=== PATIENT | female | born 1950 | race Caucasian/White ===

== ENCOUNTER 2019-04-02 09:34 | Outpatient (RCR) | payer MEDICARE, SELFPAY ==
[2019-04-02 10:09] LABS: Hemoglobin 11.7 g/dL (12.0-15.0); Mean Corpuscular Hemoglobin 25.4 pg (26-34); Mean Corpuscular Volume 84.6 fl (80-100); Mean Platelet Volume 9.2 fl (7.4-10.4); Platelet Count Result 183 k/mm3 (150-375); Red Blood Count 4.61 M/mm3 (4.2-5.4); Red Cell Distribution Width 16.7 % (11.5-14.5); White Blood Count 7.8 K/mm3 (4.5-10.0)
[2019-04-02 10:23] LABS: Alanine Aminotransferase 11 U/L (4-35); Alkaline Phosphatase 105 U/L (38-126); Aspartate Amino Transferase 20 U/L (14-36); Bilirubin,Total 0.3 mg/dL (0.2-1.3); Blood Urea Nitrogen 24 mg/dL (7-17); Calcium 9.4 mg/dL (8.4-10.2); Carbon Dioxide 35 mmol/L (22-30); Chloride 98 mmol/L (98-107); Estimated Glomerular Filt Rate > 60; Glucose 108 mg/dL (65-105); Potassium 4.7 mmol/L (3.4-5.0); Sodium 139 mmol/L (137-145)
== END 2019-07-01 23:59 | disposition home or self-care (01) ==
LOC: ANHLAB 09:34
PROVIDERS: Visit Provider Internal Medicine Rheumatology
DX: Z51.81 Encounter for therapeutic drug level monitoring (principal); Z79.899 Other long term (current) drug therapy
CPT/HCPCS: 36415; 80048; 80076; 85027

== ENCOUNTER 2019-04-05 08:03 | Outpatient (CLI) | payer MEDICARE, SELFPAY ==
--- NOTE | 2019-04-10 00:52 | SLEEP_ITS ---
BiPAP Titration DATE OF STUDY: 04/05/2019 ORDERING PHYSICIAN: Unruly Kirk, Nurse practitioner. REASON FOR THIS STUDY: History of obstructive sleep apnea syndrome on CPAP with oxygen, currently on CPAP with 4 L of oxygen, currently with hypercapnia, would benefit by a BiPAP titration. HISTORY: This patient is a 68-year-old female, 63 inches tall, weighing 120 pounds with a body mass index of 21.3. She has hypercapnic hypoxemic respiratory failure and is on oxygen chronically. She had a prior sleep study on 10/19/2010 that showed JOAQUIN with a RDI of 13.5 and desaturation. She had an abnormal resting room air saturation in the 80% range. A CPAP titration at [facility] on 12/30/2010 showed JOAQUIN, controlled on 9 cm of CPAP with supplemental oxygen at 4 L. She denies snoring. She does not awaken at night with heartburn, belching, or coughing. She denies awaking from sleep short of breath. She constantly has trouble sleeping with a cold and constantly gasps for breath at night. She denies that other people have observed her having breathing problems at night. She denies sweating excessively at night or noticing her heart pounding irregularly at night. She occasionally falls asleep during the day, occasionally involuntarily, never while driving, does not have loss of muscle tone with strong emotion, does not have daytime difficulties due to excessive sleepiness, occasionally does feel paralyzed on waking or falling asleep. She does not have vivid dreamlike scenes upon awakening or falling asleep. Denies feeling afraid to go to sleep, does not have nightmares, does not recall dreams, does not have racing thoughts, feelings of sadness, depression, anxiety, muscular tension. Denies kicking at night or having parts of her body jerk. She denies crawly achy feelings in her legs. She occasionally has leg pain at night. She does not have morning jaw pain and does not grind her teeth. She constantly is bothered by pain during the day as well as at night, constantly wakes up feeling stiff in the morning with sore achy muscles and spine pain. She has dizziness, palpitations, memory problems, and insomnia. Her sleep schedule shows that she goes to bed at about 9 p.m., taking 30 minutes to fall asleep, waking twice at night to go to the bathroom and staying awake on average for 1 hour. She awakens in the morning at 9 a.m. Weekend schedule is the same. She does take naps. A short nap might be refreshing. She is tired all the time even after taking a nap. She feels tired throughout the day. MEDICAL COMORBIDITIES: Include: 1. Hypertension. 2. Depression. 3. Atrial fibrillation. 4. COPD. 5. Chronic respiratory failure. MEDICATIONS: Include: 1. Oxygen at 5 L/minute, which was weaned at the last visit. 2. Losartan 25 mg a day. 3. Metformin 500 mg b.i.d. 4. Metoprolol succinate 100 mg a day. 5. Nortriptyline 25 mg at bedtime. 6. Ventolin 1 puff b.i.d. p.r.n. shortness of breath. 7. Diltiazem 60 mg q.8 hours. 8. Sertraline 50 mg a day. 9. Magnesium oxide 400 mg a day. 10. Potassium chloride 10 mEq daily. 11. Fluticasone furoate with umeclidinium and vilanterol, which is Trelegy 1 puff a day. 12. Furosemide 20 mg a day. 13. Roflumilast 500 mcg daily. HABITS: Previous tobacco. Two cups of coffee a day. No mention of alcohol. DESCRIPTION OF THE STUDY: On the [place] Sleepiness Scale, the score is 7. This was conducted as a full night BiPAP titration using the [employer] multiple channel system including EOG, EEG, submental EMG, EKG, nasal and oral airflow using thermistors and nasal pressure sensors, chest and abdominal belts, body position data and pulse oximetry. The study was scored using [facility] guidelines. Duration of the study, 508.6 son
== END 2019-04-05 08:04 | disposition home or self-care (01) ==
LOC: ANHCSM 08:04
PROVIDERS: Visit Provider Nurse Practitioner Family
DX: G47.33 Obstructive sleep apnea (adult) (pediatric) (principal)
CPT/HCPCS: 95811

== ENCOUNTER 2019-04-18 11:41 | Outpatient (CLI) | payer MEDICARE, SELFPAY ==
[2019-04-18 13:21] LABS: Hepatitis B Surface Antigen Negative (Negative)
[2019-04-18 13:38] LABS: Hepatitis B Surface Anti Res Negative; Hepatitis C Virus Antibody Negative (Negative)
[2019-04-20 18:04] LABS: Hepatitis C RNA, Quant PCR <15 IU/mL
[2019-04-20 18:22] LABS: Hepatitis B DNA PCR <1.00 Log IU/mL; Hepatitis B DNA PCR <10 IU/mL
[2019-04-20 23:23] LABS: NIL 0.01 IU/mL; Quantiferon TB Plus, 1T NEGATIVE (NEGATIVE); TB1-NIL 0.01 IU/mL
[2019-04-21 01:44] LABS: Hepatitis B Core Ab Total Nonreactive (Nonreactive)
== END 2019-04-18 11:42 | disposition home or self-care (01) ==
PROVIDERS: Visit Provider Internal Medicine Rheumatology
DX: Z11.59 Encounter for screening for other viral diseases (principal)
CPT/HCPCS: 36415; 86480; 86704; 86706; 86803; 87340; 87517; 87522

== ENCOUNTER 2019-05-26 22:11 | Emergency (ER) | payer MEDICARE, SELFPAY ==
[2019-05-26 22:13] VITALS: BP 158/72; PULSE 76; RESP 20; TEMP 36.4; O2SAT 92
--- NOTE | 2019-05-26 23:09 | ED.GENADULT ---
HPI - General Adult General Chief complaint: Ear Stated complaint: ear pain, ST Time Seen by Provider: 05/26/19 22:16 History of Present Illness HPI narrative: Patient is a 69-year-old female who presents the ER with several issues. Her main issue is right-sided jaw pain. She open her mouth earlier in evening and felt a pop at the mandibular condyle on the right side. Since then she has had pain with opening her mouth. Her teeth align normally she has no difficulty breathing or swallowing. Patient also reports over the last week she has had 2 episodes of having a sore throat as well as right ear pain. Denies any tinnitus or decreased hearing. Denies fever/chills/sweats/nausea/vomiting. Patient has chronic cough from her COPD as well as chronic dyspnea. She wears 4 L O2 at baseline. Related Data Home Medications Medication Instructions Recorded Confirmed Trelegy Ellipta 1 inh INHALATION DAILY 03/21/19 03/21/19 atorvastatin 10 mg PO DAILY 03/21/19 03/21/19 diltiazem HCl See Rx Instructions .ROUTE .COMPLEX 03/21/19 03/21/19 furosemide 40 mg PO DAILY 03/21/19 03/21/19 leflunomide 20 mg PO DAILY 03/21/19 03/21/19 losartan 25 mg PO DAILY 03/21/19 03/21/19 magnesium oxide 400 mg PO DAILY 03/21/19 03/21/19 metformin 500 mg PO BID 03/21/19 03/21/19 metoprolol succinate 100 mg PO DAILY 03/21/19 03/21/19 nortriptyline 25 mg PO DAILY 03/21/19 03/21/19 potassium chloride 20 meq PO DAILY 03/21/19 03/21/19 sertraline 50 mg PO HS 03/21/19 03/21/19 Allergies Allergy/AdvReac Type Severity Reaction Status Date / Time morphine Allergy Mild Itching Verified 05/26/19 22:16 pregabalin Allergy Unknown Itching Verified 05/26/19 22:16 Review of Systems Review of Systems: All systems reviewed & are unremarkable except as noted in HPI and below Constitutional: Constitutional: Denies fever(s) and Denies weakness ENT: Reports sore throat Comments: Rhinorrhea, right ear and jaw pain Respiratory: Respiratory: Denies chest congestion, Reports cough and Denies dyspnea PMFSH Past Medical History Medical History A-fib With an ablation and paroxysmal Afib Anxiety CAD (coronary artery disease) CAD (coronary artery disease) s/p 3stents CHF (congestive heart failure) Chronic anemia Chronic respiratory failure with hypoxia Chronically on oxygen at 5 L per nasal cannula. Congestive heart failure Diastolic COPD (chronic obstructive pulmonary disease) COPD (chronic obstructive pulmonary disease) 3L oxygen use during day and night Depression Diabetes DM2 (diabetes mellitus, type 2) GERD (gastroesophageal reflux disease) Heart attack May History of kidney stones History of subarachnoid hemorrhage January 17, 2018. This occurred after a fall and resolved with conservative approach HLD (hyperlipidemia) HTN (hypertension) HTN (hypertension) with goal to be determined Hyperlipidemia Irritable bowel Irritable bowel Kidney stone 2003 with surgery Myocardial infarction On home O2 JOAQUIN on CPAP Peripheral neuropathy Pulmonary nodules Rheumatoid arthritis Rheumatoid arthritis Subarachnoid hemorrhage from fall in 12/2017 Surgical History Surgical History H/O heart artery stent 3 stents [address] [facility]. hummel February 2018 H/O lithotripsy H/O: hysterectomy History of cholecystectomy Hx of cholecystectomy Hx of hysterectomy S/P ablation of atrial fibrillation Status post bilateral foot surgery Social History Social History Social History: The patient desires to be a full code. Her is the durable power workers compensation attorney for healthcare. She has 3 sons. Patient quit smoking in 2011. No alcohol or drug use. 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 They live in [facility]. When talking about being a full code the patient stated that she only wants 1 attempt to resuscit
[2019-05-26 23:59] VITALS: BP 128/77; PULSE 88; RESP 18; O2SAT 95
== END 2019-05-27 | disposition home or self-care (01) ==
PROVIDERS: Emergency Provider Emergency Medicine
DX: R68.84 Jaw pain (principal); H61.23 Impacted cerumen, bilateral; I48.0 Paroxysmal atrial fibrillation; I25.10 Atherosclerotic heart disease of native coronary artery without angina pectoris; I50.30 Unspecified diastolic (congestive) heart failure; J96.11 Chronic respiratory failure with hypoxia; Z99.81 Dependence on supplemental oxygen; J44.9 Chronic obstructive pulmonary disease, unspecified; I25.2 Old myocardial infarction; Z87.442 Personal history of urinary calculi; E78.5 Hyperlipidemia, unspecified; I11.0 Hypertensive heart disease with heart failure; K58.9 Irritable bowel syndrome, unspecified; G47.33 Obstructive sleep apnea (adult) (pediatric); E11.42 Type 2 diabetes mellitus with diabetic polyneuropathy; M06.9 Rheumatoid arthritis, unspecified; Z95.5 Presence of coronary angioplasty implant and graft; Z87.891 Personal history of nicotine dependence; Z79.84 Long term (current) use of oral hypoglycemic drugs
CPT/HCPCS: 69210; 99283; A9270

== ENCOUNTER 2019-05-27 18:17 | Emergency (ER) | payer MEDICARE, SELFPAY ==
[2019-05-27 18:20] VITALS: BP 196/101; PULSE 65; RESP 18; TEMP 36.4; O2SAT 100
--- NOTE | 2019-05-27 18:27 | ECG_ITS ---
Measurements Intervals [place] Rate: 61 P: 74 NV: 144 QRS: -25 QRSD: 89 T: 48 QT: 409 QTc: 413 Interpretive Statements SINUS RHYTHM LEFT ATRIAL ENLARGEMENT CANNOT RULE OUT SEPTAL INFARCT, AGE INDETERMINATE BASELINE WANDER- I, II, V6 ABNORMAL ECG Electronically Signed On 05-28-2019 7:17:45 CDT by Joshua Bennett D.O.
--- NOTE | 2019-05-27 18:29 | ED.NEUROSD ---
HPI - Neuro Symptoms/Deficit General Chief Complaint: Neuro Symptoms/Deficit Stated Complaint: CONFUSION Time Seen by Provider: 05/27/19 18:27 Source: patient and RN notes reviewed Mode of arrival: EMS Limitations: no limitations History of Present Illness HPI Narrative: Pt is a 69 y/o female who presents to the ED, via EMS, with c/o confusion that began earlier today. Pt's spouse states the pt was confused for about 45 minutes. Pt's spouse states the pt was talking goofy and was shaking. 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 Pt's spouse states the pt will shake when 'one of her numbers are off, but her numbers have been right.' Pt was here at [place] yesterday for jaw pain and had irrigation of both ears, but the pt states that her pain never went away. Pt has a hx of COPD and wears 6L of O2 at baseline. Pt also reports otalgia, sore throat, and resolved dizziness, but denies worsening dyspnea and chest pain. Onset (ago): hour(s) Severity: mild On Anticoagulants: No Associated symptoms: confusion and other (otalgia, resolved dizziness, sore throat, shakiness) Treatments Prior to Arrival: none Related Data Home Medications Medication Instructions Recorded Confirmed Trelegy Ellipta 1 inh INHALATION DAILY 03/21/19 03/21/19 atorvastatin 10 mg PO DAILY 03/21/19 03/21/19 diltiazem HCl See Rx Instructions .ROUTE .COMPLEX 03/21/19 03/21/19 furosemide 40 mg PO DAILY 03/21/19 03/21/19 leflunomide 20 mg PO DAILY 03/21/19 03/21/19 losartan 25 mg PO DAILY 03/21/19 03/21/19 magnesium oxide 400 mg PO DAILY 03/21/19 03/21/19 metformin 500 mg PO BID 03/21/19 03/21/19 metoprolol succinate 100 mg PO DAILY 03/21/19 03/21/19 nortriptyline 25 mg PO DAILY 03/21/19 03/21/19 potassium chloride 20 meq PO DAILY 03/21/19 03/21/19 sertraline 50 mg PO HS 03/21/19 03/21/19 Allergies Allergy/AdvReac Type Severity Reaction Status Date / Time morphine Allergy Mild Itching Verified 05/27/19 18:32 pregabalin Allergy Unknown Itching Verified 05/27/19 18:32 Review of Systems Review of Systems: All systems reviewed & are unremarkable except as noted in HPI and below ENT: Reports otalgia and Reports sore throat Cardiovascular: Cardiovascular: Denies chest pain Respiratory: Respiratory: Denies dyspnea (worsening) Neurologic: Reports confusion, Reports dizziness (resolved) and Reports other (shakiness) PMFSH Family History Family History Sibling Diabetes mellitus Father Diabetes mellitus Asthma Pulmonary embolism Mother Family history of malignant neoplasm of breast in first degree relative Murder Mother Breast cancer Father Diabetes mellitus Asthma Blood clot in vein Social History Social History Social History: The patient desires to be a full code. Her is the durable power securities attorney for healthcare. She has 3 sons. Patient quit smoking in 2011. No alcohol or drug use. 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 When talking about being a full code the patient stated that she only wants 1 attempt to resuscitate her and if it does not work then she wants to be left alone. Smoking packs per day: 1.5 Smoking cigarettes per day: 30.0 Years smoked: 46 Smoking pack-years: 69.00 Smoking status: Former smoker Tobacco type: cigarettes Second hand tobacco smoke exposure: No Smoking end date: 02/28/13 Alcohol intake: former Drinks per week: 1 Substance use: never Substance use type: marijuana Other substance usage details: medical marijuana last week Gender identity (if verbalized by the patient): Female Spiritual care concerns: No Agree to blood products: No Exam Const: General: no acute distress and ill appearing chronically Nutritional Appearance: well nourished HENMT: Mouth: Yes lip normal and Yes moist
[2019-05-27 18:54] LABS: Basophils Absolute Auto 0.1 K/mm3 (0.0-0.1); Basophils Percent Auto 0.8 % (0.2-1.2); Eosinophils Absolute Auto 1.6 K/mm3 (0-0.3); Eosinophils Percent Auto 16.8 % (0-4.4); Hematocrit 38.5 % (37.0-47.0); Hemoglobin 11.7 g/dL (12.0-15.0); Immature Granulocyte Absolute 0.04 K/mm3 (0.00-0.031); Immature Granulocyte Percent A 0.4 % (0-0.5); Lymphocytes Absolute Auto 2.01 K/mm3 (0.9-3.2); Lymphocytes Percent Auto 21.7 % (18.3-44.2); Mean Corpuscular HGB Conc 30.4 g/dl (32-36); Mean Corpuscular Hemoglobin 26.8 pg (26-34); Mean Corpuscular Volume 88.3 fl (80-100); Mean Platelet Volume 10.3 fl (7.4-10.4); Monocytes Absolute Auto 0.6 K/mm3 (0.1-0.6); Monocytes Percent Auto 6.9 % (2.6-8.5); Neutrophils Absolute Auto 4.9 K/mm3 (1.3-6.7); Neutrophils Percent Auto 53.4 % (45.5-73.1); Platelet Count Result 205 k/mm3 (150-375); Red Blood Count 4.36 M/mm3 (4.2-5.4); Red Cell Distribution Width 15.6 % (11.5-14.5); White Blood Count 9.3 K/mm3 (4.5-10.0)
[2019-05-27 19:05] LABS: Alanine Aminotransferase 11 U/L (4-35); Albumin Level 4.2 g/dL (3.5-5.1); Alkaline Phosphatase 97 U/L (38-126); Aspartate Amino Transferase 23 U/L (14-36); Bilirubin,Total 0.4 mg/dL (0.2-1.3); Blood Urea Nitrogen 27 mg/dL (7-17); Calcium 9.5 mg/dL (8.4-10.2); Carbon Dioxide 37 mmol/L (22-30); Chloride 98 mmol/L (98-107); Estimated CRCL calculation 48 ml/min; Estimated Glomerular Filt Rate > 60; Glucose 134 mg/dL (65-105); Potassium 4.5 mmol/L (3.4-5.0); Sodium 140 mmol/L (137-145)
[2019-05-27 19:10] LABS: Add Urine Microscopic? YES; Appearance Urine Clear (Clear); Bacteria Urine 2+ /hpf; Bilirubin Urine Negative (Negative); Blood Urine 1+ (Negative); Color Urine Yellow (Yellow); Glucose Urine UA Negative (Negative); Ketones Urine Negative (Negative); Leukocyte Esterase Ur 1+ LEU/UL (Negative); Mucus Urine Rare /lpf; Nitrate Urine Positive (Negative); Protein Urine 1+ mg/dL (Negative); RBC Urine 21-50 /hpf (0-2); Specific Grav Ur 1.026 (1.001-1.035); Squamous Epithelial Cell Urine Moderate /hpf (Few); Urobilinogen Urine Negative mg/dL (<2.0); WBC Urine 51-75 /hpf
[2019-05-27 19:11] LABS: Alveolar/Arterial O2 Gradient 85.8 mmHg; Base Excess ABG 7.7 mEq/l (+/-2.0); Fractional Inspired Oxygen 40 %; HCO3 ABG 34.8 mEq/l (22.0-26.0); Oxygen Content ABG 16.9 %vol (16.0-22.0); Oxygen Saturation ABG 98.4 % (95.0-100.0); Oxyhemoglobin 97.1 % THb (90.0-100.0); PO2 ABG 128.9 mmHg (80.0-100.0); PO2 FiO2 Ratio Arterial Blood 3.22 %; Total Hemoglobin 12.2 g/dL (12.0-18.0); pH ABG 7.372 (7.350-7.450)
[2019-05-27 19:13] LABS: Device NASAL CANNULA; PCO2 ABG 61.3 mmHg (35.0-45.0); Site Drawn RIGHT BRACHIAL
[2019-05-27 19:17] LABS: Troponin I < 0.012 ng/mL (0.000-0.034)
[2019-05-27] MEDS: CEFDINIR 300 MG CAPSULE PO (19:46)
[2019-05-27 19:56] VITALS: BP 188/82; PULSE 72; RESP 16; O2SAT 100
== END 2019-05-27 19:58 | disposition home or self-care (01) ==
PROVIDERS: Emergency Medicine; Emergency Provider Emergency Medicine
DX: N30.01 Acute cystitis with hematuria (principal); Z87.891 Personal history of nicotine dependence; J44.9 Chronic obstructive pulmonary disease, unspecified; Z99.81 Dependence on supplemental oxygen; R94.31 Abnormal electrocardiogram [ECG] [EKG]
CPT/HCPCS: 36415; 36600; 80053; 81001; 82805; 84484; 85025; 87077; 87086; 87088; 87186; 93005; 99284; A9270

== ENCOUNTER 2019-07-16 18:37 | Inpatient (IN) | payer MEDICARE, SELFPAY ==
[2019-07-16] VITALS (9 sets, daily range): BP systolic 144–152; BP diastolic 71–115; PULSE 81–188; RESP 16–22; TEMP 36.2–36.8; O2SAT 97–100; BMI 24.0
--- NOTE | ~2019-07-16 | XR_ITS ---
EXAMINATION: XR chest 2V DATE: 07/16/2019 19:54 INDICATION: Chest pain TECHNIQUE: AP and lateral views of the chest are obtained. COMPARISON: 03/21/2019 FINDINGS: The lungs are hyperinflated with chronic lucencies in the upper lung zones, consistent with emphysema. The lungs are free of acute opacities. There is no pleural effusion or pneumothorax. The cardiomediastinal silhouette is normal. There is mild thoracic spondylosis. Healing right-sided rib f ractures are noted. IMPRESSION: 1. Emphysema. Reviewed, dictated and finalized at location A. IMPRESSION: 1. Emphysema.
--- NOTE | 2019-07-16 18:39 | ECG_ITS ---
Measurements Intervals [place] Rate: 185 P: [place]: 0 QRS: -30 QRSD: 95 T: 78 QT: 254 QTc: 446 Interpretive Statements SUPRAVENTRICULAR TACHYCARDIA BORDERLINE R WAVE PROGRESSION, ANTERIOR LEADS ST-T WAVE ABNORMALITY IN LATERAL LEADS- CONSIDER ISCHEMIA OR RATE RELATED ABNORMAL ECG Electronically Signed On 07-17-2019 7:02:19 CDT by Joshua Bennett D.O.
[2019-07-16] MEDS: SODIUM CHLORIDE 0.9% IV 1,000 ML 999 ML IV CONT (18:52)
[2019-07-16] MEDS: ADENOSINE IV SOLN 6 MG/2 ML VIAL IV PUSH (18:53)
[2019-07-16] MEDS: ADENOSINE IV SOLN 6 MG/2 ML VIAL 18 MG (18:57)
--- NOTE | 2019-07-16 19:03 | ED.SOB ---
HPI - SOB/Dyspnea General Chief Complaint: Shortness of Breath/Dyspnea Stated Complaint: SOB, CP Time Seen by Provider: 07/16/19 18:44 Source: patient Mode of arrival: ambulatory Limitations: no limitations History of Present Illness HPI Narrative: Patient is a 69-year-old female who presents to the emergency department with acute onset of chest pain and shortness of breath approximately an hour prior to arrival. Patient has history of coronary artery disease, COPD, and A. fib. She is on home O2. Patient rates her chest pain 10 out of 10 and describes it as crushing and constant. Patient has had prior history of ablation for her atrial fibrillation. MD elicited complaint: shortness of breath and chest pain Onset (ago): hour(s) Related Data Home oxygen amount: 4 liters Home Medications Medication Instructions Recorded Confirmed atorvastatin 10 mg PO DAILY 03/21/19 07/16/19 diltiazem HCl 60 mg PO TID 03/21/19 07/16/19 furosemide 40 mg PO DAILY 03/21/19 07/16/19 leflunomide 20 mg PO DAILY 03/21/19 07/16/19 losartan 25 mg PO DAILY 03/21/19 07/16/19 magnesium oxide 400 mg PO DAILY 03/21/19 07/16/19 metformin 500 mg PO BID 03/21/19 07/16/19 metoprolol succinate 100 mg PO DAILY 03/21/19 07/16/19 nortriptyline 25 mg PO DAILY 03/21/19 07/16/19 potassium chloride 20 meq PO DAILY 03/21/19 07/16/19 sertraline 50 mg PO HS 03/21/19 07/16/19 roflumilast 500 mcg tablet 500 mcg PO DAILY 06/20/19 07/16/19 umeclidinium 62.5 mcg-vilanterol 1 inhalation INHALATION DAILY 06/20/19 07/16/19 25 mcg/actuation powdr for inhalation levalbuterol HCl 1.25 mg INHALATION Q4H PRN 07/16/19 07/16/19 Allergies Allergy/AdvReac Type Severity Reaction Status Date / Time morphine Allergy Mild Itching Verified 05/27/19 18:32 pregabalin Allergy Unknown Itching Verified 05/27/19 18:32 Review of Systems Review of Systems: All systems reviewed & are unremarkable except as noted in HPI and below Constitutional: Constitutional: Denies fever(s) Cardiovascular: Cardiovascular: Reports chest pain Respiratory: Respiratory: Denies cough and Reports dyspnea Gastrointestinal: Gastrointestinal: Reports nausea and Reports vomiting (Dry heaves) [facility] Past Medical History Medical History (Updated 07/17/19 @ 12:35 by Marianna Martinez MD) A-fib With an ablation and paroxysmal Anxiety CAD (coronary artery disease) s/p 3stents Non STEMI May 2017 Chronic anemia Chronic respiratory failure with hypoxia Chronically on oxygen at 5 L per nasal cannula. Congestive heart failure Diastolic with most recent echocardiogram January 2019 demonstrating paradoxical septal motion consistent with right ventricular volume overload or elevated right ventricular end-diastolic pressure, EF 60-65%, mildly increased left ventricular wall thickness, grade 1 diastolic dysfunction, severely reduced right ventricular systolic function, severely enlarged right ventricular chamber, severely enlarged right atrial chamber, [id number] mitral valve regurgitation, trace tricuspid regurgitation, mild pulmonary hypertension with RVSP of 46 COPD (chronic obstructive pulmonary disease) 3L oxygen use during day and night Depression DM2 (diabetes mellitus, type 2) GERD (gastroesophageal reflux disease) History of kidney stones HTN (hypertension) Hyperlipidemia Irritable bowel Kidney stone 2004 with surgery Obstructive sleep apnea With last sleep study March 2019 recommending auto bilevel with 5 L of oxygen Peripheral neuropathy Pulmonary nodules Rheumatoid arthritis Subarachnoid hemorrhage from fall in 12/2017 Surgical History Surgical History (Updated 07/17/19 @ 03:09 by Beatriz De Paz DO) H/O heart artery stent 3 stents at [facility]. Dr. hummel February 2018 H/O lithotripsy H/O: hysterectomy History of cholecystectomy History of hysterectomy S/P ablation of atrial fibrillation Status post bilateral foot surgery Family History Family History (U
[2019-07-16 19:09] LABS: Basophils Absolute Auto 0.1 K/mm3 (0.0-0.1); Basophils Percent Auto 0.5 % (0.2-1.2); Eosinophils Absolute Auto 0.5 K/mm3 (0-0.3); Eosinophils Percent Auto 3.9 % (0-4.4); Hematocrit 45.4 % (37.0-47.0); Hemoglobin 14.1 g/dL (12.0-15.0); Immature Granulocyte Absolute 0.13 K/mm3 (0.00-0.031); Immature Granulocyte Percent A 1.1 % (0-0.5); Lymphocytes Percent Auto 25.1 % (18.3-44.2); Mean Corpuscular HGB Conc 31.1 g/dl (32-36); Mean Corpuscular Hemoglobin 27.7 pg (26-34); Mean Corpuscular Volume 89.2 fl (80-100); Mean Platelet Volume 9.7 fl (7.4-10.4); Monocytes Absolute Auto 0.7 K/mm3 (0.1-0.6); Monocytes Percent Auto 5.7 % (2.6-8.5); Neutrophils Absolute Auto 7.4 K/mm3 (1.3-6.7); Neutrophils Percent Auto 63.7 % (45.5-73.1); Platelet Count Result 244 k/mm3 (150-375); Red Blood Count 5.09 M/mm3 (4.2-5.4); Red Cell Distribution Width 14.2 % (11.5-14.5); White Blood Count 11.6 K/mm3 (4.5-10.0)
[2019-07-16 19:18] LABS: INR 0.9; Prothrombin Time 11.9 Seconds (11.1-14.7)
[2019-07-16 19:19] LABS: Partial Thromboplastin Time 25.5 SECONDS (22.3-36.8)
--- NOTE | 2019-07-16 19:20 | ECG_ITS ---
Measurements Intervals [place] Rate: 81 P: 72 WI: 152 QRS: -26 QRSD: 94 T: 62 QT: 373 QTc: 434 Interpretive Statements SINUS RHYTHM POSSIBLE LEFT ATRIAL ENLARGEMENT BORDERLINE R WAVE PROGRESSION, ANTERIOR LEADS BORDERLINE ST ABNORMALITY- INF/LAT LEADS BASELINE WANDER- AVR, AVL, AVF BORDERLINE ECG Electronically Signed On 07-18-2019 12:30:56 CDT by Joshua Bennett D.O.
[2019-07-16 19:42] LABS: Troponin I 0.035 ng/mL (0.000-0.034)
[2019-07-16] MEDS: ASPIRIN 81 MG CHEWABLE TABLET 324 MG PO (20:10)
--- NOTE | 2019-07-16 20:40 | ADMGEN ---
This patient, Piedad Andrade, was admitted to IMU Room 214-01. Patient/family oriented to hospital policies and general routines including ID bracelet, bed and alarms, visiting hours, pain management, procedures, bathroom and other care routines, personal items, smoking policy, room service/diet, and visiting hours. Valuables list has been completed. Information on how to activate the Rapid Response Team has been discussed. Patient/Family are encouraged to report perceived risks to care and to ask questions if they do not understand what they are told or what they should do.
[2019-07-16 20:45] LABS: Magnesium 1.5 mg/dL (1.6-2.3)
[2019-07-16 20:46] LABS: Alanine Aminotransferase 33 U/L (4-35); Albumin Level 3.4 g/dL (3.5-5.1); Alkaline Phosphatase 135 U/L (38-126); Aspartate Amino Transferase 58 U/L (14-36); Bilirubin,Total 0.2 mg/dL (0.2-1.3); Blood Urea Nitrogen 18 mg/dL (7-17); Calcium 8.8 mg/dL (8.4-10.2); Carbon Dioxide 35 mmol/L (22-30); Chloride 102 mmol/L (98-107); Estimated CRCL calculation 56 ml/min; Estimated Glomerular Filt Rate > 60; Glucose 166 mg/dL (65-105); Potassium 4.2 mmol/L (3.4-5.0); Sodium 138 mmol/L (137-145)
[2019-07-16 20:55] LABS: NT Pro B Type Natriuretic Pept 1290 PG/ML (5-100)
[2019-07-16 21:01] LABS: Glucose Point of Care 145 (65-105)
[2019-07-16 22:36] LABS: Troponin I 0.121 ng/mL (0.000-0.034)
[2019-07-17] VITALS (18 sets, daily range): BP systolic 150–195; BP diastolic 77–95; PULSE 64–95; RESP 20–22; TEMP 36–37; O2SAT 95–100
[2019-07-17 01:45] LABS: Troponin I 0.252 ng/mL (0.000-0.034)
--- NOTE | 2019-07-17 02:50 | PM.IMHP ---
H&P: HPI History of Present Illness Chief complaint: Chest pain similar to when she had prior SVT Narrative: Date and time of patient contact: 07/17/2019 at 4:40 a.m. Piedad Adnrade is a 69 year old female with a past medical history of paroxysmal SVT, COPD, coronary artery disease, and chronic hypoxic respiratory failure who presented to the ER from home via private vehicle approximately 45 minutes after onset of shortness of breath, racing heart and chest pain similar to when she had her prior episodes of SVT. She was sitting down watching TV when her symptoms started. The patient reports that her pain was 10/10 in intensity and crushing in intensity. It was constant until her SVT resolved. When she arrived to the ER heart rate was 188. Her EKG confirmed SVT. With 1 dose of adenosine 6 mg. The patient reports that she feels like she is back to her baseline. Patient denies any other complaints. She does have a history of low magnesium levels and reports that she has been compliant with her magnesium therapy. However her magnesium level was slightly low 1.5. She denies any changes in her cardiac medications. The patient seems slow to answer some questions. She could not tell me what year it was or how old she is. She does admit that her memory has been slipping gradually over the course of time. She denies any difficulty speaking or thinking of words. She has not been having any difficulty with ambulation. She has not had any recent cough or congestion. Otherwise her health is at baseline. She denies any recent diarrhea or constipation. She has not been having any urinary symptoms. She reports that her appetite has been fair. Review of Systems Review of Systems: Narrative: 12 systems were reviewed with pertinent positives and negatives per HPI. Except as documented in the HPI, all other systems were reviewed and are negative. [facility] Past Medical History Medical History (Updated 07/17/19 @ 07:17 by Beatriz De Paz DO) A-fib With an ablation and paroxysmal Anxiety CAD (coronary artery disease) s/p 3stents Non STEMI May 2017 Chronic anemia Chronic respiratory failure with hypoxia Chronically on oxygen at 5 L per nasal cannula. Congestive heart failure Diastolic with most recent echocardiogram January 2019 demonstrating paradoxical septal motion consistent with right ventricular volume overload or elevated right ventricular end-diastolic pressure, EF 60-65%, mildly increased left ventricular wall thickness, grade 1 diastolic dysfunction, severely reduced right ventricular systolic function, severely enlarged right ventricular chamber, severely enlarged right atrial chamber, [id number] mitral valve regurgitation, trace tricuspid regurgitation, mild pulmonary hypertension with RVSP of 46 COPD (chronic obstructive pulmonary disease) 3L oxygen use during day and night Depression DM2 (diabetes mellitus, type 2) GERD (gastroesophageal reflux disease) History of kidney stones HTN (hypertension) Hyperlipidemia Irritable bowel Kidney stone 2003 with surgery Obstructive sleep apnea With last sleep study March 2019 recommending auto bilevel with 5 L of oxygen Peripheral neuropathy Pulmonary nodules Rheumatoid arthritis Subarachnoid hemorrhage from fall in 12/2017 Surgical History Surgical History (Updated 07/17/19 @ 03:09 by Beatriz De Paz DO) H/O heart artery stent 3 stents at [facility]. Dr. hummel February 2018 H/O lithotripsy H/O: hysterectomy History of cholecystectomy History of hysterectomy S/P ablation of atrial fibrillation Status post bilateral foot surgery Family History Family History (Updated 07/17/19 @ 02:53 by Beatriz De Paz DO) Sibling Diabetes mellitus Father Diabetes mellitus Asthma Pulmonary embolism Mother Murder Breast cancer Social History Social History (Updated 07/17/19 @ 02:57 by Beatriz De Paz DO) Social History:
[2019-07-17] MEDS: MAGNESIUM SULF 2 GM/WATER 50ML 2 GM/50 ML BAG IVPB (03:13)
[2019-07-17] MEDS: SERTRALINE HCL 50 MG TABLET PO ×2 (04:25→21:19)
[2019-07-17] MEDS: MAGNESIUM SULF 1 GM/D5W 100 ML 1 GM/100 ML BAG IVPB (04:51)
[2019-07-17] MEDS: DILTIAZEM HCL 60 MG TABLET PO (04:55)
[2019-07-17] MEDS: METOPROLOL SUCCINATE EXT REL 100 MG TABCR PO (08:33)
[2019-07-17] MEDS: ASPIRIN 81 MG CHEWABLE TABLET PO (08:33)
[2019-07-17] MEDS: MAGNESIUM OXIDE 400 MG TABLET PO (08:33)
[2019-07-17] MEDS: POTASSIUM CHLORIDE 20 MEQ TABLET.ER PO (08:33)
[2019-07-17] MEDS: LEFLUNOMIDE 20 MG TABLET PO (08:33)
[2019-07-17] MEDS: ROFLUMILAST 500 MCG TABLET PO (08:33)
[2019-07-17] MEDS: NORTRIPTYLINE HCL 25 MG CAPSULE PO (08:34)
[2019-07-17] MEDS: LOSARTAN POTASSIUM 25 MG TABLET PO ×2 (08:34→22:32)
[2019-07-17] MEDS: METOPROLOL SUCCINATE EXT REL 50 MG TABCR PO (08:34)
[2019-07-17] MEDS: ATORVASTATIN 10 MG TABLET PO (08:34)
[2019-07-17 08:45] LABS: Glucose Point of Care 161 (65-105)
--- NOTE | 2019-07-17 09:04 | PHAR ---
HOME MEDICATION VERIFIED BY PHARMACY: ANNELRO ELLIPTA 62.5/25 MCG INHALER
[2019-07-17] MEDS: metFORMIN HCL XR 500 MG TAB.SR.24H PO ×2 (11:49→17:20)
[2019-07-17] MEDS: FUROSEMIDE 40 MG TABLET PO (11:49)
[2019-07-17] MEDS: ENOXAPARIN 40 MG/0.4 ML SYRINGE SUB-Q (11:49)
[2019-07-17 12:29] LABS: Glucose Point of Care 161 (65-105)
[2019-07-17 13:51] LABS: Blood Urea Nitrogen 15 mg/dL (7-17); Calcium 9.2 mg/dL (8.4-10.2); Carbon Dioxide 38 mmol/L (22-30); Chloride 95 mmol/L (98-107); Estimated CRCL calculation 48 ml/min; Estimated Glomerular Filt Rate > 60; Glucose 258 mg/dL (65-105); Magnesium 2.1 mg/dL (1.6-2.3); Potassium 4.3 mmol/L (3.4-5.0); Sodium 138 mmol/L (137-145)
--- NOTE | 2019-07-17 14:14 | PM.CNCAR ---
Assessment and Plan Assessment and plan (1) SVT (supraventricular tachycardia): Code(s): I47.1 - Supraventricular tachycardia Status: Acute Assessment and Plan: Recurrence. Will increase her diltiazem up to 90 mg p.o. t.i.d.. Continue other medical regimen without change. (2) Chest pain: Qualifiers: Chest pain type: unspecified Qualified Code(s): R07.9 - Chest pain, unspecified Code(s): R07.9 - Chest pain, unspecified Status: Acute Assessment and Plan: Related to SVT +/-underlying CAD (3) CAD (coronary artery disease): Qualifiers: Coronary Disease-Associated Artery/Lesion type: [place] artery [place] vs. transplanted heart: [place] heart Associated angina: without angina Qualified Code(s): I25.10 - Atherosclerotic heart disease of [place] coronary artery without angina pectoris Code(s): I25.10 - Atherosclerotic heart disease of [place] coronary artery without angina pectoris Status: Acute Assessment and Plan: Stable. Continue statin, beta-samir, aspirin, ARB (4) Elevated troponin: Code(s): R79.89 - Other specified abnormal findings of blood chemistry Status: Acute Assessment and Plan: Likely related to demand ischemia from elevated heart rate. Will repeat a troponin now. Repeat an EKG (5) COPD (chronic obstructive pulmonary disease): Code(s): J44.9 - Chronic obstructive pulmonary disease, unspecified Status: Chronic Assessment and Plan: Oxygen-dependent (6) Hypomagnesemia: Code(s): E83.42 - Hypomagnesemia Status: Acute Assessment and Plan: Increased magnesium oxide 4 mg p.o. b.i.d. Anticipate discharge tomorrow History of Present Illness History of Present Illness Consult date/time: 07/17/19 14:14 Requesting physician: Marianna Martinez MD Consult reason: chest pain and Other (SVT) Reason For Visit: Chest pain similar to when she had prior SVT Narrative: Reason for consultation: SVT, chest pain Date of service 07/17/2019 History patient is a 69-year-old female patient of mine who has a history of paroxysmal supraventricular tachycardia, coronary artery disease, COPD, chronic hypoxic respiratory failure who presented to the hospital because of chest pain. Patient states that she has been having intermittent episodes of chest pain and squeezing a couple times per week. She states that this is really nothing new but usually her symptoms. After she sits down or lays down but yesterday they did not. She did check her pulse oxygenation and her heart rate was over 200 and therefore she came to the hospital. Typically when her she has her chest squeezing sensation, it is at that time she notices that her heart rate is fast. Again generally she would lay down or try to relax and her symptoms would resolve. She has had an ablation in the past. She denies any significant shortness of breath associated with it. She does feel weak and drained. She came to the emergency room was found to be in supraventricular tachycardia. She subsequently converted back to sinus rhythm. She had another burst of SVT this morning. Right now she feels fine and otherwise denies any exertional chest pain, recent syncope, presyncope, paroxysmal nocturnal dyspnea, orthopnea, edema, palpitations. Review of Systems Review of Systems: All systems reviewed & are unremarkable except as noted in HPI and below Constitutional: Constitutional: Reports fatigue Eyes: Eyes: Denies blurry vision ENT: Reports Normal hearing present and Denies epistaxis Cardiovascular: Cardiovascular: Reports chest pain Respiratory: Respiratory: Reports dyspnea Gastrointestinal: Gastrointestinal: Denies abdominal pain Genitourinary: Genitourinary: Denies hematuria and Denies nocturia Musculoskeletal: Musculoskeletal: Denies neck pain Integumentary/Breasts: Skin/Breast: Denies dry skin Neurologic: Denies headache(s) a
--- NOTE | 2019-07-17 14:22 | ECG_ITS ---
Measurements Intervals [place] Rate: 81 P: 70 [place]: 150 QRS: -23 QRSD: 87 T: 57 QT: 371 QTc: 433 Interpretive Statements SINUS RHYTHM LEFT ATRIAL ENLARGEMENT CANNOT RULE OUT SEPTAL INFARCT, AGE INDETERMINATE BORDERLINE ST-T WAVE ABNORMALITY- LATERAL LEADS ABNORMAL ECG Electronically Signed On 07-17-2019 15:20:17 CDT by Joshua Bennett D.O.
[2019-07-17 15:17] LABS: Troponin I 0.197 ng/mL (0.000-0.034)
[2019-07-17 17:01] LABS: Glucose Point of Care 162 (65-105)
--- NOTE | 2019-07-17 17:50 | PM.IMPN ---
Progress Note: A&P Assessment and Plan (1) SVT (supraventricular tachycardia): Code(s): I47.1 - Supraventricular tachycardia Status: Acute Assessment and Plan: Will replace patient's magnesium with 3 gram magnesium sulfate rider. Patient is being monitored in the IMU on telemetry. Cardiology has been consulted. Will continue patient's home leflunomide, Cardizem, and metoprolol. Cardiology has been consulted for further recommendations given the patient's recurrent SVT. 07/17/19 17:50 Patient is 69-year-old female with history of severe COPD and recurrent SVT patient presented emergency department with shortness of breath SVT with a rate of 188 confirm on the EKG patient was given adenosine 6 mg IV which did help and her rate trended down, also patient magnesium was quite low and supplemented patient is seen by in file operator increase held diltiazem 90 mg t.i.d. and magnesium [place] mg b.i.d., currently patient clinically stable rate is controlled, any chest pain shortness of breath palpitation fever or chills, patient is seen by in file operator further recommendation to follow, patient will benefit consulting mainframe programmer (2) Chest pain: Qualifiers: Chest pain type: unspecified Qualified Code(s): R07.9 - Chest pain, unspecified Code(s): R07.9 - Chest pain, unspecified Status: Acute Assessment and Plan: Likely due to the patient's SVT. Chest pain currently resolved. (3) Elevated troponin: Code(s): R79.89 - Other specified abnormal findings of blood chemistry Status: Acute Assessment and Plan: Likely secondary to the patient's SVT. Due to demand ischemia Cardiology has been consulted. Subjective Date/time seen: 07/17/19 17:50 Patient is 69-year-old female with history of severe COPD and recurrent SVT patient presented emergency department with shortness of breath SVT with a rate of 188 confirm on the EKG patient was given adenosine 6 mg IV which did help and her rate trended down, also patient magnesium was quite low and supplemented patient is seen by in file operator increase held diltiazem 90 mg t.i.d. and magnesium F[place] mg b.i.d., currently patient clinically stable rate is controlled, any chest pain shortness of breath palpitation fever or chills, patient is seen by in file operator further recommendation to follow, patient will benefit consulting mainframe programmer Review of Systems Review of Systems: All systems reviewed & are unremarkable except as noted in HPI and below Exam Narrative: Exam Narrative: Appears chronically ill older than her age Const: General: comfortable and no acute distress HENMT: General nose exam: Normal nares present Mouth: Yes moist mucous membranes Eyes: General: appearance normal, both eyes and all related structures Sclera: sclerae normal Neck: Neck: supple Resp: Other: Bilateral poor air entry with rhonchi Cardio: Rate: regular rate Rhythm: regular rhythm Skin: General skin exam: normal color Neuro: Speech: normal speech Sensory Exam: normal sensation Extrem: General: normal to inspection Psych: Affect: Anxious affect present Objective Data Vital Signs Vital Signs: Vital Signs - 24 hr 07/16/19 18:42 07/16/19 19:08 07/16/19 19:09 Temperature 98.3 F 97.1 F L Pulse Rate 188 H 95 88 Respiratory Rate 22 H 21 H Blood Pressure 144/115 H 150/73 H Pulse Oximetry 98 100 100 07/16/19 20:09 07/16/19 20:26 07/16/19 21:00 Temperature 97.9 F 97.4 F L Pulse Rate 84 82 84 Respiratory Rate 16 20 18 Blood Pressure 152/74 H 152/74 H 150/71 H Pulse Oximetry 100 97 99 07/16/19 21:26 07/16/19 21:45 07/16/19 22:55 Temperature Pulse Rate 85 85 81 Respiratory Rate Blood Pressure Pulse Oximetry 99 07/17/19 00:00 07/17/19 01:51 07/17/19 02:23 Temperature 97 F L Pulse Rate 78 79 79 Respiratory Rate 22 H Blood Pressure 158/80 H Pulse Oximetry 100 99 07/17/19 03:58
[2019-07-17] MEDS: DILTIAZEM HCL 30 MG TABLET 90 MG PO (21:19)
[2019-07-17 21:30] LABS: Glucose Point of Care 140 (65-105)
[2019-07-17] MEDS: ACETAMINOPHEN 500 MG TABLET 650 MG PO (22:49)
[2019-07-18] VITALS (18 sets, daily range): BP systolic 107–188; BP diastolic 52–84; PULSE 55–77; RESP 18–22; TEMP 35.7–36.6; O2SAT 94–100
[2019-07-18 05:06] LABS: Blood Urea Nitrogen 19 mg/dL (7-17); Calcium 9.7 mg/dL (8.4-10.2); Carbon Dioxide 39 mmol/L (22-30); Chloride 94 mmol/L (98-107); Estimated CRCL calculation 48 ml/min; Estimated Glomerular Filt Rate > 60; Glucose 174 mg/dL (65-105); Magnesium 1.7 mg/dL (1.6-2.3); Potassium 4.4 mmol/L (3.4-5.0); Sodium 137 mmol/L (137-145)
[2019-07-18] MEDS: DILTIAZEM HCL 30 MG TABLET 90 MG PO ×3 (06:00→21:14)
[2019-07-18 09:03] LABS: Glucose Point of Care 175 (65-105)
[2019-07-18] MEDS: ASPIRIN 81 MG CHEWABLE TABLET PO (10:13)
[2019-07-18] MEDS: ENOXAPARIN 40 MG/0.4 ML SYRINGE SUB-Q (10:13)
[2019-07-18] MEDS: FUROSEMIDE 40 MG TABLET PO (10:14)
[2019-07-18] MEDS: LOSARTAN POTASSIUM 25 MG TABLET 50 MG PO (10:14)
[2019-07-18] MEDS: LEFLUNOMIDE 20 MG TABLET PO (10:14)
[2019-07-18] MEDS: ATORVASTATIN 10 MG TABLET PO (10:14)
[2019-07-18] MEDS: METOPROLOL SUCCINATE EXT REL 100 MG TABCR PO (10:15)
[2019-07-18] MEDS: MAGNESIUM OXIDE 400 MG TABLET PO (10:15)
[2019-07-18] MEDS: metFORMIN HCL XR 500 MG TAB.SR.24H PO ×2 (10:15→17:01)
[2019-07-18] MEDS: METOPROLOL SUCCINATE EXT REL 50 MG TABCR PO (10:16)
[2019-07-18] MEDS: NORTRIPTYLINE HCL 25 MG CAPSULE PO (10:16)
[2019-07-18] MEDS: POTASSIUM CHLORIDE 20 MEQ TABLET.ER PO (10:17)
[2019-07-18] MEDS: ROFLUMILAST 500 MCG TABLET PO (10:17)
--- NOTE | 2019-07-18 11:48 | PM.PNCARD ---
Progress Note: A&P Assessment and Plan (1) SVT (supraventricular tachycardia): Code(s): I47.1 - Supraventricular tachycardia Status: Acute Assessment and Plan: Recurrence. Continue diltiazem and metoprolol. Follow up with the EP. Continue other medical regimen without change. (2) Chest pain: Qualifiers: Chest pain type: unspecified Qualified Code(s): R07.9 - Chest pain, unspecified Code(s): R07.9 - Chest pain, unspecified Status: Acute Assessment and Plan: Related to SVT +/-underlying CAD. Will keep NPO after midnight for a Lexiscan myocardial perfusion study in the morning given her ongoing symptoms (3) CAD (coronary artery disease): Qualifiers: Coronary Disease-Associated Artery/Lesion type: [place] artery [place] vs. transplanted heart: [place] heart Associated angina: without angina Qualified Code(s): I25.10 - Atherosclerotic heart disease of [place] coronary artery without angina pectoris Code(s): I25.10 - Atherosclerotic heart disease of [place] coronary artery without angina pectoris Status: Acute Assessment and Plan: Stable. Continue statin, beta-samir, aspirin, ARB (4) Elevated troponin: Code(s): R79.89 - Other specified abnormal findings of blood chemistry Status: Acute Assessment and Plan: Stress test tomorrow (5) COPD (chronic obstructive pulmonary disease): Code(s): J44.9 - Chronic obstructive pulmonary disease, unspecified Status: Chronic Assessment and Plan: Oxygen-dependent (6) Hypomagnesemia: Code(s): E83.42 - Hypomagnesemia Status: Acute Subjective Date/time seen: 07/18/19 11:48 Interval history: Chief complaint: SVT Date of service 07/18/2019: She still does not feel very well. Heart rate is controlled but still has some nausea and some intermittent chest discomfort. Blood pressures have been high. No unusual shortness of breath Review of Systems Review of Systems: All systems reviewed & are unremarkable except as noted in HPI and below Constitutional: Constitutional: Denies fatigue and Denies headache(s) Eyes: Eyes: Denies blurry vision ENT: Reports Normal hearing present, Denies headache(s), Denies lip swelling, Denies epistaxis and Denies neck pain Cardiovascular: Cardiovascular: Reports chest pain and Reports dyspnea Respiratory: Respiratory: Reports dyspnea Gastrointestinal: Gastrointestinal: Denies abdominal pain Genitourinary: Genitourinary: Denies hematuria and Denies nocturia Musculoskeletal: Musculoskeletal: Denies neck pain and Denies numbness Integumentary/Breasts: Skin/Breast: Denies dry skin Neurologic: Reports Normal hearing present, Denies confusion, Denies headache(s) and Denies numbness Psychiatric: Psychiatric: Denies anxiety and Denies confusion Endocrine: Endocrine: Denies fatigue and Denies flushing Hematologic/Lymphatic: Hematologic/Lymphatic: Denies easy bleeding and Denies easy bruising Allergic/Immunologic: Allergic/Immunologic: Denies lip swelling Exam Narrative: Exam Narrative: Alert and oriented Const: General: no acute distress; No in distress or confusion Orientation/consciousness: No confusion HENMT: General nose exam: Normal nares present Other: Nasal cannula in place Eyes: Sclera: sclerae normal Neck: Neck: not supple and no JVD Chest: Other: No chest wall pain to palpation Resp: Auscultation: diminished lung sounds Cardio: Rate: regular rate Rhythm: regular rhythm Skin: General skin exam: normal color Neuro: General: No confusion Cranial nerves: Yes Normal hearing present Cognition (Neuro): normal cognition Speech: normal speech Extrem: General: normal to inspection, no edema and no pedal edema Psych: Mental Status: mental status grossly normal Objective Data Vital Signs Vital Signs: Vital Signs - 24 hr 07/17/19 12:00 07/17/19 14:00 07/17/19 16:00 Temperature 36.0 C
[2019-07-18 13:26] LABS: Glucose Point of Care 178 (65-105)
[2019-07-18] MEDS: ONDANSETRON INJ 4 MG/2 ML VIAL IV PUSH (15:08)
--- NOTE | 2019-07-18 15:25 | ECG_ITS ---
Measurements Intervals [place] Rate: 76 P: 65 [place]: 144 QRS: -30 QRSD: 93 T: 40 QT: 393 QTc: 444 Interpretive Statements SINUS RHYTHM POSSIBLE LEFT ATRIAL ENLARGEMENT DELAYED PRECORDIAL R/S TRANSITION BORDERLINE ST ABNORMALITY- LATERAL LEADS BORDERLINE ECG Electronically Signed On 07-19-2019 7:14:57 CDT by Joshua Bennett D.O.
[2019-07-18 16:26] LABS: Troponin I 0.094 ng/mL (0.000-0.034)
--- NOTE | 2019-07-18 16:27 | P.PNIM_ITS ---
Progress Note: A&P Assessment and Plan (1) SVT (supraventricular tachycardia): Code(s): I47.1 - Supraventricular tachycardia Status: Acute Assessment and Plan: * Will replace patient's magnesium with 3 gram magnesium sulfate rider. * Patient is being monitored in the IMU on telemetry. * Cardiology has been consulted. * Will continue patient's home leflunomide, Cardizem, and metoprolol. * Cardiology has been consulted for further recommendations given the patient's recurrent SVT. 07/18/19 16:27 Patient is 69-year-old female with history of severe COPD and recurrent SVT patient presented emergency department with shortness of breath SVT with a rate of 188 confirm on the EKG patient was given adenosine 6 mg IV which did help and her rate trended down, also patient magnesium was quite low and supplemented patient is seen by sales project administrator increase held diltiazem 90 mg t.i.d. and magnesium 400 mg b.i.d., currently patient clinically stable rate is controlled, any chest pain shortness of breath palpitation fever or chills, patient is seen by sales project administrator further recommendation to follow, patient will benefit consulting payloader operator, today patient's heart rate is controlled however patient complains of diaphoresis and somewhat chest pain discussed with sales project administrator to further evaluate patient will have Lexiscan tomorrow and further recommendation to follow (2) Chest pain: Qualifiers: Chest pain type: unspecified Qualified Code(s): R07.9 - Chest pain, unspecified Code(s): R07.9 - Chest pain, unspecified Status: Acute Assessment and Plan: * Likely due to the patient's SVT. * Chest pain currently resolved. * Plan is above (3) Elevated troponin: Code(s): R79.89 - Other specified abnormal findings of blood chemistry Status: Acute Assessment and Plan: * Likely secondary to the patient's SVT. Due to demand ischemia * Cardiology has been consulted. Subjective Date/time seen: 07/18/19 16:27 Patient is 69-year-old female with history of severe COPD and recurrent SVT patient presented emergency department with shortness of breath SVT with a rate of 188 confirm on the EKG patient was given adenosine 6 mg IV which did help and her rate trended down, also patient magnesium was quite low and supplemented patient is seen by sales project administrator increase held diltiazem 90 mg t.i.d. and magnesium 400 mg b.i.d., currently patient clinically stable rate is controlled, any chest pain shortness of breath palpitation fever or chills, patient is seen by sales project administrator further recommendation to follow, patient will benefit consulting payloader operator, today patient's heart rate is controlled however patient complains of diaphoresis and somewhat chest pain discussed with sales project administrator to further evaluate patient will have Lexiscan tomorrow and further recommendation to follow Review of Systems Review of Systems: All systems reviewed & are unremarkable except as noted in HPI and below Exam Narrative: Exam Narrative: Appears chronically ill older than her age Const: General: comfortable and no acute distress HENMT: General nose exam: Normal nares present Mouth: Yes moist mucous membranes Eyes: General: appearance normal, both eyes and all related structures Sclera: sclerae normal Neck: Neck: supple Resp: Other: Bilateral poor air entry with rhonchi Cardio: Rate: regular rate Rhythm: regular rhythm Skin: General skin exam: normal color Neuro: Speech: normal speech Sensory Exam: normal sensation
--- NOTE | 2019-07-18 16:27 | PM.IMPN ---
Progress Note: A&P Assessment and Plan (1) SVT (supraventricular tachycardia): Code(s): I47.1 - Supraventricular tachycardia Status: Acute Assessment and Plan: Will replace patient's magnesium with 3 gram magnesium sulfate rider. Patient is being monitored in the IMU on telemetry. Cardiology has been consulted. Will continue patient's home leflunomide, Cardizem, and metoprolol. Cardiology has been consulted for further recommendations given the patient's recurrent SVT. 07/18/19 16:27 Patient is 69-year-old female with history of severe COPD and recurrent SVT patient presented emergency department with shortness of breath SVT with a rate of 188 confirm on the EKG patient was given adenosine 6 mg IV which did help and her rate trended down, also patient magnesium was quite low and supplemented patient is seen by research management associate increase held diltiazem 90 mg t.i.d. and magnesium 400 mg b.i.d., currently patient clinically stable rate is controlled, any chest pain shortness of breath palpitation fever or chills, patient is seen by research management associate further recommendation to follow, patient will benefit consulting reservationist, today patient's heart rate is controlled however patient complains of diaphoresis and somewhat chest pain discussed with research management associate to further evaluate patient will have Lexiscan tomorrow and further recommendation to follow (2) Chest pain: Qualifiers: Chest pain type: unspecified Qualified Code(s): R07.9 - Chest pain, unspecified Code(s): R07.9 - Chest pain, unspecified Status: Acute Assessment and Plan: Likely due to the patient's SVT. Chest pain currently resolved. Plan is above (3) Elevated troponin: Code(s): R79.89 - Other specified abnormal findings of blood chemistry Status: Acute Assessment and Plan: Likely secondary to the patient's SVT. Due to demand ischemia Cardiology has been consulted. Subjective Date/time seen: 07/18/19 16:27 Patient is 69-year-old female with history of severe COPD and recurrent SVT patient presented emergency department with shortness of breath SVT with a rate of 188 confirm on the EKG patient was given adenosine 6 mg IV which did help and her rate trended down, also patient magnesium was quite low and supplemented patient is seen by research management associate increase held diltiazem 90 mg t.i.d. and magnesium 400 mg b.i.d., currently patient clinically stable rate is controlled, any chest pain shortness of breath palpitation fever or chills, patient is seen by research management associate further recommendation to follow, patient will benefit consulting reservationist, today patient's heart rate is controlled however patient complains of diaphoresis and somewhat chest pain discussed with research management associate to further evaluate patient will have Lexiscan tomorrow and further recommendation to follow Review of Systems Review of Systems: All systems reviewed & are unremarkable except as noted in HPI and below Exam Narrative: Exam Narrative: Appears chronically ill older than her age Const: General: comfortable and no acute distress HENMT: General nose exam: Normal nares present Mouth: Yes moist mucous membranes Eyes: General: appearance normal, both eyes and all related structures Sclera: sclerae normal Neck: Neck: supple Resp: Other: Bilateral poor air entry with rhonchi Cardio: Rate: regular rate Rhythm: regular rhythm Skin: General skin exam: normal color Neuro: Speech: normal speech Sensory Exam: normal sensation Extrem: General: normal to inspection Psych: Affect: Anxious affect present Objective Data Vital Signs Vital Signs: Vital Signs - 24 hr 07/17/19 18:00 07/17/19 20:00 07/17/19 21:07 Temperature 97 F L Pulse Rate 83 81 Respiratory Rate 22 H Blood Pressure 184/95 H Pulse Oximetry 98 98 07/17/19 22:00 07/17/19 22:06 07/18/19 00:00 Temperature 97 F L Pulse Rate 71 77 63 Respi
[2019-07-18 16:50] LABS: Glucose Point of Care 206 (65-105)
[2019-07-18 20:43] LABS: Glucose Point of Care 162 (65-105)
[2019-07-18] MEDS: SERTRALINE HCL 50 MG TABLET PO (21:14)
[2019-07-18] MEDS: ACETAMINOPHEN 325 MG TABLET 650 MG PO (21:32)
[2019-07-19] VITALS (30 sets, daily range): BP systolic 108–186; BP diastolic 53–85; PULSE 57–105; RESP 12–23; TEMP 35.8–36.7; O2SAT 93–100
[2019-07-19] MEDS: ACETAMINOPHEN 325 MG TABLET 650 MG PO (04:50)
[2019-07-19] MEDS: DILTIAZEM HCL 30 MG TABLET 90 MG PO ×3 (04:50→21:13)
[2019-07-19 05:22] LABS: Blood Urea Nitrogen 26 mg/dL (7-17); Calcium 9.9 mg/dL (8.4-10.2); Carbon Dioxide 37 mmol/L (22-30); Chloride 90 mmol/L (98-107); Estimated CRCL calculation 39 ml/min; Estimated Glomerular Filt Rate 55; Glucose 230 mg/dL (65-105); Magnesium 1.5 mg/dL (1.6-2.3); Potassium 4.3 mmol/L (3.4-5.0); Sodium 133 mmol/L (137-145)
--- NOTE | 2019-07-19 08:03 | WPDHPUPDATE1 ---
History and Physical Update Update Date/Time: 07/19/19 11:03 History and Physical has been reviewed, including an updated exam of the patient. There are NO changes in the patient's condition. Risks, benefits, and alternatives have been discussed and questions answered. Patient agrees to proceed with procedure.
[2019-07-19 08:27] LABS: Glucose Point of Care 207 (65-105)
[2019-07-19] MEDS: POTASSIUM CHLORIDE 20 MEQ TABLET.ER PO (08:42)
[2019-07-19] MEDS: ROFLUMILAST 500 MCG TABLET PO (08:42)
[2019-07-19] MEDS: NORTRIPTYLINE HCL 25 MG CAPSULE PO (08:42)
[2019-07-19] MEDS: metFORMIN HCL XR 500 MG TAB.SR.24H PO (08:42)
[2019-07-19] MEDS: ATORVASTATIN 10 MG TABLET PO (08:43)
[2019-07-19] MEDS: LEFLUNOMIDE 20 MG TABLET PO (08:43)
[2019-07-19] MEDS: MAGNESIUM OXIDE 400 MG TABLET PO (08:44)
[2019-07-19] MEDS: ASPIRIN 81 MG CHEWABLE TABLET PO (08:44)
--- NOTE | 2019-07-19 10:51 | WPDCARDPROC ---
Cardiac Cath Procedure Note Date of procedure:: 07/19/19 Performing physician:: Marine Willis MD Indication:: chest pain date of service 07/19/2019 Brief clinical history:: patient is a 69-year-old female patient of mine who has a history of paroxysmal supraventricular tachycardia, coronary artery disease, COPD, chronic hypoxic respiratory failure who presented to the hospital because of chest pain. Patient states that she has been having intermittent episodes of chest pain and squeezing a couple times per week. She states that this is really nothing new but usually her symptoms. After she sits down or lays down but yesterday they did not. She did check her pulse oxygenation and her heart rate was over 200 and therefore she came to the hospital. she does have passive multiple coronary artery stents in the past and then a troponins minimally elevated. Due to multiple risk factors for CAD and due to chest pain she was brought into the outside laborer to define coronary anatomy. Procedure Procedure performed:: 1-Moderate sedation that started at 9:47 a.m.and ended at 10:43 a.m. total duration 56 minutes using 1mg of Versed and 25mcg fentanyl. The registered nurse was Brandon robertson. 2-Selective left and right coronary angiogram. 3-Left heart catheterization with measurement of LVEDP and measurement of gradient across aortic valve. 4- left common femoral arterial angiogram. 5- deployment drug-eluting stent Xience luz elena 3 x 15 to the distal RCA reducing stenosis from 90% to 0% and TIERNEY flow 3 before and after intervention. 6- balloon angioplasty of an accessory left PDA Reducing stenosis from 90% to 10% and TIERNEY flow 3 before and after intervention. We did not want to deliver stent because of tortuosity. we had difficulty passing just the balloon to that area. Sedation/Medication given:: Moderate sedation. Access site:: left common femoral artery. Estimated blood loss:: 10cc Procedure note:: After informed consent patient was brought in to outside laborer with the was draped and prepped in usual manner. Moderate sedation was given and the left groin was infiltrated using 1% lidocaine. Five Czech sheath was obtained using micropuncture needle and the modified Seldinger technique. Selective left coronary angiogram was done using JL4 catheter with the tip of the catheter placed in the left main coronary artery. Selective right coronary angiogram was done using JR4 catheter with the tip of the catheter placed to the right coronary artery. After that 5 [place] pigtail catheter was advanced across the aortic valve into the left ventricle with measurement of LVEDP and measurement of gradient across aortic valve. left common femoral arterial angiogram was done. after that the left femoral sheath was upgraded to 6 Czech sheath. Guide catheter JR4 was advanced engaging the RCA. Coronary luge wire 0.014 was advanced to distal RCA. Subsequently balloon angioplasty of distal RCA was done using [employer]omerics emerge 3 by with 2 inflations done and they 7 atmospheres 25 seconds each. Then we attempted to deliver the stent both a due to poor guide support and because the stent was hanging on the end the mid RCA stent we could not deliver and then we had to use a GuideLiner and with some difficulty we managed to deliver the stent to the distal RCA with deployment done under nominal pressure for 20 seconds. after that 6 Czech guide catheter CLS 3.5 was advanced in the left main. coronary luge wire was advanced to the distal end of the accessory left PDA. then after that Predikt emerge balloon 2.5 x 12 was inflated with 2 inflations each for 20 seconds. excellent result. Findings:: 1- left coronary artery is a large artery that divides into large LAD, large circumflex artery. Distal left main 10%. 2- left anterior descending artery is a large artery that runs and wraps around the apex. Proximal portion 20-30% then there is a patent stent proximally. The LAD gives
--- NOTE | 2019-07-19 11:03 | WPDMODSED ---
Moderate Sedation Note-Pt Data Patient Data Allergies Allergy/AdvReac Type Severity Reaction Status Date / Time morphine Allergy Mild Itching Verified 05/27/19 18:32 pregabalin Allergy Unknown Itching Verified 05/27/19 18:32 Home Medications Medication Instructions Recorded Confirmed Type atorvastatin 10 mg PO DAILY 03/21/19 07/16/19 History diltiazem HCl 60 mg PO TID 03/21/19 07/16/19 History furosemide 40 mg PO DAILY 03/21/19 07/16/19 History leflunomide 20 mg PO DAILY 03/21/19 07/16/19 History losartan 25 mg PO DAILY 03/21/19 07/16/19 History magnesium oxide 400 mg PO DAILY 03/21/19 07/16/19 History metformin 500 mg PO BID 03/21/19 07/16/19 History metoprolol succinate 100 mg PO DAILY 03/21/19 07/16/19 History nortriptyline 25 mg PO DAILY 03/21/19 07/16/19 History potassium chloride 20 meq PO DAILY 03/21/19 07/16/19 History sertraline 50 mg PO HS 03/21/19 07/16/19 History levalbuterol tartrate 2 inhalation INHALATION Q6H #15 gm 03/23/19 07/16/19 Rx metoprolol succinate 50 mg PO DAILY #30 each 03/23/19 07/16/19 Rx cefdinir 300 mg PO Q12H 5 Days #10 cap 05/27/19 07/16/19 Rx roflumilast 500 mcg tablet 500 mcg PO DAILY 06/20/19 07/16/19 History umeclidinium 62.5 mcg-vilanterol 1 inhalation INHALATION DAILY 06/20/19 07/16/19 History 25 mcg/actuation powdr for inhalation levalbuterol HCl 1.25 mg INHALATION Q4H PRN 07/16/19 07/16/19 History Current Medications: Active Medications Acetaminophen (Tylenol Tablet) 650 mg PO Q6H PRN PRN Reason: PAIN 1-3 Last Admin: 07/19/19 04:50 Dose: 650 mg Documented by: Aspirin (Aspirin Chewable) 81 mg PO DAILY@0800 [facility] Last Admin: 07/19/19 08:44 Dose: 81 mg Documented by: Atorvastatin Calcium (Lipitor) 10 mg PO DAILY [facility] Last Admin: 07/19/19 08:43 Dose: 10 mg Documented by: Diltiazem HCl (Cardizem Tab) 90 mg PO Q8HR [facility] Last Admin: 07/19/19 04:50 Dose: 90 mg Documented by: Enoxaparin Sodium (Lovenox) 40 mg SUB-Q DAILY [facility] Last Admin: 07/18/19 10:13 Dose: 40 mg Documented by: Furosemide (Lasix Tablet) 40 mg PO DAILY [facility] Last Admin: 07/18/19 10:14 Dose: 40 mg Documented by: Hydralazine HCl (Apresoline Hcl Inj) 10 mg IV PUSH Q4H PRN PRN Reason: Blood Pressure - High Leflunomide (Leflunomide) 20 mg PO DAILY [facility] Last Admin: 07/19/19 08:43 Dose: 20 mg Documented by: Levalbuterol HCl (Xopenex 1.25 Mg/0.5 Ml) 1.25 mg INHALATION Q4H PRN PRN Reason: Shortness Of Breath Or Wheezing Losartan Potassium (Cozaar) 50 mg PO DAILY [facility] Last Admin: 07/18/19 10:14 Dose: 50 mg Documented by: Magnesium Oxide (Mag-Ox) 400 mg PO DAILY [facility] Last Admin: 07/19/19 08:44 Dose: 400 mg Documented by: Metformin HCl (Glucophage Xr) 500 mg PO BID [facility] Last Admin: 07/19/19 08:42 Dose: 500 mg Documented by: Metoprolol Succinate (Toprol Xl) 100 mg PO DAILY [facility] Last Admin: 07/18/19 10:15 Dose: 100 mg Documented by: Metoprolol Succinate (Toprol Xl) 50 mg PO DAILY [facility] Last Admin: 07/18/19 10:16 Dose: 50 mg Documented by: Nortriptyline HCl (Pamelor) 25 mg PO DAILY [facility] Last Admin: 07/19/19 08:42 Dose: 25 mg Documented by: Ondansetron HCl (Zofran Inj) 4 mg IV PUSH Q6H PRN PRN Reason: Nausea And Vomiting Last Admin: 07/18/19 15:08 Dose: 4 mg Documented by: Potassium Chloride (Kcl Tablet) 20 meq PO DAILY [facility] Last Admin: 07/19/19 08:42 Dose: 20 meq Documented by: Roflumilast (Daliresp) 500 mcg PO DAILY [facility] Last Admin: 07/19/19 08:42 Dose: 500 mcg Documented by: Sertraline HCl (Zoloft) 50 mg PO HS [facility] Last Admin: 07/18/19 21:14 Dose: 50 mg Documented by: Sedation/Anesthesia: No previous sedation/anesthesia problems (including family history). [facility] Past Medical History Medical History A-fib With an ablation and paroxysmal Anxiety CAD (coronary artery disease) s/p 3stents Non STEMI May 2017 Chronic anemia Chronic respiratory failure with hypoxia Chronically on oxygen at
[2019-07-19] MEDS: METOPROLOL SUCCINATE EXT REL 50 MG TABCR PO (11:27)
[2019-07-19] MEDS: METOPROLOL SUCCINATE EXT REL 100 MG TABCR PO (11:28)
[2019-07-19] MEDS: MAGNESIUM SULFATE 3GM/D5W100ML 3 GM/100 ML BAG IVPB (11:30)
[2019-07-19] MEDS: LOSARTAN POTASSIUM 25 MG TABLET 50 MG PO (11:53)
[2019-07-19] MEDS: ONDANSETRON INJ 4 MG/2 ML VIAL IV PUSH ×3 (12:29→21:13)
[2019-07-19] MEDS: hydrALAZINE HCL 20 MG/ML VIAL 10 MG IV PUSH (14:45)
[2019-07-19 16:47] LABS: Glucose Point of Care 184 (65-105)
--- NOTE | 2019-07-19 16:56 | PM.IMPN ---
Progress Note: A&P Assessment and Plan (1) SVT (supraventricular tachycardia): Code(s): I47.1 - Supraventricular tachycardia Status: Acute Assessment and Plan: Patient is 69-year-old female with history of severe COPD and recurrent SVT patient presented emergency department with shortness of breath SVT with a rate of 188 confirm on the EKG patient was given adenosine 6 mg IV which did help and her rate trended down, also patient magnesium was quite low and supplemented patient is seen by customer service driver increase held diltiazem 90 mg t.i.d. and magnesium 400 mg b.i.d., currently patient clinically stable rate is controlled. Pt going for heart cath today. Hopeful discharge tomorrow. (2) Chest pain: Qualifiers: Chest pain type: unspecified Qualified Code(s): R07.9 - Chest pain, unspecified Code(s): R07.9 - Chest pain, unspecified Status: Acute Assessment and Plan: Likely due to the patient's SVT. Chest pain is resolved (3) Elevated troponin: Code(s): R79.89 - Other specified abnormal findings of blood chemistry Status: Acute Assessment and Plan: Likely secondary to the patient's SVT. Pt had heart cath today with stenting Conclusion:: 1- successful stenting of distal RCA using 3 x 15 stent. 2- successful balloon angioplasty of proximal portion of left PDA. Pt to continue ASA and brinilta Hopeful discharge tomorrow Subjective Date/time seen: 07/19/19 16:56 Interval history: 9-year-old female with history of severe COPD and recurrent SVT patient presented emergency department with shortness of breath SVT with a rate of 188 confirm on the EKG patient was given adenosine 6 mg IV which did help and her rate trended down, also patient magnesium was quite low and supplemented patient is seen by customer service driver increase held diltiazem 90 mg t.i.d. and magnesium 400 mg b.i.d., currently patient clinically stable rate is controlled. Pt going to have heart cath today under cardiology. Review of Systems Review of Systems: All systems reviewed & are unremarkable except as noted in HPI and below Exam Narrative: Exam Narrative: Appears chronically ill older than her age Const: General: comfortable and no acute distress Cardio: Rate: regular rate Rhythm: regular rhythm Neuro: Speech: normal speech Sensory Exam: normal sensation Extrem: General: normal to inspection Psych: Affect: Anxious affect present Objective Data Vital Signs Vital Signs: Vital Signs - 24 hr 07/18/19 18:00 07/18/19 19:25 07/18/19 20:00 Temperature 36.6 C Pulse Rate 60 55 L 60 Pulse Rate [Bilateral Pedal (Dorsalis Pedis)] Respiratory Rate 18 Blood Pressure 107/52 L Pulse Oximetry 98 07/18/19 21:30 07/18/19 21:40 07/18/19 22:00 Temperature Pulse Rate 58 L 56 L 77 Pulse Rate [Bilateral Pedal (Dorsalis Pedis)] Respiratory Rate 18 Blood Pressure Pulse Oximetry 100 98 07/19/19 00:00 07/19/19 02:00 07/19/19 04:00 Temperature 36.7 C 36.6 C Pulse Rate 68 57 L 80 Pulse Rate [Bilateral Pedal (Dorsalis Pedis)] Respiratory Rate 18 18 Blood Pressure 111/53 L 108/65 Pulse Oximetry 97 93 07/19/19 06:00 07/19/19 07:46 07/19/19 08:00 Temperature 36.0 C L Pulse Rate 70 68 65 Pulse Rate [Bilateral Pedal (Dorsalis Pedis)] Respiratory Rate 12 Blood Pressure 122/63 Pulse Oximetry 96 07/19/19 09:14 07/19/19 11:03 07/19/19 11:15 Temperature Pulse Rate 58 L 63 62 Pulse Rate [Bilateral Pedal (Dorsalis Pedis)] 62 Respiratory Rate 18 17 23 H Blood Pressure 155/74 H 166/72 H Pulse Oximetry 98 100 100 07/19/19 11:22 07/19/19 11:27 07/19/19 11:28 Temperature Pulse Rate 60 60 Pulse Rate [Bilateral Pedal (Dorsalis Pedis)] 63 Respiratory Rate Blood Pressure Pulse Oximetry 07/19/19 11:30 07/19/19 11:45 07/19/19 12:00 Temperature Pulse Rate 62 66 65 Pulse Rate [Bilateral Pedal (Dorsalis Pedis)]
[2019-07-19] MEDS: TICAGRELOR 90 MG TABLET PO (20:04)
[2019-07-19] MEDS: SERTRALINE HCL 50 MG TABLET PO (20:06)
[2019-07-19 20:09] LABS: Glucose Point of Care 205 (65-105)
[2019-07-20] VITALS (12 sets, daily range): BP systolic 143–170; BP diastolic 66–73; PULSE 58–87; RESP 18–20; TEMP 35.7–36.4; O2SAT 95–100
[2019-07-20] MEDS: ACETAMINOPHEN 325 MG TABLET 650 MG PO ×2 (02:20→08:09)
[2019-07-20 05:16] LABS: Blood Urea Nitrogen 28 mg/dL (7-17); Calcium 9.1 mg/dL (8.4-10.2); Carbon Dioxide 28 mmol/L (22-30); Chloride 96 mmol/L (98-107); Estimated CRCL calculation 39 ml/min; Estimated Glomerular Filt Rate 55; Glucose 192 mg/dL (65-105); Magnesium 2.1 mg/dL (1.6-2.3); Potassium 4.2 mmol/L (3.4-5.0); Sodium 132 mmol/L (137-145)
[2019-07-20] MEDS: ONDANSETRON INJ 4 MG/2 ML VIAL IV PUSH (05:37)
[2019-07-20] MEDS: DILTIAZEM HCL 30 MG TABLET 90 MG PO (05:38)
--- NOTE | 2019-07-20 07:00 | ECG_ITS ---
Measurements Intervals [place] Rate: 64 P: 69 OR: 165 QRS: -30 QRSD: 90 T: 68 QT: 426 QTc: 440 Interpretive Statements SINUS RHYTHM WITH SINUS ARRHYTHMIA POSSIBLE LEFT ATRIAL ENLARGEMENT BORDERLINE ST ABNORMALITY- LATERAL LEADS BORDERLINE ECG Electronically Signed On 07-20-2019 11:05:50 CDT by Joshua Bennett D.O.
[2019-07-20 07:56] LABS: Glucose Point of Care 177 (65-105)
[2019-07-20] MEDS: METOPROLOL SUCCINATE EXT REL 50 MG TABCR PO (08:08)
[2019-07-20] MEDS: TICAGRELOR 90 MG TABLET PO (08:08)
[2019-07-20] MEDS: ENOXAPARIN 40 MG/0.4 ML SYRINGE SUB-Q (08:10)
[2019-07-20] MEDS: MAGNESIUM OXIDE 400 MG TABLET PO (08:11)
[2019-07-20] MEDS: ATORVASTATIN 10 MG TABLET PO (08:11)
[2019-07-20] MEDS: NORTRIPTYLINE HCL 25 MG CAPSULE PO (08:11)
[2019-07-20] MEDS: LEFLUNOMIDE 20 MG TABLET PO (08:11)
[2019-07-20] MEDS: ASPIRIN 81 MG CHEWABLE TABLET PO (08:12)
[2019-07-20] MEDS: FUROSEMIDE 40 MG TABLET PO (08:12)
[2019-07-20] MEDS: POTASSIUM CHLORIDE 20 MEQ TABLET.ER PO (08:12)
[2019-07-20] MEDS: METOPROLOL SUCCINATE EXT REL 100 MG TABCR PO (08:13)
[2019-07-20] MEDS: ROFLUMILAST 500 MCG TABLET PO (08:13)
[2019-07-20] MEDS: LOSARTAN POTASSIUM 25 MG TABLET 50 MG PO (08:13)
--- NOTE | 2019-07-20 10:35 | PM.PNCARD ---
Progress Note: A&P Assessment and Plan (1) SVT (supraventricular tachycardia): Code(s): I47.1 - Supraventricular tachycardia Status: Acute Assessment and Plan: Recurrence. Continue diltiazem and metoprolol. Follow up with the EP as scheduled on August 02 (2) Chest pain: Qualifiers: Chest pain type: unspecified Qualified Code(s): R07.9 - Chest pain, unspecified Code(s): R07.9 - Chest pain, unspecified Status: Acute Assessment and Plan: Related to SVT +/-underlying CAD. Cardiac catheterization 07/19/2019: Left coronary artery is a large artery that divides into large LAD, large circumflex artery. Distal left main 10%. Left anterior descending artery is a large artery that runs and wraps around the apex. Proximal portion 20-30% then there is a patent stent proximally. The LAD gives rise to several small diagonal branches with minimal irregularities. Left circumflex artery is a large artery and codominant And has proximal 30% to 40% stenosis. In the mid segment there is a patent stent. In the mid segment it gives rise to medium-sized OM 1 branch that looks unremarkable and then a large left PDA with minimal irregularities. there is an accessory left PDA as well that has proximal 90%. Right coronary artery is Large artery and codominant and has distal 90% stenosis. LVEDP was 5 mmhg and no gradient across aortic valve. Opening arterial pressure was 123/42 and closing pressure was 142/50 Left femoral artery angiogram shows mild plaquing of the right common femoral artery 30%. She proceeded on to intervention with successful stenting of distal RCA using 3 x 15 stent and successful balloon angioplasty of proximal portion of left PDA. No chest discomfort this morning. Left groin site without swelling or bleeding. No femoral bruit. Distal pulses diminished but present. Continue aspirin, atorvastatin, Brilinta and Metoprolol succinate. Losartan was increased to 50 mg daily. BMP as an outpatient (3) CAD (coronary artery disease): Qualifiers: Coronary Disease-Associated Artery/Lesion type: [place] artery [place] vs. transplanted heart: [place] heart Associated angina: without angina Qualified Code(s): I25.10 - Atherosclerotic heart disease of [place] coronary artery without angina pectoris Code(s): I25.10 - Atherosclerotic heart disease of [place] coronary artery without angina pectoris Status: Acute Assessment and Plan: As above (4) Elevated troponin: Code(s): R79.89 - Other specified abnormal findings of blood chemistry Status: Acute Assessment and Plan: Stress test tomorrow (5) COPD (chronic obstructive pulmonary disease): Code(s): J44.9 - Chronic obstructive pulmonary disease, unspecified Status: Chronic Assessment and Plan: Oxygen-dependent (6) Hypomagnesemia: Code(s): E83.42 - Hypomagnesemia Status: Acute Assessment and Plan: Continue supplementation. Will check magnesium level with BMP Additional Plan OK to discharge from cardiac standpoint See discharge instructions for follow-up Plan discussed Dr. Farr [id number] 07/20/2019 Subjective Date/time seen: 07/20/19 10:35 Interval history: Follow-up for: SVT, chest pain, coronary artery disease status post stent to right coronary artery and POBA to LPDA 07/19/2019 Date of service: 07/20/2019 Subjective: Feeling better today. A little short of breath. No chest discomfort, lightheadedness or palpitations. Difficulty with her rheumatoid arthritis today. Review of Systems Constitutional: Constitutional: Denies fatigue and Denies headache(s) Eyes: Eyes: Denies blurry vision ENT: Reports Normal hearing present, Denies headache(s), Denies lip swelling, Denies epistaxis and Denies neck pain Car
--- NOTE | 2019-07-20 11:49 | PM.DS ---
DS: Admitting Diagnosis Admitting Diagnosis Admitting Diagnosis: Supraventricular tachycardia DS: Discharge Diagnosis Discharge Diagnosis (1) SVT (supraventricular tachycardia): Code(s): I47.1 - Supraventricular tachycardia Status: Acute Assessment and Plan: Patient is 69-year-old female with history of severe COPD and recurrent SVT patient presented emergency department with shortness of breath SVT with a rate of 188 confirm on the EKG patient was given adenosine 6 mg IV which did help and her rate trended down, also patient magnesium was quite low and supplemented patient is seen by customer trainer increase held diltiazem 90 mg t.i.d. and magnesium 400 mg b.i.d., currently patient clinically stable rate is controlled. Pt sp heart cath yesterday. Hopeful discharge today (2) Chest pain: Qualifiers: Chest pain type: unspecified Qualified Code(s): R07.9 - Chest pain, unspecified Code(s): R07.9 - Chest pain, unspecified Status: Acute Assessment and Plan: Likely due to the patient's SVT. Chest pain is resolved (3) Elevated troponin: Code(s): R79.89 - Other specified abnormal findings of blood chemistry Status: Acute Assessment and Plan: Likely secondary to the patient's SVT. Pt had heart cath today with stenting Conclusion:: 1- successful stenting of distal RCA using 3 x 15 stent. 2- successful balloon angioplasty of proximal portion of left PDA. Pt to continue ASA and brinilta Hopeful discharge today DS: Summary Time Spent with Patient Time attestation: Total time spent providing and/or coordinating discharge services:40 minutes on day of discharge Exam Narrative: Exam Narrative: Appears chronically ill older than her age Const: General: comfortable and no acute distress HENMT: General nose exam: Normal nares present Mouth: Yes moist mucous membranes Eyes: General: appearance normal, both eyes and all related structures Sclera: sclerae normal Neck: Neck: supple Resp: Other: Bilateral poor air entry with rhonchi Cardio: Rate: regular rate Rhythm: regular rhythm Skin: General skin exam: other (severe RA of hands ) Neuro: Speech: normal speech Sensory Exam: normal sensation Extrem: General: normal to inspection Psych: Affect: Anxious affect present DS: Data Data Completed and Pending Labs on day of discharge: Labs from last 24 hours 07/20/19 07/20/19 07/19/19 07:49 04:28 20:06 Sodium 132 L Potassium 4.2 Chloride 96 L Carbon Dioxide 28 BUN 28 H Creatinine 1.00 Estim Creat Clear Calc 39 Estimated GFR 55 L Glucose 192 H POC Capillary Glucose 177 H 205 H Calcium 9.1 Magnesium 2.1 07/19/19 16:10 Sodium Potassium Chloride Carbon Dioxide BUN Creatinine Estim Creat Clear Calc Estimated GFR Glucose POC Capillary Glucose 184 H Calcium Magnesium Discharge Plan Discharge Attending physician on discharge: Stefanie Meade Consulting providers: Shahriar Loza ; Dimitri Rubio Discharging Clinician: Stefanie Meade Anticipated Discharge Date/Time: 07/20/19 11:46 Patient Disposition: Home, Self-Care Activity: as tolerated Diet: heart healthy Wound Care Instructions: follow printed instructions Discharge Instructions: CARDIOLOGY DISCHARGE INSTRUCTIONS ACTIVITY: No driving until Tuesday, July 23, 2019. No lifting, pushing or pulling more than 10 pounds for 1 week. No strenuous exercise or activity until your released to do so. May shower but no tub baths or swimming pool for 1 week. Avoid commercial hot tubs. They are too hot DO NOT STOP YOUR MEDICATIONS! ONLY YOUR DAIRY TECHNOLOGIST CAN STOP THE FOLLOWING MEDICATIONS: Aspirin Brilinta Atorvastatin Losartan Metoprolol succinate PLEASE CALL THE OFFICE IF THESE MEDICATIONS NEED TO BE STOPPED Keep your stent card in your wallet at all times Read food labels for high
[2019-07-20 12:00] LABS: Glucose Point of Care 213 (65-105)
== END 2019-07-20 12:05 | disposition home or self-care (01) | DRG 247 ==
LOC: ANHED 19:42 → ANHIMU 20:09
PROVIDERS: Family Medicine; General Practice; Internal Medicine Cardiovascular Disease; Nurse Practitioner Adult Health; Admitting Provider Internal Medicine; Emergency Provider Emergency Medicine; PCP Family Medicine Sports Medicine; Visit Provider Family Medicine
PROC: 4A023N7 Measurement of Cardiac Sampling and Pressure, Left Heart, Percutaneous Approach (ICD-10-PCS; CPT 93452; principal; 2019-07-19 10:00)
PROC: 027034Z Dilation of Coronary Artery, One Artery with Drug-eluting Intraluminal Device, Percutaneous Approach (ICD-10-PCS; 2019-07-19 10:00)
PROC: 02703ZZ Dilation of Coronary Artery, One Artery, Percutaneous Approach (ICD-10-PCS; CPT 92920; 2019-07-19 10:00)
DX: I47.1 Supraventricular tachycardia (principal); I24.8 Other forms of acute ischemic heart disease; J96.11 Chronic respiratory failure with hypoxia; I50.32 Chronic diastolic (congestive) heart failure; I25.10 Atherosclerotic heart disease of native coronary artery without angina pectoris; R07.9 Chest pain, unspecified; J44.9 Chronic obstructive pulmonary disease, unspecified; Z99.81 Dependence on supplemental oxygen; E83.42 Hypomagnesemia; I11.0 Hypertensive heart disease with heart failure; F32.9 Major depressive disorder, single episode, unspecified; K21.9 Gastro-esophageal reflux disease without esophagitis; G47.33 Obstructive sleep apnea (adult) (pediatric); M06.9 Rheumatoid arthritis, unspecified; Z87.442 Personal history of urinary calculi; E11.42 Type 2 diabetes mellitus with diabetic polyneuropathy; Z95.5 Presence of coronary angioplasty implant and graft; Z87.891 Personal history of nicotine dependence
CPT/HCPCS: 36415; 71046; 80048; 80053; 83735; 83880; 84443; 84484; 85025; 85610; 85730; 92920; 93005; 93458; 94640; 96361; 96374; 96375; 99285; A9270; C1725; C1769; C1874; C1887; C1894; C9600; J0153; J0360; J0583; J1644; J1650; J2250; J2405; J3010; J3475; J7030; J7040

== ENCOUNTER 2019-07-26 12:13 | Outpatient (RCR) | payer MEDICARE, SELFPAY ==
[2019-07-26 13:41] LABS: Hematocrit 38.7 % (37.0-47.0); Hemoglobin 12.2 g/dL (12.0-15.0); Mean Corpuscular HGB Conc 31.5 g/dl (32-36); Mean Corpuscular Hemoglobin 27.4 pg (26-34); Platelet Count Result 239 k/mm3 (150-375); Red Blood Count 4.45 M/mm3 (4.2-5.4); Red Cell Distribution Width 13.7 % (11.5-14.5); White Blood Count 8.5 K/mm3 (4.5-10.0)
[2019-07-26 13:53] LABS: Blood Urea Nitrogen 23 mg/dL (7-17); Calcium 9.7 mg/dL (8.4-10.2); Carbon Dioxide 35 mmol/L (22-30); Chloride 96 mmol/L (98-107); Estimated Glomerular Filt Rate > 60; Glucose 260 mg/dL (65-105); Magnesium 1.7 mg/dL (1.6-2.3); Potassium 4.9 mmol/L (3.4-5.0); Sodium 136 mmol/L (137-145)
[2019-07-26 13:54] LABS: Alanine Aminotransferase 14 U/L (4-35); Alkaline Phosphatase 132 U/L (38-126); Aspartate Amino Transferase 18 U/L (14-36); Bilirubin,Total 0.4 mg/dL (0.2-1.3)
== END 2019-10-24 23:59 | disposition home or self-care (01) ==
LOC: ANHLAB 12:13
PROVIDERS: Referring Provider Nurse Practitioner Adult Health; Visit Provider Internal Medicine Rheumatology
DX: Z51.81 Encounter for therapeutic drug level monitoring (principal); Z79.01 Long term (current) use of anticoagulants
CPT/HCPCS: 36415; 80048; 80076; 83735; 85027

== ENCOUNTER 2019-08-25 21:40 | Observation (INO) | payer MEDICARE, SELFPAY ==
--- NOTE | ~2019-08-25 | XR_ITS ---
EXAMINATION: XR chest 1V portable EXAM DATE: 08/25/2019 22:43 INDICATION: Generalized chest pain. History of 3 stents. TECHNIQUE: Portable AP frontal chest x-ray was obtained. Comparison is made to prior examination from 07/16/2019, 03/21/2019. FINDINGS: There is moderate chronic hyperinflation. Cardiomediastinal silhouette is normal. There is basilar prominent reticular markings, finding which has been consistent on 2 prior chest x-rays from this year. Therefore, likely chronic component, interstitial lung disease. No definite superimposed a cute airspace disease. No pneumothorax or pleural effusion. There is aortic arteriosclerosis. There a re mild bony degenerative changes. IMPRESSION: 1. Mild chronic interstitial lung disease. 2. Moderate chronic hyperinflation. Reviewed, dictated and finalized at location A.
[2019-08-25 21:50] VITALS: BP 130/69; PULSE 92; RESP 18; TEMP 36.8; O2SAT 100
[2019-08-25 21:56] VITALS: O2SAT 100
--- NOTE | 2019-08-25 21:56 | ECG_ITS ---
Measurements Intervals [place] Rate: 96 P: 65 [place]: 158 QRS: -25 QRSD: 88 T: 53 QT: 331 QTc: 419 Interpretive Statements SINUS RHYTHM POSSIBLE LEFT ATRIAL ENLARGEMENT BORDERLINE ST ABNORMALITY- ANTEROLATERAL LEADS BORDERLINE ECG Electronically Signed On 08-26-2019 7:56:05 CDT by Joshua Bennett D.O.
[2019-08-25 22:05] LABS: Basophils Absolute Auto 0.1 K/mm3 (0.0-0.1); Basophils Percent Auto 0.7 % (0.2-1.2); Eosinophils Absolute Auto 0.5 K/mm3 (0-0.3); Hematocrit 37.2 % (37.0-47.0); Hemoglobin 11.9 g/dL (12.0-15.0); Immature Granulocyte Absolute 0.09 K/mm3 (0.00-0.031); Immature Granulocyte Percent A 1.2 % (0-0.5); Mean Corpuscular Hemoglobin 28.1 pg (26-34); Mean Corpuscular Volume 87.7 fl (80-100); Mean Platelet Volume 10.2 fl (7.4-10.4); Monocytes Absolute Auto 0.5 K/mm3 (0.1-0.6); Monocytes Percent Auto 7.2 % (2.6-8.5); Neutrophils Absolute Auto 4.9 K/mm3 (1.3-6.7); Neutrophils Percent Auto 64.9 % (45.5-73.1); Platelet Count Result 158 k/mm3 (150-375); Red Blood Count 4.24 M/mm3 (4.2-5.4); Red Cell Distribution Width 15.2 % (11.5-14.5); White Blood Count 7.5 K/mm3 (4.5-10.0)
[2019-08-25 22:14] LABS: Prothrombin Time 12.9 Seconds (11.1-14.7)
--- NOTE | 2019-08-25 22:14 | ED.CHESTPAIN ---
HPI - Chest Pain General Chief Complaint: Chest Pain Stated Complaint: chest pain Time Seen by Provider: 08/25/19 21:49 Source: RN notes reviewed History of Present Illness HPI narrative: Patient presents emergency department from home for chest pain. Patient states that pain began approximately an hour prior to arrival. The pain is located in the midsternal chest and described as a tightness. Patient notes mild shortness of breath with the pain. Patient states that she had called EMS and pain had improved upon EMS arrival and is currently resolved. Upon EMS arrival it was noted that the patient oxygen was not currently on and the patient is normally on 4 L nasal cannula. Patient denies any fevers or chills abdominal pain nausea vomiting or any other symptoms. Notes history of previous cardiac stent patient received aspirin 324 mg by EMS Related Data Home Medications Medication Instructions Recorded Confirmed atorvastatin 10 mg PO DAILY 03/21/19 07/16/19 diltiazem HCl 60 mg PO TID 03/21/19 07/16/19 furosemide 40 mg PO DAILY 03/21/19 07/16/19 leflunomide 20 mg PO DAILY 03/21/19 07/16/19 magnesium oxide 400 mg PO DAILY 03/21/19 07/16/19 metformin 500 mg PO BID 03/21/19 07/16/19 metoprolol succinate 100 mg PO DAILY 03/21/19 07/16/19 nortriptyline 25 mg PO DAILY 03/21/19 07/16/19 potassium chloride 20 meq PO DAILY 03/21/19 07/16/19 sertraline 50 mg PO HS 03/21/19 07/16/19 roflumilast 500 mcg tablet 500 mcg PO DAILY 06/20/19 07/16/19 umeclidinium 62.5 mcg-vilanterol 1 inhalation INHALATION DAILY 06/20/19 07/16/19 25 mcg/actuation powdr for inhalation levalbuterol HCl 1.25 mg INHALATION Q4H PRN 07/16/19 07/16/19 Allergies Allergy/AdvReac Type Severity Reaction Status Date / Time morphine Allergy Mild Itching Verified 08/25/19 21:57 pregabalin Allergy Unknown Itching Verified 08/25/19 21:57 Review of Systems Review of Systems: Narrative: Gen.: Denies fevers or chills ENT: Denies congestion Respiratory: Denies shortness of breath or cough CV: Reports chest pain with GI: Denies abdominal pain nausea, emesis or diarrhea Musculoskeletal: Denies back pain or muscle pain Neuro: Denies numbness, tingling, weakness or focal weakness Skin: Denies rash Except as documented, all other systems reviewed and negative [facility] Past Medical History Medical History A-fib With an ablation and paroxysmal Anxiety CAD (coronary artery disease) s/p 3stents Non STEMI May 2017 Chronic anemia Chronic respiratory failure with hypoxia Chronically on oxygen at 5 L per nasal cannula. Congestive heart failure Diastolic with most recent echocardiogram January 2019 demonstrating paradoxical septal motion consistent with right ventricular volume overload or elevated right ventricular end-diastolic pressure, EF 60-65%, mildly increased left ventricular wall thickness, grade 1 diastolic dysfunction, severely reduced right ventricular systolic function, severely enlarged right ventricular chamber, severely enlarged right atrial chamber, [id number] mitral valve regurgitation, trace tricuspid regurgitation, mild pulmonary hypertension with RVSP of 46 COPD (chronic obstructive pulmonary disease) 3L oxygen use during day and night Depression DM2 (diabetes mellitus, type 2) GERD (gastroesophageal reflux disease) History of kidney stones HTN (hypertension) Hyperlipidemia Hypomagnesemia Irritable bowel Kidney stone 2003 with surgery Obstructive sleep apnea With last sleep study March 2019 recommending auto bilevel with 5 L of oxygen Peripheral neuropathy Pulmonary nodules Rheumatoid arthritis Subarachnoid hemorrhage from fall in 12/2017 Social History Social History Social History: Primary care physician: Dr. Duane Chaudhary Code status: Full code Her is the durable power employment law attorney for healthcare. Roc
[2019-08-25 22:15] LABS: Partial Thromboplastin Time 23.8 SECONDS (22.3-36.8)
[2019-08-25 22:16] LABS: Blood Urea Nitrogen 17 mg/dL (7-17); Calcium 7.9 mg/dL (8.4-10.2); Carbon Dioxide 27 mmol/L (22-30); Chloride 106 mmol/L (98-107); Estimated CRCL calculation 48 ml/min; Estimated Glomerular Filt Rate > 60; Glucose 201 mg/dL (65-105); Potassium 4.3 mmol/L (3.4-5.0); Sodium 138 mmol/L (137-145)
[2019-08-25 22:28] LABS: Troponin I 0.019 ng/mL (0.000-0.034)
[2019-08-25 23:01] VITALS: BP 147/82; PULSE 70; RESP 16; O2SAT 100
[2019-08-26] VITALS (11 sets, daily range): BP systolic 131–165; BP diastolic 76–84; PULSE 63–97; RESP 14–18; TEMP 35.7–36.6; O2SAT 92–100; BMI 24.5
[2019-08-26 01:24] LABS: Troponin I 0.057 ng/mL (0.000-0.034)
--- NOTE | 2019-08-26 01:24 | ECG_ITS ---
Measurements Intervals [place] Rate: 73 P: 59 NE: 146 QRS: -26 QRSD: 90 T: 49 QT: 373 QTc: 413 Interpretive Statements SINUS RHYTHM WITH SINUS ARRHYTHMIA POSSIBLE LEFT ATRIAL ENLARGEMENT CANNOT RULE OUT SEPTAL INFARCT, AGE INDETERMINATE BORDERLINE ST ABNORMALITY- LATERAL LEADS BASELINE WANDER- V6 BORDERLINE ECG Electronically Signed On 08-26-2019 7:57:45 CDT by Joshua Bennett D.O.
[2019-08-26] MEDS: ENOXAPARIN 60 MG/0.6 ML SYRINGE SUB-Q (02:44)
--- NOTE | 2019-08-26 03:50 | PC.NURSE ---
This patient, Piedad Andrade, was admitted to IMU Room 212-01 at 0315. Patient/family oriented to hospital policies and general routines including ID bracelet, bed and alarms, visiting hours, pain management, procedures, bathroom and other care routines, personal items, smoking policy, room service/diet, and visiting hours. Valuables list has been completed. Information on how to activate the Rapid Response Team has been discussed. Patient/Family are encouraged to report perceived risks to care and to ask questions if they do not understand what they are told or what they should do.
[2019-08-26 04:33] LABS: Troponin I 0.082 ng/mL (0.000-0.034)
[2019-08-26] MEDS: SODIUM CHLORIDE 0.9% IV 1,000 ML 80 ML IV CONT (06:28)
[2019-08-26] MEDS: DILTIAZEM HCL 60 MG TABLET PO (07:23)
[2019-08-26] MEDS: MAGNESIUM OXIDE 400 MG TABLET PO (08:48)
[2019-08-26] MEDS: POTASSIUM CHLORIDE 20 MEQ TABLET.ER PO (08:48)
[2019-08-26] MEDS: LOSARTAN POTASSIUM 50 MG TABLET PO (08:48)
[2019-08-26] MEDS: ATORVASTATIN 10 MG TABLET PO (08:48)
[2019-08-26] MEDS: METOPROLOL SUCCINATE EXT REL 50 MG TABCR PO (08:48)
[2019-08-26] MEDS: METOPROLOL SUCCINATE EXT REL 100 MG TABCR PO (08:48)
[2019-08-26] MEDS: ROFLUMILAST 500 MCG TABLET PO (08:49)
[2019-08-26] MEDS: TICAGRELOR 90 MG TABLET PO (08:49)
[2019-08-26] MEDS: metFORMIN HCL 500 MG TABLET PO (08:49)
[2019-08-26] MEDS: ASPIRIN 81 MG CHEWABLE TABLET PO (08:50)
--- NOTE | 2019-08-26 08:57 | PM.SD ---
Same Day Admit/Disch: HPI History of Present Illness Chief complaint: NSTEMI Narrative: DAte of Service: 08/26/2019 Piedad Andrade is a 69 year old female who was admitted for observation for chest pain. she has a h/o CAD, s/p stent to the distal RCA 06/2019, PSVT and COPD on home O2. Dr. Duane Venegas is her primary care doctor and Dr. 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 In June the pt was admitted w/ another episode of SVT asso w/chest pain and ST depression. Cardiac catheterization revealed a tight stenosis of the distal RCA which was stented with a drug-eluting stent, and she had plain old balloon angioplasty of the PDA. She did well until yesterday evening, after dinner when she was sitting and relaxing, she started having substernal chest discomfort which felt like indigestion. It did not go away with Tums and went on for about 45-60 minutes. She was nauseated and sweaty. She called her who called EMS. On their arrival, they discovered that her oxygen machine was unplugged and her O2 sat was 86% with a heart rate of 120 beats per minute. After resuming her oxygen the pain went away very quickly. She is brought to the emergency room has been fine overnight. She is eager for discharge. The patient has been compliant with her aspirin and Brilinta. She wears 4 L of oxygen continuously for COPD. She has had no episodes of SVT or palpitations since her diltiazem was increased. She is able to do house work with no particular problems and no angina. She has had hospitalizations for chronic right-sided failure. She had a non-STEMI in May 2017 and had multivessel disease. She was thought to be a poor candidate for CABG, underwent PCI by Dr. milagro lópez with a KARRIE to the mid RCA, KARRIE to the mid Left anterior descending in a KARRIE to the mid circumflex. She has a history of PSVT and has been followed by Dr. Gifford at. She underwent ablation of an in February 2018 but has had recurrence treated with med medically. He was discussing a repeat EP study, sotalol or, possibly, amiodarone therapy. Echo in October 2018 showed an EF of 55-60% with right ventricular dilatation. The patient also has hypertension, diabetes, PAF, JOAQUIN, GERD, irritable bowel, rheumatoid arthritis and history of depression. [facility] Past Medical History Medical History (Updated 08/26/19 @ 09:23 by Abigail Moraes MD) A-fib With an ablation and paroxysmal Anxiety CAD (coronary artery disease) s/p 3 stents (mid LAD, mid CX, mid RCA) after Non STEMI May 201706/2019: Stent to the distal RCA, POBA PDA Chronic anemia Chronic respiratory failure with hypoxia Chronically on oxygen at 5 L per nasal cannula. Congestive heart failure Diastolic with most recent echocardiogram January 2019 demonstrating paradoxical septal motion consistent with right ventricular volume overload or elevated right ventricular end-diastolic pressure, EF 60-65%, mildly increased left ventricular wall thickness, grade 1 diastolic dysfunction, severely reduced right ventricular systolic function, severely enlarged right ventricular chamber, severely enlarged right atrial chamber, [id number] mitral valve regurgitation, trace tricuspid regurgitation, mild pulmonary hypertension with RVSP of 46 COPD (chronic obstructive pulmonary disease) 3L oxygen use during day and night Depression DM2 (diabetes mellitus, type 2) GERD (gastroesophageal reflux disease) History of kidney stones HTN (hypertension) Hyperlipidemia Hypomagnesemia Irritable bowel Kidney stone 2004 with surgery Obstructive sleep apnea With last sleep study March 2019 recommending auto bilevel with 5 L of oxygen Peripheral neuropathy PSVT (paroxysmal supraventricular tachycardia) Pulmonary nodules Rheumatoid arthritis Subarachnoid hemorrhage from fall in 12/2017 Surgical History Surgical History H/O heart artery stent 3 stents at [facility]. Dr. shaheed Vela
== END 2019-08-26 11:30 | disposition home or self-care (01) ==
LOC: ANHED 08-26 02:49 → ANHIMU 08-26 02:52
PROVIDERS: Admitting Provider Internal Medicine Cardiovascular Disease; Emergency Provider Emergency Medicine; Visit Provider Internal Medicine Cardiovascular Disease
DX: I25.118 Atherosclerotic heart disease of native coronary artery with other forms of angina pectoris (principal); J96.11 Chronic respiratory failure with hypoxia; J44.9 Chronic obstructive pulmonary disease, unspecified; Z99.81 Dependence on supplemental oxygen; I47.1 Supraventricular tachycardia; R79.89 Other specified abnormal findings of blood chemistry; I11.0 Hypertensive heart disease with heart failure; I50.813 Acute on chronic right heart failure; I48.0 Paroxysmal atrial fibrillation; I25.2 Old myocardial infarction; G47.33 Obstructive sleep apnea (adult) (pediatric); E11.42 Type 2 diabetes mellitus with diabetic polyneuropathy; K58.9 Irritable bowel syndrome, unspecified; M06.9 Rheumatoid arthritis, unspecified; F32.9 Major depressive disorder, single episode, unspecified; Z87.891 Personal history of nicotine dependence; Z95.5 Presence of coronary angioplasty implant and graft
CPT/HCPCS: 36415; 71045; 80048; 84484; 85025; 85610; 85730; 93005; 96372; 99285; A9270; G0378; J1650; J7030

== ENCOUNTER 2019-09-12 14:23 | Outpatient (CLI) | payer MEDICARE, SELFPAY ==
[2019-09-17 14:37] LABS: NIL 0.01 IU/mL; Quantiferon TB Plus, 1T NEGATIVE (NEGATIVE)
== END 2019-09-12 14:24 | disposition home or self-care (01) ==
PROVIDERS: Visit Provider Internal Medicine Rheumatology
DX: Z11.1 Encounter for screening for respiratory tuberculosis (principal)
CPT/HCPCS: 36415; 86480

== ENCOUNTER 2019-09-25 14:56 | Outpatient (CLI) | payer MEDICARE, SELFPAY ==
--- NOTE | ~2019-09-25 | CT_ITS ---
EXAMINATION: CT lung screening DATE: 09/25/2019 15:35 INDICATION: Personal history of nicotine dependence, current smoker with 40 pack year history TECHNIQUE: Computed tomography (CT) of the chest was performed without intravenous contrast. The dose -length product (DLP) was 74.10 mGy-cm. Automated exposure control and iterative reconstruction techn [id number] were employed. COMPARISON: 11/07/2018 FINDINGS: There is severe emphysema. No suspicious pulmonary nodules are identified. The lungs are fr ee of focal airspace opacities. There is no pleural effusion or pneumothorax. Calcified coronary jesusita ry atherosclerosis is noted. No pathologically enlarged thoracic lymph nodes are identified. The hear t size is normal. There is enlargement of the main and central pulmonary arteries, consistent with pu lmonary hypertension. The gallbladder is surgically absent. There is mild thoracic spondylosis. Old right-sided rib fractures are noted. IMPRESSION: 1. Lung-RADS category 1: Negative. Continue annual screening with noncontrast low-dose chest CT in 12 months. Reviewed, dictated and finalized at location B. IMPRESSION: 1. Lung-RADS category 1: Negative. Continue annual screening with noncontrast l ow-dose chest CT in 12 months.
== END 2019-09-25 14:57 | disposition home or self-care (01) ==
PROVIDERS: Visit Provider Nurse Practitioner Family
DX: Z12.2 Encounter for screening for malignant neoplasm of respiratory organs (principal); Z87.891 Personal history of nicotine dependence
CPT/HCPCS: G0297

== ENCOUNTER 2019-11-08 08:32 | Inpatient (IN) | payer MEDICARE, SELFPAY ==
[2019-11-08] VITALS (9 sets, daily range): BP systolic 145–192; BP diastolic 71–96; PULSE 76–115; RESP 13–22; TEMP 36.4–36.8; O2SAT 90–100; BMI 24.5
--- NOTE | ~2019-11-08 | XR_ITS ---
EXAMINATION: XR knee RT 3V DATE: 11/08/2019 10:27 INDICATION: Right knee pain after fall TECHNIQUE: Three views of the right knee were obtained. COMPARISON: None. FINDINGS: Alignment is normal. No fracture or osteochondral lesion. There is mild tricompartmental os teoarthritis characterized by tiny marginal osteophytes. No joint effusion/synovitis. Calcified athe rosclerosis is noted. IMPRESSION: 1. No acute osseous abnormality. Reviewed, dictated and finalized at location B.
--- NOTE | ~2019-11-08 | XR_ITS ---
EXAMINATION: XR chest 1V INDICATION: Pain after fall TECHNIQUE: PA view of the chest is obtained. COMPARISON: 08/25/2019 FINDINGS: The lungs are hyperinflated but free of acute opacities. There is no pleural effusion or pn eumothorax. The cardiomediastinal silhouette is normal for technique. An old right seventh rib fractu re is noted. IMPRESSION: 1. Hyperinflation without acute cardiopulmonary abnormality. Reviewed, dictated and finalized at location B.
--- NOTE | ~2019-11-08 | CT_ITS ---
EXAMINATION: CT brain wo con DATE: 11/08/2019 10:15 INDICATION: Fall. Head injury. TECHNIQUE: Computed tomography (CT) of the head was performed without intravenous contrast. The mA wa s adjusted according to patient size. Iterative reconstruction technique was employed. Exam dose: 68 1.00 mGy-cm total exam DLP. COMPARISON: 09/25/2018 CT brain FINDINGS: No intracranial mass lesion or hemorrhage or recent cerebrovascular accident is evident. No midline shift or mass effect. Normal ventricular size. Bilateral vertebral artery and carotid siphon internal carotid artery calcifications. There is nonspe cific diminished attenuation of the subcortical and periventricular cerebral white matter, likely due to chronic small vessel ischemic changes. Small focal area of hypoattenuation at the anterior limb of the left internal capsule (series 2 image 35) may represent a small chronic lacunar infarct. No fracture or bone destruction of the cranial vault. No subdural or epidural hematoma. There is minimal focal posterior lower left maxillary sinus mucoperiosteal thickening and minimal foc al soft tissue thickening of the left ethmoid air cell region. The and paranasal sinuses and mastoid air cells are otherwise normally developed and aerated. IMPRESSION: Cerebral atherosclerosis and chronic small vessel ischemic changes of the cerebral white matter Possible small chronic lacunar infarct in the region of the anterior limb of the left internal capsul e Reviewed, dictated and finalized at Location A. Reviewed, dictated and finalized at location A. IMPRESSION: Cerebral atherosclerosis and chronic small vessel ischemic changes of the cerebral white matter Possible small chronic lacunar infarct in the region of the anterior limb of th e left internal capsule
--- NOTE | ~2019-11-08 | XR_ITS ---
EXAMINATION: XR hip RT 2V w AP pelvis INDICATION: Right hip pain, initial encounter TECHNIQUE: AP view the pelvis and two views of the right hip are obtained. COMPARISON: 06/19/2018 FINDINGS: There is an acute, traumatic, closed, nondisplaced intertrochanteric fracture of the right femur. The femoral heads are well-seated in their acetabula. Calcified atherosclerosis is noted. IMPRESSION: 1. Nondisplaced intertrochanteric right femur fracture. Reviewed, dictated and finalized at location B.
--- NOTE | ~2019-11-08 | CT_ITS ---
EXAMINATION: CT thoracic lumbar wo con DATE: 11/08/2019 10:16 INDICATION: Pain after fall TECHNIQUE: Computed tomography (CT) of the thoracic and lumbar spine was performed without intravenou s contrast. The dose-length product (DLP) was 701.29 mGy-cm. Iterative reconstruction was used. COMPARISON: None FINDINGS: Thoracic spine: There is no fracture, dislocation, or subluxation. Mild loss of intervertebral disc s pace height is present at multiple levels. The vertebral body heights are maintained. Small degenerat rafael osteophytes project from the anterior endplates of multiple vertebral bodies. Old right-sided rib fractures are noted. There is severe emphysema. Lumbar spine: There is no fracture, dislocation, or subluxation. The vertebral body heights, alignmen t, and intervertebral disc spaces are normal. The paravertebral soft tissues are unremarkable. Mild p osterior disc bulging is noted. There is nonobstructing bilateral nephrolithiasis. IMPRESSION: 1. Mild thoracic and lumbar spondylosis without acute findings. 2. Healed right-sided rib fractures. 3. Severe emphysema. Reviewed, dictated and finalized at location B.
--- NOTE | ~2019-11-08 | XR_ITS ---
EXAMINATION: XR hip RT min 2V DATE: 11/13/2019 17:08 INDICATION: Right hip pain. TECHNIQUE: 2 views of right hip were obtained. COMPARISON: Right hip radiographs 11/08/2019 FINDINGS: There is an intratrochanteric fracture of proximal right femur. The distal fracture fragmen t demonstrates near-anatomic alignment. Right hip joint space is normal. IMPRESSION: 1. Stable intertrochanteric fracture of proximal right femur. Reviewed, dictated and finalized at location A.
--- NOTE | ~2019-11-08 | CT_ITS ---
EXAMINATION: CT cervical spine wo con DATE: 11/08/2019 10:16 INDICATION: Head injury TECHNIQUE: Computed tomography (CT) of the cervical spine was performed without intravenous contrast. The dose-length product (DLP) was 183.70 mGy-cm. Automated exposure control and iterative reconstruc tion technique were employed. COMPARISON: 01/17/2018 FINDINGS: There is no fracture, dislocation, or subluxation. The vertebral body heights are normal. T here is mild loss of intervertebral disc space height at multiple levels. Also seen is mild facet and uncovertebral joint osteoarthritis. The odontoid is intact. The prevertebral soft tissues are normal . Calcified coronary artery atherosclerosis is noted. There is severe emphysema visualized lung apice s. IMPRESSION: 1. Mild cervical spondylosis without acute findings. Reviewed, dictated and finalized at location B.
--- NOTE | 2019-11-08 08:29 | ED.GENADULT ---
HPI - General Adult General Chief complaint: Fall Stated complaint: fall Source: patient and EMS Mode of arrival: EMS Limitations: no limitations History of Present Illness HPI narrative: Patient is a 69-year-old female with a history of atrial fibrillation, congestive heart failure, COPD chronically on 4 to 5 L oxygen, who presents for evaluation following a ground-level fall. Patient reportedly went to pickup driver her oxygen tubing from the ground this morning to connect it to her cannula when she lost her balance, falling forward and landing on her right side. Patient is presenting complaining of headache pain, neck pain and right hip and knee pain. She is also reporting lower back pain. No numbness. She states she feels slightly weak in that right lower extremity. Patient denies any chest pain, palpitations, shortness of breath prior to the fall. Related Data Home Medications Medication Instructions Recorded Confirmed magnesium oxide 400 mg PO DAILY 03/21/19 09/03/19 potassium chloride 20 meq PO DAILY 03/21/19 09/03/19 metformin 500 mg PO BID 08/26/19 09/03/19 alendronate mg PO 11/08/19 atorvastatin 11/08/19 losartan 11/08/19 metformin mg 11/08/19 metoprolol succinate PO 11/08/19 metoprolol succinate PO 11/08/19 prednisone 11/08/19 roflumilast [Daliresp] mcg 11/08/19 ticagrelor [Brilinta] mg 11/08/19 Allergies Allergy/AdvReac Type Severity Reaction Status Date / Time morphine Allergy Mild Itching Verified 11/08/19 08:47 pregabalin Allergy Unknown Itching Verified 11/08/19 08:47 Review of Systems Review of Systems: Narrative: CONSTITUTIONAL: Denies fever, chills EYES: Denies visual changes ENT: Denies rhinorrhea, congestion, sore throat, or otalgia. CARDIOVASCULAR: Denies chest pain, palpitations RESPIRATORY: Denies cough or dyspnea. GASTROINTESTINAL: Denies abdominal pain, nausea, vomiting SKIN: Reports abrasion to right Elbow MUSCULOSKELETAL: Reports neck pain, lower back pain, hip pain on the right side as well as right knee pain NEUROLOGIC: Denies headache, numbness, reports with slight weakness in the right lower extremity PMFSH Past Medical History Medical History A-fib With an ablation and paroxysmal Anxiety CAD (coronary artery disease) s/p 3 stents (mid LAD, mid CX, mid RCA) after Non STEMI May 201706/2019: Stent to the distal RCA, POBA PDA Chronic anemia Chronic respiratory failure with hypoxia Chronically on oxygen at 5 L per nasal cannula. Congestive heart failure Diastolic with most recent echocardiogram January 2019 demonstrating paradoxical septal motion consistent with right ventricular volume overload or elevated right ventricular end-diastolic pressure, EF 60-65%, mildly increased left ventricular wall thickness, grade 1 diastolic dysfunction, severely reduced right ventricular systolic function, severely enlarged right ventricular chamber, severely enlarged right atrial chamber, [id number] mitral valve regurgitation, trace tricuspid regurgitation, mild pulmonary hypertension with RVSP of 46 COPD (chronic obstructive pulmonary disease) 3L oxygen use during day and night Depression DM2 (diabetes mellitus, type 2) GERD (gastroesophageal reflux disease) History of kidney stones HTN (hypertension) Hyperlipidemia Hypomagnesemia Irritable bowel Kidney stone 2003 with surgery Obstructive sleep apnea With last sleep study March 2019 recommending auto bilevel with 5 L of oxygen Peripheral neuropathy PSVT (paroxysmal supraventricular tachycardia) Pulmonary nodules Rheumatoid arthritis Subarachnoid hemorrhage from fall in 12/2017 Surgical History Surgical History H/O heart artery stent 3 stents at [facility] Dr. hummel February 2018 H/O lithotripsy H/O: hysterectomy History of cholecystectomy History of hysterectomy S/P ablation of atrial fibrillat
--- NOTE | 2019-11-08 09:26 | ECG_ITS ---
Measurements Intervals [place] Rate: 86 P: 76 IA: 167 QRS: -18 QRSD: 97 T: 82 QT: 383 QTc: 460 Interpretive Statements SINUS RHYTHM POSSIBLE LEFT ATRIAL ENLARGEMENT CANNOT RULE OUT SEPTAL INFARCT, AGE INDETERMINATE BORDERLINE ST-T WAVE ABNORMALITY- HIGH LATERAL LEADS BASELINE ARTIFACT- AVF, V4-V6 ABNORMAL ECG Electronically Signed On 11-08-2019 11:18:40 CDT by Joshua Bennett D.O.
[2019-11-08] MEDS: SODIUM CHLORIDE 0.9% IV 500 ML 999 ML IV CONT (09:42)
[2019-11-08] MEDS: diphenhydrAMINE HCl INJ 50 MG/ML VIAL 25 MG IV PUSH (09:44)
[2019-11-08] MEDS: ONDANSETRON INJ 4 MG/2 ML VIAL IV PUSH (09:44)
[2019-11-08] MEDS: MORPHINE SULFATE 4 MG/ML INJ IV PUSH (09:44)
--- NOTE | 2019-11-08 09:51 | PC.NURSE ---
0950 - Patient to imaging.
[2019-11-08 09:52] LABS: Basophils Percent Auto 0.4 % (0.2-1.2); Eosinophils Absolute Auto 0.7 K/mm3 (0-0.3); Eosinophils Percent Auto 6.7 % (0-4.4); Hematocrit 36.8 % (37.0-47.0); Immature Granulocyte Absolute 0.06 K/mm3 (0.00-0.031); Immature Granulocyte Percent A 0.6 % (0-0.5); Lymphocytes Absolute Auto 0.97 K/mm3 (0.9-3.2); Lymphocytes Percent Auto 9.2 % (18.3-44.2); Mean Corpuscular HGB Conc 32.6 g/dl (32-36); Mean Corpuscular Hemoglobin 28.5 pg (26-34); Mean Corpuscular Volume 87.4 fl (80-100); Mean Platelet Volume 9.9 fl (7.4-10.4); Monocytes Absolute Auto 0.6 K/mm3 (0.1-0.6); Monocytes Percent Auto 5.3 % (2.6-8.5); Neutrophils Absolute Auto 8.2 K/mm3 (1.3-6.7); Neutrophils Percent Auto 77.8 % (45.5-73.1); Platelet Count Result 165 k/mm3 (150-375); Red Blood Count 4.21 M/mm3 (4.2-5.4); Red Cell Distribution Width 13.4 % (11.5-14.5); White Blood Count 10.5 K/mm3 (4.5-10.0)
[2019-11-08 10:03] LABS: Anion Gap 4 mmol/L (8-16); Blood Urea Nitrogen 19 mg/dL (7-17); Carbon Dioxide 32 mmol/L (22-30); Chloride 102 mmol/L (98-107); Estimated CRCL calculation 43 ml/min; Estimated Glomerular Filt Rate > 60; Glucose 174 mg/dL (65-105); Potassium 4.3 mmol/L (3.4-5.0); Sodium 138 mmol/L (137-145)
[2019-11-08 10:05] LABS: Prothrombin Time 13.3 Seconds (11.1-14.7)
[2019-11-08 10:06] LABS: Partial Thromboplastin Time 27.1 SECONDS (22.3-36.8)
[2019-11-08 11:22] LABS: Add Urine Microscopic? YES; Appearance Urine Clear (Clear); Bacteria Urine 1+ /hpf; Bilirubin Urine Negative (Negative); Blood Urine 1+ (Negative); Color Urine Yellow (Yellow); Glucose Urine UA Negative (Negative); Ketones Urine Negative (Negative); Leukocyte Esterase Ur Trace LEU/UL (Negative); Mucus Urine Rare /lpf; Nitrate Urine Positive (Negative); Protein Urine 1+ mg/dL (Negative); Specific Grav Ur 1.021 (1.001-1.035); Squamous Epithelial Cell Urine Rare /hpf (Few); Urobilinogen Urine Negative mg/dL (<2.0)
--- NOTE | 2019-11-08 13:09 | ADMGEN ---
This patient, Piedad Andrade, was admitted to 3 [facility] Surg Room 323-01. Patient/family oriented to hospital policies and general routines including ID bracelet, bed and alarms, visiting hours, pain management, procedures, bathroom and other care routines, personal items, smoking policy, room service/diet, and visiting hours. Valuables list has been completed. Information on how to activate the Rapid Response Team has been discussed. Patient/Family are encouraged to report perceived risks to care and to ask questions if they do not understand what they are told or what they should do.
--- NOTE | 2019-11-08 14:27 | PM.IMHP ---
H&P: HPI History of Present Illness Date/Time: 11/08/19 14:27 Chief complaint: LOWER LEG WEAKNESS Narrative: Piedad Andrade is a 69 year old female Who has a history of COPD with chronic hypoxia. The patient chronically wears oxygen at 4-5 L per nasal cannula. Today the patient was picking up her oxygen tubing and lost her balance and fell from a ground level fall. She fell forward landing on the right side of her body. She is complaining of right-sided headache, neck pain and right hip pain and right knee pain. She also has some lower back pain as well. Her head CT was read as possible small chronically Eri infarct in the region of the anterior limb of the left internal capsule. Cerebral atherosclerosis and chronic small vessel ischemic changes of the cerebral white matter. Cervical spine CT read as mild cervical spondylosis without acute findings. Chest x-ray was read as hyperinflation without acute cardiopulmonary abnormality. Hip pelvis x-ray nondisplaced intertrochanteric right femur fracture. Right knee x-ray no acute osseous abnormality. Thoracic lumbar spine CT mild thoracic and lumbar spondylosis without acute findings. Healed right-sided rib fractures. Severe emphysema. Patient was also found to have UTI and was started on ceftriaxone. Patient was given morphine and a lot in the emergency room. The patient's station that she has an allergy to morphine but her allergy is just itching which is a side effect. She was also started on IV fluids and given IV Tylenol as well. I had just given her fentanyl and the patient was falling asleep during the interview. The is at the bedside. Date of service 11/08/2019. Review of Systems Review of Systems: All systems reviewed & are unremarkable except as noted in HPI and below Constitutional: Constitutional: Reports as per HPI and Reports no additional constitutional complaints Eyes: Eyes: Reports as per HPI and Reports no additional eye complaints ENT: Reports system reviewed and no additional complaints, except as documented and Reports Normal hearing present Cardiovascular: Cardiovascular: Reports no additional cardiovascular complaints Respiratory: Respiratory: Reports no additional respiratory complaints and Reports no additional respiratory complaints Gastrointestinal: Gastrointestinal: Reports as per HPI and Reports no additional gastrointestinal complaints Musculoskeletal: Musculoskeletal: Reports no additional musculoskeletal complaints Integumentary/Breasts: Skin/Breast: Reports system reviewed and no additional complaints, except as docu and Reports as per HPI Neurologic: Reports system reviewed and no additional complaints, except as documented, Reports as per HPI and Reports Normal hearing present Psychiatric: Psychiatric: Reports no additional psychiatric complaints and Reports as per HPI Endocrine: Endocrine: Reports no additional endocrine complaints Hematologic/Lymphatic: Hematologic/Lymphatic: Reports no additional hematologic/lymphatic complaints Allergic/Immunologic: Allergic/Immunologic: Reports no additional allergic/immunologic complaints [facility] Past Medical History Medical History (Updated 11/08/19 @ 14:33 by Ramandeep Ramirez NP) A-fib With an ablation and paroxysmal Anxiety CAD (coronary artery disease) s/p 3 stents (mid LAD, mid CX, mid RCA) after Non STEMI May 201706/2019: Stent to the distal RCA, POBA PDA Chronic anemia Chronic respiratory failure with hypoxia Chronically on oxygen at 5 L per nasal cannula. Congestive heart failure Diastolic with most recent echocardiogram January 2019 demonstrating paradoxical septal motion consistent with right ventricular volume overload or elevated right ventricular end-diastolic pressure, EF 60-65%, mildly increased left ventricular wall thickness, grade 1 diastolic dysfunction, severely reduced right ventricular systolic function, severely enlarged right ventricular chamber, severely enla
[2019-11-08 18:13] LABS: Glucose Point of Care 174 (65-105)
[2019-11-09] VITALS (17 sets, daily range): BP systolic 137–182; BP diastolic 78–96; PULSE 98–142; RESP 16–22; TEMP 36–37.1; O2SAT 92–100
[2019-11-09 02:36] LABS: Glucose Point of Care 173 (65-105)
[2019-11-09 06:01] LABS: Basophils Percent Auto 0.5 % (0.2-1.2); Eosinophils Absolute Auto 0.5 K/mm3 (0-0.3); Eosinophils Percent Auto 6.1 % (0-4.4); Hematocrit 37.2 % (37.0-47.0); Hemoglobin 12.1 g/dL (12.0-15.0); Immature Granulocyte Absolute 0.05 K/mm3 (0.00-0.031); Immature Granulocyte Percent A 0.7 % (0-0.5); Lymphocytes Absolute Auto 0.84 K/mm3 (0.9-3.2); Lymphocytes Percent Auto 11.1 % (18.3-44.2); Mean Corpuscular HGB Conc 32.5 g/dl (32-36); Mean Corpuscular Hemoglobin 28.5 pg (26-34); Mean Corpuscular Volume 87.5 fl (80-100); Mean Platelet Volume 9.9 fl (7.4-10.4); Monocytes Absolute Auto 0.5 K/mm3 (0.1-0.6); Monocytes Percent Auto 6.2 % (2.6-8.5); Neutrophils Absolute Auto 5.7 K/mm3 (1.3-6.7); Neutrophils Percent Auto 75.4 % (45.5-73.1); Platelet Count Result 148 k/mm3 (150-375); Red Blood Count 4.25 M/mm3 (4.2-5.4); Red Cell Distribution Width 13.4 % (11.5-14.5); White Blood Count 7.6 K/mm3 (4.5-10.0)
[2019-11-09] MEDS: hydrALAZINE HCL 20 MG/ML VIAL 10 MG IV PUSH ×2 (06:15→13:30)
[2019-11-09 06:31] LABS: Alanine Aminotransferase 22 U/L (4-35); Albumin Level 3.7 g/dL (3.5-5.1); Alkaline Phosphatase 94 U/L (38-126); Anion Gap 6 mmol/L (8-16); Aspartate Amino Transferase 26 U/L (14-36); Bilirubin,Total 0.7 mg/dL (0.2-1.3); Blood Urea Nitrogen 19 mg/dL (7-17); Calcium 9.1 mg/dL (8.4-10.2); Carbon Dioxide 30 mmol/L (22-30); Chloride 101 mmol/L (98-107); Estimated CRCL calculation 48 ml/min; Estimated Glomerular Filt Rate > 60; Glucose 190 mg/dL (65-105); Magnesium 1.4 mg/dL (1.6-2.3); Potassium 4.3 mmol/L (3.4-5.0); Sodium 137 mmol/L (137-145)
--- NOTE | 2019-11-09 07:06 | ECG_ITS ---
Measurements Intervals [place] Rate: 140 P: 73 [place]: 126 QRS: -33 QRSD: 97 T: 89 QT: 282 QTc: 431 Interpretive Statements SINUS TACHYCARDIA LEFT AXIS DEVIATION BORDERLINE R WAVE PROGRESSION, ANTERIOR LEADS ST-T WAVE ABNORMALITY IN LAT/HIGH LAT LEADS- CONSIDER ISCHEMIA ABNORMAL ECG Electronically Signed On 11-09-2019 7:21:01 CDT by Joshua Bennett D.O.
[2019-11-09 07:50] LABS: Glucose Point of Care 162 (65-105)
[2019-11-09] MEDS: METOPROLOL SUCCINATE EXT REL 50 MG TABCR 150 MG PO (08:19)
[2019-11-09] MEDS: FLUTICASONE PROPIONATE 0.05% NA SPR 16 GM BTL (*BKC) 2 SPRAY NASAL ×2 (08:20→11:18)
[2019-11-09] MEDS: MAGNESIUM SULFATE 3GM/D5W100ML 3 GM/100 ML BAG IVPB (08:20)
[2019-11-09 08:30] LABS: Troponin I 0.123 ng/mL (0.000-0.034)
--- NOTE | 2019-11-09 09:36 | PM.IMPN ---
Progress Note: A&P Assessment and Plan (1) Closed intertrochanteric fracture of right hip: Qualifiers: Encounter type: initial encounter Fracture alignment: nondisplaced Qualified Code(s): S72.144A - Nondisplaced intertrochanteric fracture of right femur, initial encounter for closed fracture Code(s): S72.141A - Displaced intertrochanteric fracture of right femur, initial encounter for closed fracture Status: Acute Assessment and Plan: Patient presents after a fall at home; imaging demonstrates a nondisplaced intertrochanteric right femur fracture. Dr Temple has been consulted - appreciate recommendations. She is NPO for now pending his consultation. Given her chronic respiratory failure with COPD, known coronary disease with recent stenting 06/2019, tachycardia and multiple other comorbidities she is a moderate to high risk surgical candidate and I appreciate cardiology consultation in this setting. She has itching with morphine and is currently maintained on IV fentanyl and IV tylenol. Insert Mcdonald catheter. Edit: I am notified by nursing late this afternoon that patient is expressing she is not interested in surgery at this time. RN tells me Dr. Temple is aware this. Resume her Brilinta and aspirin now. (2) Acute UTI: Code(s): N39.0 - Urinary tract infection, site not specified Status: Acute Assessment and Plan: Abnormal UA, patient endorses dysuria. Continue IV ceftriaxone while awaiting urine and blood cultures. (3) CAD (coronary artery disease): Qualifiers: Associated angina: with unspecified angina Coronary Disease-Associated Artery/Lesion type: [place] artery [place] vs. transplanted heart: [place] heart Qualified Code(s): I25.119 - Atherosclerotic heart disease of [place] coronary artery with unspecified angina pectoris Code(s): I25.10 - Atherosclerotic heart disease of [place] coronary artery without angina pectoris Status: Chronic Assessment and Plan: History of cardiac catheterization 06/2019 with stent to RCA; NSTEMI 05/2017 found to have multivessel disease at that time was felt to be a poor candidate for CABG and underwent PCI with stents x 3. Chest squeezing pressure this morning is intermittent, does not radiate, no associated diaphoresis but she is a bit nauseous. Stat EKG reviewed and may have some ST changes in V6, troponins are mildly elevated with a flat profile. Review of old labs show elevated troponins on each admission this year. Appreciate cardiology consultation in this setting. She is a patient of Dr Sullivan. (4) CHF (congestive heart failure): Qualifiers: Heart failure chronicity: acute on chronic Heart failure type: unspecified Qualified Code(s): I50.9 - Heart failure, unspecified Code(s): I50.9 - Heart failure, unspecified Status: Chronic Assessment and Plan: She was given her metoprolol this AM, other meds held due to NPO. KVO IV fluids to help avoid fluid overload and monitor I&Os. Edit: With the plan for surgery this evening, resume oral medications. (5) HTN (hypertension): Qualifiers: Hypertension type: unspecified Qualified Code(s): I10 - Essential (primary) hypertension Code(s): I10 - Essential (primary) hypertension Status: Chronic Assessment and Plan: BP elevated likely secondary to pain; IV hydralazine available. Continue metoprolol. Her losartan and Lasix on hold while NPO. Monitor BP and adjust this treatment as needed. Edit: Resume home meds. (6) COPD (chronic obstructive pulmonary disease): Qualifiers: COPD type: unspecified COPD Qualified Code(s): J44.9 - Chronic obstructive pulmonary disease, unspecified C
--- NOTE | 2019-11-09 10:08 | PM.CNOR ---
Assessment and Plan Assessment and plan (1) Closed intertrochanteric fracture of right hip: Qualifiers: Encounter type: initial encounter Fracture alignment: nondisplaced Qualified Code(s): S72.144A - Nondisplaced intertrochanteric fracture of right femur, initial encounter for closed fracture Code(s): S72.141A - Displaced intertrochanteric fracture of right femur, initial encounter for closed fracture Status: Acute Assessment and Plan: Minimally displaced fracture. Risk for displacement is high. High risk surgical candidate. We discussed the risks benefits and alternatives and agreed to proceed with open reduction and internal fixation of the right hip. Will plan on using a dynamic hip screw. She is interested in going home postoperatively, but will likely need a few weeks of rehab. History of Present Illness HPI Consult date: 11/09/19 Chief complaint: LOWER LEG WEAKNESS Narrative: Patient complains of acute hip pain. Fell from standing height. Tripped over Oxygen tube. Admitted through the emergency room for definitive management. No previous hip pain. Comfortable at rest. No numbness, tingling, or other associated symptoms. Review of Systems Review of Systems: Narrative: Denies loss of consciousness. Possible small cerebral infarct. Recent UTI treated with ceftriaxone. Abrasion on the right upper extremity. Severe cardiac disease with stent several months ago on anticoagulation treatment. Atrial fibrillation. Denies other orthopedic complaints at this time. History of rheumatoid arthritis. All systems reviewed & are unremarkable except as noted in HPI and below PMFSH Past Medical History Medical History A-fib With an ablation and paroxysmal Anxiety CAD (coronary artery disease) s/p 3 stents (mid LAD, mid CX, mid RCA) after Non STEMI May 201706/2019: Stent to the distal RCA, POBA PDA Chronic anemia Chronic respiratory failure with hypoxia Chronically on oxygen at 5 L per nasal cannula. Congestive heart failure Diastolic with most recent echocardiogram January 2019 demonstrating paradoxical septal motion consistent with right ventricular volume overload or elevated right ventricular end-diastolic pressure, EF 60-65%, mildly increased left ventricular wall thickness, grade 1 diastolic dysfunction, severely reduced right ventricular systolic function, severely enlarged right ventricular chamber, severely enlarged right atrial chamber, [id number] mitral valve regurgitation, trace tricuspid regurgitation, mild pulmonary hypertension with RVSP of 46 COPD (chronic obstructive pulmonary disease) 4L oxygen use during day and night Depression DM2 (diabetes mellitus, type 2) GERD (gastroesophageal reflux disease) History of kidney stones HTN (hypertension) Hyperlipidemia Hypomagnesemia Irritable bowel Kidney stone 2004 with surgery Obstructive sleep apnea With last sleep study March 2019 recommending auto bilevel with 5 L of oxygen Peripheral neuropathy PSVT (paroxysmal supraventricular tachycardia) Pulmonary nodules Rheumatoid arthritis Subarachnoid hemorrhage from fall in 12/2017 Surgical History Surgical History H/O bilateral cataract extraction H/O heart artery stent 3 stents at [facility]. Dr. hummel February 2018 H/O lithotripsy H/O: hysterectomy History of cholecystectomy History of hysterectomy S/P ablation of atrial fibrillation Status post bilateral foot surgery Family History Family History Sibling Diabetes mellitus Father Diabetes mellitus Asthma Pulmonary embolism Diet of pulmonary embolus age 58 Mother Murder Was killed in a store robbery age 53 Breast cancer Social History Social History (Reviewed 11/09/19 @ 10:12 b
[2019-11-09 10:22] LABS: Hemoglobin A1C 6.8 % (<5.7)
[2019-11-09] MEDS: FAMOTIDINE 20 MG/2 ML VIAL IV PUSH ×2 (11:17→19:58)
[2019-11-09] MEDS: EUCERIN CREAM 120 GM JAR 1 APPLIC TOPICAL (11:18)
[2019-11-09 11:21] LABS: Troponin I 0.107 ng/mL (0.000-0.034)
--- NOTE | 2019-11-09 12:19 | PM.CNCAR ---
Assessment and Plan Assessment and plan (1) Elevated troponin: Code(s): R79.89 - Other specified abnormal findings of blood chemistry Status: Acute (2) Preoperative cardiovascular examination: Code(s): Z01.810 - Encounter for preprocedural cardiovascular examination Status: Acute Assessment and Plan: Overall, patient is at high risk for cardiovascular complications in addition to history of severe underlying lung disease, hypertension, history of SVT, diabetes mellitus, and poor functional status. Furthermore, she is s/p drug-eluting stent implantation June 2019. In order to minimize acute GA/stent thrombosis risk, she must continue dual antiplatelet therapy without interruption. This will in turn increase bleeding risk perioperatively. Given transient chest pain this morning, mild troponin elevation although downward trending, I cannot exclude possibility of small non ST-elevation GA prior to presentation. This may have been exacerbated by recurrence of SVT with demand ischemia. However, upon review electronic record appears she has somewhat chronic troponin elevation. If nonsurgical options are not feasible, this would be favored. Nonetheless, efforts to minimize anesthesia time, fluid shifts and blood loss as much as possible are strongly advised. PT is hemodynamically stable and in SR currently. Patient is well aware of her high risk status and states clearly that she is not willing to accept immobility. Therefore, she is willing to accept CV complication risk and wishes to proceed to the operating room as recommended by orthopedic surgery. If going to OR soon ASA at a minimum, but I would prefer to give ASA and Brilinta now if ok with Orthopedic surgery. Call out to Dr. Temple to discuss operative plans and my recommendations. (3) Chest pain: Qualifiers: Chest pain type: unspecified Qualified Code(s): R07.9 - Chest pain, unspecified Code(s): R07.9 - Chest pain, unspecified Status: Acute Assessment and Plan: Transient, resolved, currently in sinus rhythm. Unclear if in association with SVT which has been documented during previous hospitalizations. (4) CAD (coronary artery disease): Code(s): I25.10 - Atherosclerotic heart disease of [place] coronary artery without angina pectoris Status: Chronic Assessment and Plan: as above. Continue dual antiplatelet therapy without interruption given recent drug-eluting stent June 2019. Continue losartan, statin, Toprol XL. (5) DM2 (diabetes mellitus, type 2): Qualifiers: Diabetes mellitus intermission coordinator insulin use: without snf use Diabetes mellitus complication status: without complication Qualified Code(s): E11.9 - Type 2 diabetes mellitus without complications Code(s): E11.9 - Type 2 diabetes mellitus without complications Status: Chronic Assessment and Plan: Per primary service (6) HTN (hypertension): Code(s): I10 - Essential (primary) hypertension Status: Chronic Assessment and Plan: uncontrolled. Likely exacerbated by pain. (7) Chronic respiratory failure with hypoxia: Code(s): J96.11 - Chronic respiratory failure with hypoxia Status: Chronic Assessment and Plan: Per primary service. Chronic O2 nasal cannula 4 L. (8) PSVT (paroxysmal supraventricular tachycardia): Code(s): I47.1 - Supraventricular tachycardia Status: Chronic Assessment and Plan: resolved. Continue property assessment monitor perioperatively including beta-samir therapy. History of Present Illness History of Present Illness Consult date/time: Date of Service: 11/09/19 12:19 This is a cardiology consultation at the request of KANG Caba of the [facility] for our opinion regarding prepoerative risk assessment, CP, and tachycardia. Requesting physician: Elaine Dennis PA-C Consult reason: pre-op evaluation R
[2019-11-09] MEDS: IPRATROPIUM BR 0.02% INH SOLN 0.5 MG/2.5 ML VIAL INHALATION ×2 (14:18→19:41)
[2019-11-09 14:31] LABS: Troponin I 0.097 ng/mL (0.000-0.034)
[2019-11-09] MEDS: ASPIRIN 81 MG CHEWABLE TABLET PO (17:49)
[2019-11-09] MEDS: TICAGRELOR 90 MG TABLET PO (17:49)
--- NOTE | 2019-11-09 19:52 | PC.NURSE ---
After pt spoke with Dr. Rubio, she became very concerned about going to surgery. She wanted to speak with Windy. I called Windy's office. They had Windy call up to the floor. When I transferred him into the room, the pt denied wanting to talk to him and told the to talk to him. I ended up having Windy call my cell, put it on speaker. Windy shared his concerns with her of having the surgery and her not having it. He suggested pt could not have it and go to a SNF for 4-6 weeks with stand/pivot only. The pt and felt that this was unreasonable with covid and her respiratory issues. Pt's suggested trying to rest here and recheck xray to see if any healing, and possibly stand/pivot here. Windy agreed to this and rechecking xray Tuesday. Awaiting orders for patient mobility change. Educated pt on limited mobility at this time. Pt has denied having any further chest pain from this AM.
--- NOTE | 2019-11-09 21:35 | PM.CNPUL ---
Assessment and Plan Assessment and plan (1) Chronic respiratory failure with hypoxia: Code(s): J96.11 - Chronic respiratory failure with hypoxia Status: Chronic Assessment and Plan: has hypoxemia and has had hypercapnea i nteh past; She has been on supplemental O2 for years, 4 L/min @ rest, 5 L/min @exertion/sleep; she has a combination of COPD and ILD associated with RA which worsens her hypoxemia Has had CO2 retention, and on admission had elevated serum CO2, now normalized. She has saturation 95-99% on 4 L/min, so this can e weaned. She has often increased her O2 on her own, and we have instructed her to decrease the O2 flow to main saturation 90-94%. * Wean O2 to get saturation 90-94%. * COPD management with controller medications, bronchodilator * Not having a COPD exacerbation; no need for systemic steroids * She is at risk for surgery based on multiple medical conditions, lungs and heart, as well as DM, HTN. Agree with choice not to have surgery. (2) COPD (chronic obstructive pulmonary disease): Qualifiers: COPD type: unspecified COPD Qualified Code(s): J44.9 - Chronic obstructive pulmonary disease, unspecified Code(s): J44.9 - Chronic obstructive pulmonary disease, unspecified Status: Chronic Assessment and Plan: Home meds: Anoro one puff a day, Daliresp 500 mcg a day for management of COPD and prednisone 5 mg a day for ILD It does not appear that these were on her home med list, often inhalers are omitted. She was also using short acting bronchodilator p.r.n. for shortness of breath. (3) ILD (interstitial lung disease): Code(s): J84.9 - Interstitial pulmonary disease, unspecified Status: Acute Assessment and Plan: Her ILD is associated with rheumatoid arthritis, changes on imaging dating to 2015 consistent with ILD; (4) Pulmonary hypertension: Code(s): I27.20 - Pulmonary hypertension, unspecified Status: Acute Assessment and Plan: mild, RVSP 46 mm Hg (5) JOAQUIN (obstructive sleep apnea): Code(s): G47.33 - Obstructive sleep apnea (adult) (pediatric) Status: Chronic Assessment and Plan: severe JOAQUIN on auto-biPAP with 5 L/min at night; she has her device nad is using it this admission (6) Former smoker: Code(s): Z87.891 - Personal history of nicotine dependence Status: Acute Assessment and Plan: none x 2013 History of Present Illness History of Present Illness Consult date: 11/10/19 Requesting physician: Elaine Dennis PA-C Reason for consult: COPD and hypoxemia Chief complaint: LOWER LEG WEAKNESS Narrative: NEW: Piedad Andrade is a 69 yo female followed in our practice with end stage COPD, chronic respiratory failure on O2 4 L/min at rest and 5 L/min with exertion and sleep, severe JOAQUIN on auto BiPAP, interstitial lung disease associated with rheumatoid arthritis, recently started on prednisone 5 mg a day at the last office visit on 09/03/2019. She has multiple cardiac co-morbidities, CAD with 3 stents placed in June 2019, PSVT, atrial fib with ablation, dCHF. She fell over oxygen tubing with caused a non-displaced inter-trochanteric fracture of the right hip, and due to her high risk for surgical repair, she has decided to have medical management instead of surgery. In addition to the fracture, she has a UTI, on antibiotics. Review of Systems Review of Systems: All systems reviewed & are unremarkable except as noted in HPI and below PMFSH Past Medical History Medical History (Reviewed 11/09/19 @ 12:34 by Segundo
[2019-11-10] VITALS (23 sets, daily range): BP systolic 127–164; BP diastolic 69–80; PULSE 87–127; RESP 16–22; TEMP 36.1–37.3; O2SAT 95–99
[2019-11-10] MEDS: hydrALAZINE HCL 20 MG/ML VIAL 10 MG IV PUSH (00:07)
[2019-11-10 00:31] LABS: Glucose Point of Care 167 (65-105)
[2019-11-10] MEDS: IPRATROPIUM BR 0.02% INH SOLN 0.5 MG/2.5 ML VIAL INHALATION ×4 (02:00→20:12)
[2019-11-10 06:10] LABS: Glucose Point of Care 235 (65-105)
[2019-11-10 06:10] LABS: Glucose Point of Care 141 (65-105)
[2019-11-10 07:32] LABS: Anion Gap 7 mmol/L (8-16); Blood Urea Nitrogen 19 mg/dL (7-17); Calcium 9.3 mg/dL (8.4-10.2); Carbon Dioxide 29 mmol/L (22-30); Chloride 100 mmol/L (98-107); Estimated CRCL calculation 54 ml/min; Estimated Glomerular Filt Rate > 60; Glucose 181 mg/dL (65-105); Magnesium 1.8 mg/dL (1.6-2.3); Sodium 136 mmol/L (137-145)
[2019-11-10 07:46] LABS: Basophils Percent Auto 0.5 % (0.2-1.2); Eosinophils Absolute Auto 0.5 K/mm3 (0-0.3); Eosinophils Percent Auto 5.8 % (0-4.4); Immature Granulocyte Absolute 0.06 K/mm3 (0.00-0.031); Immature Granulocyte Percent A 0.7 % (0-0.5); Lymphocytes Absolute Auto 1.07 K/mm3 (0.9-3.2); Mean Corpuscular HGB Conc 32.4 g/dl (32-36); Mean Corpuscular Volume 86.4 fl (80-100); Mean Platelet Volume 10.3 fl (7.4-10.4); Monocytes Absolute Auto 0.6 K/mm3 (0.1-0.6); Monocytes Percent Auto 6.7 % (2.6-8.5); Neutrophils Percent Auto 73.3 % (45.5-73.1); Platelet Count Result 178 k/mm3 (150-375); Red Blood Count 4.28 M/mm3 (4.2-5.4); Red Cell Distribution Width 13.8 % (11.5-14.5); White Blood Count 8.2 K/mm3 (4.5-10.0)
--- NOTE | 2019-11-10 09:19 | PM.PNORT ---
Progress Note: A&P Assessment and Plan (1) Closed intertrochanteric fracture of right hip: Qualifiers: Encounter type: initial encounter Fracture alignment: nondisplaced Qualified Code(s): S72.144A - Nondisplaced intertrochanteric fracture of right femur, initial encounter for closed fracture Code(s): S72.141A - Displaced intertrochanteric fracture of right femur, initial encounter for closed fracture Status: Acute Assessment and Plan: Nondisplaced right hip intertrochanteric fracture. Extreme high surgical risk. Will attempt non operative management. I explained that transfers will be quite painful at least for the 1st week or 2. She may touch toe weight bear for balance only. Pivot transfers only. We will repeat the radiographs early next week to assess for fracture displacement. Subjective Subjective Date/Time Seen: 11/10/19 09:19 Interval history: Patient is comfortable in the bed. We had a lengthy discussion again today. Yesterday I spoke with her and her at length. We reviewed the significant risks and challenges to her current situation. I spoke with the adult secondary education instructor at length. After careful consideration we agreed to continue conservative treatment for the hip fracture. The adult secondary education instructor felt that she needed to be on her Brilinta as soon as possible due to the recent stent placement. Postoperative bleeding could be expected, and significant risk for hematoma due to the need to restart Brilinta promptly. Today she is visibly upset about her situation understandably. Exam Narrative: Exam Narrative: alert and oriented x3. No distress. Oxygen by nasal cannula. Right thigh swelling mild. Minimal pedal edema. Neurologic status remains unchanged. Const: Orientation/consciousness: patient oriented x3 Extrem: General: capillary refill normal and no calf tenderness bilaterally Objective Data Vital Signs Vital Signs: Vital Signs - 24 hr 11/09/19 10:00 11/09/19 12:00 11/09/19 12:30 Temperature 36.3 C L Pulse Rate 104 H 104 H 104 H Respiratory Rate 20 Blood Pressure 160/92 H 176/96 H Pulse Oximetry 96 11/09/19 13:30 11/09/19 14:21 11/09/19 14:35 Temperature 36.6 C Pulse Rate 106 H 111 H 110 H Respiratory Rate 22 H 16 Blood Pressure 182/95 H 156/78 H Pulse Oximetry 100 11/09/19 15:36 11/09/19 16:00 11/09/19 19:42 Temperature Pulse Rate 110 H 98 Respiratory Rate 16 Blood Pressure Pulse Oximetry 96 11/09/19 19:49 11/09/19 20:00 11/09/19 22:00 Temperature 37.1 C Pulse Rate 106 H 116 H 112 H Respiratory Rate 18 20 Blood Pressure 137/90 Pulse Oximetry 96 11/10/19 00:00 11/10/19 00:06 11/10/19 02:00 Temperature 37.3 C Pulse Rate 107 H 122 H Respiratory Rate 22 H Blood Pressure 133/74 Pulse Oximetry 95 97 11/10/19 02:07 11/10/19 04:00 11/10/19 06:00 Temperature 36.8 C Pulse Rate 87 116 H 116 H Respiratory Rate 18 20 Blood Pressure 127/75 Pulse Oximetry 97 11/10/19 08:00 Temperature Pulse Rate 120 H Respiratory Rate Blood Pressure Pulse Oximetry Intake/Output Intake/Output: Intake & Output 11/07/19 11/08/19 11/09/19 11/10/19 23:59 23:59 23:59 23:59 Intake Total 1435 150 250 Output Total 200 450 650 Balance 1235 -300 -400 Meds/Results Medications: Active Medications Generic Name Dose Route Start Last Admin Trade Name Freq PRN Reason Stop Dose Admin Aspirin 81 mg 11/09/19 16:25 11/09/19 17:49 Aspirin Chewable PO 81 mg DAILY@0800 GLORIA Administration Dextrose 12.5 gm 11/08/19 14:24 Dextrose 50% Syringe IV PUSH PRN PRN Hypoglycemia Protocol Diphenhydramine HCl 25 mg 11/08/19 14:40 Benadryl Inj IV PUSH Q4H PRN Itching Famotidine 20 mg 11/09/19 09:00 11/09/19 19:58 Pepcid Iv IV PUSH 20 mg Q12HR GLORIA Administration Fentanyl Citrate 25 mcg 11/08/19 14:23 11/10/19 04:22 Sublimaze IV PUSH 25 mcg Q4H
[2019-11-10] MEDS: ASPIRIN 81 MG CHEWABLE TABLET PO (09:38)
[2019-11-10] MEDS: FAMOTIDINE 20 MG/2 ML VIAL IV PUSH (09:38)
[2019-11-10] MEDS: METOPROLOL SUCCINATE EXT REL 50 MG TABCR 150 MG PO (09:39)
[2019-11-10] MEDS: EUCERIN CREAM 120 GM JAR 1 APPLIC TOPICAL (09:39)
[2019-11-10] MEDS: TICAGRELOR 90 MG TABLET PO ×2 (09:39→17:45)
[2019-11-10] MEDS: FLUTICASONE PROPIONATE 0.05% NA SPR 16 GM BTL (*BKC) 2 SPRAY NASAL (09:41)
[2019-11-10] MEDS: MAGNESIUM OXIDE 200 MG TABLET PO ×2 (10:48→20:31)
--- NOTE | 2019-11-10 13:01 | PM.IMPN ---
Progress Note: A&P Assessment and Plan (1) Closed intertrochanteric fracture of right hip: Qualifiers: Encounter type: initial encounter Fracture alignment: nondisplaced Qualified Code(s): S72.144A - Nondisplaced intertrochanteric fracture of right femur, initial encounter for closed fracture Code(s): S72.141A - Displaced intertrochanteric fracture of right femur, initial encounter for closed fracture Status: Acute Assessment and Plan: Patient presents after a fall at home; imaging demonstrates a nondisplaced intertrochanteric right femur fracture. Dr Temple has been consulted - appreciate recommendations. Given her chronic respiratory failure with COPD, known coronary disease with recent stenting 06/2019, tachycardia and multiple other comorbidities she is a high risk surgical candidate. At this time patient has opted for nonsurgical management. Care coordination working on discharge planning. (2) Acute UTI: Code(s): N39.0 - Urinary tract infection, site not specified Status: Acute Assessment and Plan: Urine culture growing Klebsiella resistant to Rocephin; will switch to IV levaquin today. Blood cultures pending with no growth to date. (3) CAD (coronary artery disease): Code(s): I25.10 - Atherosclerotic heart disease of [place] coronary artery without angina pectoris Status: Chronic Assessment and Plan: History of cardiac catheterization 06/2019 with stent to RCA; NSTEMI 05/2017 found to have multivessel disease at that time was felt to be a poor candidate for CABG and underwent PCI with stents x 3. Troponins are mildly elevated with a flat profile. Review of old labs show elevated troponins on each admission this year. Appreciate cardiology consultation in this setting. She is a patient of Dr Farr's. Continue ASA and Brilinta. (4) CHF (congestive heart failure): Qualifiers: Heart failure chronicity: acute on chronic Heart failure type: unspecified Qualified Code(s): I50.9 - Heart failure, unspecified Code(s): I50.9 - Heart failure, unspecified Status: Chronic Assessment and Plan: Appears compensated at this time. Continue home medications. (5) HTN (hypertension): Code(s): I10 - Essential (primary) hypertension Status: Chronic Assessment and Plan: BP elevated likely secondary to pain but improved ; IV hydralazine available. Continue metoprolol, losartan, Lasix. Monitor BP and adjust treatment as needed. (6) COPD (chronic obstructive pulmonary disease): Qualifiers: COPD type: unspecified COPD Qualified Code(s): J44.9 - Chronic obstructive pulmonary disease, unspecified Code(s): J44.9 - Chronic obstructive pulmonary disease, unspecified Status: Chronic Assessment and Plan: Continue nebulized bronchodilator therapy. Continue her home supplemental O2. No respiratory distress this AM. (7) JOAQUIN (obstructive sleep apnea): Code(s): G47.33 - Obstructive sleep apnea (adult) (pediatric) Status: Chronic Assessment and Plan: CPAP. (8) Chronic hypoxemic respiratory failure: Code(s): J96.11 - Chronic respiratory failure with hypoxia Status: Acute Assessment and Plan: Tells me her home O2 requirement is 4L/min and sometimes uses 5L/min with activity. (9) Hyperlipidemia: Qualifiers: Hyperlipidemia type: mixed hyperlipidemia Qualified Code(s): E78.2 - Mixed hyperlipidemia Code(s): E78.5 - Hyperlipidemia, unspecified Status: Chronic Assessment and Plan: Statin held.
[2019-11-10 13:15] LABS: Glucose Point of Care 188 (65-105)
[2019-11-10 17:18] LABS: Glucose Point of Care 211 (65-105)
[2019-11-10] MEDS: metFORMIN HCL 500 MG TABLET PO (17:51)
[2019-11-10] MEDS: INSULIN ASPART (*BKC) 100 UNITS/ML SUB-Q (17:52)
[2019-11-10 21:23] LABS: Glucose Point of Care 144 (65-105)
[2019-11-11] VITALS (19 sets, daily range): BP systolic 138–153; BP diastolic 75–81; PULSE 101–119; RESP 20–22; TEMP 36.6–37; O2SAT 92–98; BMI 10.0
[2019-11-11] MEDS: IPRATROPIUM BR 0.02% INH SOLN 0.5 MG/2.5 ML VIAL INHALATION ×4 (02:26→22:11)
[2019-11-11 07:17] LABS: Basophils Percent Auto 0.4 % (0.2-1.2); Eosinophils Absolute Auto 0.7 K/mm3 (0-0.3); Eosinophils Percent Auto 9.4 % (0-4.4); Hemoglobin 11.3 g/dL (12.0-15.0); Immature Granulocyte Absolute 0.05 K/mm3 (0.00-0.031); Immature Granulocyte Percent A 0.7 % (0-0.5); Lymphocytes Absolute Auto 0.88 K/mm3 (0.9-3.2); Lymphocytes Percent Auto 12.7 % (18.3-44.2); Mean Corpuscular HGB Conc 32.3 g/dl (32-36); Mean Corpuscular Hemoglobin 28.2 pg (26-34); Mean Corpuscular Volume 87.3 fl (80-100); Mean Platelet Volume 10.3 fl (7.4-10.4); Monocytes Absolute Auto 0.4 K/mm3 (0.1-0.6); Monocytes Percent Auto 5.9 % (2.6-8.5); Neutrophils Absolute Auto 4.9 K/mm3 (1.3-6.7); Neutrophils Percent Auto 70.9 % (45.5-73.1); Platelet Count Result 175 k/mm3 (150-375); Red Blood Count 4.01 M/mm3 (4.2-5.4); Red Cell Distribution Width 13.7 % (11.5-14.5); White Blood Count 6.9 K/mm3 (4.5-10.0)
[2019-11-11 07:30] LABS: Anion Gap 7 mmol/L (8-16); Blood Urea Nitrogen 24 mg/dL (7-17); Calcium 9.4 mg/dL (8.4-10.2); Carbon Dioxide 30 mmol/L (22-30); Chloride 99 mmol/L (98-107); Estimated CRCL calculation 43 ml/min; Estimated Glomerular Filt Rate > 60; Glucose 195 mg/dL (65-105); Magnesium 1.7 mg/dL (1.6-2.3); Potassium 3.9 mmol/L (3.4-5.0); Sodium 136 mmol/L (137-145)
[2019-11-11] MEDS: ATORVASTATIN 10 MG TABLET PO (08:51)
[2019-11-11] MEDS: METOPROLOL SUCCINATE EXT REL 50 MG TABCR 150 MG PO (08:51)
[2019-11-11] MEDS: MAGNESIUM OXIDE 200 MG TABLET PO ×2 (08:52→21:10)
[2019-11-11] MEDS: FLUTICASONE PROPIONATE 0.05% NA SPR 16 GM BTL (*BKC) 2 SPRAY NASAL (08:52)
[2019-11-11] MEDS: POTASSIUM CHLORIDE 20 MEQ TABLET.ER PO (08:52)
[2019-11-11] MEDS: LOSARTAN POTASSIUM 50 MG TABLET PO (08:52)
[2019-11-11] MEDS: EUCERIN CREAM 120 GM JAR 1 APPLIC TOPICAL (08:52)
[2019-11-11] MEDS: TICAGRELOR 90 MG TABLET PO ×2 (08:52→18:04)
[2019-11-11] MEDS: predniSONE 5 MG TABLET PO (08:52)
[2019-11-11] MEDS: metFORMIN HCL 500 MG TABLET PO ×2 (08:52→18:04)
[2019-11-11] MEDS: ASPIRIN 81 MG CHEWABLE TABLET PO (08:52)
[2019-11-11 09:11] LABS: Glucose Point of Care 166 (65-105)
--- NOTE | 2019-11-11 09:25 | PCOTNOTE ---
Patient declined to participate in therapy session this date due to patient reporting to not feeling well and having extreme pain. Nursing staff notified.
--- NOTE | 2019-11-11 10:11 | PCOTNOTE ---
Patient refused therapy this date due to patient reporting to not feeling well and is in extreme pain, nursing staff notified.
--- NOTE | 2019-11-11 11:15 | PM.IMPN ---
Progress Note: A&P Assessment and Plan (1) Closed intertrochanteric fracture of right hip: Qualifiers: Encounter type: initial encounter Fracture alignment: nondisplaced Qualified Code(s): S72.144A - Nondisplaced intertrochanteric fracture of right femur, initial encounter for closed fracture Code(s): S72.141A - Displaced intertrochanteric fracture of right femur, initial encounter for closed fracture Status: Acute Assessment and Plan: Patient presents after a fall at home; imaging demonstrates a nondisplaced intertrochanteric right femur fracture. Dr Temple has been consulted - appreciate recommendations. Given her chronic respiratory failure with COPD, known coronary disease with recent stenting 06/2019, tachycardia and multiple other comorbidities she is a high risk surgical candidate. At this time patient has opted for nonsurgical management. Continue PT/OT. Care coordination working on discharge planning. (2) Acute UTI: Code(s): N39.0 - Urinary tract infection, site not specified Status: Acute Assessment and Plan: Urine culture growing Klebsiella aerogenes resistant to Rocephin. Switch to IV Levaquin 11/09, continue (day 2). Blood cultures pending with no growth to date. (3) CAD (coronary artery disease): Code(s): I25.10 - Atherosclerotic heart disease of [place] coronary artery without angina pectoris Status: Chronic Assessment and Plan: History of cardiac catheterization 06/2019 with stent to RCA; NSTEMI 05/2017 found to have multivessel disease at that time was felt to be a poor candidate for CABG and underwent PCI with stents x 3. Troponins on arrival were mildly elevated with a flat profile. Review of old labs show elevated troponins on each admission this year. Appreciate cardiology consultation in this setting. She is a patient of Dr Sullivan. Continue dual anti-platelet therapy with ASA and Brilinta. (4) CHF (congestive heart failure): Qualifiers: Heart failure chronicity: acute on chronic Heart failure type: unspecified Qualified Code(s): I50.9 - Heart failure, unspecified Code(s): I50.9 - Heart failure, unspecified Status: Chronic Assessment and Plan: Appears compensated at this time. Continue home medications. (5) HTN (hypertension): Code(s): I10 - Essential (primary) hypertension Status: Chronic Assessment and Plan: BP elevated likely secondary to pain but improved ; IV hydralazine available. Continue metoprolol, losartan, Lasix. Monitor BP and adjust treatment as needed. (6) COPD (chronic obstructive pulmonary disease): Qualifiers: COPD type: unspecified COPD Qualified Code(s): J44.9 - Chronic obstructive pulmonary disease, unspecified Code(s): J44.9 - Chronic obstructive pulmonary disease, unspecified Status: Chronic Assessment and Plan: Continue nebulized bronchodilator therapy. Continue her home supplemental O2. No respiratory distress this AM. (7) JOAQUIN (obstructive sleep apnea): Code(s): G47.33 - Obstructive sleep apnea (adult) (pediatric) Status: Chronic Assessment and Plan: CPAP. (8) Chronic hypoxemic respiratory failure: Code(s): J96.11 - Chronic respiratory failure with hypoxia Status: Acute Assessment and Plan: Tells me her home O2 requirement is 4L/min and sometimes uses 5L/min with activity. (9) Hyperlipidemia: Qualifiers: Hyperlipidemia type: mixed hyperlipidemia Qualified Code(s): E78.2 - Mixed hyperlipidemia Code(s): E78.5 - Hyperlipidemia,
[2019-11-11] MEDS: INSULIN ASPART (*BKC) 100 UNITS/ML SUB-Q (12:44)
[2019-11-11 14:10] LABS: Glucose Point of Care 202 (65-105)
[2019-11-11 18:33] LABS: Glucose Point of Care 122 (65-105)
--- NOTE | 2019-11-11 19:28 | PHAR ---
HOME MED VERIFIED ROFLUMILAST 500MCG TABLETS ONE TABLET DAILY
[2019-11-11] MEDS: dilTIAZem HCL 60 MG TABLET PO (21:10)
[2019-11-11 21:23] LABS: Glucose Point of Care 118 (65-105)
[2019-11-12] VITALS (19 sets, daily range): BP systolic 115–157; BP diastolic 59–84; PULSE 65–110; RESP 16–24; TEMP 36.5–36.7; O2SAT 90–95
[2019-11-12] MEDS: IPRATROPIUM BR 0.02% INH SOLN 0.5 MG/2.5 ML VIAL INHALATION ×4 (02:45→19:36)
[2019-11-12 06:37] LABS: Basophils Percent Auto 0.7 % (0.2-1.2); Eosinophils Absolute Auto 0.9 K/mm3 (0-0.3); Eosinophils Percent Auto 14.8 % (0-4.4); Hematocrit 34.2 % (37.0-47.0); Hemoglobin 10.9 g/dL (12.0-15.0); Immature Granulocyte Absolute 0.03 K/mm3 (0.00-0.031); Immature Granulocyte Percent A 0.5 % (0-0.5); Lymphocytes Absolute Auto 1.06 K/mm3 (0.9-3.2); Lymphocytes Percent Auto 17.4 % (18.3-44.2); Mean Corpuscular HGB Conc 31.9 g/dl (32-36); Mean Corpuscular Hemoglobin 27.7 pg (26-34); Monocytes Absolute Auto 0.5 K/mm3 (0.1-0.6); Monocytes Percent Auto 7.7 % (2.6-8.5); Neutrophils Absolute Auto 3.6 K/mm3 (1.3-6.7); Neutrophils Percent Auto 58.9 % (45.5-73.1); Platelet Count Result 177 k/mm3 (150-375); Red Blood Count 3.93 M/mm3 (4.2-5.4); Red Cell Distribution Width 13.5 % (11.5-14.5); White Blood Count 6.1 K/mm3 (4.5-10.0)
[2019-11-12 06:56] LABS: Anion Gap 7 mmol/L (8-16); Blood Urea Nitrogen 27 mg/dL (7-17); Calcium 9.5 mg/dL (8.4-10.2); Carbon Dioxide 30 mmol/L (22-30); Chloride 100 mmol/L (98-107); Estimated CRCL calculation 39 ml/min; Estimated Glomerular Filt Rate 55; Glucose 155 mg/dL (65-105); Magnesium 1.6 mg/dL (1.6-2.3); Potassium 4.1 mmol/L (3.4-5.0); Sodium 137 mmol/L (137-145)
[2019-11-12] MEDS: ASPIRIN 81 MG CHEWABLE TABLET PO (09:15)
[2019-11-12] MEDS: dilTIAZem HCL 60 MG TABLET PO ×3 (09:16→18:23)
[2019-11-12] MEDS: DULoxetine HCL 60 MG CAPSULE.DR PO (09:16)
[2019-11-12] MEDS: FLUOROMETHOLONE 0.1% OP SUSP 5 ML BTL 1 DROP EACH EYE (09:17)
[2019-11-12] MEDS: FLUTICASONE PROPIONATE 0.05% NA SPR 16 GM BTL (*BKC) 2 SPRAY NASAL (09:17)
[2019-11-12] MEDS: TICAGRELOR 90 MG TABLET PO ×2 (09:18→17:18)
[2019-11-12] MEDS: METOPROLOL SUCCINATE EXT REL 50 MG TABCR 150 MG PO (09:18)
[2019-11-12] MEDS: POTASSIUM CHLORIDE 20 MEQ TABLET.ER PO (09:18)
[2019-11-12] MEDS: ATORVASTATIN 10 MG TABLET PO (09:18)
[2019-11-12] MEDS: LOSARTAN POTASSIUM 50 MG TABLET PO (09:19)
[2019-11-12] MEDS: predniSONE 5 MG TABLET PO (09:19)
[2019-11-12] MEDS: MAGNESIUM OXIDE 200 MG TABLET PO ×2 (09:19→21:14)
[2019-11-12] MEDS: metFORMIN HCL 500 MG TABLET PO ×2 (09:19→17:18)
[2019-11-12 09:35] LABS: Glucose Point of Care 131 (65-105)
--- NOTE | 2019-11-12 10:46 | PM.IMPN ---
Progress Note: A&P Assessment and Plan (1) Closed intertrochanteric fracture of right hip: Qualifiers: Encounter type: initial encounter Fracture alignment: nondisplaced Qualified Code(s): S72.144A - Nondisplaced intertrochanteric fracture of right femur, initial encounter for closed fracture Code(s): S72.141A - Displaced intertrochanteric fracture of right femur, initial encounter for closed fracture Status: Acute Assessment and Plan: Patient presents after a fall at home; imaging demonstrates a nondisplaced intertrochanteric right femur fracture. Dr Temple has been consulted - appreciate recommendations. Given her chronic respiratory failure with COPD, known coronary disease with recent stenting 06/2019, tachycardia and multiple other comorbidities she is a high risk surgical candidate. At this time patient has opted for nonsurgical management. Continue PT/OT. Care coordination working on discharge planning. (2) Acute UTI: Code(s): N39.0 - Urinary tract infection, site not specified Status: Acute Assessment and Plan: Urine culture growing Klebsiella aerogenes resistant to Rocephin. Switch to IV Levaquin 11/09, continue (day 3). Blood cultures pending with no growth to date. (3) CAD (coronary artery disease): Code(s): I25.10 - Atherosclerotic heart disease of [place] coronary artery without angina pectoris Status: Chronic Assessment and Plan: History of cardiac catheterization 06/2019 with stent to RCA; NSTEMI 05/2017 found to have multivessel disease at that time was felt to be a poor candidate for CABG and underwent PCI with stents x 3. Troponins on arrival were mildly elevated with a flat profile. Review of old labs show elevated troponins on each admission this year. Appreciate cardiology consultation in this setting. She is a patient of Dr Sullivan. Continue dual anti-platelet therapy with ASA and Brilinta. (4) CHF (congestive heart failure): Qualifiers: Heart failure chronicity: acute on chronic Heart failure type: unspecified Qualified Code(s): I50.9 - Heart failure, unspecified Code(s): I50.9 - Heart failure, unspecified Status: Chronic Assessment and Plan: Appears compensated at this time. Continue home medications. (5) HTN (hypertension): Code(s): I10 - Essential (primary) hypertension Status: Chronic Assessment and Plan: BP elevated likely secondary to pain; IV hydralazine available. Continue metoprolol, losartan, Lasix. Monitor BP and adjust treatment as needed. (6) COPD (chronic obstructive pulmonary disease): Qualifiers: COPD type: unspecified COPD Qualified Code(s): J44.9 - Chronic obstructive pulmonary disease, unspecified Code(s): J44.9 - Chronic obstructive pulmonary disease, unspecified Status: Chronic Assessment and Plan: Continue nebulized bronchodilator therapy. Continue her home supplemental O2. No respiratory distress this AM. (7) JOAQUIN (obstructive sleep apnea): Code(s): G47.33 - Obstructive sleep apnea (adult) (pediatric) Status: Chronic Assessment and Plan: CPAP. (8) Chronic hypoxemic respiratory failure: Code(s): J96.11 - Chronic respiratory failure with hypoxia Status: Acute Assessment and Plan: Tells me her home O2 requirement is 4L/min and sometimes uses 5L/min with activity. (9) Hyperlipidemia: Qualifiers: Hyperlipidemia type: mixed hyperlipidemia Qualified Code(s): E78.2 - Mixed hyperlipidemia Code(s): E78.5 - Hyperlipidemia, unspecified
--- NOTE | 2019-11-12 11:07 | PM.PNPUL ---
Progress Note: A&P Assessment and Plan (1) ILD (interstitial lung disease): Code(s): J84.9 - Interstitial pulmonary disease, unspecified Status: Acute (2) COPD (chronic obstructive pulmonary disease): Qualifiers: COPD type: unspecified COPD Qualified Code(s): J44.9 - Chronic obstructive pulmonary disease, unspecified Code(s): J44.9 - Chronic obstructive pulmonary disease, unspecified Status: Chronic Assessment and Plan: COPD seems to be biggest cause of her current dyspnea. - Educated her about daily use of Anoro Ellipta and not as needed. - Will add Pulmicort 0.5 mg bid while in hospital - Once discharged, she should be switched from Anoro to Trelegy Ellipta 100/62.5/25 mcg 1 puff daily. - Would caution use of benzos and narcotics together as she has increased risk of hypercapnic respiratory failure Subjective Date/time seen: 11/12/19 11:07 Interval history: 69 y/o female with severe COPD, mild ILD, RA is on rehab floor. She's a bit confused this morning when asked questions. Her was able to help. She's on Anoro Ellipta 62.5/25 mcg 1 puff daily but admits to only taking it as needed as opposed to scheduled. She also has albuterol as needed. She's been more short of breath since falling but denies any chest pain or infectious symptoms. She's on 4 liters oxygen per nasal cannula Review of Systems Review of Systems: All systems reviewed & are unremarkable except as noted in HPI and below Exam Narrative: Exam Narrative: sleepy in the interview Const: General: comfortable and no acute distress Neck: Neck: no JVD Resp: Auscultation: diminished lung sounds Other: pursed lip breathing Cardio: Rate: regular rate Rhythm: regular rhythm Heart sounds: S1 normal heart sound present, S2 normal heart sound present and no murmurs Skin: General skin exam: normal color Neuro: General: No gait normal Extrem: General: no clubbing, cyanosis or edema Objective Data Vital Signs Vital Signs: Vital Signs - 24 hr 11/11/19 12:00 11/11/19 13:47 11/11/19 13:55 Temperature Pulse Rate 101 H 104 H 103 H Respiratory Rate 20 20 Blood Pressure Pulse Oximetry 11/11/19 14:00 11/11/19 16:00 11/11/19 20:00 Temperature 36.6 C Pulse Rate 104 H 108 H 102 H Respiratory Rate 20 20 Blood Pressure 153/75 H Pulse Oximetry 98 96 11/11/19 22:00 11/11/19 22:11 11/11/19 22:16 Temperature 37.0 C Pulse Rate 105 H 102 H 103 H Respiratory Rate 20 20 Blood Pressure 142/81 H Pulse Oximetry 93 96 11/11/19 22:25 11/12/19 00:00 11/12/19 02:00 Temperature 36.7 C Pulse Rate 102 H 89 92 Respiratory Rate 20 Blood Pressure 143/75 H Pulse Oximetry 96 95 11/12/19 02:45 11/12/19 02:54 11/12/19 04:00 Temperature Pulse Rate 103 H 101 H 101 H Respiratory Rate 20 Blood Pressure Pulse Oximetry 11/12/19 06:00 11/12/19 09:18 11/12/19 09:38 Temperature 36.5 C Pulse Rate 102 H 108 H 110 H Respiratory Rate 20 24 H Blood Pressure 157/84 H Pulse Oximetry 94 11/12/19 09:40 11/12/19 09:48 Temperature Pulse Rate 108 H Respiratory Rate 24 H Blood Pressure Pulse Oximetry 90 Intake/Output Intake/Output: Intake & Output 11/09/19 11/10/19 11/11/19 11/12/19 23:59 23:59 23:59 23:59 Intake Total 150 1000 750 400 Output Total 450 900 450 200 Balance -300 100 300 200 Meds/Results Medications: Active Medications Generic Name Dose Route Start Last Admin Trade Name Freq PRN Reason Stop Dose Admin Hydrocodone Bitart/Acetaminophen 1 tab 11/10/19 12:04 11/12/19 05:50 [place] 5-325 Mg PO 1 tab Q6H PRN Administration Pain Rated 4-6 Aspirin 81 mg 11/09/19 16:25 11/12/19 09:15 Aspirin Chewable PO 81 mg DAILY@0800 GLORIA Administration Atorvastatin Calcium 10 mg 11/11/19 09:00 11/12/19 09:18 Lipitor PO 10 mg DAILY GLORIA Administration Budesonide 0.5 mg 11/12/19 11:10 Pulmicort Respule
[2019-11-12] MEDS: EUCERIN CREAM 120 GM JAR 1 APPLIC TOPICAL (11:31)
[2019-11-12 13:16] LABS: Glucose Point of Care 179 (65-105)
[2019-11-12] MEDS: BUDESONIDE RESPULE NEB 0.5 MG/2 ML AMP INHALATION ×2 (14:38→19:37)
[2019-11-12] MEDS: MAGNESIUM SULF 2 GM/WATER 50ML 2 GM/50 ML BAG IVPB (17:03)
[2019-11-12 17:31] LABS: Glucose Point of Care 122 (65-105)
--- NOTE | 2019-11-12 20:00 | PC.NURSE ---
Daughter called and update given.
[2019-11-12 23:41] LABS: Glucose Point of Care 134 (65-105)
[2019-11-13] VITALS (14 sets, daily range): BP systolic 119–137; BP diastolic 62–70; PULSE 70–93; RESP 18–20; TEMP 36.1–36.9; O2SAT 93–98
[2019-11-13] MEDS: IPRATROPIUM BR 0.02% INH SOLN 0.5 MG/2.5 ML VIAL INHALATION ×4 (02:26→20:41)
[2019-11-13 06:03] LABS: Basophils Percent Auto 0.7 % (0.2-1.2); Eosinophils Percent Auto 15.9 % (0-4.4); Hematocrit 32.9 % (37.0-47.0); Hemoglobin 10.6 g/dL (12.0-15.0); Immature Granulocyte Absolute 0.04 K/mm3 (0.00-0.031); Immature Granulocyte Percent A 0.7 % (0-0.5); Lymphocytes Absolute Auto 1.21 K/mm3 (0.9-3.2); Lymphocytes Percent Auto 20.2 % (18.3-44.2); Mean Corpuscular HGB Conc 32.2 g/dl (32-36); Mean Corpuscular Hemoglobin 28.1 pg (26-34); Mean Corpuscular Volume 87.3 fl (80-100); Mean Platelet Volume 9.9 fl (7.4-10.4); Monocytes Absolute Auto 0.4 K/mm3 (0.1-0.6); Neutrophils Absolute Auto 3.3 K/mm3 (1.3-6.7); Neutrophils Percent Auto 55.5 % (45.5-73.1); Platelet Count Result 178 k/mm3 (150-375); Red Blood Count 3.77 M/mm3 (4.2-5.4); Red Cell Distribution Width 13.5 % (11.5-14.5)
[2019-11-13 06:21] LABS: Anion Gap 5 mmol/L (8-16); Blood Urea Nitrogen 31 mg/dL (7-17); Calcium 9.6 mg/dL (8.4-10.2); Carbon Dioxide 31 mmol/L (22-30); Chloride 102 mmol/L (98-107); Estimated CRCL calculation 39 ml/min; Estimated Glomerular Filt Rate 55; Glucose 126 mg/dL (65-105); Magnesium 1.8 mg/dL (1.6-2.3); Potassium 4.1 mmol/L (3.4-5.0); Sodium 138 mmol/L (137-145)
[2019-11-13] MEDS: METOPROLOL SUCCINATE EXT REL 50 MG TABCR 150 MG PO (08:32)
[2019-11-13] MEDS: FLUOROMETHOLONE 0.1% OP SUSP 5 ML BTL 1 DROP EACH EYE (08:33)
[2019-11-13] MEDS: FLUTICASONE PROPIONATE 0.05% NA SPR 16 GM BTL (*BKC) 2 SPRAY NASAL (08:33)
[2019-11-13] MEDS: dilTIAZem HCL 60 MG TABLET PO ×3 (08:33→17:30)
[2019-11-13] MEDS: DULoxetine HCL 60 MG CAPSULE.DR PO (08:33)
[2019-11-13] MEDS: ATORVASTATIN 10 MG TABLET PO (08:33)
[2019-11-13] MEDS: ASPIRIN 81 MG CHEWABLE TABLET PO (08:33)
[2019-11-13] MEDS: POTASSIUM CHLORIDE 20 MEQ TABLET.ER PO (08:33)
[2019-11-13] MEDS: MAGNESIUM OXIDE 200 MG TABLET PO ×2 (08:33→20:33)
[2019-11-13] MEDS: predniSONE 5 MG TABLET PO (08:34)
[2019-11-13] MEDS: LOSARTAN POTASSIUM 50 MG TABLET PO (08:34)
[2019-11-13] MEDS: TICAGRELOR 90 MG TABLET PO ×2 (08:34→17:31)
[2019-11-13] MEDS: metFORMIN HCL 500 MG TABLET PO ×2 (08:34→17:26)
[2019-11-13] MEDS: BUDESONIDE RESPULE NEB 0.5 MG/2 ML AMP INHALATION ×2 (09:30→20:40)
[2019-11-13 09:31] LABS: Glucose Point of Care 133 (65-105)
--- NOTE | 2019-11-13 10:20 | PM.PNPUL ---
Progress Note: A&P Assessment and Plan (1) ILD (interstitial lung disease): Code(s): J84.9 - Interstitial pulmonary disease, unspecified Status: Acute (2) COPD (chronic obstructive pulmonary disease): Qualifiers: COPD type: unspecified COPD Qualified Code(s): J44.9 - Chronic obstructive pulmonary disease, unspecified Code(s): J44.9 - Chronic obstructive pulmonary disease, unspecified Status: Chronic Assessment and Plan: COPD seems to be biggest cause of her current dyspnea. - Educated her about daily use of Anoro Ellipta and not as needed. - Will add Pulmicort 0.5 mg bid while in hospital - Once discharged, she should be switched from Anoro to Trelegy Ellipta 100/62.5/25 mcg 1 puff daily. - Would caution use of benzos and narcotics together as she has increased risk of hypercapnic respiratory failure Subjective Date/time seen: 11/13/19 10:20 Interval history: No complaints of dyspnea today only pain with ambulation Review of Systems Review of Systems: All systems reviewed & are unremarkable except as noted in HPI and below Exam Narrative: Exam Narrative: sleepy in the interview Const: General: comfortable and no acute distress Neck: Neck: no JVD Resp: Auscultation: diminished lung sounds Other: pursed lip breathing Cardio: Rate: regular rate Rhythm: regular rhythm Heart sounds: S1 normal heart sound present, S2 normal heart sound present and no murmurs Skin: General skin exam: normal color Neuro: General: No gait normal Extrem: General: no clubbing, cyanosis or edema Objective Data Vital Signs Vital Signs: Vital Signs - 24 hr 11/12/19 12:00 11/12/19 14:48 11/12/19 14:56 Temperature Pulse Rate 82 100 98 Respiratory Rate 20 20 Blood Pressure Pulse Oximetry 11/12/19 16:00 11/12/19 19:40 11/12/19 19:58 Temperature Pulse Rate 79 72 73 Respiratory Rate 16 16 Blood Pressure Pulse Oximetry 11/12/19 20:00 11/12/19 22:00 11/13/19 00:00 Temperature 36.6 C Pulse Rate 65 78 70 Respiratory Rate 20 Blood Pressure 115/59 L Pulse Oximetry 95 94 11/13/19 02:28 11/13/19 04:00 11/13/19 06:00 Temperature 36.9 C Pulse Rate 76 80 83 Respiratory Rate 18 18 Blood Pressure 137/70 Pulse Oximetry 96 11/13/19 08:00 11/13/19 08:32 Temperature 36.1 C L Pulse Rate 91 92 Respiratory Rate 18 Blood Pressure 119/62 Pulse Oximetry 98 Intake/Output Intake/Output: Intake & Output 11/10/19 11/11/19 11/12/19 11/13/19 23:59 23:59 23:59 23:59 Intake Total 1000 750 840 470 Output Total 900 450 350 300 Balance 100 300 490 170 Meds/Results Medications: Active Medications Generic Name Dose Route Start Last Admin Trade Name Freq PRN Reason Stop Dose Admin Hydrocodone Bitart/Acetaminophen 1 tab 11/10/19 12:04 11/13/19 08:40 [place] 5-325 Mg PO 1 tab Q6H PRN Administration Pain Rated 4-6 Aspirin 81 mg 11/09/19 16:25 11/13/19 08:33 Aspirin Chewable PO 81 mg DAILY@0800 GLORIA Administration Atorvastatin Calcium 10 mg 11/11/19 09:00 11/13/19 08:33 Lipitor PO 10 mg DAILY GLORIA Administration Budesonide 0.5 mg 11/12/19 11:10 11/13/19 09:30 Pulmicort Respule Neb INHALATION 0.5 mg Q12HRT GLORIA Administration Calcium Carbonate 200 mg 11/10/19 12:03 Tums PO Q6H PRN Indigestion Dextrose 12.5 gm 11/08/19 14:24 Dextrose 50% Syringe IV PUSH PRN PRN Hypoglycemia Protocol Diltiazem HCl 60 mg 11/11/19 18:10 11/13/19 08:33 Cardizem Tab PO 60 mg TID GLORIA Administration Diphenhydramine HCl 25 mg 11/08/19 14:40 Benadryl Inj IV PUSH Q4H PRN Itching Duloxetine HCl 60 mg 11/12/19 09:00 11/13/19 08:33 Cymbalta PO 60 mg DAILY GLORIA Administration Fentanyl Citrate 25 mcg 11/08/19 14:23 11/11/19 05:02 Sublimaze IV PUSH 25 mcg Q4H PRN Administration Pain Rated 7-10 Fluorometholone 1 drop 10/29
[2019-11-13] MEDS: EUCERIN CREAM 120 GM JAR 1 APPLIC TOPICAL (12:08)
[2019-11-13 12:31] LABS: Glucose Point of Care 203 (65-105)
[2019-11-13] MEDS: INSULIN ASPART (*BKC) 100 UNITS/ML SUB-Q (12:47)
[2019-11-13] MEDS: ONDANSETRON HCL ODT 4 MG TABLET PO (13:11)
[2019-11-13] MEDS: CALCIUM CARBONATE (TUMS) 500 MG (200 MG ELEMENTAL) PO (13:11)
[2019-11-13 13:17] LABS: SARS-CoV-2 RNA PCR Negative
--- NOTE | 2019-11-13 13:25 | PM.DS ---
DS: Admitting Diagnosis Admitting Diagnosis Admitting Diagnosis: LOWER LEG WEAKNESS DS: Discharge Diagnosis Discharge Diagnosis (1) Closed intertrochanteric fracture of right hip: Qualifiers: Encounter type: initial encounter Fracture alignment: nondisplaced Qualified Code(s): S72.144A - Nondisplaced intertrochanteric fracture of right femur, initial encounter for closed fracture Code(s): S72.141A - Displaced intertrochanteric fracture of right femur, initial encounter for closed fracture Status: Acute Assessment and Plan: -----Patient presents after a fall at home; imaging demonstrates a nondisplaced intertrochanteric right femur fracture. Dr Temple has been consulted Given her chronic respiratory failure with COPD, known coronary disease with recent stenting 06/2019, tachycardia and multiple other comorbidities she is a high risk surgical candidate. At this time patient has opted for nonsurgical management. Continue PT/OT at the swing bed. She is going to follow up with Dr. Temple. (2) Acute UTI: Code(s): N39.0 - Urinary tract infection, site not specified Status: Acute Assessment and Plan: -----Urine culture growing Klebsiella aerogenes resistant to Rocephin. Continue Levaquin 11/09. Blood cultures pending with no growth to date and will be monitored until finilized. . (3) CAD (coronary artery disease): Code(s): I25.10 - Atherosclerotic heart disease of [place] coronary artery without angina pectoris Status: Chronic Assessment and Plan: ----History of cardiac catheterization 06/2019 with stent to RCA; NSTEMI 05/2017 found to have multivessel disease at that time was felt to be a poor candidate for CABG and underwent PCI with stents x 3. Troponins on arrival were mildly elevated with a flat profile. Review of old labs show elevated troponins on each admission this year. Cardiology saw the pt and did not recommend any additional work up. Continue dual anti-platelet therapy with ASA and Brilinta. (4) CHF (congestive heart failure): Qualifiers: Heart failure chronicity: acute on chronic Heart failure type: unspecified Qualified Code(s): I50.9 - Heart failure, unspecified Code(s): I50.9 - Heart failure, unspecified Status: Chronic Assessment and Plan: ----Appears compensated at this time. Continue home medications. (5) HTN (hypertension): Code(s): I10 - Essential (primary) hypertension Status: Chronic Assessment and Plan: -----Last bp 125/63. BP elevated throughout stay likely secondary to pain; Continue metoprolol, losartan, Lasix. (6) COPD (chronic obstructive pulmonary disease): Qualifiers: COPD type: unspecified COPD Qualified Code(s): J44.9 - Chronic obstructive pulmonary disease, unspecified Code(s): J44.9 - Chronic obstructive pulmonary disease, unspecified Status: Chronic Assessment and Plan: -----No acute illness (7) JOAQUIN (obstructive sleep apnea): Code(s): G47.33 - Obstructive sleep apnea (adult) (pediatric) Status: Chronic Assessment and Plan: -----Continue CPAP, which is at bedside (8) Chronic hypoxemic respiratory failure: Code(s): J96.11 - Chronic respiratory failure with hypoxia Status: Acute Assessment and Plan: -----Tells me her home O2 requirement is 4L/min and sometimes uses 5L/min with activity. (9) Hyperlipidemia: Qualifiers: Hyperlipidemia type: mixed hyperlipidemia Qualified Code(s): E78.2 - Mixed hyperlipidemia Code(s): E78.5 - Hyperlipidemia, unspecified Status: Chronic Assessment and Plan: -----Resume statin therapy. (10) DM2 (diabetes mellitus, type 2): Qualifiers: Diabetes mellitus ocean [place] intermediary insulin use: without ocean transportation intermediary use Diabetes mellitus complication status: without complication Qualified Code(s): E11.9 - Typ
--- NOTE | 2019-11-13 16:27 | PM.PNORT ---
Progress Note: A&P Additional Plan Nondisplaced intertrochanteric hip fracture. Mobilizing well with physical therapy. Pain control improved. Will check an x-ray today prior to discharge. If the fracture remains nondisplaced she may be discharged to the [facility] swing bed. Will obtain x-rays weekly. Subjective Subjective Date/Time Seen: 11/13/19 16:27 Interval history: Pain well controlled. Mobilized 2 times today with physical therapy. Spirits up. Exam Narrative: Exam Narrative: Pleasant, alert. No deformity. No distal edema. Wiggles toes. Neurologic status intact. No hematoma. Objective Data Vital Signs Vital Signs: Vital Signs - 24 hr 11/12/19 19:40 11/12/19 19:58 11/12/19 20:00 Temperature Pulse Rate 72 73 65 Respiratory Rate 16 16 Blood Pressure Pulse Oximetry 95 11/12/19 22:00 11/13/19 00:00 11/13/19 02:28 Temperature 36.6 C Pulse Rate 78 70 76 Respiratory Rate 20 18 Blood Pressure 115/59 L Pulse Oximetry 94 11/13/19 04:00 11/13/19 06:00 11/13/19 08:00 Temperature 36.9 C 36.1 C L Pulse Rate 80 83 91 Respiratory Rate 18 18 Blood Pressure 137/70 119/62 Pulse Oximetry 96 98 11/13/19 08:32 11/13/19 09:25 11/13/19 09:35 Temperature Pulse Rate 92 78 76 Respiratory Rate 20 20 Blood Pressure Pulse Oximetry 96 11/13/19 14:00 11/13/19 14:10 Temperature Pulse Rate 78 78 Respiratory Rate 20 20 Blood Pressure Pulse Oximetry Intake/Output Intake/Output: Intake & Output 11/10/19 11/11/19 11/12/19 11/13/19 23:59 23:59 23:59 23:59 Intake Total 1000 750 840 590 Output Total 900 450 350 300 Balance 100 300 490 290 Meds/Results Medications: Active Medications Generic Name Dose Route Start Last Admin Trade Name Freq PRN Reason Stop Dose Admin Aspirin 81 mg 11/09/19 16:25 11/13/19 08:33 Aspirin Chewable PO 81 mg DAILY@0800 GLORIA Administration Atorvastatin Calcium 10 mg 11/11/19 09:00 11/13/19 08:33 Lipitor PO 10 mg DAILY GLORIA Administration Budesonide 0.5 mg 11/12/19 11:10 11/13/19 09:30 Pulmicort Respule Neb INHALATION 0.5 mg Q12HRT GLORIA Administration Calcium Carbonate 200 mg 11/10/19 12:03 11/13/19 13:11 Tums PO 200 mg Q6H PRN Administration Indigestion Dextrose 12.5 gm 11/08/19 14:24 Dextrose 50% Syringe IV PUSH PRN PRN Hypoglycemia Protocol Diltiazem HCl 60 mg 11/11/19 18:10 11/13/19 14:44 Cardizem Tab PO 60 mg TID GLORIA Administration Diphenhydramine HCl 25 mg 11/08/19 14:40 Benadryl Inj IV PUSH Q4H PRN Itching Duloxetine HCl 60 mg 11/12/19 09:00 11/13/19 08:33 Cymbalta PO 60 mg DAILY GLORIA Administration Fluorometholone 1 drop 11/12/19 09:00 11/13/19 08:33 Fml Liquifilm 0.1% Op Susp EACH EYE 1 drop DAILY GLORIA Administration Fluticasone Propionate 2 spray 11/09/19 07:50 11/13/19 08:33 Flonase 0.05% Nasal [place] NASAL 2 spray QAM GLORIA Administration Glucagon 1 mg 11/08/19 14:24 Glucagon For Inj IM PRN PRN Hypoglycemia Protocol Glucose 15 gm 11/08/19 14:24 Glutose 15 PO PRN PRN Hypoglycemia Protocol Hydralazine HCl 10 mg 11/09/19 12:37 11/10/19 00:07 Apresoline Hcl Inj IV PUSH 10 mg Q6H PRN Administration Blood Pressure - High Dextrose 1,000 mls @ 100 mls/hr 11/08/19 14:24 Dextrose 5% 1,000 Ml IVPB PRN PRN Hypoglycemia Protocol Lactated Ringer's 1,000 mls @ 30 mls/hr 11/09/19 07:20 Lr - Lactated Ringers Iv IV CONT .Q24H GLORIA Insulin Aspart 4 - 8 units 11/11/19 12:00 11/13/19 12:47 Novolog SUB-Q 4 units TIDWM GLORIA Administration Protocol Ipratropium [place] 0.5 mg 11/09/19 14:00 11/13/19 14:01 Atrovent Neb INHALATION 0.5 mg Q6HRT GLORIA Administration Levalbuterol HCl 1.25 mg 11/09/19 14:00 11/13/19 14:00 Xopenex 1.25 Mg/0.5 Ml INHALATION 1.25 mg Q6HR
[2019-11-13 19:12] LABS: Glucose Point of Care 131 (65-105)
[2019-11-13 23:14] LABS: Glucose Point of Care 134 (65-105)
[2019-11-14] VITALS: BP 157/77; PULSE 77; RESP 18; TEMP 36.7; O2SAT 94
--- NOTE | 2019-11-16 09:08 | PC.NURSE ---
Blood cx are negative
== END 2019-11-14 01:30 | disposition swing bed (61) | DRG 536 ==
LOC: ANHED 11:40 → ANH3MEDSUR 11:55
PROVIDERS: Nurse Practitioner; Physician Assistant; Admitting Provider Internal Medicine; Emergency Provider Emergency Medicine; Visit Provider Physician Assistant
DX: S72.144A Nondisplaced intertrochanteric fracture of right femur, initial encounter for closed fracture (principal); J96.11 Chronic respiratory failure with hypoxia; N39.0 Urinary tract infection, site not specified; I47.1 Supraventricular tachycardia; J84.9 Interstitial pulmonary disease, unspecified; I27.20 Pulmonary hypertension, unspecified; E11.42 Type 2 diabetes mellitus with diabetic polyneuropathy; B96.89 Other specified bacterial agents as the cause of diseases classified elsewhere; Z23 Encounter for immunization; D64.9 Anemia, unspecified; E78.2 Mixed hyperlipidemia; Z20.828 Contact with and (suspected) exposure to other viral communicable diseases; Z99.81 Dependence on supplemental oxygen; I11.0 Hypertensive heart disease with heart failure; I50.9 Heart failure, unspecified; J43.9 Emphysema, unspecified; R79.89 Other specified abnormal findings of blood chemistry; R07.9 Chest pain, unspecified; I25.10 Atherosclerotic heart disease of native coronary artery without angina pectoris; I48.0 Paroxysmal atrial fibrillation; I25.2 Old myocardial infarction; M06.9 Rheumatoid arthritis, unspecified; G47.33 Obstructive sleep apnea (adult) (pediatric); K21.9 Gastro-esophageal reflux disease without esophagitis; M47.892 Other spondylosis, cervical region; M47.895 Other spondylosis, thoracolumbar region; W01.0XXA Fall on same level from slipping, tripping and stumbling without subsequent striking against object, initial encounter; Z79.84 Long term (current) use of oral hypoglycemic drugs; Z79.899 Other long term (current) drug therapy; Z87.891 Personal history of nicotine dependence; Z98.41 Cataract extraction status, right eye; Z98.42 Cataract extraction status, left eye
CPT/HCPCS: 36415; 51701; 70450; 71045; 72125; 72128; 72131; 73502; 73562; 80048; 80053; 81001; 83036; 83735; 84443; 84484; 85025; 85610; 85730; 86850; 86900; 86901; 87040; 87077; 87086; 87088; 87186; 87635; 90471; 90686; 93005; 94640; 94660; 96365; 96367; 96375; 96376; 97110; 97161; 97166; 97530; 97535; 99285; A9270; C9803; G0008; G0378; J0131; J0360; J0696; J1170; J1200; J1815; J1956; J2060; J2270; J2405; J3010; J3475; J7040; J7512; L0140; U0003

== ENCOUNTER 2019-11-14 02:28 | Inpatient (IN) | payer MEDICARE, SELFPAY ==
--- NOTE | ~2019-11-14 | XR_ITS ---
XR chest 1V portable 11/24/2019 08:00 Indication: Shortness of breath. History of COPD. Procedure: AP portable chest Comparison: Comparison to multiple prior studies sequentially, with oldest reviewed study dated 07/15. Findings: Coarse interstitial changes primarily affecting the lung bases unchanged. The lungs are hyp erinflated which is consistent with, but not diagnostic of chronic obstructive pulmonary disease. No acute focal pneumonia, edema or effusion. No acute osseous abnormality. There are healed right rib fr actures. Impression: 1: No acute cardiopulmonary disease. Reviewed, dictated and finalized at location A. Impression: 1: No acute cardiopulmonary disease.
--- NOTE | ~2019-11-14 | XR_ITS ---
EXAMINATION: XR hip RT min 2V DATE: 11/19/2019 09:26 INDICATION: Intertrochanteric fracture of proximal right femur. TECHNIQUE: 2 views of right hip were obtained. COMPARISON: Right hip radiographs 11/13/2019 FINDINGS: There is an intertrochanteric fracture of proximal right femur. The distal fracture fragmen t demonstrates near-anatomic alignment. Right hip joint space is normal. IMPRESSION: 1. Stable intertrochanteric fracture of proximal right femur. Reviewed, dictated and finalized at location A.
--- NOTE | ~2019-11-14 | CT_ITS ---
EXAMINATION: CTA chest PE protocol EXAM DATE: 11/20/2019 10:42 INDICATION: Positive d-dimer. Confusion, right hip fracture. Dilated pulmonary arteries. TECHNIQUE: Spiral CTA of the chest (pulmonary arteries) was performed with 100 cc Omnipaque 350 intr avenous contrast injection. Images were acquired during the pulmonary arterial phase. Coronal maxi mum intensity projection 3D-reconstructions were created by the technologist on dedicated workstation . Axial, coronal and sagittal reformatted images were reviewed. The dose-length product (DLP) for t his examination was 237.68 mGy-cm. The exposure was tailored according to patient size (auto mA exp osure control), and iterative reconstruction (ASIR) was used as additional dose reduction technique. There is no prior study for comparison. FINDINGS: The main, central pulmonary arteries are dilated which can indicate elevated pulmonary jesusita rial pressure, pulmonary arterial hypertension. Pulmonary arteries are well opacified and without in traluminal filling defects. No thoracic aortic dissection. There is extensive thoracic aortic calci fied and noncalcified ulcerating plaques, with descending thoracic aortic ectasia and small regions o f aneurysmal dilation. At the aortic hiatus caliber is 3.3 cm. There is moderate to severe emphysema. No acute airspace disease. Moderate narrowing of the left subclavian artery origin. There are no pleural or pericardial effusions. Tracheobronchial tree is patent. There is no media stinal, hilar or axillary lymphadenopathy. There is no pneumothorax. Heart normal in size. Ther e is moderate coronary arterial calcification, arterial sclerosis. There are cholecystectomy clips. There is thoracic spondylosis without osteoblastic or osteolytic lesions identified. IMPRESSION: 1. Dilated but nonthrombosed pulmonary arteries. Pulmonary arterial hypertension. 2. Aortic ectasia, descending thoracic aortic regions of aneurysmal dilation. 3. Moderate to severe emphysema. Reviewed, dictated and finalized at location B. IMPRESSION: 1. Dilated but nonthrombosed pulmonary arteries. Pulmonary arterial hypertensi on. 2. Aortic ectasia, descending thoracic aortic regions of aneurysmal dilation. 3. Moderate to severe emphysema.
--- NOTE | ~2019-11-14 | XR_ITS ---
EXAMINATION: XR chest 1V portable EXAM DATE: 11/19/2019 13:19 INDICATION: Confusion. TECHNIQUE: Portable AP frontal chest x-ray was obtained. Comparison is made to prior examination from 11/08/2019. FINDINGS: Moderate chronic hyperinflation. Some chronic prominent reticulation. No confluent consolid ation, pneumothorax or pleural effusion suspected. There are bony degenerative changes. There is aort ic arteriosclerosis. There are cholecystectomy clips. IMPRESSION: 1. No acute cardiac pulmonary findings. Reviewed, dictated and finalized at location B.
--- NOTE | ~2019-11-14 | XR_ITS ---
XR hip RT min 2V DATE: 11/26/2019 10:42 INDICATION: Hip fracture TECHNIQUE: AP and crosstable lateral views of right hip COMPARISON: 11/19/2019 right hip FINDINGS: There is a comminuted intertrochanteric fracture of the right proximal femur, with minimal displacement or angulation, no significant change since 11/19/2019. IMPRESSION: Stable right intertrochanteric hip fracture since 11/19/2019 Reviewed, dictated and finalized at location B.
--- NOTE | ~2019-11-14 | XR_ITS ---
XR hand RT min 3V, XR hand LT min 3V 11/24/2019 08:00 INDICATION: Hand pain after fall PROCEDURE: 3 views each hand COMPARISON: 01/11/2011 FINDINGS: Fracture, dislocation or subluxation is not identified. There is a punctate radiodensity ad jacent to the right second middle phalanx possibly foreign body. No acute fracture or traumatic malal ignment. Vascular calcifications are noted. The soft tissues appear within normal limits. IMPRESSION: 1: NO ACUTE BONE OR JOINT ABNORMALITY IDENTIFIED. Reviewed, dictated and finalized at location A. IMPRESSION: 1: NO ACUTE BONE OR JOINT ABNORMALITY IDENTIFIED.
--- NOTE | ~2019-11-14 | CT_ITS ---
EXAMINATION: CT brain wo con DATE: 11/24/2019 11:30 INDICATION: Confusion. TECHNIQUE: Computed tomography (CT) of the head was performed without intravenous contrast. The dose- length product was 605.33 mGy-cm. The mA was adjusted according to patient size. Iterative reconstruc tion technique was employed. COMPARISON: CT dated 11/08/2019 FINDINGS: No acute intracranial hemorrhage, infarction, mass or mass effect. Study limited by motion artifact. No ventriculomegaly or midline shift. There is intracranial atherosclerosis. Paranasal sinu ses and mastoids are pneumatized. No depressed skull fractures. There are scattered mild periventricu lar and subcortical white matter changes, most likely related to small vessel ischemic disease (micro angiopathy). IMPRESSION: 1. No acute intracranial abnormality. 2: Chronic age-related findings. Reviewed, dictated and finalized at location A.
[2019-11-14 02:30] VITALS: BP 142/71; PULSE 70; PULSE 81; RESP 18; TEMP 36.1; O2SAT 94; BMI 23.6
--- NOTE | 2019-11-14 02:59 | PC.NURSE ---
Admitted for skilled swing bed for weakness to lower leg due to recent right femur fracture, oriented to room and call system, aware here for therapy, side rails up and call light in reach and use explained, tired wants to sleep, oxygen set up as per home dose of 4 L NC, no distress at rest, pain minimal at this time
--- NOTE | 2019-11-14 04:16 | PM.IMHP ---
H&P: HPI History of Present Illness Date/Time: 11/14/19 0330 Chief complaint: Rehabilitation Narrative: Piedad Andrade is a 69 year old female With a history of type 2 diabetes, coronary artery disease, congestive heart failure, hypertension, severe COPD on 4-5 L of oxygen and obstructive sleep apnea admitted as a swing bed from [facility] after having had a ground level fall on November 07. Her fracture is being managed non operatively. During her stay at [facility] she was noted to have urinary tract infection for which she is taking levofloxacin. Review of Systems Constitutional: Constitutional: Denies chills and Reports weakness Comments: No fever Eyes: Eyes: Denies blurry vision and Denies photophobia ENT: Denies dysphagia and Denies nasal congestion Cardiovascular: Cardiovascular: Denies chest pain and Denies palpitations Respiratory: Respiratory: Denies cough, Denies hemoptysis, Reports dyspnea ( chronic) and Reports dyspnea on exertion Gastrointestinal: Gastrointestinal: Denies abdominal pain, Denies diarrhea, Denies nausea and Denies vomiting Genitourinary: Genitourinary: Denies nocturia and Denies dysuria Musculoskeletal: Musculoskeletal: Reports arthralgias ( right hip and both knees.), Denies joint swelling and Denies neck pain Integumentary/Breasts: Skin/Breast: Reports pruritus, Denies erythema, Denies rash and Denies wounds Neurologic: Denies confusion, Denies vertigo and Denies headache(s) Psychiatric: Psychiatric: Denies confusion Hematologic/Lymphatic: Hematologic/Lymphatic: Denies easy bleeding and Denies easy bruising Allergic/Immunologic: Allergic/Immunologic: Denies lip swelling and Denies throat swelling PMFSH Past Medical History Medical History A-fib With an ablation and paroxysmal Anxiety CAD (coronary artery disease) s/p 3 stents (mid LAD, mid CX, mid RCA) after Non STEMI May 201706/2019: Stent to the distal RCA, POBA PDA Chronic anemia Chronic respiratory failure with hypoxia Chronically on oxygen at 5 L per nasal cannula. Congestive heart failure Diastolic with most recent echocardiogram January 2019 demonstrating paradoxical septal motion consistent with right ventricular volume overload or elevated right ventricular end-diastolic pressure, EF 60-65%, mildly increased left ventricular wall thickness, grade 1 diastolic dysfunction, severely reduced right ventricular systolic function, severely enlarged right ventricular chamber, severely enlarged right atrial chamber, [id number] mitral valve regurgitation, trace tricuspid regurgitation, mild pulmonary hypertension with RVSP of 46 COPD (chronic obstructive pulmonary disease) 4L oxygen use during day and night Depression DM2 (diabetes mellitus, type 2) GERD (gastroesophageal reflux disease) History of kidney stones HTN (hypertension) Hyperlipidemia Hypomagnesemia Irritable bowel Kidney stone 2004 with surgery Obstructive sleep apnea With last sleep study March 2019 recommending auto bilevel with 5 L of oxygen Peripheral neuropathy PSVT (paroxysmal supraventricular tachycardia) Pulmonary nodules Rheumatoid arthritis Subarachnoid hemorrhage from fall in 12/2017 Surgical History Surgical History H/O bilateral cataract extraction H/O heart artery stent 3 stents at [facility]. Dr. hummel February 2018 H/O lithotripsy H/O: hysterectomy History of cholecystectomy History of hysterectomy S/P ablation of atrial fibrillation Status post bilateral foot surgery Social History Social History Social History: Primary care physician: Dr. 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 Smoking packs per day: 1 Smoking cigarettes per day: 20.0 Years smoked: 40
[2019-11-14] MEDS: levoFLOXacin TAB 500 MG, levoFLOXacin TAB 250 MG 750 MG PO (06:01)
--- NOTE | 2019-11-14 06:24 | PC.NURSE ---
Pain medication given for pain in right hip/leg
[2019-11-14 08:00] VITALS: BP 146/84; PULSE 86; RESP 20; TEMP 31.3; O2SAT 90
[2019-11-14 08:17] LABS: Glucose Point of Care 133 (65-105)
[2019-11-14] MEDS: TICAGRELOR 90 MG TABLET PO ×2 (09:00→17:08)
[2019-11-14 09:01] VITALS: PULSE 86
[2019-11-14] MEDS: METOPROLOL SUCCINATE EXT REL 50 MG TABCR 150 MG PO (09:01)
[2019-11-14] MEDS: LOSARTAN POTASSIUM 50 MG TABLET PO (09:01)
[2019-11-14] MEDS: metFORMIN HCL 500 MG TABLET PO ×2 (09:01→17:08)
[2019-11-14] MEDS: predniSONE 5 MG TABLET PO (09:02)
[2019-11-14] MEDS: MAGNESIUM OXIDE 400 MG TABLET PO (09:02)
[2019-11-14] MEDS: ATORVASTATIN 10 MG TABLET PO (09:02)
[2019-11-14] MEDS: DULoxetine HCL 30 MG CAPSULE.DR 60 MG PO (09:02)
[2019-11-14] MEDS: ASPIRIN 81 MG CHEWABLE TABLET PO (09:03)
[2019-11-14] MEDS: dilTIAZem HCL 30 MG TABLET 60 MG PO ×3 (09:08→21:23)
--- NOTE | 2019-11-14 09:57 | PHAR ---
11/13/19 - VERIFIED PT.'S HOME MEDS ANORO ELIAS AND EFRAÍN. TLS
[2019-11-14] MEDS: HYDROcodone/acetaminophen (*CRX) 5-325 MG TABLET 1 TAB PO (12:05)
[2019-11-14 12:09] LABS: Glucose Point of Care 133 (65-105)
[2019-11-14] MEDS: ONDANSETRON HCL ODT 4 MG TABLET PO ×2 (14:50→20:26)
--- NOTE | 2019-11-14 15:14 | PC.NURSE ---
1445 c/o of feeling n/v. dry heaves. cool compress given. sips on white soda. consumer loan underwriter aware and new orders....... 1450 prn given. see mar.................................................................................................................... 1530 hob up. family back to room. physcial therapy with them in room.
[2019-11-14 16:00] VITALS: BP 126/74; PULSE 86; RESP 16; TEMP 36.6; O2SAT 93
[2019-11-14 17:11] LABS: Glucose Point of Care 136 (65-105)
--- NOTE | 2019-11-14 19:26 | PC.NURSE ---
1829 bipap started. o2 weaned in. rests quietly. denies any n/v. claims pain is ok and tolerable at this time.
--- NOTE | 2019-11-14 19:50 | PC.NURSE ---
pt reports burning in chest like indigestion , denies radiation of pain, pt reports some nausea as well
[2019-11-14 19:55] VITALS: BP 161/78; PULSE 81; RESP 20; O2SAT 92
--- NOTE | 2019-11-14 20:00 | PC.NURSE ---
Call placed to ED DR, no answer, discharge planner aware of pt pain, vital signs obtained
[2019-11-14] MEDS: oxyCODONE HCL (*CRX) 10 MG TAB SR 12HR PO (20:05)
--- NOTE | 2019-11-14 20:10 | PC.NURSE ---
pt had clear emesis x1, orders received from Dr Valdaez
[2019-11-14] MEDS: NITROGLYCERIN SL 0.4 MG TABLET SUBLINGUAL (20:15)
--- NOTE | 2019-11-14 20:16 | ECG_ITS ---
Measurements Intervals [place] Rate: 83 P: 72 SC: 150 QRS: -43 QRSD: 92 T: 61 QT: 360 QTc: 424 Interpretive Statements SINUS RHYTHM POSSIBLE LEFT ATRIAL ENLARGEMENT LEFT AXIS DEVIATION CANNOT RULE OUT SEPTAL INFARCT, AGE INDETERMINATE ABNORMAL ECG Electronically Signed On 11-15-2019 7:39:43 CDT by Joshua Bennett D.O.
--- NOTE | 2019-11-14 20:19 | PC.NURSE ---
Cardiopulmonary at bedside to perform EKG, lab waiting to obtain labs when EKG completed
--- NOTE | 2019-11-14 20:25 | PC.NURSE ---
Dr Valadez at bedside
[2019-11-14 20:51] LABS: Troponin I < 0.02 ng/mL (0.00-0.056)
--- NOTE | 2019-11-14 21:15 | PM.EVENT ---
Event Note Event Note Event Note: Piedad had an episode of chest pain. It was an intense burning in her central chest that may radiate to her left arm. It was associated with nausea and 1 episode of vomiting. No dizziness, diaphoresis SOB or syncope. Symptoms were better with nitroglycerin. Zofran helped her nausea but did not relieve it completely so she was given a GI cocktail. EKG showed NSR at a rate of [address] abnormality. Tropoinin was negative. Will trend tropoinins given history of CAD.
[2019-11-14] MEDS: MAG HYDROX/ALUMINUM HYD/SIMETH 30 ML, PHENobarb/HYOSCY/ATROPINE/SCOP 32.4 MG, LIDOCAINE... PO (21:23)
[2019-11-14 21:30] VITALS: BP 142/76; PULSE 82; RESP 20; O2SAT 97
[2019-11-14 21:36] LABS: Glucose Point of Care 127 (65-105)
[2019-11-15] VITALS (9 sets, daily range): BP systolic 100–152; BP diastolic 58–79; PULSE 75–97; RESP 18–20; TEMP 36.1–36.6; O2SAT 50–94
--- NOTE | 2019-11-15 02:30 | PC.NURSE ---
pt sleeping, no evidence of distress noted, respirations even and regular, cpap on
--- NOTE | 2019-11-15 02:55 | PC.NURSE ---
lab at bedside
[2019-11-15 03:38] LABS: Troponin I < 0.02 ng/mL (0.00-0.056)
[2019-11-15] MEDS: HYDROcodone/acetaminophen (*CRX) 5-325 MG TABLET 1 TAB PO ×2 (04:26→15:44)
[2019-11-15] MEDS: ONDANSETRON HCL ODT 4 MG TABLET PO ×2 (04:29→20:05)
[2019-11-15] MEDS: dilTIAZem HCL 30 MG TABLET 60 MG PO ×3 (06:18→21:25)
[2019-11-15 07:43] LABS: Glucose Point of Care 152 (65-105)
--- NOTE | 2019-11-15 08:00 | PC.NURSE ---
Up in chair per Physical therapy, pain about a 4/10 at this time, no chest pain
--- NOTE | 2019-11-15 08:21 | PM.IMPN ---
Progress Note: A&P Assessment and Plan (1) Acute UTI: Code(s): N39.0 - Urinary tract infection, site not specified Status: Acute Assessment and Plan: 11/15/2019 Continue levofloxacin therapy for a total of 7 days. Stop date is 11/19/2019 (2) CAD (coronary artery disease): Code(s): I25.10 - Atherosclerotic heart disease of [place] coronary artery without angina pectoris Status: Chronic Assessment and Plan: 11/15/2019 Continue anti-platelet therapy, hypertension control, and hyperlipidemia therapy (3) Closed intertrochanteric fracture of right hip: Qualifiers: Encounter type: initial encounter Fracture alignment: nondisplaced Qualified Code(s): S72.144A - Nondisplaced intertrochanteric fracture of right femur, initial encounter for closed fracture Code(s): S72.141A - Displaced intertrochanteric fracture of right femur, initial encounter for closed fracture Status: Acute Assessment and Plan: 11/15/2019 Toe-touch weight-bearing with transfers only. Anticipate change in weight-bearing status in approximately 6 weeks. Weekly hip x-rays. Continue with PT OT (4) PSVT (paroxysmal supraventricular tachycardia): Code(s): I47.1 - Supraventricular tachycardia Status: Chronic Assessment and Plan: 11/15/2019 Continue metoprolol, monitor vital signs (5) CHF (congestive heart failure): Qualifiers: Heart failure chronicity: acute on chronic Heart failure type: unspecified Qualified Code(s): I50.9 - Heart failure, unspecified Code(s): I50.9 - Heart failure, unspecified Status: Chronic Assessment and Plan: 11/15/2019 Continue daily furosemide and potassium, lungs diminished posteriorly no rales, no increase in peripheral edema (6) COPD (chronic obstructive pulmonary disease): Qualifiers: COPD type: unspecified COPD Qualified Code(s): J44.9 - Chronic obstructive pulmonary disease, unspecified Code(s): J44.9 - Chronic obstructive pulmonary disease, unspecified Status: Chronic Assessment and Plan: 11/15/2019 Continue oral, MDI, steroid, and oxygen treatments. History of chronic hypoxic respiratory failure. (7) Diabetes: Code(s): E11.9 - Type 2 diabetes mellitus without complications Status: Chronic Assessment and Plan: 11/15/2019 Continue Accu-Cheks and oral hypoglycemics. (8) JOAQUIN (obstructive sleep apnea): Code(s): G47.33 - Obstructive sleep apnea (adult) (pediatric) Status: Chronic Assessment and Plan: 11/15/2019 CPAP at bedside (9) HTN (hypertension) with goal to be determined: Code(s): I10 - Essential (primary) hypertension Status: Chronic Assessment and Plan: 11/15/2019 Continue antihypertensives and monitor vital signs Subjective Date/time seen: 11/15/19 08:21 Patient states she is feeling better today but was not able to give me a number for her pain. When she first arrived pain was 10 on 10. Nurse was in with me and asked the patient if the pain was about half of when she first came in and the patient said no a little better than that. Patient does not have any other complaints other than her hip pain. Review of Systems Constitutional: Constitutional: Reports no additional constitutional complaints Cardiovascular: Cardiovascular: Reports no additional cardiovascular complaints and Denies chest pain Respiratory: Respiratory: Reports no additional respiratory complaints Gastrointestinal: Gastrointestinal: Reports no additional gastrointestinal complaints Musculoskeletal: Comments: Patient complains about the right hip pain and admits that is better today than yesterday. Neurologic: Denies lack of coordination, Denies focal weakness and Denies numbness Exam Const: General: cooperative; No comfortable ( due to right hip pain) Orientation/consciousness: oriented to person, oriented to place and oriented to time ( and events) Res
[2019-11-15] MEDS: ATORVASTATIN 10 MG TABLET PO (09:02)
[2019-11-15] MEDS: oxyCODONE HCL (*CRX) 10 MG TAB SR 12HR PO ×2 (09:03→20:05)
[2019-11-15] MEDS: MAGNESIUM OXIDE 400 MG TABLET PO (09:03)
[2019-11-15] MEDS: metFORMIN HCL 500 MG TABLET PO ×2 (09:03→16:41)
[2019-11-15] MEDS: DULoxetine HCL 30 MG CAPSULE.DR 60 MG PO (09:03)
[2019-11-15] MEDS: ASPIRIN 81 MG CHEWABLE TABLET PO (09:03)
[2019-11-15] MEDS: LOSARTAN POTASSIUM 50 MG TABLET PO (09:04)
[2019-11-15] MEDS: predniSONE 5 MG TABLET PO (09:04)
[2019-11-15] MEDS: PANTOPRAZOLE 40 MG TABLET PO (09:16)
[2019-11-15] MEDS: METOPROLOL SUCCINATE EXT REL 50 MG TABCR 150 MG PO (09:16)
[2019-11-15] MEDS: TICAGRELOR 90 MG TABLET PO ×2 (09:16→16:41)
[2019-11-15 09:21] LABS: Troponin I 0.03 ng/mL (0.00-0.056)
--- NOTE | 2019-11-15 11:14 | PC.NURSE ---
Denies need to void
[2019-11-15 11:51] LABS: Glucose Point of Care 200 (65-105)
--- NOTE | 2019-11-15 11:58 | PC.NURSE ---
Used Lary Steady to get from edge of bed to commode then to chair after voided, tolerated fair, needed max assist at first from bed to stand, from there required moderate assist
--- NOTE | 2019-11-15 13:59 | PC.NURSE ---
Heart rate 78 verified prior to Cardizem po administration.
[2019-11-15 16:54] LABS: Glucose Point of Care 154 (65-105)
--- NOTE | 2019-11-15 19:33 | PC.NURSE ---
Patient yelling out. When entered room she was complaining of chest pain across top of her chest. Patient did not have oxygen on. Patient reeducated to use call light and to keep O2 on. O2 sats at 77% on room air. O2 reapplied. Left room to obtain medication. When returned has O2 off again. Begin crying stating she was dying and no one cared. VS WNL except for O2 level. CT nitro given, O2 reapplied.
--- NOTE | 2019-11-15 20:10 | PC.NURSE ---
Josen refusing pain medication. Stated she was being insulted by suggesting pain was related to low O2 sats. Requested to call . education given regarding the effects of low Os sats
--- NOTE | 2019-11-15 20:19 | PC.NURSE ---
Called patient's son Winston to explain situation. Son spoke with patient. Son reports patient receives O2 at 6 liters. SPO2 was to low otherwise and confusion resulted. Also reports C-PAP bleed in at 5 liters. Charge nurse aware of information.
--- NOTE | 2019-11-15 21:40 | PC.NURSE ---
Patient calmer and more oriented. Commode offered-refused. Assisted with applying C-pap
--- NOTE | 2019-11-15 22:40 | PC.NURSE ---
Patient in room with CPAP in place at this time.
[2019-11-15 22:47] LABS: Glucose Point of Care 131 (65-105)
--- NOTE | 2019-11-15 23:52 | PC.NURSE ---
Patient in room with CPAP and Nasal cannula off. Did allow to put nasal cannula back on. SPO2 at 50% on room air. Returned to 89% with nasal cannula at 4 liters
[2019-11-16] MEDS: levoFLOXacin TAB 500 MG, levoFLOXacin TAB 250 MG 750 MG PO (05:44)
[2019-11-16] MEDS: dilTIAZem HCL 30 MG TABLET 60 MG PO ×3 (05:44→21:06)
[2019-11-16 08:00] VITALS: BP 106/55; PULSE 78; RESP 24; TEMP 36.2; O2SAT 92
[2019-11-16 08:14] LABS: Glucose Point of Care 156 (65-105)
[2019-11-16] MEDS: ASPIRIN 81 MG CHEWABLE TABLET PO (09:18)
[2019-11-16] MEDS: DULoxetine HCL 30 MG CAPSULE.DR 60 MG PO (09:18)
[2019-11-16 09:19] VITALS: PULSE 79
[2019-11-16] MEDS: MAGNESIUM OXIDE 400 MG TABLET PO (09:19)
[2019-11-16] MEDS: LOSARTAN POTASSIUM 50 MG TABLET PO (09:19)
[2019-11-16] MEDS: oxyCODONE HCL (*CRX) 10 MG TAB SR 12HR PO ×2 (09:19→21:07)
[2019-11-16] MEDS: ATORVASTATIN 10 MG TABLET PO (09:19)
[2019-11-16] MEDS: metFORMIN HCL 500 MG TABLET PO ×2 (09:19→16:55)
[2019-11-16] MEDS: predniSONE 5 MG TABLET PO (09:19)
[2019-11-16] MEDS: METOPROLOL SUCCINATE EXT REL 50 MG TABCR 150 MG PO (09:19)
[2019-11-16] MEDS: TICAGRELOR 90 MG TABLET PO ×2 (09:23→16:55)
[2019-11-16 11:58] LABS: Glucose Point of Care 157 (65-105)
--- NOTE | 2019-11-16 13:31 | PC.NURSE ---
Transferred patient from [facility] to bed with paula de la vega
[2019-11-16 16:00] VITALS: BP 126/65; PULSE 75; RESP 22; TEMP 36.4; O2SAT 92
[2019-11-16] MEDS: HYDROcodone/acetaminophen (*CRX) 5-325 MG TABLET 1 TAB PO (16:55)
[2019-11-17] VITALS: BP 128/63; PULSE 78; RESP 18; TEMP 35.7; O2SAT 93
[2019-11-17] MEDS: ONDANSETRON HCL ODT 4 MG TABLET PO (01:10)
--- NOTE | 2019-11-17 01:22 | PC.NURSE ---
Patient complaining of nausea. Zofran given with relief starting within a few minutes. Patient refused to put her CPAP back on so nurse put her back on her O2 @ 4 lpm/nc. Patient kept removing her nasal cannula and nurse kept putting it back on and explaining to patient that she needs to wear it. Patient would agree then pull the cannula off again. Call light in reach.
--- NOTE | 2019-11-17 02:25 | PC.NURSE ---
Patient still awake. Denies nausea/pain/complaints/needs @ this time. Patient keeps taking her O2 off to scratch her nose, saying the tubing bothers her. Convinced patient to put CPAP back on by telling her it won't bother her nose like the cannula does. Patient denies needing to use the commode. Call light in reach.
--- NOTE | 2019-11-17 02:50 | PC.NURSE ---
Patient appears to be sleeping by the rise and fall of her chest. CPAP remains on with O2 bleeding in @ 4 lpm. No distress noted. Call light in reach.
[2019-11-17] MEDS: dilTIAZem HCL 30 MG TABLET 60 MG PO ×3 (05:00→21:36)
[2019-11-17] MEDS: HYDROcodone/acetaminophen (*CRX) 5-325 MG TABLET 1 TAB PO ×2 (06:36→11:58)
[2019-11-17 08:00] VITALS: BP 123/68; PULSE 84; RESP 24; TEMP 36.8; O2SAT 92
[2019-11-17 08:17] LABS: Glucose Point of Care 113 (65-105)
[2019-11-17 09:27] VITALS: PULSE 84
[2019-11-17] MEDS: oxyCODONE HCL (*CRX) 10 MG TAB SR 12HR PO ×2 (09:27→21:36)
[2019-11-17] MEDS: DULoxetine HCL 30 MG CAPSULE.DR 60 MG PO (09:27)
[2019-11-17] MEDS: ASPIRIN 81 MG CHEWABLE TABLET PO (09:27)
[2019-11-17] MEDS: METOPROLOL SUCCINATE EXT REL 50 MG TABCR 150 MG PO (09:27)
[2019-11-17] MEDS: LOSARTAN POTASSIUM 50 MG TABLET PO (09:27)
[2019-11-17] MEDS: predniSONE 5 MG TABLET PO (09:27)
[2019-11-17] MEDS: ATORVASTATIN 10 MG TABLET PO (09:27)
[2019-11-17] MEDS: MAGNESIUM OXIDE 400 MG TABLET PO (09:27)
[2019-11-17] MEDS: metFORMIN HCL 500 MG TABLET PO ×2 (09:27→16:33)
[2019-11-17] MEDS: TICAGRELOR 90 MG TABLET PO ×2 (09:29→16:33)
[2019-11-17 12:06] LABS: Glucose Point of Care 116 (65-105)
[2019-11-17 16:00] VITALS: BP 125/63; PULSE 84; RESP 18; TEMP 36.4; O2SAT 86
--- NOTE | 2019-11-17 16:48 | PC.NURSE ---
pt voices concern that she will not keep her o2 on and has been more confused than normal lately, oxygen tubing changed at his request, pt is having trouble remembering events from the day, oxygen placed back on at 4.5 L, sats up to 95%
[2019-11-17 16:53] VITALS: O2SAT 95
--- NOTE | 2019-11-17 16:55 | PC.NURSE ---
concerned about her protein intake since she has not been eating much, dietary will add a glucerna to her dinner tray
--- NOTE | 2019-11-17 20:42 | PC.NURSE ---
pt appears to be sleeping, hob up, o2 is on, rails up, call light in reach, breathing unlabored
[2019-11-17 20:48] LABS: Appearance Urine Sl Cloudy (Clear); Bilirubin Urine 1+ (Negative); Color Urine Yellow (Yellow); Glucose Urine UA Negative (Negative); Ketones Urine Trace (Negative); Leukocyte Esterase Ur Negative (Negative); Nitrate Urine Negative (Negative); Protein Urine Negative (Negative); Specific Grav Ur 1.025 (1.010-1.020); Urobilinogen Urine 0.2 mg/dL (0.2-1.0)
[2019-11-17 20:50] LABS: Glucose Point of Care 112 (65-105)
[2019-11-17 20:54] LABS: Add Urine Microscopic? YES; Bacteria Urine Trace /hpf; Blood Urine Trace-Intact (Negative); Squamous Epithelial Cell Urine Moderate /hpf (Few); WBC Urine None seen /hpf (0-3)
[2019-11-17 20:55] LABS: Budding Yeast Urine Present /hpf; Mucus Urine None seen /lpf
--- NOTE | 2019-11-17 21:40 | PC.NURSE ---
pt wakes to voice, no difficulty taking po meds, c/o left wrist pain, hob up, 02 is on, call light in reach
[2019-11-18] VITALS: BP 141/71; PULSE 80; RESP 18; TEMP 36.5; O2SAT 95
[2019-11-18 05:09] VITALS: BP 141/70; PULSE 81; RESP 16; TEMP 36.1; O2SAT 96
[2019-11-18] MEDS: dilTIAZem HCL 30 MG TABLET 60 MG PO ×3 (05:16→21:06)
[2019-11-18] MEDS: levoFLOXacin TAB 500 MG, levoFLOXacin TAB 250 MG 750 MG PO (05:16)
[2019-11-18 05:35] LABS: Hematocrit 34.4 % (35.0-42.0); Hemoglobin 10.8 g/dL (11.7-13.8); Mean Corpuscular HGB Conc 31.4 g/dL (32.0-36.0); Mean Corpuscular Hemoglobin 27.9 pg (27.0-31.0); Mean Corpuscular Volume 88.9 fL (78.0-102.0); Mean Platelet Volume 9.7 fl (9.2-11.8); Platelet Count Result 232 K/mm3 (150-420); Red Blood Count 3.87 M/mm3 (4.20-5.40); Red Cell Distribution Width 13.2 % (11.6-14.4); White Blood Count 8.9 K/mm3 (4.8-10.8)
[2019-11-18 05:45] LABS: Anion Gap 6 mmol/L (8-16); Blood Urea Nitrogen 39 mg/dL (7-18); Calcium 9.1 mg/dL (8.5-10.1); Carbon Dioxide 32 mmol/L (21-32); Chloride 101 mmol/L (98-108); Estimated CRCL calculation 30 ml/min; Estimated Glomerular Filt Rate 40; Glucose 96 mg/dL (70-99); Osmolality Calculated 297 mOsm/kg (285-295); Potassium 4.4 mmol/L (3.5-5.1); Sodium 139 mmol/L (136-145)
[2019-11-18] MEDS: oxyCODONE HCL (*CRX) 10 MG TAB SR 12HR PO ×2 (07:40→21:07)
[2019-11-18 07:48] LABS: Glucose Point of Care 110 (65-105)
[2019-11-18 08:00] VITALS: BP 139/68; PULSE 79; RESP 20; TEMP 36.6; O2SAT 96
[2019-11-18] MEDS: LORazepam (*CRX) 1 MG TABLET PO (09:06)
[2019-11-18] MEDS: DULoxetine HCL 30 MG CAPSULE.DR 60 MG PO (09:06)
[2019-11-18 09:07] VITALS: PULSE 79
[2019-11-18] MEDS: predniSONE 5 MG TABLET PO (09:07)
[2019-11-18] MEDS: ATORVASTATIN 10 MG TABLET PO (09:07)
[2019-11-18] MEDS: LOSARTAN POTASSIUM 50 MG TABLET PO (09:07)
[2019-11-18] MEDS: MAGNESIUM OXIDE 400 MG TABLET PO (09:07)
[2019-11-18] MEDS: ASPIRIN 81 MG CHEWABLE TABLET PO (09:07)
[2019-11-18] MEDS: metFORMIN HCL 500 MG TABLET PO ×2 (09:07→17:52)
[2019-11-18] MEDS: METOPROLOL SUCCINATE EXT REL 50 MG TABCR 150 MG PO (09:07)
[2019-11-18] MEDS: TICAGRELOR 90 MG TABLET PO ×2 (09:08→17:52)
--- NOTE | 2019-11-18 12:47 | PM.EVENT ---
Event Note Event Note Event Note: 11/18/2019 1248 hours Pt has been a bit agitated the last 2 mornings. A single does trial of Ativan was given to the Pt to see if this would help and it did. Levaquin was also stopped. Ativan was placed on MAR as a BID dose PRN for agitation.
[2019-11-18] MEDS: ALENDRONATE SODIUM 70 MG TABLET PO (13:03)
[2019-11-18 15:44] VITALS: BP 124/67; PULSE 83; RESP 20; TEMP 36.5; O2SAT 94
[2019-11-18 16:50] LABS: Glucose Point of Care 139 (65-105)
--- NOTE | 2019-11-18 18:28 | PC.NURSE ---
Patient confused most of day. Left hand gold ring with multiple large clear stones and right hand gold ring taken off by publications writer and given to whom was in room while publications writer took rings off patient because they were very loose. Isidoro took rings home.
[2019-11-18 21:03] VITALS: BP 117/61; PULSE 70; RESP 18; TEMP 36.4; O2SAT 97
[2019-11-18] MEDS: NYSTATIN OINTMENT 15 GM TUBE 1 APPLIC TOPICAL (21:31)
--- NOTE | 2019-11-18 21:32 | PC.NURSE ---
Patient assisted up to bedside commode with kateryna with assist of two. Patient is very confused tonight. she is noted to be swatting at the air stating that she is hitting the bites. Patient is not answering questions appropriately tonight. Patient assisted back to bed and placed on CPAP for sleep.
--- NOTE | 2019-11-18 23:30 | PC.NURSE ---
Patient repeatedly pulling cpap off. Patient placed on oxygen at 4.5 liters by nasal cannula.
[2019-11-19 05:07] VITALS: BP 103/51; PULSE 82; RESP 18; TEMP 36.2; O2SAT 97
[2019-11-19] MEDS: dilTIAZem HCL 30 MG TABLET 60 MG PO ×3 (05:10→21:01)
--- NOTE | 2019-11-19 05:22 | PC.NURSE ---
Patient took am pills whole in applesauce. Patient noted to be grimacing while swallowing. She stated that it feels like they get stuck in her throat. Pills were followed by a few more bites of applesauce and some water until patient felt like the pills had gone down all the way.
--- NOTE | 2019-11-19 07:30 | PC.NURSE ---
CONCHA John in room to work with patient.
[2019-11-19 08:03] VITALS: PULSE 85
[2019-11-19] MEDS: ASPIRIN 81 MG CHEWABLE TABLET PO (08:03)
[2019-11-19] MEDS: METOPROLOL SUCCINATE EXT REL 50 MG TABCR 150 MG PO (08:03)
[2019-11-19] MEDS: oxyCODONE HCL (*CRX) 10 MG TAB SR 12HR PO ×2 (08:03→21:01)
[2019-11-19] MEDS: DULoxetine HCL 30 MG CAPSULE.DR 60 MG PO (08:03)
[2019-11-19] MEDS: predniSONE 5 MG TABLET PO (08:03)
[2019-11-19] MEDS: metFORMIN HCL 500 MG TABLET PO ×2 (08:04→16:56)
[2019-11-19] MEDS: TICAGRELOR 90 MG TABLET PO ×2 (08:04→16:56)
[2019-11-19] MEDS: MAGNESIUM OXIDE 400 MG TABLET PO (08:04)
[2019-11-19] MEDS: NYSTATIN OINTMENT 15 GM TUBE 1 APPLIC TOPICAL ×2 (08:04→21:01)
[2019-11-19] MEDS: ATORVASTATIN 10 MG TABLET PO (08:04)
[2019-11-19] MEDS: LOSARTAN POTASSIUM 50 MG TABLET PO (08:04)
[2019-11-19] MEDS: MEGESTROL ACETATE (*CHEMO) 40 MG TABLET PO ×4 (08:06→21:01)
[2019-11-19 08:10] VITALS: BP 110/52; PULSE 85; RESP 18; TEMP 36.2; O2SAT 98
[2019-11-19 08:15] LABS: Glucose Point of Care 120 (65-105)
--- NOTE | 2019-11-19 10:05 | PC.NURSE ---
Patient sleeping quietly in bed with hob elevated. No distress noted. in room to visit with patient.
[2019-11-19 13:56] LABS: Hematocrit 34.6 % (35.0-42.0); Hemoglobin 10.8 g/dL (11.7-13.8); Mean Corpuscular HGB Conc 31.2 g/dL (32.0-36.0); Mean Corpuscular Hemoglobin 27.9 pg (27.0-31.0); Mean Corpuscular Volume 89.4 fL (78.0-102.0); Mean Platelet Volume 10.2 fl (9.2-11.8); Platelet Count Result 257 K/mm3 (150-420); Red Blood Count 3.87 M/mm3 (4.20-5.40); Red Cell Distribution Width 13.3 % (11.6-14.4); White Blood Count 10.9 K/mm3 (4.8-10.8)
--- NOTE | 2019-11-19 14:00 | PM.EVENT ---
Event Note Event Note Event Note: concerned about patient mental status.I collected another UA per request and repeat cxr which is unchanged. her blood gas has improved.I have adjusted her ativan . If no improvement will complete a CT tomorrow. Today patient is alert to self only.
[2019-11-19 14:04] LABS: Base Excess ABG 5.8 mmol/L (0-2); HCO3 ABG 31.8 mmol/L (23-29); PCO2 ABG 52.4 mmHg (35-45); PO2 ABG 80.9 mmHg (75-85)
[2019-11-19 14:05] LABS: Oxyhemoglobin 96 % (94-100); Total Hemoglobin 12.3 g/dL
[2019-11-19 14:06] LABS: Device NASAL CANNULA; Modified Allen's Test Pass; Site Drawn LEFT BRACHIAL
[2019-11-19 14:17] LABS: Alanine Aminotransferase 13 U/L (14-59); Albumin Level 3.1 g/dL (3.4-5.0); Alkaline Phosphatase 87 U/L (46-116); Anion Gap 7 mmol/L (8-16); Aspartate Amino Transferase 12 U/L (15-37); Bilirubin,Total 0.6 mg/dL (0.00-1.00); Blood Urea Nitrogen 41 mg/dL (7-18); Calcium 9.3 mg/dL (8.5-10.1); Carbon Dioxide 33 mmol/L (21-32); Chloride 100 mmol/L (98-108); Estimated CRCL calculation 25 ml/min; Estimated Glomerular Filt Rate 32; Glucose 169 mg/dL (70-99); Osmolality Calculated 304 mOsm/kg (285-295); Sodium 140 mmol/L (136-145); Total Protein 6.5 g/dL (6.4-8.2)
[2019-11-19 16:45] VITALS: BP 129/60; PULSE 77; RESP 18; TEMP 36.7; O2SAT 96
[2019-11-19 17:02] LABS: Glucose Point of Care 135 (65-105)
--- NOTE | 2019-11-19 18:28 | PC.NURSE ---
Patient resting in bed with hob elevated. Patient hollering out for help. Nurse entered room to find patient laying in bed confused asking if her children were okay. Nurse reoriented patient, patient states understanding. Nurse reminded patient to use call hernandez. call light in reach.
[2019-11-19 19:06] LABS: Add Urine Microscopic? YES; Appearance Urine Sl Cloudy (Clear); Bilirubin Urine 1+ (Negative); Blood Urine Negative (Negative); Color Urine Yellow (Yellow); Glucose Urine UA Negative (Negative); Ketones Urine Trace (Negative); Leukocyte Esterase Ur Negative (Negative); Nitrate Urine Negative (Negative); Protein Urine Negative (Negative); Urobilinogen Urine 0.2 mg/dL (0.2-1.0); pH Urine 6.5 (5.0-8.0)
[2019-11-19 19:12] LABS: Bacteria Urine 1+ /hpf; RBC Urine 0-2 /hpf (0-2); Squamous Epithelial Cell Urine Moderate /hpf (Few); WBC Urine 0-3 /hpf (0-3)
[2019-11-19 19:13] LABS: Budding Yeast Urine Present /hpf
[2019-11-19 19:44] VITALS: BP 127/63; PULSE 82; TEMP 36.4; O2SAT 95
--- NOTE | 2019-11-19 21:21 | PC.NURSE ---
Patient up to commode with lali de la vega and gait belt. Appears to be less confused today. required orientation to place and time. Does not remember falling or having broken hip
[2019-11-20] VITALS: BP 141/72; PULSE 72; RESP 14; TEMP 36.4; O2SAT 100
[2019-11-20] MEDS: dilTIAZem HCL 30 MG TABLET 60 MG PO ×3 (05:27→20:59)
--- NOTE | 2019-11-20 05:39 | PC.NURSE ---
Patient up to bedside commode with Miriam Steady and gait belt. Appears to be more alert and coherent
[2019-11-20 05:56] LABS: Hematocrit 36.7 % (35.0-42.0); Hemoglobin 11.5 g/dL (11.7-13.8); Mean Corpuscular HGB Conc 31.3 g/dL (32.0-36.0); Mean Corpuscular Hemoglobin 27.6 pg (27.0-31.0); Mean Corpuscular Volume 88.2 fL (78.0-102.0); Mean Platelet Volume 9.6 fl (9.2-11.8); Platelet Count Result 239 K/mm3 (150-420); Red Blood Count 4.16 M/mm3 (4.20-5.40); Red Cell Distribution Width 13.3 % (11.6-14.4); White Blood Count 9.3 K/mm3 (4.8-10.8)
[2019-11-20 06:14] LABS: Alanine Aminotransferase 13 U/L (14-59); Alkaline Phosphatase 84 U/L (46-116); Anion Gap 9 mmol/L (8-16); Aspartate Amino Transferase 10 U/L (15-37); Bilirubin,Total 0.6 mg/dL (0.00-1.00); Blood Urea Nitrogen 38 mg/dL (7-18); Carbon Dioxide 30 mmol/L (21-32); Chloride 101 mmol/L (98-108); D Dimer 1.55 mg/L (0.19-0.50); Estimated CRCL calculation 30 ml/min; Estimated Glomerular Filt Rate 40; Glucose 109 mg/dL (70-99); Osmolality Calculated 300 mOsm/kg (285-295); Potassium 4.4 mmol/L (3.5-5.1); Sodium 140 mmol/L (136-145)
--- NOTE | 2019-11-20 06:24 | PC.NURSE ---
Dr Young notified of critical high d-dimer and high C-Reactive lab levels. New orders received.
[2019-11-20 07:10] VITALS: BP 146/88; PULSE 89; RESP 18; TEMP 36.7; O2SAT 98
[2019-11-20 07:18] LABS: Glucose Point of Care 99 (65-105)
[2019-11-20 08:27] VITALS: PULSE 89
[2019-11-20] MEDS: ASPIRIN 81 MG CHEWABLE TABLET PO (08:27)
[2019-11-20] MEDS: DULoxetine HCL 30 MG CAPSULE.DR 60 MG PO (08:27)
[2019-11-20] MEDS: TICAGRELOR 90 MG TABLET PO ×2 (08:27→16:40)
[2019-11-20] MEDS: METOPROLOL SUCCINATE EXT REL 50 MG TABCR 150 MG PO (08:27)
[2019-11-20] MEDS: ATORVASTATIN 10 MG TABLET PO (08:28)
[2019-11-20] MEDS: LOSARTAN POTASSIUM 50 MG TABLET PO (08:28)
[2019-11-20] MEDS: MEGESTROL ACETATE (*CHEMO) 40 MG TABLET PO ×4 (08:28→20:57)
[2019-11-20] MEDS: MAGNESIUM OXIDE 400 MG TABLET PO (08:28)
[2019-11-20] MEDS: oxyCODONE HCL (*CRX) 10 MG TAB SR 12HR PO ×2 (08:28→20:57)
[2019-11-20] MEDS: predniSONE 5 MG TABLET PO (08:28)
[2019-11-20] MEDS: metFORMIN HCL 500 MG TABLET PO ×2 (08:28→16:40)
--- NOTE | 2019-11-20 10:43 | P.PN_ITS ---
Progress Note: A&P Assessment and Plan (1) COPD (chronic obstructive pulmonary disease): Code(s): J44.9 - Chronic obstructive pulmonary disease, unspecified Status: Chronic Assessment and Plan: * Continue use of supplementary oxygen 4 to 5 L nasal cannula * Continue albuterol every 4 to 6 hours as needed,roflumilast 500mg dailyand umeclidinium daily * Continue prednisone 5 mg daily (2) Congestive heart failure: Code(s): I50.9 - Heart failure, unspecified Status: Chronic Assessment and Plan: * Compensated * Will start daily weights * Continue Lasix 20 mg p.o. as needed for edema * No edema or excessive short of breath noted (3) Hyperlipidemia: Qualifiers: Hyperlipidemia type: mixed hyperlipidemia Qualified Code(s): E78.2 - Mixed hyperlipidemia Code(s): E78.5 - Hyperlipidemia, unspecified Status: Chronic Assessment and Plan: * Continue atorvastatin (4) DM2 (diabetes mellitus, type 2): Qualifiers: Diabetes mellitus extermination inspector insulin use: without extermination inspector use Diabetes mellitus complication status: without complication Qualified Code(s): E11.9 - Type 2 diabetes mellitus without complications Code(s): E11.9 - Type 2 diabetes mellitus without complications Status: Chronic Assessment and Plan: * Patient's blood sugar 99 * Continue metformin 500 mg p.o. twice daily * We will continue to monitor and adjust as needed (5) JOAQUIN (obstructive sleep apnea): Code(s): G47.33 - Obstructive sleep apnea (adult) (pediatric) Status: Chronic Assessment and Plan: * Continue use of BiPAP/CPAP (6) Closed intertrochanteric fracture of right hip: Qualifiers: Encounter type: initial encounter Fracture alignment: nondisplaced Qualified Code(s): S72.144A - Nondisplaced intertrochanteric fracture of right femur, initial encounter for closed fracture Code(s): S72.141A - Displaced intertrochanteric fracture of right femur, initial encounter for closed fracture Status: Acute Assessment and Plan: * Imaging indicates nondisplaced right hip intertrochanteric fx * Dr. Temple consulted at [facility] * Patient considered extremely high surgical risk. We will manage care nonoperative * Toe-touch weightbearing with transfer. Weightbearing status will change in approximately 6 weeks.pivot transfer only * Continue weekly x-rays requested by Dr. Temple * Continue pain control (7) Acute UTI: Code(s): N39.0 - Urinary tract infection, site not specified Status: Acute Assessment and Plan: * Resolved * Patient completed Levaquin yesterday * Repeat UA does not indicate UTI (8) CAD (coronary artery disease): Code(s): I25.10 - Atherosclerotic heart disease of [place] coronary artery without angina pectoris Status: Chronic Assessment and Plan: * Continue atorvastatin 10 mg p.o. daily * Continue brilinta 90 mg p.o. twice daily * Continue aspirin 81 mg p.o. daily (9) SVT (supraventricular tachycardia): Code(s): I47.1 - Supraventricular tachycardia Status: Acute Assessment and Plan: * Continue Cardizem 60 mg p.o. every 8 hours and metoprolol 150 mg p.o. daily with PRN nitro * Heart rate 89 * Last EKG on 916 indicates sr hr 83 * Continue aspirin (10) Weakness: Code(s): R53.1 - Weakness Status: Acute Assessment and Plan: ? Exhibit tolerance during physical activity as evidenced by a normal fluctuation of vital signs during physical
--- NOTE | 2019-11-20 10:43 | WPDPN ---
Progress Note: A&P Assessment and Plan (1) COPD (chronic obstructive pulmonary disease): Code(s): J44.9 - Chronic obstructive pulmonary disease, unspecified Status: Chronic Assessment and Plan: Continue use of supplementary oxygen 4 to 5 L nasal cannula Continue albuterol every 4 to 6 hours as needed,roflumilast 500mg dailyand umeclidinium daily Continue prednisone 5 mg daily (2) Congestive heart failure: Code(s): I50.9 - Heart failure, unspecified Status: Chronic Assessment and Plan: Compensated Will start daily weights Continue Lasix 20 mg p.o. as needed for edema No edema or excessive short of breath noted (3) Hyperlipidemia: Qualifiers: Hyperlipidemia type: mixed hyperlipidemia Qualified Code(s): E78.2 - Mixed hyperlipidemia Code(s): E78.5 - Hyperlipidemia, unspecified Status: Chronic Assessment and Plan: Continue atorvastatin (4) DM2 (diabetes mellitus, type 2): Qualifiers: Diabetes mellitus intermediate accountant insulin use: without intermediate accountant use Diabetes mellitus complication status: without complication Qualified Code(s): E11.9 - Type 2 diabetes mellitus without complications Code(s): E11.9 - Type 2 diabetes mellitus without complications Status: Chronic Assessment and Plan: Patient's blood sugar 99 Continue metformin 500 mg p.o. twice daily We will continue to monitor and adjust as needed (5) JOAQUIN (obstructive sleep apnea): Code(s): G47.33 - Obstructive sleep apnea (adult) (pediatric) Status: Chronic Assessment and Plan: Continue use of BiPAP/CPAP (6) Closed intertrochanteric fracture of right hip: Qualifiers: Encounter type: initial encounter Fracture alignment: nondisplaced Qualified Code(s): S72.144A - Nondisplaced intertrochanteric fracture of right femur, initial encounter for closed fracture Code(s): S72.141A - Displaced intertrochanteric fracture of right femur, initial encounter for closed fracture Status: Acute Assessment and Plan: Imaging indicates nondisplaced right hip intertrochanteric fx Dr. Temple consulted at [facility] Patient considered extremely high surgical risk. We will manage care nonoperative Toe-touch weightbearing with transfer. Weightbearing status will change in approximately 6 weeks.pivot transfer only Continue weekly x-rays requested by Dr. Temple Continue pain control (7) Acute UTI: Code(s): N39.0 - Urinary tract infection, site not specified Status: Acute Assessment and Plan: Resolved Patient completed Levaquin yesterday Repeat UA does not indicate UTI (8) CAD (coronary artery disease): Code(s): I25.10 - Atherosclerotic heart disease of [place] coronary artery without angina pectoris Status: Chronic Assessment and Plan: Continue atorvastatin 10 mg p.o. daily Continue brilinta 90 mg p.o. twice daily Continue aspirin 81 mg p.o. daily (9) SVT (supraventricular tachycardia): Code(s): I47.1 - Supraventricular tachycardia Status: Acute Assessment and Plan: Continue Cardizem 60 mg p.o. every 8 hours and metoprolol 150 mg p.o. daily with PRN nitro Heart rate 89 Last EKG on indicates sr hr 83 Continue aspirin (10) Weakness: Code(s): R53.1 - Weakness Status: Acute Assessment and Plan: ? Exhibit tolerance during physical activity as evidenced by a normal fluctuation of vital signs during physical activity. ? Patient will be ability to perform required activities of daily living. ? Provide appropriate nutrition for healing and strength. ? Use appropriate to prevent falls. ? Continue physical therapy/occupational therapy. (11) HTN (hypertension): Code(s): I10 - Essential (primary) hypertension Status: Chronic Assessment and Plan: ? BP 146/88 Continue losartan 50 mg p.o. daily, metoprolol 150 mg
[2019-11-20] MEDS: HYDROcodone/acetaminophen (*CRX) 5-325 MG TABLET 1 TAB PO (14:03)
[2019-11-20 16:45] VITALS: BP 98/52; PULSE 79; RESP 18; TEMP 36.3; O2SAT 96
[2019-11-20 17:12] LABS: Glucose Point of Care 116 (65-105)
[2019-11-20 17:26] LABS: BNP 115 pg/mL (0-100)
--- NOTE | 2019-11-20 18:30 | PC.NURSE ---
Patient sleeping quietly in bed. No signs of distress noted, breathing even and unlabored. Call light and belongings within reach.
[2019-11-20] MEDS: NYSTATIN OINTMENT 15 GM TUBE 1 APPLIC TOPICAL (20:57)
[2019-11-20 23:30] VITALS: BP 132/65; PULSE 80; RESP 18; TEMP 37.1; O2SAT 93
--- NOTE | 2019-11-21 01:31 | PC.NURSE ---
pt resting in bed watching tv, pt had removed her oxygen cannula, assisted pt to put oxygen back on, denies any pain or other needs at this time.
[2019-11-21] MEDS: HYDROcodone/acetaminophen (*CRX) 5-325 MG TABLET 1 TAB PO ×2 (04:50→16:49)
[2019-11-21] MEDS: dilTIAZem HCL 30 MG TABLET 60 MG PO ×3 (04:52→21:27)
[2019-11-21 08:00] VITALS: BP 131/64; PULSE 95; RESP 20; TEMP 36.7; O2SAT 92
[2019-11-21 08:24] LABS: Glucose Point of Care 123 (65-105)
[2019-11-21] MEDS: ENOXAPARIN 40 MG/0.4 ML SYRINGE SUB-Q (08:47)
[2019-11-21] MEDS: metFORMIN HCL 500 MG TABLET PO ×2 (08:47→16:48)
[2019-11-21] MEDS: predniSONE 5 MG TABLET PO (08:47)
[2019-11-21] MEDS: LOSARTAN POTASSIUM 50 MG TABLET PO (08:47)
[2019-11-21 08:48] VITALS: PULSE 95
[2019-11-21] MEDS: ATORVASTATIN 10 MG TABLET PO (08:48)
[2019-11-21] MEDS: ASPIRIN 81 MG CHEWABLE TABLET PO (08:48)
[2019-11-21] MEDS: DULoxetine HCL 30 MG CAPSULE.DR 60 MG PO (08:48)
[2019-11-21] MEDS: oxyCODONE HCL (*CRX) 10 MG TAB SR 12HR PO ×2 (08:48→20:35)
[2019-11-21] MEDS: METOPROLOL SUCCINATE EXT REL 50 MG TABCR 150 MG PO (08:48)
[2019-11-21] MEDS: MAGNESIUM OXIDE 400 MG TABLET PO (08:48)
[2019-11-21] MEDS: MEGESTROL ACETATE (*CHEMO) 40 MG TABLET PO ×4 (08:48→20:35)
[2019-11-21] MEDS: TICAGRELOR 90 MG TABLET PO ×2 (08:49→16:48)
[2019-11-21 15:55] VITALS: BP 107/58; PULSE 86; RESP 18; TEMP 36.3; O2SAT 97
[2019-11-21 16:57] LABS: Glucose Point of Care 134 (65-105)
--- NOTE | 2019-11-21 19:20 | PC.NURSE ---
pt up to commode, stand and pivot with x1 assist, pt requests nurse leave the room as this may take awhile , call light placed in reach, pt reminded to call when finished
--- NOTE | 2019-11-21 19:40 | PC.NURSE ---
pt found back in bed upon entering room, pt reminded she needs to call for safety reasons, rails up, call light in reach, hob up, feet up,
[2019-11-21] MEDS: NYSTATIN OINTMENT 15 GM TUBE 1 APPLIC TOPICAL (20:35)
--- NOTE | 2019-11-21 22:22 | PC.NURSE ---
pt requests more pain meds, informed that she cant have more for another hour, pt is confused as to what time of day it is, reoriented, pt is still confused on time, rails up, 02 on
[2019-11-22] VITALS: BP 120/79; PULSE 90; RESP 20; TEMP 36.1; O2SAT 96
[2019-11-22] MEDS: HYDROcodone/acetaminophen (*CRX) 5-325 MG TABLET 1 TAB PO (01:02)
[2019-11-22 05:02] VITALS: BP 131/71; PULSE 86
[2019-11-22] MEDS: dilTIAZem HCL 30 MG TABLET 60 MG PO ×3 (05:06→19:50)
[2019-11-22 08:00] VITALS: BP 107/58; PULSE 74; RESP 20; TEMP 36.4; O2SAT 96
[2019-11-22 08:00] LABS: Glucose Point of Care 134 (65-105)
[2019-11-22] MEDS: predniSONE 5 MG TABLET PO (08:01)
[2019-11-22] MEDS: MAGNESIUM OXIDE 400 MG TABLET PO (08:02)
[2019-11-22] MEDS: oxyCODONE HCL (*CRX) 10 MG TAB SR 12HR PO ×2 (08:02→20:51)
[2019-11-22] MEDS: ENOXAPARIN 40 MG/0.4 ML SYRINGE SUB-Q (08:02)
[2019-11-22 08:03] VITALS: PULSE 74
[2019-11-22] MEDS: ATORVASTATIN 10 MG TABLET PO (08:03)
[2019-11-22] MEDS: metFORMIN HCL 500 MG TABLET PO ×2 (08:03→17:00)
[2019-11-22] MEDS: ASPIRIN 81 MG CHEWABLE TABLET PO (08:03)
[2019-11-22] MEDS: DULoxetine HCL 30 MG CAPSULE.DR 60 MG PO (08:03)
[2019-11-22] MEDS: METOPROLOL SUCCINATE EXT REL 50 MG TABCR 150 MG PO (08:03)
[2019-11-22] MEDS: LOSARTAN POTASSIUM 50 MG TABLET PO (08:04)
[2019-11-22] MEDS: MEGESTROL ACETATE (*CHEMO) 40 MG TABLET PO ×4 (08:04→20:54)
[2019-11-22] MEDS: TICAGRELOR 90 MG TABLET PO ×2 (08:39→17:00)
[2019-11-22] MEDS: ONDANSETRON HCL ODT 4 MG TABLET PO (08:41)
[2019-11-22 16:00] VITALS: BP 110/61; PULSE 83; RESP 20; TEMP 37; O2SAT 98
[2019-11-22 16:46] LABS: Glucose Point of Care 142 (65-105)
[2019-11-22] MEDS: NYSTATIN OINTMENT 15 GM TUBE 1 APPLIC TOPICAL (20:53)
[2019-11-23] VITALS: BP 134/78; PULSE 74; RESP 16; TEMP 36.3; O2SAT 97
[2019-11-23] MEDS: HYDROcodone/acetaminophen (*CRX) 5-325 MG TABLET 1 TAB PO ×3 (00:02→17:10)
--- NOTE | 2019-11-23 00:12 | PC.NURSE ---
Patient complaining of pain and stiffness in left arm and shoulder. PRN pain medicine given.
[2019-11-23] MEDS: dilTIAZem HCL 30 MG TABLET 60 MG PO ×3 (05:37→21:19)
[2019-11-23] MEDS: oxyCODONE HCL (*CRX) 10 MG TAB SR 12HR PO ×2 (07:54→21:20)
[2019-11-23 08:00] VITALS: BP 151/74; PULSE 95; RESP 20; TEMP 36.7; O2SAT 98
[2019-11-23 08:13] LABS: Glucose Point of Care 130 (65-105)
[2019-11-23] MEDS: DULoxetine HCL 30 MG CAPSULE.DR 60 MG PO (08:55)
[2019-11-23] MEDS: ENOXAPARIN 40 MG/0.4 ML SYRINGE SUB-Q (08:55)
[2019-11-23 08:56] VITALS: PULSE 95
[2019-11-23] MEDS: METOPROLOL SUCCINATE EXT REL 50 MG TABCR 150 MG PO (08:56)
[2019-11-23] MEDS: MEGESTROL ACETATE (*CHEMO) 40 MG TABLET PO ×4 (08:56→21:20)
[2019-11-23] MEDS: ASPIRIN 81 MG CHEWABLE TABLET PO (08:56)
[2019-11-23] MEDS: predniSONE 5 MG TABLET PO (08:57)
[2019-11-23] MEDS: ATORVASTATIN 10 MG TABLET PO (08:57)
[2019-11-23] MEDS: LOSARTAN POTASSIUM 50 MG TABLET PO (08:57)
[2019-11-23] MEDS: MAGNESIUM OXIDE 400 MG TABLET PO (08:57)
[2019-11-23] MEDS: metFORMIN HCL 500 MG TABLET PO ×2 (08:57→16:14)
[2019-11-23] MEDS: DOCUSATE SODIUM 100 MG CAPSULE PO ×2 (08:58→21:20)
[2019-11-23] MEDS: TICAGRELOR 90 MG TABLET PO ×2 (08:58→16:14)
[2019-11-23 16:00] VITALS: BP 146/71; PULSE 74; RESP 18; TEMP 36.2; O2SAT 94
[2019-11-23] MEDS: LORazepam (*CRX) 1 MG TABLET 0.5 MG BY MOUTH (16:18)
--- NOTE | 2019-11-23 16:20 | PC.NURSE ---
Patient C/O right hand pain. Dr. Dunbar notified. No injuries apparent.
[2019-11-23 16:39] LABS: Glucose Point of Care 184 (65-105)
--- NOTE | 2019-11-23 17:33 | PC.NURSE ---
Patient c/o right hand pain without injury. Sailmaker attempted ice, warm blanket, prn ativan and norco given
--- NOTE | 2019-11-23 19:41 | PC.NURSE ---
dr up to see pt about R hand pain, will order xray
[2019-11-23 21:15] VITALS: BP 142/73; PULSE 95; RESP 18; TEMP 36.8; O2SAT 98
[2019-11-23] MEDS: NYSTATIN OINTMENT 15 GM TUBE 1 APPLIC TOPICAL (21:19)
--- NOTE | 2019-11-23 21:38 | PC.NURSE ---
Patient very confused tonight only oriented to self. When life underwriter entered to give HS medications patient was observed biting the sleeve of her pajamas and stating that she was trying to clean her shirt. Patient was assisted up to bedside commode with heavy assist of two. Patient had a small amount of incontinent urine in her brief. She voided approximately 50 ml of tea colored urine in the commode. Patient spitting out pills, the only pill that she took was her scheduled pain medication. Charge nurse notified.
[2019-11-24] VITALS: BP 171/89; PULSE 97; RESP 18; TEMP 36.7; O2SAT 97
[2019-11-24] MEDS: dilTIAZem HCL 30 MG TABLET 60 MG PO ×3 (05:22→22:21)
[2019-11-24 05:27] VITALS: BP 177/91; PULSE 114
--- NOTE | 2019-11-24 05:32 | PC.NURSE ---
Patient combative this morning and she is making no sense when speaking. AM pills were crushed she took about half a spoon full. Charge nurse notified.
--- NOTE | 2019-11-24 06:09 | PC.NURSE ---
Dr Dunbar notified of patients combative behavior, confusion, and patient stating I can't move my arms or legs Patient is moving arms and legs with purpose. Also notified of poor eating habits and only 50ml charlene urine in last 12 hours. No New Orders at this time
[2019-11-24 07:15] VITALS: BP 185/90; PULSE 109; RESP 18; TEMP 37.1; O2SAT 96
[2019-11-24 07:28] LABS: Glucose Point of Care 166 (65-105)
[2019-11-24 08:34] VITALS: PULSE 109
[2019-11-24] MEDS: METOPROLOL SUCCINATE EXT REL 50 MG TABCR 150 MG PO (08:34)
[2019-11-24] MEDS: ACETAMINOPHEN 500 MG TABLET 1000 MG PO ×2 (08:35→17:09)
[2019-11-24] MEDS: metFORMIN HCL 500 MG TABLET PO ×2 (08:35→17:10)
[2019-11-24] MEDS: ASPIRIN 81 MG CHEWABLE TABLET PO (08:35)
[2019-11-24] MEDS: LOSARTAN POTASSIUM 50 MG TABLET PO (08:35)
--- NOTE | 2019-11-24 09:00 | PC.NURSE ---
Patient took half of medication in apple sauce. When nurse attempted to give patient second half of medication, the patient spit the medication out at nurse. Nurse assisted patient to reposition in bed. Resting with hob elevated. Clean depends applied. Call light at side. Bed rails up x3. here to visit with patient.
[2019-11-24 09:02] LABS: Hematocrit 36.4 % (35.0-42.0); Hemoglobin 11.7 g/dL (11.7-13.8); Mean Corpuscular HGB Conc 32.1 g/dL (32.0-36.0); Mean Corpuscular Hemoglobin 27.9 pg (27.0-31.0); Mean Corpuscular Volume 86.7 fL (78.0-102.0); Mean Platelet Volume 10.1 fl (9.2-11.8); Platelet Count Result 306 K/mm3 (150-420); Red Cell Distribution Width 13.7 % (11.6-14.4); White Blood Count 17.5 K/mm3 (4.8-10.8)
[2019-11-24 09:22] LABS: Alanine Aminotransferase 12 U/L (14-59); Albumin Level 3.2 g/dL (3.4-5.0); Alkaline Phosphatase 119 U/L (46-116); Anion Gap 9 mmol/L (8-16); Aspartate Amino Transferase < 10 U/L (15-37); Bilirubin,Total 0.6 mg/dL (0.00-1.00); Blood Urea Nitrogen 39 mg/dL (7-18); Calcium 9.3 mg/dL (8.5-10.1); Carbon Dioxide 30 mmol/L (21-32); Chloride 101 mmol/L (98-108); Estimated CRCL calculation 28 ml/min; Estimated Glomerular Filt Rate 36; Glucose 164 mg/dL (70-99); Osmolality Calculated 303 mOsm/kg (285-295); Potassium 4.6 mmol/L (3.5-5.1); Sodium 140 mmol/L (136-145); Total Protein 8.1 g/dL (6.4-8.2)
[2019-11-24] MEDS: LORazepam (*CRX) 1 MG TABLET BY MOUTH (10:30)
--- NOTE | 2019-11-24 11:15 | PC.NURSE ---
Patient taken down to xray via wheelchair by [employer] to have Head CT.
--- NOTE | 2019-11-24 11:17 | P.PN_ITS ---
Progress Note: A&P Assessment and Plan (1) COPD (chronic obstructive pulmonary disease): Code(s): J44.9 - Chronic obstructive pulmonary disease, unspecified <Michelle WhitfieldBONNIE Zamorano - Last Filed: 11/24/19 13:07> Status: Chronic <Michelle MaddoxELLAC - Last Filed: 11/24/19 13:07> Assessment and Plan: * Continue use of supplementary oxygen 4 to 5 L nasal cannula * Continue albuterol every 4 to 6 hours as needed,roflumilast 500mg dailyand umeclidinium daily * Continue prednisone 5 mg daily <Edisonstanislav RoseannYISEL Zamorano-C - Last Filed: 11/24/19 13:07> (2) Congestive heart failure: Code(s): I50.9 - Heart failure, unspecified <Michelle WhitfieldELLA ZamoranoC - Last Filed: 11/24/19 13:07> Status: Chronic <Edisonstanislav RoseannBONNIE Zamorano - Last Filed: 11/24/19 13:07> Assessment and Plan: * Compensated * Will start daily weights * Continue Lasix 20 mg p.o. as needed for edema * No edema or excessive short of breath noted <Edisonstanislav RoseannBONNIE Zamorano - Last Filed: 11/24/19 13:07> (3) Hyperlipidemia: Qualifiers: Hyperlipidemia type: mixed hyperlipidemia Qualified Code(s): E78.2 - Mixed hyperlipidemia <Michelle WhitfieldELLA ZamoranoC - Last Filed: 11/24/19 13:07> Code(s): E78.5 - Hyperlipidemia, unspecified <Michelle WhitfieldELLA ZamoranoC - Last Filed: 11/24/19 13:07> Status: Chronic <Michelle WhitfieldELLA ZamoranoC - Last Filed: 11/24/19 13:07> Assessment and Plan: * Continue atorvastatin <BONNIE Tobin - Last Filed: 11/24/19 13:07> (4) DM2 (diabetes mellitus, type 2): Qualifiers: Diabetes mellitus complication status: without complication Diabetes mellitus termite helper insulin use: without termite helper use Qualified Code(s): E11.9 - Type 2 diabetes mellitus without complications <BONNIE Tobin - Last Filed: 11/24/19 13:07> Code(s): E11.9 - Type 2 diabetes mellitus without complications <BONNIE Tboin - Last Filed: 11/24/19 13:07> Status: Chronic <BONNIE Tobni - Last Filed: 11/24/19 13:07> Assessment and Plan: * stable * Continue metformin 500 mg p.o. twice daily * We will continue to monitor and adjust as needed <ELLA TobinC - Last Filed: 11/24/19 13:07> (5) JOAQUIN (obstructive sleep apnea): Code(s): G47.33 - Obstructive sleep apnea (adult) (pediatric) <BONNIE Tobin - Last Filed: 11/24/19 13:07> Status: Chronic <BONNIE Tobin - Last Filed: 11/24/19 13:07> Assessment and Plan: * Continue use of BiPAP/CPAP <BONNIE Tobin - Last Filed: 11/24/19 13:07> (6) Closed intertrochanteric fracture of right hip: Qualifiers: Encounter type: initial encounter Fracture alignment: nondisplaced Qualified Code(s): S72.144A - Nondisplaced intertrochanteric fracture of right femur, initial encounter for closed fracture <ELLA TobinC - Last Filed: 11/24/19 13:07> Code(s): S72.141A - Displaced intertrochanteric fracture of right femur, initial encounter for closed fracture <YISEL Tobin-C - Last Filed: 11/24/19 13:07> Status: Acute <BONNIE Tobin - Last Filed: 11/24/19 13:07> Assessment and Plan: * Imaging indicates nondisplaced right hip intertrochanteric fx * Dr. Temple consulted at [facility] * Patient considered extremely high surgical risk. We will manage care nonoperative * Toe-touch weightbearing with transfer. Weightbearing status will change in approximately 6 weeks.pivot transfer onl
--- NOTE | 2019-11-24 11:17 | WPDPN ---
Progress Note: A&P Assessment and Plan (1) COPD (chronic obstructive pulmonary disease): Code(s): J44.9 - Chronic obstructive pulmonary disease, unspecified <Michelle Maddox ELLAC - Last Filed: 11/24/19 13:07> Status: Chronic <Michelle Maddox ELLAC - Last Filed: 11/24/19 13:07> Assessment and Plan: Continue use of supplementary oxygen 4 to 5 L nasal cannula Continue albuterol every 4 to 6 hours as needed,roflumilast 500mg dailyand umeclidinium daily Continue prednisone 5 mg daily <Michelle Maddox UNEMPLOYMENT BENEFITS CLAIMS TAKER-C - Last Filed: 11/24/19 13:07> (2) Congestive heart failure: Code(s): I50.9 - Heart failure, unspecified <Michelle Maddox UNEMPLOYMENT BENEFITS CLAIMS TAKER-C - Last Filed: 11/24/19 13:07> Status: Chronic <Michelle MaddoxBONNIE - Last Filed: 11/24/19 13:07> Assessment and Plan: Compensated Will start daily weights Continue Lasix 20 mg p.o. as needed for edema No edema or excessive short of breath noted <Michelle Maddox UNEMPLOYMENT BENEFITS CLAIMS TAKER-C - Last Filed: 11/24/19 13:07> (3) Hyperlipidemia: Qualifiers: Hyperlipidemia type: mixed hyperlipidemia Qualified Code(s): E78.2 - Mixed hyperlipidemia <Michelle Maddox UNEMPLOYMENT BENEFITS CLAIMS TAKER-C - Last Filed: 11/24/19 13:07> Code(s): E78.5 - Hyperlipidemia, unspecified <Michelle WhitfieldEl Tan UNEMPLOYMENT BENEFITS CLAIMS TAKER-C - Last Filed: 11/24/19 13:07> Status: Chronic <Michelle Maddox UNEMPLOYMENT BENEFITS CLAIMS TAKER-C - Last Filed: 11/24/19 13:07> Assessment and Plan: Continue atorvastatin <Michelle WhitfieldYISEL Zamorano-C - Last Filed: 11/24/19 13:07> (4) DM2 (diabetes mellitus, type 2): Qualifiers: Diabetes mellitus complication status: without complication Diabetes mellitus senior living insulin use: without senior living use Qualified Code(s): E11.9 - Type 2 diabetes mellitus without complications <Michelle WhitfieldEl Maddox UNEMPLOYMENT BENEFITS CLAIMS TAKER-C - Last Filed: 11/24/19 13:07> Code(s): E11.9 - Type 2 diabetes mellitus without complications <Michelle Maddox YISEL-C - Last Filed: 11/24/19 13:07> Status: Chronic <Michelle Maddox ELLAC - Last Filed: 11/24/19 13:07> Assessment and Plan: stable Continue metformin 500 mg p.o. twice daily We will continue to monitor and adjust as needed <Michelle Maddox ELLAC - Last Filed: 11/24/19 13:07> (5) JOAQUIN (obstructive sleep apnea): Code(s): G47.33 - Obstructive sleep apnea (adult) (pediatric) <Michelle Maddox ELLAC - Last Filed: 11/24/19 13:07> Status: Chronic <Michelle Maddox ELLAC - Last Filed: 11/24/19 13:07> Assessment and Plan: Continue use of BiPAP/CPAP <Michelle Maddox ELLAC - Last Filed: 11/24/19 13:07> (6) Closed intertrochanteric fracture of right hip: Qualifiers: Encounter type: initial encounter Fracture alignment: nondisplaced Qualified Code(s): S72.144A - Nondisplaced intertrochanteric fracture of right femur, initial encounter for closed fracture <Michelle Maddox YISEL-C - Last Filed: 11/24/19 13:07> Code(s): S72.141A - Displaced intertrochanteric fracture of right femur, initial encounter for closed fracture <Michelle WhitfieldEl Tan UNEMPLOYMENT BENEFITS CLAIMS TAKER-C - Last Filed: 11/24/19 13:07> Status: Acute <Michelle Maddox YISEL-C - Last Filed: 11/24/19 13:07> Assessment and Plan: Imaging indicates nondisplaced right hip intertrochanteric fx Dr. Temple consulted at [facility] Patient considered extremely high surgical risk. We will manage care nonoperative Toe-touch weightbearing with transfer. Weightbearing status will change in approximately 6 weeks.pivot transfer only Continue weekly x-rays requested by Dr. Temple next one for 11/26/19 Continue pain control <Edisonda BONNIE Prasad - Last Filed: 11/24/19 13:07> (7) Acute UTI: Code(s): N39.0 - Urinary tract infection, site not specified <BONNIE Tobin - Last Filed: 11/24/19 13:07> Status: Acute <Michelle Whitfield
[2019-11-24 11:27] LABS: RFT Charge Test YES; Rheumatoid Factor Screen Positive (Negative)
--- NOTE | 2019-11-24 11:30 | PC.NURSE ---
Patient back from having head CT done. Patient transfered from wheelchair to chair with 1 ast and gaitbelt/walker. Sitting up in chair resting. Call light and belongings provided.
[2019-11-24] MEDS: FLUoxetine HCL 10 MG CAPSULE 40 MG PO (12:54)
[2019-11-24] MEDS: MEGESTROL ACETATE (*CHEMO) 40 MG TABLET PO ×3 (12:55→20:34)
[2019-11-24] MEDS: SODIUM CHLORIDE 0.9% IV 1,000 ML 999 ML IV CONT (13:00)
[2019-11-24 15:30] VITALS: BP 139/80; PULSE 98; RESP 18; TEMP 36.8; O2SAT 100
[2019-11-24 16:07] LABS: Add Urine Microscopic? YES; Appearance Urine Cloudy (Clear); Bilirubin Urine Negative (Negative); Blood Urine 1+ (Negative); Color Urine Yellow (Yellow); Glucose Urine UA Negative (Negative); Ketones Urine Negative (Negative); Leukocyte Esterase Ur Negative (Negative); Nitrate Urine Negative (Negative); Protein Urine Trace (Negative); Urobilinogen Urine 0.2 mg/dL (0.2-1.0)
[2019-11-24 16:21] LABS: Bacteria Urine 1+ /hpf; Budding Yeast Urine Present /hpf; Squamous Epithelial Cell Urine Moderate /hpf (Few)
[2019-11-24] MEDS: TICAGRELOR 90 MG TABLET PO (17:10)
[2019-11-24 17:15] LABS: Glucose Point of Care 179 (65-105)
[2019-11-24 19:39] VITALS: BP 155/85; PULSE 98; RESP 20; TEMP 36.7; O2SAT 97
--- NOTE | 2019-11-24 19:44 | PC.NURSE ---
PT SLEEPING, AROUSES TO NAME AND ASSESSMENT. PT YELLS OUT WITH CARE, DOES NOT SPEAK WORDS OR ANSWER QUESTIONS. QUIET AT REST. APPEARS COMFORTABLE AT REST. SKIN CLEAN, WARM AND DRY. BED RAILS UP X3, CALL CATALAN IN REACH. BED EXIT ALARM ON.
[2019-11-24] MEDS: DOCUSATE SODIUM 100 MG CAPSULE PO (20:34)
[2019-11-24] MEDS: oxyCODONE HCL (*CRX) 10 MG TAB SR 12HR PO (20:34)
[2019-11-24] MEDS: NYSTATIN OINTMENT 15 GM TUBE 1 APPLIC TOPICAL (20:34)
--- NOTE | 2019-11-24 22:30 | PC.NURSE ---
PT SLEEPING. AWAKENS EASILY FOR MEDS. SWALLOWS WITHOUT DIFFICULTY. CPAP APPLIED, O2 ON AT 3L. PT VOICES NO COMPLAINTS. IMMEDIATELY BACK TO SLEEP AFTER CARE. CALL CATALAN IN REACH. BED ALARM ON, BED RAILS UP X3.
[2019-11-25] VITALS: BP 144/71; PULSE 94; RESP 18; TEMP 35.9; O2SAT 95
[2019-11-25] MEDS: ACETAMINOPHEN 500 MG TABLET 1000 MG PO ×3 (03:16→23:33)
[2019-11-25] MEDS: dilTIAZem HCL 30 MG TABLET 60 MG PO ×3 (05:42→21:20)
[2019-11-25 05:46] LABS: Hematocrit 31.6 % (35.0-42.0); Mean Corpuscular HGB Conc 31.6 g/dL (32.0-36.0); Mean Corpuscular Hemoglobin 27.5 pg (27.0-31.0); Mean Corpuscular Volume 86.8 fL (78.0-102.0); Mean Platelet Volume 10.4 fl (9.2-11.8); Platelet Count Result 266 K/mm3 (150-420); Red Blood Count 3.64 M/mm3 (4.20-5.40); Red Cell Distribution Width 13.8 % (11.6-14.4)
[2019-11-25 06:13] LABS: Alanine Aminotransferase 13 U/L (14-59); Albumin Level 2.7 g/dL (3.4-5.0); Alkaline Phosphatase 107 U/L (46-116); Anion Gap 11 mmol/L (8-16); Aspartate Amino Transferase 10 U/L (15-37); Bilirubin,Total 0.5 mg/dL (0.00-1.00); Blood Urea Nitrogen 33 mg/dL (7-18); Calcium 8.2 mg/dL (8.5-10.1); Carbon Dioxide 26 mmol/L (21-32); Chloride 105 mmol/L (98-108); Estimated CRCL calculation 36 ml/min; Estimated Glomerular Filt Rate 51; Glucose 117 mg/dL (70-99); Magnesium 1.6 mg/dL (1.8-2.4); Osmolality Calculated 302 mOsm/kg (285-295); Potassium 4.1 mmol/L (3.5-5.1); Sodium 142 mmol/L (136-145); Total Protein 6.1 g/dL (6.4-8.2)
[2019-11-25 07:40] VITALS: BP 100/53; PULSE 89; RESP 18; TEMP 36.4; O2SAT 98
[2019-11-25 07:47] LABS: Glucose Point of Care 150 (65-105)
[2019-11-25] MEDS: ENOXAPARIN 40 MG/0.4 ML SYRINGE SUB-Q (08:19)
[2019-11-25] MEDS: ASPIRIN 81 MG CHEWABLE TABLET PO (08:19)
[2019-11-25] MEDS: LOSARTAN POTASSIUM 50 MG TABLET PO (08:19)
[2019-11-25] MEDS: NYSTATIN OINTMENT 15 GM TUBE 1 APPLIC TOPICAL ×2 (08:19→20:39)
[2019-11-25] MEDS: FLUoxetine HCL 10 MG CAPSULE 40 MG PO (08:19)
[2019-11-25] MEDS: MEGESTROL ACETATE (*CHEMO) 40 MG TABLET PO ×4 (08:19→20:34)
[2019-11-25] MEDS: TICAGRELOR 90 MG TABLET PO ×2 (08:19→17:43)
[2019-11-25] MEDS: DOCUSATE SODIUM 100 MG CAPSULE PO ×2 (08:19→20:34)
[2019-11-25 08:20] VITALS: PULSE 89
[2019-11-25] MEDS: predniSONE 5 MG TABLET PO (08:20)
[2019-11-25] MEDS: metFORMIN HCL 500 MG TABLET PO ×2 (08:20→17:43)
[2019-11-25] MEDS: ATORVASTATIN 10 MG TABLET PO (08:20)
[2019-11-25] MEDS: METOPROLOL SUCCINATE EXT REL 50 MG TABCR 150 MG PO (08:20)
[2019-11-25] MEDS: MAGNESIUM OXIDE 400 MG TABLET PO ×2 (08:20→13:29)
[2019-11-25] MEDS: ALENDRONATE SODIUM 70 MG TABLET PO (08:28)
[2019-11-25 16:00] VITALS: BP 136/64; PULSE 68; RESP 16; TEMP 36.7; O2SAT 96
[2019-11-25 17:12] LABS: Glucose Point of Care 179 (65-105)
--- NOTE | 2019-11-25 19:33 | PC.NURSE ---
Patient resting in be with hob elevated watching tv. Reports no needs at present. Pt. reminded to use call light before getting up. Call light in reach.
[2019-11-25 20:35] VITALS: O2SAT 97
--- NOTE | 2019-11-25 22:21 | PC.NURSE ---
Patient sleeping quietly in bed, hob elevated. No signs of distress noted. Call hernandez in reach. 02@4l per nc on.
[2019-11-25 23:39] VITALS: BP 143/69; PULSE 85; RESP 16; TEMP 36.4; O2SAT 99
[2019-11-26] MEDS: ONDANSETRON HCL ODT 4 MG TABLET PO (01:57)
--- NOTE | 2019-11-26 02:00 | PC.NURSE ---
Pt c/o feeling nauseated; Pt given Zofran 4 mg PO as ordered to relieve nausea.
[2019-11-26] MEDS: hydrOXYzine pamoate 25 MG CAPSULE PO (04:48)
[2019-11-26] MEDS: dilTIAZem HCL 30 MG TABLET 60 MG PO ×3 (05:28→21:09)
--- NOTE | 2019-11-26 05:29 | PC.NURSE ---
Pulse 80.
--- NOTE | 2019-11-26 05:33 | PC.NURSE ---
Pt expelled moderate amt liquid brown stool. in BSC.
[2019-11-26] MEDS: ACETAMINOPHEN 500 MG TABLET 1000 MG PO (07:40)
[2019-11-26 07:45] LABS: Glucose Point of Care 166 (65-105)
[2019-11-26 08:00] VITALS: BP 144/69; PULSE 106; RESP 16; TEMP 36.4; O2SAT 100
[2019-11-26] MEDS: ENOXAPARIN 40 MG/0.4 ML SYRINGE SUB-Q (08:35)
[2019-11-26] MEDS: TICAGRELOR 90 MG TABLET PO ×2 (08:35→16:37)
[2019-11-26 08:36] VITALS: PULSE 106
[2019-11-26] MEDS: METOPROLOL SUCCINATE EXT REL 50 MG TABCR 150 MG PO (08:36)
[2019-11-26] MEDS: NYSTATIN OINTMENT 15 GM TUBE 1 APPLIC TOPICAL ×2 (08:36→21:10)
[2019-11-26] MEDS: MAGNESIUM OXIDE 400 MG TABLET PO ×2 (08:36→08:37)
[2019-11-26] MEDS: metFORMIN HCL 500 MG TABLET PO ×2 (08:36→16:37)
[2019-11-26] MEDS: LOSARTAN POTASSIUM 50 MG TABLET PO (08:36)
[2019-11-26] MEDS: FLUoxetine HCL 10 MG CAPSULE 40 MG PO (08:36)
[2019-11-26] MEDS: ATORVASTATIN 10 MG TABLET PO (08:37)
[2019-11-26] MEDS: predniSONE 5 MG TABLET PO (08:37)
[2019-11-26] MEDS: DOCUSATE SODIUM 100 MG CAPSULE PO (08:37)
[2019-11-26] MEDS: MEGESTROL ACETATE (*CHEMO) 40 MG TABLET PO ×4 (08:37→21:09)
[2019-11-26] MEDS: ASPIRIN 81 MG CHEWABLE TABLET PO (08:37)
[2019-11-26] MEDS: oxyCODONE HCL (*CRX) 5 MG TAB IR PO ×2 (08:54→21:09)
[2019-11-26 16:00] VITALS: BP 143/69; PULSE 90; RESP 18; TEMP 37.2; O2SAT 100
[2019-11-26 17:02] LABS: Glucose Point of Care 129 (65-105)
[2019-11-26 23:48] VITALS: BP 150/72; PULSE 92; RESP 16; TEMP 36.6; O2SAT 98
--- NOTE | 2019-11-27 04:34 | PC.NURSE ---
Pt expeliled moderate amt of liquid brown stool.in BSC
[2019-11-27] MEDS: dilTIAZem HCL 30 MG TABLET 60 MG PO ×3 (05:47→20:45)
--- NOTE | 2019-11-27 05:47 | PC.NURSE ---
HR 88
[2019-11-27 07:37] LABS: Glucose Point of Care 121 (65-105)
[2019-11-27 07:52] VITALS: BP 161/75; PULSE 92; RESP 18; TEMP 36.8; O2SAT 98
[2019-11-27] MEDS: ENOXAPARIN 40 MG/0.4 ML SYRINGE SUB-Q (08:46)
[2019-11-27] MEDS: metFORMIN HCL 500 MG TABLET PO ×2 (08:47→16:37)
[2019-11-27] MEDS: FLUoxetine HCL 10 MG CAPSULE 40 MG PO (08:47)
[2019-11-27] MEDS: TICAGRELOR 90 MG TABLET PO ×2 (08:47→16:37)
[2019-11-27 08:48] VITALS: PULSE 92
[2019-11-27] MEDS: METOPROLOL SUCCINATE EXT REL 50 MG TABCR 150 MG PO (08:48)
[2019-11-27] MEDS: ATORVASTATIN 10 MG TABLET PO (08:48)
[2019-11-27] MEDS: predniSONE 5 MG TABLET PO (08:49)
[2019-11-27] MEDS: LOSARTAN POTASSIUM 50 MG TABLET PO (08:49)
[2019-11-27] MEDS: MAGNESIUM OXIDE 400 MG TABLET PO (08:49)
[2019-11-27] MEDS: MEGESTROL ACETATE (*CHEMO) 40 MG TABLET PO ×4 (08:50→20:46)
[2019-11-27] MEDS: ASPIRIN 81 MG CHEWABLE TABLET PO (08:50)
[2019-11-27] MEDS: NYSTATIN OINTMENT 15 GM TUBE 1 APPLIC TOPICAL (08:50)
[2019-11-27] MEDS: ONDANSETRON HCL ODT 4 MG TABLET PO (09:23)
--- NOTE | 2019-11-27 09:29 | PC.NURSE ---
Nauseated, given zofran and back to bed
--- NOTE | 2019-11-27 10:01 | PC.NURSE ---
Sleeping, no emesis, here
[2019-11-27] MEDS: THERAPEUTIC MULTIVITAMINS/MINERALS TAB (*BKC) 1 TABLET PO (10:55)
--- NOTE | 2019-11-27 11:19 | PM.IMPN ---
Progress Note: A&P Assessment and Plan (1) COPD (chronic obstructive pulmonary disease): Code(s): J44.9 - Chronic obstructive pulmonary disease, unspecified Status: Chronic Assessment and Plan: Continue use of supplementary oxygen 4 to 5 L nasal cannula Continue albuterol every 4 to 6 hours as needed,roflumilast 500mg daily and umeclidinium daily Continue prednisone 5 mg daily 11/27/2019 Continue as above, patient has no complaints of respiratory issues at this time (2) Congestive heart failure: Code(s): I50.9 - Heart failure, unspecified Status: Chronic Assessment and Plan: Compensated Will start daily weights Continue Lasix 20 mg p.o. as needed for edema No edema or excessive short of breath noted 11/27/2019 lung sounds are clear, no respiratory distress no shortness of breath no increased work of breathing, lower extremities are without edema (3) Hyperlipidemia: Qualifiers: Hyperlipidemia type: mixed hyperlipidemia Qualified Code(s): E78.2 - Mixed hyperlipidemia Code(s): E78.5 - Hyperlipidemia, unspecified Status: Chronic Assessment and Plan: Continue atorvastatin 11/27/2019 continue with home medication (4) DM2 (diabetes mellitus, type 2): Qualifiers: Diabetes mellitus intermission coordinator insulin use: without intermission coordinator use Diabetes mellitus complication status: without complication Qualified Code(s): E11.9 - Type 2 diabetes mellitus without complications Code(s): E11.9 - Type 2 diabetes mellitus without complications Status: Chronic Assessment and Plan: stable Continue metformin 500 mg p.o. twice daily We will continue to monitor and adjust as needed 11/27/2019 glucose level stable 150s to 170s or so, continue with regimen (5) JOAQUIN (obstructive sleep apnea): Code(s): G47.33 - Obstructive sleep apnea (adult) (pediatric) Status: Chronic Assessment and Plan: Continue use of BiPAP/CPAP 11/27/2019 patient continues to use CPAP at night, no issues reported from night staff (6) Closed intertrochanteric fracture of right hip: Qualifiers: Encounter type: initial encounter Fracture alignment: nondisplaced Qualified Code(s): S72.144A - Nondisplaced intertrochanteric fracture of right femur, initial encounter for closed fracture Code(s): S72.141A - Displaced intertrochanteric fracture of right femur, initial encounter for closed fracture Status: Acute Assessment and Plan: Imaging indicates nondisplaced right hip intertrochanteric fx Dr. Temple consulted at [facility] Patient considered extremely high surgical risk. We will manage care nonoperative Toe-touch weightbearing with transfer. Weightbearing status will change in approximately 6 weeks.pivot transfer only Continue weekly x-rays requested by Dr. Temple next one for 11/26/19 Continue pain control 11/27/2019 Patient will require wheelchair for mobility related to right hip fracture with toe-touch weight-bearing as only restriction. Use of cane or walker would not provide adequate support. left message at Dr. Gray's office as to how he would like to proceed. There was a case management meeting today physical therapy would like to have recertification for another week. Patient and would rather be discharged this Tuesday. According to physical therapy patient has been progressing well. And her pain has been managed adequately per the patient. Multivitamin added today. (7) Acute UTI: Code(s): N39.0 - Urinary tract infection, site not specified Status: Acute Assessment and Plan: Resolved Patient completed Levaquin yesterday Repeat UA does not indicate UTI 11/27/2019 resolved, patient has not had any other complaints of urinary issues (8) CAD (coronary artery disease): Code(s): I25.10 - Atherosclerotic heart disease of [place] coronary artery without angina pectoris
--- NOTE | 2019-11-27 13:48 | PC.NURSE ---
Up to BSC with use of gait belt and walker, tolerated well,
--- NOTE | 2019-11-27 14:26 | PC.NURSE ---
Resting in bed, no emesis, still some nauseated, using over head trapeze in bed to position self,
[2019-11-27 15:04] VITALS: BP 158/75; PULSE 91; RESP 22; TEMP 36.4; O2SAT 96
[2019-11-27 16:42] LABS: Glucose Point of Care 236 (65-105)
--- NOTE | 2019-11-27 18:41 | PC.NURSE ---
pt requests tylenol for pain, has brought her [employer] for dinner, up to commode and back to bed
[2019-11-27] MEDS: ACETAMINOPHEN 500 MG TABLET 1000 MG PO (18:45)
[2019-11-27] MEDS: oxyCODONE HCL (*CRX) 5 MG TAB IR PO (20:46)
[2019-11-27 23:24] VITALS: BP 132/71; PULSE 74; RESP 18; TEMP 35.8; O2SAT 97
[2019-11-28] MEDS: dilTIAZem HCL 30 MG TABLET 60 MG PO ×3 (04:50→21:05)
[2019-11-28] MEDS: oxyCODONE HCL (*CRX) 5 MG TAB IR PO ×2 (04:50→19:17)
--- NOTE | 2019-11-28 04:56 | PC.NURSE ---
22 gauge to left hand removed intact.
[2019-11-28 05:38] LABS: Mean Corpuscular HGB Conc 30.3 g/dL (32.0-36.0); Mean Corpuscular Volume 89.2 fL (78.0-102.0); Mean Platelet Volume 10.1 fl (9.2-11.8); Platelet Count Result 344 K/mm3 (150-420); White Blood Count 9.8 K/mm3 (4.8-10.8)
[2019-11-28 05:56] LABS: Alanine Aminotransferase 7 U/L (14-59); Albumin Level 2.7 g/dL (3.4-5.0); Alkaline Phosphatase 138 U/L (46-116); Anion Gap 9 mmol/L (8-16); Aspartate Amino Transferase < 10 U/L (15-37); Bilirubin,Total 0.3 mg/dL (0.00-1.00); Blood Urea Nitrogen 28 mg/dL (7-18); Calcium 8.5 mg/dL (8.5-10.1); Carbon Dioxide 28 mmol/L (21-32); Chloride 105 mmol/L (98-108); Estimated CRCL calculation 36 ml/min; Estimated Glomerular Filt Rate 50; Glucose 154 mg/dL (70-99); Magnesium 1.7 mg/dL (1.8-2.4); Osmolality Calculated 302 mOsm/kg (285-295); Potassium 3.8 mmol/L (3.5-5.1); Sodium 142 mmol/L (136-145); Total Protein 6.3 g/dL (6.4-8.2)
[2019-11-28 07:30] VITALS: BP 135/69; PULSE 96; RESP 18; TEMP 36.2; O2SAT 97
[2019-11-28 07:42] LABS: Glucose Point of Care 154 (65-105)
[2019-11-28] MEDS: TICAGRELOR 90 MG TABLET PO ×2 (08:45→16:57)
[2019-11-28] MEDS: FLUoxetine HCL 10 MG CAPSULE 40 MG PO (08:45)
[2019-11-28] MEDS: NYSTATIN OINTMENT 15 GM TUBE 1 APPLIC TOPICAL (08:45)
[2019-11-28] MEDS: THERAPEUTIC MULTIVITAMINS/MINERALS TAB (*BKC) 1 TABLET PO (08:45)
[2019-11-28] MEDS: MEGESTROL ACETATE (*CHEMO) 40 MG TABLET PO ×4 (08:45→21:06)
[2019-11-28 08:46] VITALS: PULSE 98
[2019-11-28] MEDS: metFORMIN HCL 500 MG TABLET PO ×2 (08:46→16:57)
[2019-11-28] MEDS: predniSONE 5 MG TABLET PO (08:46)
[2019-11-28] MEDS: LOSARTAN POTASSIUM 50 MG TABLET PO (08:46)
[2019-11-28] MEDS: ATORVASTATIN 10 MG TABLET PO (08:46)
[2019-11-28] MEDS: METOPROLOL SUCCINATE EXT REL 50 MG TABCR 150 MG PO (08:46)
[2019-11-28] MEDS: ASPIRIN 81 MG CHEWABLE TABLET PO (08:46)
[2019-11-28] MEDS: MAGNESIUM OXIDE 400 MG TABLET PO (08:46)
[2019-11-28] MEDS: ENOXAPARIN 40 MG/0.4 ML SYRINGE SUB-Q (08:47)
[2019-11-28] MEDS: ONDANSETRON HCL ODT 4 MG TABLET PO (13:53)
[2019-11-28 16:00] VITALS: BP 135/78; PULSE 85; RESP 18; TEMP 36.3; O2SAT 98
[2019-11-28 17:02] LABS: Glucose Point of Care 156 (65-105)
[2019-11-28 20:00] VITALS: PULSE 96; RESP 18; O2SAT 95
[2019-11-28] MEDS: ACETAMINOPHEN 500 MG TABLET 1000 MG PO (21:06)
--- NOTE | 2019-11-28 22:41 | PC.NURSE ---
Resting in bed, no evidence of pain noted, oxygen on at 4L NC
--- NOTE | 2019-11-28 23:38 | PC.NURSE ---
Up to BSC, gait belt, walker and stand by assist, tolerated fairly well
[2019-11-28 23:39] VITALS: BP 150/76; PULSE 85; RESP 20; TEMP 36.1; O2SAT 95
[2019-11-29] MEDS: oxyCODONE HCL (*CRX) 5 MG TAB IR PO ×3 (01:58→20:28)
--- NOTE | 2019-11-29 04:00 | PC.NURSE ---
Sleeping, no evidence of pain noted
[2019-11-29] MEDS: dilTIAZem HCL 30 MG TABLET 60 MG PO ×3 (05:10→21:18)
--- NOTE | 2019-11-29 05:26 | PC.NURSE ---
Patient wanting to clean up at this time, warm cloths given and washed herself, up to commode, dressed with assist and then to chair to sit up, states feeling good this am
--- NOTE | 2019-11-29 06:11 | PC.NURSE ---
Assisted patient back to bed from chair, SBA only, able to get self up and toe touch ambulate from chair with use of walker,
[2019-11-29 07:42] LABS: Glucose Point of Care 130 (65-105)
[2019-11-29 08:00] VITALS: BP 129/66; PULSE 80; RESP 18; TEMP 36.7; O2SAT 100
[2019-11-29] MEDS: ASPIRIN 81 MG CHEWABLE TABLET PO (08:09)
[2019-11-29 08:51] VITALS: PULSE 74
[2019-11-29] MEDS: predniSONE 5 MG TABLET PO (08:51)
[2019-11-29] MEDS: THERAPEUTIC MULTIVITAMINS/MINERALS TAB (*BKC) 1 TABLET PO (08:51)
[2019-11-29] MEDS: ENOXAPARIN 40 MG/0.4 ML SYRINGE SUB-Q (08:51)
[2019-11-29] MEDS: TICAGRELOR 90 MG TABLET PO ×2 (08:51→16:52)
[2019-11-29] MEDS: METOPROLOL SUCCINATE EXT REL 50 MG TABCR 150 MG PO (08:51)
[2019-11-29] MEDS: DOCUSATE SODIUM 100 MG CAPSULE PO (08:52)
[2019-11-29] MEDS: MAGNESIUM OXIDE 400 MG TABLET PO (08:52)
[2019-11-29] MEDS: metFORMIN HCL 500 MG TABLET PO ×2 (08:52→16:51)
[2019-11-29] MEDS: MEGESTROL ACETATE (*CHEMO) 40 MG TABLET PO ×4 (08:52→20:27)
[2019-11-29] MEDS: FLUoxetine HCL 10 MG CAPSULE 40 MG PO (08:52)
[2019-11-29] MEDS: LOSARTAN POTASSIUM 50 MG TABLET PO (08:52)
[2019-11-29] MEDS: ATORVASTATIN 10 MG TABLET PO (08:52)
[2019-11-29 09:50] LABS: Anti Cyclic Citrullinated Pept 77 Units (<20)
--- NOTE | 2019-11-29 10:30 | PC.NURSE ---
To bed per patient request with assist of OT. Call hernandez in reach. Reminded to call with needs.
[2019-11-29] MEDS: ONDANSETRON HCL ODT 4 MG TABLET PO (12:11)
--- NOTE | 2019-11-29 12:11 | PC.NURSE ---
Pt refuses to get up for lunch. States she has rolling pain in her abd. Rates a 10. Also complains of nausea. Explained pain medication schedule. Zofran 4mg given for nausea. Eating lunch without difficulty.
--- NOTE | 2019-11-29 14:15 | PC.NURSE ---
Up in chair. Has no complaints. present. Call hernandez in reach. Reminded to call with needs.
[2019-11-29 16:00] VITALS: BP 147/62; PULSE 72; RESP 16; TEMP 36.4; O2SAT 96
[2019-11-29 17:10] LABS: Glucose Point of Care 184 (65-105)
[2019-11-29 23:59] VITALS: BP 148/73; PULSE 80; RESP 20; TEMP 36.4; O2SAT 99
[2019-11-30] MEDS: dilTIAZem HCL 30 MG TABLET 60 MG PO (05:11)
--- NOTE | 2019-11-30 07:26 | P.DS_ITS ---
DS: Admitting Diagnosis Admitting Diagnosis Admitting Diagnosis: Rehabilitation See below for Dxs DS: Discharge Diagnosis Discharge Diagnosis (1) COPD (chronic obstructive pulmonary disease): Code(s): J44.9 - Chronic obstructive pulmonary disease, unspecified Status: Chronic Assessment and Plan: * Continue use of supplementary oxygen 4 to 5 L nasal cannula * Continue albuterol every 4 to 6 hours as needed,roflumilast 500mg daily and umeclidinium daily * Continue prednisone 5 mg daily 11/27/2019 Continue as above, patient has no complaints of respiratory issues at this time 11/30/2019 patient does not have any respiratory complaints at this time (2) Congestive heart failure: Code(s): I50.9 - Heart failure, unspecified Status: Chronic Assessment and Plan: * Compensated * Will start daily weights * Continue Lasix 20 mg p.o. as needed for edema * No edema or excessive short of breath noted 11/27/2019 lung sounds are clear, no respiratory distress no shortness of breath no increased work of breathing, lower extremities are without edema 11/30/2019 lungs are clear, no respiratory complaints no shortness of breath and no increased work of breathing, lower extremities without edema (3) Hyperlipidemia: Qualifiers: Hyperlipidemia type: mixed hyperlipidemia Qualified Code(s): E78.2 - Mixed hyperlipidemia Code(s): E78.5 - Hyperlipidemia, unspecified Status: Chronic Assessment and Plan: * Continue atorvastatin 11/27/2019 continue with home medication 11/30/2019 continue home medication on discharge (4) DM2 (diabetes mellitus, type 2): Qualifiers: Diabetes mellitus complication status: without complication Diabetes mellitus roasterman insulin use: without roasterman use Qualified Code(s): E11.9 - Type 2 diabetes mellitus without complications Code(s): E11.9 - Type 2 diabetes mellitus without complications Status: Chronic Assessment and Plan: * stable * Continue metformin 500 mg p.o. twice daily * We will continue to monitor and adjust as needed 11/27/2019 glucose level stable 150s to 170s or so, continue with regimen 11/30/2019 continue home medication on discharge (5) JOAQUIN (obstructive sleep apnea): Code(s): G47.33 - Obstructive sleep apnea (adult) (pediatric) Status: Chronic Assessment and Plan: * Continue use of BiPAP/CPAP 11/27/2019 patient continues to use CPAP at night, no issues reported from night staff 11/30/2019 no issues reported from night staff, patient discharged to home and should continue to use her CPAP than (6) Closed intertrochanteric fracture of right hip: Qualifiers: Encounter type: initial encounter Fracture alignment: nondisplaced Qualified Code(s): S72.144A - Nondisplaced intertrochanteric fracture of right femur, initial encounter for closed fracture Code(s): S72.141A - Displaced intertrochanteric fracture of right femur, initial encounter for closed fracture Status: Acute Assessment and Plan: * Imaging indicates nondisplaced right hip intertrochanteric fx * Dr. Temple consulted at [facility] * Patient considered extremely high surgical risk. We will manage care nonoperative * Toe-touch weightbearing with transfer. Weightbearing status will change in approximately 6 weeks.pivot transfer only * Continue weekly x-rays requested by Dr. Temple next one for 11/26/19 * Continue pain control 11/27/2019 Patient will require wheelchair for mobility related to right hip fracture with toe-
--- NOTE | 2019-11-30 07:26 | PM.DS ---
DS: Admitting Diagnosis Admitting Diagnosis Admitting Diagnosis: Rehabilitation See below for Dxs DS: Discharge Diagnosis Discharge Diagnosis (1) COPD (chronic obstructive pulmonary disease): Code(s): J44.9 - Chronic obstructive pulmonary disease, unspecified Status: Chronic Assessment and Plan: Continue use of supplementary oxygen 4 to 5 L nasal cannula Continue albuterol every 4 to 6 hours as needed,roflumilast 500mg daily and umeclidinium daily Continue prednisone 5 mg daily 11/27/2019 Continue as above, patient has no complaints of respiratory issues at this time 11/30/2019 patient does not have any respiratory complaints at this time (2) Congestive heart failure: Code(s): I50.9 - Heart failure, unspecified Status: Chronic Assessment and Plan: Compensated Will start daily weights Continue Lasix 20 mg p.o. as needed for edema No edema or excessive short of breath noted 11/27/2019 lung sounds are clear, no respiratory distress no shortness of breath no increased work of breathing, lower extremities are without edema 11/30/2019 lungs are clear, no respiratory complaints no shortness of breath and no increased work of breathing, lower extremities without edema (3) Hyperlipidemia: Qualifiers: Hyperlipidemia type: mixed hyperlipidemia Qualified Code(s): E78.2 - Mixed hyperlipidemia Code(s): E78.5 - Hyperlipidemia, unspecified Status: Chronic Assessment and Plan: Continue atorvastatin 11/27/2019 continue with home medication 11/30/2019 continue home medication on discharge (4) DM2 (diabetes mellitus, type 2): Qualifiers: Diabetes mellitus complication status: without complication Diabetes mellitus technician terminal and repeater insulin use: without [facility] use Qualified Code(s): E11.9 - Type 2 diabetes mellitus without complications Code(s): E11.9 - Type 2 diabetes mellitus without complications Status: Chronic Assessment and Plan: stable Continue metformin 500 mg p.o. twice daily We will continue to monitor and adjust as needed 11/27/2019 glucose level stable 150s to 170s or so, continue with regimen 11/30/2019 continue home medication on discharge (5) JOAQUIN (obstructive sleep apnea): Code(s): G47.33 - Obstructive sleep apnea (adult) (pediatric) Status: Chronic Assessment and Plan: Continue use of BiPAP/CPAP 11/27/2019 patient continues to use CPAP at night, no issues reported from night staff 11/30/2019 no issues reported from night staff, patient discharged to home and should continue to use her CPAP than (6) Closed intertrochanteric fracture of right hip: Qualifiers: Encounter type: initial encounter Fracture alignment: nondisplaced Qualified Code(s): S72.144A - Nondisplaced intertrochanteric fracture of right femur, initial encounter for closed fracture Code(s): S72.141A - Displaced intertrochanteric fracture of right femur, initial encounter for closed fracture Status: Acute Assessment and Plan: Imaging indicates nondisplaced right hip intertrochanteric fx Dr. Temple consulted at [facility] Patient considered extremely high surgical risk. We will manage care nonoperative Toe-touch weightbearing with transfer. Weightbearing status will change in approximately 6 weeks.pivot transfer only Continue weekly x-rays requested by Dr. Temple next one for 11/26/19 Continue pain control 11/27/2019 Patient will require wheelchair for mobility related to right hip fracture with toe-touch weight-bearing as only restriction. Use of cane or walker would not provide adequate support. left message at Dr. Gray's office as to how he would like to proceed. There was a case management meeting today physical therapy would like to have recertification for another week. Patient and would rather be discharged this Tuesday. According to physical therapy patient has been progre
[2019-11-30 07:33] LABS: Glucose Point of Care 167 (65-105)
[2019-11-30 07:47] VITALS: BP 111/57; PULSE 88; RESP 18; TEMP 36.3; O2SAT 99
[2019-11-30] MEDS: FLUoxetine HCL 10 MG CAPSULE 40 MG PO (08:19)
[2019-11-30] MEDS: DOCUSATE SODIUM 100 MG CAPSULE PO (08:19)
[2019-11-30] MEDS: METOPROLOL SUCCINATE EXT REL 50 MG TABCR 150 MG PO (08:19)
[2019-11-30] MEDS: MEGESTROL ACETATE (*CHEMO) 40 MG TABLET PO (08:19)
[2019-11-30] MEDS: ASPIRIN 81 MG CHEWABLE TABLET PO (08:19)
[2019-11-30] MEDS: MAGNESIUM OXIDE 400 MG TABLET PO (08:20)
[2019-11-30] MEDS: metFORMIN HCL 500 MG TABLET PO (08:20)
[2019-11-30] MEDS: ATORVASTATIN 10 MG TABLET PO (08:20)
[2019-11-30] MEDS: predniSONE 5 MG TABLET PO (08:20)
[2019-11-30] MEDS: LOSARTAN POTASSIUM 50 MG TABLET PO (08:20)
[2019-11-30] MEDS: THERAPEUTIC MULTIVITAMINS/MINERALS TAB (*BKC) 1 TABLET PO (08:20)
[2019-11-30] MEDS: TICAGRELOR 90 MG TABLET PO (08:21)
[2019-11-30] MEDS: ENOXAPARIN 40 MG/0.4 ML SYRINGE SUB-Q (08:21)
--- NOTE | 2019-11-30 10:15 | PC.NURSE ---
Addendum entered by Karmen Hamilton RN 11/30/19 10:39: Manav CONSTANTINO in room to evaluate patient at this time. Original Note: This nurse walking by patient room and noted patient sitting on floor by end of bed. Patient states she has no pain at present. Patient states she was hot and wanted to get out of bed so she sat on the floor. Denies falling. No injuries noted. 2x nurses assist patient to standing position, patient denies any dizziness. Patient sat on side of bed for minute, transferred from bed to chair. Currently sitting up in chair with call light at side, patient reminded to call for assist before getting up.
[2019-11-30 11:36] LABS: Glucose Point of Care 185 (65-105)
--- NOTE | 2019-11-30 16:36 | PM.EVENT ---
Event Note Event Note Event Note: I have examined the patient and reviewed the charts. I discussed the patient's care with Stevo Kaiser APN and agree with his assessment and plan.
== END 2019-11-30 13:10 | disposition home health service (06) | DRG 560 ==
PROVIDERS: Family Medicine; Nurse Practitioner; Nurse Practitioner Family; Admitting Provider Emergency Medicine; PCP Family Medicine Sports Medicine; Visit Provider Emergency Medicine
DX: S72.141D Displaced intertrochanteric fracture of right femur, subsequent encounter for closed fracture with routine healing (principal); N39.0 Urinary tract infection, site not specified; I48.20 Chronic atrial fibrillation, unspecified; I47.1 Supraventricular tachycardia; I11.0 Hypertensive heart disease with heart failure; I50.9 Heart failure, unspecified; I25.10 Atherosclerotic heart disease of native coronary artery without angina pectoris; J44.9 Chronic obstructive pulmonary disease, unspecified; E11.40 Type 2 diabetes mellitus with diabetic neuropathy, unspecified; E78.5 Hyperlipidemia, unspecified; K21.9 Gastro-esophageal reflux disease without esophagitis; M06.9 Rheumatoid arthritis, unspecified; M79.643 Pain in unspecified hand; R07.9 Chest pain, unspecified; R41.0 Disorientation, unspecified; G47.33 Obstructive sleep apnea (adult) (pediatric); F41.9 Anxiety disorder, unspecified; F32.9 Major depressive disorder, single episode, unspecified; Z99.81 Dependence on supplemental oxygen; Z95.5 Presence of coronary angioplasty implant and graft; Z87.442 Personal history of urinary calculi; Z87.891 Personal history of nicotine dependence
CPT/HCPCS: 36415; 36600; 70450; 71045; 71275; 73130; 73502; 80048; 80053; 81001; 82805; 83735; 83880; 84484; 85027; 85380; 86038; 86140; 86200; 86430; 86431; 87040; 87086; 87088; 93005; 97110; 97161; 97165; 97530; 97535; A9270; J1650; J7030; J7512; Q9965

== ENCOUNTER 2019-12-31 15:00 | Inpatient (IN) | payer MEDICARE, SELFPAY ==
[2019-12-31] VITALS (11 sets, daily range): BP systolic 108–171; BP diastolic 60–87; PULSE 109–187; RESP 18–25; TEMP 36.6–37; O2SAT 18–100; BMI 22.3
--- NOTE | ~2019-12-31 | XR_ITS ---
EXAMINATION: XR chest 1V portable DATE: 12/31/2019 15:31 INDICATION: Atrial fibrillation. TECHNIQUE: A single frontal view of the chest was obtained on 2 radiographs. COMPARISON: Chest single view 11/24/2019, chest CT 11/20/2019 FINDINGS: There are chronic interstitial opacities in the lungs, consistent with emphysema. No pleura l effusion or pneumothorax. The heart size is normal. IMPRESSION: 1. Emphysema. Reviewed, dictated and finalized at location A. RETTE MAKING MACHINE CATCHER IMPRESSION: 1. Emphysema.
--- NOTE | ~2019-12-31 | US_ITS ---
EXAMINATION: US venous doppler [facility] DATE: 01/01/2020 15:20 INDICATION: Shortness of breath. Tachycardia and immobility. TECHNIQUE: Grayscale ultrasound images without and with compression and Doppler ultrasound images of the bilateral lower extremity veins were obtained. COMPARISON: None. FINDINGS: The visualized portions of right common femoral vein, profunda (deep) femoral vein, femoral vein, pop liteal vein, posterior tibial veins, peroneal veins, gastrocnemius vein and greater saphenous vein ou tflow are patent. Incidentally noted is a segment of the mid right femoral artery with significantly decreased color signal on color Doppler imaging but with low velocity pulsatile flow on spectral Dopp ler imaging. The visualized portions of left common femoral vein, profunda femoral vein, femoral vein, popliteal v ein, posterior tibial veins, peroneal veins, gastrocnemius vein and greater saphenous vein outflow ar e patent. IMPRESSION: 1. No deep venous thrombosis in either lower limb. 2. Segment of significantly decreased vascular flow on color Doppler imaging at the mid right femoral artery suggesting a hemodynamically significant stenosis. Could consider lower extremity arterial Do ppler study with segmental pressures and DAVINA and TBI measurements for further evaluation. Reviewed, dictated and finalized at location A. N TUNER ELECTRONIC IMPRESSION: 1. No deep venous thrombosis in either lower limb. 2. Segment of significantly decreased vascular flow on color Doppler imaging at the mid right femoral artery suggesting a hemodynamically significant stenosis . Could consider lower extremity arterial Doppler study with segmental pressure s and DAVINA and TBI measurements for further evaluation.
[2019-12-31] MEDS: dilTIAZem HCl INJ 25 MG/5 ML VIAL 10 MG IV PUSH ×2 (15:16→15:32)
--- NOTE | 2019-12-31 15:16 | ED.CHESTPAIN ---
HPI - Chest Pain General Chief Complaint: Chest Pain Stated Complaint: CP/SVT Time Seen by Provider: 12/31/19 15:06 Source: patient Mode of arrival: EMS Limitations: no limitations History of Present Illness HPI narrative: 69 years old white female came by ambulance from home complaining of chest pain and shortness of breath that started around noon today. Patient denies any fever, chills, nausea, vomiting, sore throat, headache, exposure to anybody with COVID-19. History of COPD on 4 L nasal cannula, history of for coronary stents, history of cardiac ablation. Patient received 6 mg of adenosine once without any improvement. Related Data Home Medications Medication Instructions Recorded Confirmed potassium chloride 20 meq PO DAILY PRN 03/21/19 12/11/19 metformin 500 mg PO BID 08/26/19 12/11/19 Brilinta 90 mg PO BID 11/08/19 12/11/19 Daliresp 500 mcg PO DAILY 11/08/19 12/11/19 alendronate 70 mg PO WEEKLY 11/08/19 12/11/19 atorvastatin 10 mg PO DAILY 11/08/19 12/11/19 furosemide 20 mg PO PRN PRN 11/08/19 12/11/19 losartan 50 mg PO DAILY 11/08/19 12/11/19 metoprolol succinate 150 mg PO DAILY 11/08/19 12/11/19 prednisone 5 mg PO DAILY 11/08/19 12/11/19 albuterol sulfate [Ventolin HFA] 2 puff INHALATION Q4-6H PRN 11/11/19 12/11/19 diltiazem HCl 60 mg PO TID 11/11/19 12/11/19 duloxetine 60 mg PO DAILY 11/11/19 12/11/19 fluorometholone 1 drp OPHTHALMIC (EYE) DAILY 11/11/19 12/11/19 Allergies Allergy/AdvReac Type Severity Reaction Status Date / Time morphine Allergy Unknown Not Verified 12/31/19 15:31 Entered,Itching pregabalin Allergy Unknown Itching Verified 12/31/19 15:31 Review of Systems Review of Systems: Narrative: CONSTITUTIONAL: Denies fever, chills, or sweats. EYES: Denies visual changes, redness, or discharge. ENT: Denies rhinorrhea, congestion, sore throat, or otalgia. CARDIOVASCULAR: Complaining of chest pain and shortness of breath RESPIRATORY: Denies cough or dyspnea. GASTROINTESTINAL: Denies abdominal pain, nausea, vomiting, or diarrhea. GENITOURINARY: Denies dysuria or hematuria. SKIN: Denies rash or itching. MUSCULOSKELETAL: Denies back pain, joint pain, or myalgia. NEUROLOGIC: Denies headache, numbness, or weakness. PSYCHIATRIC: Denies anxiety or depression. [facility] Past Medical History Medical History (Updated 12/31/19 @ 18:14 by Ramon Akins MD) A-fib With an ablation and paroxysmal Anxiety CAD (coronary artery disease) s/p 3 stents (mid LAD, mid CX, mid RCA) after Non STEMI May 201706/2019: Stent to the distal RCA, POBA PDA Chronic anemia Chronic respiratory failure with hypoxia Chronically on oxygen at 5 L per nasal cannula. Congestive heart failure Diastolic with most recent echocardiogram January 2019 demonstrating paradoxical septal motion consistent with right ventricular volume overload or elevated right ventricular end-diastolic pressure, EF 60-65%, mildly increased left ventricular wall thickness, grade 1 diastolic dysfunction, severely reduced right ventricular systolic function, severely enlarged right ventricular chamber, severely enlarged right atrial chamber, [id number] mitral valve regurgitation, trace tricuspid regurgitation, mild pulmonary hypertension with RVSP of 46 COPD (chronic obstructive pulmonary disease) 4L oxygen use during day and night Depression DM2 (diabetes mellitus, type 2) GERD (gastroesophageal reflux disease) History of kidney stones HTN (hypertension) Hyperlipidemia Hypomagnesemia Irritable bowel Kidney stone 2004 with surgery Obstructive sleep apnea With last sleep study March 2019 recommending auto bilevel with 5 L of oxygen Peripheral neuropathy PSVT (paroxysmal supraventricular tachycardia) Pulmonary nodules Rheumatoid arthritis Subarachnoid hemorrhage from fall in 12/2017 Surgical History Surgical History H/O bilateral cataract extraction H/O heart artery stent 3 stents at [facility]
[2019-12-31 15:30] LABS: Basophils Absolute Auto 0.1 K/mm3 (0.0-0.1); Basophils Percent Auto 0.5 % (0.2-1.2); Eosinophils Absolute Auto 0.4 K/mm3 (0-0.3); Eosinophils Percent Auto 3.1 % (0-4.4); Hemoglobin 11.3 g/dL (12.0-15.0); Immature Granulocyte Absolute 0.07 K/mm3 (0.00-0.031); Immature Granulocyte Percent A 0.6 % (0-0.5); Lymphocytes Absolute Auto 1.31 K/mm3 (0.9-3.2); Lymphocytes Percent Auto 11.1 % (18.3-44.2); Mean Corpuscular HGB Conc 31.4 g/dl (32-36); Mean Corpuscular Hemoglobin 26.6 pg (26-34); Mean Corpuscular Volume 84.7 fl (80-100); Mean Platelet Volume 9.4 fl (7.4-10.4); Monocytes Absolute Auto 0.9 K/mm3 (0.1-0.6); Monocytes Percent Auto 7.2 % (2.6-8.5); Neutrophils Absolute Auto 9.1 K/mm3 (1.3-6.7); Neutrophils Percent Auto 77.5 % (45.5-73.1); Platelet Count Result 279 k/mm3 (150-375); Red Blood Count 4.25 M/mm3 (4.2-5.4); Red Cell Distribution Width 14.7 % (11.5-14.5); White Blood Count 11.8 K/mm3 (4.5-10.0)
[2019-12-31 15:39] LABS: Prothrombin Time 13.9 Seconds (11.1-14.7)
[2019-12-31 15:40] LABS: Partial Thromboplastin Time 29.1 SECONDS (22.3-36.8)
[2019-12-31 15:42] LABS: Potassium 3.7 mmol/L (3.4-5.0)
[2019-12-31 15:51] LABS: NT Pro B Type Natriuretic Pept 951 PG/ML (5-100)
[2019-12-31 15:52] LABS: Alanine Aminotransferase 9 U/L (4-35); Albumin Level 3.9 g/dL (3.5-5.1); Alkaline Phosphatase 102 U/L (38-126); Anion Gap 12 mmol/L (8-16); Aspartate Amino Transferase 17 U/L (14-36); Bilirubin,Total 0.6 mg/dL (0.2-1.3); Blood Urea Nitrogen 18 mg/dL (7-17); Carbon Dioxide 25 mmol/L (22-30); Chloride 102 mmol/L (98-107); Estimated CRCL calculation 35 ml/min; Estimated Glomerular Filt Rate 49; Glucose 164 mg/dL (65-105); Sodium 139 mmol/L (137-145)
[2019-12-31 15:57] LABS: Troponin I 0.045 ng/mL (0.000-0.034)
[2019-12-31] MEDS: ENOXAPARIN 30 MG/0.3 ML SYRINGE 60 MG SUB-Q (17:05)
--- NOTE | 2019-12-31 18:14 | ECG_ITS ---
Measurements Intervals [place] Rate: 177 P: [place]: 0 QRS: 6 QRSD: 93 T: 75 QT: 222 QTc: 381 Interpretive Statements ATRIAL FIBRILLATION WITH RAPID VENTRICULAR RESPONSE CANNOT RULE OUT SEPTAL INFARCT, AGE INDETERMINATE BORDERLINE ST-T WAVE ABNORMALITY- HIGH LATERAL LEADS BASELINE ARTIFACT- I, II, AVR, AVL, AVF, V1-V2, V5-V6 ABNORMAL ECG Electronically Signed On 12-31-2019 18:35:18 MUSIC TYPOGRAPHER by Joshua Bennett D.O.
--- NOTE | 2019-12-31 18:21 | ECG_ITS ---
Measurements Intervals [place] Rate: 118 P: [place]: 0 QRS: -34 QRSD: 87 T: 79 QT: 325 QTc: 456 Interpretive Statements SINUS WITH INTERMITTENT ATRIAL TACHYCARDIA ATRIAL PREMATURE COMPLEXES LEFT AXIS DEVIATION NONSPECIFIC ST & T-WAVE ABNORMALITY- ANTEROLAT/HIGH LAT LEADS BASELINE ARTIFACT- I, AVL ABNORMAL ECG Electronically Signed On 01-01-2020 7:38:45 STORE HAND by Joshua Bennett D.O.
--- NOTE | 2019-12-31 19:35 | ADMGEN ---
This patient, Piedad Andrade, was admitted to IMU Room 210-01. Patient/family oriented to hospital policies and general routines including ID bracelet, bed and alarms, visiting hours, pain management, procedures, bathroom and other care routines, personal items, smoking policy, room service/diet, and visiting hours. Information on how to activate the Rapid Response Team has been discussed. Patient/Family are encouraged to report perceived risks to care and to ask questions if they do not understand what they are told or what they should do.
[2019-12-31 20:34] LABS: Troponin I 0.126 ng/mL (0.000-0.034)
--- NOTE | 2019-12-31 21:18 | PM.IMHP ---
H&P: HPI History of Present Illness Date/Time: 12/31/19 21:18 Chief complaint: chest pain Narrative: Piedad Andrade is a 69 year old female with a past medical history of atrial fibrillation, CHF, COPD on chronic home O2 and SVT who presented to the ER via EMS from home with chest pain similar to when she has had prior episodes of SVT in AFib R. The patient reports that yesterday before she went to bed she noticed that she was shaking but denied feeling overtly cold. She has always chilled at baseline. She has not had any symptoms of cough, shortness of breath, fever or ill contacts. When she woke up this morning she still felt a little bit shaky. Around noon while at rest she developed substernal chest pain. The chest pain was accompanied by palpitations and racing heartbeat. Patient checked her heart rate on a pulse oximeter and her heart rate was as high as 230. On EMS arrival to the patient's home her heart rate was 220. She was given 6 of adenosine and was brought to the ER. On arrival to ER patient's heart rate was 187. She received 12 of adenosine on arrival to the ER in her heart rate slowed down demonstrating atrial fibrillation. Patient subsequently received and was initiated on a Cardizem drip. On arrival to the IMU patient's heart rate was in the 120s on Cardizem of 10 mg. The patient reports that her chest pain has since resolved since her heart rate has decreased. She has not noticed any lower extremity edema orthopnea or paroxysmal nocturnal dyspnea. Review of Systems Review of Systems: Narrative: 12 systems were reviewed with pertinent positives and negatives per HPI. Except as documented in the HPI, all other systems were reviewed and are negative. [facility] Past Medical History Medical History (Updated 01/01/20 @ 00:08 by Beatriz De Paz DO) A-fib With an ablation and paroxysmal Anxiety CAD (coronary artery disease) s/p 3 stents (mid LAD, mid CX, mid RCA) after Non STEMI May 201706/2019: Stent to the distal RCA, POBA PDA Chronic anemia Chronic respiratory failure with hypoxia Chronically on oxygen at 5 L per nasal cannula. Closed intertrochanteric fracture of right hip Treated non operatively October 2019 Congestive heart failure Diastolic with most recent echocardiogram January 2019 demonstrating paradoxical septal motion consistent with right ventricular volume overload or elevated right ventricular end-diastolic pressure, EF 60-65%, mildly increased left ventricular wall thickness, grade 1 diastolic dysfunction, severely reduced right ventricular systolic function, severely enlarged right ventricular chamber, severely enlarged right atrial chamber, [id number] mitral valve regurgitation, trace tricuspid regurgitation, mild pulmonary hypertension with RVSP of 46 COPD (chronic obstructive pulmonary disease) Depression DM2 (diabetes mellitus, type 2) GERD (gastroesophageal reflux disease) History of kidney stones HTN (hypertension) Hyperlipidemia Hypomagnesemia Irritable bowel Kidney stone 2003 with surgery Obstructive sleep apnea With last sleep study March 2019 recommending auto bilevel with 5 L of oxygen Peripheral neuropathy PSVT (paroxysmal supraventricular tachycardia) Pulmonary nodules Rheumatoid arthritis Subarachnoid hemorrhage from fall in 12/2017 Surgical History Surgical History H/O bilateral cataract extraction H/O heart artery stent 3 stents at [facility] Dr. hummel February 2018 H/O lithotripsy H/O: hysterectomy History of cholecystectomy History of hysterectomy S/P ablation of atrial fibrillation Status post bilateral foot surgery Family History Family History Sibling Diabetes mellitus Father Diabetes mellitus Asthma Pulmonary embolism Diet of pulmonary embolus age 58 Mother Murder Was killed in
[2019-12-31 22:04] LABS: Glucose Point of Care 169 (65-105)
[2019-12-31 23:38] LABS: Troponin I 0.128 ng/mL (0.000-0.034)
[2020-01-01] VITALS (12 sets, daily range): BP systolic 125–155; BP diastolic 66–85; PULSE 81–125; RESP 18–22; TEMP 36.5–36.8; O2SAT 97–100; BMI 22.3
[2020-01-01 08:46] LABS: Glucose Point of Care 106 (65-105)
--- NOTE | 2020-01-01 09:00 | PC.NURSE ---
Heart rate noted to be sinus tachycardic, 144. Dr. Farr notified. No new orders at this time.
[2020-01-01] MEDS: MEGESTROL ACETATE (*CHEMO) 40 MG TABLET PO ×2 (10:17→13:04)
[2020-01-01] MEDS: METOPROLOL SUCCINATE EXT REL 50 MG TABCR 150 MG PO (10:18)
[2020-01-01] MEDS: TICAGRELOR 90 MG TABLET PO (10:18)
[2020-01-01] MEDS: FLUoxetine HCL 20 MG CAPSULE 40 MG PO (10:18)
[2020-01-01] MEDS: metFORMIN HCL 500 MG TABLET PO (10:19)
[2020-01-01] MEDS: MAGNESIUM OXIDE 400 MG TABLET PO (10:19)
[2020-01-01] MEDS: THERAPEUTIC MULTIVITAMINS/MINERALS TAB (*BKC) 1 TABLET PO (10:20)
[2020-01-01] MEDS: LOSARTAN POTASSIUM 50 MG TABLET PO (10:20)
[2020-01-01] MEDS: ATORVASTATIN 10 MG TABLET PO (10:21)
[2020-01-01] MEDS: ROFLUMILAST 500 MCG TABLET PO (10:21)
[2020-01-01] MEDS: predniSONE 5 MG TABLET PO (10:21)
[2020-01-01] MEDS: DULoxetine HCL 30 MG CAPSULE.DR 60 MG PO (10:21)
[2020-01-01] MEDS: ASPIRIN 81 MG CHEWABLE TABLET PO (10:22)
--- NOTE | 2020-01-01 11:07 | PM.CNCAR ---
Assessment and Plan Assessment and plan (1) Atrial fibrillation with rapid ventricular response: Code(s): I48.91 - Unspecified atrial fibrillation Status: Acute Assessment and Plan: Decrease her diltiazem drip down to 10 mg and wean to off. Resume her metoprolol succinate 150 mg p.o. daily as well as her oral diltiazem 60 mg p.o. t.i.d.. Likely her diltiazem will be able to be weaned off in a few hours. I will check a bilateral lower extremity venous Doppler to rule out for any DVT as well as a D-dimer. She has been sedentary since her broken hip. There is an obvious concern of pulmonary embolism. She is not on anticoagulation at this point secondary to fall risk. (2) Elevated troponin: Code(s): R77.8 - Other specified abnormalities of plasma proteins Status: Acute Assessment and Plan: Likely type 2 in related to her AFib with RVR. Will check another troponin to ensure that she has peaked (3) SVT (supraventricular tachycardia): Code(s): I47.1 - Supraventricular tachycardia Status: Acute Assessment and Plan: status post ablation (4) COPD (chronic obstructive pulmonary disease): Qualifiers: COPD type: unspecified COPD Qualified Code(s): J44.9 - Chronic obstructive pulmonary disease, unspecified Code(s): J44.9 - Chronic obstructive pulmonary disease, unspecified Status: Chronic Assessment and Plan: oxygen dependent (5) CAD (coronary artery disease): Qualifiers: Coronary Disease-Associated Artery/Lesion type: [place] artery [place] vs. transplanted heart: [place] heart Associated angina: without angina Qualified Code(s): I25.10 - Atherosclerotic heart disease of [place] coronary artery without angina pectoris Code(s): I25.10 - Atherosclerotic heart disease of [place] coronary artery without angina pectoris Status: Acute Assessment and Plan: continue dual anti-platelet therapy, metoprolol, losartan. Will increase her atorvastatin to 20 mg daily History of Present Illness History of Present Illness Consult date/time: 01/01/20 11:07 Requesting physician: Beatriz De Paz DO Consult reason: atrial fibrillation Reason For Visit: chest pain Narrative: date of service 01/01/2020 Reason for consultation: Atrial fibrillation, chest pain History patient is a 69-year-old female patient of [employer] who has history of atrial fibrillation, CHF, COPD on chronic oxygen, SVT and coronary disease with most recent stent placed earlier this year. She states that she started developed sudden onset of chest pain around noon today. She had not been feeling very well for the past couple of days. She went to bed last night was chilled . No fevers though. No significant or unusual shortness of breath. She checked her heart rate and her pulse oximeter showed a heart rate in the 230s. EMS was called. Initially was thought that she was in SVT and she was given adenosine 6 mg and then adenosine 12 mg. Later it was then felt like she was in atrial fibrillation with rapid ventricular response. She was started on diltiazem drip. Gradually over time heart rate decreased and her chest pain then also resolved. Her troponins did turn slightly positive. She is currently pain-free and her heart rate is in the low 100s and in a sinus rhythm. She denies any syncope, unusual shortness of breath, edema, palpitations. She did have some presyncope yesterday. Review of Systems Review of Systems: All systems reviewed & are unremarkable except as noted in HPI and below Constitutional: Constitutional: Reports chills Eyes: Eyes: Denies blurry vision ENT: Reports Normal hearing present Cardiovascular: Cardiovascular: Reports chest pain Respiratory: Respiratory: Reports dyspnea Gastrointestinal: Gastrointestinal: Denies abdominal pain Genitourinary: Genitourinary: Denies hematuria and Denies flank pain Musculoskeletal:
[2020-01-01 12:00] LABS: D Dimer 0.48 ug/mL (<0.48)
[2020-01-01 12:11] LABS: Glucose Point of Care 158 (65-105)
[2020-01-01 12:14] LABS: Troponin I 0.067 ng/mL (0.000-0.034)
[2020-01-01] MEDS: dilTIAZem HCL 60 MG TABLET PO (13:04)
--- NOTE | 2020-01-01 16:08 | PM.DS ---
DS: Admitting Diagnosis Admitting Diagnosis Admitting Diagnosis: Chest pain DS: Discharge Diagnosis Discharge Diagnosis (1) Atrial fibrillation with rapid ventricular response: Code(s): I48.91 - Unspecified atrial fibrillation Status: Resolved Assessment and Plan: She is on a Cardizem drip. This is weaned down and pt is discharged on cardizem and metoprolol orally. Continue ASA and brilinta not on anticoagulation due to falls. Sp fall and hip fracture. DDimers completed, venous doppler completed which was negative for clots. (2) Elevated troponin: Code(s): R77.8 - Other specified abnormalities of plasma proteins Status: Acute Assessment and Plan: Seen by cardiology ok to discharge, unlikley to be a cardiac event (3) JOAQUIN (obstructive sleep apnea): Code(s): G47.33 - Obstructive sleep apnea (adult) (pediatric) Status: Chronic (4) COPD (chronic obstructive pulmonary disease): Qualifiers: COPD type: unspecified COPD Qualified Code(s): J44.9 - Chronic obstructive pulmonary disease, unspecified Code(s): J44.9 - Chronic obstructive pulmonary disease, unspecified Status: Chronic DS: Summary Time Spent with Patient Time attestation: Total time spent providing and/or coordinating discharge services:40 minutes on day of discharge Exam Const: General: well developed Nutritional Appearance: well nourished HENMT: Head: normocephalic Eyes: General: appearance normal, both eyes and all related structures Pupils: Equal, round and reactive pupils present Neck: Neck: supple Chest: Chest palpation & inspection: normal inspection of the chest Resp: Effort & Inspection: normal respiratory effort Auscultation: clear to auscultation bilaterally Cardio: Jugular venous distension: no JVD Heart sounds: S1 normal heart sound present and S2 normal heart sound present GI: Inspection: normal to inspection GI Palp: No abdominal tenderness, Yes Soft to palpation and No Tenderness to palpation present (GI) Auscultation: normal bowel sounds : General: Yes no CVA tenderness Back/Spine/Pelvis: Back: no CVA tenderness Skin: General skin exam: normal color and dry skin Neuro: Cranial nerves: Yes CN's II-XII intact bilaterally and Yes Equal, round and reactive pupils present Cognition (Neuro): normal cognition Speech: normal speech Motor exam (neuro): 5/5 motor strength present throughout Extrem: General: normal to inspection Psych: Appearance: grossly normal Mental Status: mental status grossly normal DS: Data Data Completed and Pending Labs on day of discharge: Labs from last 24 hours 01/01/20 01/01/20 01/01/20 11:49 11:34 11:34 D-Dimer 0.48 POC Capillary Glucose 158 H Troponin I 0.067 H* 01/01/20 12/31/19 12/31/19 08:20 22:40 21:18 D-Dimer POC Capillary Glucose 106 169 H Troponin I 0.128 H* 12/31/19 20:01 D-Dimer POC Capillary Glucose Troponin I 0.126 H* D Discharge Plan Discharge Attending physician on discharge: Stefanie Meade Consulting providers: Diaz Farr Discharging Clinician: Stefanie Meade Anticipated Discharge Date/Time: 01/01/20 16:05 Patient Disposition: Home, Self-Care Activity: as tolerated Diet: heart healthy Discharge Instructions: CARDIOLOGY DISCHARGE INSTRUCTIONS: ACTIVITY: Activity as tolerated with precautions to avoid falls. Rise slowly from a seated or lying position. Elevate legs when sitting. FOLLOW-UP: [facility] at [facility] [address] with Jenny Lackey NP on January 31, 2020 at 2:30 p.m.. Please arrive by 2:15 p.m. for your appointment. Bring photo ID, insurance card(s) and current medication list. Keep previously scheduled appointment with Dr. Alvares on February 14, 2020 at 2:30 p.m..
== END 2020-01-01 16:30 | disposition home or self-care (01) | DRG 309 ==
LOC: ANHED 18:14 → ANHIMU 18:20
PROVIDERS: Internal Medicine Cardiovascular Disease; Admitting Provider Internal Medicine; Emergency Provider Emergency Medicine; PCP Family Medicine Sports Medicine; Visit Provider Family Medicine
DX: I48.20 Chronic atrial fibrillation, unspecified (principal); J96.11 Chronic respiratory failure with hypoxia; I50.32 Chronic diastolic (congestive) heart failure; I11.0 Hypertensive heart disease with heart failure; I47.1 Supraventricular tachycardia; G47.33 Obstructive sleep apnea (adult) (pediatric); F41.8 Other specified anxiety disorders; J44.9 Chronic obstructive pulmonary disease, unspecified; I25.10 Atherosclerotic heart disease of native coronary artery without angina pectoris; D64.9 Anemia, unspecified; K21.9 Gastro-esophageal reflux disease without esophagitis; E78.5 Hyperlipidemia, unspecified; K58.9 Irritable bowel syndrome, unspecified; M06.9 Rheumatoid arthritis, unspecified; E11.42 Type 2 diabetes mellitus with diabetic polyneuropathy; R79.89 Other specified abnormal findings of blood chemistry; R91.8 Other nonspecific abnormal finding of lung field; Z66 Do not resuscitate; Z95.5 Presence of coronary angioplasty implant and graft; Z99.81 Dependence on supplemental oxygen; Z98.42 Cataract extraction status, left eye; Z98.41 Cataract extraction status, right eye; Z90.710 Acquired absence of both cervix and uterus; Z90.49 Acquired absence of other specified parts of digestive tract; Z87.891 Personal history of nicotine dependence
CPT/HCPCS: 36415; 71045; 80053; 83880; 84484; 85025; 85380; 85610; 85730; 93005; 93970; 96365; 96366; 96372; 99285; A9270; G0378; J0153; J1650; J7512

== ENCOUNTER 2020-05-04 18:06 | Observation (INO) | payer MEDICARE, SELFPAY ==
[2020-05-04] VITALS (15 sets, daily range): BP systolic 83–157; BP diastolic 58–101; PULSE 81–196; RESP 15–23; TEMP 36.3–36.9; O2SAT 90–100; BMI 23.3
--- NOTE | ~2020-05-04 | XR_ITS ---
EXAMINATION: XR chest 1V portable INDICATION: Tachycardia TECHNIQUE: Portable AP chest at 1904 hours COMPARISON: 12/31/2019 FINDINGS: The lungs are hyperinflated but free of acute opacities. There is no pleural effusion or pn eumothorax. The cardiomediastinal silhouette is normal. IMPRESSION: 1. No acute cardiopulmonary abnormality. Reviewed, dictated and finalized at location A. [facility] COACH
[2020-05-04] MEDS: ADENOSINE IV SOLN 6 MG/2 ML VIAL IV PUSH (18:18)
[2020-05-04] MEDS: HYDROmorphone HCL INJ (*CRX) 1 MG/ML SYR (18:21)
[2020-05-04] MEDS: ADENOSINE IV SOLN 6 MG/2 ML VIAL 12 MG IV PUSH (18:28)
--- NOTE | 2020-05-04 18:37 | ECG_ITS ---
Measurements Intervals Reading Rate: 189 P: NH: 0 QRS: -2 QRSD: 95 T: 90 QT: 237 QTc: 421 Interpretive Statements SUPRAVENTRICULAR TACHYCARDIA ST ABNORMALITY IN ANTEROLAT/HIGH LAT LEADS- CONSIDER ISCHEMIA OR RATE RELATED BASELINE WANDER- I, III, V4-V6 ABNORMAL ECG Electronically Signed On 05-05-2020 6:50:11 CPHT by Joshua Bennett D.O.
--- NOTE | 2020-05-04 18:38 | ED.ARRPALP ---
HPI - Arrhythmia/Palpitations General Chief Complaint: Arrhythmia/Palpitations Stated Complaint: cp/hr 180 Time Seen by Provider: 05/04/20 18:31 Source: patient, family and EMS Mode of arrival: EMS Limitations: no limitations History of Present Illness HPI narrative: Patient is a 70-year-old female complaining of palpitations that started prior to arrival. Per EMS, patient is well-known to them, states that last time she has SVT adenosine did not work and may have a shock her. Patient was given Versed 2 mg IV, EMS administered synchronized cardioversion prior to arrival, patient continued to be in SVT. Upon arrival to the emergency room patient is in SVT. Patient denies any chest pain, shortness of breath, abdominal pain, nausea, vomiting, diarrhea, fever or chills. Related Data Home Medications Medication Instructions Recorded Confirmed potassium chloride 20 meq PO DAILY PRN 03/21/19 03/12/20 metformin 500 mg PO BID 08/26/19 03/12/20 Brilinta 90 mg PO BID 11/08/19 03/12/20 Daliresp 500 mcg PO DAILY 11/08/19 03/12/20 losartan 50 mg PO DAILY 11/08/19 03/12/20 metoprolol succinate 150 mg PO DAILY 11/08/19 03/12/20 albuterol sulfate [Ventolin HFA] 2 puff INHALATION Q4-6H PRN 11/11/19 03/12/20 fluorometholone 1 drp OPHTHALMIC (EYE) DAILY 11/11/19 03/12/20 acetaminophen 325 mg tablet 650 mg PO Q6H PRN tablet 04/07/20 duloxetine 30 mg capsule,delayed 30 mg PO DAILY 04/07/20 release furosemide 40 mg tablet 40 mg PO QAM 04/07/20 Allergies Allergy/AdvReac Type Severity Reaction Status Date / Time morphine Allergy Unknown Not Verified 05/04/20 18:36 Entered,Itching pregabalin Allergy Unknown Itching Verified 05/04/20 18:36 Review of Systems Review of Systems: All systems reviewed & are unremarkable except as noted in HPI and below Constitutional: Constitutional: Denies body ache(s), Denies chills, Denies excessive sweating, Denies fatigue, Denies fever(s), Denies headache(s), Denies lethargy, Denies malaise, Denies weakness and Denies weight loss Eyes: Eyes: Denies blurry vision, Denies change in vision and Denies loss of vision ENT: Denies dizziness, Denies ear discharge, Denies headache(s), Denies lip swelling, Denies epistaxis, Denies nasal congestion, Denies neck pain, Denies throat swelling and Denies tongue swelling Cardiovascular: Cardiovascular: Denies chest pain, Denies chest pain at rest, Denies chest pain with activity, Denies diaphoresis, Denies rapid heart rate, Denies edema, Denies irregular heart rhythm, Denies lightheadedness, Denies dyspnea and Denies dyspnea on exertion Respiratory: Respiratory: Denies chest congestion, Denies cough, Denies hemoptysis, Denies dyspnea and Denies dyspnea on exertion Gastrointestinal: Gastrointestinal: Denies abdominal pain, Denies melena, Denies hematochezia, Denies diarrhea, Denies nausea, Denies vomiting and Denies hematemesis Musculoskeletal: Musculoskeletal: Denies abnormal gait, Denies deformity, Denies joint swelling, Denies limited range of motion, Denies neck pain and Denies numbness Neurologic: Denies Abnormal speech present, Denies abnormal gait, Denies confusion, Denies dizziness, Denies headache(s), Denies focal weakness, Denies loss of vision, Denies numbness, Denies Other visual disturbances, Denies Sensory deficit (Neuro) and Denies weakness Psychiatric: Psychiatric: Denies confusion, Denies depression, Denies auditory hallucinations, Denies homicidal ideation and Denies suicidal ideation Endocrine: Endocrine: Denies cold intolerance, Denies excessive sweating, Denies fatigue, Denies heat intolerance and Denies palpitations Hematologic/Lymphatic: Hematologic/Lymphatic: Denies easy bleeding and Denies easy bruising Allergic/Immunologic: Allergic/Immunologic: Denies lip swelling, Denies throat swelling and Denies tongue swelling PMFSH Past Medical History Medical History A-fib With an ablation and parox
[2020-05-04] MEDS: dilTIAZem HCl INJ 25 MG/5 ML VIAL (18:55)
[2020-05-04 18:56] LABS: Hematocrit 36.4 % (37.0-47.0); Hemoglobin 10.9 g/dL (12.0-15.0); Mean Corpuscular HGB Conc 29.9 g/dl (32-36); Mean Corpuscular Hemoglobin 25.6 pg (26-34); Mean Corpuscular Volume 85.4 fl (80-100); Mean Platelet Volume 10.2 fl (7.4-10.4); Platelet Count Result 256 k/mm3 (150-375); Red Blood Count 4.26 M/mm3 (4.2-5.4); Red Cell Distribution Width 15.6 % (11.5-14.5); White Blood Count 11.7 K/mm3 (4.5-10.0)
[2020-05-04] MEDS: LORazepam INJ (*CRX) 2 MG/ML VIAL 1 MG IV PUSH (19:00)
--- NOTE | 2020-05-04 19:08 | ECG_ITS ---
Measurements Intervals [place] Rate: 109 P: 61 MT: 164 QRS: -28 QRSD: 90 T: 77 QT: 328 QTc: 442 Interpretive Statements SINUS TACHYCARDIA ATRIAL COUPLET, SUPRAVENTRICULAR BIGEMINY AND VENTRICULAR PREMATURE COMPLEX BORDERLINE ST-T WAVE ABNORMALITY- LAT/HIGH LAT LEADS BASELINE ARTIFACT- I, II, V1-V2 ABNORMAL ECG Electronically Signed On 05-05-2020 6:51:35 [employer] by Joshua Bennett D.O.
[2020-05-04 19:10] LABS: Lactic Acid Reflex 1.5 mmol/L (0.7-2.1)
[2020-05-04 19:11] LABS: Alanine Aminotransferase 13 U/L (4-35); Albumin Level 3.8 g/dL (3.5-5.1); Alkaline Phosphatase 97 U/L (38-126); Anion Gap 6 mmol/L (8-16); Aspartate Amino Transferase 22 U/L (14-36); Bilirubin,Total 0.2 mg/dL (0.2-1.3); Blood Urea Nitrogen 24 mg/dL (7-17); Calcium 9.4 mg/dL (8.4-10.2); Carbon Dioxide 30 mmol/L (22-30); Chloride 104 mmol/L (98-107); Estimated CRCL calculation 42 ml/min; Estimated Glomerular Filt Rate > 60; Glucose 187 mg/dL (65-105); Sodium 140 mmol/L (137-145)
--- NOTE | 2020-05-04 19:11 | PC.NURSE ---
1814-pt attempted to try to bear down to lower heart rate. Pt was unsuccessful. Pt then cardioverted at 100J per verbal order from Dr. Baez.
[2020-05-04 19:15] LABS: Band Neutrophils Percent 1 % (0-6); Eosinophils Absolute Manual 0.58 K/mm3 (0.02-0.5); Eosinophils Percent Manual 5 % (0-4); Lymphocytes Absolute Manual 4.32 K/mm3 (1.1-4.5); Monocytes Absolute Manual 0.46 K/mm3 (0.1-0.90); Monocytes Percent Manual 4 % (3-9); Neutrophils Absolute Manual 6.31 K/mm3 (1.7-7.2); Neutrophils Percent Manual 53 % (46-73); Total Cells Counted 100
[2020-05-04 19:16] LABS: Anisocytosis 2+ (NORMAL); Hypochromasia 1+ (NORMAL); Platelet Estimate Adequate (Adequate)
[2020-05-04 19:17] LABS: INR 0.9; Prothrombin Time 12.9 Seconds (11.1-14.7)
[2020-05-04 19:18] LABS: Partial Thromboplastin Time 25.6 SECONDS (22.3-36.8)
[2020-05-04 19:20] LABS: D Dimer 0.44 ug/mL (<0.48)
[2020-05-04 19:23] LABS: Troponin I 0.013 ng/mL (0.000-0.034)
[2020-05-04 22:36] LABS: Troponin I 0.049 ng/mL (0.000-0.034)
--- NOTE | 2020-05-04 23:06 | ADMGEN ---
This patient, Piedad Andrade, was admitted to IMU Room 206-02 at 2300. Patient/family oriented to hospital policies and general routines including ID bracelet, bed and alarms, visiting hours, pain management, procedures, bathroom and other care routines, personal items, smoking policy, room service/diet, and visiting hours. Information on how to activate the Rapid Response Team has been discussed. Patient/Family are encouraged to report perceived risks to care and to ask questions if they do not understand what they are told or what they should do.
[2020-05-05] VITALS (15 sets, daily range): BP systolic 118–156; BP diastolic 54–92; PULSE 78–114; RESP 16–20; TEMP 35.6–36.4; O2SAT 92–100
[2020-05-05 00:09] LABS: Glucose Point of Care 160 (65-105)
[2020-05-05 01:38] LABS: Troponin I 0.092 ng/mL (0.000-0.034)
--- NOTE | 2020-05-05 04:05 | PM.IMHP ---
H&P: HPI History of Present Illness Date/Time: 05/05/20 05:20 Chief Complaint: Chest pain and shortness of breath Narrative: Piedad Andrade is a 70 year old female, CHF, COPD on chronic home O2 and multiple episodes of SVT who presented to the ER via EMS due to chest pain and shortness of breath. The patient reports that she received a call from the [employer] and she subsequently took off her CPAP in order to talk to them. She did not put her oxygen (4 L) on to talk than them. No sooner than her conversation ended she began having shortness of breath and chest pain similar to her prior episodes of SVT. In the field EMS found the patient to be in SVT and she received 2 mg of Versed and was synchronized cardioversion with repeat heart rate of 180. When the patient arrived to the ER she was still in SVT she again received 6 mg of adenosine with no response followed by 12 mg. She still had heart rates in the 180s and underwent synchronized cardioversion. After 2nd episode a cardioversion she converted into sinus tachycardia and eventually settled into normal sinus rhythm. The patient reports that the 2nd episode a cardioversion was quite traumatic and she felt like her head was going to pop off. But she denies any further chest pain. Her shortness of breath is back down to her baseline. She is back on her home oxygen. She has not been having any cough or congestion. She denies any fevers or chills. She is concerned because her sister was recently diagnosed with WPW and she is concerned that that may be part of her cardiac rhythm issues. Review of Systems Review of Systems: Narrative: 12 systems were reviewed with pertinent positives and negatives per HPI. Except as documented in the HPI, all other systems were reviewed and are negative. [facility] Past Medical History Medical History A-fib With an ablation and paroxysmal Anxiety Arthritis CAD (coronary artery disease) s/p 3 stents (mid LAD, mid CX, mid RCA) after Non STEMI May 201706/2019: Stent to the distal RCA, POBA PDA Chronic anemia Chronic respiratory failure with hypoxia Chronically on oxygen at 5 L per nasal cannula. Closed intertrochanteric fracture of right hip Treated non operatively October 2019 Congestive heart failure Diastolic with most recent echocardiogram January 2019 demonstrating paradoxical septal motion consistent with right ventricular volume overload or elevated right ventricular end-diastolic pressure, EF 60-65%, mildly increased left ventricular wall thickness, grade 1 diastolic dysfunction, severely reduced right ventricular systolic function, severely enlarged right ventricular chamber, severely enlarged right atrial chamber, [id number] mitral valve regurgitation, trace tricuspid regurgitation, mild pulmonary hypertension with RVSP of 46 COPD (chronic obstructive pulmonary disease) Depression DM2 (diabetes mellitus, type 2) GERD (gastroesophageal reflux disease) Heart attack Heart disease History of kidney stones HTN (hypertension) Hyperlipidemia Hypomagnesemia Irritable bowel Kidney stone 2003 with surgery Obstructive sleep apnea With last sleep study March 2019 recommending auto bilevel with 5 L of oxygen Peripheral neuropathy PSVT (paroxysmal supraventricular tachycardia) Pulmonary nodules Rheumatoid arthritis Subarachnoid hemorrhage from fall in 12/2017 Surgical History Surgical History H/O bilateral cataract extraction H/O heart artery stent 3 stents at [facility] Dr. hummel February 2018 H/O lithotripsy H/O: hysterectomy History of cholecystectomy History of hysterectomy S/P ablation of atrial fibrillation Status post bilateral foot surgery Family History Family History (Updated 05/05/20 @ 06:55 by Beatriz De Paz DO) Sibling Diabetes mellitus [id number]-[id number] syndrome Father De
--- NOTE | 2020-05-05 04:24 | PC.NURSE ---
patient states that she wants us to attempt recesitation once. then no more.
[2020-05-05 05:07] LABS: Troponin I 0.093 ng/mL (0.000-0.034)
[2020-05-05 08:11] LABS: Glucose Point of Care 105 (65-105)
[2020-05-05] MEDS: FLUTICASONE/UMECLIDIN/VILANTER 100-62.5-25 MCG ELLIPTA 1 PUFF INHALATION (08:44)
--- NOTE | 2020-05-05 09:00 | PM.CNCAR ---
Assessment and Plan Assessment and plan (1) Elevated troponin: Code(s): R77.8 - Other specified abnormalities of plasma proteins Status: Acute Assessment and Plan: Likely type 2 infarction from her extreme tachycardia. Continue aspirin, Brilinta, statin, metoprolol (2) Sustained SVT: Code(s): I47.1 - Supraventricular tachycardia Status: Acute Assessment and Plan: Converted with diltiazem and electricity. It should be noted though that adenosine may have worked. Adenosine did not work back in December because patient was in atrial fibrillation and not SVT. Will refer back to electrophysiology as an outpatient Continue metoprolol and on diltiazem at current doses. Check a magnesium level (3) CAD (coronary artery disease): Qualifiers: Coronary Disease-Associated Artery/Lesion type: [place] artery [place] vs. transplanted heart: [place] heart Associated angina: without angina Qualified Code(s): I25.10 - Atherosclerotic heart disease of [place] coronary artery without angina pectoris Code(s): I25.10 - Atherosclerotic heart disease of [place] coronary artery without angina pectoris Status: Acute Assessment and Plan: Most recent PCI in June of 2019. I do think that her troponin bumped though was secondary to her extreme tachycardia. She now feels fine. Will DC further troponins (4) COPD (chronic obstructive pulmonary disease): Code(s): J44.9 - Chronic obstructive pulmonary disease, unspecified Status: Chronic Assessment and Plan: Oxygen dependent (5) Afib: Qualifiers: Atrial fibrillation type: unspecified Qualified Code(s): I48.91 - Unspecified atrial fibrillation Code(s): I48.91 - Unspecified atrial fibrillation Status: Chronic Assessment and Plan: Not on anticoagulation because of fall history. Would encourage her to receive her morning medications. For heart rate comes down is reasonably controlled this morning, she may be discharged for outpatient follow-up History of Present Illness History of Present Illness Consult date/time: 05/05/20 09:00 Requesting physician: Ez Baez MD Consult reason: Other (SVT) Reason For Visit: SVT Narrative: Date of service 05/05/2020 History patient is a 70-year-old patient mine who has a history of SVT, atrial fibrillation, CAD, oxygen dependent COPD, anemia, right-sided heart failure [place], pulmonary hypertension who presented to the hospital because of chest pain and tachycardia. Patient was in her usual state health whenever she took her oxygen off and her CPAP to answer the phone. She did not have oxygen off for couple of minutes. Shortly thereafter start developed tachycardia. Heart rate at home went up as high as 217 beats per minute. She did have chest pain also which is located in the anterior aspect of her chest. It did not radiate into her shoulder but did up into her neck. She has no shortness of breath be sets her baseline dyspnea. No syncope but she did have some dizziness whenever she was standing up. No paroxysmal nocturnal dyspnea, orthopnea. She did have some mild lower extremity swelling. She came to the ER where she was found to be severely tachycardic and in SVT. She underwent a electrical cardioversion and also started on diltiazem which did convert her out of her SVT. She currently is feeling fine. Her troponins did slightly increase but she at this point is feeling good and has no symptoms. She has not had any episodes of SVT and several months. She has been more mobile lately Review of Systems Review of Systems: All systems reviewed & are unremarkable except as noted in HPI and below Constitutional: Constitutional: Denies weakness Eyes: Eyes: Denies blurry vision ENT: Reports Normal hearing present Cardiovascular: Cardiovascular: Reports chest pain, Reports leg edema, Reports lightheadedness and Reports palpitations Re
[2020-05-05] MEDS: TICAGRELOR 90 MG TABLET PO (09:37)
[2020-05-05] MEDS: metFORMIN HCL 500 MG TABLET PO (09:38)
[2020-05-05] MEDS: METOPROLOL SUCCINATE EXT REL 50 MG TABCR 150 MG PO (09:38)
[2020-05-05] MEDS: SERTRALINE HCL 50 MG TABLET PO (09:38)
[2020-05-05] MEDS: FUROSEMIDE 40 MG TABLET PO (09:38)
[2020-05-05] MEDS: DULoxetine HCL 30 MG CAPSULE.DR PO (09:38)
[2020-05-05] MEDS: THERAPEUTIC MULTIVITAMINS/MINERALS TAB (*BKC) 1 TABLET PO (09:38)
[2020-05-05] MEDS: ROFLUMILAST 500 MCG TABLET PO (09:38)
[2020-05-05] MEDS: predniSONE 5 MG TABLET PO (09:38)
[2020-05-05] MEDS: ASPIRIN 81 MG CHEWABLE TABLET PO (09:38)
[2020-05-05] MEDS: ATORVASTATIN 20 MG TABLET PO (09:38)
[2020-05-05] MEDS: dilTIAZem HCL 60 MG TABLET PO ×2 (09:38→15:21)
[2020-05-05] MEDS: LOSARTAN POTASSIUM 50 MG TABLET PO (09:39)
[2020-05-05] MEDS: MEGESTROL ACETATE (*CHEMO) 40 MG TABLET PO ×2 (09:39→15:20)
[2020-05-05 09:41] LABS: Magnesium 1.3 mg/dL (1.6-2.3)
[2020-05-05] MEDS: MAGNESIUM OXIDE 400 MG TABLET PO (09:48)
[2020-05-05 12:45] LABS: Glucose Point of Care 183 (65-105)
[2020-05-05 13:36] LABS: Magnesium 1.2 mg/dL (1.6-2.3)
[2020-05-05] MEDS: MAGNESIUM SULFATE 3GM/D5W100ML 3 GM/100 ML BAG IVPB (15:17)
[2020-05-05 16:57] LABS: Magnesium 2.5 mg/dL (1.6-2.3)
[2020-05-05 17:16] LABS: Glucose Point of Care 206 (65-105)
--- NOTE | 2020-05-05 17:16 | PM.DS ---
DS: Admitting Diagnosis Admitting Diagnosis Admitting Diagnosis: Chief Complaint: Chest pain and shortness of breath DS: Summary Hospital Course Reason for hospitalization: Chief Complaint: Chest pain and shortness of breath Narrative: Piedad Andrade is a 70 year old female, CHF, COPD on chronic home O2 and multiple episodes of SVT who presented to the ER via EMS due to chest pain and shortness of breath. The patient reports that she received a call from the [place] and she subsequently took off her CPAP in order to talk to them. She did not put her oxygen (4 L) on to talk than them. No sooner than her conversation ended she began having shortness of breath and chest pain similar to her prior episodes of SVT. In the field EMS found the patient to be in SVT and she received 2 mg of Versed and was synchronized cardioversion with repeat heart rate of 180. When the patient arrived to the ER she was still in SVT she again received 6 mg of adenosine with no response followed by 12 mg. She still had heart rates in the 180s and underwent synchronized cardioversion. After 2nd episode a cardioversion she converted into sinus tachycardia and eventually settled into normal sinus rhythm. The patient reports that the 2nd episode a cardioversion was quite traumatic and she felt like her head was going to pop off. But she denies any further chest pain. Her shortness of breath is back down to her baseline. She is back on her home oxygen. She has not been having any cough or congestion. She denies any fevers or chills. She is concerned because her sister was recently diagnosed with WPW and she is concerned that that may be part of her cardiac rhythm issues. Hospital Course: Patient is 70-year-old female with history of CHF COPD and hx of SVT presented with an episode of SVT patient was given adenosine which did help control the rate patient was seen by cardiac recommended to follow-up with criminal intelligence analyst, patient with elevated tropes most likely secondary to SVT unlikely acute coronary syndrome seen by speech/language therapist and no further workup is recommended, patient is clinically stable will discharge the patient home today Status at Discharge Functional status at discharge: independent ambulation Overall status at discharge: patient is back to baseline Time Spent with Patient Time attestation: Total time spent providing and/or coordinating discharge services: Patient was seen and examined at the time of the discharge Condition at discharge is stable Code status: Full code. Time spent preparing discharge summary, discharge medications, discussing discharge planning with caseworker and patient is 35 minutes. Time spent: Greater than 30 minutes Exam Narrative: Exam Narrative: Patient is comfortable, NAD HEENT: eyes are clear and none icteric LUNGS:CTA HEART: RR S1S2 ABD: BS+, Soft and nontender Lower extremities: no edema SKIN: nonjaundiced Neuro: grossly intact. DS: Data Data Completed and Pending Labs on day of discharge: Labs from last 24 hours 05/05/20 05/05/20 05/05/20 16:38 16:29 13:14 WBC RBC Hgb Hct MCV MCH MCHC RDW Plt Count MPV Immature Gran % (Auto) Neut % (Auto) Lymph % (Auto) Thomas % (Auto) Eos % (Auto) Baso % (Auto) Lymph # (Auto) Thomas # (Auto) Eos # (Auto) Baso # (Auto) Abs Immat Gran (auto) Absolute Neuts (auto) Absolute Nucleated RBC Total Counted Neutrophils % (Manual) Band Neutrophils % Lymphocytes % (Manual) Monocytes % (Manual) Eosinophils % (Manual) Nucleated RBC % Abs Neuts (Manual) Abs Lymphs (Manual) Abs Monocytes (Manual) Absolute Eos (Manual) Platelet Estimate Hypochromasia Anisocytosis PT INR APTT D-Dimer Sodium Potassium Chloride Carbon Dioxide Anion Gap BUN Creatinine Estim Creat Clear Calc Estimated GFR Glucose POC [place]
== END 2020-05-05 17:59 | disposition home or self-care (01) ==
LOC: ANHED 21:03 → ANHIMU 23:36
PROVIDERS: Admitting Provider Internal Medicine; Emergency Provider Emergency Medicine; PCP Family Medicine Sports Medicine; Visit Provider Family Medicine
DX: R07.9 Chest pain, unspecified (principal); I47.1 Supraventricular tachycardia; J96.11 Chronic respiratory failure with hypoxia; R77.8 Other specified abnormalities of plasma proteins; I48.20 Chronic atrial fibrillation, unspecified; I25.10 Atherosclerotic heart disease of native coronary artery without angina pectoris; I11.0 Hypertensive heart disease with heart failure; I50.30 Unspecified diastolic (congestive) heart failure; E11.42 Type 2 diabetes mellitus with diabetic polyneuropathy; J44.9 Chronic obstructive pulmonary disease, unspecified; I25.2 Old myocardial infarction; K21.9 Gastro-esophageal reflux disease without esophagitis; E78.5 Hyperlipidemia, unspecified; Z99.81 Dependence on supplemental oxygen; F41.8 Other specified anxiety disorders; K58.9 Irritable bowel syndrome, unspecified; G47.33 Obstructive sleep apnea (adult) (pediatric); M06.9 Rheumatoid arthritis, unspecified; D64.9 Anemia, unspecified; Z79.84 Long term (current) use of oral hypoglycemic drugs; Z79.01 Long term (current) use of anticoagulants; Z95.5 Presence of coronary angioplasty implant and graft; Z87.891 Personal history of nicotine dependence; F12.90 Cannabis use, unspecified, uncomplicated; Z79.82 Long term (current) use of aspirin
CPT/HCPCS: 36415; 71045; 80053; 82948; 83605; 83735; 84484; 85025; 85380; 85610; 85730; 93005; 94640; 96374; 96375; 99285; A9270; G0378; J0153; J1170; J2060; J3475; J7030; J7512

== ENCOUNTER 2020-05-12 08:47 | Inpatient (IN) | payer MEDICARE, SELFPAY ==
[2020-05-12] VITALS (22 sets, daily range): BP systolic 126–166; BP diastolic 60–106; PULSE 84–202; RESP 18–28; TEMP 35.9–37.1; O2SAT 94–100; BMI 23.8
--- NOTE | ~2020-05-12 | XR_ITS ---
EXAMINATION: XR chest 1V portable DATE: 05/12/2020 09:20 INDICATION: Chest pain TECHNIQUE: frontal view of the chest was obtained. COMPARISON: Chest radiograph dated 05/04/[address] dated 11/20/2019 FINDINGS: Again seen are coarse reticular opacities throughout both lungs consistent with emphysema with superi mposed either chronic interstitial lung disease or mild pulmonary edema. No pleural effusion or pneum othorax. There is enlargement of the central pulmonary arteries which might account for a now more ma sslike 3 cm opacity at the right hilum. The cardiomediastinal silhouette is normal. Atherosclerotic thoracic aorta. Several old healed right-sided rib fractures. IMPRESSION: 1. Bilateral coarse reticular opacities consistent with chronic interstitial fibrosis or mild pulmona ry edema superimposed over emphysema. 2. Indeterminate 3 similar masslike opacity right hilum which may be related to enlargement of the ce ntral pulmonary arteries consistent with pulmonary arterial hypertension. Differential would include primary pulmonary malignancy and right hilar lymphadenopathy which could be either reactive or metast atic. Consider repeat chest CT for further evaluation. Reviewed, dictated and finalized at location B. IMPRESSION: 1. Bilateral coarse reticular opacities consistent with chronic interstitial fi brosis or mild pulmonary edema superimposed over emphysema. 2. Indeterminate 3 similar masslike opacity right hilum which may be related to enlargement of the central pulmonary arteries consistent with pulmonary arteri al hypertension. Differential would include primary pulmonary malignancy and ri ght hilar lymphadenopathy which could be either reactive or metastatic. Conside r repeat chest CT for further evaluation.
[2020-05-12] MEDS: ADENOSINE IV SOLN 6 MG/2 ML VIAL IV PUSH (08:54)
--- NOTE | 2020-05-12 08:54 | PC.NURSE ---
0854: at bedside, VORB for 6mg adenosine given
--- NOTE | 2020-05-12 09:06 | ECG_ITS ---
Measurements Intervals [place] Rate: 152 P: 57 MA: 167 QRS: -32 QRSD: 98 T: 82 QT: 265 QTc: 422 Interpretive Statements ATRIAL FLUTTER/TACHYCARDIA WITH RAPID VENTRICULAR RESPONSE LEFT AXIS DEVIATION CANNOT RULE OUT SEPTAL INFARCT, AGE INDETERMINATE BORDERLINE ST-T WAVE ABNORMALITY- HIGH LATERAL LEADS BASELINE ARTIFACT- V5-V6 ABNORMAL ECG Electronically Signed On 05-12-2020 10:51:18 CDT by Joshua Bennett D.O.
--- NOTE | 2020-05-12 09:09 | ED.ARRPALP ---
HPI - Arrhythmia/Palpitations General Chief Complaint: Arrhythmia/Palpitations Stated Complaint: heart racing Source: RN notes reviewed History of Present Illness HPI narrative: Patient presents to emergency department from home via EMS for chest pain and SVT. Patient states that over the past several days she has been having normal episodes of her heart racing she is to these been associate with midsternal chest pain that does not radiate patient was found to be in SVT by EMS in route and was given adenosine 6 mg and 12 mg with each episode resulting in a heart rate briefly slowing down and then returning into SVT. Patient states she has had midsternal chest tightness with this as well as a feeling shortness of breath. She is on COPD patient who is chronically on 4 L nasal cannula patient was just admitted to the hospital 1 week ago for similar episode and required cardioversion and ultimately placed on Cardizem patient states she has not taken her morning medications and is followed by Dr. Farr states that she is scheduled to see electrophysiology at [facility] Related Data Home Medications Medication Instructions Recorded Confirmed potassium chloride 20 meq PO DAILY PRN 03/21/19 05/04/20 metformin 500 mg PO BID 08/26/19 05/04/20 Brilinta 90 mg PO BID 11/08/19 05/04/20 Daliresp 500 mcg PO DAILY 11/08/19 05/04/20 losartan 50 mg PO DAILY 11/08/19 05/04/20 albuterol sulfate [Ventolin HFA] 2 puff INHALATION Q4-6H PRN 11/11/19 05/04/20 acetaminophen 325 mg tablet 650 mg PO Q6H PRN tablet 04/07/20 05/04/20 furosemide 40 mg tablet 40 mg PO QAM 04/07/20 05/04/20 alendronate 70 mg tablet 70 mg PO WEEKLY 05/09/20 duloxetine 30 mg capsule,delayed 30 mg PO DAILY 05/09/20 release sertraline 50 mg tablet 50 mg PO DAILY 05/09/20 Allergies Allergy/AdvReac Type Severity Reaction Status Date / Time morphine Allergy Unknown Itching Verified 05/12/20 11:49 pregabalin Allergy Unknown Itching Verified 05/12/20 09:01 Review of Systems Review of Systems: Narrative: Gen.: Denies fevers or chills ENT: Denies congestion Respiratory: Denies shortness of breath or cough CV: See HPI GI: Denies abdominal pain nausea, emesis or diarrhea Musculoskeletal: Denies back pain or muscle pain Neuro: Denies numbness, tingling, weakness or focal weakness Skin: Denies rash Except as documented, all other systems reviewed and negative [facility] Past Medical History Medical History A-fib With an ablation and paroxysmal Anxiety Arthritis CAD (coronary artery disease) s/p 3 stents (mid LAD, mid CX, mid RCA) after Non STEMI May 201706/2019: Stent to the distal RCA, POBA PDA Chronic anemia Chronic respiratory failure with hypoxia Chronically on oxygen at 5 L per nasal cannula. Closed intertrochanteric fracture of right hip Treated non operatively October 2019 Congestive heart failure Diastolic with most recent echocardiogram January 2019 demonstrating paradoxical septal motion consistent with right ventricular volume overload or elevated right ventricular end-diastolic pressure, EF 60-65%, mildly increased left ventricular wall thickness, grade 1 diastolic dysfunction, severely reduced right ventricular systolic function, severely enlarged right ventricular chamber, severely enlarged right atrial chamber, [id number] mitral valve regurgitation, trace tricuspid regurgitation, mild pulmonary hypertension with RVSP of 46 COPD (chronic obstructive pulmonary disease) Depression DM2 (diabetes mellitus, type 2) GERD (gastroesophageal reflux disease) Heart attack Heart disease History of kidney stones HTN (hypertension) Hyperlipidemia Hypomagnesemia Irritable bowel Kidney stone 2003 with surgery Obstructive sleep apnea With last sleep study March 2019 recommending auto bilevel with 5 L of oxygen Peripheral neuropathy PSVT (paroxysmal supraventricular tachycardia) Pulmonary nodules Rheu
[2020-05-12 09:10] LABS: Basophils Absolute Auto 0.1 K/mm3 (0.0-0.1); Basophils Percent Auto 0.6 % (0.2-1.2); Eosinophils Absolute Auto 1.5 K/mm3 (0-0.3); Eosinophils Percent Auto 15.8 % (0-4.4); Hematocrit 31.2 % (37.0-47.0); Hemoglobin 9.6 g/dL (12.0-15.0); Immature Granulocyte Absolute 0.05 K/mm3 (0.00-0.031); Immature Granulocyte Percent A 0.5 % (0-0.5); Lymphocytes Absolute Auto 2.11 K/mm3 (0.9-3.2); Lymphocytes Percent Auto 21.7 % (18.3-44.2); Mean Corpuscular HGB Conc 30.8 g/dl (32-36); Mean Corpuscular Hemoglobin 25.9 pg (26-34); Mean Corpuscular Volume 84.1 fl (80-100); Mean Platelet Volume 9.9 fl (7.4-10.4); Monocytes Absolute Auto 0.6 K/mm3 (0.1-0.6); Monocytes Percent Auto 6.3 % (2.6-8.5); Neutrophils Absolute Auto 5.4 K/mm3 (1.3-6.7); Neutrophils Percent Auto 55.1 % (45.5-73.1); Platelet Count Result 203 k/mm3 (150-375); Red Blood Count 3.71 M/mm3 (4.2-5.4); White Blood Count 9.7 K/mm3 (4.5-10.0)
[2020-05-12 09:24] LABS: INR 0.9; Prothrombin Time 12.9 Seconds (11.1-14.7)
[2020-05-12 09:26] LABS: Alanine Aminotransferase 9 U/L (4-35); Albumin Level 3.6 g/dL (3.5-5.1); Alkaline Phosphatase 77 U/L (38-126); Anion Gap 6 mmol/L (8-16); Aspartate Amino Transferase 16 U/L (14-36); Bilirubin,Total 0.4 mg/dL (0.2-1.3); Blood Urea Nitrogen 21 mg/dL (7-17); Calcium 9.2 mg/dL (8.4-10.2); Carbon Dioxide 31 mmol/L (22-30); Chloride 101 mmol/L (98-107); Estimated CRCL calculation 35 ml/min; Estimated Glomerular Filt Rate 49; Glucose 236 mg/dL (65-105); Magnesium 1.1 mg/dL (1.6-2.3); Potassium 3.7 mmol/L (3.4-5.0); Sodium 138 mmol/L (137-145)
[2020-05-12] MEDS: AMIODARONE 150 MG/D5W 100 ML 150 MG/100 ML BAG 600 MG IV CONT (09:33)
[2020-05-12 09:37] LABS: Troponin I 0.021 ng/mL (0.000-0.034)
[2020-05-12] MEDS: AMIODARONE 360 MG/D5W 200 ML 360 MG/200 ML BAG 33.33 MG IV CONT (09:45)
[2020-05-12] MEDS: MAGNESIUM SULF 2 GM/WATER 50ML 2 GM/50 ML BAG IVPB (09:45)
--- NOTE | 2020-05-12 10:31 | ECG_ITS ---
Measurements Intervals [place] Rate: 137 P: 71 NE: 219 QRS: -37 QRSD: 104 T: 84 QT: 260 QTc: 393 Interpretive Statements SUPRAVENTRICULAR TACHYCARDIA LEFT AXIS DEVIATION CANNOT RULE OUT SEPTAL INFARCT, AGE INDETERMINATE BORDERLINE ST-T WAVE ABNORMALITY- HIGH LATERAL LEADS BASELINE ARTIFACT- V5 ABNORMAL ECG Electronically Signed On 05-12-2020 12:44:27 CDT by Joshua Bennett D.O.
--- NOTE | 2020-05-12 12:20 | ADMGEN ---
This patient, Piedad Andrade, was admitted to IMU Room 213-01. Patient/family oriented to hospital policies and general routines including ID bracelet, bed and alarms, visiting hours, pain management, procedures, bathroom and other care routines, personal items, smoking policy, room service/diet, and visiting hours. Information on how to activate the Rapid Response Team has been discussed. Patient/Family are encouraged to report perceived risks to care and to ask questions if they do not understand what they are told or what they should do.
--- NOTE | 2020-05-12 13:22 | PM.IMHP ---
H&P: HPI History of Present Illness Date/Time: 05/12/20 13:22 who has a past medical history of atrial fibrillation. The patient stated that she has a rapid heart rate on and off but it typically resolves on its own. The patient stated that she had an ablation approximately 1 year ago. The patient stated that she chronically wears oxygen at 4 L per nasal cannula. To the emergency approximately 1 week ago for the same thing. And seen by Dr. smith. The patient had an elevated troponin at that time and it was thought to be related to her extreme tachycardia. She was continued with metoprolol and diltiazem. Today the patient was found to be into SVT and she received adenosine x2 via EMS. She is currently on an amiodarone drip. The patient stated that she is scheduled to see electro physicist at [facility]. Her H&H is 9.6 and 31.2. Creatinine 1.10. Glucose 236. Troponin was negative today. Admitted to inpatient she was given adenosine x2 sounds like EN route. She was given amiodarone drip, Tylenol IV, and magnesium sulfate IV. Date of service is 05/12/2020. Chief Complaint: Chest pain Review of Systems Review of Systems: All systems reviewed & are unremarkable except as noted in HPI and below Constitutional: Constitutional: Reports as per HPI and Reports no additional constitutional complaints Eyes: Eyes: Reports as per HPI and Reports no additional eye complaints ENT: Reports system reviewed and no additional complaints, except as documented and Reports Normal hearing present Cardiovascular: Cardiovascular: Reports no additional cardiovascular complaints Respiratory: Respiratory: Reports no additional respiratory complaints and Reports no additional respiratory complaints Gastrointestinal: Gastrointestinal: Reports as per HPI and Reports no additional gastrointestinal complaints Musculoskeletal: Musculoskeletal: Reports no additional musculoskeletal complaints Integumentary/Breasts: Skin/Breast: Reports system reviewed and no additional complaints, except as docu and Reports as per HPI Neurologic: Reports system reviewed and no additional complaints, except as documented, Reports as per HPI and Reports Normal hearing present Psychiatric: Psychiatric: Reports no additional psychiatric complaints and Reports as per HPI Endocrine: Endocrine: Reports no additional endocrine complaints Hematologic/Lymphatic: Hematologic/Lymphatic: Reports no additional hematologic/lymphatic complaints Allergic/Immunologic: Allergic/Immunologic: Reports no additional allergic/immunologic complaints [facility] Past Medical History Medical History A-fib With an ablation and paroxysmal Anxiety Arthritis CAD (coronary artery disease) s/p 3 stents (mid LAD, mid CX, mid RCA) after Non STEMI May 201706/2019: Stent to the distal RCA, POBA PDA Chronic anemia Chronic respiratory failure with hypoxia Chronically on oxygen at 5 L per nasal cannula. Closed intertrochanteric fracture of right hip Treated non operatively October 2019 Congestive heart failure Diastolic with most recent echocardiogram January 2019 demonstrating paradoxical septal motion consistent with right ventricular volume overload or elevated right ventricular end-diastolic pressure, EF 60-65%, mildly increased left ventricular wall thickness, grade 1 diastolic dysfunction, severely reduced right ventricular systolic function, severely enlarged right ventricular chamber, severely enlarged right atrial chamber, [id number] mitral valve regurgitation, trace tricuspid regurgitation, mild pulmonary hypertension with RVSP of 46 COPD (chronic obstructive pulmonary disease) Depression DM2 (diabetes mellitus, type 2) GERD (gastroesophageal reflux disease) Heart attack Heart disease History of kidney stones HTN (hypertension) Hyperlipidemia Hypomagnesemia Irritable bowel Kidney stone 2003 with surgery Obstructive sleep
[2020-05-12 13:31] LABS: Glucose Point of Care 189 (65-105)
--- NOTE | 2020-05-12 14:27 | PC.NURSE ---
Notified Dr. Lr of patient's heart rate increasing as high as 195. Pt currently on Amiodarone drip. No new medication orders. New order to adjust telementry parameters to high rate of 160.
[2020-05-12 14:57] LABS: Hemoglobin A1C 6.5 % (<5.7)
[2020-05-12 15:09] LABS: Troponin I 0.076 ng/mL (0.000-0.034)
[2020-05-12] MEDS: AMIODARONE 360 MG/D5W 200 ML 360 MG/200 ML BAG 16.67 MG IV CONT (15:26)
--- NOTE | 2020-05-12 15:29 | PM.CNCAR ---
Assessment and Plan Additional Plan 70-year-old woman with: History of atrial tachyarrhythmias according to the record she has had atrial fibrillation, SVT and today it looks like an EKG she actually has atrial flutter with RVR. Not surprisingly these tachyarrhythmias are associated with some symptoms of chest pain because she also has multivessel coronary artery disease. Her most recent PCI was about 10 months ago according to the chart. She does remain on dual anti-platelet therapy. Today we are going to replace the diltiazem with intravenous amiodarone she is receiving this intravenously. Hopefully this will convert her and restore sinus rhythm. The metoprolol will be continued. Because of the recurrent AFib/a flutter I believe we need to anticoagulate her and so I am going to transition her from Brilinta to apixaban since her PCI was about 10 months ago according to the record. She has an appointment to see her stand up forklift operator in [place] on Tuesday of this week. Hopefully we will be able to discharge her soon enough to allow that appointment to occur. Terrence Lr MD [facility] History of Present Illness History of Present Illness Consult date/time: 05/12/20 15:29 Reason For Visit: heart racing Narrative: This is a 70-year-old woman with a history of coronary artery disease as well as atrial tachyarrhythmias who I am seeing at the request of the hospitalist and ER staff to after she was admitted with tachy palpitations and chest pain earlier this morning. The patient follows with Dr. Farr of our practice and the details of her coronary disease and arrhythmias are well outlined in his note from last week and will not be completely reiterated in this note. Apparently she has a history of ischemic heart disease with a non ST elevation [place] in 2017 at which time she underwent PCI of all of her [place] coronary arteries. She apparently presented with recurrent symptoms of chest pain and underwent follow-up PCI of the right coronary artery in June of 2019. She also has a history of atrial fibrillation and according to the record history of SVT and was treated with medication and also treated by electrophysiology financial services consultant at [facility] with an AFib ablation procedure in 2018. According to the patient and her she did well the EP physician indicated that she could be seen on a p.r.n. fashion after a follow-up appointment last summer showed her rhythm to be stable. Last week the patient was readmitted to the hospital with this similar problems she had atrial tachyarrhythmias was treated in the emergency room with is both cardioversion, bolus of amiodarone and intravenous diltiazem. With all of those measures she did restore back to sinus rhythm and was seen briefly in the hospital by Dr. gtz. He recommended follow-up with her EP physician which is actually scheduled for of this week. She states that after being discharged a week ago on Tuesday she was doing well over the week she did have some episodes of tachycardia and palpitations that were more self-limited. This began again this morning but was not self-limited and so she came back to this hospital for further evaluation and treatment. I was called about this when I was upstairs in the [place]. I ordered for her to be placed on intravenous amiodarone the 2 boluses and infusion and in this setting I am seeing her in the IMU. She still is tachycardic. Upon my review of the electrocardiograms it looks as she is probably in atrial flutter today with variable conduction and was resting comfortably when I came in to see her although she is reporting some chest pain. She also has a modest rise in her troponin is in this setting which she also had last week. Her regimen after discharge from last week included both diltiazem at a dosage of 60 mg 3 times daily and metoprolol at a dosage of 150 mg daily. In addition to this she is still taking dual anti-platelet therapy in the
[2020-05-12] MEDS: predniSONE 5 MG TABLET PO (15:42)
[2020-05-12] MEDS: oxyCODONE HCL (*CRX) 5 MG TAB IR PO (15:49)
[2020-05-12] MEDS: DIGOXIN INJ 250 MCG/ML 2 ML AMP (*BKC) 500 MCG IV PUSH (15:51)
--- NOTE | 2020-05-12 16:37 | ECG_ITS ---
Measurements Intervals [place] Rate: 106 P: 66 MS: 138 QRS: -28 QRSD: 94 T: 82 QT: 325 QTc: 433 Interpretive Statements SINUS TACHYCARDIA POSSIBLE LEFT ATRIAL ENLARGEMENT CANNOT RULE OUT SEPTAL INFARCT, AGE INDETERMINATE BORDERLINE ST-T WAVE ABNORMALITY- HIGH LATERAL LEADS BASELINE WANDER- V1-V2, V6 ABNORMAL ECG Electronically Signed On 05-12-2020 16:51:32 CDT by Joshua Bennett D.O.
[2020-05-12 17:34] LABS: Troponin I 0.099 ng/mL (0.000-0.034)
[2020-05-12] MEDS: MEGESTROL ACETATE (*CHEMO) 40 MG TABLET PO (17:40)
[2020-05-12] MEDS: APIXABAN 5 MG TABLET PO (20:05)
[2020-05-12 20:50] LABS: Glucose Point of Care 219 (65-105)
[2020-05-13] VITALS (14 sets, daily range): BP systolic 165–180; BP diastolic 74–84; PULSE 76–109; RESP 16–18; TEMP 35.9–36.6; O2SAT 97–100
[2020-05-13] MEDS: AMIODARONE 360 MG/D5W 200 ML 360 MG/200 ML BAG 16.67 MG IV CONT (02:54)
[2020-05-13 05:11] LABS: Basophils Absolute Auto 0.1 K/mm3 (0.0-0.1); Basophils Percent Auto 0.7 % (0.2-1.2); Eosinophils Absolute Auto 1.8 K/mm3 (0-0.3); Eosinophils Percent Auto 19.9 % (0-4.4); Hematocrit 32.1 % (37.0-47.0); Hemoglobin 9.7 g/dL (12.0-15.0); Immature Granulocyte Absolute 0.03 K/mm3 (0.00-0.031); Immature Granulocyte Percent A 0.3 % (0-0.5); Lymphocytes Absolute Auto 1.73 K/mm3 (0.9-3.2); Lymphocytes Percent Auto 19.6 % (18.3-44.2); Mean Corpuscular HGB Conc 30.2 g/dl (32-36); Mean Corpuscular Hemoglobin 25.8 pg (26-34); Mean Corpuscular Volume 85.4 fl (80-100); Mean Platelet Volume 9.8 fl (7.4-10.4); Monocytes Absolute Auto 0.5 K/mm3 (0.1-0.6); Monocytes Percent Auto 5.6 % (2.6-8.5); Neutrophils Absolute Auto 4.8 K/mm3 (1.3-6.7); Neutrophils Percent Auto 53.9 % (45.5-73.1); Platelet Count Result 193 k/mm3 (150-375); Red Blood Count 3.76 M/mm3 (4.2-5.4); Red Cell Distribution Width 16.3 % (11.5-14.5); White Blood Count 8.8 K/mm3 (4.5-10.0)
[2020-05-13 05:31] LABS: Anion Gap 4 mmol/L (8-16); Blood Urea Nitrogen 18 mg/dL (7-17); Calcium 8.8 mg/dL (8.4-10.2); Carbon Dioxide 30 mmol/L (22-30); Chloride 106 mmol/L (98-107); Estimated CRCL calculation 38 ml/min; Estimated Glomerular Filt Rate 55; Glucose 135 mg/dL (65-105); Magnesium 1.7 mg/dL (1.6-2.3); Potassium 4.5 mmol/L (3.4-5.0); Sodium 140 mmol/L (137-145)
[2020-05-13] MEDS: THERAPEUTIC MULTIVITAMINS/MINERALS TAB (*BKC) 1 TABLET PO (07:55)
[2020-05-13] MEDS: SERTRALINE HCL 50 MG TABLET PO (07:55)
[2020-05-13] MEDS: METOPROLOL SUCCINATE EXT REL 50 MG TABCR 150 MG PO (07:55)
[2020-05-13] MEDS: ACETAMINOPHEN 325 MG TABLET 650 MG PO (07:55)
[2020-05-13] MEDS: MAGNESIUM OXIDE 400 MG TABLET PO (07:56)
[2020-05-13] MEDS: ASPIRIN 81 MG CHEWABLE TABLET PO (07:56)
[2020-05-13] MEDS: FUROSEMIDE 40 MG TABLET PO (07:56)
[2020-05-13] MEDS: ROFLUMILAST 500 MCG TABLET PO (07:56)
[2020-05-13] MEDS: ATORVASTATIN 20 MG TABLET PO (07:56)
[2020-05-13] MEDS: APIXABAN 5 MG TABLET PO (07:56)
[2020-05-13] MEDS: POTASSIUM CHLORIDE 20 MEQ TABLET.ER PO (07:56)
[2020-05-13] MEDS: predniSONE 5 MG TABLET PO (07:56)
[2020-05-13] MEDS: DULoxetine HCL 30 MG CAPSULE.DR PO (07:56)
[2020-05-13] MEDS: MEGESTROL ACETATE (*CHEMO) 40 MG TABLET PO ×2 (07:56→13:40)
[2020-05-13 08:04] LABS: Glucose Point of Care 126 (65-105)
[2020-05-13] MEDS: FLUTICASONE/UMECLIDIN/VILANTER 100-62.5-25 MCG ELLIPTA 1 PUFF INHALATION (08:25)
[2020-05-13 11:50] LABS: Glucose Point of Care 167 (65-105)
--- NOTE | 2020-05-13 12:50 | PM.PNCARD ---
Progress Note: A&P Assessment and Plan (1) Atrial flutter with rapid ventricular response: Code(s): I48.92 - Unspecified atrial flutter Status: Acute Assessment and Plan: Converted to sinus rhythm on amiodarone. Continue Toprol XL 150mg daily, apixaban 5 mg twice daily, and amiodarone with a tapering dose. Recommend amiodarone 400 mg 3 times daily for 2 days, 400 mg twice daily for 1 week, then 400 mg daily for 1 week then 200 mg daily thereafter. She has an appointment with the electrophysiology later this week. She will keep that appointment as scheduled. Disposition per hospitalist service. Stable for discharge from cardiac perspective provided she remains in sinus rhythm. Discussed with patient and at bedside. Continue Lasix 40 mg p.o. daily. (2) Paroxysmal atrial fibrillation: Code(s): I48.0 - Paroxysmal atrial fibrillation Status: Acute Assessment and Plan: Stable. Anticoagulation as above. (3) CAD (coronary artery disease): Qualifiers: Associated angina: without angina Coronary Disease-Associated Artery/Lesion type: [place] artery [place] vs. transplanted heart: [place] heart Qualified Code(s): I25.10 - Atherosclerotic heart disease of [place] coronary artery without angina pectoris Code(s): I25.10 - Atherosclerotic heart disease of [place] coronary artery without angina pectoris Status: Acute Assessment and Plan: Status post PCI 10 months ago. Brilinta has been discontinued by Dr. Lr to reduce bleeding risk as she require systemic anticoagulation. Apixaban has been initiated. Monitor for bleeding. Continue aspirin 81 mg daily, atorvastatin. (4) HTN (hypertension): Code(s): I10 - Essential (primary) hypertension Status: Chronic Assessment and Plan: BP high. Resume losartan. Subjective Date/time seen: Date of service: 05/13/20 12:50 Follow-up for atrial fibrillation with rapid ventricular response Feels much better. Maintaining sinus rhythm on IV amiodarone. Received IV digoxin x1 yesterday. Brilinta discontinued, apixaban initiated for systemic anticoagulation along with aspirin. No chest pain, shortness of breath or palpitations. Patient ready to go home. Review of Systems Review of Systems: All systems reviewed & are unremarkable except as noted in HPI and below Constitutional: Constitutional: Reports as per HPI and Reports no additional constitutional complaints Eyes: Eyes: Reports as per HPI and Reports no additional eye complaints ENT: Reports system reviewed and no additional complaints, except as documented and Reports as per HPI Cardiovascular: Cardiovascular: Reports as per HPI, Denies chest pain, Denies palpitations and Reports dyspnea Respiratory: Respiratory: Reports as per HPI and Denies dyspnea Gastrointestinal: Gastrointestinal: Reports as per HPI and Reports no additional gastrointestinal complaints Genitourinary: Genitourinary: Reports as per HPI and Denies hematuria Musculoskeletal: Musculoskeletal: Reports no additional musculoskeletal complaints and Reports as per HPI Integumentary/Breasts: Skin/Breast: Reports as per HPI Neurologic: Reports system reviewed and no additional complaints, except as documented and Reports as per HPI Psychiatric: Psychiatric: Reports as per HPI Endocrine: Endocrine: Reports no additional endocrine complaints and Denies palpitations Hematologic/Lymphatic: Hematologic/Lymphatic: Reports no additional hematologic/lymphatic complaints and Reports as per HPI Allergic/Immunologic: Allergic/Immunologic: Reports no additional allergic/immunologic complaints and Reports as per HPI Exam Const: General: comfortable and no acute distress HENMT: Mouth: Yes moist mucous membranes Eyes: Sclera: sclerae normal Pupils: Equal, round and reactive pupils present Neck: Neck: supple and no JVD Carotids: bruit Other: Normal carotid upstrokes, no bruits Resp:
[2020-05-13] MEDS: AMIODARONE HCL 200 MG TABLET 400 MG PO (13:39)
--- NOTE | 2020-05-13 13:55 | PM.DS ---
DS: Admitting Diagnosis Admitting Diagnosis Admitting Diagnosis: (1) SVT (supraventricular tachycardia): (2) Chest pain: (3) Atrial fibrillation with rapid ventricular response: (4) CHF (congestive heart failure): (5) HTN (hypertension): (6) COPD (chronic obstructive pulmonary disease): (7) Diabetes: (8) JOAQUIN (obstructive sleep apnea): DS: Discharge Diagnosis Discharge Diagnosis (1) Atrial flutter with rapid ventricular response: Code(s): I48.92 - Unspecified atrial flutter Status: Acute Assessment and Plan: Rate controlled on Amiodarone. (2) Hypomagnesemia: Code(s): E83.42 - Hypomagnesemia Status: Acute Assessment and Plan: On po Magnesium. (3) Elevated troponin: Code(s): R77.8 - Other specified abnormalities of plasma proteins Status: Acute Assessment and Plan: Type ii due to A.flutter with RVR (4) Pulmonary hypertension: Code(s): I27.20 - Pulmonary hypertension, unspecified Status: Acute Assessment and Plan: Follow up in the outpatient setting (5) Former smoker: Code(s): Z87.891 - Personal history of nicotine dependence Status: Acute Assessment and Plan: Continue to monitor (6) COPD (chronic obstructive pulmonary disease): Qualifiers: COPD type: unspecified COPD Qualified Code(s): J44.9 - Chronic obstructive pulmonary disease, unspecified Code(s): J44.9 - Chronic obstructive pulmonary disease, unspecified Status: Chronic Assessment and Plan: Does not appear to be exacerbated. (7) JOAQUIN (obstructive sleep apnea): Code(s): G47.33 - Obstructive sleep apnea (adult) (pediatric) Status: Chronic Assessment and Plan: Continue CPAP DS: Summary Hospital Course Reason for hospitalization: Palpitations. Hospital Course: who has a past medical history of atrial fibrillation. The patient stated that she has a rapid heart rate on and off but it typically resolves on its own.She had an ablation approximately 1 year ago, she chronically wears oxygen at 4 L per nasal cannula. Was to the emergency approximately 1 week ago for the same thing. And seen by her Nut Sorter Operator. The patient had an elevated troponin at that time and it was thought to be related to her tachycardia. She was continued with metoprolol and diltiazem. Today the patient was found to be into SVT and she received adenosine x2 via EMS. She is currently on an amiodarone drip. The patient stated that she is scheduled to see electro physicist at [facility]. Her H&H is 9.6 and 31.2. Creatinine 1.10. Glucose 236. Troponin was negative today. Admitted to inpatient she was given adenosine x2 sounds like EN route. She was given amiodarone drip, Tylenol IV, and magnesium sulfate IV. Patient was admitted to IMU and was seen by Cardiology on consult. Her heart rate was controlled with Amiodarone drip. Her Diltiazem was discontinued and she was placed on Amiodarone po going home She will follow up with her regulatory agency director in the outpatient setting. Status at Discharge Cognitive/behavioral status at discharge: AOx3 Functional status at discharge: independent ambulation Time Spent with Patient Time attestation: Total time spent providing and/or coordinating discharge services: Time spent: Greater than 30 minutes Exam Const: General: healthy appearing, comfortable, well developed, alert, awake and Physically active Nutritional Appearance: well nourished Orientation/consciousness: patient oriented x3 HENMT: Head: normal to inspection and atraumatic Ears: hearing grossly normal bilaterally General nose exam: Normal external nose present Face and sinus: normal facial exam Eyes: General: appearance normal, both eyes and all related structures Pupils: Equal, round and reactive pupils present EOM: EOMs intact bilaterally Neck: Neck: normal
== END 2020-05-13 14:45 | disposition home or self-care (01) | DRG 309 ==
LOC: ANHED 09:22 → ANHIMU 12:02
PROVIDERS: Nurse Practitioner; Admitting Provider Family Medicine; Emergency Provider Emergency Medicine; PCP Family Medicine Sports Medicine; Visit Provider Internal Medicine
DX: I48.92 Unspecified atrial flutter (principal); J96.11 Chronic respiratory failure with hypoxia; E11.42 Type 2 diabetes mellitus with diabetic polyneuropathy; I27.20 Pulmonary hypertension, unspecified; I11.0 Hypertensive heart disease with heart failure; I50.9 Heart failure, unspecified; Z99.81 Dependence on supplemental oxygen; I48.0 Paroxysmal atrial fibrillation; I47.1 Supraventricular tachycardia; R77.8 Other specified abnormalities of plasma proteins; I25.10 Atherosclerotic heart disease of native coronary artery without angina pectoris; I25.2 Old myocardial infarction; F17.210 Nicotine dependence, cigarettes, uncomplicated; J44.9 Chronic obstructive pulmonary disease, unspecified; E83.42 Hypomagnesemia; G47.33 Obstructive sleep apnea (adult) (pediatric); Z79.82 Long term (current) use of aspirin; Z79.899 Other long term (current) drug therapy; Z95.5 Presence of coronary angioplasty implant and graft; Z98.42 Cataract extraction status, left eye; Z98.41 Cataract extraction status, right eye
CPT/HCPCS: 36415; 71045; 80048; 80053; 82948; 83036; 83735; 84443; 84484; 85025; 85610; 85730; 93005; 94640; 96365; 96367; 96368; 96375; 99285; A9270; J0131; J0153; J0282; J1160; J3475; J7512

== ENCOUNTER 2020-07-09 13:45 | Outpatient (CLI) | payer MEDICARE, SELFPAY ==
[2020-07-09 14:18] LABS: Hematocrit 26.9 % (37.0-47.0); Hemoglobin 7.9 g/dL (12.0-15.0); Mean Corpuscular HGB Conc 29.4 g/dl (32-36); Mean Corpuscular Hemoglobin 24.8 pg (26-34); Mean Corpuscular Volume 84.3 fl (80-100); Platelet Count Result 227 k/mm3 (150-375); Red Blood Count 3.19 M/mm3 (4.2-5.4); White Blood Count 7.3 K/mm3 (4.5-10.0)
[2020-07-09 14:30] LABS: Add Urine Microscopic? YES; Appearance Urine Cloudy (Clear); Bacteria Urine 1+ /hpf; Bilirubin Urine Negative (Negative); Blood Urine 3+ (Negative); Color Urine Yellow (Yellow); Glucose Urine UA Negative (Negative); Ketones Urine Negative (Negative); Leukocyte Esterase Ur Trace LEU/UL (NEGATIVE); Mucus Urine Rare /lpf; Nitrate Urine Positive (Negative); Protein Urine 2+ mg/dL (Negative); RBC Urine >75 /hpf (0-2); Squamous Epithelial Cell Urine Many /hpf (Few); Urobilinogen Urine Negative mg/dL (<2.0); WBC Urine 21-30 /hpf (0-3)
[2020-07-09 14:31] LABS: Alanine Aminotransferase 11 U/L (4-35); Albumin Level 3.7 g/dL (3.5-5.1); Alkaline Phosphatase 95 U/L (38-126); Anion Gap 3 mmol/L (8-16); Aspartate Amino Transferase 18 U/L (14-36); Bilirubin,Total 0.2 mg/dL (0.2-1.3); Blood Urea Nitrogen 24 mg/dL (7-17); CRP 0.7 mg/dL (<1.0); Calcium 9.5 mg/dL (8.4-10.2); Carbon Dioxide 34 mmol/L (22-30); Chloride 103 mmol/L (98-107); Estimated Glomerular Filt Rate 34; Glucose 209 mg/dL (65-105); Potassium 5.2 mmol/L (3.4-5.0); Sodium 140 mmol/L (137-145)
[2020-07-09 15:07] LABS: Erythrocyte Sedimentation Rate > 140 mm/hr (0-20)
== END 2020-07-09 13:46 | disposition home or self-care (01) ==
PROVIDERS: PCP Family Medicine Sports Medicine; Visit Provider Internal Medicine
DX: M06.9 Rheumatoid arthritis, unspecified (principal); M19.90 Unspecified osteoarthritis, unspecified site; J44.9 Chronic obstructive pulmonary disease, unspecified
CPT/HCPCS: 36415; 80053; 81001; 85027; 85652; 86140

== ENCOUNTER 2020-07-11 10:58 | Outpatient (CLI) | payer MEDICARE, SELFPAY ==
[2020-07-11 12:01] LABS: Hematocrit 25.9 % (37.0-47.0); Hemoglobin 7.4 g/dL (12.0-15.0)
[2020-07-11 12:39] LABS: Iron 19 ug/dL (37-170); Percent Iron Saturation 5 % (20-50)
== END 2020-07-11 10:59 | disposition home or self-care (01) ==
LOC: ANHLAB 11:01
PROVIDERS: PCP Family Medicine Sports Medicine; Visit Provider Family Medicine Sports Medicine
DX: D64.9 Anemia, unspecified (principal)
CPT/HCPCS: 36415; 82728; 83540; 83550; 85014; 85018

== ENCOUNTER 2020-07-11 16:34 | Inpatient (IN) | payer MEDICARE, SELFPAY ==
--- NOTE | ~2020-07-11 | US_ITS ---
EXAMINATION: US renal BI EXAM DATE: 07/13/2020 16:03 INDICATION: Acute kidney insufficiency. TECHNIQUE: Multiple grayscale and Doppler images of the kidneys were obtained (by a technologist who performed the scan) and subsequently reviewed. Comparison is made to prior examination from 04/14/2018 . FINDINGS: Right kidney: There is normal contour and mildly increased echogenicity. Mild renal cortical thinning . It measures 8.9 x 3.4 x 4.0 centimeters. There is an 8 mm cyst. Mildly patulous renal pelvis witho ut caliectasis. Left kidney: There is normal contour and mildly increased echogenicity. It measures 9.5 x 4.5 x 4.5 centimeters. There are no focal renal lesions identified. There is no hydronephrosis. Bladder unremarkable. IMPRESSION: 1. Mild right renal atrophy and mildly patulous pelvis without caliectasis. 2. Mildly echogenic kidneys consistent with medical renal disease. Reviewed, dictated and finalized at location A.
--- NOTE | ~2020-07-11 | XR_ITS ---
EXAMINATION: XR chest 1V portable DATE: 07/14/2020 05:33 INDICATION: Congestive heart failure. TECHNIQUE: A single frontal view of the chest was obtained. COMPARISON: Chest single view 07/13/2020, chest CT 11/20/2019 FINDINGS: The lungs are hyperexpanded with a diffuse interstitial pattern, consistent with mild pulmo nary edema superimposed on emphysema. There are airspace opacities at the lung bases, likely atelecta sis. No pleural effusion or pneumothorax. The heart size is normal. IMPRESSION: 1. Mild pulmonary edema. 2. Mild atelectasis at the lung bases. 3. Emphysema. Reviewed, dictated and finalized at location A.
--- NOTE | ~2020-07-11 | XR_ITS ---
XR chest 1V portable DATE: 07/12/2020 03:36 INDICATION: Worsening shortness of breath TECHNIQUE: Portable AP chest on 07/12/2020 at 0337 hours COMPARISON: Portable AP chest at 0921 hours on 05/12/2020 Serial portable AP chest radiographs dating back to 6 is 07/16/2019 AP and lateral chest FINDINGS: Heart size appears within normal range. There is aortic calcification and mild tortuosity. There is suggestion of mild pulmonary vascular congestion. There are increased bilateral Nathanael B-golden es and mild prominence of the minor fissure compared to 07/16/2019 suggesting mild pulmonary interstit ial and subpleural edema superimposed on chronic interstitial changes. There is minimal if any pleura l effusion. No pneumothorax. There are mild patchy infiltrates and/or atelectasis primarily in the lung bases. Diffuse osteopenia IMPRESSION: Prominent vascular and pulmonary interstitial prominence including Nathanael B-lines, promin ence of the minor fissure, mildly increased since 07/16/2019, which may indicate congestive changes flores perimposed upon chronic interstitial lung disease. Mild patchy infiltrate and/atelectasis at the lung bases primarily; consider pneumonia, atelectasis a nd/or aspiration. Reviewed, dictated and finalized at location A. IMPRESSION: Prominent vascular and pulmonary interstitial prominence including Nathanael B-lines, prominence of the minor fissure, mildly increased since 07/16/19 20, which may indicate congestive changes superimposed upon chronic interstitia l lung disease. Mild patchy infiltrate and/atelectasis at the lung bases primarily; consider pn eumonia, atelectasis and/or aspiration.
--- NOTE | ~2020-07-11 | XR_ITS ---
XR chest 1V portable DATE: 07/13/2020 05:39 INDICATION: Respiratory failure TECHNIQUE: Portable AP chest on 07/13/2020 at 0525 hours COMPARISON: 07/12/2020 portable AP chest at 0337 hours 11/24/2019 portable AP chest FINDINGS: Cardiomegaly, pulmonary vascular congestion, prominence of the minor fissure and pulmonary interstitium including Nathanael B-lines, suggesting congestive heart failure and pulmonary subpleural a nd interstitial edema. There is minimal if any pleural effusion. There are patchy infiltrates in the right mid and both lower lung zones; differential diagnosis inclu rigo pulmonary edema, pneumonia and aspiration. Aortic calcification, ectasia and mild tortuosity. Diffuse osteopenia. IMPRESSION: Congestive changes are again noted; increased bilateral pulmonary infiltrates since 2020 Reviewed, dictated and finalized at location A. IMPRESSION: Congestive changes are again noted; increased bilateral pulmonary i nfiltrates since 07/12/2020
[2020-07-11 17:12] VITALS: BP 140/58; PULSE 109; RESP 20; TEMP 37; O2SAT 99
[2020-07-11 17:24] LABS: Basophils Absolute Auto 0.1 K/mm3 (0.0-0.1); Eosinophils Absolute Auto 1.2 K/mm3 (0-0.3); Eosinophils Percent Auto 15.2 % (0-4.4); Hematocrit 26.3 % (37.0-47.0); Hemoglobin 7.4 g/dL (12.0-15.0); Immature Granulocyte Absolute 0.04 K/mm3 (0.00-0.031); Immature Granulocyte Percent A 0.5 % (0-0.5); Mean Corpuscular HGB Conc 28.1 g/dl (32-36); Mean Corpuscular Hemoglobin 24.3 pg (26-34); Mean Corpuscular Volume 86.2 fl (80-100); Mean Platelet Volume 10.5 fl (7.4-10.4); Monocytes Absolute Auto 0.3 K/mm3 (0.1-0.6); Monocytes Percent Auto 3.8 % (2.6-8.5); Neutrophils Absolute Auto 5.6 K/mm3 (1.3-6.7); Neutrophils Percent Auto 68.5 % (45.5-73.1); Platelet Count Result 235 k/mm3 (150-375); Red Blood Count 3.05 M/mm3 (4.2-5.4); Red Cell Distribution Width 16.6 % (11.5-14.5); White Blood Count 8.2 K/mm3 (4.5-10.0)
[2020-07-11 17:44] LABS: Anisocytosis 2+ (NORMAL); Hypochromasia 1+ (NORMAL); Platelet Estimate Adequate (Adequate)
--- NOTE | 2020-07-11 19:19 | PC.NURSE ---
Report to TWILA Schwab, to continue care.
--- NOTE | 2020-07-11 19:34 | ED.GENADULT ---
HPI - General Adult General Chief complaint: Unspecified Stated complaint: need a blood transfusion Time Seen by Provider: 07/11/20 18:18 Source: patient Mode of arrival: wheelchair Limitations: no limitations History of Present Illness HPI narrative: Patient is a 70 year old female who presents with . Patient reports she was sent for blood transfusion by PCP. Patient reports had labs drawn on Tuesday for rheumatology, hemoglobin 7.9. She reports seeing PCP yesterday and was sent for a lab redraw this am. Patient reports redraw today was 7.4. reports that blood was found in stool by [facility]. Patient reports generalized weakness and tired x 2 weeks. She reports that she is on Eliquis and sees Dr. Farr, cardiology. She reports that PCP spoke with DR. Farr today and stopped Eliquis and ASA today. Patient reports she did not take Eliquis or ASA today. She denies other complaints at this time. MD complaint: Abnormal labs Related Data Home Medications Medication Instructions Recorded Confirmed potassium chloride 20 meq PO DAILY PRN 03/21/19 05/12/20 metformin 500 mg PO BID 08/26/19 05/12/20 Daliresp 500 mcg PO DAILY 11/08/19 05/12/20 losartan 50 mg PO DAILY 11/08/19 05/12/20 acetaminophen 325 mg tablet 650 mg PO Q6H PRN tablet 04/07/20 05/12/20 furosemide 40 mg tablet 40 mg PO QAM 04/07/20 05/12/20 alendronate 70 mg tablet 70 mg PO WEEKLY 05/09/20 05/12/20 duloxetine 30 mg capsule,delayed 30 mg PO DAILY 05/09/20 05/12/20 release sertraline 50 mg tablet 50 mg PO DAILY 05/09/20 05/12/20 metoprolol succinate 150 mg PO DAILY 05/12/20 05/12/20 prednisone See Rx Instructions .ROUTE .COMPLEX 05/12/20 05/12/20 Allergies Allergy/AdvReac Type Severity Reaction Status Date / Time morphine Allergy Unknown Itching Verified 07/11/20 18:40 pregabalin Allergy Unknown Itching Verified 07/11/20 18:40 Review of Systems Review of Systems: Narrative: CONSTITUTIONAL: Reports generalized weakness and lethargy EYES: Denies visual changes, redness, or discharge. ENT: Denies rhinorrhea, congestion, sore throat, or otalgia. CARDIOVASCULAR: Denies chest pain, palpitations, or edema. RESPIRATORY: Denies cough or dyspnea. GASTROINTESTINAL: Denies abdominal pain, nausea, vomiting, or diarrhea. GENITOURINARY: Denies dysuria or hematuria. SKIN: Denies rash or itching. MUSCULOSKELETAL: Denies back pain, joint pain, or myalgia. NEUROLOGIC: Denies headache, numbness, dizziness, or weakness. PSYCHIATRIC: Denies anxiety or depression. [facility] Past Medical History Medical History A-fib With an ablation and paroxysmal Anxiety Arthritis CAD (coronary artery disease) s/p 3 stents (mid LAD, mid CX, mid RCA) after Non STEMI May 201706/2019: Stent to the distal RCA, POBA PDA Chronic anemia Chronic respiratory failure with hypoxia Chronically on oxygen at 5 L per nasal cannula. Closed intertrochanteric fracture of right hip Treated non operatively October 2019 Congestive heart failure Diastolic with most recent echocardiogram January 2019 demonstrating paradoxical septal motion consistent with right ventricular volume overload or elevated right ventricular end-diastolic pressure, EF 60-65%, mildly increased left ventricular wall thickness, grade 1 diastolic dysfunction, severely reduced right ventricular systolic function, severely enlarged right ventricular chamber, severely enlarged right atrial chamber, [id number] mitral valve regurgitation, trace tricuspid regurgitation, mild pulmonary hypertension with RVSP of 46 COPD (chronic obstructive pulmonary disease) Depression DM2 (diabetes mellitus, type 2) GERD (gastroesophageal reflux disease) Heart attack Heart disease History of kidney stones HTN (hypertension) Hyperlipidemia Hypomagnesemia Irritable bowel Kidney stone 2003 with surgery Obstructive sleep apnea With last sleep study March 2019 recommending auto b
[2020-07-11] MEDS: SODIUM CHLORIDE 0.9% IV 1,000 ML 999 ML IV CONT (19:46)
[2020-07-11 19:52] VITALS: PULSE 123; O2SAT 96
[2020-07-11 20:07] LABS: Alanine Aminotransferase 11 U/L (4-35); Albumin Level 3.7 g/dL (3.5-5.1); Alkaline Phosphatase 95 U/L (38-126); Anion Gap 8 mmol/L (8-16); Aspartate Amino Transferase 21 U/L (14-36); Bilirubin,Total 0.2 mg/dL (0.2-1.3); Blood Urea Nitrogen 25 mg/dL (7-17); Calcium 8.4 mg/dL (8.4-10.2); Carbon Dioxide 28 mmol/L (22-30); Chloride 105 mmol/L (98-107); Estimated CRCL calculation 21 ml/min; Estimated Glomerular Filt Rate 26; Glucose 208 mg/dL (65-105); Potassium 5.2 mmol/L (3.4-5.0); Sodium 141 mmol/L (137-145)
[2020-07-11 20:19] LABS: Hematocrit 28.2 % (37.0-47.0); Hemoglobin 7.9 g/dL (12.0-15.0)
[2020-07-11 21:43] VITALS: BP 158/79; PULSE 94; RESP 18; O2SAT 100
[2020-07-11 22:00] VITALS: BP 164/70; PULSE 99; RESP 18; TEMP 36.2; O2SAT 98
[2020-07-11 22:34] VITALS: BMI 23.3
--- NOTE | 2020-07-11 22:34 | PC.NURSE ---
This patient, Piedad Andrade, was admitted to 3 [facility] Surg Room 302-01 @22:25. Patient/family oriented to hospital policies and general routines including ID bracelet, bed and alarms, visiting hours, pain management, procedures, bathroom and other care routines, personal items, smoking policy, room service/diet, and visiting hours. Information on how to activate the Rapid Response Team has been discussed. Patient/Family are encouraged to report perceived risks to care and to ask questions if they do not understand what they are told or what they should do.
[2020-07-11 23:24] VITALS: O2SAT 98
[2020-07-12] VITALS (42 sets, daily range): BP systolic 106–230; BP diastolic 63–131; PULSE 79–138; RESP 18–27; TEMP 35.7–36.7; O2SAT 91–100
[2020-07-12] MEDS: SODIUM CHLORIDE 0.9% IV 1,000 ML 125 ML IV CONT (01:02)
[2020-07-12 03:00] LABS: Hematocrit 25.2 % (37.0-47.0); Hemoglobin 7.1 g/dL (12.0-15.0)
--- NOTE | 2020-07-12 03:22 | PC.NURSE ---
Patient complaining of feeling short of breath, spot checked her o2 Sat and she was in the 80s on 5L. Increased her 02 to 7L and she is maintaining her 95%, called Dr. Zhou and she ordered a stat chest xray as well as an albuterol neb treatment. -NALINI RN
[2020-07-12] MEDS: ALBUTEROL SULFATE NEB 2.5 MG/3 ML INH 1.25 MG INHALATION (03:33)
--- NOTE | 2020-07-12 04:11 | ECG_ITS ---
Measurements Intervals [place] Rate: 138 P: ID: 0 QRS: -40 QRSD: 118 T: 108 QT: 305 QTc: 462 Interpretive Statements SINUS TACHYCARDIA LEFT AXIS DEVIATION INTRAVENTRICULAR CONDUCTION DELAY CANNOT RULE OUT SEPTAL INFARCT, AGE INDETERMINATE ST-T WAVE ABNORMALITY IN HIGH LATERAL LEADS- CONSIDER ISCHEMIA BASELINE ARTIFACT- I, II, III, AVR, AVL, AVF, V1-V6 ABNORMAL ECG Electronically Signed On 07-12-2020 7:51:27 CDT by Joshua Bennett D.O.
[2020-07-12] MEDS: LABETALOL HCL INJ 100 MG/20 ML VIAL 10 MG IV PUSH (04:23)
[2020-07-12 04:24] LABS: Alveolar/Arterial O2 Gradient 467.7 mmHg; Base Excess ABG -5.1 mEq/l (+/-2.0); Fractional Inspired Oxygen 95 %; HCO3 ABG 24.7 mEq/l (22.0-26.0); Oxygen Content ABG 12.6 %vol (16.0-22.0); Oxygen Saturation ABG 97.5 % (95.0-100.0); Oxyhemoglobin 96.4 % THb (90.0-100.0); PO2 ABG 131.8 mmHg (80.0-100.0); PO2 FiO2 Ratio Arterial Blood 1.39 %; Total Hemoglobin 9.1 g/dL (12.0-18.0)
[2020-07-12] MEDS: MORPHINE SULFATE (*CRX) 2 MG/ML INJ ×2 (04:24)
[2020-07-12] MEDS: LABETALOL HCL INJ 100 MG/20 ML VIAL (04:25)
[2020-07-12] MEDS: FUROSEMIDE INJ 40 MG/4 ML VIAL IV PUSH (04:25)
[2020-07-12 04:26] LABS: PCO2 ABG 76.9 mmHg (35.0-45.0); pH ABG 7.124 (7.350-7.450)
[2020-07-12 04:27] LABS: Device NON-REBREATHER MASK; Modified Allen's Test Unable to perform; Site Drawn RIGHT RADIAL
[2020-07-12] MEDS: methylPREDNISolone SOD SUCC 125 MG VIAL IV PUSH ×2 (04:30→05:03)
--- NOTE | 2020-07-12 04:42 | ECG_ITS ---
Measurements Intervals [place] Rate: 91 P: 50 MN: 158 QRS: -24 QRSD: 107 T: 115 QT: 389 QTc: 481 Interpretive Statements SINUS RHYTHM POSSIBLE LEFT ATRIAL ENLARGEMENT INTRAVENTRICULAR CONDUCTION DELAY DELAYED PRECORDIAL R/S TRANSITION NONSPECIFIC ST & T-WAVE ABNORMALITY- HIGH LATERAL LEADS BASELINE ARTIFACT- V4-V6 BORDERLINE ECG Electronically Signed On 07-12-2020 7:54:34 CDT by Joshua Bennett D.O.
[2020-07-12 04:54] LABS: Glucose Point of Care 223 (65-105)
--- NOTE | 2020-07-12 05:06 | PM.IMHP ---
H&P: HPI History of Present Illness Date/Time: 07/12/20 05:06 Chief Complaint: Fatigue Narrative: This is a 70-year-old female with past medical history significant for atrial fibrillation anticoagulated and rate controlled, Dyslipidemia, osteoporosis, GI bleed, iron deficiency anemia, COPD. Patient initially presented to the emergency room with complaints of fatigue for 2 weeks or so patient had been to her primary care's physician and and labs were drawn she was found to have a hemoglobin of 7.9 she was sent over to emergency room for blood transfusion on in the repeat lab in emergency room patient had a hemoglobin of 7.4. Patient was admitted to regular medical floor and a rapid response was called on her due to shortness of breath patient was found to have a systolic of 230 over diastolic in the 100's, patient also was found to have a pH of 7.2 a PO2 of 130 and a pCO2 of 76 she was placed on BiPAP. An EKG showed heart rate in the 100 and 30s supraventricular tachycardia. Patient has been transferred to IMU. Review of Systems Review of Systems: Narrative: Patient presented to emergency room sent over by her primary care physician for probable blood transfusion after she was found to have a hemoglobin of 7.9 patient had been very fatigued and tired for 2 weeks Constitutional: Constitutional: Denies chills, Reports fatigue, Denies fever(s), Denies malaise and Reports weakness Eyes: Eyes: Denies change in vision ENT: Denies nasal congestion and Denies nasal discharge Cardiovascular: Cardiovascular: Denies leg edema Respiratory: Respiratory: Denies cough and Denies dyspnea Gastrointestinal: Gastrointestinal: Denies abdominal pain, Denies melena, Denies hematochezia and Denies change in bowel habits Genitourinary: Genitourinary: Denies dysuria Musculoskeletal: Musculoskeletal: Denies arthralgias and Denies joint swelling Integumentary/Breasts: Skin/Breast: Denies rash Neurologic: Denies abnormal gait, Denies dizziness and Denies focal weakness Endocrine: Endocrine: Denies no additional endocrine complaints Hematologic/Lymphatic: Hematologic/Lymphatic: Denies no additional hematologic/lymphatic complaints Allergic/Immunologic: Allergic/Immunologic: Denies no additional allergic/immunologic complaints [facility] Past Medical History Medical History A-fib With an ablation and paroxysmal Anxiety Arthritis CAD (coronary artery disease) s/p 3 stents (mid LAD, mid CX, mid RCA) after Non STEMI May 201706/2019: Stent to the distal RCA, POBA PDA Chronic anemia Chronic respiratory failure with hypoxia Chronically on oxygen at 5 L per nasal cannula. Closed intertrochanteric fracture of right hip Treated non operatively October 2019 Congestive heart failure Diastolic with most recent echocardiogram January 2019 demonstrating paradoxical septal motion consistent with right ventricular volume overload or elevated right ventricular end-diastolic pressure, EF 60-65%, mildly increased left ventricular wall thickness, grade 1 diastolic dysfunction, severely reduced right ventricular systolic function, severely enlarged right ventricular chamber, severely enlarged right atrial chamber, [id number] mitral valve regurgitation, trace tricuspid regurgitation, mild pulmonary hypertension with RVSP of 46 COPD (chronic obstructive pulmonary disease) Depression DM2 (diabetes mellitus, type 2) GERD (gastroesophageal reflux disease) Heart attack Heart disease History of kidney stones HTN (hypertension) Hyperlipidemia Hypomagnesemia Irritable bowel Kidney stone 2003 with surgery Obstructive sleep apnea With last sleep study March 2019 recommending auto bilevel with 5 L of oxygen Peripheral neuropathy PSVT (paroxysmal supraventricular tachycardia) Pulmonary nodules Rheumatoid arthritis Subarachnoid hemorrhage from fall in 12/2017 Surgical History Surgical History (Reviewed
--- NOTE | 2020-07-12 05:21 | PC.NURSE ---
This patient, Piedad Andrade, was received from room 302 on 07/12/20 at 0436. Patient/family oriented to unit policies and routines. Report received from TWILA Perez.
--- NOTE | 2020-07-12 05:26 | PC.NURSE ---
Spoke to Isidoro () about patient's change in status and the movement to IMU. He was grateful for the update and asked to be transferred to speak to the staff down there. -NALINI RN
[2020-07-12 06:21] LABS: Alveolar/Arterial O2 Gradient 138.6 mmHg; Base Excess ABG -1.3 mEq/l (+/-2.0); Carboxyhemoglobin 0.3 % THb (0-2.0); Fractional Inspired Oxygen 40 %; HCO3 ABG 25.9 mEq/l (22.0-26.0); Methemoglobin ABG 0.3 %THb (0-1.5); Oxygen Content ABG 10.7 %vol (16.0-22.0); Oxygen Saturation ABG 93.7 % (95.0-100.0); Oxyhemoglobin 92.4 % THb (90.0-100.0); PCO2 ABG 58.6 mmHg (35.0-45.0); PO2 ABG 79.2 mmHg (80.0-100.0); PO2 FiO2 Ratio Arterial Blood 1.98 %; Total Hemoglobin 8.1 g/dL (12.0-18.0)
[2020-07-12 06:22] LABS: Device NON-INVASIVE VENT; Site Drawn RIGHT BRACHIAL; pH ABG 7.264 (7.350-7.450)
[2020-07-12 06:23] LABS: Non-Invasive Expiratory Pressure 8 CMH2O; Non-Invasive Inspiratory Pressure 16 CMH2O; Non-Invasive Vent Rate 20 /MIN
[2020-07-12] MEDS: LEVALBUTEROL NEB 1.25 MG/3 ML 0.63 MG INHALATION ×3 (08:00→20:26)
[2020-07-12] MEDS: FLUTICASONE/UMECLIDIN/VILANTER 100-62.5-25 MCG ELLIPTA 1 PUFF INHALATION (08:06)
[2020-07-12 08:18] LABS: Basophils Percent Auto 0.4 % (0.2-1.2); Eosinophils Absolute Auto 0.6 K/mm3 (0-0.3); Eosinophils Percent Auto 6.7 % (0-4.4); Hemoglobin 7.7 g/dL (12.0-15.0); Immature Granulocyte Absolute 0.08 K/mm3 (0.00-0.031); Lymphocytes Absolute Auto 0.41 K/mm3 (0.9-3.2); Lymphocytes Percent Auto 4.9 % (18.3-44.2); Mean Corpuscular HGB Conc 28.5 g/dl (32-36); Mean Corpuscular Hemoglobin 24.8 pg (26-34); Mean Corpuscular Volume 86.8 fl (80-100); Mean Platelet Volume 10.8 fl (7.4-10.4); Monocytes Absolute Auto 0.2 K/mm3 (0.1-0.6); Monocytes Percent Auto 2.1 % (2.6-8.5); Neutrophils Absolute Auto 7.1 K/mm3 (1.3-6.7); Neutrophils Percent Auto 84.9 % (45.5-73.1); Platelet Count Result 232 k/mm3 (150-375); Red Blood Count 3.11 M/mm3 (4.2-5.4); Red Cell Distribution Width 16.8 % (11.5-14.5); White Blood Count 8.4 K/mm3 (4.5-10.0)
[2020-07-12 08:33] LABS: Alanine Aminotransferase 11 U/L (4-35); Albumin Level 3.7 g/dL (3.5-5.1); Alkaline Phosphatase 86 U/L (38-126); Anion Gap 6 mmol/L (8-16); Aspartate Amino Transferase 20 U/L (14-36); Bilirubin,Total 0.2 mg/dL (0.2-1.3); Blood Urea Nitrogen 26 mg/dL (7-17); CRP 0.6 mg/dL (<1.0); Calcium 8.2 mg/dL (8.4-10.2); Carbon Dioxide 30 mmol/L (22-30); Chloride 106 mmol/L (98-107); Estimated CRCL calculation 21 ml/min; Estimated Glomerular Filt Rate 26; Glucose 221 mg/dL (65-105); Magnesium 1.4 mg/dL (1.6-2.3); Phosphorus 3.9 mg/dL (2.5-4.5); Potassium 4.9 mmol/L (3.4-5.0); Sodium 142 mmol/L (137-145)
[2020-07-12 08:51] LABS: Hypochromasia 1+ (NORMAL); Platelet Estimate Adequate (Adequate)
[2020-07-12 08:52] LABS: Stomatocytes 1+ (NORMAL)
[2020-07-12] MEDS: OXYMETAZOLINE HCL 0.05% NAS 15 ML BTL (*BKC) 2 SPRAY NASAL (10:03)
[2020-07-12] MEDS: THERAPEUTIC MULTIVITAMINS/MINERALS TAB (*BKC) 1 TABLET PO (10:04)
[2020-07-12] MEDS: ATORVASTATIN 20 MG TABLET PO (10:04)
[2020-07-12] MEDS: MAGNESIUM OXIDE 400 MG TABLET PO ×2 (10:05→18:35)
[2020-07-12] MEDS: LOSARTAN POTASSIUM 50 MG TABLET PO (10:05)
[2020-07-12] MEDS: SERTRALINE HCL 50 MG TABLET PO (10:05)
[2020-07-12] MEDS: AMIODARONE HCL 200 MG TABLET 400 MG PO ×2 (10:05→13:35)
--- NOTE | 2020-07-12 13:32 | WPDGICN ---
Assessment and Plan Assessment and plan (1) Acute on chronic blood loss anemia: Code(s): D62 - Acute posthemorrhagic anemia Status: Acute Assessment and Plan: monitor hb and for signs of bleeding egd and colonoscopy tuesday (2) Occult blood in stools: Code(s): R19.5 - Other fecal abnormalities Status: Acute Assessment and Plan: agreeable with scopes continue to monitor (3) Acute and chronic respiratory failure with hypercapnia: Code(s): J96.22 - Acute and chronic respiratory failure with hypercapnia Status: Acute Assessment and Plan: improved after bipap and medical treatment (4) Hypertensive emergency: Code(s): I16.1 - Hypertensive emergency Status: Acute Assessment and Plan: treated and improved (5) Paroxysmal atrial fibrillation: Code(s): I48.0 - Paroxysmal atrial fibrillation Status: Acute Assessment and Plan: eliquis on hold last 2 days (6) Pulmonary hypertension: Code(s): I27.20 - Pulmonary hypertension, unspecified Status: Acute (7) Former smoker: Code(s): Z87.891 - Personal history of nicotine dependence Status: Acute (8) CAD (coronary artery disease): Qualifiers: Coronary Disease-Associated Artery/Lesion type: [place] artery [place] vs. transplanted heart: [place] heart Associated angina: without angina Qualified Code(s): I25.10 - Atherosclerotic heart disease of [place] coronary artery without angina pectoris Code(s): I25.10 - Atherosclerotic heart disease of [place] coronary artery without angina pectoris Status: Acute GI Consult Note Consult date/time: 07/12/20 13:32 Reason for consult: acute on chronic anemia, FOBT+ HPI: Piedad Andrade is a 70 year old female with atrial fibrillation on eliquis, osteoporosis, chronic anemia, COPD and previous history of hip fracture but treated medically on norco at bedtime (denies nsaid's). She is here with fatigue for for 2 weeks, PCP found low hb 7.9 and also had occult blood stool at her doctor office. She was admitted, last night rapid response was called on her due to shortness of breath and also had high BP, now improved, also was on bipap. She noted some dark stools but no obvious GIB. Had colonoscopy 2019 per patient, no egd. Review of Systems Constitutional: Constitutional: Reports fatigue and Reports lethargy Eyes: Eyes: Reports no additional eye complaints ENT: Reports Normal hearing present Cardiovascular: Cardiovascular: Denies chest pain Respiratory: Respiratory: Reports dyspnea Gastrointestinal: Gastrointestinal: Denies nausea and Denies vomiting Genitourinary: Genitourinary: Denies flank pain Comments: dark urine Musculoskeletal: Musculoskeletal: Denies neck pain Integumentary/Breasts: Skin/Breast: Denies dry skin Neurologic: Reports system reviewed and no additional complaints, except as documented Psychiatric: Psychiatric: Reports no additional psychiatric complaints [facility] Past Medical History Medical History (Updated 07/12/20 @ 13:36 by Felix Werner MD) A-fib With an ablation and paroxysmal Acute on chronic blood loss anemia Anxiety Arthritis CAD (coronary artery disease) s/p 3 stents (mid LAD, mid CX, mid RCA) after Non STEMI May 201706/2019: Stent to the distal RCA, POBA PDA Chronic anemia Chronic respiratory failure with hypoxia Chronically on oxygen at 5 L per nasal cannula. Closed intertrochanteric fracture of right hip Treated non operatively October 2019 Congestive heart failure Diastolic with most recent echocardiogram January 2019 demonstrating paradoxical septal motion consistent with right ventricular volume overload or elevated right ventricular end-diastolic pressure, EF 60-65%, mildly increased left ventricular wall thickness, grade 1 diastolic dysfunction, severely reduced right ventricular systolic function, severely enlarged right ventricular oliver
[2020-07-12] MEDS: methylPREDNISolone SOD SUCC 40 MG VIAL IV PUSH ×3 (13:36→23:35)
[2020-07-12 14:57] LABS: Hematocrit 24.5 % (37.0-47.0); Hemoglobin 7.1 g/dL (12.0-15.0)
--- NOTE | 2020-07-12 15:29 | PM.IMPN ---
Progress Note: A&P Assessment and Plan (1) Acute and chronic respiratory failure with hypercapnia: Code(s): J96.22 - Acute and chronic respiratory failure with hypercapnia Status: Acute Assessment and Plan: Patient with chronic respiratory failure on 5L O2 at home with the use of BiPAP at sleep. Overnight after admission, a rapid response was called due to shortness of breath and with BP 230/109. ABG showing 7.12/77/132 on 15L NRB mask. She was started on BiPAP and transferred to IMU; repeat ABG 7.26/59/79. She was given lasix, Morphine and Labetalol. BP improved. EKG showing sinus tachycardia. CXR showing pulmonary vascular congestion and patchy bilateral airspace disease, Unclear if related to markedly elevated BP or related to COPD/JOAQUIN/being off her BiPAP with the BP elevated in response to the respiratory failure. Condition has improved and able to come off the BiPAP this morning. Continue BiPAP with naps and at bed. (2) Acute exacerbation of chronic obstructive pulmonary disease (COPD): Code(s): J44.1 - Chronic obstructive pulmonary disease with (acute) exacerbation Status: Acute Assessment and Plan: Possible COPD exacerbation. Started on Solu-Medrol and Xopenex. Stable on her 5L. Continue Trelegy. (3) Hypertensive emergency: Code(s): I16.1 - Hypertensive emergency Status: Acute Assessment and Plan: As above, unclear if this was the cause of or in response to the respiratory failure. Patient responded to labetalol and BiPAP. Repeat BP dropped to 140/68 and dropped to 106/68. BP higher now. Continue Losartan monotherapy for now. Adjust anti-HTN medications as needed. (4) DANIELLE (acute kidney injury): Code(s): N17.9 - Acute kidney failure, unspecified Status: Acute Assessment and Plan: Baseline Cr runs about 0.9-1.1 range. Cr 1.5 on 07/09/20 and 1.9 on admission here. No contrast exposure from here. Possibly ATN from the anemia. Will check renal US and urine studies. Stop metformin. (5) Acute on chronic blood loss anemia: Code(s): D62 - Acute posthemorrhagic anemia Status: Acute Assessment and Plan: Hemoglobin normally runs in the 9-10 range recently. Patient has been complaining of weakness and fatigue. Hemoglobin noted to be 7.9 and transfusion was arranged. She developed rectal bleeding and as such was sent to the hospital for evaluation. Hemoglobin has dropped to 7.1. Given her history, we will transfuse 1 unit packed red blood cells this evening. Will give Lasix if she develops increasing SOB. GI consulted and appreciate his input. EGD possibly on Tuesday. Continue to follow serial H&H. Start Protonix. (6) SVT (supraventricular tachycardia): Code(s): I47.1 - Supraventricular tachycardia Status: Acute Assessment and Plan: During the rapid response, there was concern that the patient had SVT. EKG however more consistent with sinus tachycardia. Patient's HR improved with the labetolol. Patient was continued on her amiodarone but the dose was 400mg TID. Old records obtained and it appears she is on 200mg daily so this was adjusted. Don't see evidence of SVT here. She has hx of SVT. Continue correct home Amio dose. Contineu tele. (7) JOAQUIN (obstructive sleep apnea): Code(s): G47.33 - Obstructive sleep apnea (adult) (pediatric) Status: Chronic Assessment and Plan: As above. Patient has been weaned to nasal cannula now. Continue BiPAP at night and with naps. (8) CHF (congestive heart failure): Qualifiers: Heart failure chronicity: acute on chronic Heart failure type: unspecified Qualified Code(s): I50.9 - Heart failure, unspecified Code(s): I50.9 - Heart failure, unspecified Status: Chronic Assessment and Plan: Patietn with diastolic CHF with most recent echocardiogram January 2019 demonstrating paradoxical septal mo
[2020-07-12] MEDS: HYDROcodone/acetaminophen (*CRX) 5-325 MG TABLET 1 TAB PO (21:36)
[2020-07-12] MEDS: PANTOPRAZOLE SODIUM IV 40 MG VIAL IV PUSH (21:37)
[2020-07-12 22:02] LABS: Add Urine Microscopic? YES; Appearance Urine Cloudy (Clear); Bacteria Urine 4+ /hpf; Bilirubin Urine Negative (Negative); Blood Urine 3+ (Negative); Color Urine Yellow (Yellow); Glucose Urine UA 1+ mg/dL (Negative); Ketones Urine Negative (Negative); Leukocyte Esterase Ur 2+ LEU/UL (Negative); Mucus Urine Rare /lpf; Nitrate Urine Positive (Negative); Protein Urine 1+ mg/dL (Negative); RBC Urine 21-50 /hpf (0-2); Specific Grav Ur 1.016 (1.001-1.035); Urobilinogen Urine Negative mg/dL (<2.0); WBC Urine 51-75 /hpf
[2020-07-12 22:07] LABS: Creatinine Urine 56.9 mg/dL
[2020-07-12 22:19] LABS: Sodium Urine Random 103 meq/L
[2020-07-12 22:57] LABS: Eosinophil Urine None Seen % (None Seen)
[2020-07-13] VITALS (29 sets, daily range): BP systolic 139–182; BP diastolic 67–96; PULSE 20–118; RESP 20–103; TEMP 36.5–36.8; O2SAT 94–99
[2020-07-13 01:11] LABS: Hematocrit 29.1 % (37.0-47.0); Hemoglobin 8.6 g/dL (12.0-15.0)
[2020-07-13] MEDS: LEVALBUTEROL NEB 1.25 MG/3 ML 0.63 MG INHALATION ×4 (02:35→20:14)
[2020-07-13] MEDS: ALENDRONATE SODIUM 70 MG TABLET PO (05:24)
[2020-07-13] MEDS: methylPREDNISolone SOD SUCC 40 MG VIAL IV PUSH ×3 (05:25→17:49)
[2020-07-13] MEDS: ACETAMINOPHEN 325 MG TABLET 650 MG PO ×2 (05:34→18:42)
[2020-07-13 05:51] LABS: Basophils Percent Auto 0.2 % (0.2-1.2); Eosinophils Percent Auto 0.2 % (0-4.4); Hematocrit 29.3 % (37.0-47.0); Hemoglobin 8.9 g/dL (12.0-15.0); Immature Granulocyte Absolute 0.07 K/mm3 (0.00-0.031); Immature Granulocyte Percent A 1.1 % (0-0.5); Lymphocytes Absolute Auto 0.44 K/mm3 (0.9-3.2); Lymphocytes Percent Auto 6.8 % (18.3-44.2); Mean Corpuscular HGB Conc 30.4 g/dl (32-36); Mean Corpuscular Hemoglobin 24.7 pg (26-34); Mean Corpuscular Volume 81.2 fl (80-100); Mean Platelet Volume 10.6 fl (7.4-10.4); Monocytes Absolute Auto 0.2 K/mm3 (0.1-0.6); Monocytes Percent Auto 3.4 % (2.6-8.5); Neutrophils Absolute Auto 5.7 K/mm3 (1.3-6.7); Neutrophils Percent Auto 88.3 % (45.5-73.1); Platelet Count Result 215 k/mm3 (150-375); Red Blood Count 3.61 M/mm3 (4.2-5.4); White Blood Count 6.5 K/mm3 (4.5-10.0)
[2020-07-13 05:59] LABS: Alanine Aminotransferase 11 U/L (4-35); Albumin Level 3.7 g/dL (3.5-5.1); Alkaline Phosphatase 76 U/L (38-126); Anion Gap 5 mmol/L (8-16); Aspartate Amino Transferase 21 U/L (14-36); Bilirubin,Total 0.4 mg/dL (0.2-1.3); Blood Urea Nitrogen 32 mg/dL (7-17); Calcium 8.4 mg/dL (8.4-10.2); Carbon Dioxide 29 mmol/L (22-30); Chloride 103 mmol/L (98-107); Estimated CRCL calculation 27 ml/min; Estimated Glomerular Filt Rate 34; Glucose 222 mg/dL (65-105); Magnesium 1.6 mg/dL (1.6-2.3); Phosphorus 3.5 mg/dL (2.5-4.5); Potassium 4.8 mmol/L (3.4-5.0); Sodium 137 mmol/L (137-145)
[2020-07-13 06:10] LABS: NT Pro B Type Natriuretic Pept 6210 pg/mL (5-100)
[2020-07-13] MEDS: FLUTICASONE/UMECLIDIN/VILANTER 100-62.5-25 MCG ELLIPTA 1 PUFF INHALATION (08:13)
[2020-07-13] MEDS: THERAPEUTIC MULTIVITAMINS/MINERALS TAB (*BKC) 1 TABLET PO (08:27)
[2020-07-13] MEDS: AMIODARONE HCL 200 MG TABLET PO (08:27)
[2020-07-13] MEDS: SERTRALINE HCL 50 MG TABLET PO (08:28)
[2020-07-13] MEDS: MAGNESIUM OXIDE 400 MG TABLET PO (08:28)
[2020-07-13] MEDS: LOSARTAN POTASSIUM 50 MG TABLET PO (08:28)
[2020-07-13] MEDS: PANTOPRAZOLE SODIUM IV 40 MG VIAL IV PUSH ×2 (08:29→20:38)
[2020-07-13] MEDS: ATORVASTATIN 10 MG TABLET PO (08:29)
[2020-07-13] MEDS: ONDANSETRON INJ 4 MG/2 ML VIAL IV PUSH (09:49)
--- NOTE | 2020-07-13 11:07 | WPDGIPROGNO ---
Progress Note: A&P Assessment and Plan (1) Acute on chronic blood loss anemia: Code(s): D62 - Acute posthemorrhagic anemia Status: Acute Assessment and Plan: hb stable will do egd and colonoscopy tomorrow to check if GI blood loss, eliquis on hold (2) Occult blood in stools: Code(s): R19.5 - Other fecal abnormalities Status: Acute Assessment and Plan: found at her doctor's office scopes tomorrow (3) Acute and chronic respiratory failure with hypercapnia: Code(s): J96.22 - Acute and chronic respiratory failure with hypercapnia Status: Acute Assessment and Plan: on bipap at bedtime and oxygen also cardiology on board BP better, also managed for CHF and Aflutter (4) Hypertensive emergency: Code(s): I16.1 - Hypertensive emergency Status: Acute (5) Atrial flutter with rapid ventricular response: Code(s): I48.92 - Unspecified atrial flutter Status: Acute Subjective Date/time seen: 07/13/20 11:07 Interval history: no gib, she did not have the best night because wearing bipap machine (she is planning to bring hers from home) Review of Systems Review of Systems: All systems reviewed & are unremarkable except as noted in HPI and below Exam Const: General: comfortable and no acute distress Other: on oxygen HENMT: General nose exam: Normal nares present Eyes: General: appearance normal, both eyes and all related structures Neck: Neck: supple Resp: Auscultation: clear to auscultation bilaterally Cardio: Rate: regular rate GI: Inspection: non-distended GI Palp: Yes Soft to palpation and No Tenderness to palpation present (GI) Auscultation: normal bowel sounds Skin: General skin exam: normal color Neuro: Speech: normal speech Motor exam (neuro): Normal motor muscle tone present throughout Extrem: General: normal to inspection Psych: Mental Status: mental status grossly normal Objective Data Vital Signs Vital Signs: Vital Signs - 24 hr 07/12/20 12:00 07/12/20 12:27 07/12/20 13:35 Temperature 97.8 F Pulse Rate 102 H 102 H 104 H Respiratory Rate 22 H Blood Pressure 138/63 Pulse Oximetry 96 98 07/12/20 14:00 07/12/20 14:25 07/12/20 14:39 Temperature Pulse Rate 105 H 103 H 104 H Respiratory Rate 20 20 Blood Pressure Pulse Oximetry 07/12/20 15:20 07/12/20 16:00 07/12/20 18:00 Temperature 97.8 F Pulse Rate 104 H 104 H 98 Respiratory Rate 20 Blood Pressure 171/80 H Pulse Oximetry 98 100 07/12/20 18:53 07/12/20 19:09 07/12/20 20:00 Temperature 98.1 F 98.1 F Pulse Rate 98 98 99 Respiratory Rate 22 H 20 Blood Pressure 142/73 H 148/77 H Pulse Oximetry 98 98 99 07/12/20 20:09 07/12/20 20:26 07/12/20 20:29 Temperature 98.1 F Pulse Rate 98 98 98 Respiratory Rate 18 20 Blood Pressure 146/81 H Pulse Oximetry 99 97 07/12/20 20:35 07/12/20 21:09 07/12/20 21:58 Temperature 98 F 96.2 F L Pulse Rate 111 H 102 H 98 Respiratory Rate 20 18 20 Blood Pressure 162/90 H 162/88 H Pulse Oximetry 100 96 07/12/20 22:00 07/12/20 22:50 07/12/20 23:09 Temperature 97.2 F L Pulse Rate 98 79 94 Respiratory Rate 20 21 H Blood Pressure 161/93 H Pulse Oximetry 96 98 07/13/20 00:00 07/13/20 02:00 07/13/20 02:35 Temperature Pulse Rate 97 81 87 Respiratory Rate 20 Blood Pressure Pulse Oximetry 98 07/13/20 02:36 07/13/20 02:45 07/13/20 03:40 Temperature 97.9 F Pulse Rate 87 81 95 Respiratory Rate 20 20 20 Blood Pressure 152/82 H Pulse Oximetry 98 99 07/13/20 04:00 07/13/20 06:00 07/13/20 07:59 Temperature 98 F Pulse Rate 94 100 105 H Respiratory Rate 20 Blood Pressure 140/67 Pulse Oximetry 99 95 07/13/20 08:00 07/13/20 08:14 07/13/20 08:25 Temperature Pulse Rate 103 H 108 H 109 H Respiratory Rate 20 20 Blood Pressure Pulse Oximetry 96 96 07/13/20 08:27 07/13/20 10:00 Temperature Pulse Rate 109 H 100 R
--- NOTE | 2020-07-13 14:28 | PC.NURSE ---
This patient's O2 was stating in the low to mid 70's on 5L. This nurse encouraged the patient to deep breath and sat in an upright position. O2 was still low. Oxygen raised till patient ended up on 15LHFNC and 10L NRB. IMU respiratory was called and now the patient was titrated down back down to 5LHFNC. Dr. Díaz notified of the incident. No new orders.
--- NOTE | 2020-07-13 17:40 | PM.IMPN ---
Progress Note: A&P Assessment and Plan (1) Acute and chronic respiratory failure with hypercapnia: Code(s): J96.22 - Acute and chronic respiratory failure with hypercapnia Status: Acute Assessment and Plan: Patient with chronic respiratory failure on 5L O2 at home with the use of BiPAP at sleep. Overnight after admission, a rapid response was called due to shortness of breath and with BP 230/109. ABG showing 7.12/77/132 on 15L NRB mask. She was started on BiPAP and transferred to IMU; repeat ABG 7./59/79. She was given lasix, Morphine and Labetalol. BP improved. EKG showing sinus tachycardia. CXR showing pulmonary vascular congestion and patchy bilateral airspace disease, Unclear if related to markedly elevated BP or related to COPD/JOAQUIN/being off her BiPAP with the BP elevated in response to the respiratory failure. Condition improved and able to come off the BiPAP and back to her 5L. She had another episode of increasing SOB related to cough jag. CXR this morning again showing CHF but could be related to ILD. She improved quickly. Lasix IV once. Thick sputum so will add Pulmozyme. Continue O2 at 5L with BiPAP with naps and at bed. (2) Acute exacerbation of chronic obstructive pulmonary disease (COPD): Code(s): J44.1 - Chronic obstructive pulmonary disease with (acute) exacerbation Status: Acute Assessment and Plan: Possible COPD exacerbation. Started on Solu-Medrol and Xopenex. Stable on her 5L. Continue Trelegy. Wean Solu-medrol. (3) Hypertensive emergency: Code(s): I16.1 - Hypertensive emergency Status: Acute Assessment and Plan: As above, unclear if this was the cause of or in response to the respiratory failure. Patient responded to labetalol and BiPAP. SBP now running 130-160 range. Continue Losartan monotherapy for now. Consider adding beta samir. Adjust anti-HTN medications as needed. (4) DANIELLE (acute kidney injury): Code(s): N17.9 - Acute kidney failure, unspecified Status: Acute Assessment and Plan: Baseline Cr runs about 0.9-1.1 range. Cr 1.5 on 07/09/20 and 1.9 on admission here. Renal US showing mild right renal atrophy and mild echogenic kidneys consistent with medical renal disease. No contrast exposure from here. Possibly ATN from the anemia. Metformin stopped. Cr better today at 1.5. Follow. (5) Acute on chronic blood loss anemia: Code(s): D62 - Acute posthemorrhagic anemia Status: Acute Assessment and Plan: Hemoglobin normally runs in the 9-10 range recently. Patient has been complaining of weakness and fatigue. Hemoglobin noted to be 7.9 and transfusion was arranged. She developed rectal bleeding and as such was sent to the hospital for evaluation. Hemoglobin has dropped to 7.1 and she was transfused 1 unit packed red blood cells 07/12. Hgb better at 8.9 now. GI consulted with plans for colonoscopy/EGD in the morning. Continue to follow H&H. Continue Protonix. (6) SVT (supraventricular tachycardia): Code(s): I47.1 - Supraventricular tachycardia Status: Acute Assessment and Plan: During the rapid response, there was concern that the patient had SVT. EKG however more consistent with sinus tachycardia. Patient's HR improved with the labetolol. Patient was continued on her amiodarone but the dose was 400mg TID. Old records obtained and it appears she is on 200mg daily so this was adjusted. No evidence of SVT here. She has hx of SVT. Continue correct home Amio dose. Contineuetele. (7) JOAQUIN (obstructive sleep apnea): Code(s): G47.33 - Obstructive sleep apnea (adult) (pediatric) Status: Chronic Assessment and Plan: As above. Patient has been weaned to nasal cannula now. Continue BiPAP at night and with naps. (8) CHF (congestive heart failure): Qualifiers: Heart failure chronicity: acute on chronic Heart failure
[2020-07-13] MEDS: ROFLUMILAST 500 MCG TABLET PO (17:48)
[2020-07-13] MEDS: polyethylene glycoL 3350 238 GM BOTTLE PO (17:49)
[2020-07-13] MEDS: BISACODYL 5 MG TABLET EC 20 MG PO (17:55)
[2020-07-13] MEDS: FUROSEMIDE INJ 40 MG/4 ML VIAL IV PUSH (18:38)
[2020-07-13 19:54] LABS: Hematocrit 32.2 % (37.0-47.0); Hemoglobin 9.5 g/dL (12.0-15.0)
[2020-07-13] MEDS: DORNASE ALFA INH SOLN 1 MG/ML 2.5 ML AMP 2.5 MG INHALATION (20:15)
[2020-07-13 20:32] LABS: Glucose Point of Care 395 (65-105)
[2020-07-13] MEDS: HYDROcodone/acetaminophen (*CRX) 5-325 MG TABLET 1 TAB PO (22:17)
[2020-07-14] VITALS (27 sets, daily range): BP systolic 111–176; BP diastolic 62–85; PULSE 84–112; RESP 15–20; TEMP 36.1–36.4; O2SAT 91–100
[2020-07-14] MEDS: LEVALBUTEROL NEB 1.25 MG/3 ML 0.63 MG INHALATION ×3 (02:27→20:51)
[2020-07-14 05:23] LABS: Hematocrit 30.1 % (37.0-47.0); Hemoglobin 8.9 g/dL (12.0-15.0); Mean Corpuscular HGB Conc 29.6 g/dl (32-36); Mean Corpuscular Hemoglobin 24.3 pg (26-34); Mean Corpuscular Volume 82.2 fl (80-100); Mean Platelet Volume 10.5 fl (7.4-10.4); Platelet Count Result 210 k/mm3 (150-375); Red Blood Count 3.66 M/mm3 (4.2-5.4); Red Cell Distribution Width 16.1 % (11.5-14.5); White Blood Count 6.8 K/mm3 (4.5-10.0)
[2020-07-14] MEDS: MAGNESIUM CITRATE 300 ML BTL PO (05:34)
[2020-07-14 05:38] LABS: Albumin Level 3.6 g/dL (3.5-5.1); Anion Gap 6 mmol/L (8-16); Blood Urea Nitrogen 35 mg/dL (7-17); Calcium 8.4 mg/dL (8.4-10.2); Carbon Dioxide 33 mmol/L (22-30); Chloride 99 mmol/L (98-107); Estimated CRCL calculation 24 ml/min; Estimated Glomerular Filt Rate 30; Glucose 282 mg/dL (65-105); Magnesium 1.7 mg/dL (1.6-2.3); Potassium 5.2 mmol/L (3.4-5.0); Sodium 138 mmol/L (137-145)
[2020-07-14] MEDS: methylPREDNISolone SOD SUCC 40 MG VIAL IV PUSH (06:49)
[2020-07-14] MEDS: DORNASE ALFA INH SOLN 1 MG/ML 2.5 ML AMP 2.5 MG INHALATION ×2 (07:53→20:51)
[2020-07-14] MEDS: FLUTICASONE/UMECLIDIN/VILANTER 100-62.5-25 MCG ELLIPTA 1 PUFF INHALATION (07:53)
[2020-07-14 08:30] LABS: Glucose Point of Care 209 (65-105)
[2020-07-14] MEDS: PANTOPRAZOLE SODIUM IV 40 MG VIAL IV PUSH (09:06)
[2020-07-14] MEDS: AMIODARONE HCL 200 MG TABLET PO (09:07)
[2020-07-14] MEDS: LOSARTAN POTASSIUM 50 MG TABLET PO (09:07)
[2020-07-14] MEDS: SERTRALINE HCL 50 MG TABLET PO (09:07)
[2020-07-14] MEDS: ACETAMINOPHEN 325 MG TABLET 650 MG PO (09:18)
--- NOTE | 2020-07-14 10:41 | PM.IMPN ---
Progress Note: A&P Assessment and Plan (1) Acute and chronic respiratory failure with hypercapnia: Code(s): J96.22 - Acute and chronic respiratory failure with hypercapnia Status: Acute Assessment and Plan: Patient with chronic respiratory failure on 5L O2 at home with the use of BiPAP at sleep. Overnight after admission, a rapid response was called due to shortness of breath and with BP 230/109. ABG showing 7.12/77/132 on 15L NRB mask. She was started on BiPAP and transferred to IMU; repeat ABG 7./59/79. She was given lasix, Morphine and Labetalol. BP improved. EKG showing sinus tachycardia. CXR showing pulmonary vascular congestion and patchy bilateral airspace disease, Unclear if related to markedly elevated BP or related to COPD/JOAQUIN/being off her BiPAP with the BP elevated in response to the respiratory failure. Condition improved and able to come off the BiPAP and back to her 5L. She had another episode of increasing SOB related to cough jag on 07/13. CXR that morning showing CHF but could be related to ILD. She improved quickly. Lasix IV once. Thick sputum so Pulmozyme added. Today, patietn feels better. Cough looser. Tolearating BiPAP. Continue O2 at 5L with BiPAP with naps and at bed. (2) Acute exacerbation of chronic obstructive pulmonary disease (COPD): Code(s): J44.1 - Chronic obstructive pulmonary disease with (acute) exacerbation Status: Acute Assessment and Plan: Possible COPD exacerbation. Started on Solu-Medrol and Xopenex. Stable on her 5L. Continue Trelegy. Wean off Solu-medrol. Resume home Prednisone (3) Hypertensive emergency: Code(s): I16.1 - Hypertensive emergency Status: Acute Assessment and Plan: As above, unclear if this was the cause of or in response to the respiratory failure. Patient responded to labetalol and BiPAP. SBP now running 130-180 range. Could be related to the steroids. Continue Losartan monotherapy for now. Adjust anti-HTN medications as needed. Stop steroids. (4) DANIELLE (acute kidney injury): Code(s): N17.9 - Acute kidney failure, unspecified Status: Acute Assessment and Plan: Baseline Cr runs about 0.9-1.1 range. Cr 1.5 on 07/09/20 and 1.9 on admission here. Renal US showing mild right renal atrophy and mild echogenic kidneys consistent with medical renal disease. No contrast exposure from here. Possibly ATN from the anemia. Metformin stopped. Cr better at 1.5 yesterday but now 1.7 today possibly from the Lasix. Possibly new baseline. Follow. (5) Acute on chronic blood loss anemia: Code(s): D62 - Acute posthemorrhagic anemia Status: Acute Assessment and Plan: Hemoglobin normally runs in the 9-10 range recently. Patient has been complaining of weakness and fatigue. Hemoglobin noted to be 7.9 and transfusion was arranged as outpatient. She developed rectal bleeding and as such was sent to the hospital for evaluation. Hemoglobin dropped to 7.1 and she was transfused 1 unit packed red blood cells 07/12. Hgb better at 8.9 and stable. GI consulted with plans for colonoscopy/EGD. Continue to follow H&H. Continue Protonix. EGD showing normal esophagus and duodenum. Mild gastritis noted. [place] showing transverse colon polyps that were removed and a few medium sized internal hemorrhoids. Okay to resume anti-coagulation per GI note. (6) SVT (supraventricular tachycardia): Code(s): I47.1 - Supraventricular tachycardia Status: Acute Assessment and Plan: During the rapid response, there was concern that the patient had SVT. She has hx of SVT. EKG however more consistent with sinus tachycardia. Patient's HR improved with the labetolol. Patient was continued on her amiodarone but the dose was 400mg TID. Old records obtained and it appears she is on 200mg daily so this was adjusted. No evidence of SVT here. Continue correct home Amio dose. Dajuan t
[2020-07-14 12:20] LABS: Glucose Point of Care 177 (65-105)
--- NOTE | 2020-07-14 12:46 | PC.NURSE ---
Patient to GI lab via stretcher. Report given to TWILA Rob.
[2020-07-14] MEDS: LACTATED RINGERS 1,000 ML 150 ML IV CONT (13:00)
--- NOTE | 2020-07-14 14:04 | PM.PROC ---
Procedure Note - Detailed Date of procedure: 07/14/20 Pre-op diagnosis: Anemia Procedure performed: egd Description of procedure: Indications: Anemia Description of Procedure: Informed consent was obtained with the risks, benefits, and alternatives to GI endoscopy and sedation explained, including but not limited to: infection, bleeding, aspiration, perforation, adverse medication reaction, missed diagnosis, and missed lesions. The patient verbalized understanding and signed the informed consent form to proceed with the GI endoscopy and sedation.No contraindications were noted on physical exam.Patient re-examined and no interval changes noted from preoperative history and physical. After the patient was rolled into the procedure room, two methods of identification were used to identify the patient and the procedure to be performed prior to the procedure. Immediately prior to sedation for endoscopy, the patient's ASA Classification was Class IV: severe systemic disease that is a constant threat to life. Anesthesia was administered by anesthesia service. The patient was placed in the left lateral decubitus position.The instrument was inserted into the mouth and then advanced to the second part of the duodenum.The patient tolerated the procedure well.The oxygen saturation and skin color were normal. Upon discharge from the endoscopy suite, the patient will be recovered per established procedures and protocols. Findings: Normal esophagus, no esophagitis, no varices. A small hiatal hernia was found at the GE junction. The hiatal hernia appeared at a depth of 35 cm to 36 cm from the incisors. Moderate gastritis was seen in the body of the stomach. The gastritis had moderate erythematous and erosive changes. There was no mucosal bleeding. Multiple biopsies were taken. The bulb and second portion of duodenum was normal with no ulcers or masses. Endoscopic Diagnosis: Reflux Esophagitis (K21.0) Hiatal Hernia (K44.9) Gastritis (K29.70) Suggested Billing Codes: Esophagogastroduodenoscopy with biopsy, single or multiple (21846) Recommendations: Surgeon: Felix Werner MD
--- NOTE | 2020-07-14 14:09 | PCOTNOTE ---
Attempted OT evaluation, but unable to complete at this time as patient gone for an EGD and colonoscopy. RN unsure of when patient will return to room. Will continue to follow.
--- NOTE | 2020-07-14 15:35 | PCPTNOTE ---
Attempted PT evaluation, but unable to complete at this time as patient gone for an EGD and colonoscopy. Will follow. LLUVIA FloresT
[2020-07-14 16:29] LABS: Glucose Point of Care 124 (65-105)
[2020-07-14] MEDS: MAGNESIUM OXIDE 400 MG TABLET PO (17:09)
[2020-07-14] MEDS: ATORVASTATIN 10 MG TABLET PO (17:09)
[2020-07-14] MEDS: ROFLUMILAST 500 MCG TABLET PO (17:09)
[2020-07-14] MEDS: THERAPEUTIC MULTIVITAMINS/MINERALS TAB (*BKC) 1 TABLET PO (17:09)
[2020-07-14] MEDS: APIXABAN 5 MG TABLET PO (20:08)
[2020-07-14] MEDS: HYDROcodone/acetaminophen (*CRX) 5-325 MG TABLET 1 TAB PO (20:08)
[2020-07-14 20:23] LABS: Glucose Point of Care 234 (65-105)
[2020-07-15] VITALS (16 sets, daily range): BP systolic 140–167; BP diastolic 75–86; PULSE 72–107; RESP 16–20; TEMP 36.4; O2SAT 91–99
[2020-07-15] MEDS: LEVALBUTEROL NEB 1.25 MG/3 ML 0.63 MG INHALATION ×2 (01:48→09:20)
[2020-07-15 05:20] LABS: Hematocrit 30.9 % (37.0-47.0); Mean Corpuscular HGB Conc 29.1 g/dl (32-36); Mean Corpuscular Hemoglobin 24.5 pg (26-34); Mean Platelet Volume 11.1 fl (7.4-10.4); Platelet Count Result 195 k/mm3 (150-375); Red Blood Count 3.68 M/mm3 (4.2-5.4); Red Cell Distribution Width 16.3 % (11.5-14.5); White Blood Count 7.2 K/mm3 (4.5-10.0)
[2020-07-15 05:30] LABS: Potassium 3.8 mmol/L (3.4-5.0)
[2020-07-15 05:34] LABS: Anion Gap 1 mmol/L (8-16); Blood Urea Nitrogen 33 mg/dL (7-17); Carbon Dioxide 34 mmol/L (22-30); Chloride 101 mmol/L (98-107); Estimated CRCL calculation 33 ml/min; Estimated Glomerular Filt Rate 44; Glucose 169 mg/dL (65-105); Magnesium 2.9 mg/dL (1.6-2.3); Sodium 136 mmol/L (137-145)
[2020-07-15 08:00] LABS: Glucose Point of Care 149 (65-105)
--- NOTE | 2020-07-15 08:54 | WPDANESPN ---
Anes - Prog Note Post-Op Date/Time: 07/15/20 08:54 Cardiovascular status: normal Respiratory status: normal Airway patency: baseline Mental status: baseline Post-Op hydration status: normal Vital Signs: Last Vital Signs Temp 36.4 C 07/15/20 08:00 Pulse 93 07/15/20 08:00 Resp 16 07/15/20 08:00 BP 140/86 07/15/20 08:00 Pulse Ox 99 07/15/20 08:00 Pain Score (VAS): 0 I/O: Intake & Output 07/14/20 07/15/20 07/15/20 23:59 07:59 15:59 Intake Total 0 Output Total 550 Balance 0 -550 Laboratory Tests 07/15/20 04:32 07/15/20 04:32 07/14/20 07/14/20 07/14/20 11:44 15:51 20:21 WBC RBC Hgb Hct MCV MCH MCHC RDW Plt Count MPV Sodium Potassium Chloride Carbon Dioxide Anion Gap BUN Creatinine Estim Creat Clear Calc Estimated GFR Glucose POC Capillary Glucose 177 H 124 H 234 H Calcium Magnesium 07/15/20 07/15/20 07/15/20 04:32 04:32 07:22 WBC 7.2 RBC 3.68 L Hgb 9.0 L Hct 30.9 L MCV 84.0 MCH 24.5 L MCHC 29.1 L RDW 16.3 H Plt Count 195 MPV 11.1 H Sodium 136 L Potassium 3.8 Chloride 101 Carbon Dioxide 34 H Anion Gap 1 L BUN 33 H Creatinine 1.20 H Estim Creat Clear Calc 33 Estimated GFR 44 L Glucose 169 H POC Capillary Glucose 149 H Calcium 8.0 L Magnesium 2.9 H Microbiology 07/12/20 21:45 Urine Catheterized Urine Culture - Preliminary Post-procedural complaints: none Patient Feedback: Patient satisfied with anesthetic care.
[2020-07-15] MEDS: DORNASE ALFA INH SOLN 1 MG/ML 2.5 ML AMP 2.5 MG INHALATION (09:20)
[2020-07-15] MEDS: FLUTICASONE/UMECLIDIN/VILANTER 100-62.5-25 MCG ELLIPTA 1 PUFF INHALATION (09:21)
[2020-07-15] MEDS: ROFLUMILAST 500 MCG TABLET PO (09:24)
[2020-07-15] MEDS: SERTRALINE HCL 50 MG TABLET PO (09:24)
[2020-07-15] MEDS: LOSARTAN POTASSIUM 50 MG TABLET PO (09:24)
[2020-07-15] MEDS: predniSONE 10 MG TABLET PO (09:24)
[2020-07-15] MEDS: MAGNESIUM OXIDE 400 MG TABLET PO (09:24)
[2020-07-15] MEDS: FUROSEMIDE 20 MG TABLET PO (09:25)
[2020-07-15] MEDS: PANTOPRAZOLE 40 MG TABLET PO (09:25)
[2020-07-15] MEDS: AMIODARONE HCL 200 MG TABLET PO (09:25)
[2020-07-15] MEDS: THERAPEUTIC MULTIVITAMINS/MINERALS TAB (*BKC) 1 TABLET PO (09:25)
[2020-07-15] MEDS: ASPIRIN 81 MG CHEWABLE TABLET PO (09:25)
[2020-07-15] MEDS: APIXABAN 5 MG TABLET PO (09:25)
[2020-07-15] MEDS: ATORVASTATIN 10 MG TABLET PO (09:25)
[2020-07-15 11:12] LABS: Glucose Point of Care 189 (65-105)
--- NOTE | 2020-07-15 13:44 | PM.DS ---
DS: Admitting Diagnosis Admitting Diagnosis Admitting Diagnosis: Anemia and developed respiratory failure after admissin DS: Discharge Diagnosis Discharge Diagnosis (1) Acute and chronic respiratory failure with hypercapnia: Code(s): J96.22 - Acute and chronic respiratory failure with hypercapnia Status: Acute Assessment and Plan: Patient with chronic respiratory failure on 5L O2 at home with the use of BiPAP at sleep. Overnight after admission, a rapid response was called due to shortness of breath and with BP 230/109. ABG showed 7.12/77/132 on 15L NRB mask. She was started on BiPAP and transferred to IMU; repeat ABG 7.26/59/79. She was given Lasix, Morphine and Labetalol. BP and Respiratory status improved. EKG showing sinus tachycardia. CXR showing pulmonary vascular congestion and patchy bilateral airspace disease. Unclear if related to markedly elevated BP or related to COPD/JOAQUIN/being off her BiPAP with the BP elevated in response to the respiratory failure. Condition improved and able to come off the BiPAP and back to her 5L. She had another episode of increasing SOB related to cough jag on 07/13. CXR that morning showing CHF but could be related to ILD. She improved quickly. She was given Lasix IV intermittently. Thick sputum so Pulmozyme added. Patient did well and actually was decreased to 4L in the GI lab and remained on 4L since her procedures. The patietn feels well today. She is asking for discharge today. She slept well. Up walking to the bathroom. No CP. Her secretions thinner. (2) Acute exacerbation of chronic obstructive pulmonary disease (COPD): Code(s): J44.1 - Chronic obstructive pulmonary disease with (acute) exacerbation Status: Acute Assessment and Plan: Possible COPD exacerbation. Started on Solu-Medrol and Xopenex. We continued her Trelegy. She had improvement and was able to be weaned off the Solu-medrol. (3) Hypertensive emergency: Code(s): I16.1 - Hypertensive emergency Status: Acute Assessment and Plan: As above, unclear if this was the cause of or in response to the respiratory failure. Patient responded to labetalol and BiPAP. SBP now running 140-170 range. Could be related to the steroids. Continue Losartan monotherapy for now. Defer to PCP to adjust anti-HTN medications as needed. (4) DANIELLE (acute kidney injury): Code(s): N17.9 - Acute kidney failure, unspecified Status: Acute Assessment and Plan: Baseline Cr runs about 0.9-1.1 range. Cr 1.5 on 07/09/20 and 1.9 on admission here. Renal US showing mild right renal atrophy and mild echogenic kidneys consistent with medical renal disease. No contrast exposure from here. Possibly ATN from the anemia. Metformin stopped. Cr better at 1.2 today. Repeat as outpatient (5) Acute on chronic blood loss anemia: Code(s): D62 - Acute posthemorrhagic anemia Status: Acute Assessment and Plan: Hemoglobin normally runs in the 9-10 range recently. Patient has been complaining of weakness and fatigue. Hemoglobin noted to be 7.9 and transfusion was arranged as outpatient. She developed rectal bleeding and as such was sent to the hospital for evaluation. Hemoglobin dropped to 7.1 and she was transfused 1 unit packed red blood cells 07/12. Hgb better at 8.9 and stable. GI consulted and patient underwent colonoscopy/EGD. EGD showing normal esophagus and duodenum. Mild gastritis noted. [place] showing transverse colon polyps that were removed and a few medium sized internal hemorrhoids. Okay to resume anti-coagulation per GI note and this was done. Will continue PPI treatment. (6) SVT (supraventricular tachycardia): Code(s): I47.1 - Supraventricular tachycardia Status: Acute Assessment and Plan: During the rapid response, there was concern that the patient had SVT. She has hx of SVT. EKG however more consistent with sinus tach
--- NOTE | 2020-07-15 14:49 | PCPTNOTE ---
Attempted PT eval at 1100. Pt refused as just back to bed. Attempted eval at 1445. Pt refused as she is being discharged to home.
== END 2020-07-15 14:58 | disposition home or self-care (01) | DRG 189 ==
LOC: ANHED 20:23 → ANH3MEDSUR 20:42 → ANHIMU 07-12 04:41
PROVIDERS: Emergency Medicine; Internal Medicine Gastroenterology; Admitting Provider Internal Medicine; Emergency Provider Nurse Practitioner; PCP Family Medicine Sports Medicine; Visit Provider Internal Medicine
PROC: 0DJ08ZZ Inspection of Upper Intestinal Tract, Via Natural or Artificial Opening Endoscopic (ICD-10-PCS; CPT 43235; principal; 2020-07-14 14:30)
DX: J96.22 Acute and chronic respiratory failure with hypercapnia (principal); I50.33 Acute on chronic diastolic (congestive) heart failure; J44.1 Chronic obstructive pulmonary disease with (acute) exacerbation; I16.1 Hypertensive emergency; D62 Acute posthemorrhagic anemia; N17.9 Acute kidney failure, unspecified; I47.1 Supraventricular tachycardia; N39.0 Urinary tract infection, site not specified; R19.5 Other fecal abnormalities; B96.20 Unspecified Escherichia coli [E. coli] as the cause of diseases classified elsewhere; J96.11 Chronic respiratory failure with hypoxia; I27.20 Pulmonary hypertension, unspecified; K29.70 Gastritis, unspecified, without bleeding; K63.5 Polyp of colon; K57.30 Diverticulosis of large intestine without perforation or abscess without bleeding; K64.4 Residual hemorrhoidal skin tags; K64.8 Other hemorrhoids; F17.210 Nicotine dependence, cigarettes, uncomplicated; I48.91 Unspecified atrial fibrillation; E78.5 Hyperlipidemia, unspecified; M81.0 Age-related osteoporosis without current pathological fracture; D50.9 Iron deficiency anemia, unspecified; I25.10 Atherosclerotic heart disease of native coronary artery without angina pectoris; I11.0 Hypertensive heart disease with heart failure; E11.42 Type 2 diabetes mellitus with diabetic polyneuropathy; G47.33 Obstructive sleep apnea (adult) (pediatric); M06.9 Rheumatoid arthritis, unspecified; I25.2 Old myocardial infarction; Z79.01 Long term (current) use of anticoagulants; Z99.81 Dependence on supplemental oxygen
CPT/HCPCS: 36415; 36430; 36600; 71045; 76775; 80048; 80053; 80069; 81001; 82375; 82570; 82728; 82805; 82948; 83050; 83540; 83550; 83605; 83735; 83880; 84100; 84300; 85014; 85018; 85025; 85027; 85652; 85999; 86140; 86850; 86900; 86901; 86923; 87077; 87086; 87088; 87186; 88305; 93005; 94002; 94003; 94640; 96361; 96374; 96375; 96376; 97165; 99285; A9270; C9113; G0378; J0696; J1940; J2270; J2405; J2704; J2920; J2930; J7030; J7120; J7512; P9016

== ENCOUNTER 2020-08-06 05:58 | Outpatient (CLI) | payer MEDICARE, SELFPAY ==
[2020-07-30 14:54] VITALS: BMI 23.3
--- NOTE | 2020-07-31 11:49 | PC.NURSE ---
07/30/2020 PT STATES SHE WAS RECENTLY IN THE HOSPITAL AND WAS GIVEN A PREP FOR COLONOSCOPY AND THE MAG. CITRATE MADE HER NAUSEATED AND SHE VOMITED IT AND WAS NOT ABLE TO KEEP ANY OF IT DOWN, SHE STATED SHE WOULD RATHER NOT HAVE THIS DONE IF SHE HAS TO DRINK IT AGAIN. I CONVEYED THIS TO DR. NUGENT AND HE IS OKAY WITH PATIENT TAKING 4 5MG DUCOLAX (LAXATIVE) TABS ON THE DAY PRIOR TO THE GIVENS CAPSULE RATHER THAN THE MAG. CITRATE. PT WAS OKAY WITH THIS PLAN.
--- NOTE | 2020-08-06 07:08 | SUR.OPER ---
Patient brought to GI Lab. Instructions for patient undergoing Capsule Endoscopy reviewed with patient. Consent form signed. Sensor array applied to patient's abdomen and connected to recorded. Patient swallowed capsule with 16 ozs of water infused with Simethicone. Patient instructed they may have clear liquids at 0830 this AM and eat or drink at 1030 this AM. Patient instructed to return to GI Lab at 1500 this afternoon for removal of recording device and to call [phone] or to return to the hospital if any nausea and vomiting or abdominal pain is experienced.
--- NOTE | 2020-08-06 15:08 | SUR.PHASEII ---
Patient returned to the GI Lab at 1500 for recorder box removal. Patient voiced no complaints. States they have understanding of instructions. Device removed by patient's vehicle under pavilion.
== END 2020-08-06 05:59 | disposition home or self-care (01) ==
LOC: ANHENDO 05:59
PROVIDERS: PCP Family Medicine Sports Medicine; Visit Provider Internal Medicine Gastroenterology
PROC: 0DJ07ZZ Inspection of Upper Intestinal Tract, Via Natural or Artificial Opening (ICD-10-PCS; CPT 91110; principal; 2020-08-06 07:00)
DX: D50.9 Iron deficiency anemia, unspecified (principal)
CPT/HCPCS: 91110

== ENCOUNTER 2020-09-23 17:16 | Inpatient (IN) | payer MEDICARE, SELFPAY ==
[2020-09-23] VITALS (18 sets, daily range): BP systolic 151–184; BP diastolic 72–131; PULSE 91–108; RESP 13–23; TEMP 36.6–37.4; O2SAT 94–100; BMI 23.3
--- NOTE | ~2020-09-23 | XR_ITS ---
EXAMINATION: XR chest 2V DATE: 09/23/2020 17:55 INDICATION: Shortness of breath TECHNIQUE: AP and lateral views of the chest are obtained. COMPARISON: 07/14/2020 FINDINGS: There are airspace opacities of the lower lobes and right middle lobe. Diffuse interstitial opacities are present throughout all lung zones. The heart size is normal. There are small pleural e ffusions. No pneumothorax is identified. Thoracic spondylosis is noted. IMPRESSION: 1. Mild pulmonary edema. 2. Minimal opacities of the lung bases, consistent with atelectasis versus pneumonia. 3. Small pleural effusions. Reviewed, dictated and finalized at location A. IMPRESSION: 1. Mild pulmonary edema. 2. Minimal opacities of the lung bases, consistent with atelectasis versus pneu monia. 3. Small pleural effusions.
--- NOTE | 2020-09-23 17:21 | ECG_ITS ---
Measurements Intervals [place] Rate: 106 P: 76 WV: 159 QRS: -25 QRSD: 106 T: 94 QT: 334 QTc: 445 Interpretive Statements SINUS TACHYCARDIA POSSIBLE LEFT ATRIAL ENLARGEMENT DELAYED PRECORDIAL R/S TRANSITION NONSPECIFIC ST & T-WAVE ABNORMALITY- LAT/HIGH LAT LEADS BASELINE ARTIFACT- I, V3, V5 ABNORMAL ECG Electronically Signed On 09-23-2020 21:13:35 CDT by Joshua Bennett D.O.
[2020-09-23 18:01] LABS: Basophils Percent Auto 0.6 % (0.2-1.2); Eosinophils Absolute Auto 0.4 K/mm3 (0-0.3); Eosinophils Percent Auto 6.2 % (0-4.4); Hemoglobin 7.4 g/dL (12.0-15.0); Immature Granulocyte Absolute 0.04 K/mm3 (0.00-0.031); Immature Granulocyte Percent A 0.6 % (0-0.5); Lymphocytes Absolute Auto 0.82 K/mm3 (0.9-3.2); Lymphocytes Percent Auto 11.8 % (18.3-44.2); Mean Corpuscular HGB Conc 28.5 g/dl (32-36); Mean Corpuscular Hemoglobin 24.6 pg (26-34); Mean Corpuscular Volume 86.4 fl (80-100); Mean Platelet Volume 9.7 fl (7.4-10.4); Monocytes Absolute Auto 0.3 K/mm3 (0.1-0.6); Monocytes Percent Auto 4.2 % (2.6-8.5); Neutrophils Absolute Auto 5.4 K/mm3 (1.3-6.7); Neutrophils Percent Auto 76.6 % (45.5-73.1); Platelet Count Result 200 k/mm3 (150-375); Red Blood Count 3.01 M/mm3 (4.2-5.4); Red Cell Distribution Width 19.4 % (11.5-14.5)
[2020-09-23 18:13] LABS: INR 1.3; Prothrombin Time 16.2 Seconds (11.1-14.7)
[2020-09-23 18:14] LABS: Partial Thromboplastin Time 33.1 SECONDS (22.3-36.8)
[2020-09-23 18:32] LABS: Anion Gap 9 mmol/L (8-16); Blood Urea Nitrogen 22 mg/dL (7-17); Calcium 9.5 mg/dL (8.4-10.2); Carbon Dioxide 29 mmol/L (22-30); Chloride 100 mmol/L (98-107); Estimated CRCL calculation 28 ml/min; Estimated Glomerular Filt Rate 37; Glucose 146 mg/dL (65-110); Potassium 5.3 mmol/L (3.4-5.0); Sodium 138 mmol/L (137-145)
[2020-09-23 18:52] LABS: Troponin I 0.039 ng/mL (0.000-0.034)
[2020-09-23 19:02] LABS: NT Pro B Type Natriuretic Pept 4950 pg/mL (5-100)
--- NOTE | 2020-09-23 19:30 | ED.GENADULT ---
HPI - General Adult General Chief complaint: Shortness of Breath/Dyspnea Stated complaint: SOB ON 5L O2 Time Seen by Provider: 09/23/20 19:16 Source: patient, family, RN notes reviewed and old records reviewed Mode of arrival: ambulatory Limitations: no limitations History of Present Illness HPI narrative: Patient is 70-year-old female who presents to emergency department for evaluation of exertional dyspnea and chest pain for the last 3 days patient notes anytime she has been up and ambulating she gets short of breath and gets discomfort of the chest she notes history of COPD followed by pulmonology denies any URI symptoms on arrival is resting comfortably in the room in no distress. Patient denies any current chest pain. Patient denies any vomiting diarrhea or urinary symptoms Related Data Home Medications Medication Instructions Recorded Confirmed potassium chloride 20 meq PO DAILY 03/21/19 09/12/20 metformin 500 mg PO BID 08/26/19 09/12/20 losartan 50 mg PO DAILY 11/08/19 09/12/20 alendronate 70 mg tablet 70 mg PO WEEKLY 05/09/20 09/12/20 sertraline 50 mg tablet 50 mg PO DAILY 05/09/20 09/12/20 oxymetazoline [12 Hour Nasal [place]] 2 spray INTRANASAL Q12H PRN 07/11/20 09/12/20 albuterol sulfate 2.5 mg INHALATION Q6H PRN 07/12/20 09/12/20 amiodarone 200 mg PO DAILY 07/12/20 09/12/20 aspirin 81 mg PO DAILY 07/12/20 09/12/20 atorvastatin 10 mg PO DAILY 07/12/20 09/12/20 econazole 1 applic TOPICAL BID 07/12/20 09/12/20 furosemide 20 mg PO DAILY 07/12/20 09/12/20 Trelegy Ellipta 09/12/20 Allergies Allergy/AdvReac Type Severity Reaction Status Date / Time morphine Allergy Intermediate Itching Verified 09/12/20 10:50 pregabalin Allergy Intermediate Itching Verified 09/12/20 10:50 Review of Systems Review of Systems: All systems reviewed & are unremarkable except as noted in HPI and below PMFSH Past Medical History Medical History A-fib With an ablation and paroxysmal Acute on chronic blood loss anemia Anxiety Arthritis CAD (coronary artery disease) s/p 3 stents (mid LAD, mid CX, mid RCA) after Non STEMI May 201706/2019: Stent to the distal RCA, POBA PDA Chronic anemia Chronic respiratory failure with hypoxia Chronically on oxygen at 5 L per nasal cannula. Closed intertrochanteric fracture of right hip Treated non operatively October 2019 Congestive heart failure Diastolic with most recent echocardiogram January 2019 demonstrating paradoxical septal motion consistent with right ventricular volume overload or elevated right ventricular end-diastolic pressure, EF 60-65%, mildly increased left ventricular wall thickness, grade 1 diastolic dysfunction, severely reduced right ventricular systolic function, severely enlarged right ventricular chamber, severely enlarged right atrial chamber, [id number] mitral valve regurgitation, trace tricuspid regurgitation, mild pulmonary hypertension with RVSP of 46 COPD (chronic obstructive pulmonary disease) Depression DM2 (diabetes mellitus, type 2) Generalized osteoarthritis of multiple sites GERD (gastroesophageal reflux disease) Heart attack Heart disease History of kidney stones HTN (hypertension) Hyperlipidemia Hypomagnesemia Irritable bowel 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 Dr. hummel February 2018 H/O lithotripsy H/O: hysterectomy History of cholecystectomy History of hysterectomy S/P ablation of atrial fibrillatio
[2020-09-23 19:47] LABS: Alveolar/Arterial O2 Gradient 34.2 mmHg; Base Excess ABG 2.9 mEq/l (+/-2.0); Carboxyhemoglobin 0.8 % THb (0-2.0); Fractional Inspired Oxygen 36 %; HCO3 ABG 28.2 mEq/l (22.0-26.0); Methemoglobin ABG 0.5 %THb (0-1.5); Oxygen Content ABG 10.9 %vol (16.0-22.0); Oxygen Saturation ABG 99.1 % (95.0-100.0); Oxyhemoglobin 97.3 % THb (90.0-100.0); PCO2 ABG 47.5 mmHg (35.0-45.0); PO2 ABG 167.4 mmHg (80.0-100.0); PO2 FiO2 Ratio Arterial Blood 4.65 %; Reduced Hemoglobin 1.4 %THb (0-5.0); pH ABG 7.392 (7.350-7.450)
[2020-09-23 19:49] LABS: Device NASAL CANNULA; Modified Allen's Test Pass; Site Drawn RIGHT RADIAL; Total Hemoglobin 7.7 g/dL (12.0-18.0)
[2020-09-23] MEDS: FUROSEMIDE INJ 40 MG/4 ML VIAL IV PUSH (19:54)
[2020-09-23 21:31] LABS: Cholesterol 96 mg/dL (0-200); HDL Direct 61 mg/dL; Triglycerides 109 mg/dL (<150)
[2020-09-23 21:52] LABS: Troponin I 0.043 ng/mL (0.000-0.034)
--- NOTE | 2020-09-23 23:09 | PC.NURSE ---
2250 report received from TWILA Gee.
[2020-09-24] VITALS (14 sets, daily range): BP systolic 131–146; BP diastolic 73–81; PULSE 82–113; RESP 20–28; TEMP 36.4–36.7; O2SAT 90–100
--- NOTE | 2020-09-24 | ECHO_ITS ---
Patient Info Name: Piedad Andrade Age: 70 years : 1950 Gender: Female Ht: 63 in Wt: 130 lbs BSA: 1.63 m2 HR: 107 bpm BP: 140 / 74 mmHg Heart Rhythm: Sinus Rhythm, Tachycardia Technical Quality: Good Exam Date: 09/24/2020 1:21 PM Exam Location: [facility] Pulmonary Exam Room: 212 Patient Status: Inpatient Admit Date: 09/24/2020 Staff Ordering Physician: Annelise Cabrera PA-C [employer] Professor: Mattie Sandhu RDCS Attending Provider: Annelise Cabrera PA-C Referring Physician: Deborah MARTÍNEZ; Exam Type: CA echo doppler color flow Study Info Indications - CHF EXACERBATION Complete two-dimensional, color flow and Doppler transthoracic echocardiogram is performed. Summary 1. Complete two-dimensional, color flow and Doppler transthoracic echocardiogram is performed. 2. Normal left ventricular size with moderate concentric hypertrophy. Overall good left ventricular systolic function with an estimated ejection fraction is 60-65%. It does appear to be hypokinesis of the basal inferoseptal segment. Grade 2 diastolic dysfunction is present. 3. There is mild aortic valve calcification without stenosis. 4. There is mild tricuspid valve regurgitation. 5. Mild pulmonary hypertension, estimated pulmonary arterial systolic pressure is 39 mmHg. 6. Normal sinus rhythm. Left Ventricle Left ventricular chamber dimension is normal. Left ventricular systolic function is normal, estimated at 60-65%. There is moderately increased left ventricular wall thickness. Left ventricular septal wall motion is normal. The left ventricular diastolic function is grade II diastolic dysfunction. Right Ventricle Right ventricular chamber dimension is normal. Right ventricular systolic function is normal. Left Atria Left atrial chamber dimension is moderately enlarged. Right Atria Right atrial chamber dimension is normal. Aortic Valve The aortic valve is trileaflet. There is no aortic valve sclerosis. There is no aortic valve stenosis. There is no aortic valve regurgitation. There is mild aortic valve calcification without stenosis. Pulmonic Valve The pulmonic valve is normal. There is no pulmonic valve stenosis. There is no pulmonic regurgitation. Mitral Valve The mitral valve has thickened leaflets. There is no mitral valve stenosis. There is trace mitral valve regurgitation. Tricuspid Valve The tricuspid valve leaflets are normal. There is no significant tricuspid valve stenosis. There is mild tricuspid valve regurgitation. Mild pulmonary hypertension, estimated pulmonary arterial systolic pressure is 39 mmHg. Pericardium/Pleural The pericardium appears normal. There is no pericardial effusion. Inferior Vena Cava Normal inferior vena cava with >50% collapse upon inspiration consistent with Empty right atrial pressure, 10 mmHg. Aorta The aortic root size at the sinus of Valsalva is normal. The prox ascending aorta size is normal. There is mild aortic atherosclerosis. Left Ventricular Outflow Tract Name Value Normal LVOT 2D LVOT Diameter 2.0 cm LVOT Doppler LVOT Peak Gradient
--- NOTE | 2020-09-24 00:07 | ADMGEN ---
This patient, Piedad Andrade, was admitted to IMU Room 212-01 on 09-23-20 at 2320. Patient/family oriented to hospital policies and general routines including ID bracelet, bed and alarms, visiting hours, pain management, procedures, bathroom and other care routines, personal items, smoking policy, room service/diet, and visiting hours. Information on how to activate the Rapid Response Team has been discussed. Patient/Family are encouraged to report perceived risks to care and to ask questions if they do not understand what they are told or what they should do.
--- NOTE | 2020-09-24 01:26 | PM.IMHP ---
H&P: HPI History of Present Illness Date/Time: 09/24/20 01:26 Chief Complaint: chest pain Narrative: This is a 70-year-old female with past medical history significant for chronic respiratory failure on 5 L by nasal cannula at home, atrial fibrillation, hypertension, GERD, type 2 diabetes mellitus, osteoporosis. patient presented to the emergency room due to worsening shortness of breath and chest pain with activity fast heart rate patient monitors her heart rate with pulse ox device at home states that every time she gets up from sitting position she gets very short of breath and her heart rate increases to the 150's. she denies any cough any sputum production on no chills no rigors no fevers no nausea no vomiting no abdominal pain no diarrhea no leg swelling. Preliminary workup was significant for elevated troponin, chest x-ray was significant for infiltrates, an ABG was within normal limits, heart rate was in the 90s. Review of Systems Review of Systems: Narrative: fast heart rate shortness of breath worse at exertion Constitutional: Constitutional: Denies chills, Denies fatigue, Denies fever(s) and Denies weakness Eyes: Eyes: Denies change in vision ENT: Denies dysphagia, Denies nasal obstruction and Denies odynophagia Cardiovascular: Cardiovascular: Reports chest pain, Reports chest pain with activity, Reports rapid heart rate, Denies radiating jaw, neck or arm pain, Reports dyspnea, Reports dyspnea on exertion and Denies orthopnea Respiratory: Respiratory: Reports cough ( nonproductive) Gastrointestinal: Gastrointestinal: Denies abdominal pain, Denies diarrhea, Denies nausea and Denies vomiting Genitourinary: Genitourinary: Reports no additional female genitourinary complaints Musculoskeletal: Musculoskeletal: Reports no additional musculoskeletal complaints Integumentary/Breasts: Skin/Breast: Reports system reviewed and no additional complaints, except as docu Neurologic: Reports system reviewed and no additional complaints, except as documented Psychiatric: Psychiatric: Reports no additional psychiatric complaints Endocrine: Endocrine: Reports no additional endocrine complaints Hematologic/Lymphatic: Hematologic/Lymphatic: Reports no additional hematologic/lymphatic complaints Allergic/Immunologic: Allergic/Immunologic: Reports no additional allergic/immunologic complaints [facility] Past Medical History Medical History A-fib With an ablation and paroxysmal Acute on chronic blood loss anemia Anxiety Arthritis CAD (coronary artery disease) s/p 3 stents (mid LAD, mid CX, mid RCA) after Non STEMI May 201706/2019: Stent to the distal RCA, POBA PDA Chronic anemia Chronic respiratory failure with hypoxia Chronically on oxygen at 5 L per nasal cannula. Closed intertrochanteric fracture of right hip Treated non operatively October 2019 Congestive heart failure Diastolic with most recent echocardiogram January 2019 demonstrating paradoxical septal motion consistent with right ventricular volume overload or elevated right ventricular end-diastolic pressure, EF 60-65%, mildly increased left ventricular wall thickness, grade 1 diastolic dysfunction, severely reduced right ventricular systolic function, severely enlarged right ventricular chamber, severely enlarged right atrial chamber, [id number] mitral valve regurgitation, trace tricuspid regurgitation, mild pulmonary hypertension with RVSP of 46 COPD (chronic obstructive pulmonary disease) Depression DM2 (diabetes mellitus, type 2) Generalized osteoarthritis of multiple sites GERD (gastroesophageal reflux disease) Heart attack Heart disease History of kidney stones HTN (hypertension) Hyperlipidemia Hypomagnesemia Irritable bowel Kidney stone 2004 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
[2020-09-24 03:13] LABS: Troponin I 0.054 ng/mL (0.000-0.034)
[2020-09-24 03:17] LABS: LDL Cholesterol Direct < 30 mg/dL
[2020-09-24] MEDS: ACETAMINOPHEN 325 MG TABLET 650 MG PO (07:01)
[2020-09-24] MEDS: FLUTICASONE/UMECLIDIN/VILANTER 100-62.5-25 MCG ELLIPTA 1 PUFF INHALATION (08:04)
[2020-09-24] MEDS: AMIODARONE HCL 200 MG TABLET PO (08:49)
[2020-09-24] MEDS: ROFLUMILAST 500 MCG TABLET PO (08:49)
[2020-09-24] MEDS: PANTOPRAZOLE 40 MG TABLET PO (08:49)
[2020-09-24] MEDS: SERTRALINE HCL 50 MG TABLET PO (08:49)
[2020-09-24] MEDS: ASPIRIN 81 MG CHEWABLE TABLET PO (08:49)
[2020-09-24] MEDS: THERAPEUTIC MULTIVITAMINS/MINERALS TAB (*BKC) 1 TABLET PO (08:49)
[2020-09-24] MEDS: LOSARTAN POTASSIUM 50 MG TABLET PO (08:50)
[2020-09-24] MEDS: predniSONE 10 MG TABLET PO (08:50)
[2020-09-24] MEDS: ATORVASTATIN 10 MG TABLET PO (08:50)
[2020-09-24] MEDS: MAGNESIUM OXIDE 400 MG TABLET PO (08:52)
[2020-09-24 10:11] LABS: Hematocrit 25.5 % (37.0-47.0); Hemoglobin 7.4 g/dL (12.0-15.0); Mean Corpuscular Hemoglobin 24.9 pg (26-34); Mean Corpuscular Volume 85.9 fl (80-100); Mean Platelet Volume 10.3 fl (7.4-10.4); Platelet Count Result 189 k/mm3 (150-375); Red Blood Count 2.97 M/mm3 (4.2-5.4); Red Cell Distribution Width 19.4 % (11.5-14.5); White Blood Count 6.9 K/mm3 (4.5-10.0)
[2020-09-24 10:24] LABS: Anion Gap 6 mmol/L (8-16); Blood Urea Nitrogen 25 mg/dL (7-17); Calcium 9.2 mg/dL (8.4-10.2); Carbon Dioxide 33 mmol/L (22-30); Chloride 99 mmol/L (98-107); Estimated CRCL calculation 30 ml/min; Estimated Glomerular Filt Rate 40; Glucose 117 mg/dL (65-110); Potassium 4.4 mmol/L (3.4-5.0); Sodium 138 mmol/L (137-145)
[2020-09-24 10:39] LABS: Troponin I 0.044 ng/mL (0.000-0.034)
--- NOTE | 2020-09-24 10:59 | PM.CNCAR ---
Assessment and Plan Assessment and plan (1) Elevated troponin: Code(s): R77.8 - Other specified abnormalities of plasma proteins Status: Acute Assessment and Plan: Patient has mildly elevated troponins as above. EKG does not show any acute ischemic changes. Doubt ACS. I suspect this is a type 2 FL related to the patient's CHF which caused hypoxia and tachycardia. (2) Acute on chronic diastolic heart failure: Code(s): I50.33 - Acute on chronic diastolic (congestive) heart failure Status: Acute Assessment and Plan: Patient demonstrates acute on chronic diastolic heart failure, related to her noncompliance with daily Lasix therapy. Improving w/ diuresis. Cont IV lasix. Echo pending. Daily BMP. (3) Paroxysmal atrial fibrillation: Code(s): I48.0 - Paroxysmal atrial fibrillation Status: Acute Assessment and Plan: Patient has a history of paroxysmal atrial fibrillation status post ablation, paroxysmal atrial flutter in PSVT. Has been on amiodarone since April. Complains of palpitations and tachycardia at home with heart rates up to 150s, unclear if this is sinus tach or an atrial arrhythmia. We have not seen any atrial arrhythmias here. Continue amiodarone and Tele Resume her Eliquis 5 mg BID which pt states she is taking at home Follow H&H daily. (4) Chronic anemia: Code(s): D64.9 - Anemia, unspecified Status: Acute Assessment and Plan: Chronic anemia, somewhat worse than baseline but no obvious GI bleeding. Contributes to myocardial stress Not at the point that a transfusion is needed. (5) COPD (chronic obstructive pulmonary disease): Qualifiers: COPD type: unspecified COPD Qualified Code(s): J44.9 - Chronic obstructive pulmonary disease, unspecified Code(s): J44.9 - Chronic obstructive pulmonary disease, unspecified Status: Chronic Assessment and Plan: History history of severe lung disease, COPD, although EMR also suggest interstitial lung disease ( unfortunately has required amiodarone to control atrial arrhythmias ). On home O2 and CPAP Continue same History of Present Illness History of Present Illness Consult date/time: 09/24/20 10:59 Reason For Visit: Elevated troponin, CHF exacerbation, COPD exacerb Narrative: Date of Service: 09/24/2020 Piedad Andrade is a 70-year-old female whom we were asked to see at the request of the hospitalist for my advice and opinion regarding her elevated troponin and abnormal EKG, in consultation. She has severe COPD and interstitial lung disease on home O2 at 5 L, CAD and a history of atrial arrhythmias. Also diabetes, rheumatoid arthritis, history of cerebral hemorrhage secondary to a fall and syncope, chronic right-sided heart failure and CHF. She is followed by Dr. Farr for CAD and atrial arrhythmias. She has a history of CAD with non-STEMI in June 2017. She had RCA, Left anterior descending and circumflex stents placed by Dr. Willis. She had more chest pain and another PCI of the RCA stent and balloon angioplasty of the PDA in June 2019. She has history of paroxysmal atrial fibrillation and AFib ablation at [facility] in 2018. Echo 01/2819 showed EF 60-65%, LVH, diastolic dysfunction, severely enlarged right ventricle with severely reduced RV function, RVSP 46 mmHg. In April 2020 she was admitted and was in atrial flutter. She also has had some possible PSVT. Her Brilinta was changed to apixaban , and she was started on amiodarone. She was admitted with anemia in June 2020 And also had some CHF Versus COPD exacerbation .She has last seen by Dr. Farr on 09/05/2020 with stable anemia (required a transfusion earlier this year) encouraged to follow-up with Dr. Baptiste
--- NOTE | 2020-09-24 12:18 | P.PNIM_ITS ---
Progress Note: A&P Assessment and Plan (1) Acute on chronic diastolic heart failure: Code(s): I50.33 - Acute on chronic diastolic (congestive) heart failure Status: Acute Assessment and Plan: CXR with mild pulmonary edema and small pleural effusions. BNP is 4900 * continue with IV diuresis. monitor renal function with Lasix. * echocardiogram has been ordered and is pending * monitor intake and output, daily weights. Heart healthy diet with fluid restriction * poorly compliant with Lasix at home (2) Elevated troponin: Code(s): R77.8 - Other specified abnormalities of plasma proteins Status: Acute Assessment and Plan: Suspect type 2 ME likely related to atrial tachycardia and CHF. She is asymptomatic. * Troponin peak at 0.054 with downward trend * Appreciate cardiology consultation * EKG reviewed (3) Paroxysmal atrial fibrillation: Code(s): I48.0 - Paroxysmal atrial fibrillation Status: Acute Assessment and Plan: currently in sinus rhythm with rate in the 90s * appreciate cardiology consultation * continue with amiodarone * continue home Eliquis * monitor on telemetry (4) HTN (hypertension) with goal to be determined: Code(s): I10 - Essential (primary) hypertension Status: Chronic Assessment and Plan: blood pressure reviewed and has been slightly elevated above target, likely related to volume overload. Improving with diuresis. Last BP 146/81 * continue losartan * monitor BP trends (5) CKD (chronic kidney disease): Code(s): N18.9 - Chronic kidney disease, unspecified Status: Acute Assessment and Plan: baseline appears to be around 1.3 * renal functions consistent with baseline at this time * monitor closely with diuresis (6) DM2 (diabetes mellitus, type 2): Qualifiers: Diabetes mellitus custodial insulin use: without custodial use Diabetes mellitus complication status: without complication Qualified Code(s): E11.9 - Type 2 diabetes mellitus without complications Code(s): E11.9 - Type 2 diabetes mellitus without complications Status: Chronic Assessment and Plan: last A1c 6.5. glucose 117 this a.m. * begin Accu-Cheks, sliding scale insulin, hypoglycemic protocol * hold metformin (7) Chronic anemia: Code(s): D64.9 - Anemia, unspecified Status: Acute Assessment and Plan: Baseline Hgb is around 8.0 * Hgb 7.4 today * Recently hospitalized in June 2020 with GI bleeding * No signs/symptoms to suggest blood loss at this time, VSS * Monitior H&H closely and transfuse as needed (8) Chronic respiratory failure with hypoxia: Code(s): J96.11 - Chronic respiratory failure with hypoxia Status: Chronic Assessment and Plan: probably multifactorial to include pulmonary hypertension, obstructive sleep apnea, interstitial lung disease, and COPD * she is on 5 L per nasal cannula home * she is maintaining adequate oxygenation on her typical oxygen requirements * continue home inhalers * CPAP at night Additional Plan She is hemodynamically stable and will downgrade to med surg with telemetry She states she just completed macrobid for UTI 1 day ago. No urinary symptoms at this time. Subjective Date/time seen: 09/24/20 12:18 Interval history: date of service: 09/24/2020 Piedad Andrade is a 70-year-old female with a history of atrial
--- NOTE | 2020-09-24 12:18 | PM.IMPN ---
Progress Note: A&P Assessment and Plan (1) Acute on chronic diastolic heart failure: Code(s): I50.33 - Acute on chronic diastolic (congestive) heart failure Status: Acute Assessment and Plan: CXR with mild pulmonary edema and small pleural effusions. BNP is 4900 continue with IV diuresis. monitor renal function with Lasix. echocardiogram has been ordered and is pending monitor intake and output, daily weights. Heart healthy diet with fluid restriction poorly compliant with Lasix at home (2) Elevated troponin: Code(s): R77.8 - Other specified abnormalities of plasma proteins Status: Acute Assessment and Plan: Suspect type 2 [place] likely related to atrial tachycardia and CHF. She is asymptomatic. Troponin peak at 0.054 with downward trend Appreciate cardiology consultation EKG reviewed (3) Paroxysmal atrial fibrillation: Code(s): I48.0 - Paroxysmal atrial fibrillation Status: Acute Assessment and Plan: currently in sinus rhythm with rate in the 90s appreciate cardiology consultation continue with amiodarone continue home Eliquis monitor on telemetry (4) HTN (hypertension) with goal to be determined: Code(s): I10 - Essential (primary) hypertension Status: Chronic Assessment and Plan: blood pressure reviewed and has been slightly elevated above target, likely related to volume overload. Improving with diuresis. Last BP 146/81 continue losartan monitor BP trends (5) CKD (chronic kidney disease): Code(s): N18.9 - Chronic kidney disease, unspecified Status: Acute Assessment and Plan: baseline appears to be around 1.3 renal functions consistent with baseline at this time monitor closely with diuresis (6) DM2 (diabetes mellitus, type 2): Qualifiers: Diabetes mellitus mcfp insulin use: without terminal gauger use Diabetes mellitus complication status: without complication Qualified Code(s): E11.9 - Type 2 diabetes mellitus without complications Code(s): E11.9 - Type 2 diabetes mellitus without complications Status: Chronic Assessment and Plan: last A1c 6.5. glucose 117 this a.m. begin Accu-Cheks, sliding scale insulin, hypoglycemic protocol hold metformin (7) Chronic anemia: Code(s): D64.9 - Anemia, unspecified Status: Acute Assessment and Plan: Baseline Hgb is around 8.0 Hgb 7.4 today Recently hospitalized in June 2020 with GI bleeding No signs/symptoms to suggest blood loss at this time, VSS Monitior H&H closely and transfuse as needed (8) Chronic respiratory failure with hypoxia: Code(s): J96.11 - Chronic respiratory failure with hypoxia Status: Chronic Assessment and Plan: probably multifactorial to include pulmonary hypertension, obstructive sleep apnea, interstitial lung disease, and COPD she is on 5 L per nasal cannula home she is maintaining adequate oxygenation on her typical oxygen requirements continue home inhalers CPAP at night Additional Plan She is hemodynamically stable and will downgrade to med surg with telemetry She states she just completed macrobid for UTI 1 day ago. No urinary symptoms at this time. Subjective Date/time seen: 09/24/20 12:18 Interval history: date of service: 09/24/2020 Piedad Andrade is a 70-year-old female with a history of atrial fibrillation on chronic anticoagulation , CAD, chronic respiratory failure 5 L per nasal cannula, CHF, COPD, type 2 diabetes mellitus, hypertension, JOAQUIN, PSVT, and several other comorbidities who is here in follow-up for acute on diastolic heart paroxysmal atrial fibrillation. she is feeling better today. her main complaint at this time is a frontal tension type headache that is improving with Tylenol. She denies shortness of breath but states that a time she gets to moving she does amanda
[2020-09-24 17:12] LABS: Glucose Point of Care 148 mg/dl (65-105)
[2020-09-24 20:19] LABS: Glucose Point of Care 209 mg/dl (65-105)
[2020-09-24] MEDS: APIXABAN 5 MG TABLET PO (20:34)
--- NOTE | 2020-09-24 22:07 | PC.NURSE ---
Report given to TWILA Yeung.
[2020-09-25] VITALS (16 sets, daily range): BP systolic 129–150; BP diastolic 60–74; PULSE 68–114; RESP 16–20; TEMP 36–37.1; O2SAT 90–100
[2020-09-25 06:05] LABS: Hematocrit 23.7 % (37.0-47.0)
[2020-09-25 06:09] LABS: Hemoglobin 6.8 g/dL (12.0-15.0)
[2020-09-25 06:33] LABS: Anion Gap 4 mmol/L (8-16); Blood Urea Nitrogen 27 mg/dL (7-17); Calcium 8.6 mg/dL (8.4-10.2); Carbon Dioxide 34 mmol/L (22-30); Chloride 99 mmol/L (98-107); Estimated CRCL calculation 26 ml/min; Estimated Glomerular Filt Rate 34; Glucose 113 mg/dL (65-110); Magnesium 1.8 mg/dL (1.6-2.3); Potassium 3.8 mmol/L (3.4-5.0); Sodium 137 mmol/L (137-145)
[2020-09-25 07:41] LABS: Glucose Point of Care 105 mg/dl (65-105)
[2020-09-25] MEDS: MAGNESIUM OXIDE 400 MG TABLET PO (09:08)
[2020-09-25] MEDS: ATORVASTATIN 10 MG TABLET PO (09:08)
[2020-09-25] MEDS: ROFLUMILAST 500 MCG TABLET PO (09:09)
[2020-09-25] MEDS: THERAPEUTIC MULTIVITAMINS/MINERALS TAB (*BKC) 1 TABLET PO (09:09)
[2020-09-25] MEDS: AMIODARONE HCL 200 MG TABLET PO (09:09)
[2020-09-25] MEDS: PANTOPRAZOLE 40 MG TABLET PO (09:09)
[2020-09-25] MEDS: APIXABAN 5 MG TABLET PO (09:09)
[2020-09-25] MEDS: SERTRALINE HCL 50 MG TABLET PO (09:10)
[2020-09-25] MEDS: LOSARTAN POTASSIUM 50 MG TABLET PO (09:10)
[2020-09-25] MEDS: predniSONE 10 MG TABLET PO (09:10)
[2020-09-25] MEDS: FUROSEMIDE INJ 40 MG/4 ML VIAL IV PUSH (09:11)
--- NOTE | 2020-09-25 10:15 | P.PNIM_ITS ---
Progress Note: A&P Assessment and Plan (1) Acute on chronic diastolic heart failure: Code(s): I50.33 - Acute on chronic diastolic (congestive) heart failure Status: Acute Assessment and Plan: * CXR with mild pulmonary edema and small pleural effusions. BNP was 4900 on arrival. * Continue with IV diuresis. Monitor renal function and electrolytes with Lasix. * Echocardiogram reviewed; Grade 2 diastolic dysfunction present with preserved EF 60-65%, mild pulmonary HTN. * Monitor intake and output, daily weights. Heart healthy diet with fluid restriction. * Poorly compliant with Lasix at home, takes a few times per week . Discussed the importance of medication compliance. (2) Chronic anemia: Code(s): D64.9 - Anemia, unspecified Status: Chronic Assessment and Plan: * Baseline Hgb appears around 8.0. Down to 6.8 this morning, ordered 1 unit packed RBC this AM, monitor H&H. * Lasix after blood transfusion. Pt educated to notify staff if she becomes more short of breath. * No signs or symptoms of acute bleeding at this time. Check stool for occult blood and monitor while on Eliquis - consider holding Eliquis if any evidence of bleeding. * Continue to monitor H&H closely. (3) Elevated troponin: Code(s): R77.8 - Other specified abnormalities of plasma proteins Status: Acute Assessment and Plan: * Suspect type 2 [place] likely related to atrial tachycardia and CHF. She is asymptomatic. * Troponin peak at 0.054 with downward trend. * Appreciate cardiology input. * EKG reviewed. Echocardiogram as above. (4) Paroxysmal atrial fibrillation: Code(s): I48.0 - Paroxysmal atrial fibrillation Status: Chronic Assessment and Plan: * Currently in sinus rhythm, rate controlled. * Cardiology following. Continue amiodarone. Continue Eliquis while monitoring H&H and for signs of bleeding. (5) HTN (hypertension) with goal to be determined: Code(s): I10 - Essential (primary) hypertension Status: Chronic Assessment and Plan: * Blood pressures reviewed, improving. Last BP 136/60. * Continue home losartan while monitoring renal function. Monitor BP and adjust treatment as needed. (6) CKD (chronic kidney disease): Qualifiers: Chronic kidney disease stage: unspecified stage Qualified Code(s): N18.9 - Chronic kidney disease, unspecified Code(s): N18.9 - Chronic kidney disease, unspecified Status: Chronic Assessment and Plan: * Cr is elevated but near her baseline, 1.5 today. Continue to monitor renal function with diuresis. (7) DM2 (diabetes mellitus, type 2): Qualifiers: Diabetes mellitus detention insulin use: without dedicated intermodal truck driver use Diabetes mellitus complication status: without complication Qualified Code(s): E11.9 - Type 2 diabetes mellitus without complications Code(s): E11.9 - Type 2 diabetes mellitus without complications Status: Chronic Assessment and Plan: * Last A1c 6.5% in April. Metformin held. * Continue to monitor with accu-cheks and adjust treatment as needed, cover with SSI. (8) Chronic respiratory failure with hypoxia: Code(s): J96.11 - Chronic respiratory failure with hypoxia Status: Chronic Assessment and Plan:
--- NOTE | 2020-09-25 10:15 | PM.IMPN ---
Progress Note: A&P Assessment and Plan (1) Acute on chronic diastolic heart failure: Code(s): I50.33 - Acute on chronic diastolic (congestive) heart failure Status: Acute Assessment and Plan: CXR with mild pulmonary edema and small pleural effusions. BNP was 4900 on arrival. Continue with IV diuresis. Monitor renal function and electrolytes with Lasix. Echocardiogram reviewed; Grade 2 diastolic dysfunction present with preserved EF 60-65%, mild pulmonary HTN. Monitor intake and output, daily weights. Heart healthy diet with fluid restriction. Poorly compliant with Lasix at home, takes a few times per week . Discussed the importance of medication compliance. (2) Chronic anemia: Code(s): D64.9 - Anemia, unspecified Status: Chronic Assessment and Plan: Baseline Hgb appears around 8.0. Down to 6.8 this morning, ordered 1 unit packed RBC this AM, monitor H&H. Lasix after blood transfusion. Pt educated to notify staff if she becomes more short of breath. No signs or symptoms of acute bleeding at this time. Check stool for occult blood and monitor while on Eliquis - consider holding Eliquis if any evidence of bleeding. Continue to monitor H&H closely. (3) Elevated troponin: Code(s): R77.8 - Other specified abnormalities of plasma proteins Status: Acute Assessment and Plan: Suspect type 2 [place] likely related to atrial tachycardia and CHF. She is asymptomatic. Troponin peak at 0.054 with downward trend. Appreciate cardiology input. EKG reviewed. Echocardiogram as above. (4) Paroxysmal atrial fibrillation: Code(s): I48.0 - Paroxysmal atrial fibrillation Status: Chronic Assessment and Plan: Currently in sinus rhythm, rate controlled. Cardiology following. Continue amiodarone. Continue Eliquis while monitoring H&H and for signs of bleeding. (5) HTN (hypertension) with goal to be determined: Code(s): I10 - Essential (primary) hypertension Status: Chronic Assessment and Plan: Blood pressures reviewed, improving. Last BP 136/60. Continue home losartan while monitoring renal function. Monitor BP and adjust treatment as needed. (6) CKD (chronic kidney disease): Qualifiers: Chronic kidney disease stage: unspecified stage Qualified Code(s): N18.9 - Chronic kidney disease, unspecified Code(s): N18.9 - Chronic kidney disease, unspecified Status: Chronic Assessment and Plan: Cr is elevated but near her baseline, 1.5 today. Continue to monitor renal function with diuresis. (7) DM2 (diabetes mellitus, type 2): Qualifiers: Diabetes mellitus skilled nursing insulin use: without skilled nursing use Diabetes mellitus complication status: without complication Qualified Code(s): E11.9 - Type 2 diabetes mellitus without complications Code(s): E11.9 - Type 2 diabetes mellitus without complications Status: Chronic Assessment and Plan: Last A1c 6.5% in April. Metformin held. Continue to monitor with accu-cheks and adjust treatment as needed, cover with SSI. (8) Chronic respiratory failure with hypoxia: Code(s): J96.11 - Chronic respiratory failure with hypoxia Status: Chronic Assessment and Plan: Suspect multifactorial to include pulmonary hypertension, obstructive sleep apnea, interstitial lung disease, and COPD She is tolerating her home O2 requirement of 4 L per nasal cannula. No evidence of respiratory distress. Continue home inhalers. CPAP at night. Subjective Date/time seen: 09/25/20 7068 Interval history: Piedad frias
[2020-09-25] MEDS: SODIUM CHLORIDE 0.9% IV 250 ML 30 ML IV CONT (11:03)
[2020-09-25 11:04] LABS: Glucose Point of Care 171 mg/dl (65-105)
--- NOTE | 2020-09-25 11:40 | PCOTNOTE ---
Attempted OT evaluation, per RN hold therapy until tomorrow due to blood transfusion. Will follow and attempt tomorrow.
[2020-09-25] MEDS: ASPIRIN 81 MG CHEWABLE TABLET PO (11:48)
--- NOTE | 2020-09-25 13:36 | PC.NURSE ---
On 09/25/20, the student, [Shandra Gregory], provided care and completed [facility] documentation on this patient. I have reviewed the student's documentation and agree with the findings.
[2020-09-25] MEDS: FUROSEMIDE INJ 40 MG/4 ML VIAL 20 MG IV PUSH (14:15)
[2020-09-25 17:04] LABS: IFOB Positive Control Positive; Immunochemical Fecal Occult Bl Positive (N)
[2020-09-25 17:48] LABS: Hemoglobin 8.9 g/dL (12.0-15.0)
[2020-09-25 17:51] LABS: Glucose Point of Care 166 mg/dl (65-105)
--- NOTE | 2020-09-25 18:27 | PM.PNCARD ---
Progress Note: A&P Assessment and Plan (1) Elevated troponin: Code(s): R77.8 - Other specified abnormalities of plasma proteins Status: Acute Assessment and Plan: Patient has mildly elevated troponins as above. EKG does not show any acute ischemic changes. Doubt ACS. I suspect this is a type 2 CT related to the patient's CHF which caused hypoxia and tachycardia. (2) Acute on chronic diastolic heart failure: Code(s): I50.33 - Acute on chronic diastolic (congestive) heart failure Status: Acute Assessment and Plan: Patient demonstrates acute on chronic diastolic heart failure, related to her noncompliance with daily Lasix therapy. patient agrees to be more compliant with her furosemide. Improving w/ diuresis. Cont IV lasix. Daily BMP. (3) Paroxysmal atrial fibrillation: Code(s): I48.0 - Paroxysmal atrial fibrillation Status: Chronic Assessment and Plan: Patient has a history of paroxysmal atrial fibrillation status post ablation, paroxysmal atrial flutter and PSVT. Sees an supervisor brine. Has been on amiodarone since April. Complains of palpitations and tachycardia at home with heart rates up to 150s, unclear if this is sinus tach secondary to physiologic stress,or an atrial arrhythmia. We have not seen any atrial arrhythmias here. Continue amiodarone and Tele Follow H&H daily. I am hesitant to continue her Eliquis since she has required 2 units of blood in the last 2 months. Recommend Eliquis be held for 2 weeks at least and hopefully whatever lesion is bleeding will heal. Also discussed using the Watchman device instead of anticoagulation; that topic can be continued as an outpatient (4) Chronic anemia: Code(s): D64.9 - Anemia, unspecified Status: Chronic Assessment and Plan: Chronic anemia, status post a unit of blood today, and 1 unit of blood in June. GI evaluation apparently has been unremarkable. (5) COPD (chronic obstructive pulmonary disease): Qualifiers: COPD type: unspecified COPD Qualified Code(s): J44.9 - Chronic obstructive pulmonary disease, unspecified Code(s): J44.9 - Chronic obstructive pulmonary disease, unspecified Status: Chronic Assessment and Plan: History of severe lung disease, COPD, although EMR also suggested interstitial lung disease -- Perhaps for referring to the diffuse interstitial pattern seen on her chest x-rays thought to be CHF plus COPD. Unfortunately has required amiodarone to control atrial arrhythmias. I do not see any PFTs in our EMR. CT of the lungs 1 year ago showed severe COPD but no interstitial lung disease. On home O2 and CPAP Continue same Probably a good idea to get baseline PFTs and a thin slice CT of the lungs after discharge. Subjective Date/time seen: 09/25/20 18:27 Interval history: Follow-up for acute on chronic diastolic CHF probably due to noncompliance with furosemide. History of paroxysmal atrial fibrillation, status post ablation, and paroxysmal atrial flutter. Elevated troponin secondary to hypoxia and tachycardia. Chronic anemia. COPD. Followed by Dr. Farr. Date of service 09/25/2020: Diuresing some, Breathing a lot better, Able to walk to the bathroom without much difficulty.FOB positive, received 1 unit of pack cells. Echo as below showed EF 60-65% with diastolic dysfunction. Telemetry shows NSR. Review of Systems Constitutional: Constitutional: Reports no additional constitutional complaints Eyes: Eyes: Reports no additional eye complaints ENT: Denies epistaxis Cardiovascular: Cardiovascular: Denies chest pain, Denies pedal edema, Denies leg edema and Denies palpitations Respiratory: Respiratory: Denies dyspnea and Reports dys
[2020-09-25 20:50] LABS: Glucose Point of Care 123 mg/dl (65-105)
[2020-09-26] VITALS: BP 150/60; PULSE 76; PULSE 78; RESP 18; TEMP 36.1; O2SAT 100
[2020-09-26] MEDS: HYDROcodone/acetaminophen (*CRX) 5-325 MG TABLET 1 TAB PO (01:59)
[2020-09-26 03:25] VITALS: PULSE 75; O2SAT 96
[2020-09-26 04:00] VITALS: BP 128/56; PULSE 80; PULSE 85; RESP 18; TEMP 36.1; O2SAT 100
[2020-09-26 06:07] LABS: Basophils Absolute Auto 0.1 K/mm3 (0.0-0.1); Basophils Percent Auto 0.8 % (0.2-1.2); Eosinophils Absolute Auto 1.5 K/mm3 (0-0.3); Eosinophils Percent Auto 17.9 % (0-4.4); Hematocrit 27.6 % (37.0-47.0); Hemoglobin 8.1 g/dL (12.0-15.0); Immature Granulocyte Absolute 0.04 K/mm3 (0.00-0.031); Immature Granulocyte Percent A 0.5 % (0-0.5); Lymphocytes Absolute Auto 1.49 K/mm3 (0.9-3.2); Lymphocytes Percent Auto 18.1 % (18.3-44.2); Mean Corpuscular HGB Conc 29.3 g/dl (32-36); Mean Corpuscular Hemoglobin 25.2 pg (26-34); Mean Platelet Volume 10.3 fl (7.4-10.4); Monocytes Absolute Auto 0.6 K/mm3 (0.1-0.6); Monocytes Percent Auto 6.7 % (2.6-8.5); Neutrophils Absolute Auto 4.6 K/mm3 (1.3-6.7); Platelet Count Result 190 k/mm3 (150-375); Red Blood Count 3.21 M/mm3 (4.2-5.4); Red Cell Distribution Width 18.6 % (11.5-14.5); White Blood Count 8.3 K/mm3 (4.5-10.0)
[2020-09-26 06:18] LABS: Anion Gap 9 mmol/L (8-16); Blood Urea Nitrogen 35 mg/dL (7-17); Calcium 8.4 mg/dL (8.4-10.2); Carbon Dioxide 31 mmol/L (22-30); Chloride 96 mmol/L (98-107); Estimated CRCL calculation 28 ml/min; Estimated Glomerular Filt Rate 37; Glucose 194 mg/dL (65-110); Magnesium 1.7 mg/dL (1.6-2.3); Potassium 3.5 mmol/L (3.4-5.0); Sodium 136 mmol/L (137-145)
[2020-09-26 07:33] LABS: Glucose Point of Care 131 mg/dl (65-105)
[2020-09-26 08:00] VITALS: BP 150/68; PULSE 80; PULSE 93; RESP 18; TEMP 36; O2SAT 100
[2020-09-26 08:11] LABS: Hypochromasia 2+ (NORMAL); Platelet Estimate Adequate (Adequate)
[2020-09-26 08:18] VITALS: PULSE 85
[2020-09-26] MEDS: AMIODARONE HCL 200 MG TABLET PO (08:18)
[2020-09-26] MEDS: ASPIRIN 81 MG CHEWABLE TABLET PO (08:18)
[2020-09-26] MEDS: FUROSEMIDE INJ 40 MG/4 ML VIAL IV PUSH (08:19)
[2020-09-26] MEDS: SERTRALINE HCL 50 MG TABLET PO (08:19)
[2020-09-26] MEDS: ATORVASTATIN 10 MG TABLET PO (08:19)
[2020-09-26] MEDS: LOSARTAN POTASSIUM 50 MG TABLET PO (08:19)
[2020-09-26] MEDS: THERAPEUTIC MULTIVITAMINS/MINERALS TAB (*BKC) 1 TABLET PO (08:19)
[2020-09-26] MEDS: predniSONE 10 MG TABLET PO (08:19)
[2020-09-26] MEDS: MAGNESIUM OXIDE 400 MG TABLET PO (08:19)
[2020-09-26] MEDS: PANTOPRAZOLE 40 MG TABLET PO (08:19)
[2020-09-26] MEDS: ROFLUMILAST 500 MCG TABLET PO (08:19)
[2020-09-26] MEDS: FLUTICASONE/UMECLIDIN/VILANTER 100-62.5-25 MCG ELLIPTA 1 PUFF INHALATION (09:56)
--- NOTE | 2020-09-26 10:29 | PC.NURSE ---
On 09/26/20, the student, [Shandra Gregory], provided care and completed [facility] documentation on this patient. I have reviewed the student's documentation and agree with the findings.
[2020-09-26] MEDS: POTASSIUM CHLORIDE 20 MEQ TABLET.ER PO (10:31)
[2020-09-26 11:29] LABS: Glucose Point of Care 161 mg/dl (65-105)
[2020-09-26 12:00] VITALS: BP 124/55; PULSE 100; PULSE 109; RESP 18; TEMP 36.4; O2SAT 100
--- NOTE | 2020-09-26 14:35 | PM.PNCARD ---
Progress Note: A&P Additional Plan 70-year-old woman with: History of coronary artery disease and paroxysmal atrial fib. Currently in sinus rhythm and without ischemic symptoms following PCI done elsewhere. Patient was admitted with shortness of breath had some evidence of volume overload also evidence of relatively severe anemia. She has been diuresed with furosemide, given packed red blood cells for improvement in her hemoglobin level and systemic anticoagulation with apixaban has been stopped. I would agree that the risk of anticoagulation at this point is higher than the benefit. From my perspective she is stable for discharge at this time with ongoing follow-up in our office with Dr. Farr. Terrence Lr MD [facility] Subjective Date/time seen: Date of service:09/26/20 14:35 Interval history: Follow-up for acute on chronic diastolic CHF probably due to noncompliance with furosemide. History of paroxysmal atrial fibrillation, status post ablation, and paroxysmal atrial flutter. Elevated troponin secondary to hypoxia and tachycardia. Chronic anemia. COPD. Followed by Dr. Farr. Date of service 09/25/2020: Diuresing some, Breathing a lot better, Able to walk to the bathroom without much difficulty.FOB positive, received 1 unit of pack cells. Echo as below showed EF 60-65% with diastolic dysfunction. Telemetry shows NSR. Date of service 09/26/2020: Asymptomatic feeling well hoping to be discharged. Exam Narrative: Older female lying in bed, on her home CPAP, pleasant and in no distress Const: General: comfortable and no acute distress; No confusion Orientation/consciousness: No confusion HENMT: General nose exam: no epistaxis Eyes: EOM: EOMs intact bilaterally Neck: Neck: supple and no JVD Thyroid: thyroid normal Carotids: no bruits Lymphatic: lymphadenopathy not noted Resp: Auscultation: rales Other: No audible pulmonary rales currently Cardio: Rate: regular rate Rhythm: regular rhythm Heart sounds: no gallops and no murmurs Other: intact dorsalis pedis pulses GI: Inspection: non-distended Skin: General skin exam: normal color and no rashes or lesions noted Wounds: no wounds Neuro: General: No confusion Cognition (Neuro): normal cognition Speech: normal speech Motor exam (neuro): Normal motor muscle tone present throughout Extrem: General: no edema and no pedal edema Psych: Mental Status: mental status grossly normal Affect: normal affect Objective Data Vital Signs Vital Signs: Vital Signs - 24 hr 09/25/20 16:00 09/25/20 20:00 09/25/20 21:30 Temperature 36.8 C 36.0 C L Pulse Rate 114 H 94 Respiratory Rate 16 18 Blood Pressure 136/71 144/72 H Pulse Oximetry 100 98 100 09/25/20 22:40 09/26/20 00:00 09/26/20 03:25 Temperature 36.1 C L Pulse Rate 74 78 75 Respiratory Rate 18 Blood Pressure 150/60 H Pulse Oximetry 98 100 96 09/26/20 04:00 09/26/20 08:00 09/26/20 08:18 Temperature 36.1 C L 36.0 C L Pulse Rate 85 93 85 Respiratory Rate 18 18 Blood Pressure 128/56 L 150/68 H Pulse Oximetry 100 100 09/26/20 12:00 Temperature 36.4 C L Pulse Rate 109 H Respiratory Rate 18 Blood Pressure 124/55 L Pulse Oximetry 100 Intake/Output Intake/Output: Intake & Output 09/23/20 09/24/20 09/25/20 09/26/20 23:59 23:59 23:59 23:59 Intake Total 1200 760 540 Output Total 1000 1350 400 Balance 200 -590 140 Meds/Results Medications: Active Medications Generic Name Dose Route Start Last Admin Trade Name Belinda PRN Reason Stop Dose Admin Acetaminophen 650 mg 09/23/20 20:20 09/24/20 07:01 Acetaminophen 325 Mg Tablet PO 650 mg Q4H PRN Administration Mild Pain (1-3) Hydrocodone Bitart/Acetaminophen 1 tab 09/24/20 01:38 09/26/20 01:59 Hydrocodone/Acetaminophen (*Crx) 5-325 Mg Tablet PO 1 tab Q6H PRN Administration Pain 4-10 Al Hydrox/Mg Hydrox/Simethicone 30 ml 09/23/20 20:20 Mag Hydrox/Al Hydrox/
--- NOTE | 2020-09-26 15:26 | PM.DS ---
DS: Admitting Diagnosis Admitting Diagnosis CHF exacerbation DS: Discharge Diagnosis Discharge Diagnosis (1) Acute on chronic diastolic heart failure: Code(s): I50.33 - Acute on chronic diastolic (congestive) heart failure Status: Acute Assessment and Plan: Date of Admission 09/23/20 Date of Discharge 09/26/20 Ms. Andrade is a 70yo F with history of chronic respiratory failure on 5 L by nasal cannula at home, CHF, atrial fibrillation, hypertension, GERD, type 2 diabetes mellitus who presented to the ED for evaluation of shortness of breath. CXR demonstrated pulmonary edema and small pleural effusions. BNP was 4900 on arrival. She was admitted to the hospitalist service for management of acute on chronic CHF. She was diuresed with IV lasix and evaluated by cardiology. Poorly compliant with Lasix at home, takes a few times per week . Discussed the importance of medication compliance. She is noted to have chronic anemia with baseline hemoglobin around 8.0. Hgb as low as 6.8 on 09/25/20 and she received 1 unit packed RBC with lasix after transfusion. Her eliquis was discontinued at the recommendation of cardiology. She was feeling clinically improved and was hemodynamically stable for discharge 09/26/20. (2) Chronic anemia: Code(s): D64.9 - Anemia, unspecified Status: Chronic Assessment and Plan: Baseline Hgb appears around 8.0. Down to 6.8 09/25 and received 1 unit packed RBC. H&H remained low but stable thereafter. No signs or symptoms of acute bleeding at present. She recently underwent an EGD then subsequent capsule endoscopy in June by Dr Alvarado. described they hadn't heard results of the capsule study yet. I encouraged them to reach out to Dr Alvarado's office regarding these results. If no evidence of GI bleeding on the capsule study, recommend she may benefit from hematology evaluation. Eliquis discontinued by cardiology recommendation. (3) Elevated troponin: Code(s): R77.8 - Other specified abnormalities of plasma proteins Status: Acute Assessment and Plan: Suspect type 2 [place] likely related to atrial tachycardia and CHF. She is asymptomatic. Troponin peak at 0.054 with downward trend. Evaluated by Cardiology. EKG reviewed. Echocardiogram as above. (4) Paroxysmal atrial fibrillation: Code(s): I48.0 - Paroxysmal atrial fibrillation Status: Chronic Assessment and Plan: Maintained on home amiodarone. Eliquis discontinued as mentioned above. (5) HTN (hypertension) with goal to be determined: Code(s): I10 - Essential (primary) hypertension Status: Chronic Assessment and Plan: Stable maintained on home losartan. (6) CKD (chronic kidney disease): Qualifiers: Chronic kidney disease stage: unspecified stage Qualified Code(s): N18.9 - Chronic kidney disease, unspecified Code(s): N18.9 - Chronic kidney disease, unspecified Status: Chronic Assessment and Plan: Cr is elevated but near her baseline, repeat outpatient labs. (7) DM2 (diabetes mellitus, type 2): Qualifiers: Diabetes mellitus long term care pharmacist insulin use: without usp use Diabetes mellitus complication status: without complication Qualified Code(s): E11.9 - Type 2 diabetes mellitus without complications Code(s): E11.9 - Type 2 diabetes mellitus without complications Status: Chronic Assessment and Plan: Last A1c 6.5% in April. Metformin held and resumed at discharge. (8) Chronic respiratory failure with hypoxia: Code(s): J96.11 - Chronic respiratory failure with hypoxia Status: Chronic Assessment
== END 2020-09-26 16:05 | disposition home or self-care (01) | DRG 280 ==
LOC: ANHED 20:19 → ANHIMU 21:27 → ANH3MED 09-25 06:55 → ANHIMU 09-29 15:52
PROVIDERS: Emergency Medicine Emergency Medical Services; Internal Medicine Cardiovascular Disease; Physician Assistant; Admitting Provider Internal Medicine; Emergency Provider Emergency Medicine; PCP Family Medicine Sports Medicine; Visit Provider Physician Assistant
DX: I13.0 Hypertensive heart and chronic kidney disease with heart failure and stage 1 through stage 4 chronic kidney disease, or unspecified chronic kidney disease (principal); I50.33 Acute on chronic diastolic (congestive) heart failure; I21.A1 Myocardial infarction type 2; J96.11 Chronic respiratory failure with hypoxia; J44.1 Chronic obstructive pulmonary disease with (acute) exacerbation; D64.9 Anemia, unspecified; N18.9 Chronic kidney disease, unspecified; E11.22 Type 2 diabetes mellitus with diabetic chronic kidney disease; G47.33 Obstructive sleep apnea (adult) (pediatric); M15.9 Polyosteoarthritis, unspecified; I48.0 Paroxysmal atrial fibrillation; F41.9 Anxiety disorder, unspecified; I25.10 Atherosclerotic heart disease of native coronary artery without angina pectoris; K21.9 Gastro-esophageal reflux disease without esophagitis; E78.5 Hyperlipidemia, unspecified; K58.9 Irritable bowel syndrome, unspecified; E11.42 Type 2 diabetes mellitus with diabetic polyneuropathy; R91.8 Other nonspecific abnormal finding of lung field; M06.9 Rheumatoid arthritis, unspecified; F32.9 Major depressive disorder, single episode, unspecified; M81.0 Age-related osteoporosis without current pathological fracture; Z99.81 Dependence on supplemental oxygen; I25.2 Old myocardial infarction; Z87.442 Personal history of urinary calculi; Z95.5 Presence of coronary angioplasty implant and graft; Z98.42 Cataract extraction status, left eye; Z98.41 Cataract extraction status, right eye; Z90.710 Acquired absence of both cervix and uterus; Z90.49 Acquired absence of other specified parts of digestive tract; Z87.891 Personal history of nicotine dependence
CPT/HCPCS: 36415; 36430; 36600; 71046; 80048; 80061; 82274; 82375; 82805; 82948; 83050; 83735; 83880; 84484; 85014; 85018; 85025; 85027; 85610; 85730; 86850; 86900; 86901; 86920; 93005; 93306; 94640; 96374; 97161; 97165; 99285; A9270; G0378; J1940; J7050; J7512; P9016

== ENCOUNTER 2020-09-29 15:19 | Outpatient (CLI) | payer MEDICARE, SELFPAY ==
[2020-09-29 15:52] LABS: Basophils Absolute Auto 0.1 K/mm3 (0.0-0.1); Basophils Percent Auto 0.7 % (0.2-1.2); Eosinophils Absolute Auto 2.1 K/mm3 (0-0.3); Eosinophils Percent Auto 20.7 % (0-4.4); Hematocrit 29.8 % (37.0-47.0); Immature Granulocyte Absolute 0.05 K/mm3 (0.00-0.031); Immature Granulocyte Percent A 0.5 % (0-0.5); Lymphocytes Absolute Auto 1.05 K/mm3 (0.9-3.2); Lymphocytes Percent Auto 10.5 % (18.3-44.2); Mean Corpuscular HGB Conc 30.2 g/dl (32-36); Mean Corpuscular Hemoglobin 25.9 pg (26-34); Mean Corpuscular Volume 85.9 fl (80-100); Mean Platelet Volume 10.3 fl (7.4-10.4); Monocytes Absolute Auto 0.5 K/mm3 (0.1-0.6); Monocytes Percent Auto 5.1 % (2.6-8.5); Neutrophils Absolute Auto 6.2 K/mm3 (1.3-6.7); Neutrophils Percent Auto 62.5 % (45.5-73.1); Platelet Count Result 243 k/mm3 (150-375); Red Blood Count 3.47 M/mm3 (4.2-5.4)
[2020-09-29 16:23] LABS: Anion Gap 9 mmol/L (8-16); Blood Urea Nitrogen 34 mg/dL (7-17); Carbon Dioxide 28 mmol/L (22-30); Chloride 101 mmol/L (98-107); Estimated Glomerular Filt Rate 32; Glucose 133 mg/dL (65-110); Potassium 5.1 mmol/L (3.4-5.0); Sodium 138 mmol/L (137-145)
== END 2020-09-29 15:20 | disposition home or self-care (01) ==
PROVIDERS: PCP Family Medicine Sports Medicine; Visit Provider Physician Assistant
DX: N18.9 Chronic kidney disease, unspecified (principal); D64.9 Anemia, unspecified
CPT/HCPCS: 36415; 80048; 85025

== ENCOUNTER 2020-11-05 15:42 | Outpatient (CLI) | payer MEDICARE, SELFPAY ==
--- NOTE | ~2020-11-05 | XR_ITS ---
EXAMINATION: XR lumbar spine 2-3V DATE: 11/05/2020 16:25 INDICATION: Back pain after fall TECHNIQUE: Anteroposterior and lateral views of the lumbar spine, and cone-down lateral view of the l umbosacral junction were obtained. COMPARISON: CT, 11/08/2019 FINDINGS: The lumbar vertebral body heights, alignment, and intervertebral disc spaces are normal. Th ere is mild facet osteoarthritis of the lower lumbar spine. Small degenerative osteophytes project fr om the anterior endplates of multiple vertebral bodies. There is anterior cortical irregularity at th e level of the S3 and S4 segments. Calcified atherosclerosis is noted. Surgical clips in the right up per quadrant are likely from prior cholecystectomy. IMPRESSION: 1. Possible sacral fracture. 2. Mild lumbar spondylosis without acute findings or significant interval change. Reviewed, dictated and finalized at location B. IMPRESSION: 1. Possible sacral fracture. 2. Mild lumbar spondylosis without acute findings or significant interval alonzo e.
--- NOTE | ~2020-11-05 | XR_ITS ---
XR hip BI 2V w AP pelvis 11/05/2020 16:25 Indication: Status post fall. Hip pain. Procedure: AP pelvis and 2 views each hip Comparison: 01/04/2020 Findings: There is a healed right femoral intertrochanteric fracture. There is mild osteoarthritis of the hips. Pelvic rings are intact. Extensive vascular calcifications. No acute fracture is identifie d. Impression: 1: No acute bone or joint abnormality. 2: Healed right femoral intertrochanteric fracture. Reviewed, dictated and finalized at location A. Impression: 1: No acute bone or joint abnormality. 2: Healed right femoral intertrochanteric fracture.
== END 2020-11-05 15:43 | disposition home or self-care (01) ==
LOC: ANHIMG 15:49
PROVIDERS: PCP Family Medicine Sports Medicine; Visit Provider Internal Medicine
DX: S79.911A Unspecified injury of right hip, initial encounter (principal); M47.816 Spondylosis without myelopathy or radiculopathy, lumbar region; Z87.81 Personal history of (healed) traumatic fracture
CPT/HCPCS: 72100; 73521

== ENCOUNTER 2020-12-12 06:09 | Observation (INO) | payer MEDICARE, SELFPAY ==
[2020-12-12] VITALS (14 sets, daily range): BP systolic 156–213; BP diastolic 77–139; PULSE 71–102; RESP 15–27; TEMP 36.5–36.9; O2SAT 92–100; BMI 24.1
--- NOTE | ~2020-12-12 | XR_ITS ---
XR chest 2V DATE: 12/12/2020 07:04 INDICATION: Chest pain TECHNIQUE: 2 views COMPARISON: 09/23/2020 2 view chest FINDINGS: There is bilateral pulmonary hyperinflation suggesting COPD. Minimal infiltrate or atelectasis is suggested at the lung bases. Borderline heart size. Is aortic calcification and mild tortuosity. No hilar or mediastinal enlargeme nt. No pleural effusion or pneumothorax. Diffuse osteopenia. IMPRESSION: Bilateral hyperinflation consistent with COPD Borderline heart size Aortic atherosclerosis Minimal infiltrate or atelectasis at the lung bases Osteopenia Reviewed, dictated and finalized at location A.
--- NOTE | ~2020-12-12 | CT_ITS ---
EXAMINATION: CT abdomen pelvis wo con DATE: 12/12/2020 07:39 INDICATION: Upper abdominal pain, nausea and vomiting TECHNIQUE: Computed tomography (CT) of the abdomen and pelvis was performed without intravenous contr ast. Automated exposure control and iterative reconstruction technique were employed. Exam dose: 311 .68 mGy-cm total exam DLP. COMPARISON: None. FINDINGS: There is patchy groundglass density in the lung bases and evidence of COPD. Mild cardiomegaly. No pericardial or pleural effusion. Status post cholecystectomy. No hepatic, splenic, pancreatic, adrenal or renal space-occupying mass lesion is evident on this limi xochitl noncontrast examination. There are multiple calcifications of the kidneys which appear to be largely arterial. No ureteral husam culus or hydroureteronephrosis is evident. The urinary bladder is unremarkable. Status post hysterectomy. Normal appendix. Minimal sigmoid diverticulosis; no CT evidence of diverticulitis. No bowel obstructi on, bowel wall thickening, pneumatosis or intraperitoneal free air. There is extensive calcification of the abdominal aorta and iliac and femoral arteries. There is exte nsive calcification of the renal arteries as well as prominent calcification of the celiac and mesent alma arteries. There is some shoddy nonenlarged periaortic and aortocaval lymph nodes. No suspicious osteolytic or osteoblastic lesions. IMPRESSION: COPD, patchy groundglass density in the lower lung zones Mild cardiomegaly Status post cholecystectomy Extensive calcification of the abdominal aorta, renal arteries, celiac and mesenteric arteries, iliac and femoral arteries Normal appendix Minimal sigmoid diverticulosis Reviewed, dictated and finalized at Location [facility]. Reviewed, dictated and finalized at location A. IMPRESSION: COPD, patchy groundglass density in the lower lung zones Mild cardiomegaly Status post cholecystectomy Extensive calcification of the abdominal aorta, renal arteries, celiac and mese nteric arteries, iliac and femoral arteries Normal appendix Minimal sigmoid diverticulosis
--- NOTE | 2020-12-12 06:16 | ECG_ITS ---
Measurements Intervals [place] Rate: 91 P: 60 MD: 157 QRS: -38 QRSD: 121 T: 88 QT: 390 QTc: 480 Interpretive Statements SINUS RHYTHM LEFT ATRIAL ENLARGEMENT LEFT AXIS DEVIATION INTRAVENTRICULAR CONDUCTION DELAY BORDERLINE ST-T WAVE ABNORMALITY- HIGH LATERAL LEADS BORDERLINE ECG Electronically Signed On 12-12-2020 11:21:38 CDT by Joshua Bennett D.O.
[2020-12-12 07:11] LABS: Basophils Percent Auto 0.6 % (0.2-1.2); Eosinophils Absolute Auto 0.3 K/mm3 (0-0.3); Eosinophils Percent Auto 5.9 % (0-4.4); Hematocrit 32.1 % (37.0-47.0); Hemoglobin 9.6 g/dL (12.0-15.0); Immature Granulocyte Absolute 0.01 K/mm3 (0.00-0.031); Immature Granulocyte Percent A 0.2 % (0-0.5); Lymphocytes Absolute Auto 0.78 K/mm3 (0.9-3.2); Lymphocytes Percent Auto 15.3 % (18.3-44.2); Mean Corpuscular HGB Conc 29.9 g/dl (32-36); Mean Corpuscular Hemoglobin 24.7 pg (26-34); Mean Corpuscular Volume 82.5 fl (80-100); Mean Platelet Volume 10.8 fl (7.4-10.4); Monocytes Absolute Auto 0.5 K/mm3 (0.1-0.6); Monocytes Percent Auto 8.8 % (2.6-8.5); Neutrophils Absolute Auto 3.5 K/mm3 (1.3-6.7); Neutrophils Percent Auto 69.2 % (45.5-73.1); Platelet Count Result 175 k/mm3 (150-375); Red Blood Count 3.89 M/mm3 (4.2-5.4); Red Cell Distribution Width 14.9 % (11.5-14.5); White Blood Count 5.1 K/mm3 (4.5-10.0)
[2020-12-12 07:33] LABS: Anion Gap 7 mmol/L (8-16); Blood Urea Nitrogen 23 mg/dL (7-17); Calcium 9.4 mg/dL (8.4-10.2); Carbon Dioxide 37 mmol/L (22-30); Chloride 97 mmol/L (98-107); Estimated CRCL calculation 32 ml/min; Estimated Glomerular Filt Rate 44; Glucose 236 mg/dL (65-110); Potassium 3.4 mmol/L (3.4-5.0); Sodium 141 mmol/L (137-145)
[2020-12-12 07:36] LABS: Prothrombin Time 13.1 Seconds (11.1-14.7)
[2020-12-12 07:37] LABS: Partial Thromboplastin Time 26.9 SECONDS (22.3-36.8)
[2020-12-12 07:49] LABS: Lipase 137 U/L (23-300)
--- NOTE | 2020-12-12 07:51 | ED.CHESTPAIN ---
HPI - Chest Pain General Chief Complaint: Chest Pain Stated Complaint: N/V/D, abdominal pain, chest pain Time Seen by Provider: 12/12/20 06:57 Source: patient History of Present Illness HPI narrative: Patient presents with upper abdominal pain, symptoms started last night woke her from sleep associated with nausea and vomiting. Pain is achy, constant, no radiation, no clear aggravating or alleviating factors. She also reports she has had increased shortness of breath over the past couple weeks. She denies cough, fever she denies any diarrhea she denies any urinary symptoms Related Data Home Medications Medication Instructions Recorded Confirmed metformin 500 mg PO BID 08/26/19 12/11/20 losartan 50 mg PO DAILY 11/08/19 12/11/20 alendronate 70 mg tablet 70 mg PO WEEKLY 05/09/20 12/11/20 sertraline 50 mg tablet 50 mg PO DAILY 05/09/20 12/11/20 oxymetazoline [12 Hour Nasal [place]] 2 spray INTRANASAL Q12H PRN 07/11/20 12/11/20 albuterol sulfate 2.5 mg INHALATION Q6H PRN 07/12/20 12/11/20 amiodarone 200 mg PO DAILY 07/12/20 12/11/20 aspirin 81 mg PO DAILY 07/12/20 12/11/20 atorvastatin 10 mg PO DAILY 07/12/20 12/11/20 econazole 1 applic TOPICAL BID PRN 07/12/20 12/11/20 furosemide 20 mg PO DAILY 07/12/20 12/11/20 Daliresp 500 mcg PO DAILY 09/24/20 12/11/20 albuterol 180 mcg INHALATION Q6H PRN 09/24/20 12/11/20 Allergies Allergy/AdvReac Type Severity Reaction Status Date / Time morphine Allergy Intermediate Itching Verified 12/11/20 14:04 pregabalin Allergy Intermediate Itching Verified 12/11/20 14:04 Review of Systems Review of Systems: CONSTITUTIONAL: Denies fever, chills, or sweats. EYES: Denies visual changes, redness, or discharge. ENT: Denies rhinorrhea, congestion, sore throat, or otalgia. CARDIOVASCULAR: Denies chest pain, palpitations, or edema. RESPIRATORY: Reports shortness of breath GASTROINTESTINAL: Reports abdominal pain nausea and vomiting GENITOURINARY: Denies dysuria or hematuria. SKIN: Denies rash or itching. MUSCULOSKELETAL: Denies back pain, joint pain, or myalgia. NEUROLOGIC: Denies headache, numbness, dizziness, or weakness. PSYCHIATRIC: Denies anxiety or depression. All systems reviewed & are unremarkable except as noted in HPI and below PMFSH Past Medical History Medical History A-fib With an ablation and paroxysmal Acute on chronic blood loss anemia Anxiety Arthritis CAD (coronary artery disease) s/p 3 stents (mid LAD, mid CX, mid RCA) after Non STEMI May 201706/2019: Stent to the distal RCA, POBA PDA Chronic anemia Chronic respiratory failure with hypoxia Chronically on oxygen at 5 L per nasal cannula. Closed intertrochanteric fracture of right hip Treated non operatively October 2019 Congestive heart failure Diastolic with most recent echocardiogram January 2019 demonstrating paradoxical septal motion consistent with right ventricular volume overload or elevated right ventricular end-diastolic pressure, EF 60-65%, mildly increased left ventricular wall thickness, grade 1 diastolic dysfunction, severely reduced right ventricular systolic function, severely enlarged right ventricular chamber, severely enlarged right atrial chamber, [id number] mitral valve regurgitation, trace tricuspid regurgitation, mild pulmonary hypertension with RVSP of 46 COPD (chronic obstructive pulmonary disease) Depression DM2 (diabetes mellitus, type 2) Fall against object Generalized osteoarthritis of multiple sites GERD (gastroesophageal reflux disease) Heart attack Heart disease History of kidney stones HTN (hypertension) Hyperlipidemia Hypomagnesemia Irritable bowel 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
[2020-12-12 07:52] LABS: Troponin I 0.043 ng/mL (0.000-0.034)
[2020-12-12] MEDS: ONDANSETRON INJ 4 MG/2 ML VIAL IV PUSH (07:56)
--- NOTE | 2020-12-12 08:04 | PC.NURSE ---
EDP made aware of pts blood pressure
[2020-12-12] MEDS: LOSARTAN POTASSIUM 50 MG TABLET PO ×2 (08:24→23:19)
[2020-12-12] MEDS: ASPIRIN 81 MG CHEWABLE TABLET 324 MG PO (08:24)
[2020-12-12 09:13] LABS: Atypical Lymphocytes Present; Hypochromasia 1+ (NORMAL); Platelet Estimate Adequate (Adequate)
[2020-12-12 09:15] LABS: Anisocytosis 1+ (NORMAL)
[2020-12-12] MEDS: HEPARIN SOD/D5W 100 UNITS/ML 25,000 UNITS/250 ML BAG 7 UNITS IV CONT (09:16)
[2020-12-12 09:54] LABS: NT Pro B Type Natriuretic Pept 4110 pg/mL (5-100)
[2020-12-12 12:39] LABS: Troponin I 0.052 ng/mL (0.000-0.034)
--- NOTE | 2020-12-12 12:51 | PC.NURSE ---
Pt is upset that roommate is post Covid . Explained to pt that unfortunately there is no way to know who has COVID and who doesn't and that we do our best to separate. Informed charge nurse of this. PT is POST covid
--- NOTE | 2020-12-12 13:00 | PM.IMHP ---
H&P: HPI History of Present Illness Date/Time: 12/12/20 13:00 Chief Complaint: Epigastric/chest pain. Narrative: This is a 70-year-old female with coronary artery disease, end-stage COPD with chronic respiratory failure on home oxygen, diastolic congestive heart failure, hypertension, type 2 diabetes mellitus, rheumatoid arthritis, and several other comorbidities who presented to the emergency department earlier today from home for evaluation of epigastric/chest pain. She felt in her usual state of health yesterday and in fact had a routine doctor's appointment during the afternoon. Thereafter she and her went to [facility] for dinner where she ate breakfast food. Later that evening she retired to bed however was wakened from sleep at around midnight with severe nausea and a ?squeezing? discomfort in her epigastrium radiating up into the chest. She proceeded to have 5 episodes of emesis which she describes as yellow and a bit mucousy; no food particles were noted. Her symptoms persisted throughout the rest of the night and she decided to come in today for evaluation as they are somewhat similar to though she experienced with her previous MRI though less intense. On arrival to the emergency department she was found to have an elevated troponin and she is being admitted in this setting. At the time my evaluation she feels a bit better though continues to have mild nausea however she was able to eat half of her meal. She has not had any overt chest pain since admission. She has not any more short of breath than her baseline. Her has not had similar symptoms however he did eat a different meal than she did. She denies abdominal distention, bloating, and belching. No hematemesis, melena, or hematochezia. Review of Systems Review of Systems: Twelve systems were reviewed. No fever, chills, or sweats. No syncope or near syncope. No recent cold or flu symptoms. She denies sick contacts. No orthopnea, PND, or current lower extremity edema. She goes on to say that she has had intermittent edema of her legs for the past 1 month. She has also noticed burning sensation in her calves with ambulation that improved with rest. Except as documented all other systems were reviewed and are negative. REPLACED BY [facility] Past Medical History Medical History (Updated 12/12/20 @ 22:05 by Kitty Dhaliwal PA-C) Anxiety Arthritis Chronic anemia Chronic kidney disease, stage 3 Chronic obstructive pulmonary disease Chronic respiratory failure with hypoxia Chronically on oxygen at 4 - 5 L per nasal cannula. Closed intertrochanteric fracture of right hip (10/2019) Treated non operatively. Congestive heart failure Diastolic with most recent echocardiogram January 2019 demonstrating paradoxical septal motion consistent with right ventricular volume overload or elevated right ventricular end-diastolic pressure, EF 60-65%, mildly increased left ventricular wall thickness, grade 1 diastolic dysfunction, severely reduced right ventricular systolic function, severely enlarged right ventricular chamber, severely enlarged right atrial chamber, [id number] mitral valve regurgitation, trace tricuspid regurgitation, mild pulmonary hypertension with RVSP of 46 Coronary artery disease May 2017: stent x3 to the mid LAD, mid circumflex, and mid RCA. Deemed not to be an operable candidate due to severity of underlying lung disease. 06/2019: stent to the distal RCA, angioplasty to PDA. Depression Gastroesophageal reflux disease Generalized osteoarthritis of multiple sites Hyperlipidemia Hyperlipidemia Hypertension Irritable bowel syndrome Kidney stone [facility] systemic steroid user Obstructive sleep apnea With last sleep study March 2019 recommending auto bilevel with 5 L of oxygen. Paroxysmal atrial fibrillation Paroxysmal supraventricular tachycardia (02/2018) Status post cardiac ablation per Dr. Alvares. Peripheral arterial disease Extensive calcification of the abdominal aorta,
[2020-12-12 13:14] LABS: Troponin I 0.054 ng/mL (0.000-0.034)
[2020-12-12] MEDS: HYDROcodone/acetaminophen (*CRX) 5-325 MG TABLET 1 TAB PO (14:06)
--- NOTE | 2020-12-12 14:59 | ADMGEN ---
This patient, Piedad Andrade, was admitted to IMU Room 200-01 at 1458. Patient/family oriented to hospital policies and general routines including ID bracelet, bed and alarms, visiting hours, pain management, procedures, bathroom and other care routines, personal items, smoking policy, room service/diet, and visiting hours. Information on how to activate the Rapid Response Team has been discussed. Patient/Family are encouraged to report perceived risks to care and to ask questions if they do not understand what they are told or what they should do.
--- NOTE | 2020-12-12 15:53 | PM.CNCAR ---
Assessment and Plan Additional Plan 70-year-old woman with: Severe multivessel coronary disease with percutaneous revascularization of all of her coronary arteries when she was deemed not an operable candidate because of severity of underlying lung disease back in 2018. He enters the hospital now with vomiting that was going on all night. I do not really get any history that sounds like unstable ischemic chest pain and her ECG and biomarkers do not suggest evidence of an acute coronary syndrome. As I mentioned in my note above for low-level troponin level is flat and is in my opinion due to her underlying lung disease and pulmonary hypertension which was also seen a couple of months ago when she was in the hospital. Even if the patient did have obvious evidence of an acute coronary syndrome from her comments to me this afternoon she does not wish to have any more aggressive procedures at this time. Along those lines I would continue her cardiac medical regimen and discontinue her intravenous heparin infusion at this time. We will follow her with you but at this time I do not have any additional cardiac recommendations. Terrence Lr MD [facility] History of Present Illness History of Present Illness Consult date/time: 12/12/20 15:53 Reason For Visit: nstemi Narrative: This is a very pleasant 70-year-old lady who was well-known to Dr. Farr of our practice. I am seeing her this afternoon at the request of the hospitalist because of elevated troponin level which appears to have resulted in the diagnosis of non ST elevation [place] being placed on her chart. the patient is room in room 200 in the IMU and appears to be relatively comfortable at this time. She came to the emergency room earlier today because of symptoms of nausea and vomiting. She states this began about midnight last night and she was up the entire night vomiting repeatedly. She describes vomiting of clear somewhat bilious material there was not any coffee-ground or hematemesis. She was seen and evaluated in the emergency room. I believe she was given antiemetic therapy which appears to have helped her with the nausea and vomiting she Is not reporting any other symptoms at this time. The patient has a history of severe multivessel coronary artery disease as well as a history of severe what is now felt to be end-stage COPD with evidence of pulmonary hypertension from that. She is not having any symptoms of chest pain pressure or heaviness in an unstable fashion. She has ECG that does not show any acute changes and her biomarkers are flat with troponin level of 0.05 with no rise and fall. Troponin levels during a recent hospitalization here in August of this year were the same. Her history of heart disease dates back to 2018 she came to [facility] with squeezing pressure-like anterior chest pain. She was brought for catheterization and found to have severe triple-vessel coronary disease with complete occlusion of the proximal portion of her RCA. She also had high-grade disease in the mid LAD and in the mid circumflex. She was brought [facility] where she was evaluated by Cardiothoracic surgery and felt to be not a surgical candidate because of her lung disease. Because of that she underwent aggressive multivessel percutaneous revascularization stenting all of her vessels and restoring flow. Since then has had a series of other visits to the emergency room hospitalizations which of course, the trigger concern regarding her cardiac status. She was found to have a progressive stenosis in her distal RCA that was treated interventionally with another stent in 2019. She also has a history of SVT with difficulty treating this medically and was underwent an ablation procedure by an EP customer experience consultant at [facility]. 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
[2020-12-12 15:54] LABS: Partial Thromboplastin Time 34.9 SECONDS (22.3-36.8)
[2020-12-13] VITALS (7 sets, daily range): BP systolic 170–189; BP diastolic 83–87; PULSE 81–109; RESP 16–22; TEMP 36.1–36.6; O2SAT 98–100
[2020-12-13 05:22] LABS: Basophils Percent Auto 0.9 % (0.2-1.2); Eosinophils Absolute Auto 0.4 K/mm3 (0-0.3); Eosinophils Percent Auto 10.2 % (0-4.4); Hematocrit 30.9 % (37.0-47.0); Hemoglobin 9.3 g/dL (12.0-15.0); Immature Granulocyte Absolute 0.01 K/mm3 (0.00-0.031); Immature Granulocyte Percent A 0.2 % (0-0.5); Lymphocytes Absolute Auto 0.95 K/mm3 (0.9-3.2); Lymphocytes Percent Auto 22.1 % (18.3-44.2); Mean Corpuscular HGB Conc 30.1 g/dl (32-36); Mean Corpuscular Hemoglobin 24.5 pg (26-34); Mean Corpuscular Volume 81.5 fl (80-100); Mean Platelet Volume 9.7 fl (7.4-10.4); Monocytes Absolute Auto 0.5 K/mm3 (0.1-0.6); Monocytes Percent Auto 10.7 % (2.6-8.5); Neutrophils Absolute Auto 2.4 K/mm3 (1.3-6.7); Neutrophils Percent Auto 55.9 % (45.5-73.1); Platelet Count Result 131 k/mm3 (150-375); Red Blood Count 3.79 M/mm3 (4.2-5.4); Red Cell Distribution Width 14.7 % (11.5-14.5); White Blood Count 4.3 K/mm3 (4.5-10.0)
[2020-12-13 05:37] LABS: Alanine Aminotransferase 16 U/L (4-35); Albumin Level 3.5 g/dL (3.5-5.1); Alkaline Phosphatase 83 U/L (38-126); Anion Gap 6 mmol/L (8-16); Aspartate Amino Transferase 27 U/L (14-36); Bilirubin,Total 0.7 mg/dL (0.2-1.3); Blood Urea Nitrogen 22 mg/dL (7-17); Calcium 8.9 mg/dL (8.4-10.2); Carbon Dioxide 34 mmol/L (22-30); Chloride 97 mmol/L (98-107); Estimated CRCL calculation 37 ml/min; Estimated Glomerular Filt Rate 49; Glucose 143 mg/dL (65-110); Magnesium 1.6 mg/dL (1.6-2.3); Potassium 3.4 mmol/L (3.4-5.0); Sodium 137 mmol/L (137-145)
--- NOTE | 2020-12-13 06:00 | ECG_ITS ---
Measurements Intervals [place] Rate: 91 P: 59 OK: 151 QRS: -37 QRSD: 111 T: 69 QT: 381 QTc: 469 Interpretive Statements SINUS RHYTHM ATRIAL PREMATURE COMPLEX LEFT ATRIAL ENLARGEMENT LEFT AXIS DEVIATION INTRAVENTRICULAR CONDUCTION DELAY CANNOT RULE OUT SEPTAL INFARCT, AGE INDETERMINATE BORDERLINE ST-T WAVE ABNORMALITY- LAT/HIGH LAT LEADS BASELINE WANDER- I, II ABNORMAL ECG Electronically Signed On 12-13-2020 8:14:23 CDT by Joshua Bennett D.O.
--- NOTE | 2020-12-13 09:13 | PM.IMPN ---
Progress Note: A&P Assessment and Plan (1) Epigastric discomfort: Code(s): R10.13 - Epigastric pain Status: Acute (2) Elevated troponin: Code(s): R77.8 - Other specified abnormalities of plasma proteins Status: Acute (3) Peripheral arterial disease: Code(s): I73.9 - Peripheral vascular disease, unspecified Status: Acute (4) Chronic kidney disease, stage 3: Code(s): N18.30 - Chronic kidney disease, stage 3 unspecified Status: Acute (5) Chronic anemia: Code(s): D64.9 - Anemia, unspecified Status: Chronic (6) Coronary artery disease: Code(s): I25.10 - Atherosclerotic heart disease of [place] coronary artery without angina pectoris Status: Acute (7) Paroxysmal atrial fibrillation: Code(s): I48.0 - Paroxysmal atrial fibrillation Status: Acute (8) Chronic obstructive pulmonary disease: Code(s): J44.9 - Chronic obstructive pulmonary disease, unspecified Status: Acute (9) Chronic respiratory failure with hypoxia: Code(s): J96.11 - Chronic respiratory failure with hypoxia Status: Chronic (10) Claudication: Code(s): I73.9 - Peripheral vascular disease, unspecified Status: Acute (11) Type 2 diabetes mellitus: Code(s): E11.9 - Type 2 diabetes mellitus without complications Status: Acute Additional Plan This is a 70-year-old female with history of coronary artery disease, history of COPD with chronic respiratory failure on home oxygen, diastolic congestive heart failure, hypertension, type 2 diabetes mellitus, rheumatoid arthritis, presents to the ER with epigastric/chest pain. Issue she did nausea and multiple episodes of emesis prior to arrival. # Chest discomfort/epigastric pain likely GI in etiology incidentally found to have elevated troponin. EKG with nonspecific ST-T changes which are unchanged from previous EKG. Initial troponin 0.043 followed by 0.052 and 0.054 with flat trajectory. History of severe multivessel coronary artery disease percutaneous revascularization of for all coronary arteries in the past previously deemed non operable in 2018 due to severity of her underlying lung disease. Cardiology has been consulted and following. Continue aspirin apixaban BNP elevated 4110 similar to previous levels Lipase level normal LFTs normal Chest x-ray with COPD changes and minimal infiltrate or atelectasis at the lung base CT abdomen with patchy ground-glass opacities in the lower lung zones otherwise no acute abdominal pathology is noted # severe COPD # severe multivessel coronary artery disease status post PCI previously deemed nonoperable in 1018 # hypertension uncontrolled on admission # diabetes mellitus type 2 on metformin at home which will be held during hospital stay. SSI added continue Accu-Cheks and hypoglycemia protocol # peripheral vascular disease with extensive calcification of abdominal aorta, renal arteries, celiac and mesenteric arteries, iliac and femoral arteries. Past chronic respiratory failure on home oxygen 24 x 7 Last time approximately fibrillation on apixaban and amiodarone # hyper hyperlipidemia on atorvastatin # chronic kidney disease stage 3 baseline creatinine 1.2-1.3 currently at baseline # elevated troponin see above # chronic anemia hemoglobin at 9.6 on admission which is about baseline for her # JOAQUIN on CPAP # peripheral neuropathy # history of rheumatoid arthritis previous positive CCP antibody and rheumatoid arthritis factor # DVT prophylaxis on apixaban # full code status Subjective Date/time seen: 12/13/20 09:13 Interval history: HPI:This is a 70-year-old female with coronary artery disease, end-stage COPD with chronic respiratory failure on home oxygen, diastolic congestive heart failure, hypertension, type 2 diabetes mellitus, rheumatoid arthritis, and several other comorbidities who presented to the emergency department earlier today from home for evaluation
[2020-12-13 09:24] LABS: Glucose Point of Care 131 mg/dl (65-105)
[2020-12-13] MEDS: ASPIRIN 81 MG ENTERIC TABLET PO (09:29)
[2020-12-13] MEDS: LOSARTAN POTASSIUM 50 MG TABLET PO (09:29)
[2020-12-13] MEDS: THERAPEUTIC MULTIVITAMINS/MINERALS TAB (*BKC) 1 TABLET PO (09:29)
[2020-12-13] MEDS: ROFLUMILAST 500 MCG TABLET PO (09:29)
[2020-12-13] MEDS: ATORVASTATIN 20 MG TABLET PO (09:29)
[2020-12-13] MEDS: FUROSEMIDE 40 MG TABLET PO (09:30)
[2020-12-13] MEDS: HYDROcodone/acetaminophen (*CRX) 5-325 MG TABLET 1 TAB PO (09:30)
[2020-12-13] MEDS: AMIODARONE HCL 200 MG TABLET PO (09:31)
[2020-12-13] MEDS: SERTRALINE HCL 50 MG TABLET PO (09:32)
--- NOTE | 2020-12-13 09:40 | PM.DS ---
DS: Admitting Diagnosis Discharge Date 12/13/2020 Admitting Diagnosis Chest pain nausea vomiting DS: Discharge Diagnosis Discharge Diagnosis (1) Epigastric discomfort: Code(s): R10.13 - Epigastric pain Status: Acute (2) Elevated troponin: Code(s): R77.8 - Other specified abnormalities of plasma proteins Status: Acute (3) Peripheral arterial disease: Code(s): I73.9 - Peripheral vascular disease, unspecified Status: Acute (4) Chronic kidney disease, stage 3: Code(s): N18.30 - Chronic kidney disease, stage 3 unspecified Status: Acute (5) Chronic anemia: Code(s): D64.9 - Anemia, unspecified Status: Chronic (6) Coronary artery disease: Code(s): I25.10 - Atherosclerotic heart disease of [place] coronary artery without angina pectoris Status: Acute (7) Paroxysmal atrial fibrillation: Code(s): I48.0 - Paroxysmal atrial fibrillation Status: Acute (8) Chronic obstructive pulmonary disease: Code(s): J44.9 - Chronic obstructive pulmonary disease, unspecified Status: Acute (9) Chronic respiratory failure with hypoxia: Code(s): J96.11 - Chronic respiratory failure with hypoxia Status: Chronic (10) Claudication: Code(s): I73.9 - Peripheral vascular disease, unspecified Status: Acute (11) Type 2 diabetes mellitus: Code(s): E11.9 - Type 2 diabetes mellitus without complications Status: Acute DS: Summary Hospital Course Hospital Course: This is a 70-year-old female with history of coronary artery disease, history of COPD with chronic respiratory failure on home oxygen, diastolic congestive heart failure, hypertension, type 2 diabetes mellitus, rheumatoid arthritis, presents to the ER with epigastric/chest pain. Issue she did nausea and multiple episodes of emesis prior to arrival. # Chest discomfort/epigastric pain likely GI in etiology incidentally found to have elevated troponin. EKG with nonspecific ST-T changes which are unchanged from previous EKG. Initial troponin 0.043 followed by 0.052 and 0.054 with flat trajectory. History of severe multivessel coronary artery disease percutaneous revascularization of for all coronary arteries in the past previously deemed non operable in 2018 due to severity of her underlying lung disease. Cardiology has been consulted and following. Continue aspirin apixaban BNP elevated 4110 similar to previous levels Lipase level normal LFTs normal Chest x-ray with COPD changes and minimal infiltrate or atelectasis at the lung base CT abdomen with patchy ground-glass opacities in the lower lung zones otherwise no acute abdominal pathology is noted Symptoms are likely related to GI etiology. With her elevated troponin she was admitted for serial troponins and further monitoring for symptoms. She improved in terms of her nausea and vomiting in her chest pain. Cardiology recommended no further workup due to her chronic troponin elevation and noncardiac etiology for her chest pain. She will continue to follow-up with compliance auditor his an outpatient basis. She will be discharged to home # severe COPD # severe multivessel coronary artery disease status post PCI previously deemed nonoperable in 1018 # hypertension uncontrolled on admission # diabetes mellitus type 2 on metformin at home which will be held during hospital stay. SSI added continue Accu-Cheks and hypoglycemia protocol # peripheral vascular disease with extensive calcification of abdominal aorta, renal arteries, celiac and mesenteric arteries, iliac and femoral arteries. Past chronic respiratory failure on home oxygen 24 x 7 Last time approximately fibrillation on apixaban and amiodarone # hyper hyperlipidemia on atorvastatin # chronic kidney disease stage 3 baseline creatinine 1.2-1.3 currently at baseline # elevated troponin see above # chronic anemia hemoglobin at 9.6 on admission which is about baseline for her # JOAQUIN on
--- NOTE | 2020-12-13 09:43 | PM.PNCARD ---
Progress Note: A&P Additional Plan 70-year-old lady with: Multivessel coronary disease with multivessel PCI done several years ago when she was declined as a surgical option because of severe underlying lung disease. She also has remote history of SVT which has been ablated in the past. Principal health problem at this time is end-stage COPD. Patient has a mild low level troponin elevation because of these comorbidities. She does not need or desire nor do I recommend ischemia workup in this setting. Plans to discharge today a noted and I would agree with Terrence Lr MD [facility] Subjective Date/time seen: Date of service: 12/13/20 09:43 Interval history: Follow-up visit in this 70-year-old lady with: Episodes of GI distress nausea and vomiting that prompted admission to hospital. This seems to have improved etiology is not clear at this time Long history of multivessel coronary artery disease as detailed in my note. Current symptoms do not indicate evidence of an acute coronary syndrome and troponin levels are chronically elevated at a low level as I mentioned in my note. Ischemia workup is not recommended in this setting. Exam Const: General: comfortable and no acute distress HENMT: Mouth: Yes moist mucous membranes Eyes: Sclera: sclerae normal Pupils: Equal, round and reactive pupils present Neck: Neck: supple and no JVD Resp: Effort & Inspection: normal respiratory effort Other: Breath sounds are relatively clear but diminished in both lung german Cardio: Rate: regular rate Rhythm: regular rhythm GI: GI Palp: Yes Soft to palpation Auscultation: normal bowel sounds Neuro: Cognition (Neuro): normal cognition Extrem: General: normal to inspection Objective Data Vital Signs Vital Signs: Vital Signs - 24 hr 12/12/20 12:03 12/12/20 15:13 12/12/20 15:28 Temperature 36.5 C Pulse Rate 84 90 Respiratory Rate 21 H 20 Blood Pressure 187/77 H 193/91 H Pulse Oximetry 100 99 96 12/12/20 16:00 12/12/20 18:00 12/12/20 19:17 Temperature 36.9 C Pulse Rate 86 91 102 H Respiratory Rate 18 Blood Pressure 178/106 H Pulse Oximetry 95 12/12/20 20:00 12/12/20 21:54 12/12/20 22:00 Temperature Pulse Rate 99 92 Respiratory Rate Blood Pressure Pulse Oximetry 95 96 12/13/20 00:00 12/13/20 02:00 12/13/20 04:00 Temperature 36.1 C L 36.5 C Pulse Rate 98 83 85 Respiratory Rate 16 22 H Blood Pressure 176/83 H 170/84 H Pulse Oximetry 98 100 12/13/20 06:00 12/13/20 08:00 12/13/20 09:31 Temperature 36.6 C Pulse Rate 92 97 109 H Respiratory Rate 20 Blood Pressure 189/87 H Pulse Oximetry 98 Intake/Output Intake/Output: Intake & Output 12/10/20 12/11/20 12/12/20 12/13/20 23:59 23:59 23:59 23:59 Intake Total 350 400 Output Total 250 800 Balance 100 -400 Meds/Results Medications: Active Medications Generic Name Dose Route Start Last Admin Trade Name Freq PRN Reason Stop Dose Admin Hydrocodone Bitart/Acetaminophen 1 tab 12/12/20 22:12 12/13/20 09:30 Hydrocodone/Acetaminophen (*Crx) 5-325 Mg Tablet PO 1 tab Q6H PRN Administration Pain Rated 4-6 Albuterol 2 puff 12/12/20 22:12 Albuterol Sulfate (*Sp) Aerosol 1 Puff INHALATION Q6H PRN Shortness Of Breath Or Wheezing Alendronate Sodium 70 mg 12/21/20 06:30 Alendronate Sodium 70 Mg Tablet PO Cloud@0630 [facility] Amiodarone HCl 200 mg 12/13/20 08:00 12/13/20 09:31 Amiodarone Hcl 200 Mg Tablet PO 200 mg DAILY@0800 GLORIA Administration Apixaban 5 mg 12/13/20 09:00 12/13/20 09:30 Apixaban 5 Mg Tablet PO 5 mg BID GLORIA Administration Aspirin 81 mg 12/13/20 09:00 12/13/20 09:29 Aspirin 81 Mg Enteric Tablet PO 81 mg QAM GLORIA Administration Atorvastatin Calcium 20 mg 12/13/20 09:00 12/13/20 09:29 Atorvastatin 20 Mg Tablet PO 20 mg DAILY GLORIA Administration Dextrose 12.5 gm 12/12/20 22:10 Dextrose 50% 25 Gm/50 Ml Syri
== END 2020-12-13 10:36 | disposition home or self-care (01) ==
LOC: ANHED 08:58 → ANHIMU 12-13 09:40
PROVIDERS: Emergency Medicine; Physician Assistant; Admitting Provider Internal Medicine; Emergency Provider Emergency Medicine; PCP Family Medicine Sports Medicine; Visit Provider Internal Medicine
DX: R07.9 Chest pain, unspecified (principal); R77.8 Other specified abnormalities of plasma proteins; J96.11 Chronic respiratory failure with hypoxia; R10.13 Epigastric pain; I13.0 Hypertensive heart and chronic kidney disease with heart failure and stage 1 through stage 4 chronic kidney disease, or unspecified chronic kidney disease; I50.30 Unspecified diastolic (congestive) heart failure; N18.30 Chronic kidney disease, stage 3 unspecified; J44.9 Chronic obstructive pulmonary disease, unspecified; I25.10 Atherosclerotic heart disease of native coronary artery without angina pectoris; D64.9 Anemia, unspecified; E11.42 Type 2 diabetes mellitus with diabetic polyneuropathy; E11.22 Type 2 diabetes mellitus with diabetic chronic kidney disease; E11.51 Type 2 diabetes mellitus with diabetic peripheral angiopathy without gangrene; G47.33 Obstructive sleep apnea (adult) (pediatric); I48.0 Paroxysmal atrial fibrillation; Z87.891 Personal history of nicotine dependence; Z99.81 Dependence on supplemental oxygen; Z79.84 Long term (current) use of oral hypoglycemic drugs
CPT/HCPCS: 36415; 71046; 74176; 80048; 80053; 82948; 83690; 83735; 83880; 84484; 85025; 85610; 85730; 93005; 96365; 96366; 96375; 99285; A9270; G0378; J0131; J1644; J2405

== ENCOUNTER 2020-12-22 18:52 | Emergency (ER) | payer MEDICARE, SELFPAY ==
--- NOTE | ~2020-12-22 | CT_ITS ---
EXAMINATION: CT brain wo con DATE: 12/22/2020 22:20 INDICATION: Head injury. TECHNIQUE: Computed tomography (CT) of the head was performed without intravenous contrast. The dose- length product was 605.33 mGy-cm. Automated exposure control and iterative reconstruction technique w ere employed. COMPARISON: CT dated 11/24/2019 FINDINGS: No acute intracranial hemorrhage, infarction, mass or mass effect. There are scattered mild periventricular and subcortical white matter changes, most likely related to small vessel ischemic d isease (microangiopathy). No ventriculomegaly or midline shift paranasal sinuses demonstrate mild muc osal thickening of the ethmoid air cells. Mastoids are pneumatized. IMPRESSION: 1. No acute intracranial abnormality. 2: Chronic age-related findings. Reviewed, dictated and finalized at location A.
--- NOTE | ~2020-12-22 | CT_ITS ---
EXAMINATION: CTA chest PE protocol DATE: 12/22/2020 22:34 CDT INDICATION: Chest pain. TECHNIQUE: Computed tomographic angiography (CTA) of the chest was performed with 100 mL Omnipaque-35 0 intravenous contrast. The dose-length product was 349.31 mGy-cm. Maximum intensity projection 3D-re constructions of the aorta and other arteries were constructed by the technologist on a separate work station. Automated exposure control and iterative reconstruction technique were employed. COMPARISON: CT dated 11/20/2019. FINDINGS: Study is technically adequate without evidence for pulmonary embolism. Pulmonary arteries a re dilated, consistent with pulmonary hypertension. No thoracic lymphadenopathy. There is atheroscler osis of the aorta. With aneurysmal dilation of the suprarenal abdominal aorta measuring 3.5 x 3.5 cm. There is stenosis of the origin of the left renal artery. No significant pleural or pericardial effu bridgette. No thoracic lymphadenopathy. Severe emphysema. No endobronchial lesions. No focal pneumonia. No pneumothorax. No endobronchial lesions. No acute bone or joint abnormality.. IMPRESSION: 1. No evidence for pulmonary embolism. Pulmonary arterial hypertension. 2: Severe emphysema. 3: Advanced atherosclerosis with suprarenal abdominal aortic aneurysm and left renal artery stenosis . Reviewed, dictated and finalized at location A. IMPRESSION: 1. No evidence for pulmonary embolism. Pulmonary arterial hypertension. 2: Severe emphysema. 3: Advanced atherosclerosis with suprarenal abdominal aortic aneurysm and left renal artery stenosis.
--- NOTE | ~2020-12-22 | XR_ITS ---
XR chest 2V 12/22/2020 20:24 Indication: Status post fall. Left rib pain. Procedure: AP and lateral views of the chest Comparison: Comparison to multiple prior studies sequentially, with oldest reviewed study dated 07/13. Findings: There are coarse interstitial infiltrates of the lower lung zones. Persistent enlargement o f the right pulmonary artery. There is atherosclerosis and ectasia of the aorta. No pleural effusion or pneumothorax. The lungs are hyperinflated which is consistent with, but not diagnostic of chronic obstructive pulmonary disease. Impression: 1: Chronic coarse interstitial infiltrates of the lower lung zones, likely atelectasis/fibrosis. Reviewed, dictated and finalized at location A. Impression: 1: Chronic coarse interstitial infiltrates of the lower lung zones, likely atel ectasis/fibrosis.
[2020-12-22 19:22] VITALS: BP 180/85; PULSE 103; RESP 14; TEMP 36.7; O2SAT 95
--- NOTE | 2020-12-22 19:26 | ECG_ITS ---
Measurements Intervals [place] Rate: 108 P: 58 [place]: 163 QRS: -29 QRSD: 117 T: 90 QT: 365 QTc: 491 Interpretive Statements SINUS TACHYCARDIA ATRIAL PREMATURE COMPLEX POSSIBLE LEFT ATRIAL ENLARGEMENT INTRAVENTRICULAR CONDUCTION DELAY DELAYED PRECORDIAL R/S TRANSITION BORDERLINE ST-T WAVE ABNORMALITY- HIGH LATERAL LEADS BASELINE ARTIFACT- I, II, III, AVR, AVL, AVF, V2, V4-V6 ABNORMAL ECG Electronically Signed On 12-22-2020 22:56:48 CDT by Joshua Bennett D.O.
[2020-12-22 19:53] LABS: Basophils Absolute Auto 0.1 K/mm3 (0.0-0.1); Basophils Percent Auto 1.1 % (0.2-1.2); Eosinophils Absolute Auto 0.9 K/mm3 (0-0.3); Eosinophils Percent Auto 13.1 % (0-4.4); Hematocrit 32.8 % (37.0-47.0); Hemoglobin 9.5 g/dL (12.0-15.0); Immature Granulocyte Absolute 0.01 K/mm3 (0.00-0.031); Immature Granulocyte Percent A 0.2 % (0-0.5); Lymphocytes Absolute Auto 1.79 K/mm3 (0.9-3.2); Lymphocytes Percent Auto 27.3 % (18.3-44.2); Mean Corpuscular Volume 86.3 fl (80-100); Mean Platelet Volume 10.3 fl (7.4-10.4); Monocytes Absolute Auto 0.7 K/mm3 (0.1-0.6); Monocytes Percent Auto 10.2 % (2.6-8.5); Neutrophils Absolute Auto 3.2 K/mm3 (1.3-6.7); Neutrophils Percent Auto 48.1 % (45.5-73.1); Platelet Count Result 265 k/mm3 (150-375); Red Cell Distribution Width 15.3 % (11.5-14.5); White Blood Count 6.6 K/mm3 (4.5-10.0)
[2020-12-22 20:04] LABS: Anion Gap 5 mmol/L (8-16); Blood Urea Nitrogen 34 mg/dL (7-17); Calcium 9.3 mg/dL (8.4-10.2); Carbon Dioxide 35 mmol/L (22-30); Chloride 101 mmol/L (98-107); Estimated Glomerular Filt Rate 37; Glucose 152 mg/dL (65-110); Potassium 4.1 mmol/L (3.4-5.0); Sodium 141 mmol/L (137-145)
[2020-12-22 20:11] LABS: Hypochromasia 1+ (NORMAL); Platelet Estimate Adequate (Adequate)
[2020-12-22 20:39] VITALS: BP 156/88; PULSE 106; RESP 27; O2SAT 100
[2020-12-22 20:46] VITALS: BP 161/87; PULSE 96; RESP 23; O2SAT 100
[2020-12-22] MEDS: HYDROmorphone HCL INJ (*CRX) 1 MG/ML SYR 0.5 MG IV PUSH ×2 (21:50→22:54)
[2020-12-22 22:31] VITALS: BP 164/76; PULSE 104; RESP 26; O2SAT 98
[2020-12-22 23:27] LABS: Lactic Acid Reflex 0.8 mmol/L (0.7-2.1)
[2020-12-22 23:29] LABS: Prothrombin Time 13.2 Seconds (11.1-14.7)
[2020-12-22 23:30] LABS: Partial Thromboplastin Time 28.6 SECONDS (22.3-36.8)
[2020-12-22 23:32] VITALS: PULSE 93; RESP 15; O2SAT 100
[2020-12-22 23:45] VITALS: PULSE 91; RESP 15
[2020-12-22 23:54] LABS: Alanine Aminotransferase 14 U/L (4-35); Albumin Level 3.7 g/dL (3.5-5.1); Alkaline Phosphatase 94 U/L (38-126); Aspartate Amino Transferase 27 U/L (14-36); Bilirubin,Total 0.6 mg/dL (0.2-1.3)
[2020-12-23] VITALS (8 sets, daily range): BP systolic 158; BP diastolic 78; PULSE 90–99; RESP 14–17; O2SAT 97–100
[2020-12-23 00:02] LABS: Troponin I 0.035 ng/mL (0.000-0.034)
[2020-12-23 00:31] LABS: NT Pro B Type Natriuretic Pept 1900 pg/mL (5-100)
--- NOTE | 2020-12-23 01:17 | ED.GENADULT ---
HPI - General Adult General Chief complaint: Shortness of Breath/Dyspnea Stated complaint: sob, rib pain Time Seen by Provider: 12/22/20 21:26 History of Present Illness HPI narrative: Patient 70-year-old female presents emerged from with chief complaint of left-sided chest wall pain and shortness of breath. The patient reports that she had pain on the left side of her chest after she fell and injured some ribs the patient believes she has multiple rib fractures. Patient states that her shortness of breath gets worse whenever she takes a deep breath. Related Data Home Medications Medication Instructions Recorded Confirmed metformin 500 mg PO BID 08/26/19 12/16/20 losartan 50 mg PO DAILY 11/08/19 12/16/20 alendronate 70 mg tablet 70 mg PO WEEKLY 05/09/20 12/16/20 sertraline 50 mg tablet 50 mg PO DAILY 05/09/20 12/16/20 albuterol sulfate 2.5 mg INHALATION Q6H PRN 07/12/20 12/16/20 amiodarone 200 mg PO DAILY 07/12/20 12/16/20 aspirin 81 mg PO DAILY 07/12/20 12/16/20 atorvastatin 20 mg PO DAILY 07/12/20 12/16/20 furosemide 40 mg PO DAILY 07/12/20 12/16/20 Daliresp 500 mcg PO DAILY 09/24/20 12/16/20 albuterol 180 mcg INHALATION Q6H PRN 09/24/20 12/16/20 Allergies Allergy/AdvReac Type Severity Reaction Status Date / Time morphine Allergy Intermediate Itching Verified 12/11/20 14:04 pregabalin Allergy Intermediate Itching Verified 12/11/20 14:04 Review of Systems Review of Systems: A 10 system review of systems was completed on the patient and is negative except for what is stated in the HPI. Nursing and ancillary documentation was reviewed. REPLACED BY [facility] Past Medical History Medical History Anxiety Arthritis Chronic anemia Chronic kidney disease, stage 3 Chronic obstructive pulmonary disease Chronic respiratory failure with hypoxia Chronically on oxygen at 4 - 5 L per nasal cannula. Closed intertrochanteric fracture of right hip (10/2019) Treated non operatively. Congestive heart failure Diastolic with most recent echocardiogram January 2019 demonstrating paradoxical septal motion consistent with right ventricular volume overload or elevated right ventricular end-diastolic pressure, EF 60-65%, mildly increased left ventricular wall thickness, grade 1 diastolic dysfunction, severely reduced right ventricular systolic function, severely enlarged right ventricular chamber, severely enlarged right atrial chamber, [id number] mitral valve regurgitation, trace tricuspid regurgitation, mild pulmonary hypertension with RVSP of 46 Coronary artery disease May 2017: stent x3 to the mid LAD, mid circumflex, and mid RCA. Deemed not to be an operable candidate due to severity of underlying lung disease. 06/2019: stent to the distal RCA, angioplasty to PDA. Depression Gastroesophageal reflux disease Generalized osteoarthritis of multiple sites Hyperlipidemia Hyperlipidemia Hypertension Irritable bowel syndrome [facility] [place] systemic steroid user Obstructive sleep apnea With last sleep study March 2019 recommending auto bilevel with 5 L of oxygen. Paroxysmal atrial fibrillation Paroxysmal supraventricular tachycardia (02/2018) Status post cardiac ablation per Dr. Alvares. Peripheral arterial disease Extensive calcification of the abdominal aorta, renal arteries, celiac and mesenteric arteries, iliac and femoral arteries on CT taken 12/12/2020. Peripheral neuropathy Pulmonary nodules Rheumatoid arthritis Subarachnoid hemorrhage (01/17/18) Sustained in a fall, treated conservatively. Type 2 diabetes mellitus Hemoglobin A1c was 6.5% in April 2020. Surgical History Surgical History History of bilateral cataract extraction History of cardiac radiofrequency ablation History of cholecystectomy History of coronary artery stent placement History of hysterectomy History of lithotripsy Status post bilat
[2020-12-23] MEDS: KETOROLAC 15 MG/ML VIAL (*BKC) IV PUSH (02:07)
== END 2020-12-23 02:27 | disposition home or self-care (01) ==
PROVIDERS: Emergency Medicine; Emergency Provider Emergency Medicine; PCP Family Medicine Sports Medicine
DX: S20.212A Contusion of left front wall of thorax, initial encounter (principal); E11.22 Type 2 diabetes mellitus with diabetic chronic kidney disease; I13.0 Hypertensive heart and chronic kidney disease with heart failure and stage 1 through stage 4 chronic kidney disease, or unspecified chronic kidney disease; N18.30 Chronic kidney disease, stage 3 unspecified; I50.9 Heart failure, unspecified; J44.9 Chronic obstructive pulmonary disease, unspecified; J96.11 Chronic respiratory failure with hypoxia; Z99.81 Dependence on supplemental oxygen; I25.10 Atherosclerotic heart disease of native coronary artery without angina pectoris; E78.5 Hyperlipidemia, unspecified; I48.0 Paroxysmal atrial fibrillation; E11.51 Type 2 diabetes mellitus with diabetic peripheral angiopathy without gangrene; E11.42 Type 2 diabetes mellitus with diabetic polyneuropathy; M06.9 Rheumatoid arthritis, unspecified; K21.9 Gastro-esophageal reflux disease without esophagitis; K58.9 Irritable bowel syndrome, unspecified; M19.90 Unspecified osteoarthritis, unspecified site; F32.A Depression, unspecified; F41.9 Anxiety disorder, unspecified; Z87.442 Personal history of urinary calculi; Z79.82 Long term (current) use of aspirin; Z79.84 Long term (current) use of oral hypoglycemic drugs; Z98.42 Cataract extraction status, left eye; Z98.41 Cataract extraction status, right eye; Z95.5 Presence of coronary angioplasty implant and graft; Z87.891 Personal history of nicotine dependence; Z77.22 Contact with and (suspected) exposure to environmental tobacco smoke (acute) (chronic); R00.0 Tachycardia, unspecified; I49.1 Atrial premature depolarization; R94.31 Abnormal electrocardiogram [ECG] [EKG]; I27.21 Secondary pulmonary arterial hypertension; I71.4 Abdominal aortic aneurysm, without rupture; I70.0 Atherosclerosis of aorta; I70.1 Atherosclerosis of renal artery; W19.XXXA Unspecified fall, initial encounter
CPT/HCPCS: 36415; 70450; 71046; 71275; 80048; 80076; 83605; 83880; 84484; 85025; 85610; 85730; 93005; 96374; 96375; 96376; 99284; J1170; J1885; Q9967

== ENCOUNTER 2021-01-06 13:09 | Outpatient (CLI) | payer MEDICARE, SELFPAY ==
--- NOTE | ~2021-01-06 | XR_ITS ---
EXAMINATION: [id number] EXAM DATE: 01/06/2021 13:51 INDICATION: Rib pain on the left side, fell 2 weeks ago. TECHNIQUE: Frontal projection of the upper left ribs, frontal projection of the lower left ribs, obli que projection of the left ribs. Frontal projection of the upper right ribs, frontal projection of t he lower right ribs, oblique projection of the right ribs, frontal chest x-ray(s) for interpretation. Comparison is made to prior examination from 12/22/2020. FINDINGS: There are right 6th, 7th and 8th rib fractures laterally, with callus formation suspected; these appear most likely subacute or chronic. No acutely displaced rib fractures identified on either side. There is cardiomegaly and pulmonary vascular congestion. Some prominent reticulation, could be from emphysema or chronic interstitial lung disease. No confluent consolidation, pneumothorax or ple ural effusion suspected. Consider educating patient that even if there is a radiographically occult nondisplaced rib fracture, there is no specific treatment other than to refrain from activity that prevents healing. IMPRESSION: 1. Right 6th-8th of acute or chronic rib fractures. 2. Cardiomegaly, pulmonary vascular congestion. Reviewed, dictated and finalized at location A. L [employer]
== END 2021-01-06 13:10 | disposition home or self-care (01) ==
LOC: ANHIMG 13:17
PROVIDERS: PCP Family Medicine Sports Medicine; Visit Provider Internal Medicine Cardiovascular Disease
DX: R07.81 Pleurodynia (principal); I51.7 Cardiomegaly
CPT/HCPCS: 71111

== ENCOUNTER 2021-01-06 14:53 | Inpatient (IN) | payer MEDICARE, SELFPAY ==
[2021-01-06] VITALS (8 sets, daily range): BP systolic 153–185; BP diastolic 83–98; PULSE 88–123; RESP 16–26; O2SAT 18–100
--- NOTE | 2021-01-06 14:57 | ECG_ITS ---
Measurements Intervals [place] Rate: 113 P: 51 [place]: 128 QRS: -42 QRSD: 111 T: 84 QT: 337 QTc: 462 Interpretive Statements SINUS TACHYCARDIA POSSIBLE LEFT ATRIAL ENLARGEMENT LEFT AXIS DEVIATION INTRAVENTRICULAR CONDUCTION DELAY CANNOT RULE OUT SEPTAL INFARCT, AGE INDETERMINATE ST-T WAVE ABNORMALITY IN HIGH LATERAL LEADS- CONSIDER ISCHEMIA ABNORMAL ECG Electronically Signed On 01-06-2021 15:09:48 [employer]ADDLE MECH[employer]IC by Joshua Bennett D.O.
[2021-01-06 15:58] LABS: Basophils Percent Auto 0.6 % (0.2-1.2); Eosinophils Absolute Auto 1.1 K/mm3 (0-0.3); Eosinophils Percent Auto 16.9 % (0-4.4); Hematocrit 30.8 % (37.0-47.0); Hemoglobin 9.2 g/dL (12.0-15.0); Immature Granulocyte Absolute 0.03 K/mm3 (0.00-0.031); Immature Granulocyte Percent A 0.5 % (0-0.5); Lymphocytes Absolute Auto 1.44 K/mm3 (0.9-3.2); Mean Corpuscular HGB Conc 29.9 g/dl (32-36); Mean Corpuscular Hemoglobin 24.4 pg (26-34); Mean Corpuscular Volume 81.7 fl (80-100); Mean Platelet Volume 9.6 fl (7.4-10.4); Monocytes Absolute Auto 0.5 K/mm3 (0.1-0.6); Monocytes Percent Auto 7.5 % (2.6-8.5); Neutrophils Absolute Auto 3.2 K/mm3 (1.3-6.7); Neutrophils Percent Auto 51.5 % (45.5-73.1); Platelet Count Result 193 k/mm3 (150-375); Red Blood Count 3.77 M/mm3 (4.2-5.4); Red Cell Distribution Width 15.7 % (11.5-14.5); White Blood Count 6.3 K/mm3 (4.5-10.0)
[2021-01-06 16:07] LABS: Anion Gap 9 mmol/L (8-16); Blood Urea Nitrogen 16 mg/dL (7-17); Calcium 9.1 mg/dL (8.4-10.2); Carbon Dioxide 26 mmol/L (22-30); Chloride 106 mmol/L (98-107); Estimated CRCL calculation 28 ml/min; Estimated Glomerular Filt Rate 37; Glucose 181 mg/dL (65-110); Sodium 141 mmol/L (137-145)
[2021-01-06 16:20] LABS: Hypochromasia 1+ (NORMAL); Ovalocytes 1+ (NORMAL); Platelet Estimate Adequate (Adequate)
--- NOTE | 2021-01-06 16:53 | ED.GENADULT ---
HPI - General Adult General Chief complaint: Shortness of Breath/Dyspnea Stated complaint: weak, sob Time Seen by Provider: 01/06/21 16:17 Source: patient and RN notes reviewed History of Present Illness HPI narrative: Patient is a 70 y/o female complaining severe generalized weakness starting 1-2 hours ago. She states that she was out for lunch and she was not able to get back into the car due to weakness. There is no known alleviating or exacerbating factor. She has chronic SOB due to COPD. She has some left sided chest pain for last 3 weeks following a fall. She had outpatient rib Xray done earlier today. Related Data Home Medications Medication Instructions Recorded Confirmed albuterol sulfate 2.5 mg INHALATION Q6H PRN 07/12/20 12/16/20 aspirin 81 mg PO DAILY 07/12/20 12/16/20 albuterol sulfate [Ventolin HFA] INHALATION 01/06/21 alendronate mg PO 01/06/21 amiodarone 01/06/21 atorvastatin 01/06/21 furosemide 01/06/21 losartan 01/06/21 metformin mg 01/06/21 roflumilast [Daliresp] mcg 01/06/21 sertraline mg 01/06/21 Allergies Allergy/AdvReac Type Severity Reaction Status Date / Time morphine Allergy Intermediate Itching Verified 12/11/20 14:04 pregabalin Allergy Intermediate Itching Verified 12/11/20 14:04 Review of Systems Constitutional: Constitutional: Denies chills, Denies fever(s), Denies headache(s) and Reports weakness Eyes: Eyes: Denies blurry vision ENT: Denies headache(s) and Denies neck pain Cardiovascular: Cardiovascular: Reports chest pain and Reports dyspnea Respiratory: Respiratory: Reports as per HPI, Denies cough, Reports dyspnea and Reports other (left rib pain) Gastrointestinal: Gastrointestinal: Denies abdominal pain, Denies diarrhea, Denies nausea and Denies vomiting Genitourinary: Genitourinary: Denies hematuria and Denies dysuria Musculoskeletal: Musculoskeletal: Denies back pain and Denies neck pain Neurologic: Denies headache(s) and Denies weakness [facility] Past Medical History Medical History Anxiety Arthritis Chronic anemia Chronic kidney disease, stage 3 Chronic obstructive pulmonary disease Chronic respiratory failure with hypoxia Chronically on oxygen at 4 - 5 L per nasal cannula. Closed intertrochanteric fracture of right hip (10/2019) Treated non operatively. Congestive heart failure Diastolic with most recent echocardiogram January 2019 demonstrating paradoxical septal motion consistent with right ventricular volume overload or elevated right ventricular end-diastolic pressure, EF 60-65%, mildly increased left ventricular wall thickness, grade 1 diastolic dysfunction, severely reduced right ventricular systolic function, severely enlarged right ventricular chamber, severely enlarged right atrial chamber, [id number] mitral valve regurgitation, trace tricuspid regurgitation, mild pulmonary hypertension with RVSP of 46 Coronary artery disease May 2017: stent x3 to the mid LAD, mid circumflex, and mid RCA. Deemed not to be an operable candidate due to severity of underlying lung disease. 06/2019: stent to the distal RCA, angioplasty to PDA. Depression Gastroesophageal reflux disease Generalized osteoarthritis of multiple sites Hyperlipidemia Hyperlipidemia Hypertension Irritable bowel syndrome Kidney stone [place] systemic steroid user Obstructive sleep apnea With last sleep study March 2019 recommending auto bilevel with 5 L of oxygen. Paroxysmal atrial fibrillation Paroxysmal supraventricular tachycardia (02/2018) Status post cardiac ablation per Dr. Alvares. Peripheral arterial disease Extensive calcification of the abdominal aorta, renal arteries, celiac and mesenteric arteries, iliac and femoral arteries on CT taken 12/12/2020. Peripheral neuropathy Pulmonary nodules Rheumatoid arthritis Subarachnoid hemorrhage (01/17/18) Sustained in a fall, treated conservatively. Type 2 diabetes mellitus
[2021-01-06 17:10] LABS: Alveolar/Arterial O2 Gradient 117.7 mmHg; Fractional Inspired Oxygen 36 %; HCO3 ABG 27.1 mEq/l (22.0-26.0); Oxygen Content ABG 12.8 %vol (16.0-22.0); Oxygen Saturation ABG 96.6 % (95.0-100.0); Oxyhemoglobin 95.1 % THb (90.0-100.0); PCO2 ABG 44.5 mmHg (35.0-45.0); PO2 ABG 87.4 mmHg (80.0-100.0); PO2 FiO2 Ratio Arterial Blood 2.43 %; Total Hemoglobin 9.5 g/dL (12.0-18.0); pH ABG 7.402 (7.350-7.450)
[2021-01-06 17:11] LABS: Device NASAL CANNULA; Site Drawn LEFT BRACHIAL
[2021-01-06 17:38] LABS: Troponin I 0.029 ng/mL (0.000-0.034)
[2021-01-06] MEDS: KETOROLAC 30 MG/ML VIAL (*BKC) IM (18:03)
[2021-01-06 19:46] LABS: Troponin I 0.068 ng/mL (0.000-0.034)
--- NOTE | 2021-01-06 20:21 | PM.IMHP ---
H&P: HPI History of Present Illness Date/Time: 01/06/21 20:21 Chief Complaint: Weakness Narrative: This is a 70-year-old female with past medical history significant for type 2 diabetes mellitus, osteoporosis, COPD/emphysema, atrial fibrillation. Patient was brought to the emergency room after she had an episode of generalized weakness she had been in to her primary care physician's office for a regular checkup. She has been her usual state of health up until this event, patient denies any fevers, chills, rigors, nausea ,vomiting, abdominal pain ,diarrhea, chest pain, shortness of breath ,cough, sputum production ,leg swelling, patient had a fall 2 weeks ago, and states that she has been falling frequently x-rays did not show any acute fractures, no loss of consciousness, no syncope ,no near syncope ,no lightheadedness or dizziness. Patient uses walker when going out but at home she is usually able to walk distances within the house without the aid of any equipment. Preliminary workup was significant for urinalysis with numerous wbc's, a chest x-ray was significant for acute rib fractures on the right size 6 through 8. Patient has been admitted for further evaluation assessment and treatment. Review of Systems Review of Systems: Generalized weakness, frequent falls. Constitutional: Constitutional: Denies chills, Denies fatigue, Denies fever(s), Reports frequent falls, Denies lethargy, Denies malaise, Denies night sweats and Reports weakness Eyes: Eyes: Denies change in vision ENT: Denies dysphagia, Denies vertigo, Denies dizziness, Denies nasal congestion, Denies nasal discharge, Denies nasal obstruction and Denies odynophagia Cardiovascular: Cardiovascular: Denies syncope, Denies irregular heart rhythm, Denies lightheadedness, Denies radiating jaw, neck or arm pain, Denies palpitations, Denies dyspnea on exertion, Denies orthopnea and Denies paroxysmal nocturnal dyspnea Respiratory: Respiratory: Denies change in phlegm color, Denies cough, Denies excessive phlegm production, Denies dyspnea and Denies wheezing Gastrointestinal: Gastrointestinal: Denies abdominal pain, Denies dyspepsia, Denies diarrhea, Denies nausea and Denies vomiting Genitourinary: Genitourinary: Reports no additional female genitourinary complaints, Reports as per HPI and Denies dysuria Musculoskeletal: Musculoskeletal: Denies back pain, Reports arthralgias (Ribcage) and Denies joint swelling Integumentary/Breasts: Skin/Breast: Denies lesions and Denies rash Neurologic: Denies syncope, Denies focal weakness and Denies Sensory deficit (Neuro) Psychiatric: Psychiatric: Reports no additional psychiatric complaints and Reports as per HPI Endocrine: Endocrine: Reports no additional endocrine complaints and Reports as per HPI Hematologic/Lymphatic: Hematologic/Lymphatic: Reports no additional hematologic/lymphatic complaints and Reports as per HPI [facility] Past Medical History Medical History (Updated 01/07/21 @ 02:34 by Geneva Zhou MD) Anxiety Arthritis Chronic anemia Chronic kidney disease, stage 3 Chronic obstructive pulmonary disease Chronic respiratory failure with hypoxia Chronically on oxygen at 4 - 5 L per nasal cannula. Closed intertrochanteric fracture of right hip (10/2019) Treated non operatively. Congestive heart failure Diastolic with most recent echocardiogram January 2019 demonstrating paradoxical septal motion consistent with right ventricular volume overload or elevated right ventricular end-diastolic pressure, EF 60-65%, mildly increased left ventricular wall thickness, grade 1 diastolic dysfunction, severely reduced right ventricular systolic function, severely enlarged right ventricular chamber, severely enlarged right atrial chamber, [id number] mitral valve regurgitation, trace tricuspid regurgitation, mild pulmonary hypertension with RVSP of 46 Coronary artery disease May 2017: stent x3 to the mid LAD, mid circumflex, and mid RCA. Philippe
[2021-01-07] VITALS (17 sets, daily range): BP systolic 136–187; BP diastolic 67–97; PULSE 67–140; RESP 12–20; TEMP 36.6–37.4; O2SAT 92–100
--- NOTE | 2021-01-07 05:11 | ADMGEN ---
This patient, Piedad Andarde, was admitted to IMU Room 206-01 on 01/07/21 at 0440. Patient/family oriented to hospital policies and general routines including ID bracelet, bed and alarms, visiting hours, pain management, procedures, bathroom and other care routines, personal items, smoking policy, room service/diet, and visiting hours. Information on how to activate the Rapid Response Team has been discussed. Patient/Family are encouraged to report perceived risks to care and to ask questions if they do not understand what they are told or what they should do.
[2021-01-07] MEDS: HYDROmorphone HCL INJ (*CRX) 1 MG/ML SYR IV PUSH (06:30)
[2021-01-07] MEDS: LOSARTAN POTASSIUM 50 MG TABLET BY MOUTH (08:17)
[2021-01-07] MEDS: AMIODARONE HCL 200 MG TABLET PO (08:17)
[2021-01-07] MEDS: ATORVASTATIN 20 MG TABLET BY MOUTH (08:18)
[2021-01-07] MEDS: ALBUTEROL SULFATE (*SP) AEROSOL 1 PUFF INHALATION ×3 (08:50→20:54)
[2021-01-07] MEDS: ONDANSETRON INJ 4 MG/2 ML VIAL IV PUSH (10:12)
--- NOTE | 2021-01-07 12:30 | PCPTNOTE ---
Attempted PT eval and pt refuses despite multiple attempts to instruct pt on why we should at least evaluate. Will try again in AM.
--- NOTE | 2021-01-07 12:32 | PCPTNOTE ---
PT eval attempted and pt adamantly refuses despite different explanations of why PT should be done. Patient states she doesn't need therapy and told her MD she didn't want it. Plan to try again in am. W[place]ATT
--- NOTE | 2021-01-07 14:12 | PM.IMPN ---
Progress Note: A&P Assessment and Plan (1) UTI (urinary tract infection): Code(s): N39.0 - Urinary tract infection, site not specified Status: Acute Assessment and Plan: Patient has been started on Rocephin for EColi UTI (2) Weakness: Code(s): R53.1 - Weakness Status: Acute Assessment and Plan: Likely secondary to infection and recent fall PT OT (3) Left-sided chest wall pain: Code(s): R07.89 - Other chest pain Status: Acute Assessment and Plan: I will add lidoderm patch for pain control Secondary to acute fracture of 6 through 8 ribs Incentive spirometer (4) Chronic kidney disease, stage 3: Code(s): N18.30 - Chronic kidney disease, stage 3 unspecified Status: Acute Assessment and Plan: Continue to monitor (5) Peripheral arterial disease: Code(s): I73.9 - Peripheral vascular disease, unspecified Status: Acute Assessment and Plan: Chronic and stable (6) Chronic obstructive pulmonary disease: Code(s): J44.9 - Chronic obstructive pulmonary disease, unspecified Status: Acute Assessment and Plan: Continue medications Pt is on 4 liters of oxygen at home (7) Type 2 diabetes mellitus: Code(s): E11.9 - Type 2 diabetes mellitus without complications Status: Acute Assessment and Plan: ACCSHABBIR MEJIA (8) Hypertension: Code(s): I10 - Essential (primary) hypertension Status: Acute Assessment and Plan: Continue home meds (9) Paroxysmal atrial fibrillation: Code(s): I48.0 - Paroxysmal atrial fibrillation Status: Acute Assessment and Plan: Rate controlled (10) Gastroesophageal reflux disease: Code(s): K21.9 - Gastro-esophageal reflux disease without esophagitis Status: Inactive Assessment and Plan: PPI as needed (11) Former smoker: Code(s): Z87.891 - Personal history of nicotine dependence Status: Acute Assessment and Plan: Adviced to quit (12) Rheumatoid arthritis: Code(s): M06.9 - Rheumatoid arthritis, unspecified Status: Chronic Assessment and Plan: Patient is on roflumilast Sees outpatient Rheumatology MD (13) Congestive heart failure: Code(s): I50.9 - Heart failure, unspecified Status: Chronic Assessment and Plan: Chronic and stable (14) Chronic respiratory failure with hypoxia: Code(s): J96.11 - Chronic respiratory failure with hypoxia Status: Chronic Assessment and Plan: Continue supplemental oxygen Pt is on 4 liters Subjective Date/time seen: 01/07/21 14:12 Interval history: 70-year-old female with past medical history significant for type 2 diabetes mellitus, osteoporosis, COPD/emphysema, atrial fibrillation. Patient was brought to the emergency room after she had an episode of generalized weakness she had been in to her primary care physician's office for a regular checkup. Pt complains of pain in her left side pt has had a fall, states since then she has not taken deep breaths. And feels weak on walking or transferring. Pt went to DR F[place] yesterday and felt so weak after her CXR her bought her to ED for evaluation. Pt also found to have uti started on IV rocephin. Review of Systems Review of Systems: All systems reviewed & are unremarkable except as noted in HPI and below Exam Const: General: cooperative and healthy appearing; No in distress Nutritional Appearance: overweight Orientation/consciousness: oriented to person HENMT: Head: normal to inspection Chest: Chest palpation & inspection: localized rib tenderness with anteroposterior compression Other: Pt is on 4 liters of oxygen chronically Resp: Effort & Inspection: no respiratory distress Auscultation: no rhonchi and no wheezes Cardio: Rate: regular rate Rhythm: regular rhythm GI: Inspection: normal to inspection GI Palp: No
[2021-01-07] MEDS: HYDROcodone/acetaminophen (*CRX) 10-325 MG TABLET 1 TAB PO ×2 (16:35→22:38)
[2021-01-07] MEDS: WATER FOR IRRIGATION, STERILE 1,000 ML BOTTLE 1000 ML (21:03)
[2021-01-08] VITALS (12 sets, daily range): BP systolic 154–187; BP diastolic 71–81; PULSE 73–109; RESP 16–22; TEMP 36.3–36.8; O2SAT 93–100
[2021-01-08] MEDS: LOSARTAN POTASSIUM 50 MG TABLET BY MOUTH (04:44)
[2021-01-08] MEDS: AMIODARONE HCL 200 MG TABLET PO (04:44)
[2021-01-08] MEDS: ALBUTEROL SULFATE (*SP) AEROSOL 1 PUFF INHALATION ×2 (08:07→14:00)
[2021-01-08] MEDS: FLUTICASONE/UMECLIDIN/VILANTER 100-62.5-25 MCG ELLIPTA 1 PUFF INHALATION (08:07)
[2021-01-08 08:45] LABS: Hematocrit 30.1 % (37.0-47.0); Hemoglobin 8.7 g/dL (12.0-15.0); Mean Corpuscular HGB Conc 28.9 g/dl (32-36); Mean Corpuscular Hemoglobin 24.2 pg (26-34); Mean Corpuscular Volume 83.6 fl (80-100); Mean Platelet Volume 10.2 fl (7.4-10.4); Platelet Count Result 177 k/mm3 (150-375); Red Cell Distribution Width 15.9 % (11.5-14.5); White Blood Count 5.1 K/mm3 (4.5-10.0)
[2021-01-08] MEDS: ATORVASTATIN 20 MG TABLET BY MOUTH (08:49)
[2021-01-08] MEDS: ROFLUMILAST 500 MCG TABLET PO (08:49)
[2021-01-08] MEDS: SERTRALINE HCL 50 MG TABLET PO (08:49)
[2021-01-08] MEDS: LIDOCAINE 5% PATCH 1 PATCH TRANSDERM (08:49)
[2021-01-08] MEDS: ASPIRIN 81 MG CHEWABLE TABLET PO (08:49)
[2021-01-08 09:09] LABS: Anion Gap 5 mmol/L (8-16); Blood Urea Nitrogen 17 mg/dL (7-17); Calcium 8.7 mg/dL (8.4-10.2); Carbon Dioxide 29 mmol/L (22-30); Chloride 106 mmol/L (98-107); Estimated CRCL calculation 26 ml/min; Estimated Glomerular Filt Rate 34; Glucose 117 mg/dL (65-110); Potassium 4.6 mmol/L (3.4-5.0); Sodium 140 mmol/L (137-145)
--- NOTE | 2021-01-08 09:41 | PCPTNOTE ---
Spoke with patient, patient's nurse and evaluation OT patient is independent with all mobility in room and functioning at baseline, no skilled needs at this time, please re-order if status changes.
--- NOTE | 2021-01-08 14:19 | PM.DS ---
DS: Admitting Diagnosis Discharge Date 01/08/2021 Admitting Diagnosis weakness DS: Discharge Diagnosis Discharge Diagnosis (1) Left-sided chest wall pain: Code(s): R07.89 - Other chest pain Status: Acute Assessment and Plan: I will add lidoderm patch for pain control Secondary to acute fracture of 6 through 8 ribs Incentive spirometer (2) UTI (urinary tract infection): Code(s): N39.0 - Urinary tract infection, site not specified Status: Acute Assessment and Plan: Patient has been started on Rocephin for EColi UTI (3) Weakness: Code(s): R53.1 - Weakness Status: Acute Assessment and Plan: Likely secondary to infection and recent fall PT OT (4) Chronic kidney disease, stage 3: Code(s): N18.30 - Chronic kidney disease, stage 3 unspecified Status: Acute Assessment and Plan: Continue to monitor (5) Peripheral arterial disease: Code(s): I73.9 - Peripheral vascular disease, unspecified Status: Acute Assessment and Plan: Chronic and stable (6) Chronic obstructive pulmonary disease: Code(s): J44.9 - Chronic obstructive pulmonary disease, unspecified Status: Acute Assessment and Plan: Continue medications Pt is on 4 liters of oxygen at home (7) Type 2 diabetes mellitus: Code(s): E11.9 - Type 2 diabetes mellitus without complications Status: Acute Assessment and Plan: SHABBIR LOPEZ (8) Hypertension: Code(s): I10 - Essential (primary) hypertension Status: Acute Assessment and Plan: Continue home meds (9) Paroxysmal atrial fibrillation: Code(s): I48.0 - Paroxysmal atrial fibrillation Status: Acute Assessment and Plan: Rate controlled (10) Gastroesophageal reflux disease: Code(s): K21.9 - Gastro-esophageal reflux disease without esophagitis Status: Inactive Assessment and Plan: PPI as needed (11) Former smoker: Code(s): Z87.891 - Personal history of nicotine dependence Status: Acute Assessment and Plan: Adviced to quit (12) Rheumatoid arthritis: Code(s): M06.9 - Rheumatoid arthritis, unspecified Status: Chronic Assessment and Plan: Patient is on roflumilast Sees outpatient Rheumatology MD (13) Congestive heart failure: Code(s): I50.9 - Heart failure, unspecified Status: Chronic Assessment and Plan: Chronic and stable (14) Chronic respiratory failure with hypoxia: Code(s): J96.11 - Chronic respiratory failure with hypoxia Status: Chronic Assessment and Plan: Continue supplemental oxygen Pt is on 4 liters DS: Summary Hospital Course Reason for hospitalization: Chief Complaint: Weakness Narrative: This is a 70-year-old female with past medical history significant for type 2 diabetes mellitus, osteoporosis, COPD/emphysema, atrial fibrillation. Patient was brought to the emergency room after she had an episode of generalized weakness she had been in to her primary care physician's office for a regular checkup. She has been her usual state of health up until this event, patient denies any fevers, chills, rigors, nausea ,vomiting, abdominal pain ,diarrhea, chest pain, shortness of breath ,cough, sputum production ,leg swelling, patient had a fall 2 weeks ago, and states that she has been falling frequently x-rays did not show any acute fractures, no loss of consciousness, no syncope ,no near syncope ,no lightheadedness or dizziness. Patient uses walker when going out but at home she is usually able to walk distances within the house without the aid of any equipment. Preliminary workup was significant for urinalysis with numerous wbc's, a chest x-ray was significant for acute rib fractures on the right size 6 through 8. Patient has been admitted for further evaluation assessment and treatment. Hospital Course: I will add lidoderm patch
== END 2021-01-08 15:30 | disposition home or self-care (01) | DRG 690 ==
LOC: ANHED 17:11 → ANHIMU 01-07 00:13 → ANH3MED 01-08 11:05 → ANHIMU 01-09 14:19
PROVIDERS: Family Medicine; Admitting Provider Internal Medicine; Emergency Provider Emergency Medicine; PCP Family Medicine Sports Medicine; Visit Provider Family Medicine
DX: N39.0 Urinary tract infection, site not specified (principal); S22.41XA Multiple fractures of ribs, right side, initial encounter for closed fracture; I13.0 Hypertensive heart and chronic kidney disease with heart failure and stage 1 through stage 4 chronic kidney disease, or unspecified chronic kidney disease; J96.11 Chronic respiratory failure with hypoxia; I50.32 Chronic diastolic (congestive) heart failure; W19.XXXA Unspecified fall, initial encounter; E11.9 Type 2 diabetes mellitus without complications; M81.0 Age-related osteoporosis without current pathological fracture; J43.9 Emphysema, unspecified; M19.90 Unspecified osteoarthritis, unspecified site; N18.30 Chronic kidney disease, stage 3 unspecified; I25.10 Atherosclerotic heart disease of native coronary artery without angina pectoris; K21.9 Gastro-esophageal reflux disease without esophagitis; E78.5 Hyperlipidemia, unspecified; K58.9 Irritable bowel syndrome, unspecified; G47.33 Obstructive sleep apnea (adult) (pediatric); D64.9 Anemia, unspecified; F41.9 Anxiety disorder, unspecified; I73.9 Peripheral vascular disease, unspecified; M06.9 Rheumatoid arthritis, unspecified; I48.0 Paroxysmal atrial fibrillation; G62.9 Polyneuropathy, unspecified; Z99.81 Dependence on supplemental oxygen; Z98.42 Cataract extraction status, left eye; Z98.41 Cataract extraction status, right eye; Z90.49 Acquired absence of other specified parts of digestive tract; Z95.5 Presence of coronary angioplasty implant and graft; Z90.710 Acquired absence of both cervix and uterus; Z87.891 Personal history of nicotine dependence
CPT/HCPCS: 36415; 36600; 71111; 80048; 82805; 84484; 85025; 85027; 93005; 94640; 96365; 96372; 96375; 97165; 99285; A9270; G0378; J0696; J1170; J1885; J2405

== ENCOUNTER 2021-08-16 07:48 | Emergency (ER) | payer MEDICARE, SELFPAY ==
[2021-08-16] VITALS (29 sets, daily range): BP systolic 131–154; BP diastolic 65–74; PULSE 81–95; RESP 14–22; O2SAT 97–100
--- NOTE | ~2021-08-16 | XR_ITS ---
XR chest 2V DATE: 08/16/2021 08:40 INDICATION: General chest pain. History of COPD, congestive heart failure, hypertension, coronary art skyla disease TECHNIQUE: AP and lateral views COMPARISON: 12/22/2020 CTA chest FINDINGS: Bilateral hyperinflation and relative flattening the diaphragm consistent with COPD. Heart size appears within normal limits. Is aortic calcification and tortuosity. Mild infiltrate or atelectasis in the lower lung zones; otherwise no pulmonary consolidation. No pleu ral effusion or pneumothorax. Osteopenia. IMPRESSION: COPD Mild infiltrate or atelectasis in the lower lung zones Reviewed, dictated and finalized at location A.
--- NOTE | 2021-08-16 08:12 | ECG_ITS ---
Measurements Intervals [place] Rate: 92 P: 63 GA: 170 QRS: -34 QRSD: 126 T: 110 QT: 384 QTc: 476 Interpretive Statements SINUS RHYTHM POSSIBLE LEFT ATRIAL ENLARGEMENT LEFT AXIS DEVIATION MODERATE INTRAVENTRICULAR CONDUCTION DELAY CANNOT RULE OUT SEPTAL INFARCTION, AGE INDETERMINATE ST DEVIATION AND MODERATE T-WAVE ABNORMALITY, CONSIDER LATERAL ISCHEMIA ABNORMAL ECG COMPARED TO ECG 01/06/2021 15:03:17 HEART RATE HAS DECREASED Electronically Signed On 08-16-2021 9:32:21 CDT by Dimitri Rubio M.D.
--- NOTE | 2021-08-16 08:29 | ED.CHESTPAIN ---
HPI - Chest Pain General Chief Complaint: Chest Pain Stated Complaint: sore throat, hurts in her chest when she eats Time Seen by Provider: 08/16/21 08:04 History of Present Illness HPI narrative: 71-year-old female presenting to the emergency department for evaluation of sore throat that is worsened with swallowing. Patient states this has been ongoing for the last few days. Patient also reports that she has had itching all over her body for the last few days. Patient denies having any noticeable rashes. Patient has been taking Benadryl and states this does help with the itching. Patient did have an episode of emesis this morning patient reports that she did feel better after the emesis. Patient denies any current abdominal pain.. Patient states that she has had intermittent chest pain worsened with swallowing. Patient denies any current chest pain, denies any current abdominal pain and denies any shortness of breath. Patient denies any current nausea. Patient does have a previous surgical history of a hysterectomy. Patient is on 4 L of oxygen by nasal cannula at all times. Related Data Home Medications Medication Instructions Recorded Confirmed aspirin 81 mg tablet 81 mg PO DAILY 07/12/20 07/09/21 albuterol sulfate 90 mcg/actuation 2 puff inhalation Q6-8H PRN 01/06/21 07/09/21 aerosol inhaler (Ventolin HFA) Shortness Of Breath amiodarone 200 mg tablet 200 mg PO DAILY 01/06/21 07/09/21 atorvastatin 20 mg tablet 20 mg PO DAILY 01/06/21 07/09/21 losartan 50 mg tablet 50 mg PO DAILY 01/06/21 07/09/21 metformin 500 mg tablet 500 mg PO BID 01/06/21 07/09/21 roflumilast 500 mcg tablet 500 mcg PO DAILY 01/06/21 07/09/21 (Daliresp) sertraline 50 mg tablet 50 mg PO DAILY 01/06/21 07/09/21 fluticasone fur. 100 mcg-umeclid 1 inh inhalation DAILY 01/07/21 07/09/21 62.5 mcg-vilant 25 mcg inhalat.powder (Trelegy Ellipta) hydrocodone 10 mg-acetaminophen 1 tablet PO Q4-6H PRN Pain 01/07/21 07/09/21 325 mg tablet potassium chloride 20 mEq 20 meq PO DAILY 05/06/21 07/09/21 tablet,extended release Allergies Allergy/AdvReac Type Severity Reaction Status Date / Time morphine Allergy Intermediate Itching Verified 07/09/21 11:13 pregabalin Allergy Intermediate Itching Verified 07/09/21 11:13 Review of Systems Review of Systems: CONSTITUTIONAL: Denies fever, chills, or sweats. EYES: Denies visual changes, redness, or discharge. ENT: Denies rhinorrhea, congestion. Does report some sore throat. CARDIOVASCULAR: Denies chest pain, palpitations, or edema. RESPIRATORY: Denies cough or dyspnea. GASTROINTESTINAL: See HPI GENITOURINARY: Denies dysuria or hematuria. SKIN: See HPI MUSCULOSKELETAL: Denies back pain, joint pain, or myalgia. NEUROLOGIC: Denies headache, numbness, or weakness. [facility] Past Medical History Medical History (Updated 08/16/21 @ 12:23 by Dereck Noonan MD) Anemia Anemia Anxiety Arthritis Chronic anemia Chronic kidney disease, stage 3 Chronic obstructive pulmonary disease Chronic respiratory failure with hypoxia Chronically on oxygen at 4 - 5 L per nasal cannula. Closed intertrochanteric fracture of right hip (10/2019) Treated non operatively. Congestive heart failure Diastolic with most recent echocardiogram January 2019 demonstrating paradoxical septal motion consistent with right ventricular volume overload or elevated right ventricular end-diastolic pressure, EF 60-65%, mildly increased left ventricular wall thickness, grade 1 diastolic dysfunction, severely reduced right ventricular systolic function, severely enlarged right ventricular chamber, severely enlarged right atrial chamber, [id number] mitral valve regurgitation, trace tricuspid regurgitation, mild pulmonary hypertension with RVSP of 46 Coronary artery disease May 2017: stent x3 to the mid LAD, mid circumflex, and mid RCA. Deemed not to be an operable candidate due to severity of underlying lung disease. 06/2019: stent to the dis
[2021-08-16 09:21] LABS: Basophils Percent Auto 0.3 % (0.2-1.2); Eosinophils Absolute Auto 1.7 K/mm3 (0-0.3); Eosinophils Percent Auto 23.5 % (0-4.4); Hematocrit 36.7 % (37.0-47.0); Hemoglobin 11.3 g/dL (12.0-15.0); Immature Granulocyte Absolute 0.04 K/mm3 (0.00-0.031); Immature Granulocyte Percent A 0.6 % (0-0.5); Lymphocytes Absolute Auto 1.02 K/mm3 (0.9-3.2); Lymphocytes Percent Auto 14.1 % (18.3-44.2); Mean Corpuscular HGB Conc 30.8 g/dl (32-36); Mean Corpuscular Hemoglobin 26.6 pg (26-34); Mean Corpuscular Volume 86.4 fl (80-100); Mean Platelet Volume 9.8 fl (7.4-10.4); Monocytes Absolute Auto 0.4 K/mm3 (0.1-0.6); Neutrophils Absolute Auto 4.1 K/mm3 (1.3-6.7); Neutrophils Percent Auto 56.5 % (45.5-73.1); Platelet Count Result 189 k/mm3 (150-375); Red Blood Count 4.25 M/mm3 (4.2-5.4); Red Cell Distribution Width 15.2 % (11.5-14.5); White Blood Count 7.2 K/mm3 (4.5-10.0)
[2021-08-16 09:35] LABS: Alanine Aminotransferase 16 U/L (6-35); Albumin Level 3.9 g/dL (3.5-5.1); Alkaline Phosphatase 116 U/L (38-126); Anion Gap 6 mmol/L (8-16); Aspartate Amino Transferase 29 U/L (14-36); Bilirubin,Total 0.3 mg/dL (0.2-1.3); Blood Urea Nitrogen 45 mg/dL (7-17); Calcium 8.8 mg/dL (8.4-10.2); Carbon Dioxide 32 mmol/L (22-30); Chloride 99 mmol/L (98-107); Estimated Glomerular Filt Rate 25; Glucose 129 mg/dL (65-110); Potassium 4.3 mmol/L (3.4-5.0); Sodium 137 mmol/L (137-145)
[2021-08-16 09:41] LABS: Troponin I 0.021 ng/mL (0.000-0.034)
[2021-08-16 10:12] LABS: SARS-CoV-2 RNA PCR Negative
[2021-08-16 12:06] LABS: Troponin I 0.021 ng/mL (0.000-0.034)
== END 2021-08-16 12:44 | disposition home or self-care (01) ==
PROVIDERS: Emergency Provider Emergency Medicine; PCP Family Medicine Sports Medicine
DX: J02.9 Acute pharyngitis, unspecified (principal); L29.9 Pruritus, unspecified; Z20.822 Contact with and (suspected) exposure to COVID-19; J96.11 Chronic respiratory failure with hypoxia; J44.9 Chronic obstructive pulmonary disease, unspecified; I25.10 Atherosclerotic heart disease of native coronary artery without angina pectoris; I48.0 Paroxysmal atrial fibrillation; I50.9 Heart failure, unspecified; I13.0 Hypertensive heart and chronic kidney disease with heart failure and stage 1 through stage 4 chronic kidney disease, or unspecified chronic kidney disease; N18.30 Chronic kidney disease, stage 3 unspecified; E11.22 Type 2 diabetes mellitus with diabetic chronic kidney disease; E11.42 Type 2 diabetes mellitus with diabetic polyneuropathy; E11.51 Type 2 diabetes mellitus with diabetic peripheral angiopathy without gangrene; I73.9 Peripheral vascular disease, unspecified; D64.9 Anemia, unspecified; E78.5 Hyperlipidemia, unspecified; M06.9 Rheumatoid arthritis, unspecified; K58.9 Irritable bowel syndrome, unspecified; K21.9 Gastro-esophageal reflux disease without esophagitis; G47.33 Obstructive sleep apnea (adult) (pediatric); M19.90 Unspecified osteoarthritis, unspecified site; Z99.81 Dependence on supplemental oxygen; Z87.442 Personal history of urinary calculi; Z98.42 Cataract extraction status, left eye; Z98.41 Cataract extraction status, right eye; Z95.5 Presence of coronary angioplasty implant and graft; Z87.891 Personal history of nicotine dependence; Z79.82 Long term (current) use of aspirin; Z79.84 Long term (current) use of oral hypoglycemic drugs
CPT/HCPCS: 36415; 71046; 80053; 84484; 85025; 87081; 87880; 93005; 99284; C9803; U0003; U0005

== ENCOUNTER 2021-08-27 17:25 | Emergency (ER) | payer MEDICARE, SELFPAY ==
--- NOTE | ~2021-08-27 | XR_ITS ---
EXAMINATION: XR chest 2V DATE: 08/27/2021 18:29 INDICATION: Chest pain TECHNIQUE: AP and lateral views of the chest are obtained. COMPARISON: 08/16/2021 FINDINGS: Bibasilar airspace opacities persist but have improved. No pleural effusion or pneumothorax . The cardiomediastinal silhouette is normal. Healing right-sided rib fractures are noted. There is m ild thoracic spondylosis. IMPRESSION: 1. Improving bibasilar airspace opacities, consistent with atelectasis versus pneumonia. Reviewed, dictated and finalized at location F. IMPRESSION: 1. Improving bibasilar airspace opacities, consistent with atelectasis versus p neumonia.
[2021-08-27 17:26] VITALS: BP 164/74; PULSE 93; RESP 20; TEMP 36.7; O2SAT 99
--- NOTE | 2021-08-27 17:48 | ECG_ITS ---
Measurements Intervals [place] Rate: 80 P: 68 OR: 172 QRS: -42 QRSD: 116 T: 78 QT: 406 QTc: 471 Interpretive Statements SINUS RHYTHM POSSIBLE LEFT ATRIAL ENLARGEMENT [-0.1mV P-WAVE IN V1/V2] LEFT AXIS DEVIATION [QRS AXIS < -30] OLD SEPTAL MYOCARDIAL INFARCTION COMPARED TO ECG 08/16/2021 08:16:53 NO SIGNIFICANT CHANGES Electronically Signed On 08-27-2021 19:46:04 CDT by Abigail Moraes M.D.
[2021-08-27 17:54] VITALS: BP 138/72; PULSE 85; RESP 15; TEMP 36.8; O2SAT 100
[2021-08-27 17:59] VITALS: O2SAT 100
--- NOTE | 2021-08-27 18:05 | ED.CHESTPAIN ---
HPI - Chest Pain General Chief Complaint: Chest Pain Stated Complaint: chest pain Time Seen by Provider: 08/27/21 17:47 Source: patient Mode of arrival: ambulatory Limitations: no limitations History of Present Illness HPI narrative: This is a 71 year old female that presents to the ER for upper chest pain ongoing over the last week. Reports she has had progressive pain when swallowing. Her pain only happens when she attempts to swallow. Yesterday she also had some nausea and vomiting when attempting to eat. She has been able to eat okay today. The pain is a squeezing pain. Denies fever, cough, shortness of breath, or abdominal pain. Related Data Home Medications Medication Instructions Recorded Confirmed aspirin 81 mg tablet 81 mg PO DAILY 07/12/20 07/09/21 albuterol sulfate 90 mcg/actuation 2 puff inhalation Q6-8H PRN 01/06/21 07/09/21 aerosol inhaler (Ventolin HFA) Shortness Of Breath amiodarone 200 mg tablet 200 mg PO DAILY 01/06/21 07/09/21 atorvastatin 20 mg tablet 20 mg PO DAILY 01/06/21 07/09/21 losartan 50 mg tablet 50 mg PO DAILY 01/06/21 07/09/21 metformin 500 mg tablet 500 mg PO BID 01/06/21 07/09/21 roflumilast 500 mcg tablet 500 mcg PO DAILY 01/06/21 07/09/21 (Daliresp) sertraline 50 mg tablet 50 mg PO DAILY 01/06/21 07/09/21 fluticasone fur. 100 mcg-umeclid 1 inh inhalation DAILY 01/07/21 07/09/21 62.5 mcg-vilant 25 mcg inhalat.powder (Trelegy Ellipta) hydrocodone 10 mg-acetaminophen 1 tablet PO Q4-6H PRN Pain 01/07/21 07/09/21 325 mg tablet potassium chloride 20 mEq 20 meq PO DAILY 05/06/21 07/09/21 tablet,extended release Allergies Allergy/AdvReac Type Severity Reaction Status Date / Time morphine Allergy Intermediate Itching Verified 08/27/21 17:59 pregabalin Allergy Intermediate Itching Verified 08/27/21 17:59 Review of Systems Review of Systems: CONSTITUTIONAL: Denies fever CARDIOVASCULAR: Reports chest pain. Denies edema. RESPIRATORY: Denies dyspnea. GASTROINTESTINAL: Reports nausea and vomiting. Denies abdominal pain All systems reviewed & are unremarkable except as noted in HPI and below PMFSH Past Medical History Medical History (Updated 08/27/21 @ 20:21 by Miranda Rodriguez PA-C) Anemia Anemia Anxiety Arthritis Chronic anemia Chronic kidney disease, stage 3 Chronic obstructive pulmonary disease Chronic respiratory failure with hypoxia Chronically on oxygen at 4 - 5 L per nasal cannula. Closed intertrochanteric fracture of right hip (10/2019) Treated non operatively. Congestive heart failure Diastolic with most recent echocardiogram January 2019 demonstrating paradoxical septal motion consistent with right ventricular volume overload or elevated right ventricular end-diastolic pressure, EF 60-65%, mildly increased left ventricular wall thickness, grade 1 diastolic dysfunction, severely reduced right ventricular systolic function, severely enlarged right ventricular chamber, severely enlarged right atrial chamber, [id number] mitral valve regurgitation, trace tricuspid regurgitation, mild pulmonary hypertension with RVSP of 46 Coronary artery disease May 2017: stent x3 to the mid LAD, mid circumflex, and mid RCA. Deemed not to be an operable candidate due to severity of underlying lung disease. 06/2019: stent to the distal RCA, angioplasty to PDA. 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 Paroxysmal atrial fibrillation Paroxysmal supraventricular tachycardia (02/2018) Status post cardiac ablation per Dr. Alvares. Peripheral arterial disease Extensive calcification of the abdominal aorta, renal arteries, celiac and mesenteric arteries, iliac and femoral arteries on CT taken 12/12/2020. Peripheral neurop
[2021-08-27 18:31] LABS: Hematocrit 36.2 % (37.0-47.0); Hemoglobin 11.3 g/dL (12.0-15.0); Mean Corpuscular HGB Conc 31.2 g/dl (32-36); Mean Corpuscular Volume 86.6 fl (80-100); Mean Platelet Volume 10.2 fl (7.4-10.4); Platelet Count Result 191 k/mm3 (150-375); Red Blood Count 4.18 M/mm3 (4.2-5.4); Red Cell Distribution Width 15.3 % (11.5-14.5); White Blood Count 8.3 K/mm3 (4.5-10.0)
[2021-08-27 18:48] LABS: Alanine Aminotransferase 16 U/L (6-35); Albumin Level 3.6 g/dL (3.5-5.1); Alkaline Phosphatase 115 U/L (38-126); Anion Gap 4 mmol/L (8-16); Aspartate Amino Transferase 24 U/L (14-36); Bilirubin,Total 0.4 mg/dL (0.2-1.3); Blood Urea Nitrogen 27 mg/dL (7-17); Calcium 8.3 mg/dL (8.4-10.2); Carbon Dioxide 30 mmol/L (22-30); Chloride 103 mmol/L (98-107); Estimated CRCL calculation 29 ml/min; Estimated Glomerular Filt Rate 40; Glucose 109 mg/dL (65-110); Lipase 32 U/L (23-300); Potassium 4.7 mmol/L (3.4-5.0); Sodium 137 mmol/L (137-145)
[2021-08-27 18:52] LABS: Eosinophils Absolute Manual 2.07 K/mm3 (0.02-0.5); Eosinophils Percent Manual 25 % (0-4); INR 1.1; Lymphocytes Absolute Manual 1.49 K/mm3 (1.1-4.5); Lymphocytes Percent Manual 18 % (18-44); Monocytes Absolute Manual 0.33 K/mm3 (0.1-0.90); Monocytes Percent Manual 4 % (3-9); Neutrophils Percent Manual 53 % (46-73); Platelet Estimate Adequate (Adequate); Prothrombin Time 13.8 Seconds (11.1-14.7); Total Cells Counted 100
[2021-08-27 18:54] LABS: Partial Thromboplastin Time 23.6 SECONDS (22.3-36.8)
[2021-08-27] MEDS: PANTOPRAZOLE SODIUM IV 40 MG VIAL IV PUSH (18:55)
[2021-08-27 18:57] LABS: Troponin I < 0.012 ng/mL (0.000-0.034)
[2021-08-27 21:13] LABS: Troponin I 0.013 ng/mL (0.000-0.034)
[2021-08-27 21:33] VITALS: BP 167/74; PULSE 85; RESP 15; O2SAT 99
== END 2021-08-27 21:38 | disposition home or self-care (01) ==
PROVIDERS: Physician Assistant; Emergency Provider Preventive Medicine Aerospace Medicine; PCP Family Medicine Sports Medicine
DX: K20.90 Esophagitis, unspecified without bleeding (principal); J96.11 Chronic respiratory failure with hypoxia; J44.9 Chronic obstructive pulmonary disease, unspecified; I25.10 Atherosclerotic heart disease of native coronary artery without angina pectoris; I48.0 Paroxysmal atrial fibrillation; I50.9 Heart failure, unspecified; I13.0 Hypertensive heart and chronic kidney disease with heart failure and stage 1 through stage 4 chronic kidney disease, or unspecified chronic kidney disease; N18.30 Chronic kidney disease, stage 3 unspecified; E11.22 Type 2 diabetes mellitus with diabetic chronic kidney disease; E11.42 Type 2 diabetes mellitus with diabetic polyneuropathy; E11.51 Type 2 diabetes mellitus with diabetic peripheral angiopathy without gangrene; I73.9 Peripheral vascular disease, unspecified; D64.9 Anemia, unspecified; E78.5 Hyperlipidemia, unspecified; K21.9 Gastro-esophageal reflux disease without esophagitis; G47.33 Obstructive sleep apnea (adult) (pediatric); M19.90 Unspecified osteoarthritis, unspecified site; Z99.81 Dependence on supplemental oxygen; Z87.442 Personal history of urinary calculi; Z98.42 Cataract extraction status, left eye; Z98.41 Cataract extraction status, right eye; Z79.84 Long term (current) use of oral hypoglycemic drugs; Z79.82 Long term (current) use of aspirin; Z87.891 Personal history of nicotine dependence; R94.31 Abnormal electrocardiogram [ECG] [EKG]
CPT/HCPCS: 36415; 71046; 80053; 83690; 84484; 85025; 85610; 85730; 93005; 96374; 99284; C9113

== ENCOUNTER 2021-09-22 00:14 | Day surgery (SDC) | payer MEDICARE, SELFPAY ==
[2021-09-18 10:28] VITALS: BMI 21.3
--- NOTE | 2021-09-22 10:51 | WPDANESEPPF ---
Anes - Initial Pre Proc Eval Procedure: Operation Date: 09/22/21 13:00 Proposed Procedures p Esophagogastroduodenoscopy - Felix Werner MD Date/Time: 09/22/21 10:51 Surgeon: Felix Werner MD Pre Op Diagnosis: atypical chest pain Patient Data Age: 71 Gender: F Height: 1.61 m Weight: 55.5 kg Allergies Allergy/AdvReac Type Severity Reaction Status Date / Time morphine Allergy Intermediate Itching Verified 09/18/21 10:29 pregabalin Allergy Intermediate Itching Verified 09/18/21 10:29 Home Medications Medication Instructions Recorded Confirmed Type aspirin 81 mg tablet 81 mg PO EVERY OTHER DAY 07/12/20 09/18/21 History albuterol sulfate 90 mcg/actuation 2 puff inhalation Q6H PRN 01/06/21 09/18/21 History aerosol inhaler (Ventolin HFA) Shortness Of Breath amiodarone 200 mg tablet 200 mg PO DAILY 01/06/21 09/18/21 History atorvastatin 20 mg tablet 20 mg PO DAILY 01/06/21 09/18/21 History losartan 50 mg tablet 50 mg PO DAILY 01/06/21 09/18/21 History metformin 500 mg tablet 500 mg PO BID 01/06/21 09/18/21 History roflumilast 500 mcg tablet 500 mcg PO DAILY 01/06/21 09/18/21 History (Daliresp) sertraline 50 mg tablet 50 mg PO DAILY 01/06/21 09/18/21 History albuterol sulfate 2.5 mg/3 mL See Rx Instructions .Route 04/06/21 09/18/21 Rx (0.083 %) solution for nebulization .COMPLEX #360 mL polysaccharide iron complex 150 mg 150 mg PO DAILY #90 caps 05/06/21 09/18/21 Rx iron capsule (Ferrex) potassium chloride 20 mEq 20 meq PO DAILY 05/06/21 09/18/21 History tablet,extended release pantoprazole 40 mg tablet,delayed 40 mg PO BID #60 tabs 09/01/21 09/18/21 Rx release sucralfate 1 gram tablet (Carafate) 1 g PO ACHS #120 tabs 09/01/21 09/18/21 Rx prednisone 5 mg tablet See Rx Instructions .Route 09/03/21 09/18/21 Rx .COMPLEX #45 tabs nitroglycerin 0.4 mg sublingual 0.4 mg sublingual Q5M PRN Chest 09/17/21 09/18/21 History tablet Pain acetaminophen 325 mg tablet 325 mg PO Q6H PRN Pain 09/18/21 09/18/21 History fluticasone fur. 100 mcg-umeclid 1 inh inhalation DAILY 09/18/21 09/18/21 History 62.5 mcg-vilant 25 mcg inhalat.powder (Trelegy Ellipta) furosemide 40 mg tablet 40 mg PO DAILY 09/18/21 09/18/21 History hydrocodone 5 mg-acetaminophen 325 1 tablet PO Q6-8H PRN Pain 09/18/21 09/18/21 History mg tablet isosorbide mononitrate 30 mg 30 mg PO DAILY 09/18/21 09/18/21 History tablet,extended release 24 hr magnesium oxide 400 mg PO DAILY 09/18/21 09/18/21 History ondansetron 4 mg disintegrating 4 mg PO Q6H #20 tabs 09/18/21 Rx tablet Patient hx anesthesia problems: none Family hx anesthesia problems: none Results Review: All pre-operative results and documents have been reviewed as part of the pre-operative evaluation. [facility] Past Medical History Medical History Anemia Anemia Anxiety Arthritis Chronic anemia Chronic kidney disease, stage 3 Chronic obstructive pulmonary disease Chronic respiratory failure with hypoxia Chronically on oxygen at 4 - 5 L per nasal cannula. Closed intertrochanteric fracture of right hip (10/2019) Treated non operatively. Congestive heart failure Diastolic with most recent echocardiogram January 2019 demonstrating paradoxical septal motion consistent with right ventricular volume overload or elevated right ventricular end-diastolic pressure, EF 60-65%, mildly increased left ventricular wall thickness, grade 1 diastolic dysfunction, severely reduced right ventricular systolic function, severely enlarged right ventricular chamber, severely enlarged right atrial chamber, [id number] mitral valve regurgitation, trace tricuspid regurgitation, mild pulmonary hypertension with RVSP of 46 Coronary artery disease May 2017: stent x3 to the mid LAD, mid circumflex, and mid RCA. Deemed not to be an operable candidate due to severity of underlying lung disease. 06/2019: radha
[2021-09-22 11:12] VITALS: BP 154/75; PULSE 87; RESP 18; TEMP 36.4; O2SAT 97; BMI 21.3
[2021-09-22 11:37] LABS: Glucose Point of Care 94 mg/dl (65-105)
--- NOTE | 2021-09-22 11:57 | WPDHPUPDATE1 ---
History and Physical Update Update Date/Time: 09/22/21 11:57 History and Physical has been reviewed, including an updated exam of the patient. There are NO changes in the patient's condition. Risks, benefits, and alternatives have been discussed and questions answered. Patient agrees to proceed with procedure.
[2021-09-22] MEDS: LACTATED RINGERS 1,000 ML 150 ML IV CONT (12:00)
[2021-09-22 12:18] VITALS: BP 168/92; PULSE 89; RESP 23; O2SAT 99
[2021-09-22 12:28] VITALS: BP 167/93; PULSE 85; RESP 21; O2SAT 100
[2021-09-22 12:38] VITALS: BP 169/88; PULSE 81; RESP 19; O2SAT 100
== END 2021-09-22 12:52 | disposition home or self-care (01) ==
PROVIDERS: PCP Family Medicine Sports Medicine; Visit Provider Internal Medicine Gastroenterology
PROC: 0DJ08ZZ Inspection of Upper Intestinal Tract, Via Natural or Artificial Opening Endoscopic (ICD-10-PCS; CPT 43235; principal; 2021-09-22 13:00)
DX: R13.10 Dysphagia, unspecified (principal); K29.50 Unspecified chronic gastritis without bleeding; R07.89 Other chest pain; I50.9 Heart failure, unspecified; K44.9 Diaphragmatic hernia without obstruction or gangrene; K22.2 Esophageal obstruction; Z79.82 Long term (current) use of aspirin; Z79.84 Long term (current) use of oral hypoglycemic drugs; Z79.51 Long term (current) use of inhaled steroids; M19.90 Unspecified osteoarthritis, unspecified site; I13.0 Hypertensive heart and chronic kidney disease with heart failure and stage 1 through stage 4 chronic kidney disease, or unspecified chronic kidney disease; D64.9 Anemia, unspecified; N18.30 Chronic kidney disease, stage 3 unspecified; D63.1 Anemia in chronic kidney disease; J44.9 Chronic obstructive pulmonary disease, unspecified; K58.9 Irritable bowel syndrome, unspecified; K21.9 Gastro-esophageal reflux disease without esophagitis; J96.91 Respiratory failure, unspecified with hypoxia; E78.5 Hyperlipidemia, unspecified; G47.33 Obstructive sleep apnea (adult) (pediatric); I73.9 Peripheral vascular disease, unspecified; M06.9 Rheumatoid arthritis, unspecified; G62.9 Polyneuropathy, unspecified; E11.22 Type 2 diabetes mellitus with diabetic chronic kidney disease; Z90.49 Acquired absence of other specified parts of digestive tract; Z95.5 Presence of coronary angioplasty implant and graft; Z87.891 Personal history of nicotine dependence; F12.90 Cannabis use, unspecified, uncomplicated; J96.11 Chronic respiratory failure with hypoxia; I25.10 Atherosclerotic heart disease of native coronary artery without angina pectoris
CPT/HCPCS: 43249; 43239; 82948; 88305; 88342; C1726; J2704; J7120

== ENCOUNTER 2021-10-19 12:33 | Outpatient (CLI) | payer MEDICARE, SELFPAY ==
[2021-10-19 13:00] VITALS: PULSE 117; O2SAT 87
[2021-10-19 13:03] VITALS: PULSE 117; O2SAT 88
[2021-10-19 13:06] VITALS: PULSE 115; O2SAT 91
[2021-10-19 13:20] VITALS: PULSE 115; O2SAT 91
[2021-10-19 13:26] VITALS: PULSE 114; O2SAT 92
--- NOTE | 2021-10-19 13:27 | HOMEO2EVAL ---
Evaluation was performed at [facility] Home Oxygen Evaluation RC: Home Oxygen (O2) Evaluation Start: 10/19/21 13:23 Freq: Status: Active Protocol: RPE Activity Type Activity Date Activity User E-sign Co-sign Detail Recorded Client Recorded Date Recorded By Document 10/19/21 13:00 PK [id number] 10/19/21 13:26 PK Document 10/19/21 13:03 PK [email or web address]_012 10/19/21 13:26 PK Document 10/19/21 13:06 PK RT_012 10/19/21 13:26 PK Document 10/19/21 13:20 PK [email or web address]_012 10/19/21 13:26 PK Document 10/19/21 13:26 [facility] [email or web address] 10/19/21 13:26 [facility] 10/19/21 10/19/21 10/19/21 13:00 13:03 13:06 Home O2 Evaluation Test Phase Resting Resting Resting Oxygen Delivery Room Air Nasal Cannula Nasal Cannula Oxygen Flow Rate (L/min) 1 2 Pulse Oximetry (90-100 %) 87 L 88 L 91 Pulse Rate (60-100 beats/min) 117 H 117 H 115 H Activity Tolerance Good Ambulation Distance (feet) Ambulation Distance (meters) Home Oxygen Evaluation Comments Treatment Charges O2 Evaluation - Outpatient 10/19/21 10/19/21 13:20 13:26 Home O2 Evaluation Test Phase Exercise Resting Oxygen Delivery Nasal Cannula Nasal Cannula Oxygen Flow Rate (L/min) 2 2 Pulse Oximetry (90-100 %) 91 92 Pulse Rate (60-100 beats/min) 115 H 114 H Activity Tolerance Ambulation Distance (feet) 100 Ambulation Distance (meters) 30.47 Home Oxygen Evaluation Comments PATIENT REQUIRES 2LPM WITH REST AND ACTIVITY. Treatment Charges
== END 2021-10-19 12:34 | disposition home or self-care (01) ==
LOC: ANHPFT 12:35
PROVIDERS: PCP Family Medicine Sports Medicine; Visit Provider Physician Assistant
DX: J96.11 Chronic respiratory failure with hypoxia (principal)
CPT/HCPCS: 94618

== ENCOUNTER 2021-11-15 21:47 | Inpatient (IN) | payer MEDICARE, SELFPAY ==
--- NOTE | ~2021-11-15 | CT_ITS ---
EXAMINATION: CTA chest PE protocol DATE: 11/16/2021 10:46 INDICATION: Hypoxia. TECHNIQUE: Computed tomography angiography (CTA) of the chest was performed with 100 mL Omnipaque-350 intravenous contrast timed to evaluate the pulmonary arteries. Coronal maximum intensity projection 3D-reconstructions were created by the technologist. Automated exposure control and iterative reconst ruction technique were employed. The dose-length product was 225.94 mGy-cm. COMPARISON: Chest CT 12/22/2020 FINDINGS: There is moderate emphysema. There are peripheral airspace and groundglass opacities in rig ht lung, worst in right lower lobe. There are peripheral airspace and groundglass opacities in left l ower lobe. There are small pleural effusions, right worse than left. The heart size is normal. There are coronary artery calcifications. No pericardial effusion. There is no pulmonary embolus. There is mild right hilar and mediastinal lymphadenopathy. There is calcified atherosclerosis of the aorta and many of the other arteries. There is a 3.4 cm suprarenal abdominal aortic aneurysm. There is severe stenosis of proximal left subclavian artery. There is mild thoracic spondylosis. IMPRESSION: 1. No pulmonary embolus. 2. Pneumonia involving right lung and left lower lobe. 3. Moderate emphysema. 4. Small pleural effusions. 5. Mild mediastinal and right hilar lymphadenopathy, likely reactive. 6. Severe stenosis of proximal left subclavian artery. 7. 3.4 cm abdominal aortic aneurysm. Reviewed, dictated and finalized at location A.
--- NOTE | ~2021-11-15 | XR_ITS ---
EXAMINATION: XR chest 1V portable DATE: 11/15/2021 22:21 INDICATION: Hypoxia. TECHNIQUE: A single frontal view of the chest was obtained. COMPARISON: Chest 2 views 08/27/2021, chest CT 12/22/2020 FINDINGS: The lungs are hyperexpanded with lucencies and chronic interstitial opacities, consistent w ith emphysema. There are airspace opacities in the peripheral right mid and lower lung zones. No pleu ral effusion or pneumothorax. The heart size is normal. IMPRESSION: 1. New peripheral airspace opacities in peripheral right mid and lower lung zones, consistent with pn eumonia. 2. Emphysema. Reviewed, dictated and finalized at location A. IMPRESSION: 1. New peripheral airspace opacities in peripheral right mid and lower lung zon es, consistent with pneumonia. 2. Emphysema.
[2021-11-15 21:54] VITALS: BP 154/67; PULSE 111; RESP 24; TEMP 37.7; O2SAT 94
--- NOTE | 2021-11-15 21:57 | ECG_ITS ---
Measurements Intervals [place] Rate: 108 P: 68 DC: 155 QRS: -43 QRSD: 112 T: 94 QT: 356 QTc: 478 Interpretive Statements SINUS TACHYCARDIA LEFT AXIS DEVIATION POSSIBLE LEFT ATRIAL ENLARGEMENT INTRAVENTRICULAR CONDUCTION DELAY CANNOT RULE OUT SEPTAL INFARCT, AGE INDETERMINATE ST-T WAVE ABNORMALITY IN LAT/HIGH LAT LEADS- CONSIDER ISCHEMIA BASELINE WANDER- II, III ABNORMAL ECG COMPARED TO ECG 08/27/2021 18:40:55 SINUS TACHYCARDIA NOW PRESENT Electronically Signed On 11-16-2021 6:49:47 CDT by Joshua Bennett D.O.
[2021-11-15 22:09] VITALS: O2SAT 97
[2021-11-15 22:23] VITALS: BP 139/80; PULSE 108; RESP 18; O2SAT 95
[2021-11-15 22:32] LABS: Basophils Percent Auto 0.4 % (0.2-1.2); Eosinophils Absolute Auto 1.3 K/mm3 (0-0.3); Eosinophils Percent Auto 12.8 % (0-4.4); Hematocrit 34.4 % (37.0-47.0); Hemoglobin 10.7 g/dL (12.0-15.0); Immature Granulocyte Absolute 0.04 K/mm3 (0.00-0.031); Immature Granulocyte Percent A 0.4 % (0-0.5); Lymphocytes Absolute Auto 0.94 K/mm3 (0.9-3.2); Lymphocytes Percent Auto 9.5 % (18.3-44.2); Mean Corpuscular HGB Conc 31.1 g/dl (32-36); Mean Corpuscular Hemoglobin 26.7 pg (26-34); Mean Corpuscular Volume 85.8 fl (80-100); Mean Platelet Volume 9.7 fl (7.4-10.4); Monocytes Absolute Auto 0.4 K/mm3 (0.1-0.6); Monocytes Percent Auto 4.4 % (2.6-8.5); Neutrophils Absolute Auto 7.2 K/mm3 (1.3-6.7); Neutrophils Percent Auto 72.5 % (45.5-73.1); Platelet Count Result 179 k/mm3 (150-375); Red Blood Count 4.01 M/mm3 (4.2-5.4); Red Cell Distribution Width 15.2 % (11.5-14.5); White Blood Count 9.9 K/mm3 (4.5-10.0)
--- NOTE | 2021-11-15 22:42 | ED.GENADULT ---
HPI - General Adult General Chief complaint: Nausea/Vomiting/Diarrhea Stated complaint: N/V x2-3 days, Gen weakness Time Seen by Provider: 11/15/21 22:25 History of Present Illness HPI narrative: This is a 71-year-old female presenting to ED with 4 days of feeling unwell. Her symptoms include increased difficulty breathing, Productive cough and multiple episodes of nausea and vomiting per day. Patient has been taking multiple albuterol inhalers at home with no relief. Patient is vaccinated against COVID-19. She has no sick contacts at home. She has a history of CHF is not had any lower extremity edema. Related Data Home Medications Medication Instructions Recorded Confirmed aspirin 81 mg tablet 81 mg PO EVERY OTHER DAY 07/12/20 10/21/21 albuterol sulfate 90 mcg/actuation 2 puff inhalation Q6H PRN 01/06/21 10/21/21 aerosol inhaler (Ventolin HFA) Shortness Of Breath amiodarone 200 mg tablet 200 mg PO DAILY 01/06/21 10/21/21 atorvastatin 20 mg tablet 20 mg PO DAILY 01/06/21 10/21/21 losartan 50 mg tablet 50 mg PO DAILY 01/06/21 10/21/21 metformin 500 mg tablet 500 mg PO BID 01/06/21 10/21/21 sertraline 50 mg tablet 50 mg PO DAILY 01/06/21 10/21/21 potassium chloride 20 mEq 20 meq PO DAILY 05/06/21 10/21/21 tablet,extended release nitroglycerin 0.4 mg sublingual 0.4 mg sublingual Q5M PRN Chest 09/17/21 10/21/21 tablet Pain acetaminophen 325 mg tablet 325 mg PO Q6H PRN Pain 09/18/21 10/21/21 fluticasone fur. 100 mcg-umeclid 1 inh inhalation DAILY 09/18/21 10/21/21 62.5 mcg-vilant 25 mcg inhalat.powder (Trelegy Ellipta) furosemide 40 mg tablet 40 mg PO DAILY 09/18/21 10/21/21 hydrocodone 5 mg-acetaminophen 325 1 tablet PO Q6-8H PRN Pain 09/18/21 10/21/21 mg tablet isosorbide mononitrate 30 mg 30 mg PO DAILY 09/18/21 10/21/21 tablet,extended release 24 hr magnesium oxide 400 mg PO DAILY 09/18/21 10/21/21 Allergies Allergy/AdvReac Type Severity Reaction Status Date / Time morphine Allergy Intermediate Itching Verified 11/15/21 22:57 pregabalin Allergy Intermediate Itching Verified 11/15/21 22:57 Review of Systems Review of Systems: CONSTITUTIONAL: Denies night sweats. EYES: No eye pain ENT: Denies rhinorrhea CARDIOVASCULAR: Denies palpitations RESPIRATORY: Denies hemoptysis GASTROINTESTINAL: Denies hematemesis GENITOURINARY: Denies hematuria. SKIN: Denies rash MUSCULOSKELETAL: Denies myalgia. NEUROLOGIC: Denies weakness. PSYCHIATRIC: Denies delusions [facility] Past Medical History Medical History Anemia Anemia Anxiety Arthritis Chronic anemia Chronic kidney disease, stage 3 Chronic obstructive pulmonary disease Chronic respiratory failure with hypoxia Chronically on oxygen at 4 - 5 L per nasal cannula. Closed intertrochanteric fracture of right hip (10/2019) Treated non operatively. Congestive heart failure Diastolic with most recent echocardiogram January 2019 demonstrating paradoxical septal motion consistent with right ventricular volume overload or elevated right ventricular end-diastolic pressure, EF 60-65%, mildly increased left ventricular wall thickness, grade 1 diastolic dysfunction, severely reduced right ventricular systolic function, severely enlarged right ventricular chamber, severely enlarged right atrial chamber, [id number] mitral valve regurgitation, trace tricuspid regurgitation, mild pulmonary hypertension with RVSP of 46 Coronary artery disease May 2017: stent x3 to the mid LAD, mid circumflex, and mid RCA. Deemed not to be an operable candidate due to severity of underlying lung disease. 06/2019: stent to the distal RCA, angioplasty to PDA. Depression Gastroesophageal reflux disease Generalized osteoarthritis of multiple sites Hyperlipidemia Hyperlipidemia Hypertension Irritable bowel syndrome Kidney stone [place] systemic steroid user Obstructive sleep apnea With last sleep study March 2019 recommending auto
[2021-11-15 22:44] LABS: Alanine Aminotransferase 15 U/L (6-35); Albumin Level 3.6 g/dL (3.5-5.1); Alkaline Phosphatase 77 U/L (38-126); Anion Gap 11 mmol/L (8-16); Aspartate Amino Transferase 25 U/L (14-36); Bilirubin,Total 0.7 mg/dL (0.2-1.3); Blood Urea Nitrogen 25 mg/dL (7-17); Calcium 8.7 mg/dL (8.4-10.2); Carbon Dioxide 32 mmol/L (22-30); Chloride 96 mmol/L (98-107); Estimated CRCL calculation 32 ml/min; Estimated Glomerular Filt Rate 44; Glucose 170 mg/dL (65-110); Potassium 3.9 mmol/L (3.4-5.0); Sodium 139 mmol/L (137-145)
[2021-11-15 22:45] LABS: Lactic Acid Reflex 0.9 mmol/L (0.7-2.0)
[2021-11-15 22:57] LABS: Troponin I 0.057 ng/mL (0.000-0.034)
[2021-11-15] MEDS: cefTRIAXone 2 GM in SODIUM CHLORIDE 0.9% IV 100 ML 200 ML IVPB (22:57)
--- NOTE | 2021-11-15 23:00 | PM.IMHP ---
H&P: HPI History of Present Illness Date/Time: 11/15/21 23:00 Chief Complaint: Weakness and fever. Narrative: This is a 71-year-old female with coronary artery disease, end-stage COPD with chronic respiratory failure on home oxygen, diastolic congestive heart failure, hypertension, type 2 diabetes mellitus, rheumatoid arthritis, and several other comorbidities who presented to the emergency department earlier for evaluation of weakness and fever. She reports cold symptoms for the last 5 days or so with mild headache, sinus congestion, sore throat, and nonproductive cough. She has felt much worse over the past day or so and she is now having quite a bit of nausea and vomiting. Chest x-ray today shows right sided pneumonia and she was found to be positive for SARS-CoV-2 by PCR and she is being admitted in this setting for further treatment. At the time my evaluation she is feeling a bit better and less nauseated. She has not any more short of breath and she is at baseline. She has not had chest pain or pleuritic pain. No hematemesis. No diarrhea. Review of Systems Review of Systems: Twelve systems were reviewed. It is not unusual for her to have occasional chest squeezing and she is followed by Dr. Farr. She was recently prescribed a new medication to help with her anginal symptoms though she does not recall the name of that. Except as documented, all other systems were reviewed and are negative. [facility] Past Medical History Medical History (Updated 11/16/21 @ 01:34 by Kitty Dhaliwal PA-C) Anemia Anemia Anxiety Arthritis Chronic anemia Chronic kidney disease, stage 3 Chronic obstructive pulmonary disease Chronic respiratory failure with hypoxia Chronically on oxygen at 4 - 5 L per nasal cannula. Chronic respiratory failure with hypoxia Closed intertrochanteric fracture of right hip (10/2019) Treated non operatively. Congestive heart failure Diastolic with most recent echocardiogram January 2019 demonstrating paradoxical septal motion consistent with right ventricular volume overload or elevated right ventricular end-diastolic pressure, EF 60-65%, mildly increased left ventricular wall thickness, grade 1 diastolic dysfunction, severely reduced right ventricular systolic function, severely enlarged right ventricular chamber, severely enlarged right atrial chamber, [id number] mitral valve regurgitation, trace tricuspid regurgitation, mild pulmonary hypertension with RVSP of 46 Coronary artery disease May 2017: stent x3 to the mid LAD, mid circumflex, and mid RCA. Deemed not to be an operable candidate due to severity of underlying lung disease. 06/2019: stent to the distal RCA, angioplasty to PDA. Depression Gastroesophageal reflux disease Generalized osteoarthritis of multiple sites Hyperlipidemia Hyperlipidemia Hypertension Irritable bowel syndrome Kidney stone [facility] systemic steroid user Obstructive sleep apnea With last sleep study March 2019 recommending auto bilevel with 5 L of oxygen. Paroxysmal atrial fibrillation Paroxysmal supraventricular tachycardia (02/2018) Status post cardiac ablation per Dr. Alvares. Peripheral arterial disease Extensive calcification of the abdominal aorta, renal arteries, celiac and mesenteric arteries, iliac and femoral arteries on CT taken 12/12/2020. Peripheral neuropathy Pulmonary nodules Rheumatoid arthritis Subarachnoid hemorrhage (01/17/18) Sustained in a fall, treated conservatively. Type 2 diabetes mellitus Hemoglobin A1c was 6.5% in April 2020. Surgical History Surgical History History of bilateral cataract extraction History of cardiac radiofrequency ablation History of cholecystectomy History of coronary artery stent placement History of hysterectomy History of lithotripsy Status post bilateral foot surgery Family History Family History Bebeto
[2021-11-15] MEDS: IPRATROPIUM BR 0.02% INH SOLN 0.5 MG/2.5 ML VIAL INHALATION (23:18)
[2021-11-15] MEDS: ALBUTEROL SULFATE NEB 2.5 MG/3 ML INH 5 MG INHALATION (23:19)
[2021-11-15 23:24] VITALS: PULSE 99; RESP 14
[2021-11-16] VITALS (17 sets, daily range): BP systolic 133–175; BP diastolic 63–101; PULSE 73–112; RESP 18–24; TEMP 36.4–36.7; O2SAT 92–98; BMI 22.6
[2021-11-16] MEDS: SODIUM CHLORIDE 0.9% IV 1,000 ML 999 ML IV CONT (00:08)
[2021-11-16 01:13] LABS: SARS-CoV-2 RNA PCR Positive
[2021-11-16 02:08] LABS: INR 1.2; Prothrombin Time 15.2 Seconds (11.1-14.7)
[2021-11-16 02:09] LABS: Alanine Aminotransferase 15 U/L (6-35); Estimated CRCL calculation 32 ml/min; Estimated Glomerular Filt Rate 44
[2021-11-16 02:17] LABS: Troponin I 0.052 ng/mL (0.000-0.034)
[2021-11-16] MEDS: REMDESIVIR 200 MG/NS 250 ML 200 MG/250 ML BAG 250 MG IVPB (02:35)
[2021-11-16 03:54] LABS: Appearance Urine Slightly Cloudy (Clear); Bilirubin Urine 1+ (Negative); Blood Urine Negative (Negative); Color Urine Amber (Yellow); Glucose Urine UA Negative (Negative); Ketones Urine Negative (Negative); Leukocyte Esterase Ur 1+ LEU/UL (Negative); Nitrate Urine Negative (Negative); Protein Urine 1+ mg/dL (Negative); Urobilinogen Urine 0.2 mg/dL (<2.0)
[2021-11-16 04:00] LABS: Squamous Epithelial Cell Urine Many /hpf (Few)
[2021-11-16 04:01] LABS: Add Urine Microscopic? YES
[2021-11-16] MEDS: ACETAMINOPHEN 325 MG TABLET PO ×2 (04:34→12:28)
--- NOTE | 2021-11-16 04:56 | PC.NURSE ---
reported trops to WILDLIFE ECOLOGY PROFESSOR Josse 0.057 and 0.052
--- NOTE | 2021-11-16 05:03 | PC.NURSE ---
ua sent to lab for analysis
[2021-11-16] MEDS: OXYMETAZOLINE HCL 0.05% NAS 15 ML BTL (*BKC) 1 SPRAY NASAL (05:37)
[2021-11-16 05:57] LABS: Anion Gap 8 mmol/L (8-16); Blood Urea Nitrogen 25 mg/dL (7-17); Calcium 8.1 mg/dL (8.4-10.2); Carbon Dioxide 29 mmol/L (22-30); Chloride 100 mmol/L (98-107); Estimated CRCL calculation 32 ml/min; Estimated Glomerular Filt Rate 44; Glucose 149 mg/dL (65-110); Sodium 137 mmol/L (137-145)
[2021-11-16 06:08] LABS: Troponin I 0.052 ng/mL (0.000-0.034)
[2021-11-16 06:16] LABS: Procalcitonin 2.3 ng/mL
--- NOTE | 2021-11-16 06:47 | PC.NURSE ---
called son Winston to clarify medication pt medication list looks like it is missing medication pt unsure what medication she takes, provider CRATE BUILDER Josse aware.
--- NOTE | 2021-11-16 07:06 | PC.NURSE ---
This patient, Piedad Andrade, was admitted to 3 [facility] Surg Room 309-01. Patient/family oriented to hospital policies and general routines including ID bracelet, bed and alarms, visiting hours, pain management, procedures, bathroom and other care routines, personal items, smoking policy, room service/diet, and visiting hours. Information on how to activate the Rapid Response Team has been discussed. Patient/Family are encouraged to report perceived risks to care and to ask questions if they do not understand what they are told or what they should do. 343 from ed, report received from [facility]
[2021-11-16 12:15] LABS: Glucose Point of Care 145 mg/dl (65-105)
[2021-11-16] MEDS: AMIODARONE HCL 200 MG TABLET PO (12:28)
[2021-11-16] MEDS: DOXYCYCLINE HYCLATE 100 MG TABLET PO ×2 (12:28→22:07)
[2021-11-16] MEDS: ENOXAPARIN 40 MG/0.4 ML SYRINGE SUB-Q (12:28)
[2021-11-16] MEDS: PANTOPRAZOLE 40 MG TABLET PO (12:28)
[2021-11-16] MEDS: SERTRALINE HCL 50 MG TABLET PO (12:29)
[2021-11-16] MEDS: ISOSORBIDE MONONITRATE 30 MG TAB.ER.24H PO (12:29)
[2021-11-16] MEDS: ATORVASTATIN 20 MG TABLET PO (12:29)
[2021-11-16] MEDS: MAGNESIUM OXIDE 400 MG TABLET PO (12:29)
--- NOTE | 2021-11-16 14:34 | WPDCDIQUERY2 ---
CDI Query Clarification Request 11/15 Hospitalist documented: Pneumonia: ?Code(s): J18.9 - Pneumonia, unspecified organism ?Status:?Acute ?Assessment and Plan: Empiric antibiotics for possible concomitant bacterial pneumonia given findings on chest x-ray. Attempt sputum for culture. Please clarify if Pneumonia is associated with Covid 19 or unable to determine. If you agree please add to problem list.
--- NOTE | 2021-11-16 16:02 | PM.IMPN ---
Progress Note: A&P Assessment and Plan (1) Chronic respiratory failure with hypoxia: Code(s): J96.11 - Chronic respiratory failure with hypoxia Status: Acute Assessment and Plan: Chronically on 4 liters nasal cannula at rest and with exertion. Required up to 6 L admission, but now has been weaned and maintaining adequate O2 sats on 1 L (2) COVID: Code(s): U07.1 - COVID-19 Status: Acute Assessment and Plan: symptom onset 11/12. positive PCR 11/15. Continue dexamethasone and remdesivir #2. Monitor LFTs. Continue supportive care. Monitor inflammatory markers. continue isolation precautions. Patient completed COVID vaccination and 2 boosters (3) Pneumonia: Code(s): J18.9 - Pneumonia, unspecified organism Status: Acute Assessment and Plan: Chest x-ray shows and infiltrate/consolidation at the right base, more in the periphery, and some infiltrates at the left base as well. suspect secondary bacterial pneumonia. Continue ceftriaxone. Azithromycin changed to doxycycline today in light of QTc ( patient on amiodarone). sputum culture ordered, awaiting collection. Supportive care as above (4) Chronic kidney disease, stage 3: Code(s): N18.30 - Chronic kidney disease, stage 3 unspecified Status: Acute Assessment and Plan: Renal function is stable on review of previous labs. patient did receive contrast today for chest CTA. Losartan, metformin, furosemide held to avoid any further kidney injury. Monitor closely (5) Chronic anemia: Code(s): D64.9 - Anemia, unspecified Status: Chronic Assessment and Plan: Stable on review of previous labs. (6) Hypertension: Code(s): I10 - Essential (primary) hypertension Status: Acute Assessment and Plan: Blood pressures were reviewed and they have been stable. last BP 133/63. Continue antihypertensives and monitor. (7) Type 2 diabetes mellitus: Code(s): E11.9 - Type 2 diabetes mellitus without complications Status: Acute Assessment and Plan: blood sugars have been well controlled. Monitor closely while on IV steroids. Continuesliding scale insulin, Accu-Cheks, and hypoglycemic protocol. Check hemoglobin A1c. (8) Elevated troponin: Code(s): R77.8 - Other specified abnormalities of plasma proteins Status: Acute Assessment and Plan: Mild elevation with flat trend. EKG shows a sinus tachycardia with some subtle ST depression in V5 and V6. She is not having any chest pain and is unlikely that this is indicative of acute coronary syndrome. PE ruled out by CTA. Subjective Date/time seen: 11/16/21 16:02 Interval history: date of service: 11/16/2021 Piedad Andrade is a 71-year-old female with a history of CKD, COPD, chronic respiratory failure on supplemental oxygen, CAD, hypertension, hyperlipidemia, JOAQUIN on CPAP, paroxysmal atrial fibrillation not on anticoagulation, presumably due to history of subarachnoid hemorrhage, and several other medical problems who is seen in follow-up for pneumonia. She is feeling okay today. She does endorse some chest tightness. she has nonproductive cough. Denies shortness of breath.She was upset that nursing staff decreased her supplemental oxygen levels. Explained that O2 sats are monitored and hers are stable and goal is to wean oxygen to stable levles. Pt expressed understanding. Patients present at the bedside (unclear why due to visitor restriction with COVID + pts) inquired why his son was called for information but he was not. Nursing staff informed that is first radio time salesperson. , Isidoro, also concerned regarding inpatient vs observation status as he was incorrectly informed she would need to take meds from home, and now is concerned about hospital bill being higher taking hospital medications. Discussed with pediatric critical care nurse who will contact Isidoro to discuss. Isidoro bazzi
[2021-11-16 16:39] LABS: Glucose Point of Care 160 mg/dl (65-105)
[2021-11-16] MEDS: REMDESIVIR 100 MG/NS 250 ML 100 MG/250 ML BAG 250 MG IVPB (23:07)
[2021-11-17] VITALS (15 sets, daily range): BP systolic 153–194; BP diastolic 83–96; PULSE 83–118; RESP 18; TEMP 36.2–36.3; O2SAT 90–98
[2021-11-17 06:00] LABS: Hemoglobin 9.9 g/dL (12.0-15.0); Mean Corpuscular HGB Conc 30.9 g/dl (32-36); Mean Corpuscular Hemoglobin 26.7 pg (26-34); Mean Corpuscular Volume 86.3 fl (80-100); Mean Platelet Volume 9.6 fl (7.4-10.4); Platelet Count Result 167 k/mm3 (150-375); Red Blood Count 3.71 M/mm3 (4.2-5.4); Red Cell Distribution Width 15.3 % (11.5-14.5); White Blood Count 5.7 K/mm3 (4.5-10.0)
[2021-11-17 06:15] LABS: Alanine Aminotransferase 18 U/L (6-35); Albumin Level 2.9 g/dL (3.5-5.1); Alkaline Phosphatase 73 U/L (38-126); Anion Gap 6 mmol/L (8-16); Aspartate Amino Transferase 24 U/L (14-36); Bilirubin,Total 0.3 mg/dL (0.2-1.3); Blood Urea Nitrogen 28 mg/dL (7-17); Calcium 8.7 mg/dL (8.4-10.2); Carbon Dioxide 31 mmol/L (22-30); Chloride 102 mmol/L (98-107); Estimated CRCL calculation 34 ml/min; Estimated Glomerular Filt Rate 49; Glucose 107 mg/dL (65-110); Lactate Dehydrogenase 151 U/L (120-246); Potassium 4.8 mmol/L (3.4-5.0); Sodium 139 mmol/L (137-145)
[2021-11-17 06:44] LABS: INR 1.4; Prothrombin Time 16.2 Seconds (11.1-14.7)
[2021-11-17] MEDS: amLODIPine BESYLATE 5 MG TABLET PO (06:54)
[2021-11-17 06:59] LABS: Hemoglobin A1C 6.5 % (<5.7)
[2021-11-17 07:55] LABS: Glucose Point of Care 94 mg/dl (65-105)
[2021-11-17] MEDS: ISOSORBIDE MONONITRATE 30 MG TAB.ER.24H PO (09:29)
[2021-11-17] MEDS: ASPIRIN 81 MG CHEWABLE TABLET PO (09:29)
[2021-11-17] MEDS: FUROSEMIDE 40 MG TABLET PO (09:30)
[2021-11-17] MEDS: LOSARTAN POTASSIUM 50 MG TABLET PO (09:30)
[2021-11-17] MEDS: MAGNESIUM OXIDE 400 MG TABLET PO (09:30)
[2021-11-17] MEDS: SERTRALINE HCL 50 MG TABLET PO (09:30)
[2021-11-17] MEDS: ATORVASTATIN 20 MG TABLET PO (09:30)
[2021-11-17] MEDS: PANTOPRAZOLE 40 MG TABLET PO (09:30)
[2021-11-17] MEDS: DOXYCYCLINE HYCLATE 100 MG TABLET PO ×2 (09:30→20:42)
[2021-11-17] MEDS: ENOXAPARIN 40 MG/0.4 ML SYRINGE SUB-Q (09:31)
[2021-11-17] MEDS: AMIODARONE HCL 200 MG TABLET PO (09:34)
[2021-11-17 11:40] LABS: Glucose Point of Care 131 mg/dl (65-105)
[2021-11-17] MEDS: ACETAMINOPHEN 325 MG TABLET PO ×2 (13:06→20:42)
--- NOTE | 2021-11-17 16:06 | PM.IMPN ---
Progress Note: A&P Assessment and Plan (1) COVID: Code(s): U07.1 - COVID-19 Status: Acute Assessment and Plan: symptom onset 11/12. positive PCR 11/15. Continue dexamethasone and remdesivir #3. Monitor LFTs. Continue supportive care. Monitor inflammatory markers. continue isolation precautions. Patient completed COVID vaccination and 2 boosters (2) Pneumonia: Code(s): J18.9 - Pneumonia, unspecified organism Status: Acute Assessment and Plan: Chest x-ray shows infiltrate/consolidation at the right base, more in the periphery, and some infiltrates at the left base as well. suspect secondary bacterial pneumonia. Continue ceftriaxone and doxycycline. Sputum culture ordered, awaiting collection. Supportive care as above. incentive spirometry and Cornet valve. Guaifenesin 600 mg BID. (3) Chronic respiratory failure with hypoxia: Code(s): J96.11 - Chronic respiratory failure with hypoxia Status: Acute Assessment and Plan: Chronically on 4 liters nasal cannula at rest and with exertion. Required up to 6 L admission, but now has been weaned and maintaining adequate O2 sats on 2 L (4) Chronic kidney disease, stage 3: Code(s): N18.30 - Chronic kidney disease, stage 3 unspecified Status: Acute Assessment and Plan: Renal function is stable on review of previous labs. Received contrast for CTA on 11/16, metformin on hold. Losartan and furosemide resumed for BP control. Monitor renal function closely (5) Chronic anemia: Code(s): D64.9 - Anemia, unspecified Status: Chronic Assessment and Plan: Stable on review of previous labs. (6) Hypertension: Code(s): I10 - Essential (primary) hypertension Status: Acute Assessment and Plan: Blood pressures were reviewed and have been elevated today, likely due to pain and holding of nephrotoxic antihypertensives. Losartan and furosemide resumed. Will add prn hydralazine for SBP >170. Monitor BP trends. Adequate pain control. (7) Type 2 diabetes mellitus: Code(s): E11.9 - Type 2 diabetes mellitus without complications Status: Acute Assessment and Plan: A1c 6.5. Blood sugars have been well controlled. Monitor closely while on IV steroids. Continue sliding scale insulin, Accu-Cheks, and hypoglycemic protocol. (8) Elevated troponin: Code(s): R77.8 - Other specified abnormalities of plasma proteins Status: Acute Assessment and Plan: Mild elevation with flat trend. EKG shows a sinus tachycardia with some subtle ST depression in V5 and V6. No active chest pain, unlikely that this is indicative of acute coronary syndrome. PE ruled out by CTA. (9) Paroxysmal atrial fibrillation: Code(s): I48.0 - Paroxysmal atrial fibrillation Status: Chronic Assessment and Plan: Rate is controlled. Continue amiodarone. Not on anticoagulation, likely due to bleeding risk. (10) Subclavian artery stenosis, left: Code(s): I77.1 - Stricture of artery Status: Acute Assessment and Plan: Severe stenosis of proximal left subclavian artery noted on CTA.? Patient will need outpatient follow-up with vascular surgery.? Avoid blood pressure checks on left arm (11) Abdominal aortic aneurysm: Code(s): I71.4 - Abdominal aortic aneurysm, without rupture Status: Acute Assessment and Plan: 3.4 cm abdominal aortic aneurysm noted.? Will need outpatient surveillance. Subjective Date/time seen: 11/17/21 16:06 Interval history: date of service: 11/17/2021 Piedad Andrade is a 71-year-old female with a history of CKD, COPD, chronic respiratory failure on supplemental oxygen, CAD, hypertension, hyperlipidemia, JOAQUIN on CPAP, paroxysmal atrial fibrillation not on anticoagulation, presumably due to history of subarachnoid hemorrhage, and several other medical problems who is seen in follow-up for pneu
[2021-11-17 17:03] LABS: Glucose Point of Care 158 mg/dl (65-105)
--- NOTE | 2021-11-17 19:04 | PHAR ---
DRUG NAME: VICKYKING INGREDIENTS: ROFLUMILAST -- 500 MCG RELATED DOCUMENTS: DRUGDEX EVALUATIONS - ROFLUMILAST COLOR: WHITE SHAPE: [place] IMPRINT: 500 , D FORM: ORAL TABLET
[2021-11-17] MEDS: guaiFENesin 12 HR 600 MG TABCR PO (20:42)
[2021-11-17] MEDS: hydrALAZINE HCL 20 MG/ML VIAL 10 MG IV PUSH (20:42)
[2021-11-17] MEDS: REMDESIVIR 100 MG/NS 250 ML 100 MG/250 ML BAG 250 MG IVPB (21:48)
[2021-11-17 21:59] LABS: Glucose Point of Care 157 mg/dl (65-105)
[2021-11-17] MEDS: CALCIUM CARBONATE (TUMS) 500 MG (200 MG ELEMENTAL) PO (22:21)
[2021-11-18] VITALS (13 sets, daily range): BP systolic 160–210; BP diastolic 82–105; PULSE 88–128; RESP 12–20; TEMP 35.9–36.7; O2SAT 88–97
[2021-11-18] MEDS: hydrALAZINE HCL 20 MG/ML VIAL 10 MG IV PUSH ×2 (05:58→23:40)
[2021-11-18 06:48] LABS: Hemoglobin 10.6 g/dL (12.0-15.0); Mean Corpuscular HGB Conc 31.2 g/dl (32-36); Mean Corpuscular Hemoglobin 26.3 pg (26-34); Mean Corpuscular Volume 84.4 fl (80-100); Platelet Count Result 237 k/mm3 (150-375); Red Blood Count 4.03 M/mm3 (4.2-5.4); Red Cell Distribution Width 15.4 % (11.5-14.5); White Blood Count 4.9 K/mm3 (4.5-10.0)
[2021-11-18 06:57] LABS: INR 1.2
[2021-11-18 07:11] LABS: Alanine Aminotransferase 17 U/L (6-35); Albumin Level 3.2 g/dL (3.5-5.1); Alkaline Phosphatase 74 U/L (38-126); Anion Gap 10 mmol/L (8-16); Aspartate Amino Transferase 24 U/L (14-36); Bilirubin,Total 0.4 mg/dL (0.2-1.3); Blood Urea Nitrogen 41 mg/dL (7-17); Calcium 8.2 mg/dL (8.4-10.2); Carbon Dioxide 27 mmol/L (22-30); Chloride 100 mmol/L (98-107); Estimated CRCL calculation 34 ml/min; Estimated Glomerular Filt Rate 49; Glucose 146 mg/dL (65-110); Potassium 3.6 mmol/L (3.4-5.0); Sodium 137 mmol/L (137-145)
[2021-11-18 07:17] LABS: CRP 15.2 mg/dL (<1.0)
[2021-11-18 08:19] LABS: Glucose Point of Care 121 mg/dl (65-105)
[2021-11-18] MEDS: LOSARTAN POTASSIUM 50 MG TABLET PO (08:33)
[2021-11-18] MEDS: guaiFENesin 12 HR 600 MG TABCR PO ×2 (08:33→20:24)
[2021-11-18] MEDS: DOXYCYCLINE HYCLATE 100 MG TABLET PO ×2 (08:33→20:24)
[2021-11-18] MEDS: SERTRALINE HCL 50 MG TABLET PO (08:33)
[2021-11-18] MEDS: ISOSORBIDE MONONITRATE 30 MG TAB.ER.24H PO (08:33)
[2021-11-18] MEDS: AMIODARONE HCL 200 MG TABLET PO (08:34)
[2021-11-18] MEDS: FUROSEMIDE 40 MG TABLET PO (08:34)
[2021-11-18] MEDS: MAGNESIUM OXIDE 400 MG TABLET PO (08:34)
[2021-11-18] MEDS: ATORVASTATIN 20 MG TABLET PO (08:34)
[2021-11-18] MEDS: ENOXAPARIN 40 MG/0.4 ML SYRINGE SUB-Q (08:34)
[2021-11-18] MEDS: PANTOPRAZOLE 40 MG TABLET PO (08:34)
[2021-11-18] MEDS: CALCIUM CARBONATE (TUMS) 500 MG (200 MG ELEMENTAL) PO (08:48)
[2021-11-18] MEDS: FLUTICASONE/UMECLIDIN/VILANTER 100-62.5-25 MCG ELLIPTA 1 PUFF INHALATION (09:19)
[2021-11-18 11:46] LABS: Glucose Point of Care 163 mg/dl (65-105)
--- NOTE | 2021-11-18 13:04 | PM.IMPN ---
Progress Note: A&P Assessment and Plan (1) COVID: Code(s): U07.1 - COVID-19 Status: Acute Assessment and Plan: Supportive care Nbulizer treatments ora pred for the girls. - Continue remdesivir and follow up if you have any \new or worsening distress. (2) Pneumonia: Code(s): J18.9 - Pneumonia, unspecified organism Status: Acute Assessment and Plan: Post- Covid Saturations are maintained. Conitnue supportive care and recheck vitals often. (3) Chronic respiratory failure with hypoxia: Code(s): J96.11 - Chronic respiratory failure with hypoxia Status: Acute Assessment and Plan: - VSS and recheck in the AM. (4) Chronic kidney disease, stage 3: Code(s): N18.30 - Chronic kidney disease, stage 3 unspecified Status: Acute Assessment and Plan: No change from yesterdauy. Creatinine is still 1.10 and her BUN is still 41 (5) Chronic anemia: Code(s): D64.9 - Anemia, unspecified Status: Chronic Assessment and Plan: Currently stable. (6) Hypertension: Code(s): I10 - Essential (primary) hypertension Status: Acute Assessment and Plan: Currently stann;e (7) Type 2 diabetes mellitus: Code(s): E11.9 - Type 2 diabetes mellitus without complications Status: Acute Assessment and Plan: Chronic in nature. Continue diabetic diet. Hypoglycemic protocol SSI (8) Elevated troponin: Code(s): R77.8 - Other specified abnormalities of plasma proteins Status: Acute Assessment and Plan: Trops are flat Most likely demand iscjhemia. (9) Paroxysmal atrial fibrillation: Code(s): I48.0 - Paroxysmal atrial fibrillation Status: Chronic Assessment and Plan: Continue rate control and any anticoagulation. (10) Subclavian artery stenosis, left: Code(s): I77.1 - Stricture of artery Status: Acute Assessment and Plan: Chest X-Ray? 11/16/21 07:05 IMPRESSION: 1. Mild atelectasis at the lung bases and mild scarring at the lung apices. ? Abdomen/Pelvis CT? 11/16/21 08:22 IMPRESSION: 1. Small sliding hiatal hernia. 2. Severely enlarged prostate. 4. Pt. (11) Abdominal aortic aneurysm: Code(s): I71.4 - Abdominal aortic aneurysm, without rupture Status: Acute Assessment and Plan: coincidential and nice meeting a family member there. Subjective Date/time seen: 11/18/21 13:04 This pt. was examined at the bedside today in interval assessment. She reports that she does not feel that she is back to her baseline as of yet and that she remains breathing heavy with any movement. She has no weakness. She continues to have a cough. NO fevers. She denies any CP, N/V/D/headache, dizziness, or lightheadedness. Review of Systems Review of Systems: All systems reviewed & are unremarkable except as noted in HPI and below Constitutional: Constitutional: Reports as per HPI Exam Const: General: comfortable and no acute distress HENMT: General nose exam: Normal nares present Mouth: Yes moist mucous membranes Eyes: General: appearance normal, both eyes and all related structures Sclera: sclerae normal Pupils: Equal, round and reactive pupils present EOM: EOMs intact bilaterally Neck: Neck: supple and no JVD Thyroid: thyroid normal Carotids: bruit Lymphatic: lymphadenopathy Resp: Effort & Inspection: normal respiratory effort Auscultation: rhonchi throughout Cardio: Rate: regular rate Rhythm: regular rhythm Heart sounds: no gallops, no murmurs and no rubs GI: Inspection: non-distended GI Palp: Yes Soft to palpation, No Tenderness to palpation present (GI) and No Guarding due to palpation present (GI) Skin: General skin exam: normal color and rashes and/or lesions noted Lesions: lesion noted Rashes: rashes noted Neuro: General: gait normal and deep tendon reflexes 2+ bilaterally Speech: normal speech Natalee
[2021-11-18 16:45] LABS: Glucose Point of Care 197 mg/dl (65-105)
[2021-11-18] MEDS: ACETAMINOPHEN 325 MG TABLET PO (20:24)
[2021-11-18 20:42] LABS: Glucose Point of Care 162 mg/dl (65-105)
[2021-11-18] MEDS: REMDESIVIR 100 MG/NS 250 ML 100 MG/250 ML BAG 250 MG IVPB (21:55)
[2021-11-19] VITALS (14 sets, daily range): BP systolic 153–194; BP diastolic 75–96; PULSE 82–97; RESP 16–18; TEMP 36.1–36.7; O2SAT 93–96
[2021-11-19 06:28] LABS: Eosinophils Percent Auto 0.2 % (0-4.4); Hematocrit 34.5 % (37.0-47.0); Hemoglobin 10.7 g/dL (12.0-15.0); Immature Granulocyte Absolute 0.05 K/mm3 (0.00-0.031); Immature Granulocyte Percent A 1.1 % (0-0.5); Lymphocytes Absolute Auto 1.29 K/mm3 (0.9-3.2); Lymphocytes Percent Auto 27.3 % (18.3-44.2); Mean Corpuscular Hemoglobin 26.8 pg (26-34); Mean Corpuscular Volume 86.5 fl (80-100); Monocytes Absolute Auto 0.4 K/mm3 (0.1-0.6); Monocytes Percent Auto 8.3 % (2.6-8.5); Neutrophils Percent Auto 63.1 % (45.5-73.1); Platelet Count Result 265 k/mm3 (150-375); Red Blood Count 3.99 M/mm3 (4.2-5.4); Red Cell Distribution Width 15.6 % (11.5-14.5); White Blood Count 4.7 K/mm3 (4.5-10.0)
[2021-11-19 06:36] LABS: INR 1.2; Prothrombin Time 14.6 Seconds (11.1-14.7)
[2021-11-19 07:01] LABS: Alanine Aminotransferase 15 U/L (6-35); Albumin Level 3.1 g/dL (3.5-5.1); Alkaline Phosphatase 72 U/L (38-126); Anion Gap 9 mmol/L (8-16); Aspartate Amino Transferase 17 U/L (14-36); Bilirubin,Total 0.3 mg/dL (0.2-1.3); Blood Urea Nitrogen 45 mg/dL (7-17); Calcium 8.1 mg/dL (8.4-10.2); Carbon Dioxide 28 mmol/L (22-30); Chloride 102 mmol/L (98-107); Estimated CRCL calculation 26 ml/min; Estimated Glomerular Filt Rate 34; Glucose 133 mg/dL (65-110); Magnesium 1.6 mg/dL (1.6-2.3); Potassium 3.7 mmol/L (3.4-5.0); Sodium 139 mmol/L (137-145)
[2021-11-19 08:07] LABS: Glucose Point of Care 120 mg/dl (65-105)
[2021-11-19] MEDS: FLUTICASONE/UMECLIDIN/VILANTER 100-62.5-25 MCG ELLIPTA 1 PUFF INHALATION (08:20)
[2021-11-19] MEDS: METOPROLOL SUCCINATE EXT REL 25 MG TABCR PO (08:32)
[2021-11-19] MEDS: ISOSORBIDE MONONITRATE 30 MG TAB.ER.24H PO (08:33)
[2021-11-19] MEDS: AMIODARONE HCL 200 MG TABLET PO (08:33)
[2021-11-19] MEDS: ATORVASTATIN 20 MG TABLET PO (08:33)
[2021-11-19] MEDS: PANTOPRAZOLE 40 MG TABLET PO (08:33)
[2021-11-19] MEDS: DOXYCYCLINE HYCLATE 100 MG TABLET PO ×2 (08:33→20:38)
[2021-11-19] MEDS: SERTRALINE HCL 50 MG TABLET PO (08:33)
[2021-11-19] MEDS: ENOXAPARIN 40 MG/0.4 ML SYRINGE SUB-Q (08:33)
[2021-11-19] MEDS: MAGNESIUM OXIDE 400 MG TABLET PO (08:34)
[2021-11-19] MEDS: ASPIRIN 81 MG CHEWABLE TABLET PO (08:34)
[2021-11-19] MEDS: guaiFENesin 12 HR 600 MG TABCR PO ×2 (08:34→20:38)
[2021-11-19] MEDS: LOSARTAN POTASSIUM 50 MG TABLET PO (08:34)
[2021-11-19] MEDS: FUROSEMIDE 40 MG TABLET PO (08:34)
[2021-11-19 11:41] LABS: Glucose Point of Care 174 mg/dl (65-105)
--- NOTE | 2021-11-19 13:46 | P.PNIM_ITS ---
Progress Note: A&P Assessment and Plan (1) COVID: Code(s): U07.1 - COVID-19 Status: Acute Assessment and Plan: * Supportive care * Remdesivir Q24 hrs * Trelegy Ellipta inhaler. * Continue Dexamethasone * COntinue supplemental oxygen. * Maintain isolation. Today is Day #7 of COVID isolation. First symptomatic day was 11/12. * VS and serial labs (2) Pneumonia: Code(s): J18.9 - Pneumonia, unspecified organism Status: Acute Assessment and Plan: * COVID PNA * Stop Doxy. * Stop Rocephin and start Cefdinir to finish a 10 day course. * Cornet and IS * VS and serial labs (3) Chronic respiratory failure with hypoxia: Code(s): J96.11 - Chronic respiratory failure with hypoxia Status: Acute Assessment and Plan: * VSS and recheck in the AM * Continue Steroids * Continue Trellegy Ellipta * Continue Supplemental Oxygen. Home dose is 4L. (4) Chronic kidney disease, stage 3: Code(s): N18.30 - Chronic kidney disease, stage 3 unspecified Status: Acute Assessment and Plan: * At baseline with Cr of 1.5 and BUN of 45. * Continue to monitor (5) Chronic anemia: Code(s): D64.9 - Anemia, unspecified Status: Chronic Assessment and Plan: * Currently stable. (6) Hypertension: Code(s): I10 - Essential (primary) hypertension Status: Acute Assessment and Plan: * Elevated BP today. Pt. is asymptomatic. * Metoprolol Succinate 25 mg po Daily is ordered. * Will monitor (7) Type 2 diabetes mellitus: Code(s): E11.9 - Type 2 diabetes mellitus without complications Status: Chronic Assessment and Plan: * Chronic in nature. * Continue diabetic diet. * Hypoglycemic protocol * SSI (8) Elevated troponin: Code(s): R77.8 - Other specified abnormalities of plasma proteins Status: Acute Assessment and Plan: * Trops are flat * Most likely demand ischemia. (9) Paroxysmal atrial fibrillation: Code(s): I48.0 - Paroxysmal atrial fibrillation Status: Chronic Assessment and Plan: * Continue rate control and any anticoagulation. (10) Subclavian artery stenosis, left: Code(s): I77.1 - Stricture of artery Status: Chronic Assessment and Plan: * Incidental finding (11) Abdominal aortic aneurysm: Code(s): I71.4 - Abdominal aortic aneurysm, without rupture Status: Acute Assessment and Plan: * coincidental finding. Time Spent With Patient Time with patient: 15 - 25 minutes Subjective Date/time seen: 11/19/21 1000 This pt. was examined at the bedside in interval assessment. She appears improved overall today. We have even been able to reduce her oxygen at rest from her home baseline of 4L to 2L, but with exertion, she has required some increase to 3L. She reports that she feels as though she is breathing easier today. We are transitioning her to oral Cefdinir and oral Dexamethasone and today will be her last day of Doxy. This is the 7th day of quarantine with the onset of symptoms being on 11/12/21. Her cough is still present, although it is less. Pt. denies any pain, still endorses increased dyspnea with exertion and she has some weakness, but overall she feels improved. Pt's BP today is notably increased. She is asymptomatic with it. Metoprolol Succinate 25 mg po Daily is started as her pulse can handle it and we will continue to monitor it. Review of Systems Review of Systems: All systems
--- NOTE | 2021-11-19 13:46 | PM.IMPN ---
Progress Note: A&P Assessment and Plan (1) COVID: Code(s): U07.1 - COVID-19 Status: Acute Assessment and Plan: Supportive care Remdesivir Q24 hrs Trelegy Ellipta inhaler. Continue Dexamethasone COntinue supplemental oxygen. Maintain isolation. Today is Day #7 of COVID isolation. First symptomatic day was 11/12. VS and serial labs (2) Pneumonia: Code(s): J18.9 - Pneumonia, unspecified organism Status: Acute Assessment and Plan: COVID PNA Stop Doxy. Stop Rocephin and start Cefdinir to finish a 10 day course. Cornet and IS VS and serial labs (3) Chronic respiratory failure with hypoxia: Code(s): J96.11 - Chronic respiratory failure with hypoxia Status: Acute Assessment and Plan: VSS and recheck in the AM Continue Steroids Continue Trellegy Ellipta Continue Supplemental Oxygen. Home dose is 4L. (4) Chronic kidney disease, stage 3: Code(s): N18.30 - Chronic kidney disease, stage 3 unspecified Status: Acute Assessment and Plan: At baseline with Cr of 1.5 and BUN of 45. Continue to monitor (5) Chronic anemia: Code(s): D64.9 - Anemia, unspecified Status: Chronic Assessment and Plan: Currently stable. (6) Hypertension: Code(s): I10 - Essential (primary) hypertension Status: Acute Assessment and Plan: Elevated BP today. Pt. is asymptomatic. Metoprolol Succinate 25 mg po Daily is ordered. Will monitor (7) Type 2 diabetes mellitus: Code(s): E11.9 - Type 2 diabetes mellitus without complications Status: Chronic Assessment and Plan: Chronic in nature. Continue diabetic diet. Hypoglycemic protocol SSI (8) Elevated troponin: Code(s): R77.8 - Other specified abnormalities of plasma proteins Status: Acute Assessment and Plan: Trops are flat Most likely demand ischemia. (9) Paroxysmal atrial fibrillation: Code(s): I48.0 - Paroxysmal atrial fibrillation Status: Chronic Assessment and Plan: Continue rate control and any anticoagulation. (10) Subclavian artery stenosis, left: Code(s): I77.1 - Stricture of artery Status: Chronic Assessment and Plan: Incidental finding (11) Abdominal aortic aneurysm: Code(s): I71.4 - Abdominal aortic aneurysm, without rupture Status: Acute Assessment and Plan: coincidental finding. Time Spent With Patient Time with patient: 15 - 25 minutes Subjective Date/time seen: 11/19/21 1000 This pt. was examined at the bedside in interval assessment. She appears improved overall today. We have even been able to reduce her oxygen at rest from her home baseline of 4L to 2L, but with exertion, she has required some increase to 3L. She reports that she feels as though she is breathing easier today. We are transitioning her to oral Cefdinir and oral Dexamethasone and today will be her last day of Doxy. This is the 7th day of quarantine with the onset of symptoms being on 11/12/21. Her cough is still present, although it is less. Pt. denies any pain, still endorses increased dyspnea with exertion and she has some weakness, but overall she feels improved. Pt's BP today is notably increased. She is asymptomatic with it. Metoprolol Succinate 25 mg po Daily is started as her pulse can handle it and we will continue to monitor it. Review of Systems Review of Systems: All systems reviewed & are unremarkable except as noted in HPI and below Exam Const: General: comfortable and no acute distress HENMT: General nose exam: Normal nares present Mouth: Yes moist mucous membranes Eyes: General: appearance normal, both eyes and all related structures Sclera: sclerae normal Pupils: Equal, round and reactive pupils present EOM: EOMs intact bilaterally Neck: Neck: supple and no JVD Thyroid: thyroid normal Carotids: bruit Lymphatic: lymphadenopathy Resp:
[2021-11-19 16:27] LABS: Glucose Point of Care 156 mg/dl (65-105)
[2021-11-19] MEDS: CEFDINIR 300 MG CAPSULE PO (20:38)
[2021-11-19] MEDS: hydrALAZINE HCL 20 MG/ML VIAL 10 MG IV PUSH (20:38)
[2021-11-19 20:46] LABS: Glucose Point of Care 176 mg/dl (65-105)
[2021-11-19] MEDS: REMDESIVIR 100 MG/NS 250 ML 100 MG/250 ML BAG 250 MG IVPB (21:14)
--- NOTE | 2021-11-19 22:27 | PCRCNOTE ---
pt refusing use of home cpap unit on 11/19. pt states that it was uncomfortable last night. RT informed pt to call RN if she would like to wear CPAP.
[2021-11-20] VITALS (7 sets, daily range): BP systolic 166–189; BP diastolic 62–80; PULSE 74–83; RESP 16–18; TEMP 36.1–36.2; O2SAT 92–96
[2021-11-20] MEDS: hydrALAZINE HCL 20 MG/ML VIAL 10 MG IV PUSH (05:57)
--- NOTE | 2021-11-20 07:19 | P.DS_ITS ---
DS: Admitting Diagnosis Discharge Date 11/20/2021 Admitting Diagnosis Chronic respiratory failure, COVID, pneumonia, chronic kidney disease stage 3, chronic anemia, hypertension, type 2 diabetes mellitus, elevated troponin, paroxysmal atrial fibrillation DS: Discharge Diagnosis Discharge Diagnosis (1) COVID: Code(s): U07.1 - COVID-19 Status: Acute Assessment and Plan: * Supportive care * Remdesivir Q24 hrs * Trelegy Ellipta inhaler. * Continue Dexamethasone * COntinue supplemental oxygen. * Maintain isolation. Today is Day #7 of COVID isolation. First symptomatic day was 11/12. * VS and serial labs * patient is stable and ready for discharge. * (2) Pneumonia: Code(s): J18.9 - Pneumonia, unspecified organism Status: Acute Assessment and Plan: * COVID PNA * Stop Doxy. * Stop Rocephin and start Cefdinir to finish a 10 day course. * Cornet and IS * VS and serial labs * Discharge home with two additional days of Cefdinir to complete a full course of abx therapy for PNA. She was on Doxycycline prior to the Cefdinir. (3) Chronic respiratory failure with hypoxia: Code(s): J96.11 - Chronic respiratory failure with hypoxia Status: Acute Assessment and Plan: * VSS and recheck in the AM * Continue Steroids * Continue Trellegy Ellipta * Continue Supplemental Oxygen. Home dose is 4L. * Resume home oxygen therapy today. (4) Chronic kidney disease, stage 3: Code(s): N18.30 - Chronic kidney disease, stage 3 unspecified Status: Acute Assessment and Plan: * At baseline with Cr of 1.5 and BUN of 45. * Continue to monitor (5) Chronic anemia: Code(s): D64.9 - Anemia, unspecified Status: Chronic Assessment and Plan: * Currently stable. (6) Hypertension: Code(s): I10 - Essential (primary) hypertension Status: Acute Assessment and Plan: * Elevated BP today. Pt. is asymptomatic. * Metoprolol Succinate 25 mg po Daily is ordered. * Will monitor * BP is Improved with the addition of metoprolol succinate 25 mg p.o. daily in the a.m.. This will be continued at home on discharge. Patient will be required to follow up with her primary care physician for blood pressure check and she will be required to keep a log of her blood pressures at home to take with her to her follow-up appointment. Patient is asymptomatic any hypertension at the time of discharge. (7) Type 2 diabetes mellitus: Code(s): E11.9 - Type 2 diabetes mellitus without complications Status: Chronic Assessment and Plan: * Chronic in nature. * Continue diabetic diet. * Hypoglycemic protocol * SSI (8) Elevated troponin: Code(s): R77.8 - Other specified abnormalities of plasma proteins Status: Acute Assessment and Plan: * Trops are flat * Most likely demand ischemia in the setting of COVID PNA. (9) Paroxysmal atrial fibrillation: Code(s): I48.0 - Paroxysmal atrial fibrillation Status: Chronic Assessment and Plan: * Continue rate control and any anticoagulation. (10) Subclavian artery stenosis, left: Code(s): I77.1 - Stricture of artery Status: Chronic Assessment and Plan: * Incidental finding (11) Abdominal aortic aneurysm: Code(s): I71.4 - Abdominal aortic aneurysm, without rupture Status: Acute Assessment and Plan: * coincidental finding. DS: Summary Hospital Course Reason for hospitalizatio
--- NOTE | 2021-11-20 07:19 | PM.DS ---
DS: Admitting Diagnosis Discharge Date 11/20/2021 Admitting Diagnosis Chronic respiratory failure, COVID, pneumonia, chronic kidney disease stage 3, chronic anemia, hypertension, type 2 diabetes mellitus, elevated troponin, paroxysmal atrial fibrillation DS: Discharge Diagnosis Discharge Diagnosis (1) COVID: Code(s): U07.1 - COVID-19 Status: Acute Assessment and Plan: Supportive care Remdesivir Q24 hrs Trelegy Ellipta inhaler. Continue Dexamethasone COntinue supplemental oxygen. Maintain isolation. Today is Day #7 of COVID isolation. First symptomatic day was 11/12. VS and serial labs patient is stable and ready for discharge. (2) Pneumonia: Code(s): J18.9 - Pneumonia, unspecified organism Status: Acute Assessment and Plan: COVID PNA Stop Doxy. Stop Rocephin and start Cefdinir to finish a 10 day course. Cornet and IS VS and serial labs Discharge home with two additional days of Cefdinir to complete a full course of abx therapy for PNA. She was on Doxycycline prior to the Cefdinir. (3) Chronic respiratory failure with hypoxia: Code(s): J96.11 - Chronic respiratory failure with hypoxia Status: Acute Assessment and Plan: VSS and recheck in the AM Continue Steroids Continue Trellegy Ellipta Continue Supplemental Oxygen. Home dose is 4L. Resume home oxygen therapy today. (4) Chronic kidney disease, stage 3: Code(s): N18.30 - Chronic kidney disease, stage 3 unspecified Status: Acute Assessment and Plan: At baseline with Cr of 1.5 and BUN of 45. Continue to monitor (5) Chronic anemia: Code(s): D64.9 - Anemia, unspecified Status: Chronic Assessment and Plan: Currently stable. (6) Hypertension: Code(s): I10 - Essential (primary) hypertension Status: Acute Assessment and Plan: Elevated BP today. Pt. is asymptomatic. Metoprolol Succinate 25 mg po Daily is ordered. Will monitor BP is Improved with the addition of metoprolol succinate 25 mg p.o. daily in the a.m.. This will be continued at home on discharge. Patient will be required to follow up with her primary care physician for blood pressure check and she will be required to keep a log of her blood pressures at home to take with her to her follow-up appointment. Patient is asymptomatic any hypertension at the time of discharge. (7) Type 2 diabetes mellitus: Code(s): E11.9 - Type 2 diabetes mellitus without complications Status: Chronic Assessment and Plan: Chronic in nature. Continue diabetic diet. Hypoglycemic protocol SSI (8) Elevated troponin: Code(s): R77.8 - Other specified abnormalities of plasma proteins Status: Acute Assessment and Plan: Trops are flat Most likely demand ischemia in the setting of COVID PNA. (9) Paroxysmal atrial fibrillation: Code(s): I48.0 - Paroxysmal atrial fibrillation Status: Chronic Assessment and Plan: Continue rate control and any anticoagulation. (10) Subclavian artery stenosis, left: Code(s): I77.1 - Stricture of artery Status: Chronic Assessment and Plan: Incidental finding (11) Abdominal aortic aneurysm: Code(s): I71.4 - Abdominal aortic aneurysm, without rupture Status: Acute Assessment and Plan: coincidental finding. DS: Summary Hospital Course Reason for hospitalization: Weakness and Fever Hospital Course: This 71-year-old female patient with extensive past medical history but most significant of coronary artery disease, end-stage COPD chronic respiratory failure supplemental home oxygen at 4 L, diastolic congestive heart failure not in acute exacerbation, hypertension, type 2 diabetes mellitus, immunodeficiency who presented to the emergency room on November 15, 2021 with complaints of weakness and fever for 5 days was found to have COVID-19 with a pneumoni
[2021-11-20 07:27] LABS: Basophils Percent Auto 0.2 % (0.2-1.2); Eosinophils Absolute Auto 0.2 K/mm3 (0-0.3); Eosinophils Percent Auto 3.3 % (0-4.4); Hematocrit 35.4 % (37.0-47.0); Hemoglobin 11.1 g/dL (12.0-15.0); Immature Granulocyte Absolute 0.05 K/mm3 (0.00-0.031); Immature Granulocyte Percent A 0.8 % (0-0.5); Lymphocytes Percent Auto 24.6 % (18.3-44.2); Mean Corpuscular HGB Conc 31.4 g/dl (32-36); Mean Corpuscular Volume 86.1 fl (80-100); Mean Platelet Volume 10.1 fl (7.4-10.4); Monocytes Absolute Auto 0.4 K/mm3 (0.1-0.6); Neutrophils Absolute Auto 3.9 K/mm3 (1.3-6.7); Neutrophils Percent Auto 64.1 % (45.5-73.1); Platelet Count Result 248 k/mm3 (150-375); Red Blood Count 4.11 M/mm3 (4.2-5.4); Red Cell Distribution Width 15.6 % (11.5-14.5); White Blood Count 6.1 K/mm3 (4.5-10.0)
[2021-11-20 07:49] LABS: Glucose Point of Care 136 mg/dl (65-105)
[2021-11-20 07:54] LABS: INR 1.2; Prothrombin Time 15.1 Seconds (11.1-14.7)
[2021-11-20 07:55] LABS: Alanine Aminotransferase 14 U/L (6-35); Albumin Level 2.9 g/dL (3.5-5.1); Alkaline Phosphatase 69 U/L (38-126); Anion Gap 8 mmol/L (8-16); Aspartate Amino Transferase 17 U/L (14-36); Bilirubin,Total 0.3 mg/dL (0.2-1.3); Blood Urea Nitrogen 38 mg/dL (7-17); Calcium 8.1 mg/dL (8.4-10.2); Carbon Dioxide 28 mmol/L (22-30); Chloride 105 mmol/L (98-107); Estimated CRCL calculation 32 ml/min; Estimated Glomerular Filt Rate 44; Glucose 124 mg/dL (65-110); Magnesium 1.6 mg/dL (1.6-2.3); Potassium 3.2 mmol/L (3.4-5.0); Sodium 141 mmol/L (137-145)
[2021-11-20] MEDS: guaiFENesin 12 HR 600 MG TABCR PO (08:17)
[2021-11-20] MEDS: ISOSORBIDE MONONITRATE 30 MG TAB.ER.24H PO (08:17)
[2021-11-20] MEDS: LOSARTAN POTASSIUM 50 MG TABLET PO (08:17)
[2021-11-20] MEDS: SERTRALINE HCL 50 MG TABLET PO (08:17)
[2021-11-20] MEDS: ENOXAPARIN 40 MG/0.4 ML SYRINGE SUB-Q (08:17)
[2021-11-20] MEDS: DEXAMETHASONE 2 MG TABLET 6 MG PO (08:17)
[2021-11-20] MEDS: METOPROLOL SUCCINATE EXT REL 25 MG TABCR PO (08:17)
[2021-11-20] MEDS: PANTOPRAZOLE 40 MG TABLET PO (08:18)
[2021-11-20] MEDS: FUROSEMIDE 40 MG TABLET PO (08:18)
[2021-11-20] MEDS: ATORVASTATIN 20 MG TABLET PO (08:18)
[2021-11-20] MEDS: MAGNESIUM OXIDE 400 MG TABLET PO (08:18)
[2021-11-20] MEDS: AMIODARONE HCL 200 MG TABLET PO (08:18)
[2021-11-20 11:19] LABS: Glucose Point of Care 180 mg/dl (65-105)
== END 2021-11-20 12:00 | disposition home or self-care (01) | DRG 177 ==
LOC: ANHED 11-16 01:24 → ANHIMU 11-16 02:13 → ANH3MEDSUR 11-16 02:56
PROVIDERS: Nurse Practitioner Family; Physician Assistant; Admitting Provider Internal Medicine; Emergency Provider Emergency Medicine; PCP Family Medicine Sports Medicine; Visit Provider Nurse Practitioner Adult Health
DX: U07.1 COVID-19 (principal); J12.82 Pneumonia due to coronavirus disease 2019; J96.11 Chronic respiratory failure with hypoxia; I13.0 Hypertensive heart and chronic kidney disease with heart failure and stage 1 through stage 4 chronic kidney disease, or unspecified chronic kidney disease; I50.32 Chronic diastolic (congestive) heart failure; J44.0 Chronic obstructive pulmonary disease with (acute) lower respiratory infection; Z99.81 Dependence on supplemental oxygen; E11.22 Type 2 diabetes mellitus with diabetic chronic kidney disease; N18.30 Chronic kidney disease, stage 3 unspecified; D64.9 Anemia, unspecified; I77.1 Stricture of artery; I71.4 Abdominal aortic aneurysm, without rupture; R77.8 Other specified abnormalities of plasma proteins; I25.10 Atherosclerotic heart disease of native coronary artery without angina pectoris; G47.33 Obstructive sleep apnea (adult) (pediatric); I48.0 Paroxysmal atrial fibrillation; E11.42 Type 2 diabetes mellitus with diabetic polyneuropathy; E11.51 Type 2 diabetes mellitus with diabetic peripheral angiopathy without gangrene; K58.9 Irritable bowel syndrome, unspecified; K21.9 Gastro-esophageal reflux disease without esophagitis; E78.5 Hyperlipidemia, unspecified; M06.9 Rheumatoid arthritis, unspecified; M15.9 Polyosteoarthritis, unspecified; Z98.42 Cataract extraction status, left eye; Z98.41 Cataract extraction status, right eye; Z95.5 Presence of coronary angioplasty implant and graft; Z79.82 Long term (current) use of aspirin; Z79.84 Long term (current) use of oral hypoglycemic drugs
CPT/HCPCS: 36415; 71045; 71275; 80048; 80053; 81001; 82565; 82728; 82948; 83036; 83605; 83615; 83735; 84145; 84460; 84484; 85025; 85027; 85380; 85610; 86140; 93005; 94640; 94667; 94668; 96365; 97161; 97165; 97530; 99285; A9270; C9803; J0248; J0360; J0456; J0696; J1100; J1650; J7030; J8540; Q9967; U0003; U0005

== ENCOUNTER 2022-01-26 11:30 | Emergency (ER) | payer MEDICARE, SELFPAY ==
[2022-01-26 11:43] VITALS: O2SAT 92
[2022-01-26 11:44] VITALS: BP 165/75; PULSE 98; RESP 20; TEMP 36.8; O2SAT 92
--- NOTE | 2022-01-26 12:22 | ED.URI ---
HPI - URI/Sore Throat General Chief Complaint: Upper Respiratory Infection Stated Complaint: Lt Facial Swelling,Nausea,Shortness of Breath Time Seen by Provider: 01/26/22 11:58 Source: patient and family Mode of arrival: ambulatory Limitations: no limitations History of Present Illness HPI Narrative: The patient and the family presents today complaining of 5 day history of dizziness, chills, weakness, nausea and vomiting. Patient states she vomits 1-2 times per day. Last was this morning prior to arrival. She has COPD with chronic cough. States her cough is no worse than normal. She has also developed swelling to the left side of her face these that is very tender. Denies any pain to her teeth. States her oxygen saturation was in the high 70s this morning. History of COPD. Had COVID-19 in October and was hospitalized. Related Data Home Medications Medication Instructions Recorded Confirmed aspirin 81 mg tablet 81 mg PO EVERY OTHER DAY 07/12/20 01/26/22 albuterol sulfate 90 mcg/actuation 2 puff inhalation Q6H PRN 01/06/21 01/26/22 aerosol inhaler (Ventolin HFA) Shortness Of Breath amiodarone 200 mg tablet 200 mg PO DAILY 01/06/21 01/26/22 atorvastatin 20 mg tablet 20 mg PO DAILY 01/06/21 01/26/22 losartan 50 mg tablet 50 mg PO DAILY 01/06/21 01/26/22 metformin 500 mg tablet 500 mg PO DAILY 01/06/21 01/26/22 sertraline 50 mg tablet 100 mg PO DAILY 01/06/21 01/26/22 nitroglycerin 0.4 mg sublingual 0.4 mg sublingual Q5M PRN Chest 09/17/21 01/26/22 tablet Pain acetaminophen 325 mg tablet 325 mg PO Q6H PRN Pain 09/18/21 01/26/22 fluticasone fur. 100 mcg-umeclid 1 inh inhalation DAILY 09/18/21 01/26/22 62.5 mcg-vilant 25 mcg inhalat.powder (Trelegy Ellipta) furosemide 40 mg tablet 40 mg PO DAILY 09/18/21 01/26/22 hydrocodone 5 mg-acetaminophen 325 1 tablet PO Q6-8H PRN Pain 09/18/21 01/26/22 mg tablet magnesium oxide 400 mg PO DAILY 09/18/21 01/26/22 isosorbide mononitrate 30 mg 30 mg PO DAILY 11/16/21 01/26/22 tablet,extended release 24 hr Allergies Allergy/AdvReac Type Severity Reaction Status Date / Time morphine Allergy Intermediate Itching Verified 01/26/22 11:59 pregabalin Allergy Intermediate Itching Verified 01/26/22 11:59 Review of Systems Review of Systems: CONSTITUTIONAL: Denies body aches, fever,or sweats.+ chills EYES: Denies visual changes, redness, or discharge. ENT: Denies rhinorrhea, congestion, sore throat, or otalgia. CARDIOVASCULAR: Denies chest pain, palpitations, or edema. RESPIRATORY: Denies dyspnea.+ chronic cough GASTROINTESTINAL: Denies abdominal pain, or diarrhea.+ nausea and vomiting GENITOURINARY: Denies dysuria or hematuria. SKIN: Denies rash, itching, or wounds.+ facial swelling MUSCULOSKELETAL: Denies back pain, joint pain, or myalgia. NEUROLOGIC: Denies headache, numbness, tingling.+ dizziness, weakness PSYCH: Denies depression or anxiety. [facility] Past Medical History Medical History Anemia Anemia Anxiety Arthritis Chronic anemia Chronic kidney disease, stage 3 Chronic obstructive pulmonary disease Chronic respiratory failure with hypoxia Chronically on oxygen at 4 - 5 L per nasal cannula. Chronic respiratory failure with hypoxia Closed intertrochanteric fracture of right hip (10/2019) Treated non operatively. Congestive heart failure Diastolic with most recent echocardiogram January 2019 demonstrating paradoxical septal motion consistent with right ventricular volume overload or elevated right ventricular end-diastolic pressure, EF 60-65%, mildly increased left ventricular wall thickness, grade 1 diastolic dysfunction, severely reduced right ventricular systolic function, severely enlarged right ventricular chamber, severely enlarged right atrial chamber, [id number] mitral valve regurgitation, trace tricuspid regurgitation, mild pulmonary hypertension with RVSP of 46 Coronary artery disease Calli
== END 2022-01-26 12:23 | disposition short-term general hospital (02) ==
PROVIDERS: Emergency Provider Nurse Practitioner; PCP Family Medicine Sports Medicine
DX: R53.1 Weakness (principal); R11.2 Nausea with vomiting, unspecified; Z20.822 Contact with and (suspected) exposure to COVID-19; I13.0 Hypertensive heart and chronic kidney disease with heart failure and stage 1 through stage 4 chronic kidney disease, or unspecified chronic kidney disease; E11.22 Type 2 diabetes mellitus with diabetic chronic kidney disease; N18.30 Chronic kidney disease, stage 3 unspecified; I50.9 Heart failure, unspecified; Z79.84 Long term (current) use of oral hypoglycemic drugs; F41.9 Anxiety disorder, unspecified; I25.10 Atherosclerotic heart disease of native coronary artery without angina pectoris; F32.A Depression, unspecified; K21.9 Gastro-esophageal reflux disease without esophagitis; E78.5 Hyperlipidemia, unspecified; G47.33 Obstructive sleep apnea (adult) (pediatric); I48.0 Paroxysmal atrial fibrillation; E11.42 Type 2 diabetes mellitus with diabetic polyneuropathy; M06.9 Rheumatoid arthritis, unspecified; Z98.42 Cataract extraction status, left eye; Z98.41 Cataract extraction status, right eye; Z95.5 Presence of coronary angioplasty implant and graft
CPT/HCPCS: 87426; 87804; 99213; C9803; G0463

== ENCOUNTER 2022-01-26 12:42 | Emergency (ER) | payer MEDICARE, SELFPAY ==
--- NOTE | ~2022-01-26 | XR_ITS ---
XR chest 2V 01/26/2022 13:41 Indication: Shortness of breath. Procedure: PA and lateral views of the chest Comparison: Comparison to multiple prior studies sequentially, with oldest reviewed study dated 11/29. Findings: There is chronic bibasilar atelectasis/scarring. Heart size normal. There is atherosclerosi s of the aorta. The lungs are hyperinflated which is consistent with, but not diagnostic of chronic o bstructive pulmonary disease. No acute osseous abnormality. There are cholecystectomy clips. Impression: 1: No acute cardiopulmonary disease. Reviewed, dictated and finalized at location A. [facility] [employer] Impression: 1: No acute cardiopulmonary disease.
[2022-01-26 12:55] VITALS: BP 169/67; PULSE 88; RESP 20; TEMP 37.3; O2SAT 99
== END 2022-01-26 17:33 | disposition left against medical advice (07) ==
LOC: ANHED 17:53
PROVIDERS: Emergency Provider Emergency Medicine; PCP Family Medicine Sports Medicine
DX: R06.02 Shortness of breath (principal)
CPT/HCPCS: 71046; 99199

== ENCOUNTER 2022-04-16 12:12 | Outpatient (CLI) | payer MEDICARE, SELFPAY ==
--- NOTE | ~2022-04-16 | XR_ITS ---
XR chest 2V 04/16/2022 13:51 Indication: Dyspnea. COPD. Procedure: 2 view chest Comparison: Comparison to multiple prior studies sequentially, with oldest reviewed study dated 08/16. Findings: Chronic bibasilar interstitial infiltrates, most likely atelectasis/scarring. Heart size no rmal. There is atherosclerosis and ectasia of the aorta. The lungs are hyperinflated which is consist ent with, but not diagnostic of chronic obstructive pulmonary disease. No focal air space disease, pu lmonary edema, pleural effusion or suspected pneumothorax. Impression: 1: No acute cardiopulmonary disease. No significant change. Reviewed, dictated and finalized at location A. [facility] Impression: 1: No acute cardiopulmonary disease. No significant change.
[2022-04-16 13:23] LABS: Alanine Aminotransferase 17 U/L (6-35); Alkaline Phosphatase 234 U/L (38-126); Anion Gap 5 mmol/L (8-16); Aspartate Amino Transferase 28 U/L (14-36); Bilirubin,Total 0.5 mg/dL (0.2-1.3); Blood Urea Nitrogen 28 mg/dL (7-17); Calcium 8.4 mg/dL (8.4-10.2); Carbon Dioxide 36 mmol/L (22-30); Chloride 92 mmol/L (98-107); Estimated Glomerular Filt Rate 30; Glucose 100 mg/dL (65-110); Potassium 3.5 mmol/L (3.4-5.0); Sodium 133 mmol/L (137-145)
[2022-04-16 13:32] LABS: NT Pro B Type Natriuretic Pept 1790 pg/mL (19.9-100)
== END 2022-04-16 12:13 | disposition home or self-care (01) ==
PROVIDERS: PCP Family Medicine Sports Medicine; Visit Provider Nurse Practitioner Family
DX: J44.9 Chronic obstructive pulmonary disease, unspecified (principal); I50.9 Heart failure, unspecified; R05.9 Cough, unspecified; R06.09 Other forms of dyspnea
CPT/HCPCS: 36415; 71046; 80053; 83880

== ENCOUNTER 2022-06-08 01:54 | Day surgery (SDC) | payer MEDICARE, SELFPAY ==
[2022-05-28 14:45] VITALS: BMI 24.5
[2022-06-08 09:25] LABS: Glucose Point of Care 63 mg/dl (65-105)
--- NOTE | 2022-06-08 09:26 | WPDANESEPPF ---
Anes - Initial Pre Proc Eval Procedure: Operation Date: 06/08/22 10:45 Proposed Procedures p Colonoscopy - Felix Werner MD Date/Time: 06/08/22 09:26 Surgeon: Felix Werner MD Pre Op Diagnosis: positive occult blood, anemia Patient Data Age: 72 Gender: F Height: 1.6 m Weight: 63 kg Allergies Allergy/AdvReac Type Severity Reaction Status Date / Time morphine Allergy Intermediate Itching Verified 06/08/22 09:28 pregabalin Allergy Intermediate Itching Verified 06/08/22 09:28 Home Medications Medication Instructions Recorded Confirmed Type aspirin 81 mg tablet 81 mg PO EVERY OTHER DAY 07/12/20 05/28/22 History albuterol sulfate 90 mcg/actuation 2 puff inhalation Q6H PRN 01/06/21 05/28/22 History aerosol inhaler (Ventolin HFA) Shortness Of Breath atorvastatin 20 mg tablet 20 mg PO DAILY 01/06/21 05/28/22 History losartan 50 mg tablet 50 mg PO DAILY 01/06/21 05/28/22 History metformin 500 mg tablet 500 mg PO BID 01/06/21 05/28/22 History nitroglycerin 0.4 mg sublingual 0.4 mg sublingual Q5M PRN Chest 09/17/21 05/28/22 History tablet Pain acetaminophen 325 mg tablet 325 mg PO Q6H PRN Pain 09/18/21 05/28/22 History fluticasone fur. 100 mcg-umeclid 1 inh inhalation DAILY 09/18/21 05/28/22 History 62.5 mcg-vilant 25 mcg inhalat.powder (Trelegy Ellipta) hydrocodone 5 mg-acetaminophen 325 1 tablet PO Q6-8H PRN Pain 09/18/21 05/28/22 History mg tablet levalbuterol HCl 1.25 mg/3 mL 1.25 mg (3 mL) inhalation TID PRN 02/01/22 05/28/22 Rx solution for nebulization shortness of breath or wheezing #270 mL prednisone 5 mg tablet See Rx Instructions .Route 03/18/22 05/28/22 Rx .COMPLEX #45 tabs bumetanide 1 mg tablet 2 mg PO DAILY 05/28/22 05/28/22 History isosorbide mononitrate 60 mg 60 mg PO DAILY 05/28/22 05/28/22 History tablet,extended release 24 hr ondansetron 4 mg disintegrating 4 mg PO Q6H PRN Nausea 05/28/22 05/28/22 History tablet pantoprazole 40 mg tablet,delayed 40 mg PO BID 05/28/22 05/28/22 History release potassium chloride 20 mEq oral 20 meq PO DAILY 05/28/22 05/28/22 History packet (Klor-Con) sertraline 100 mg tablet 100 mg PO DAILY 05/28/22 05/28/22 History Laboratory Tests 06/08/22 09:23 POC Capillary Glucose 63 mg/dl L mg/dl (65-105) Patient hx anesthesia problems: none Family hx anesthesia problems: none Results Review: All pre-operative results and documents have been reviewed as part of the pre-operative evaluation. [facility] Past Medical History Medical History (Updated 05/19/22 @ 12:32 by Noa Leblanc, [employer]) Anemia Anemia Anxiety Arthritis Chronic anemia Chronic kidney disease, stage 3 Chronic obstructive pulmonary disease Chronic respiratory failure with hypoxia Chronically on oxygen at 4 - 5 L per nasal cannula. Chronic respiratory failure with hypoxia Closed intertrochanteric fracture of right hip (10/2019) Treated non operatively. Congestive heart failure Diastolic with most recent echocardiogram January 2019 demonstrating paradoxical septal motion consistent with right ventricular volume overload or elevated right ventricular end-diastolic pressure, EF 60-65%, mildly increased left ventricular wall thickness, grade 1 diastolic dysfunction, severely reduced right ventricular systolic function, severely enlarged right ventricular chamber, severely enlarged right atrial chamber, [id number] mitral valve regurgitation, trace tricuspid regurgitation, mild pulmonary hypertension with RVSP of 46 Coronary artery disease May 2017: stent x3 to the mid LAD, mid circumflex, and mid RCA. Deemed not to be an operable candidate due to severity of underlying lung disease. 06/2019: stent to the distal RCA, angioplasty to PDA. Depression Esophageal ring Gastroesophageal reflux disease Generalized osteoarthritis of multiple sites GERD (gastroesophageal reflux disease) Hyperlipidemia Hyperlipidemia Hypertensi
[2022-06-08 09:35] VITALS: BP 149/82; PULSE 109; RESP 22; TEMP 36.2; O2SAT 97
[2022-06-08] MEDS: LACTATED RINGERS 1,000 ML 150 ML IV CONT (09:44)
[2022-06-08] MEDS: DEXTROSE 50% 25 GM/50 ML SYRINGE IV PUSH (09:46)
[2022-06-08 10:15] LABS: Glucose Point of Care 153 mg/dl (65-105)
--- NOTE | 2022-06-08 10:21 | WPDHPUPDATE1 ---
History and Physical Update Update Date/Time: 06/08/22 10:21 History and Physical has been reviewed, including an updated exam of the patient. There are NO changes in the patient's condition. Risks, benefits, and alternatives have been discussed and questions answered. Patient agrees to proceed with procedure.
[2022-06-08 10:51] VITALS: BP 129/65; PULSE 90; RESP 20; O2SAT 100
[2022-06-08 11:01] VITALS: BP 144/63; PULSE 93; RESP 21; O2SAT 100
[2022-06-08 11:11] VITALS: BP 154/76; PULSE 94; RESP 20; O2SAT 100
== END 2022-06-08 11:30 | disposition home or self-care (01) ==
PROVIDERS: PCP Family Medicine Sports Medicine; Visit Provider Internal Medicine Gastroenterology
PROC: 0DJD8ZZ Inspection of Lower Intestinal Tract, Via Natural or Artificial Opening Endoscopic (ICD-10-PCS; CPT 45378; principal; 2022-06-08 10:45)
DX: D50.9 Iron deficiency anemia, unspecified (principal); R19.5 Other fecal abnormalities; D12.3 Benign neoplasm of transverse colon; K62.1 Rectal polyp; K57.30 Diverticulosis of large intestine without perforation or abscess without bleeding; K64.4 Residual hemorrhoidal skin tags; K64.8 Other hemorrhoids; I13.0 Hypertensive heart and chronic kidney disease with heart failure and stage 1 through stage 4 chronic kidney disease, or unspecified chronic kidney disease; E11.22 Type 2 diabetes mellitus with diabetic chronic kidney disease; I50.30 Unspecified diastolic (congestive) heart failure; N18.30 Chronic kidney disease, stage 3 unspecified; J96.11 Chronic respiratory failure with hypoxia; Z99.81 Dependence on supplemental oxygen; I25.10 Atherosclerotic heart disease of native coronary artery without angina pectoris; K21.9 Gastro-esophageal reflux disease without esophagitis; F32.A Depression, unspecified; E78.5 Hyperlipidemia, unspecified; G47.33 Obstructive sleep apnea (adult) (pediatric); I48.0 Paroxysmal atrial fibrillation; E11.51 Type 2 diabetes mellitus with diabetic peripheral angiopathy without gangrene; E11.42 Type 2 diabetes mellitus with diabetic polyneuropathy; M06.9 Rheumatoid arthritis, unspecified; F41.9 Anxiety disorder, unspecified; D64.9 Anemia, unspecified; J44.9 Chronic obstructive pulmonary disease, unspecified; Z87.891 Personal history of nicotine dependence; Z79.82 Long term (current) use of aspirin; Z79.51 Long term (current) use of inhaled steroids; Z79.84 Long term (current) use of oral hypoglycemic drugs; Z79.891 Long term (current) use of opiate analgesic; Z95.5 Presence of coronary angioplasty implant and graft
CPT/HCPCS: 45385; 45380; 82948; 88305; 88342; J2704; J7120

== ENCOUNTER 2022-06-16 17:03 | Inpatient (IN) | payer MEDICARE, SELFPAY ==
[2022-06-16] VITALS (31 sets, daily range): BP systolic 115–159; BP diastolic 60–92; PULSE 110–129; RESP 14–35; TEMP 36.6–37.4; O2SAT 90–100
--- NOTE | ~2022-06-16 | US_ITS ---
EXAMINATION:US venous doppler LE BI INDICATION:Pulmonary embolism. TECHNIQUE: Multiple grayscale, color flow and Doppler images of the right and left lower extremity de ep venous systems were obtained and reviewed. COMPARISON:01/01/2020 FINDINGS: The common femoral, superficial femoral and popliteal veins demonstrate normal respiratory variation, augmentation and compressibility. Color flow is also seen within the posterior tibial, pe roneal, greater saphenous and profunda veins. IMPRESSION: 1: No lower extremity deep venous thrombosis. Reviewed, dictated and finalized at location A.
--- NOTE | ~2022-06-16 | XR_ITS ---
EXAMINATION: XR chest 1V portable INDICATION: Shortness of breath TECHNIQUE: Portable AP chest at 1212 hours COMPARISON: 06/16/2022 FINDINGS: Bibasilar airspace opacities persist with interval improvement. No pleural effusion or pneu mothorax. The cardiomediastinal silhouette is stable. IMPRESSION: 1. Persistent but improved bibasilar airspace opacities, consistent with atelectasis and pneumonia. Reviewed, dictated and finalized at location A. IMPRESSION: 1. Persistent but improved bibasilar airspace opacities, consistent with atelec tasis and pneumonia.
--- NOTE | ~2022-06-16 | CT_ITS ---
EXAMINATION: CTA chest PE protocol DATE: 06/16/2022 21:17 CDT INDICATION: Tachycardia. Leg swelling. TECHNIQUE: Computed tomographic angiography (CTA) of the chest was performed with 100 mL Omnipaque-35 0 intravenous contrast. The dose-length product was 476.41 mGy-cm. Maximum intensity projection 3D-re constructions of the aorta and other arteries were constructed by the technologist on a separate work station. Automated exposure control and iterative reconstruction technique were employed. COMPARISON: CT dated 11/16/2021. FINDINGS: Study limited by motion artifact. There are small filling defects in left lower lobe segmen randell and subsegmental pulmonary arteries, small thrombus burden, consistent with pulmonary embolism. T here is right hilar lymphadenopathy. There are interstitial infiltrates with air patchy areas of cons olidation in the right middle and bilateral lower lobes, right greater than left. There are interstit ial infiltrates of the right upper lobe. No endobronchial lesions. No pneumothorax. There is emphysem a. No significant pleural or pericardial effusion. There is mediastinal lymph node enlargement. There is stenosis at the origin of the left subclavian artery. There is extensive atherosclerosis with a s uprarenal abdominal aortic aneurysm measuring 3.6 cm, partially visualized. No acute osseous abnormal ity. IMPRESSION: 1. Pulmonary embolism of the left upper and lower lobe subsegmental pulmonary arteries, small thrombu s burden. 2: Patchy mixed interstitial and airspace disease of all lobes on the right in the left lower lobe, consistent with pneumonia. 3: Mediastinal and right hilar lymphadenopathy, likely reactive. 4: Suprarenal abdominal aortic aneurysm measuring 3.6 cm. Reviewed, dictated and finalized at location A. IMPRESSION: 1. Pulmonary embolism of the left upper and lower lobe subsegmental pulmonary a rteries, small thrombus burden. 2: Patchy mixed interstitial and airspace disease of all lobes on the right in the left lower lobe, consistent with pneumonia. 3: Mediastinal and right hilar lymphadenopathy, likely reactive. 4: Suprarenal abdominal aortic aneurysm measuring 3.6 cm.
--- NOTE | ~2022-06-16 | XR_ITS ---
XR chest 1V portable 06/16/2022 17:38 Indication: Shortness of breath and cough Procedure: AP portable chest Comparison: Comparison to multiple prior studies sequentially, with oldest reviewed study dated 08/27. Findings: There is bibasilar airspace disease, suspicious for pneumonia. There is prominence of the r ight hilum which may represent enlarged pulmonary artery or lymphadenopathy. There is atherosclerosis . Heart size normal. No significant effusion or pneumothorax. Impression: 1: Bibasilar airspace disease, compatible with pneumonia. 2: Prominent right hilum which may represent enlarged pulmonary artery or lymphadenopathy. Reviewed, dictated and finalized at location A. Impression: 1: Bibasilar airspace disease, compatible with pneumonia. 2: Prominent right hilum which may represent enlarged pulmonary artery or lymph adenopathy.
--- NOTE | ~2022-06-16 | XR_ITS ---
EXAMINATION: XR chest 1V portable DATE: 06/22/2022 06:32 INDICATION: Shortness of breath. TECHNIQUE: A single frontal view of the chest was obtained. COMPARISON: Chest single view 06/19/2022, chest CT 06/16/2022 FINDINGS: There are lucencies in the lungs, consistent with emphysema. There are patchy airspace opac ities in right mid and lower lung zones and left lower lung zone. No pleural effusion or pneumothorax . The heart size is normal. IMPRESSION: 1. Patchy airspace opacities in right mid and lower lung zones and left lower lung zone with improvem ent on the right, consistent with pneumonia. 2. Emphysema. Reviewed, dictated and finalized at location A. IMPRESSION: 1. Patchy airspace opacities in right mid and lower lung zones and left lower l jay zone with improvement on the right, consistent with pneumonia. 2. Emphysema.
--- NOTE | 2022-06-16 17:21 | ECG_ITS ---
Measurements Intervals [place] Rate: 111 P: 66 CO: 151 QRS: -37 QRSD: 107 T: 85 QT: 341 QTc: 464 Interpretive Statements SINUS TACHYCARDIA WITH OCCASIONAL SUPRAVENTRICULAR PREMATURE COMPLEXES POSSIBLE LEFT ATRIAL ENLARGEMENT [-0.1mV P WAVE IN V1/V2] MARKED LEFT AXIS DEVIATION [QRS AXIS < -30] COMPARED TO ECG 11/15/2021 22:12:40 NO SIGNIFICANT CHANGES Electronically Signed On 06-17-2022 18:14:59 CDT by Niesha Eller M.D.
--- NOTE | 2022-06-16 17:26 | ED.WEAKNESS ---
HPI - Weakness General Chief complaint: Weakness <Miranda Ceja PA-C - Last Filed: 06/16/22 22:32> Stated complaint: weakness <Miranda Ceja PA-C - Last Filed: 06/16/22 22:32> Time Seen by Provider: 06/16/22 17:09 <Miranda Ceja PA-C - Last Filed: 06/16/22 22:32> History of Present Illness HPI Narrative: Patient is a 72-year-old female with history of COPD and CHF here due to shortness of breath x2 days. Patient states that she has felt very short of breath with minimal exertion and has felt winded and overall fatigued. She wears 3 L O2 at all times and has increased her requirement to 4 L. She has had no chest pain but does report bilateral lower extremity swelling. She has had a productive cough of purulent sputum but no fevers or chills, nausea or vomiting. She has been attempting her nebulizer treatments without improvement. States that she has been considering hospice. She tells me she is DNR/DNI but reportedly told the hospitalist she wants one round of chest compressions. <Miranda Ceja PA-C - Last Filed: 06/16/22 22:32> Related Data Home medications: Home Medications Medication Instructions Recorded Confirmed aspirin 81 mg tablet 81 mg PO EVERY OTHER DAY 07/12/20 06/08/22 albuterol sulfate 90 mcg/actuation 2 puff inhalation Q6H PRN 01/06/21 06/08/22 aerosol inhaler (Ventolin HFA) Shortness Of Breath atorvastatin 20 mg tablet 20 mg PO DAILY 01/06/21 06/08/22 losartan 50 mg tablet 50 mg PO DAILY 01/06/21 06/08/22 metformin 500 mg tablet 500 mg PO BID 01/06/21 06/08/22 nitroglycerin 0.4 mg sublingual 0.4 mg sublingual Q5M PRN Chest 09/17/21 06/08/22 tablet Pain acetaminophen 325 mg tablet 325 mg PO Q6H PRN Pain 09/18/21 06/08/22 fluticasone fur. 100 mcg-umeclid 1 inh inhalation DAILY 09/18/21 06/08/22 62.5 mcg-vilant 25 mcg inhalat.powder (Trelegy Ellipta) hydrocodone 5 mg-acetaminophen 325 1 tablet PO Q6-8H PRN Pain 09/18/21 06/08/22 mg tablet bumetanide 1 mg tablet 2 mg PO DAILY 05/28/22 06/08/22 isosorbide mononitrate 60 mg 60 mg PO DAILY 05/28/22 06/08/22 tablet,extended release 24 hr ondansetron 4 mg disintegrating 4 mg PO Q6H PRN Nausea 05/28/22 06/08/22 tablet pantoprazole 40 mg tablet,delayed 40 mg PO BID 05/28/22 06/08/22 release potassium chloride 20 mEq oral 20 meq PO DAILY 05/28/22 06/08/22 packet (Klor-Con) sertraline 100 mg tablet 100 mg PO DAILY 05/28/22 06/08/22 <Miranda Ceja PA-C - Last Filed: 06/16/22 22:32> Allergies/Adverse reactions: Allergies Allergy/AdvReac Type Severity Reaction Status Date / Time morphine Allergy Intermediate Itching Verified 06/16/22 17:21 pregabalin Allergy Intermediate Itching Verified 06/16/22 17:21 <Miranda Ceja PA-C - Last Filed: 06/16/22 22:32> Review of Systems Review of Systems: Gen.: reports weakness Eyes: Denies eye pain or visual change ENT: Denies congestion Respiratory: reports SOB and cough CV: Denies chest pain or palpitations GI: Denies abdominal pain nausea, emesis or diarrhea denies burning, urgency, frequency or hematuria Musculoskeletal: Denies back pain or muscle pain Neuro: Denies numbness, tingling, weakness or focal weakness Skin: Denies rash Except as documented, all other systems reviewed and negative <Miranda Ceja PA-C - Last Filed: 06/16/22 22:32> FORMERLY [facility] Past Medical History Medical History: Medical History Anemia Anemia Anxiety Arthritis Chronic anemia Chronic kidney disease, stage 3 Chronic obstructive pulmonary disease Chronic respiratory failure with hypoxia Chronically on oxygen at 4 - 5 L per nasal cannula. Chronic respiratory failure with hypoxia Closed intertrochanteric fracture of right hip (10/2019) Treated non operatively. Congestive heart failure Diastolic with most recent echocardiogram January 2019 demonstrating paradoxica
[2022-06-16] MEDS: IPRATROPIUM BR 0.02% INH SOLN 0.5 MG/2.5 ML VIAL 1 MG INHALATION (18:03)
[2022-06-16] MEDS: LEVALBUTEROL NEB 1.25 MG/3 ML INHALATION ×2 (18:03→20:38)
--- NOTE | 2022-06-16 18:05 | PC.NURSE ---
RT at bedside to administer ordered breathing treatment.
[2022-06-16 18:10] LABS: Alveolar/Arterial O2 Gradient 197.4 mmHg; Base Excess ABG 3.5 mEq/l (+/-2.0); Fractional Inspired Oxygen 40 %; HCO3 ABG 28.8 mEq/l (22.0-26.0); Oxygen Content ABG 7.9 %vol (16.0-22.0); PCO2 ABG 47.1 mmHg (35.0-45.0); PO2 FiO2 Ratio Arterial Blood 0.84 %; Total Hemoglobin 9.4 g/dL (12.0-18.0); pH ABG 7.404 (7.350-7.450)
[2022-06-16 18:17] LABS: Modified Allen's Test Pass; Oxygen Saturation ABG 64.2 % (95.0-100.0); Oxyhemoglobin 59.5 % THb (90.0-100.0); PO2 ABG 33.6 mmHg (80.0-100.0); Site Drawn LEFT RADIAL
[2022-06-16 18:18] LABS: Device NASAL CANNULA
--- NOTE | 2022-06-16 18:24 | PC.NURSE ---
2 unsuccessful IV attempts. Requested assistance for IV access.
[2022-06-16] MEDS: SODIUM CHLORIDE 0.9% IV 1,000 ML 999 ML IV CONT (18:58)
[2022-06-16 19:08] LABS: Hematocrit 29.8 % (37.0-47.0); Hemoglobin 8.8 g/dL (12.0-15.0); Mean Corpuscular HGB Conc 29.5 g/dl (32-36); Mean Corpuscular Volume 81.4 fl (80-100); Mean Platelet Volume 10.2 fl (7.4-10.4); Platelet Count Result 209 k/mm3 (150-375); Red Blood Count 3.66 M/mm3 (4.2-5.4); Red Cell Distribution Width 20.2 % (11.5-14.5); White Blood Count 11.2 K/mm3 (4.5-10.0)
--- NOTE | 2022-06-16 19:13 | PC.NURSE ---
Patient report given to TWILA Carrasco. ALl questions answered and care of patient transferred.
[2022-06-16 19:18] LABS: Influenza A QL RT-PCR Negative (Negative); Influenza B QL RT-PCR Negative (Negative); SARS-CoV-2 RNA PCR Negative (Negative)
[2022-06-16 19:19] LABS: INR 1.2
[2022-06-16] MEDS: DOXYCYCLINE 100 MG/NS 100 ML 100 MG/100 ML BAG IVPB (19:24)
[2022-06-16 19:26] LABS: Alanine Aminotransferase 17 U/L (6-35); Albumin Level 3.1 g/dL (3.5-5.1); Alkaline Phosphatase 151 U/L (38-126); Anion Gap 5 mmol/L (8-16); Aspartate Amino Transferase 29 U/L (14-36); Bilirubin,Total 0.6 mg/dL (0.2-1.3); Blood Urea Nitrogen 27 mg/dL (7-17); Calcium 7.7 mg/dL (8.4-10.2); Carbon Dioxide 31 mmol/L (22-30); Chloride 100 mmol/L (98-107); Estimated CRCL calculation 27 ml/min; Estimated Glomerular Filt Rate 37; Glucose 130 mg/dL (65-110); Magnesium 1.3 mg/dL (1.6-2.3); Potassium 4.3 mmol/L (3.4-5.0); Sodium 136 mmol/L (137-145)
[2022-06-16 19:28] LABS: Lactic Acid Reflex 1.1 mmol/L (0.7-2.0)
[2022-06-16 19:37] LABS: Troponin I 0.025 ng/mL (0.000-0.034)
[2022-06-16] MEDS: MAGNESIUM SULFATE 3GM/D5W100ML 3 GM/100 ML BAG IVPB (20:05)
[2022-06-16 20:16] LABS: Band Neutrophils Percent 5 % (0-6); Eosinophils Absolute Manual 0.67 K/mm3 (0.02-0.5); Eosinophils Percent Manual 6 % (0-4); Lymphocytes Absolute Manual 1.68 K/mm3 (1.1-4.5); Monocytes Absolute Manual 0.78 K/mm3 (0.1-0.90); Monocytes Percent Manual 7 % (3-9); Neutrophils Absolute Manual 8.06 K/mm3 (1.7-7.2); Neutrophils Percent Manual 67 % (46-73); Nucleated Red Blood Cells 1 %; Total Cells Counted 100
[2022-06-16 20:17] LABS: Anisocytosis 3+ (NORMAL); Hypochromasia 1+ (NORMAL); Platelet Estimate Adequate (Adequate); Schistocytes None Seen (NORMAL)
[2022-06-16] MEDS: IPRATROPIUM BR 0.02% INH SOLN 0.5 MG/2.5 ML VIAL INHALATION (20:38)
[2022-06-16 21:17] LABS: NT Pro B Type Natriuretic Pept 3140 pg/mL (19.9-100)
[2022-06-16] MEDS: ENOXAPARIN 60 MG/0.6 ML SYRINGE SUB-Q (23:06)
--- NOTE | 2022-06-16 23:13 | PM.IMHP ---
H&P: HPI History of Present Illness Date/Time: 06/16/22 23:13 Chief Complaint: Generalized weakness and shortness of breath Narrative: Patient is a 72-year-old female with past medical history of COPD on chronic 3 L of oxygen, rheumatoid arthritis on chronic prednisone, hyperlipidemia hypertension diabetes coming in for generalized weakness and coughing for 2 days. Patient says she usually is able to ambulate by herself however since 2 days ago has been feeling very weak and even had an episode of falling at home. She denies hitting any body part says that she was having difficulty getting. She says she has been coughing for the past couple of days with productive sputum. She denies any actual fever, nausea or vomiting. 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 The original plan was to wean her off her prednisone and an order was placed for ultrasound of her legs to rule out a DVT however patient was not able to do this. During her workup in the emergency room patient imaging which shows bibasilar airspace disease compatible with pneumonia. She also had a CT scan of her chest which showed pulmonary embolism of the left upper and lower lobe subsegmental pulmonary arteries small thrombus burden. Patient given oxygen supplementation and started on empiric antibiotics vancomycin, doxycycline and ceftriaxone. She also received Lovenox at a dose of 1 milligram/kilogram Q 12 for her PE. Her lactate was normal. Review of Systems Review of Systems: no fever or weight loss no vision changes, no eye discharge no throat pain, no hoarseness, no lymphadenopathy Positive pleuritic chest pain, no palpitations Positive coughing, no wheezing no abdominal pain, no diarrhea, no nausea, no vomiting no dysuria, no vaginal discharge no leg swelling, no edema no suicidal or homicidal ideation FORMERLY [facility] Past Medical History Medical History Anemia Anemia Anxiety Arthritis Chronic anemia Chronic kidney disease, stage 3 Chronic obstructive pulmonary disease Chronic respiratory failure with hypoxia Chronically on oxygen at 4 - 5 L per nasal cannula. Chronic respiratory failure with hypoxia Closed intertrochanteric fracture of right hip (10/2019) Treated non operatively. Congestive heart failure Diastolic with most recent echocardiogram January 2019 demonstrating paradoxical septal motion consistent with right ventricular volume overload or elevated right ventricular end-diastolic pressure, EF 60-65%, mildly increased left ventricular wall thickness, grade 1 diastolic dysfunction, severely reduced right ventricular systolic function, severely enlarged right ventricular chamber, severely enlarged right atrial chamber, [id number] mitral valve regurgitation, trace tricuspid regurgitation, mild pulmonary hypertension with RVSP of 46 Coronary artery disease May 2017: stent x3 to the mid LAD, mid circumflex, and mid RCA. Deemed not to be an operable candidate due to severity of underlying lung disease. 06/2019: stent to the distal RCA, angioplasty to PDA. 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 Paroxysmal atrial fibrillation Paroxysmal supraventricular tachycardia (02/2018) Status post cardiac ablation per Dr. Alvares. Peripheral arterial disease Extensive calcification of the abdominal aorta, renal arteries, celiac and mesenteric arteries, iliac and femoral arteries on CT taken 12/12/2020. Peripheral neuropathy Positive occult stool blood test Pulmonary nodules Rheumatoid arthritis Subarachnoid hemorrhage (01/17/18)
[2022-06-16] MEDS: PHARMACIST COMMUNICATION ORDER 1 EACH XX (23:49)
[2022-06-17] VITALS (43 sets, daily range): BP systolic 106–166; BP diastolic 62–95; PULSE 104–120; RESP 18–29; TEMP 36.6–37.2; O2SAT 90–100; BMI 24.8
--- NOTE | 2022-06-17 | ECHO_ITS ---
Patient Info Name: Piedad Andrade Age: 72 years : 1950 Gender: Female Ht: 63 in Wt: 136 lbs BSA: 1.67 m2 HR: 100 bpm BP: 145 / 68 mmHg Heart Rhythm: Tachycardia Technical Quality: Fair Exam Date: 06/17/2022 11:22 AM Exam Location: [facility] Pulmonary Exam Room: 232 Patient Status: Inpatient Admit Date: 06/17/2022 Staff Ordering Physician: Lorri Moon MD Flower Buncher Or Picker: Mattie Sandhu RDCS Attending Provider: Lorri Moon MD Referring Physician: Red HUNTER; Exam Type: CA echo doppler color flow Study Info Indications - PULMONARY EMBOLISM RV STRAIN Complete two-dimensional, color flow and Doppler transthoracic echocardiogram is performed. Summary 1. Complete two-dimensional, color flow and Doppler transthoracic echocardiogram is performed. 2. Left ventricular chamber dimension is normal. 3. Left ventricular systolic function is normal, estimated at 60-65%. 4. There is mildly increased left ventricular wall thickness. 5. The left ventricular diastolic function is grade I diastolic dysfunction. 6. Right ventricular chamber dimension is normal. 7. Right ventricular systolic function is normal. 8. The mitral valve has thickened leaflets. 9. The mitral valve annulus is mildly calcified. 10. There is mild mitral valve regurgitation. 11. There is mild tricuspid valve regurgitation. 12. Estimated pulmonary arterial systolic pressure is 48 mmHg. Left Ventricle Left ventricular chamber dimension is normal. Left ventricular systolic function is normal, estimated at 60-65%. There is mildly increased left ventricular wall thickness. The left ventricular diastolic function is grade I diastolic dysfunction. Right Ventricle Right ventricular chamber dimension is normal. Right ventricular systolic function is normal. Left Atria Left atrial chamber dimension is normal. Right Atria Right atrial chamber dimension is normal. Atrial Septum Intact interatrial septum visualized by color flow imaging. Aortic Valve The aortic valve is not well visualized. There is mild aortic valve sclerosis. There is no aortic valve stenosis. There is no aortic valve regurgitation. Pulmonic Valve The pulmonic valve is not well visualized. Mitral Valve The mitral valve has thickened leaflets. There is mild mitral valve regurgitation. The mitral valve annulus is mildly calcified. Tricuspid Valve There is mild tricuspid valve regurgitation. Estimated pulmonary arterial systolic pressure is 48 mmHg. Pericardium/Pleural The pericardium appears epicardial fat pad. There is no pericardial effusion. Inferior Vena Cava Normal inferior vena cava with >50% collapse upon inspiration consistent with normal right atrial pressure, 3 mmHg. Aorta The aortic root size at the sinus of Valsalva is normal. Left Ventricular Outflow Tract Name Value Normal LVOT 2D LVOT Diameter 2.0 cm LVOT Doppler LVOT Peak Gradient 5 mmHg LVOT Mean Gradient 3 mmHg LVOT VTI 20 cm LVOT VTI/AV VTI Ratio
[2022-06-17 05:49] LABS: Estimated CRCL calculation 31 ml/min; Estimated Glomerular Filt Rate 44
[2022-06-17] MEDS: HYDROCORTISONE SODIUM SUCCINATE 100 MG/2 ML VIAL 60 MG IV PUSH ×3 (06:35→21:40)
--- NOTE | 2022-06-17 06:50 | PC.NURSE ---
Pt awoke from sleeping, went to update pt on plan of care. Pt has bilateral wheezes, hospitalist contacted for breathing tx and abg. RT contacted; RT states they will send someone down shortly.
[2022-06-17 07:00] LABS: Glucose Point of Care 125 mg/dl (65-105)
[2022-06-17] MEDS: LEVALBUTEROL NEB 1.25 MG/3 ML 0.63 MG INHALATION ×3 (07:30→19:46)
[2022-06-17 07:32] LABS: Alveolar/Arterial O2 Gradient 178.1 mmHg; Base Excess ABG 2.2 mEq/l (+/-2.0); Fractional Inspired Oxygen 40 %; HCO3 ABG 27.1 mEq/l (22.0-26.0); Oxygen Content ABG 11.5 %vol (16.0-22.0); Oxygen Saturation ABG 89.6 % (95.0-100.0); PCO2 ABG 43.9 mmHg (35.0-45.0); PO2 ABG 56.6 mmHg (80.0-100.0); PO2 FiO2 Ratio Arterial Blood 1.41 %; Total Hemoglobin 9.5 g/dL (12.0-18.0); pH ABG 7.409 (7.350-7.450)
[2022-06-17 07:34] LABS: Device NASAL CANNULA; Oxyhemoglobin 86.1 % THb (90.0-100.0); Site Drawn RIGHT BRACHIAL
--- NOTE | 2022-06-17 08:51 | PC.NURSE ---
This patient, Piedad Andrade, was admitted to IMU Room 232-01. Patient/family oriented to hospital policies and general routines including ID bracelet, bed and alarms, visiting hours, pain management, procedures, bathroom and other care routines, personal items, smoking policy, room service/diet, and visiting hours. Information on how to activate the Rapid Response Team has been discussed. Patient/Family are encouraged to report perceived risks to care and to ask questions if they do not understand what they are told or what they should do.
[2022-06-17] MEDS: DOXYCYCLINE 100 MG/NS 100 ML 100 MG/100 ML BAG IVPB ×2 (09:10→20:33)
[2022-06-17] MEDS: ENOXAPARIN 60 MG/0.6 ML SYRINGE SUB-Q ×2 (09:15→21:40)
[2022-06-17 12:10] LABS: Glucose Point of Care 155 mg/dl (65-105)
[2022-06-17] MEDS: HYDROcodone/acetaminophen (*CRX) 5-325 MG TABLET 1 TAB PO (13:13)
--- NOTE | 2022-06-17 13:44 | PM.IMPN ---
Progress Note: A&P Assessment and Plan (1) Acute on chronic respiratory failure with hypoxemia: Code(s): J96.21 - Acute and chronic respiratory failure with hypoxia Status: Acute Assessment and Plan: Patient with known history of COPD, usually on 3 L oxygen, now with imaging showing right-sided pulmonary embolism as well as by basilar infiltrates. Patient oxygen requirement has increased to 5 L. Continue oxygen support and wean off as tolerated. Patient started on empiric antibiotics as well as anticoagulation with Lovenox. (2) Pulmonary embolism: Code(s): I26.99 - Other pulmonary embolism without acute cor pulmonale Status: Acute Assessment and Plan: Patient CT chest showing pulmonary embolism on the right and lower, supposedly low thrombus burden. Patient started full-dose Lovenox 1 mg per q.12 hours. Monitor for any bleeding. Patient will need to transition oral anticoagulation on discharge. 2D echo ordered to evaluate RV function. Patient blood pressure not low, no indication for acute thrombolysis this point. She used to be on Eliquis but now off she used to be on Eliquis but now she has been off since last admission (3) Pneumonia: Code(s): J18.9 - Pneumonia, unspecified organism Status: Acute Assessment and Plan: Patient with imaging showing bibasilar infiltrates consistent with pneumonia. Patient is at risk due to her rheumatoid arthritis and chronic steroid use. Started on empiric ceftriaxone and vancomycin. We will continue antibiotics and await culture results. Monitor WBC count. (4) Chronic obstructive pulmonary disease: Code(s): J44.9 - Chronic obstructive pulmonary disease, unspecified Status: Acute Assessment and Plan: Patient with history of chronic COPD, 3 L oxygen at home. Now with worsening shortness of breath due to pneumonia as well as pulmonary embolism. Continue increased oxygen support. Wean off as tolerated. Continue Usual nebulizations. (5) CKD (chronic kidney disease): Qualifiers: Chronic kidney disease stage: unspecified stage Qualified Code(s): N18.9 - Chronic kidney disease, unspecified Code(s): N18.9 - Chronic kidney disease, unspecified Status: Chronic Assessment and Plan: Patient with known history of chronic kidney disease stage IIIA. Creatinine appears stable. Adjust medications according to clearance. (6) Rheumatoid arthritis: Code(s): M06.9 - Rheumatoid arthritis, unspecified Status: Acute Assessment and Plan: Patient with known history of rheumatoid arthritis, was on prednisone 5 mg for years. Was just seen by rheumatology clinic a few days ago with plans of weaning her off her prednisone. Plan was to give 5 mg and 2.5 mg on alternating days. Patient however with acute illness now. So started on stress doses of steroids temporarily. Plan Code status: patient desires to be full code current leak, says she wants resuscitation x1 only Prognosis guarded Chronic anemia baseline around 9-10 Type 2 diabetes History of atrial fibrillation on amiodarone and apixaban neck Rheumatoid arthritis was given Enbrel methotrexate leflunomide currently on prednisone Chronic respiratory failure with hypoxia 4-5 L oxygen via nasal cannula at baseline Coronary artery disease status post stents in the past May 2017 x3 to mid LAD mid circumflex and mid RCA, 06/2019 stent to distal RCA angioplasty to PDA Congestive heart failure echocardiogram January 2019 with EF 60-65% grade while diastolic dysfunction [id number] mitral regurgitation mild pulmonary hypertension This history of cardiac ablation in the past in 02/2018 History of subarachnoid hemorrhage after a fall 2017 history of FOBT positive workup for GI bleed has been negative in the past CKD stage 3 baseline creatinine in mid 1s Subjective Date/time seen: 06/17/22 13:44 Interval history: History reviewed. Darnell
[2022-06-17] MEDS: POTASSIUM CHLORIDE 20 MEQ PACKET (FOR LIQUID) PO (15:26)
[2022-06-17] MEDS: ISOSORBIDE MONONITRATE 60 MG TAB.ER.24H PO (15:27)
[2022-06-17] MEDS: BUMETANIDE 1 MG TABLET 2 MG PO (15:27)
[2022-06-17] MEDS: ROFLUMILAST 500 MCG TABLET PO (15:28)
[2022-06-17] MEDS: MAGNESIUM OXIDE 400 MG TABLET PO (15:28)
[2022-06-17] MEDS: ATORVASTATIN 20 MG TABLET PO (15:28)
[2022-06-17] MEDS: AMIODARONE HCL 200 MG TABLET PO (15:29)
[2022-06-17] MEDS: ASPIRIN 81 MG ENTERIC TABLET PO (15:29)
[2022-06-17] MEDS: PANTOPRAZOLE 40 MG TABLET PO ×2 (15:29→20:33)
[2022-06-17] MEDS: SERTRALINE HCL 50 MG TABLET PO (15:30)
[2022-06-17] MEDS: LORATADINE 5 MG TABLET PO (15:30)
[2022-06-17] MEDS: LOSARTAN POTASSIUM 50 MG TABLET PO (15:30)
[2022-06-17 17:07] LABS: Glucose Point of Care 204 mg/dl (65-105)
[2022-06-17] MEDS: SUCRALFATE 1 GM TABLET PO ×2 (18:15→20:33)
[2022-06-17] MEDS: FLUTICASONE/UMECLIDIN/VILANTER 100-62.5-25 MCG ELLIPTA 1 PUFF INHALATION (19:47)
[2022-06-17 20:27] LABS: Glucose Point of Care 145 mg/dl (65-105)
[2022-06-18] VITALS (21 sets, daily range): BP systolic 122–177; BP diastolic 51–94; PULSE 66–123; RESP 12–22; TEMP 36.2–36.8; O2SAT 90–100
[2022-06-18] MEDS: HYDROCORTISONE SODIUM SUCCINATE 100 MG/2 ML VIAL 60 MG IV PUSH (06:01)
[2022-06-18] MEDS: SUCRALFATE 1 GM TABLET PO ×4 (06:01→20:18)
[2022-06-18] MEDS: LEVOTHYROXINE SODIUM 25 MCG TABLET PO (06:01)
[2022-06-18] MEDS: HYDROcodone/acetaminophen (*CRX) 5-325 MG TABLET 1 TAB PO ×2 (06:02→20:27)
[2022-06-18 06:10] LABS: Basophils Percent Auto 0.2 % (0.2-1.2); Eosinophils Percent Auto 0.2 % (0-4.4); Hemoglobin 8.7 g/dL (12.0-15.0); Immature Granulocyte Absolute 0.04 K/mm3 (0.00-0.031); Immature Granulocyte Percent A 0.7 % (0-0.5); Lymphocytes Absolute Auto 0.56 K/mm3 (0.9-3.2); Lymphocytes Percent Auto 9.4 % (18.3-44.2); Mean Corpuscular HGB Conc 28.1 g/dl (32-36); Mean Corpuscular Hemoglobin 24.2 pg (26-34); Mean Corpuscular Volume 86.4 fl (80-100); Mean Platelet Volume 9.8 fl (7.4-10.4); Monocytes Absolute Auto 0.2 K/mm3 (0.1-0.6); Monocytes Percent Auto 2.9 % (2.6-8.5); Neutrophils Absolute Auto 5.2 K/mm3 (1.3-6.7); Neutrophils Percent Auto 86.6 % (45.5-73.1); Platelet Count Result 183 k/mm3 (150-375); Red Blood Count 3.59 M/mm3 (4.2-5.4); Red Cell Distribution Width 20.5 % (11.5-14.5)
[2022-06-18 06:19] LABS: Alanine Aminotransferase 19 U/L (6-35); Albumin Level 2.9 g/dL (3.5-5.1); Alkaline Phosphatase 132 U/L (38-126); Anion Gap 6 mmol/L (8-16); Aspartate Amino Transferase 22 U/L (14-36); Bilirubin,Total 0.5 mg/dL (0.2-1.3); Blood Urea Nitrogen 25 mg/dL (7-17); Calcium 7.8 mg/dL (8.4-10.2); Carbon Dioxide 29 mmol/L (22-30); Chloride 101 mmol/L (98-107); Estimated CRCL calculation 31 ml/min; Estimated Glomerular Filt Rate 44; Glucose 138 mg/dL (65-110); Potassium 4.2 mmol/L (3.4-5.0); Sodium 136 mmol/L (137-145)
[2022-06-18] MEDS: LORATADINE 5 MG TABLET PO (08:21)
[2022-06-18] MEDS: ATORVASTATIN 20 MG TABLET PO (08:21)
[2022-06-18] MEDS: ISOSORBIDE MONONITRATE 60 MG TAB.ER.24H PO (08:21)
[2022-06-18] MEDS: BUMETANIDE 1 MG TABLET 2 MG PO (08:21)
[2022-06-18] MEDS: MAGNESIUM OXIDE 400 MG TABLET PO (08:21)
[2022-06-18] MEDS: ASPIRIN 81 MG ENTERIC TABLET PO (08:22)
[2022-06-18] MEDS: LOSARTAN POTASSIUM 50 MG TABLET PO (08:22)
[2022-06-18] MEDS: POTASSIUM CHLORIDE 20 MEQ PACKET (FOR LIQUID) PO (08:22)
[2022-06-18] MEDS: AMIODARONE HCL 200 MG TABLET PO (08:22)
[2022-06-18] MEDS: ROFLUMILAST 500 MCG TABLET PO (08:22)
[2022-06-18] MEDS: SERTRALINE HCL 50 MG TABLET PO (08:22)
[2022-06-18 08:26] LABS: Glucose Point of Care 195 mg/dl (65-105)
[2022-06-18] MEDS: PANTOPRAZOLE 40 MG TABLET PO ×2 (08:26→20:18)
[2022-06-18 09:15] LABS: Anisocytosis 2+ (NORMAL); Platelet Estimate Adequate (Adequate); Schistocytes None Seen (NORMAL)
[2022-06-18] MEDS: FLUTICASONE/UMECLIDIN/VILANTER 100-62.5-25 MCG ELLIPTA 1 PUFF INHALATION (09:38)
[2022-06-18] MEDS: LEVALBUTEROL NEB 1.25 MG/3 ML 0.63 MG INHALATION ×3 (09:38→21:01)
[2022-06-18] MEDS: ENOXAPARIN 60 MG/0.6 ML SYRINGE SUB-Q (10:14)
[2022-06-18] MEDS: DOXYCYCLINE 100 MG/NS 100 ML 100 MG/100 ML BAG IVPB ×2 (10:14→20:29)
[2022-06-18 12:11] LABS: Glucose Point of Care 170 mg/dl (65-105)
--- NOTE | 2022-06-18 13:56 | PM.IMPN ---
Progress Note: A&P Assessment and Plan (1) Acute on chronic respiratory failure with hypoxemia: Code(s): J96.21 - Acute and chronic respiratory failure with hypoxia Status: Acute Assessment and Plan: Patient with known history of COPD, usually on 3 L oxygen, now with imaging showing right-sided pulmonary embolism as well as by basilar infiltrates. Patient oxygen requirement has increased to 5 L but now has lowered down to 3 L which is her baseline oxygen need. Continue oxygen support and wean off as tolerated. Patient started on empiric antibiotics as well as anticoagulation with Lovenox. (2) Pulmonary embolism: Code(s): I26.99 - Other pulmonary embolism without acute cor pulmonale Status: Acute Assessment and Plan: Patient CT chest showing pulmonary embolism on the right and lower, supposedly low thrombus burden. Patient started full-dose Lovenox 1 mg per q.12 hours. Monitor for any bleeding. Patient will need to transition oral anticoagulation on discharge. 2D echo ordered to evaluate RV function. Patient blood pressure not low, no indication for acute thrombolysis this point. She used to be on Eliquis but now off she used to be on Eliquis but now she has been off since last admission Venous duplex came back negative for DVT (3) Pneumonia: Code(s): J18.9 - Pneumonia, unspecified organism Status: Acute Assessment and Plan: Patient with imaging showing bibasilar infiltrates consistent with pneumonia. Patient is at risk due to her rheumatoid arthritis and chronic steroid use. Started on empiric ceftriaxone and vancomycin. We will continue antibiotics and await culture results. Monitor WBC count. (4) Chronic obstructive pulmonary disease: Code(s): J44.9 - Chronic obstructive pulmonary disease, unspecified Status: Acute Assessment and Plan: Patient with history of chronic COPD, 3 L oxygen at home. Now with worsening shortness of breath due to pneumonia as well as pulmonary embolism. Continue increased oxygen support. Wean off as tolerated. Continue Usual nebulizations. (5) CKD (chronic kidney disease): Qualifiers: Chronic kidney disease stage: unspecified stage Qualified Code(s): N18.9 - Chronic kidney disease, unspecified Code(s): N18.9 - Chronic kidney disease, unspecified Status: Chronic Assessment and Plan: Patient with known history of chronic kidney disease stage IIIA. Creatinine appears stable. Adjust medications according to clearance. (6) Rheumatoid arthritis: Code(s): M06.9 - Rheumatoid arthritis, unspecified Status: Acute Assessment and Plan: Patient with known history of rheumatoid arthritis, was on prednisone 5 mg for years. Was just seen by rheumatology clinic a few days ago with plans of weaning her off her prednisone. Plan was to give 5 mg and 2.5 mg on alternating days. Patient however with acute illness now. So started on stress doses of steroids temporarily. Will lower down distress does steroid Plan Code status: patient desires to be full code current leak, says she wants resuscitation x1 only Prognosis guarded Chronic anemia baseline around 9-10 Type 2 diabetes History of atrial fibrillation on amiodarone and apixaban in the past will add metoprolol small dose Rheumatoid arthritis was given Enbrel methotrexate leflunomide currently on prednisone Chronic respiratory failure with hypoxia 4-5 L oxygen via nasal cannula at baseline Coronary artery disease status post stents in the past May 2017 x3 to mid LAD mid circumflex and mid RCA, 06/2019 stent to distal RCA angioplasty to PDA Congestive heart failure echocardiogram January 2019 with EF 60-65% grade while diastolic dysfunction [id number] mitral regurgitation mild pulmonary hypertension This history of cardiac ablation in the past in 02/2018 History of subarachnoid hemorrhage after a fall 2017 history of FOBT positive workup
[2022-06-18 16:16] LABS: Glucose Point of Care 198 mg/dl (65-105)
[2022-06-18 20:16] LABS: Glucose Point of Care 160 mg/dl (65-105)
[2022-06-18] MEDS: METOPROLOL TARTRATE 12.5 MG TABLET PO (20:16)
[2022-06-18] MEDS: guaiFENesin 12 HR 600 MG TABCR PO (20:16)
[2022-06-18] MEDS: APIXABAN 5 MG TABLET 10 MG PO (20:16)
[2022-06-19] VITALS (21 sets, daily range): BP systolic 133–152; BP diastolic 53–77; PULSE 71–107; RESP 16–20; TEMP 36.3–36.9; O2SAT 90–98
[2022-06-19] MEDS: ACETAMINOPHEN 325 MG TABLET PO (00:34)
[2022-06-19] MEDS: LEVALBUTEROL NEB 1.25 MG/3 ML 0.63 MG INHALATION ×4 (02:16→20:20)
[2022-06-19 05:25] LABS: Basophils Percent Auto 0.2 % (0.2-1.2); Eosinophils Absolute Auto 0.3 K/mm3 (0-0.3); Eosinophils Percent Auto 7.2 % (0-4.4); Hematocrit 27.4 % (37.0-47.0); Immature Granulocyte Absolute 0.03 K/mm3 (0.00-0.031); Immature Granulocyte Percent A 0.7 % (0-0.5); Lymphocytes Absolute Auto 1.07 K/mm3 (0.9-3.2); Lymphocytes Percent Auto 23.4 % (18.3-44.2); Mean Corpuscular HGB Conc 29.2 g/dl (32-36); Mean Corpuscular Hemoglobin 23.7 pg (26-34); Mean Corpuscular Volume 81.3 fl (80-100); Mean Platelet Volume 10.1 fl (7.4-10.4); Monocytes Absolute Auto 0.3 K/mm3 (0.1-0.6); Monocytes Percent Auto 6.3 % (2.6-8.5); Neutrophils Absolute Auto 2.8 K/mm3 (1.3-6.7); Neutrophils Percent Auto 62.2 % (45.5-73.1); Platelet Count Result 183 k/mm3 (150-375); Red Blood Count 3.37 M/mm3 (4.2-5.4); Red Cell Distribution Width 20.5 % (11.5-14.5); White Blood Count 4.6 K/mm3 (4.5-10.0)
[2022-06-19 05:40] LABS: Alanine Aminotransferase 14 U/L (6-35); Albumin Level 2.7 g/dL (3.5-5.1); Alkaline Phosphatase 116 U/L (38-126); Anion Gap 2 mmol/L (8-16); Aspartate Amino Transferase 19 U/L (14-36); Bilirubin,Total 0.4 mg/dL (0.2-1.3); Blood Urea Nitrogen 30 mg/dL (7-17); Calcium 7.6 mg/dL (8.4-10.2); Carbon Dioxide 36 mmol/L (22-30); Chloride 101 mmol/L (98-107); Estimated CRCL calculation 24 ml/min; Estimated Glomerular Filt Rate 32; Glucose 134 mg/dL (65-110); Magnesium 1.9 mg/dL (1.6-2.3); Potassium 3.3 mmol/L (3.4-5.0); Sodium 139 mmol/L (137-145)
[2022-06-19 06:04] LABS: Anisocytosis 1+ (NORMAL); Hypochromasia 1+ (NORMAL); Platelet Estimate Adequate (Adequate)
[2022-06-19 06:05] LABS: Schistocytes None Seen (NORMAL)
[2022-06-19] MEDS: LEVOTHYROXINE SODIUM 25 MCG TABLET PO (06:30)
[2022-06-19] MEDS: SUCRALFATE 1 GM TABLET PO ×4 (06:30→20:15)
[2022-06-19 08:38] LABS: Glucose Point of Care 156 mg/dl (65-105)
[2022-06-19] MEDS: APIXABAN 5 MG TABLET 10 MG PO ×2 (08:42→20:16)
[2022-06-19] MEDS: AMIODARONE HCL 200 MG TABLET PO (08:43)
[2022-06-19] MEDS: ASPIRIN 81 MG ENTERIC TABLET PO (08:43)
[2022-06-19] MEDS: ATORVASTATIN 20 MG TABLET PO (08:43)
[2022-06-19] MEDS: guaiFENesin 12 HR 600 MG TABCR PO ×2 (08:44→20:16)
[2022-06-19] MEDS: LORATADINE 5 MG TABLET PO (08:44)
[2022-06-19] MEDS: BUMETANIDE 1 MG TABLET 2 MG PO (08:44)
[2022-06-19] MEDS: MAGNESIUM OXIDE 400 MG TABLET PO (08:45)
[2022-06-19] MEDS: LOSARTAN POTASSIUM 50 MG TABLET PO (08:45)
[2022-06-19] MEDS: PANTOPRAZOLE 40 MG TABLET PO ×2 (08:45→20:14)
[2022-06-19] MEDS: ROFLUMILAST 500 MCG TABLET PO (08:46)
[2022-06-19] MEDS: SERTRALINE HCL 50 MG TABLET PO (08:46)
[2022-06-19] MEDS: METOPROLOL TARTRATE 12.5 MG TABLET PO ×2 (08:46→20:14)
[2022-06-19] MEDS: ISOSORBIDE MONONITRATE 60 MG TAB.ER.24H PO (08:47)
[2022-06-19] MEDS: POTASSIUM CHLORIDE 20 MEQ PACKET (FOR LIQUID) PO ×2 (08:47→10:11)
[2022-06-19] MEDS: HYDROCORTISONE SODIUM SUCCINATE 100 MG/2 ML VIAL 60 MG IV PUSH (08:47)
[2022-06-19] MEDS: FLUTICASONE/UMECLIDIN/VILANTER 100-62.5-25 MCG ELLIPTA 1 PUFF INHALATION (09:11)
[2022-06-19] MEDS: DOXYCYCLINE 100 MG/NS 100 ML 100 MG/100 ML BAG IVPB ×2 (09:43→20:11)
--- NOTE | 2022-06-19 10:34 | PM.IMPN ---
Progress Note: A&P Assessment and Plan (1) Acute on chronic respiratory failure with hypoxemia: Code(s): J96.21 - Acute and chronic respiratory failure with hypoxia Status: Acute Assessment and Plan: Patient with known history of COPD, usually on 3 L oxygen, now with imaging showing right-sided pulmonary embolism as well as by basilar infiltrates. Patient oxygen requirement has increased to 5 L but now has lowered down to 3 L which is her baseline oxygen need. Continue oxygen support and wean off as tolerated. Patient started on empiric antibiotics as well as anticoagulation with Lovenox. Anticoagulation switched to Eliquis that she had previously taken. (2) Pulmonary embolism: Code(s): I26.99 - Other pulmonary embolism without acute cor pulmonale Status: Acute Assessment and Plan: Patient CT chest showing pulmonary embolism on the right and lower, supposedly low thrombus burden. Patient started full-dose Lovenox 1 mg per q.12 hours. Monitor for any bleeding. Patient will need to transition oral anticoagulation on discharge. 2D echo ordered to evaluate RV function. Patient blood pressure not low, no indication for acute thrombolysis this point. She used to be on Eliquis but now off she used to be on Eliquis but now she has been off since last admission Venous duplex came back negative for DVT (3) Pneumonia: Code(s): J18.9 - Pneumonia, unspecified organism Status: Acute Assessment and Plan: Patient with imaging showing bibasilar infiltrates consistent with pneumonia. Patient is at risk due to her rheumatoid arthritis and chronic steroid use. Started on empiric ceftriaxone and vancomycin. We will continue antibiotics and await culture results. Monitor WBC count. MRSA screen negative. Vancomycin will be stopped (4) Chronic obstructive pulmonary disease: Code(s): J44.9 - Chronic obstructive pulmonary disease, unspecified Status: Acute Assessment and Plan: Patient with history of chronic COPD, 3 L oxygen at home. Now with worsening shortness of breath due to pneumonia as well as pulmonary embolism. Continue increased oxygen support. Wean off as tolerated. Continue Usual nebulizations. Will change steroids to q.8 hours Check chest x-ray (5) CKD (chronic kidney disease): Qualifiers: Chronic kidney disease stage: unspecified stage Qualified Code(s): N18.9 - Chronic kidney disease, unspecified Code(s): N18.9 - Chronic kidney disease, unspecified Status: Chronic Assessment and Plan: Patient with known history of chronic kidney disease stage IIIA. Creatinine appears stable. Adjust medications according to clearance. Mild worsening renal function 06/19. Bumex and recheck and monitor a.m. Replace potassium with 20 times (6) Rheumatoid arthritis: Code(s): M06.9 - Rheumatoid arthritis, unspecified Status: Acute Assessment and Plan: Patient with known history of rheumatoid arthritis, was on prednisone 5 mg for years. Was just seen by rheumatology clinic a few days ago with plans of weaning her off her prednisone. Plan was to give 5 mg and 2.5 mg on alternating days. Patient however with acute illness now. So started on stress doses of steroids temporarily. Lower distress does hydrocortisone resume back home doses Plan Code status: patient desires to be full code current leak, says she wants resuscitation x1 only Prognosis guarded Chronic anemia baseline around 9-10 Type 2 diabetes History of atrial fibrillation on amiodarone and apixaban in the past will add metoprolol small dose Rheumatoid arthritis was given Enbrel methotrexate leflunomide currently on prednisone Chronic respiratory failure with hypoxia 4-5 L oxygen via nasal cannula at baseline Coronary artery disease status post stents in the past May 2017 x3 to mid LAD mid circumflex and mid RCA, 06/2019 stent to distal RCA angioplasty to PDA Congestive hear
--- NOTE | 2022-06-19 10:57 | PCPTNOTE ---
Attempted PT evaluation, PT refused due to not feeling well. Will follow.
--- NOTE | 2022-06-19 11:48 | PCOTNOTE ---
Attempted OT evaluation, PT refused due to not feeling well. Will follow.
[2022-06-19 12:08] LABS: Glucose Point of Care 127 mg/dl (65-105)
[2022-06-19] MEDS: HYDROCORTISONE SODIUM SUCCINATE 100 MG/2 ML VIAL 20 MG IV PUSH ×2 (16:11→21:58)
[2022-06-19 17:06] LABS: Glucose Point of Care 183 mg/dl (65-105)
--- NOTE | 2022-06-19 18:23 | PC.NURSE ---
This patient, Piedad Andrade, was transferred to [facility] on 06/19/22 at 1815. Personal belongings sent with patient. Report given to Ananya MATTSON. Appropriate documentation sent with patient.
--- NOTE | 2022-06-19 18:26 | PC.NURSE ---
This patient, Piedad Andrade, was received from IMU on 06/19/22 at 1826. Patient/family oriented to unit policies and routines
[2022-06-19 19:20] LABS: Glucose Point of Care 169 mg/dl (65-105)
[2022-06-19] MEDS: HYDROcodone/acetaminophen (*CRX) 5-325 MG TABLET 1 TAB PO (21:57)
[2022-06-20] VITALS (19 sets, daily range): BP systolic 137–171; BP diastolic 64–79; PULSE 75–95; RESP 17–20; TEMP 36–37.1; O2SAT 93–99
[2022-06-20 05:29] LABS: Hematocrit 24.9 % (37.0-47.0); Hemoglobin 7.4 g/dL (12.0-15.0); Immature Granulocyte Absolute 0.05 K/mm3 (0.00-0.031); Immature Granulocyte Percent A 1.5 % (0-0.5); Lymphocytes Absolute Auto 0.76 K/mm3 (0.9-3.2); Lymphocytes Percent Auto 23.5 % (18.3-44.2); Mean Corpuscular HGB Conc 29.7 g/dl (32-36); Mean Corpuscular Hemoglobin 23.4 pg (26-34); Mean Corpuscular Volume 78.8 fl (80-100); Monocytes Absolute Auto 0.2 K/mm3 (0.1-0.6); Monocytes Percent Auto 6.2 % (2.6-8.5); Neutrophils Absolute Auto 2.2 K/mm3 (1.3-6.7); Neutrophils Percent Auto 68.8 % (45.5-73.1); Platelet Count Result 183 k/mm3 (150-375); Red Blood Count 3.16 M/mm3 (4.2-5.4); Red Cell Distribution Width 20.3 % (11.5-14.5); White Blood Count 3.2 K/mm3 (4.5-10.0)
[2022-06-20 05:54] LABS: Alanine Aminotransferase 15 U/L (6-35); Albumin Level 2.7 g/dL (3.5-5.1); Alkaline Phosphatase 104 U/L (38-126); Anion Gap 2 mmol/L (8-16); Aspartate Amino Transferase 22 U/L (14-36); Bilirubin,Total 0.4 mg/dL (0.2-1.3); Blood Urea Nitrogen 29 mg/dL (7-17); Calcium 7.6 mg/dL (8.4-10.2); Carbon Dioxide 36 mmol/L (22-30); Chloride 101 mmol/L (98-107); Estimated CRCL calculation 27 ml/min; Estimated Glomerular Filt Rate 37; Glucose 137 mg/dL (65-110); Magnesium 1.9 mg/dL (1.6-2.3); Potassium 3.9 mmol/L (3.4-5.0); Sodium 139 mmol/L (137-145)
[2022-06-20 05:58] LABS: Platelet Estimate Adequate (Adequate)
[2022-06-20 05:59] LABS: Anisocytosis 1+ (NORMAL); Microcytosis 2+ (NORMAL); Poikilocytosis 1+ (NORMAL); Schistocytes None Seen (NORMAL)
[2022-06-20 06:00] LABS: Hypochromasia 2+ (NORMAL)
[2022-06-20] MEDS: HYDROCORTISONE SODIUM SUCCINATE 100 MG/2 ML VIAL 20 MG IV PUSH ×3 (06:18→21:46)
[2022-06-20] MEDS: LEVOTHYROXINE SODIUM 25 MCG TABLET PO (06:19)
[2022-06-20] MEDS: SUCRALFATE 1 GM TABLET PO ×3 (06:19→20:26)
[2022-06-20] MEDS: LEVALBUTEROL NEB 1.25 MG/3 ML 0.63 MG INHALATION ×3 (07:05→20:33)
[2022-06-20 08:02] LABS: Glucose Point of Care 134 mg/dl (65-105)
[2022-06-20] MEDS: AMIODARONE HCL 200 MG TABLET PO (08:41)
[2022-06-20] MEDS: ROFLUMILAST 500 MCG TABLET PO (08:42)
[2022-06-20] MEDS: guaiFENesin 12 HR 600 MG TABCR PO ×2 (08:42→20:25)
[2022-06-20] MEDS: PANTOPRAZOLE 40 MG TABLET PO ×2 (08:42→20:25)
[2022-06-20] MEDS: SERTRALINE HCL 50 MG TABLET PO (08:42)
[2022-06-20] MEDS: ISOSORBIDE MONONITRATE 60 MG TAB.ER.24H PO (08:42)
[2022-06-20] MEDS: MAGNESIUM OXIDE 400 MG TABLET PO (08:42)
[2022-06-20] MEDS: ASPIRIN 81 MG ENTERIC TABLET PO (08:42)
[2022-06-20] MEDS: LORATADINE 5 MG TABLET PO (08:42)
[2022-06-20] MEDS: LOSARTAN POTASSIUM 50 MG TABLET PO (08:42)
[2022-06-20] MEDS: METOPROLOL TARTRATE 12.5 MG TABLET PO ×2 (08:42→20:25)
[2022-06-20] MEDS: ATORVASTATIN 20 MG TABLET PO (08:43)
[2022-06-20] MEDS: APIXABAN 5 MG TABLET 10 MG PO ×2 (08:43→20:25)
[2022-06-20] MEDS: POTASSIUM CHLORIDE 20 MEQ PACKET (FOR LIQUID) PO (08:43)
[2022-06-20] MEDS: DOXYCYCLINE 100 MG/NS 100 ML 100 MG/100 ML BAG IVPB ×2 (08:44→20:26)
--- NOTE | 2022-06-20 08:54 | PCPTNOTE ---
Attempted PT evaluation. Pt refused stating she does not need therapy/can walk. Hospitalist contacted and recommend trying again tomorrow. Will Follow.
[2022-06-20 12:00] LABS: Glucose Point of Care 137 mg/dl (65-105)
--- NOTE | 2022-06-20 12:48 | PM.IMPN ---
Progress Note: A&P Assessment and Plan (1) Acute on chronic respiratory failure with hypoxemia: Code(s): J96.21 - Acute and chronic respiratory failure with hypoxia Status: Acute Assessment and Plan: Patient with known history of COPD, usually on 3 L oxygen, now with imaging showing right-sided pulmonary embolism as well as by basilar infiltrates. Patient oxygen requirement has increased to 5 L but now has lowered down to 3 L which is her baseline oxygen need. Continue oxygen support and wean off as tolerated. Patient started on empiric antibiotics as well as anticoagulation with Lovenox. Anticoagulation switched to Eliquis that she had previously taken. Chest x-ray 06/19 with improved opacities Continues on ceftriaxone and doxycycline Vancomycin been stopped MRSA screen negative blood culture negative x2 (2) Pulmonary embolism: Code(s): I26.99 - Other pulmonary embolism without acute cor pulmonale Status: Acute Assessment and Plan: Patient CT chest showing pulmonary embolism on the right and lower, supposedly low thrombus burden. Patient started full-dose Lovenox 1 mg per q.12 hours. Monitor for any bleeding. Patient will need to transition oral anticoagulation on discharge. 2D echo ordered to evaluate RV function. Patient blood pressure not low, no indication for acute thrombolysis this point. She used to be on Eliquis but now off she used to be on Eliquis but now she has been off since last admission Venous duplex came back negative for DVT (3) Pneumonia: Code(s): J18.9 - Pneumonia, unspecified organism Status: Acute Assessment and Plan: Patient with imaging showing bibasilar infiltrates consistent with pneumonia. Patient is at risk due to her rheumatoid arthritis and chronic steroid use. Started on empiric ceftriaxone and vancomycin. We will continue antibiotics and await culture results. Monitor WBC count. MRSA screen negative. Vancomycin will be stopped (4) Chronic obstructive pulmonary disease: Code(s): J44.9 - Chronic obstructive pulmonary disease, unspecified Status: Acute Assessment and Plan: Patient with history of chronic COPD, 3 L oxygen at home. Now with worsening shortness of breath due to pneumonia as well as pulmonary embolism. Continue increased oxygen support. Wean off as tolerated. Continue Usual nebulizations. Steroids to q.8 hours. X-ray chest with improved opacities (5) CKD (chronic kidney disease): Qualifiers: Chronic kidney disease stage: unspecified stage Qualified Code(s): N18.9 - Chronic kidney disease, unspecified Code(s): N18.9 - Chronic kidney disease, unspecified Status: Chronic Assessment and Plan: Patient with known history of chronic kidney disease stage IIIA. Creatinine appears stable. Adjust medications according to clearance. Mild worsening renal function 06/19. Bumex and recheck and monitor a.m. Replace potassium with 20 times (6) Rheumatoid arthritis: Code(s): M06.9 - Rheumatoid arthritis, unspecified Status: Acute Assessment and Plan: Patient with known history of rheumatoid arthritis, was on prednisone 5 mg for years. Was just seen by rheumatology clinic a few days ago with plans of weaning her off her prednisone. Plan was to give 5 mg and 2.5 mg on alternating days. Patient however with acute illness now. So started on stress doses of steroids temporarily. Lower distress does hydrocortisone resume back home doses Plan Code status: patient desires to be full code current leak, says she wants resuscitation x1 only Prognosis guarded Chronic anemia baseline around 9-10 Type 2 diabetes History of atrial fibrillation on amiodarone and apixaban in the past will add metoprolol small dose Rheumatoid arthritis was given Enbrel methotrexate leflunomide currently on prednisone Chronic respiratory failure with hypoxia 4-5 L oxygen via nasal cannula at baseline [place]
[2022-06-20] MEDS: FLUTICASONE/UMECLIDIN/VILANTER 100-62.5-25 MCG ELLIPTA 1 PUFF INHALATION (13:00)
--- NOTE | 2022-06-20 13:00 | PCOTNOTE ---
Patient educated on occupational therapy and refuses evaluation. Patient states not interested in receiving therapy.
[2022-06-20 17:02] LABS: Glucose Point of Care 158 mg/dl (65-105)
[2022-06-20 21:29] LABS: Glucose Point of Care 203 mg/dl (65-105)
[2022-06-20] MEDS: MELATONIN 5 MG TABLET PO (21:45)
[2022-06-20] MEDS: HYDROcodone/acetaminophen (*CRX) 5-325 MG TABLET 1 TAB PO (21:45)
[2022-06-21] VITALS (22 sets, daily range): BP systolic 142–164; BP diastolic 65–72; PULSE 74–96; RESP 16–80; TEMP 36.1–36.9; O2SAT 18–100
[2022-06-21] MEDS: LEVALBUTEROL NEB 1.25 MG/3 ML 0.63 MG INHALATION ×4 (02:48→20:21)
[2022-06-21] MEDS: LEVOTHYROXINE SODIUM 25 MCG TABLET PO (05:28)
[2022-06-21] MEDS: SUCRALFATE 1 GM TABLET PO ×4 (05:28→20:38)
[2022-06-21] MEDS: HYDROCORTISONE SODIUM SUCCINATE 100 MG/2 ML VIAL 20 MG IV PUSH ×2 (05:28→13:04)
[2022-06-21 05:37] LABS: Basophils Percent Auto 0.3 % (0.2-1.2); Eosinophils Percent Auto 1.1 % (0-4.4); Hematocrit 26.8 % (37.0-47.0); Hemoglobin 7.9 g/dL (12.0-15.0); Immature Granulocyte Absolute 0.02 K/mm3 (0.00-0.031); Immature Granulocyte Percent A 0.6 % (0-0.5); Lymphocytes Absolute Auto 1.05 K/mm3 (0.9-3.2); Lymphocytes Percent Auto 28.9 % (18.3-44.2); Mean Corpuscular HGB Conc 29.5 g/dl (32-36); Mean Corpuscular Hemoglobin 23.4 pg (26-34); Mean Corpuscular Volume 79.5 fl (80-100); Mean Platelet Volume 9.2 fl (7.4-10.4); Monocytes Absolute Auto 0.2 K/mm3 (0.1-0.6); Monocytes Percent Auto 6.1 % (2.6-8.5); Neutrophils Absolute Auto 2.3 K/mm3 (1.3-6.7); Platelet Count Result 183 k/mm3 (150-375); Red Blood Count 3.37 M/mm3 (4.2-5.4); Red Cell Distribution Width 20.2 % (11.5-14.5); White Blood Count 3.6 K/mm3 (4.5-10.0)
[2022-06-21 05:51] LABS: Alanine Aminotransferase 16 U/L (6-35); Albumin Level 2.8 g/dL (3.5-5.1); Alkaline Phosphatase 99 U/L (38-126); Anion Gap 1 mmol/L (8-16); Aspartate Amino Transferase 30 U/L (14-36); Bilirubin,Total 0.4 mg/dL (0.2-1.3); Blood Urea Nitrogen 28 mg/dL (7-17); Calcium 7.8 mg/dL (8.4-10.2); Carbon Dioxide 36 mmol/L (22-30); Chloride 103 mmol/L (98-107); Estimated CRCL calculation 29 ml/min; Estimated Glomerular Filt Rate 40; Glucose 155 mg/dL (65-110); Magnesium 1.8 mg/dL (1.6-2.3); Potassium 3.8 mmol/L (3.4-5.0); Sodium 140 mmol/L (137-145)
[2022-06-21 06:37] LABS: Hypochromasia 2+ (NORMAL); Platelet Estimate Adequate (Adequate); Target Cells 1+ (NORMAL)
[2022-06-21 06:38] LABS: Ovalocytes 1+ (NORMAL); Schistocytes Rare (NORMAL)
--- NOTE | 2022-06-21 08:10 | P.CDI_ITS ---
CDI Query Clarified Diagnosis Clarified Diagnosis: Elevated BNP on 06/16/22 lab work. Bumex listed as a home medication. Patient receiving Bumex. Patient presents with shortness of breath and BLE edema. Documented history of CHF. CHF noted on the assessment and plan. Please specify type and acuity of heart failure if known. * Acute * Chronic * Acute on Chronic * Unknown * Systolic * Diastolic * Combined Systolic and Diastolic * Unknown <Neris Mccormick RN - Last Filed: 06/21/22 08:15> Provider Comments Chronic diastolic congestive heart failure <Elias Colón MD - Last Filed: 06/21/22 16:06>
[2022-06-21] MEDS: POTASSIUM CHLORIDE 20 MEQ PACKET (FOR LIQUID) PO (08:41)
[2022-06-21] MEDS: METOPROLOL TARTRATE 12.5 MG TABLET PO ×2 (08:41→20:38)
[2022-06-21] MEDS: ISOSORBIDE MONONITRATE 60 MG TAB.ER.24H PO (08:41)
[2022-06-21] MEDS: LOSARTAN POTASSIUM 50 MG TABLET PO (08:41)
[2022-06-21] MEDS: MAGNESIUM OXIDE 400 MG TABLET PO (08:42)
[2022-06-21] MEDS: SERTRALINE HCL 50 MG TABLET PO (08:42)
[2022-06-21] MEDS: ROFLUMILAST 500 MCG TABLET PO (08:42)
[2022-06-21] MEDS: ATORVASTATIN 20 MG TABLET PO (08:42)
[2022-06-21] MEDS: LORATADINE 5 MG TABLET PO (08:42)
[2022-06-21] MEDS: DOXYCYCLINE 100 MG/NS 100 ML 100 MG/100 ML BAG IVPB ×2 (08:43→20:38)
[2022-06-21] MEDS: ASPIRIN 81 MG ENTERIC TABLET PO (08:43)
[2022-06-21] MEDS: guaiFENesin 12 HR 600 MG TABCR PO ×2 (08:43→20:38)
[2022-06-21] MEDS: APIXABAN 5 MG TABLET 10 MG PO ×2 (08:43→20:38)
[2022-06-21] MEDS: PANTOPRAZOLE 40 MG TABLET PO ×2 (08:43→20:38)
[2022-06-21] MEDS: AMIODARONE HCL 200 MG TABLET PO (08:43)
[2022-06-21 09:01] LABS: Glucose Point of Care 147 mg/dl (65-105)
[2022-06-21] MEDS: FLUTICASONE/UMECLIDIN/VILANTER 100-62.5-25 MCG ELLIPTA 1 PUFF INHALATION (09:48)
[2022-06-21 11:59] LABS: Glucose Point of Care 150 mg/dl (65-105)
[2022-06-21] MEDS: NYSTATIN 100,000 UNITS/ML SUSP 5 ML ORAL.SUSP PO ×2 (15:27→20:38)
--- NOTE | 2022-06-21 16:02 | P.PNIM_ITS ---
Progress Note: A&P Assessment and Plan (1) Acute on chronic respiratory failure with hypoxemia: Code(s): J96.21 - Acute and chronic respiratory failure with hypoxia Status: Acute Assessment and Plan: Patient with known history of COPD, usually on 3 L oxygen, now with imaging showing right-sided pulmonary embolism as well as by basilar infiltrates. Patient oxygen requirement has increased to 5 L but now has lowered down to 3 L which is her baseline oxygen need. Continue oxygen support and wean off as tolerated. Patient started on empiric antibiotics as well as anticoagulation with Lovenox. Anticoagulation switched to Eliquis that she had previously taken. Chest x-ray 06/19 with improved opacities Continues on ceftriaxone and doxycycline Vancomycin been stopped MRSA screen negative blood culture negative x2 (2) Pulmonary embolism: Code(s): I26.99 - Other pulmonary embolism without acute cor pulmonale Status: Acute Assessment and Plan: Patient CT chest showing pulmonary embolism on the right and lower, supposedly low thrombus burden. Patient started full-dose Lovenox 1 mg per q.12 hours. Monitor for any bleeding. Patient will need to transition oral anticoagulation on discharge. 2D echo ordered to evaluate RV function. Patient blood pressure not low, no indication for acute thrombolysis this point. She used to be on Eliquis but now off she used to be on Eliquis but now she has been off since last admission Venous duplex came back negative for DVT (3) Pneumonia: Code(s): J18.9 - Pneumonia, unspecified organism Status: Acute Assessment and Plan: Patient with imaging showing bibasilar infiltrates consistent with pneumonia. Patient is at risk due to her rheumatoid arthritis and chronic steroid use. Started on empiric ceftriaxone and vancomycin. We will continue antibiotics and await culture results. Monitor WBC count. MRSA screen negative. Vancomycin stopped (4) Chronic obstructive pulmonary disease: Code(s): J44.9 - Chronic obstructive pulmonary disease, unspecified Status: Acute Assessment and Plan: Patient with history of chronic COPD, 3 L oxygen at home. Now with worsening shortness of breath due to pneumonia as well as pulmonary embolism. Continue increased oxygen support. Wean off as tolerated. Continue Usual nebulizations. Steroids to q.8 hours. X-ray chest with improved opacities (5) CKD (chronic kidney disease): Qualifiers: Chronic kidney disease stage: unspecified stage Qualified Code(s): N18.9 - Chronic kidney disease, unspecified Code(s): N18.9 - Chronic kidney disease, unspecified Status: Chronic Assessment and Plan: Patient with known history of chronic kidney disease stage IIIA. Creatinine appears stable. Adjust medications according to clearance. Mild worsening renal function 06/19. Bumex and recheck and monitor a.m. Replace potassium with 20 times (6) Rheumatoid arthritis: Code(s): M06.9 - Rheumatoid arthritis, unspecified Status: Acute Assessment and Plan: Patient with known history of rheumatoid arthritis, was on prednisone 5 mg for years. Was just seen by rheumatology clinic a few days ago with plans of weaning her off her prednisone. Plan was to give 5 mg and 2.5 mg on alternating days. Patient however with acute illness now. So started on stress doses of steroids temporarily. Lower distress does hydrocortisone resume back home doses Plan Code status: patient desires to be full code current leak, says she wants resuscitation x1 only Prognosis guarded Chronic anemia baseline around 9-10
[2022-06-21 17:28] LABS: Glucose Point of Care 181 mg/dl (65-105)
[2022-06-21 20:36] LABS: Glucose Point of Care 182 mg/dl (65-105)
[2022-06-21] MEDS: MELATONIN 5 MG TABLET PO (21:45)
[2022-06-21] MEDS: HYDROcodone/acetaminophen (*CRX) 5-325 MG TABLET 1 TAB PO (21:45)
[2022-06-22] VITALS (13 sets, daily range): BP systolic 147–149; BP diastolic 65–69; PULSE 72–91; RESP 14–18; TEMP 36.4–36.9; O2SAT 91–100
[2022-06-22] MEDS: LEVALBUTEROL NEB 1.25 MG/3 ML 0.63 MG INHALATION ×2 (01:54→08:23)
[2022-06-22] MEDS: SUCRALFATE 1 GM TABLET PO ×2 (05:37→11:22)
[2022-06-22] MEDS: LEVOTHYROXINE SODIUM 25 MCG TABLET PO (05:37)
[2022-06-22 05:52] LABS: Basophils Percent Auto 0.2 % (0.2-1.2); Eosinophils Absolute Auto 0.3 K/mm3 (0-0.3); Eosinophils Percent Auto 6.4 % (0-4.4); Hematocrit 26.3 % (37.0-47.0); Hemoglobin 7.6 g/dL (12.0-15.0); Immature Granulocyte Absolute 0.03 K/mm3 (0.00-0.031); Immature Granulocyte Percent A 0.7 % (0-0.5); Lymphocytes Absolute Auto 1.39 K/mm3 (0.9-3.2); Lymphocytes Percent Auto 30.5 % (18.3-44.2); Mean Corpuscular HGB Conc 28.9 g/dl (32-36); Mean Corpuscular Hemoglobin 23.9 pg (26-34); Mean Corpuscular Volume 82.7 fl (80-100); Mean Platelet Volume 9.9 fl (7.4-10.4); Monocytes Absolute Auto 0.3 K/mm3 (0.1-0.6); Monocytes Percent Auto 5.7 % (2.6-8.5); Neutrophils Absolute Auto 2.6 K/mm3 (1.3-6.7); Neutrophils Percent Auto 56.5 % (45.5-73.1); Platelet Count Result 202 k/mm3 (150-375); Red Blood Count 3.18 M/mm3 (4.2-5.4); Red Cell Distribution Width 20.5 % (11.5-14.5); White Blood Count 4.6 K/mm3 (4.5-10.0)
[2022-06-22 06:06] LABS: Alanine Aminotransferase 17 U/L (6-35); Albumin Level 2.6 g/dL (3.5-5.1); Alkaline Phosphatase 98 U/L (38-126); Anion Gap 1 mmol/L (8-16); Aspartate Amino Transferase 19 U/L (14-36); Bilirubin,Total 0.4 mg/dL (0.2-1.3); Blood Urea Nitrogen 26 mg/dL (7-17); Calcium 7.8 mg/dL (8.4-10.2); Carbon Dioxide 32 mmol/L (22-30); Chloride 106 mmol/L (98-107); Estimated CRCL calculation 34 ml/min; Estimated Glomerular Filt Rate 49; Glucose 115 mg/dL (65-110); Potassium 3.7 mmol/L (3.4-5.0); Sodium 139 mmol/L (137-145)
[2022-06-22 06:20] LABS: Anisocytosis 2+ (NORMAL); Hypochromasia 2+ (NORMAL); Platelet Estimate Adequate (Adequate); Schistocytes None Seen (NORMAL)
[2022-06-22] MEDS: NYSTATIN 100,000 UNITS/ML SUSP 5 ML ORAL.SUSP PO ×2 (08:10→12:37)
[2022-06-22] MEDS: predniSONE 10 MG TABLET PO (08:11)
[2022-06-22] MEDS: LORATADINE 5 MG TABLET PO (08:11)
[2022-06-22] MEDS: POTASSIUM CHLORIDE 20 MEQ PACKET (FOR LIQUID) PO (08:11)
[2022-06-22] MEDS: MAGNESIUM OXIDE 400 MG TABLET PO (08:12)
[2022-06-22] MEDS: METOPROLOL TARTRATE 12.5 MG TABLET PO (08:12)
[2022-06-22] MEDS: ISOSORBIDE MONONITRATE 60 MG TAB.ER.24H PO (08:12)
[2022-06-22] MEDS: ROFLUMILAST 500 MCG TABLET PO (08:12)
[2022-06-22] MEDS: LOSARTAN POTASSIUM 50 MG TABLET PO (08:12)
[2022-06-22] MEDS: guaiFENesin 12 HR 600 MG TABCR PO (08:12)
[2022-06-22] MEDS: PANTOPRAZOLE 40 MG TABLET PO (08:12)
[2022-06-22] MEDS: SERTRALINE HCL 50 MG TABLET PO (08:12)
[2022-06-22] MEDS: APIXABAN 5 MG TABLET 10 MG PO (08:13)
[2022-06-22] MEDS: ATORVASTATIN 20 MG TABLET PO (08:13)
[2022-06-22] MEDS: DOXYCYCLINE 100 MG/NS 100 ML 100 MG/100 ML BAG IVPB (08:15)
[2022-06-22] MEDS: FLUTICASONE/UMECLIDIN/VILANTER 100-62.5-25 MCG ELLIPTA 1 PUFF INHALATION (08:23)
[2022-06-22] MEDS: ASPIRIN 81 MG ENTERIC TABLET PO (08:32)
[2022-06-22] MEDS: AMIODARONE HCL 200 MG TABLET PO (08:32)
[2022-06-22 08:42] LABS: Glucose Point of Care 109 mg/dl (65-105)
[2022-06-22 12:14] LABS: Glucose Point of Care 144 mg/dl (65-105)
--- NOTE | 2022-06-22 12:57 | PM.DS ---
DS: Admitting Diagnosis Discharge Date 06/22/2022 Admitting Diagnosis shortness of breath DS: Discharge Diagnosis Discharge Diagnosis (1) Acute on chronic respiratory failure with hypoxemia: Code(s): J96.21 - Acute and chronic respiratory failure with hypoxia Status: Acute (2) Pulmonary embolism: Code(s): I26.99 - Other pulmonary embolism without acute cor pulmonale Status: Acute (3) Pneumonia: Code(s): J18.9 - Pneumonia, unspecified organism Status: Acute (4) Chronic obstructive pulmonary disease: Code(s): J44.9 - Chronic obstructive pulmonary disease, unspecified Status: Acute (5) CKD (chronic kidney disease): Qualifiers: Chronic kidney disease stage: unspecified stage Qualified Code(s): N18.9 - Chronic kidney disease, unspecified Code(s): N18.9 - Chronic kidney disease, unspecified Status: Chronic (6) Rheumatoid arthritis: Code(s): M06.9 - Rheumatoid arthritis, unspecified Status: Acute DS: Summary Hospital Course Hospital Course: # Acute on chronic respiratory failure with hypoxemia: Patient with known history of COPD, usually on 3 L oxygen, now with imaging showing right-sided pulmonary embolism as well as by basilar infiltrates.? Patient oxygen requirement has increased to 5 L but now has lowered down to 3 L which is her baseline oxygen need.? Continue oxygen support and wean off as tolerated.? Patient started on empiric antibiotics as well as anticoagulation with Lovenox.? Anticoagulation switched to Eliquis that she had previously taken. Chest x-ray 06/19 with improved opacities Continues on ceftriaxone and doxycycline will switch to Omnicef at discharge Vancomycin been stopped MRSA screen negative blood culture negative x2 # acute Pulmonary embolism: Patient CT chest showing pulmonary embolism on the right and lower, supposedly low thrombus burden.? Patient started full-dose Lovenox 1? mg per q.12 hours.? Monitor for any bleeding.? Patient will need to transition oral anticoagulation on discharge. 2D echo ordered to evaluate RV function. Patient blood pressure not low, no indication for acute thrombolysis this point. She used to be on Eliquis but now off she used to be on Eliquis but now she has been off since last admission Venous duplex came back negative for DVT # basilar pneumonia: Patient with imaging showing bibasilar infiltrates consistent with pneumonia.? Patient is at risk due to her rheumatoid arthritis and chronic steroid use.? Started on empiric ceftriaxone and vancomycin.? We will continue antibiotics and await culture results.? Monitor WBC count. MRSA screen negative.? Vancomycin stopped Switched to Omnicef at discharge for continued treatment for pneumonia # COPD: With acute exacerbation treated with steroid IV switched to prednisone. She is on home prednisone for her underlying rheumatoid arthritis back to her home doses at discharge. Patient with history of chronic COPD, 3 L oxygen at home.? Now with worsening shortness of breath due to pneumonia as well as pulmonary embolism.? Continue increased oxygen support.? Wean off as tolerated.? Continue Usual nebulizations. Steroids to q.8 hours. X-ray chest with improved opacities # CKD (chronic kidney disease): Patient with known history of chronic kidney disease stage IIIA.? Creatinine appears stable.? Adjust medications according to clearance. Mild worsening renal function 06/19. held? Bumex and recheck and in remain stable # Rheumatoid arthritis: Patient with known history of rheumatoid arthritis, was on prednisone 5 mg for years.? Was just seen by rheumatology clinic a few days ago with plans of weaning her off her prednisone.? Plan was to give 5 mg and 2.5 mg on alternating days.? Patient however with acute illness now.? So started on stress doses of steroids temporarily.? Lower distress does hydrocortisone resume back home doses #Code status:? patient desires to be ful
== END 2022-06-22 13:55 | disposition home or self-care (01) | DRG 175 ==
LOC: ANHED 22:32 → ANHIMU 06-17 05:08 → ANH2MED 06-19 18:10
PROVIDERS: Admitting Provider Internal Medicine; Emergency Provider Physician Assistant; PCP Family Medicine Sports Medicine; Visit Provider Internal Medicine
DX: I26.99 Other pulmonary embolism without acute cor pulmonale (principal); J18.9 Pneumonia, unspecified organism; J96.21 Acute and chronic respiratory failure with hypoxia; J44.0 Chronic obstructive pulmonary disease with (acute) lower respiratory infection; J44.1 Chronic obstructive pulmonary disease with (acute) exacerbation; I13.0 Hypertensive heart and chronic kidney disease with heart failure and stage 1 through stage 4 chronic kidney disease, or unspecified chronic kidney disease; I50.32 Chronic diastolic (congestive) heart failure; M06.9 Rheumatoid arthritis, unspecified; Z99.81 Dependence on supplemental oxygen; D63.1 Anemia in chronic kidney disease; E11.22 Type 2 diabetes mellitus with diabetic chronic kidney disease; I25.10 Atherosclerotic heart disease of native coronary artery without angina pectoris; I27.20 Pulmonary hypertension, unspecified; G47.33 Obstructive sleep apnea (adult) (pediatric); F32.A Depression, unspecified; N18.31 Chronic kidney disease, stage 3a; Z20.822 Contact with and (suspected) exposure to COVID-19; Z87.891 Personal history of nicotine dependence; Z95.5 Presence of coronary angioplasty implant and graft; Z79.52 Long term (current) use of systemic steroids; Z79.890 Hormone replacement therapy; Z79.899 Other long term (current) drug therapy; Z88.5 Allergy status to narcotic agent
CPT/HCPCS: 36415; 36600; 71045; 71275; 80053; 82565; 82805; 82948; 83605; 83735; 83880; 84484; 85025; 85610; 85730; 87040; 87070; 87081; 87205; 87636; 93005; 93306; 93970; 94640; 96365; 96366; 96367; 96368; 97161; 97165; 99285; A9270; G0378; J0696; J1650; J1720; J3370; J3475; J7030; J7512; Q9967

== ENCOUNTER 2022-09-16 20:47 | Observation (INO) | payer MEDICARE, SELFPAY ==
[2022-09-16] VITALS (34 sets, daily range): BP systolic 120–156; BP diastolic 47–106; PULSE 102–213; RESP 12–27; TEMP 36.8; O2SAT 81–100
--- NOTE | ~2022-09-16 | XR_ITS ---
EXAMINATION: XR chest 1V portable Exam Date/Time: 09/16/2022 21:00 CDT HISTORY: chest pain, palpitations, dyspnea Comparison: 06/22/2022. RESULT: Lines, tubes, and devices: None. Lungs and pleura: Emphysematous and senescent change. Diffuse reticular opacities. No focal consolid ation. Cardiomediastinal silhouette: Stable. Other: No acute osseous or upper abdominal finding. IMPRESSION: Interstitial edema. Severe emphysematous change. Reviewed, dictated and finalized at location K.
[2022-09-16] MEDS: dilTIAZem HCl INJ 25 MG/5 ML VIAL (20:55)
--- NOTE | 2022-09-16 21:00 | ECG_ITS ---
Measurements Intervals Center Rate: 176 P: SD: 0 QRS: -49 QRSD: 101 T: 96 QT: 246 QTc: 422 Interpretive Statements ATRIAL FIBRILLATION WITH RAPID VENTRICULAR RESPONSE LEFT AXIS DEVIATION CANNOT RULE OUT SEPTAL INFARCT, AGE INDETERMINATE CONSIDER INFERIOR INFARCT, AGE INDETERMINATE ST-T WAVE ABNORMALITY IN LAT/HIGH LAT LEADS- CONSIDER ISCHEMIA ABNORMAL ECG COMPARED TO ECG 06/16/2022 17:27:36 ATRIAL FIBRILLATION NOW PRESENT MYOCARDIAL INFARCT FINDING NOW PRESENT ST-T WAVE ABNORMALITY NOW PRESENT Electronically Signed On 09-16-2022 21:10:13 CDT by Joshua Bennett D.O.
[2022-09-16] MEDS: dilTIAZem 100 MG/100 ML 100 MG/100 ML BAG IV CONT (21:05)
[2022-09-16 21:16] LABS: Basophils Percent Auto 0.5 % (0.2-1.2); Eosinophils Absolute Auto 1.3 K/mm3 (0-0.3); Hematocrit 30.4 % (37.0-47.0); Hemoglobin 8.9 g/dL (12.0-15.0); Immature Granulocyte Absolute 0.03 K/mm3 (0.00-0.031); Immature Granulocyte Percent A 0.5 % (0-0.5); Lymphocytes Absolute Auto 1.35 K/mm3 (0.9-3.2); Lymphocytes Percent Auto 21.1 % (18.3-44.2); Mean Corpuscular HGB Conc 29.3 g/dl (32-36); Mean Corpuscular Hemoglobin 23.9 pg (26-34); Mean Corpuscular Volume 81.5 fl (80-100); Mean Platelet Volume 11.1 fl (7.4-10.4); Monocytes Absolute Auto 0.4 K/mm3 (0.1-0.6); Monocytes Percent Auto 6.7 % (2.6-8.5); Neutrophils Absolute Auto 3.3 K/mm3 (1.3-6.7); Neutrophils Percent Auto 51.2 % (45.5-73.1); Platelet Count Result 260 k/mm3 (150-375); Red Blood Count 3.73 M/mm3 (4.2-5.4); Red Cell Distribution Width 16.2 % (11.5-14.5); White Blood Count 6.4 K/mm3 (4.5-10.0)
[2022-09-16] MEDS: ASPIRIN 81 MG CHEWABLE TABLET 324 MG PO (21:21)
[2022-09-16 21:27] LABS: INR 1.1; Prothrombin Time 15.1 Seconds (11.1-14.7)
[2022-09-16 21:28] LABS: Partial Thromboplastin Time 38.9 SECONDS (22.3-36.8)
[2022-09-16 21:33] LABS: Alanine Aminotransferase 10 U/L (6-35); Albumin Level 3.4 g/dL (3.5-5.1); Alkaline Phosphatase 91 U/L (38-126); Anion Gap 9 mmol/L (8-16); Aspartate Amino Transferase 24 U/L (14-36); Bilirubin,Total 0.8 mg/dL (0.2-1.3); Blood Urea Nitrogen 20 mg/dL (7-17); Calcium 7.5 mg/dL (8.4-10.2); Carbon Dioxide 31 mmol/L (22-30); Chloride 100 mmol/L (98-107); Estimated CRCL calculation 36 ml/min; Estimated Glomerular Filt Rate 55; Glucose 108 mg/dL (65-110); Potassium 3.5 mmol/L (3.4-5.0); Sodium 140 mmol/L (137-145)
[2022-09-16] MEDS: AMIODARONE 150 MG/D5W 100 ML 150 MG/100 ML BAG 600 MG IV CONT (21:34)
[2022-09-16 21:35] LABS: Hypochromasia 1+ (NORMAL); Ovalocytes 1+ (NORMAL); Platelet Estimate Adequate (Adequate); Schistocytes None Seen (NORMAL)
[2022-09-16 21:41] LABS: NT Pro B Type Natriuretic Pept 5460 pg/mL (19.9-100); Troponin I 0.018 ng/mL (0.000-0.034)
[2022-09-16] MEDS: AMIODARONE 360 MG/D5W 200 ML 360 MG/200 ML BAG 33.33 MG IV CONT (21:48)
--- NOTE | 2022-09-16 22:14 | ED.GENADULT ---
HPI - General Adult General Chief complaint: Chest Pain Stated complaint: CP, SOB, A-FIB W/ RVR Time Seen by Provider: 09/16/22 20:55 History of Present Illness HPI narrative: Patient is a 70-year-old female who presents the emergency department with chief complaint of chest discomfort and palpitations. Patient reports she has history of atrial fibrillation and reports that she had an ablation before in the past. Patient reports that today she started having as though her heart was beating fast and noticed that she had tightness and heaviness in her chest. Patient was found to have a heart rate in the 150s to 200s with an irregular rhythm. Related Data Home Medications Medication Instructions Recorded Confirmed aspirin 81 mg tablet 81 mg PO DAILY 07/12/20 07/23/22 albuterol sulfate 90 mcg/actuation 2 puff inhalation Q6H PRN 01/06/21 07/23/22 aerosol inhaler (Ventolin HFA) Shortness Of Breath atorvastatin 20 mg tablet 20 mg PO DAILY 01/06/21 07/23/22 losartan 50 mg tablet 50 mg PO DAILY 01/06/21 07/23/22 metformin 500 mg tablet 500 mg PO BID 01/06/21 07/23/22 nitroglycerin 0.4 mg sublingual 0.4 mg sublingual Q5M PRN Chest 09/17/21 07/23/22 tablet Pain acetaminophen 325 mg tablet 325 mg PO Q6H PRN Pain 09/18/21 07/23/22 fluticasone fur. 100 mcg-umeclid 1 inh inhalation DAILY 09/18/21 07/23/22 62.5 mcg-vilant 25 mcg inhalat.powder (Trelegy Ellipta) hydrocodone 5 mg-acetaminophen 325 1 tablet PO Q6-8H PRN Pain 09/18/21 07/23/22 mg tablet bumetanide 1 mg tablet 2 mg PO DAILY 05/28/22 07/23/22 isosorbide mononitrate 60 mg 60 mg PO DAILY 05/28/22 07/23/22 tablet,extended release 24 hr ondansetron 4 mg disintegrating 4 mg PO Q6H PRN Nausea 05/28/22 07/23/22 tablet potassium chloride 20 mEq oral 20 meq PO DAILY 05/28/22 07/23/22 packet (Klor-Con) sertraline 100 mg tablet 50 mg PO DAILY 05/28/22 07/23/22 amiodarone 200 mg tablet 200 mg PO DAILY 06/17/22 07/23/22 cetirizine 5 mg tablet 5 mg PO DAILY 06/17/22 07/23/22 levothyroxine 25 mcg tablet 25 mcg PO DAILY 06/17/22 07/23/22 magnesium 200 mg tablet 400 mg PO DAILY 06/17/22 07/23/22 sucralfate 1 gram tablet 1 g PO ACHS 06/17/22 07/23/22 Allergies Allergy/AdvReac Type Severity Reaction Status Date / Time morphine Allergy Intermediate Itching Verified 07/23/22 10:48 pregabalin Allergy Intermediate Itching Verified 07/23/22 10:48 Review of Systems Review of Systems: A 10 system review of systems was completed on the patient and is negative except for what is stated in the HPI. Nursing and ancillary documentation was reviewed. [facility] Past Medical History Medical History Anemia Anemia Anxiety Arthritis Chronic anemia Chronic kidney disease, stage 3 Chronic obstructive pulmonary disease Chronic respiratory failure with hypoxia Chronically on oxygen at 4 - 5 L per nasal cannula. Chronic respiratory failure with hypoxia Closed intertrochanteric fracture of right hip (10/2019) Treated non operatively. Congestive heart failure Diastolic with most recent echocardiogram January 2019 demonstrating paradoxical septal motion consistent with right ventricular volume overload or elevated right ventricular end-diastolic pressure, EF 60-65%, mildly increased left ventricular wall thickness, grade 1 diastolic dysfunction, severely reduced right ventricular systolic function, severely enlarged right ventricular chamber, severely enlarged right atrial chamber, [id number] mitral valve regurgitation, trace tricuspid regurgitation, mild pulmonary hypertension with RVSP of 46 Coronary artery disease May 2017: stent x3 to the mid LAD, mid circumflex, and mid RCA. Deemed not to be an operable candidate due to severity of underlying lung disease. 06/2019: stent to the distal RCA, angioplasty to PDA. Depression Esophageal ring Gastroesophageal reflux disease Generalized osteoarthritis of multiple sites GERD (g
--- NOTE | 2022-09-16 22:49 | PC.NURSE ---
EDP made aware of pts increased HR. Per EDP Benmeyer, restart diltiazem IVPB at 5mg/hr.
[2022-09-16] MEDS: ENOXAPARIN 60 MG/0.6 ML SYRINGE SUB-Q (23:33)
[2022-09-17] VITALS (21 sets, daily range): BP systolic 143–182; BP diastolic 66–97; PULSE 77–150; RESP 18–20; TEMP 35.8–36.7; O2SAT 93–100; BMI 24.2
--- NOTE | 2022-09-17 00:18 | ADMGEN ---
This patient, Piedad Andrade, was admitted to IMU Room 211-01 at 0005. Patient/family oriented to hospital policies and general routines including ID bracelet, bed and alarms, visiting hours, pain management, procedures, bathroom and other care routines, personal items, smoking policy, room service/diet, and visiting hours. Information on how to activate the Rapid Response Team has been discussed. Patient/Family are encouraged to report perceived risks to care and to ask questions if they do not understand what they are told or what they should do.
--- NOTE | 2022-09-17 01:06 | PM.IMHP ---
H&P: HPI History of Present Illness Date/Time: 09/17/22 01:06 Chief Complaint: Chest pain and rapid heart rate Narrative: 72-year-old female with a past medical history of paroxysmal AFib RVR, SVT, end-stage COPD type 2 diabetes mellitus and diastolic heart failure who presented to the ER with chest pain and palpitations. The patient reports that she had not been feeling well for 2 days. She had only gotten out of bed to take her medications and then would go straight back to bed. She is having substernal chest pain with sensation of intermittent racing heart. She was having some orthopnea it sounds like some paroxysmal nocturnal dyspnea. She denies any lower extremity swelling. Her heart rate when she arrived to the ER was in the 170s. Patient reports her chest pain resolved after heart rate improved. In the ER she was loaded on amiodarone IV and when her heart rate would still intermittently jump up into the 160s cardiology was consulted and the patient was also started on Cardizem drip. After initiation of Cardizem drip patient's heart rate for the most part was in the low 100s. She has some chronic intermittent nausea that occurs once or twice a week. She denies any hematemesis or coffee-ground emesis. She reports that her weight has been relatively stable. She denies any cough or congestion. She denies any fevers or chills. She has chronic intermittent urinary incontinence. She states that her urine has been darker than usual and has smelt foul. Review of Systems Review of Systems: 12 systems were reviewed with pertinent positives and negatives per HPI. Except as documented in the HPI, all other systems were reviewed and are negative. [facility] Past Medical History Medical History (Updated 09/17/22 @ 07:27 by Beatriz De Paz DO) Abdominal aortic aneurysm Anxiety Arthritis Chronic anemia Chronic kidney disease, stage 3 Chronic obstructive pulmonary disease Chronic respiratory failure with hypoxia Chronically on oxygen at 4 - 5 L per nasal cannula. Closed intertrochanteric fracture of right hip (10/2019) Treated non operatively. Congestive heart failure Diastolic with most recent echocardiogram January 2019 demonstrating paradoxical septal motion consistent with right ventricular volume overload or elevated right ventricular end-diastolic pressure, EF 60-65%, mildly increased left ventricular wall thickness, grade 1 diastolic dysfunction, severely reduced right ventricular systolic function, severely enlarged right ventricular chamber, severely enlarged right atrial chamber, [id number] mitral valve regurgitation, trace tricuspid regurgitation, mild pulmonary hypertension with RVSP of 46 Coronary artery disease May 2017: stent x3 to the mid LAD, mid circumflex, and mid RCA. Deemed not to be an operable candidate due to severity of underlying lung disease. 06/2019: stent to the distal RCA, angioplasty to PDA. Depression Esophageal ring Gastroesophageal reflux disease Generalized osteoarthritis of multiple sites GERD (gastroesophageal reflux disease) Hyperlipidemia Hyperlipidemia Hypertension Irritable bowel syndrome [place] systemic steroid user Obstructive sleep apnea With last sleep study March 2019 recommending auto bilevel with 5 L of oxygen. Paroxysmal supraventricular tachycardia (02/2018) Status post cardiac ablation per Dr. Alvares. Peripheral arterial disease Extensive calcification of the abdominal aorta, renal arteries, celiac and mesenteric arteries, iliac and femoral arteries on CT taken 12/12/2020. Peripheral neuropathy Pulmonary embolism 05/2022 with small thrombus burden of the left upper and lower lobe Pulmonary nodules Rheumatoid arthritis Subarachnoid hemorrhage (01/17/18) Sustained in a fall, treated conservatively. Subclavian artery stenosis, left Swelling of lower extremity Type 2 diabetes mellitus Hemoglobin A1c was 6.5% in April 2020. Surgical History Surgi
[2022-09-17] MEDS: AMIODARONE 360 MG/D5W 200 ML 360 MG/200 ML BAG 16.67 MG IV CONT (06:52)
--- NOTE | 2022-09-17 07:07 | PC.NURSE ---
Paper documentation exists on this patient due to [facility] downtime on 09/17/22 from [id number] .
[2022-09-17 07:28] LABS: Troponin I 0.022 ng/mL (0.000-0.034)
[2022-09-17 07:46] LABS: Troponin I 0.021 ng/mL (0.000-0.034)
[2022-09-17] MEDS: FLUTICASONE/UMECLIDIN/VILANTER 100-62.5-25 MCG ELLIPTA 1 PUFF INHALATION (07:56)
[2022-09-17] MEDS: METOPROLOL TARTRATE 12.5 MG TABLET PO ×2 (08:43→20:43)
[2022-09-17] MEDS: ATORVASTATIN 20 MG TABLET PO (08:43)
[2022-09-17] MEDS: MAGNESIUM OXIDE 400 MG TABLET PO (08:43)
[2022-09-17] MEDS: BUMETANIDE 1 MG TABLET 2 MG PO (08:44)
[2022-09-17] MEDS: ENOXAPARIN 60 MG/0.6 ML SYRINGE SUB-Q ×2 (08:44→20:43)
[2022-09-17] MEDS: POTASSIUM CHLORIDE 20 MEQ PACKET (FOR LIQUID) PO (08:44)
[2022-09-17] MEDS: HYDROcodone/acetaminophen (*CRX) 5-325 MG TABLET 1 TAB PO ×2 (08:45→22:08)
[2022-09-17] MEDS: ASPIRIN 81 MG CHEWABLE TABLET PO (08:45)
[2022-09-17] MEDS: LEVOTHYROXINE SODIUM 25 MCG TABLET PO (08:45)
[2022-09-17] MEDS: metFORMIN HCL 500 MG TABLET PO ×2 (08:46→18:39)
[2022-09-17] MEDS: guaiFENesin 12 HR 600 MG TABCR PO ×2 (08:46→20:42)
[2022-09-17] MEDS: LORATADINE 10 MG TABLET PO (08:46)
[2022-09-17] MEDS: PANTOPRAZOLE 40 MG TABLET PO ×2 (08:47→20:42)
[2022-09-17] MEDS: ROFLUMILAST 500 MCG TABLET PO (08:48)
[2022-09-17] MEDS: SERTRALINE HCL 50 MG TABLET PO (08:48)
[2022-09-17] MEDS: predniSONE 10 MG TABLET PO (08:49)
[2022-09-17] MEDS: ISOSORBIDE MONONITRATE 60 MG TAB.ER.24H PO (08:50)
[2022-09-17] MEDS: LOSARTAN POTASSIUM 50 MG TABLET PO (08:50)
--- NOTE | 2022-09-17 09:01 | PM.IMPN ---
Progress Note: A&P Assessment and Plan (1) Atrial fibrillation with rapid ventricular response: Code(s): I48.91 - Unspecified atrial fibrillation Status: Acute Assessment and Plan: In the emergency department patient noted to be in apparent atrial fibrillation with rapid ventricular response rate 150-200s which was not adequately responsive to diltiazem. This improved and converted to sinus rhythm with amiodarone drip. Now that patient is in sinus rhythm she no longer has worsening difficulty breathing or chest pain. (2) Chronic respiratory failure with hypoxia: Code(s): J96.11 - Chronic respiratory failure with hypoxia Status: Acute Assessment and Plan: Due to chronic COPD patient wears oxygen at 4 liters/minute via nasal cannula at home. She was on 5 liters/minute when I evaluated her and she requested to turn it down to 4 L said she was feeling better. (3) CHF exacerbation: Qualifiers: Heart failure type: diastolic Qualified Code(s): I50.33 - Acute on chronic diastolic (congestive) heart failure Code(s): I50.9 - Heart failure, unspecified Status: Acute Assessment and Plan: The patient does have evidence of heart failure with chest x-ray demonstrating interstitial edema.? Likely secondary to high-output heart failure with a component of diastolic dysfunction with her atrial fibrillation that is been ongoing for at least 2 days prior to her presenting to the ER.? Will place patient on Bumex and monitor strict I&O's and daily weights.? Will resume the patient's home metoprolol and losartan. (4) Essential hypertension: Code(s): I10 - Essential (primary) hypertension Status: Acute Assessment and Plan: Continue home medications and monitor. (5) Hypomagnesemia: Code(s): E83.42 - Hypomagnesemia Status: Acute Assessment and Plan: Significantly low level at 0.9 likely contributory to development of tachyarrhythmia. Will give 4 g magnesium over 4 hours IV and reassess level this evening and in the morning. (6) Hypokalemia due to excessive gastrointestinal loss of potassium: Code(s): E87.6 - Hypokalemia Status: Acute Assessment and Plan: Significantly low level at 2.8 likely contributory to development of tachyarrhythmia. We will replace oral and IV supplementation and reassess level this evening and in the morning. Plan Optimize potassium and magnesium levels as patient has likely lost significant amount acutely due to recent diarrhea and GI illness. Cardiology consult appreciate recommendations. Patient is considering palliative care/hospice and I informed her to let me know if she makes a decision during this hospitalization. Continue cardiac monitoring. Resume heart healthy low-sodium diet. Time Spent With Patient Time with patient: Greater than 35 minutes (Total approximately 75 minutes spent at bedside discussing acute and chronic illnesses with patient and her ) Subjective Date/time seen: 09/17/22 11:00 Interval history: 09/17 Rounding patient reports that she has been short of breath if diarrhea and chest discomfort the past 2 days a delayed coming into the hospital because she does not like to get stuck with needles. Patient states that she is on home oxygen at 4 liters/minute due to bad COPD. She notes that she has had a prior ablation for atrial fibrillation with RVR. Patient was found to have rapid heart rate between 150 and 200 while she was in the emergency department with EKG that appeared to be atrial fibrillation with RVR. Patient was started on diltiazem drip and then added amiodarone drip after a phone conversation with Cardiology. Patient reports that she has had numerous problems with her heart with her rheumatoid arthritis and with her COPD and she feels like she may be at the point to consider hospice care/palliative care. Currently patient states that her breathing feels better and her ches
[2022-09-17 10:02] LABS: Hematocrit 29.9 % (37.0-47.0); Hemoglobin 8.6 g/dL (12.0-15.0); Mean Corpuscular HGB Conc 28.8 g/dl (32-36); Mean Corpuscular Hemoglobin 23.6 pg (26-34); Mean Corpuscular Volume 81.9 fl (80-100); Mean Platelet Volume 11.2 fl (7.4-10.4); Platelet Count Result 243 k/mm3 (150-375); Red Blood Count 3.65 M/mm3 (4.2-5.4); Red Cell Distribution Width 16.2 % (11.5-14.5); White Blood Count 5.9 K/mm3 (4.5-10.0)
[2022-09-17 10:13] LABS: Anion Gap 10 mmol/L (8-16); Blood Urea Nitrogen 19 mg/dL (7-17); Calcium 7.4 mg/dL (8.4-10.2); Carbon Dioxide 29 mmol/L (22-30); Chloride 102 mmol/L (98-107); Estimated CRCL calculation 32 ml/min; Estimated Glomerular Filt Rate 49; Glucose 97 mg/dL (65-110); Magnesium 0.9 mg/dL (1.6-2.3); Potassium 2.8 mmol/L (3.4-5.0); Sodium 141 mmol/L (137-145)
[2022-09-17] MEDS: POTASSIUM CHLORIDE 20 MEQ ER TABLET 40 MEQ PO (11:33)
[2022-09-17] MEDS: SUCRALFATE 1 GM TABLET PO ×3 (11:33→20:43)
[2022-09-17] MEDS: POTASSIUM CHLORIDE INJ 40 MEQ in SODIUM CHLORIDE 0.9% IV 500 ML 130 MEQ IVPB (11:33)
[2022-09-17] MEDS: MAGNESIUM SULF 4 GM/WATER100ML 4 GM/100 ML BAG IVPB (11:34)
--- NOTE | 2022-09-17 11:54 | PCCCNOTE ---
On 09/17/22, the student, [Darlene Hernandez], provided care and completed [facility] documentation on this patient. I have reviewed the student's documentation and agree with the findings.
[2022-09-17 12:01] LABS: Glucose Point of Care 125 mg/dl (65-105)
--- NOTE | 2022-09-17 13:21 | PM.CNCAR ---
Assessment and Plan Assessment and plan (1) Chest pain: Qualifiers: Chest pain type: unspecified Qualified Code(s): R07.9 - Chest pain, unspecified Code(s): R07.9 - Chest pain, unspecified Status: Acute Plan this is a 72-year-old lady with multivessel coronary disease underwent multivessel PCI in 2018 because she was deemed to be excessively high risk for bypass surgery because of her COPD. This procedure was done at [facility]. She also has significant underlying chronic lung disease as has been mentioned in the chart by others notes. He enters the hospital yesterday evening with weakness shortness of breath and some chest pain she was tachycardic with a fast rhythm and a irregularly irregular heart rate. On casual inspection her electrocardiogram would be mistaken as showing atrial fibrillation in my opinion the rhythm was multi focal atrial tachycardia. She is stable now is breathing comfortably. I am going to stop IV amiodarone his I do not believe was atrial fibrillation. I will notify my partner, Dr. Farr this admission. It is unclear to me is whether he should be taking not since is admitted was listed in office note several months ago but not is not currently listed in the hospital records as a home medication. Other than this I do not have any specific cardiac recommendations to make we will follow her with you and provide recommendations depending on whether she develops recurrent arrhythmias or not while she is here once again I do not believe the presenting arrhythmia was atrial fibrillation as I mentioned above Terrence Lr MD [facility] History of Present Illness History of Present Illness Consult date/time: 09/17/22 13:21 Reason For Visit: Atrial Fibrillation with Rapid Ventricular Respons Narrative: this is a 72-year-old woman I am seeing at the request of the hospitalist with the stated reason for consultation being atrial fibrillation with rapid ventricular response. The patient has been seen by me in the past but is primarily followed in our practice by my partner, Dr. Farr with a history of coronary artery disease and a history of atrial tachyarrhythmias for which she has been treated by our practice as well as the electrophysiology service at [facility]. The patient was in her usual state of health when she noticed over the course of the last week or so she has been having problems feeling sick . initially she could not be any more specific than that. She then states that she was having some difficulty with breathing as well as the sense of tachycardia. Because of some chest pain that occurred yesterday she finally came to the emergency and was admitted to the hospital. In the emergency room she was tachycardic with an irregular rhythm and her 12 lead ECG was interpreted as showing atrial fib with rapid ventricular response. On my personal review of this ECG I would have made the diagnosis of multifocal atrial tachycardia as there appear to be multi form IP waves rather than kaitlin atrial fibrillation. She has had atrial tachyarrhythmias on other admissions to the hospital where other admit in my group and also doubt that the diagnosis of atrial fibrillation. In any event I do not have the records of the electrophysiology evaluation at my disposal at the time this dictation but at the moment she is in sinus rhythm and appears to be comfortable. After she was admitted last night she was placed on intravenous amiodarone infusion. She does not have amiodarone listed in the chart as home medication although when she was in our office for her most recent appointment in April of this year it was listed on home med list. In any event in this setting I am seeing her in consultation. Coronary artery disease also is significant and dates back to I believe in 2018 when she was hospitalized here with ischemic chest pain. Catheterization demonstrated good LV function but mul
[2022-09-17 16:15] LABS: Glucose Point of Care 176 mg/dl (65-105)
[2022-09-17 18:01] LABS: Anion Gap 8 mmol/L (8-16); Blood Urea Nitrogen 20 mg/dL (7-17); Calcium 7.5 mg/dL (8.4-10.2); Carbon Dioxide 28 mmol/L (22-30); Chloride 103 mmol/L (98-107); Estimated CRCL calculation 28 ml/min; Estimated Glomerular Filt Rate 40; Glucose 169 mg/dL (65-110); Magnesium 2.3 mg/dL (1.6-2.3); Potassium 4.8 mmol/L (3.4-5.0); Sodium 139 mmol/L (137-145)
[2022-09-17 20:07] LABS: Glucose Point of Care 169 mg/dl (65-105)
[2022-09-18] VITALS (9 sets, daily range): BP systolic 174–180; BP diastolic 80–95; PULSE 72–92; RESP 18–20; TEMP 36.1–36.4; O2SAT 98–100
[2022-09-18] MEDS: ACETAMINOPHEN 325 MG TABLET 650 MG PO (03:45)
[2022-09-18 04:57] LABS: Hematocrit 29.2 % (37.0-47.0); Hemoglobin 8.6 g/dL (12.0-15.0); Mean Corpuscular HGB Conc 29.5 g/dl (32-36); Mean Corpuscular Volume 81.6 fl (80-100); Platelet Count Result 228 k/mm3 (150-375); Red Blood Count 3.58 M/mm3 (4.2-5.4); White Blood Count 4.7 K/mm3 (4.5-10.0)
[2022-09-18 05:07] LABS: Anion Gap 5 mmol/L (8-16); Blood Urea Nitrogen 21 mg/dL (7-17); Calcium 7.5 mg/dL (8.4-10.2); Carbon Dioxide 32 mmol/L (22-30); Chloride 102 mmol/L (98-107); Estimated CRCL calculation 28 ml/min; Estimated Glomerular Filt Rate 40; Glucose 102 mg/dL (65-110); Potassium 4.5 mmol/L (3.4-5.0); Sodium 139 mmol/L (137-145)
[2022-09-18] MEDS: SUCRALFATE 1 GM TABLET PO (05:37)
[2022-09-18] MEDS: LEVOTHYROXINE SODIUM 25 MCG TABLET PO (05:37)
[2022-09-18 08:07] LABS: Glucose Point of Care 90 mg/dl (65-105)
[2022-09-18] MEDS: HYDROcodone/acetaminophen (*CRX) 5-325 MG TABLET 1 TAB PO (08:30)
[2022-09-18] MEDS: ROFLUMILAST 500 MCG TABLET PO (08:31)
[2022-09-18] MEDS: METOPROLOL TARTRATE 12.5 MG TABLET PO (08:31)
[2022-09-18] MEDS: POTASSIUM CHLORIDE 20 MEQ PACKET (FOR LIQUID) PO (08:31)
[2022-09-18] MEDS: PANTOPRAZOLE 40 MG TABLET PO (08:31)
[2022-09-18] MEDS: SERTRALINE HCL 50 MG TABLET PO (08:31)
[2022-09-18] MEDS: MAGNESIUM OXIDE 400 MG TABLET PO (08:32)
[2022-09-18] MEDS: predniSONE 10 MG TABLET PO (08:32)
[2022-09-18] MEDS: ENOXAPARIN 60 MG/0.6 ML SYRINGE SUB-Q (08:32)
[2022-09-18] MEDS: guaiFENesin 12 HR 600 MG TABCR PO (08:32)
[2022-09-18] MEDS: ISOSORBIDE MONONITRATE 60 MG TAB.ER.24H PO (08:32)
[2022-09-18] MEDS: LOSARTAN POTASSIUM 50 MG TABLET PO (08:32)
[2022-09-18] MEDS: LORATADINE 10 MG TABLET PO (08:32)
[2022-09-18] MEDS: ATORVASTATIN 20 MG TABLET PO (08:32)
[2022-09-18] MEDS: BUMETANIDE 1 MG TABLET 2 MG PO (08:32)
[2022-09-18] MEDS: ASPIRIN 81 MG CHEWABLE TABLET PO (08:33)
[2022-09-18] MEDS: metFORMIN HCL 500 MG TABLET PO (08:33)
[2022-09-18] MEDS: FLUTICASONE/UMECLIDIN/VILANTER 100-62.5-25 MCG ELLIPTA 1 PUFF INHALATION (09:41)
--- NOTE | 2022-09-18 10:36 | PM.PNCARD ---
Progress Note: A&P Assessment and Plan (1) Chest pain: Qualifiers: Chest pain type: unspecified Qualified Code(s): R07.9 - Chest pain, unspecified Code(s): R07.9 - Chest pain, unspecified Status: Acute Assessment and Plan: Resolved and likely related to underlying CAD in the setting of tachycardia and anemia. Currently resolved (2) Multifocal atrial tachycardia: Code(s): I47.1 - Supraventricular tachycardia Status: Acute Assessment and Plan: Initial presenting rhythm was likely multifocal atrial tachycardia. Amiodarone was previously stopped. Would continue to treat her with metoprolol and could add diltiazem if need be. At this point though she is stable remains in sinus rhythm and I am okay discharge at this point. (3) Coronary artery disease: Code(s): I25.10 - Atherosclerotic heart disease of [place] coronary artery without angina pectoris Status: Acute Assessment and Plan: Continue isosorbide, metoprolol, losartan, aspirin, statin Plan Okay for discharge Subjective Date/time seen: 09/18/22 10:36 Interval history: 72-year-old with COPD, atrial fibrillation, CAD presented with shortness of breath or chest pain Date of service 09/18/2022: She is back in sinus rhythm. She feels fine and back to baseline shortness of breath. No chest pain. No swelling. Okay for discharge Review of Systems Constitutional: Constitutional: Reports weakness Eyes: Eyes: Reports no additional eye complaints ENT: Reports system reviewed and no additional complaints, except as documented Cardiovascular: Cardiovascular: Reports as per HPI, Reports no additional cardiovascular complaints, Reports chest pain and Reports dyspnea on exertion Respiratory: Respiratory: Reports dyspnea on exertion Gastrointestinal: Gastrointestinal: Reports no additional gastrointestinal complaints Musculoskeletal: Musculoskeletal: Reports back pain Integumentary/Breasts: Skin/Breast: Reports system reviewed and no additional complaints, except as docu Neurologic: Reports system reviewed and no additional complaints, except as documented and Reports weakness Endocrine: Endocrine: Reports no additional endocrine complaints Hematologic/Lymphatic: Hematologic/Lymphatic: Reports no additional hematologic/lymphatic complaints Allergic/Immunologic: Allergic/Immunologic: Reports no additional allergic/immunologic complaints Exam Const: General: comfortable and no acute distress HENMT: Mouth: Yes moist mucous membranes Eyes: Sclera: sclerae normal Neck: Neck: supple and no JVD Resp: Other: Breath sounds are diminished bilaterally. No active wheezing there are some large airway rhonchi noted bilaterally. Cardio: Rate: regular rate Rhythm: regular rhythm Other: No gallop very soft systolic murmur audible at the left sternal border GI: Auscultation: normal bowel sounds Skin: General skin exam: normal color Neuro: Other: alert and oriented x3 Extrem: Other: no significant edema distal pulses are diminished below the femoral triangle Objective Data Vital Signs Vital Signs: Vital Signs - 24 hr 09/17/22 11:32 09/17/22 12:00 09/17/22 14:00 Temperature 36.7 C Pulse Rate 81 87 93 Respiratory Rate 18 Blood Pressure 143/79 H Pulse Oximetry 97 Oxygen Delivery Oxygen Flow Rate Fraction of Inspired Oxygen 09/17/22 12:00 09/17/22 16:24 09/17/22 16:00 Temperature 35.8 C L Pulse Rate 91 80 85 Respiratory Rate 18 20 Blood Pressure 145/66 H Pulse Oximetry 97 99 97 Oxygen Delivery Nasal Cannula Nasal Cannula Oxygen Flow Rate 4 4 Fraction of Inspired Oxygen 09/17/22 16:00 09/17/22 18:00 09/17/22 20:00 Temperature 36.5 C Pulse Rate 85 87 86 Respiratory Rate 20 Blood Pressure 160/80 H Pulse Oximetry 99 Oxygen Delivery Oxygen Flow Rate Fraction of Inspired Oxygen 09/17/22 20:43 0
--- NOTE | 2022-09-18 12:35 | PM.DS ---
DS: Admitting Diagnosis Discharge Date 09/18/22 Admitting Diagnosis Atrial fibrillation with rapid ventricular response CHF exacerbation Essential hypertension Anemia DS: Discharge Diagnosis Discharge Diagnosis (1) Multifocal atrial tachycardia: Code(s): I47.1 - Supraventricular tachycardia Status: Acute (2) Hypokalemia due to excessive gastrointestinal loss of potassium: Code(s): E87.6 - Hypokalemia Status: Acute (3) Hypomagnesemia: Code(s): E83.42 - Hypomagnesemia Status: Acute (4) Anemia: Code(s): D64.9 - Anemia, unspecified Status: Acute (5) Chest pain: Qualifiers: Chest pain type: unspecified Qualified Code(s): R07.9 - Chest pain, unspecified Code(s): R07.9 - Chest pain, unspecified Status: Acute (6) CAD (coronary artery disease): Qualifiers: Coronary Disease-Associated Artery/Lesion type: [place] artery [place] vs. transplanted heart: [place] heart Associated angina: without angina Qualified Code(s): I25.10 - Atherosclerotic heart disease of [place] coronary artery without angina pectoris Code(s): I25.10 - Atherosclerotic heart disease of [place] coronary artery without angina pectoris Status: Acute (7) Chronic respiratory failure with hypoxia: Code(s): J96.11 - Chronic respiratory failure with hypoxia Status: Chronic (8) HTN (hypertension): Code(s): I10 - Essential (primary) hypertension Status: Chronic (9) Rheumatoid arthritis: Code(s): M06.9 - Rheumatoid arthritis, unspecified Status: Acute (10) detention systemic steroid user: Code(s): Z79.52 - 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 Electrolyte abnormalities corrected. Cardiac rhythm sinus rhythm controlled rate. Patient states she feels back to baseline. Cardiology states patient can be discharged. Patient agreeable with discharge. DS: Summary Hospital Course Reason for hospitalization: Rapid heart rate with difficulty breathing chest pain Hospital Course: This is a 72-year-old female patient with long complicated medical history including COPD CAD, hypertension, chronic respiratory failure rheumatoid arthritis who was admitted to the hospital due to chest pain difficulty breathing found to be in a rapid narrow complex irregular rhythm thought to be atrial fibrillation with RVR and later cardiology believes was actually multifocal atrial tachycardia. Symptoms did not improve on diltiazem drip so patient was placed on amiodarone drip and admitted to hospital. Once rhythm converted to sinus rhythm cardiology stopped amiodarone approximately 15 hours of IV treatment. Oxygen was able to be titrated back down to usual dose. Patient found to have significant hypokalemia and hypomagnesemia and prompt replacement was completed. These abnormalities were thought to be due to GI loss vomiting and diarrhea. Potassium and Magnesium were back to normal with morning labs today. She is currently symptom free. She has been evaluated by Cardiology they do not want to restart patient on oral amiodarone. She will be discharged home on her previous medications with no new changes. Status at Discharge Cognitive/behavioral status at discharge: Awake, alert, oriented and pleasant Functional status at discharge: uses cane/walker Overall status at discharge: patient is back to baseline Time Spent with Patient Time attestation: Total time spent providing and/or coordinating discharge services: Time spent: Greater than 30 minutes Exam Narrative: GENERAL: Chronically ill appearing, alert and oriented, in no apparent distress. She is pleasant and conversant in full sentences. HEENT: Pupils are equally round and briskly reactive to light. Extraocular muscles are intact. Oral mucous membranes are moist without lesions. NECK: The patient has no noted
== END 2022-09-18 11:25 | disposition home or self-care (01) ==
LOC: ANHED 22:18 → ANHIMU 23:25
PROVIDERS: Nurse Practitioner; Admitting Provider Internal Medicine; Emergency Provider Emergency Medicine; PCP Family Medicine Sports Medicine; Visit Provider Internal Medicine
DX: I47.1 Supraventricular tachycardia (principal); E87.6 Hypokalemia; E83.42 Hypomagnesemia; I48.91 Unspecified atrial fibrillation; I13.2 Hypertensive heart and chronic kidney disease with heart failure and with stage 5 chronic kidney disease, or end stage renal disease; I50.30 Unspecified diastolic (congestive) heart failure; E11.22 Type 2 diabetes mellitus with diabetic chronic kidney disease; D63.1 Anemia in chronic kidney disease; N18.6 End stage renal disease; R07.9 Chest pain, unspecified; J96.11 Chronic respiratory failure with hypoxia; R94.31 Abnormal electrocardiogram [ECG] [EKG]; F32.A Depression, unspecified; F41.9 Anxiety disorder, unspecified; I25.10 Atherosclerotic heart disease of native coronary artery without angina pectoris; Z95.5 Presence of coronary angioplasty implant and graft; R32 Unspecified urinary incontinence; M06.9 Rheumatoid arthritis, unspecified; K21.9 Gastro-esophageal reflux disease without esophagitis; E11.42 Type 2 diabetes mellitus with diabetic polyneuropathy; E78.5 Hyperlipidemia, unspecified; G47.33 Obstructive sleep apnea (adult) (pediatric); K58.9 Irritable bowel syndrome, unspecified; J44.9 Chronic obstructive pulmonary disease, unspecified; J84.9 Interstitial pulmonary disease, unspecified; F12.90 Cannabis use, unspecified, uncomplicated; Z87.891 Personal history of nicotine dependence; Z79.82 Long term (current) use of aspirin; Z79.51 Long term (current) use of inhaled steroids; Z79.52 Long term (current) use of systemic steroids; Z79.84 Long term (current) use of oral hypoglycemic drugs; Z79.1 Long term (current) use of non-steroidal anti-inflammatories (NSAID); Z79.891 Long term (current) use of opiate analgesic; Z79.899 Other long term (current) drug therapy; Z83.3 Family history of diabetes mellitus
CPT/HCPCS: 36415; 71045; 80048; 80053; 82948; 83735; 83880; 84484; 85025; 85027; 85610; 85730; 93005; 94640; 96365; 96366; 96367; 96372; 96375; 99285; A9270; G0378; J0282; J1650; J3475; J3480; J7040; J7512

== ENCOUNTER 2022-11-03 14:46 | Emergency (ER) | payer MEDICARE, SELFPAY ==
--- NOTE | ~2022-11-03 | XR_ITS ---
EXAMINATION: XR chest 2V Exam Date/Time: 11/03/2022 15:35 CDT HISTORY: CP and SOB SINCE TUESDAY Comparison: 09/16/2022. RESULT: Lines, tubes, and devices: Coronary artery stents. Cholecystectomy clips Lungs and pleura: Senescent and emphysematous change. Mild diffuse reticular opacities. Ill-defined patchy groundglass opacities in the bilateral lower lungs. Cardiomediastinal silhouette: Stable. Other: No acute osseous or upper abdominal finding. IMPRESSION: Interstitial edema. Infection is not excluded. Emphysematous change. Reviewed, dictated and finalized at location K.
--- NOTE | 2022-11-03 14:48 | ECG_ITS ---
Measurements Intervals [place] Rate: 98 P: MI: 0 QRS: -24 QRSD: 104 T: 66 QT: 359 QTc: 460 Interpretive Statements ATRIAL FIBRILLATION CANNOT RULE OUT SEPTAL INFARCT, AGE INDETERMINATE BORDERLINE ST-T WAVE ABNORMALITY- LAT/HIGH LAT LEADS BASELINE ARTIFACT- I, II, III, AVR, AVL, AVF, V1-V2, V6 ABNORMAL ECG COMPARED TO ECG 09/16/2022 20:55:39 HEART RATE HAS DECREASED Electronically Signed On 11-03-2022 14:59:43 CDT by Joshua Bennett D.O.
[2022-11-03 15:00] VITALS: BP 146/76; PULSE 90; RESP 18; TEMP 36.6; O2SAT 100
[2022-11-03 15:31] LABS: Basophils Percent Auto 0.4 % (0.2-1.2); Eosinophils Absolute Auto 0.6 K/mm3 (0-0.3); Eosinophils Percent Auto 12.1 % (0-4.4); Hematocrit 33.2 % (37.0-47.0); Hemoglobin 9.6 g/dL (12.0-15.0); Immature Granulocyte Absolute 0.01 K/mm3 (0.00-0.031); Immature Granulocyte Percent A 0.2 % (0-0.5); Lymphocytes Absolute Auto 1.29 K/mm3 (0.9-3.2); Lymphocytes Percent Auto 27.3 % (18.3-44.2); Mean Corpuscular HGB Conc 28.9 g/dl (32-36); Mean Corpuscular Hemoglobin 24.2 pg (26-34); Mean Corpuscular Volume 83.6 fl (80-100); Mean Platelet Volume 10.5 fl (7.4-10.4); Monocytes Absolute Auto 0.3 K/mm3 (0.1-0.6); Monocytes Percent Auto 5.7 % (2.6-8.5); Neutrophils Absolute Auto 2.6 K/mm3 (1.3-6.7); Neutrophils Percent Auto 54.3 % (45.5-73.1); Platelet Count Result 179 k/mm3 (150-375); Red Blood Count 3.97 M/mm3 (4.2-5.4); White Blood Count 4.7 K/mm3 (4.5-10.0)
[2022-11-03 15:41] LABS: Prothrombin Time 13.5 Seconds (11.1-14.7)
[2022-11-03 15:45] LABS: Alanine Aminotransferase 15 U/L (6-35); Albumin Level 3.8 g/dL (3.5-5.1); Alkaline Phosphatase 103 U/L (38-126); Anion Gap 6 mmol/L (8-16); Aspartate Amino Transferase 36 U/L (14-36); Bilirubin,Total 0.4 mg/dL (0.2-1.3); Blood Urea Nitrogen 25 mg/dL (7-17); Carbon Dioxide 35 mmol/L (22-30); Chloride 101 mmol/L (98-107); Estimated CRCL calculation 32 ml/min; Estimated Glomerular Filt Rate 44; Glucose 134 mg/dL (65-110); Lipase 63 U/L (23-300); Potassium 2.9 mmol/L (3.4-5.0); Sodium 142 mmol/L (137-145)
[2022-11-03 15:55] LABS: Platelet Estimate Adequate (Adequate)
[2022-11-03 15:56] LABS: Hypochromasia 1+ (NORMAL); Schistocytes None Seen (NORMAL); Troponin I 0.014 ng/mL (0.000-0.034)
[2022-11-03 15:57] LABS: Anisocytosis 3+ (NORMAL)
[2022-11-03 18:38] LABS: Troponin I 0.033 ng/mL (0.000-0.034)
[2022-11-03 19:48] VITALS: BP 186/80; PULSE 91; PULSE 92; RESP 14; O2SAT 100
[2022-11-03 19:51] VITALS: O2SAT 100
[2022-11-03 20:46] VITALS: BP 184/74; PULSE 84; RESP 15; O2SAT 100
[2022-11-03 21:20] LABS: Troponin I 0.038 ng/mL (0.000-0.034)
--- NOTE | 2022-11-03 21:22 | ECG_ITS ---
Measurements Intervals [place] Rate: 78 P: 65 NM: 154 QRS: -36 QRSD: 106 T: 60 QT: 426 QTc: 486 Interpretive Statements SINUS RHYTHM ATRIAL PREMATURE COMPLEXES LEFT AXIS DEVIATION POSSIBLE LEFT ATRIAL ENLARGEMENT CANNOT RULE OUT SEPTAL INFARCT, AGE INDETERMINATE BORDERLINE ST ABNORMALITY- ANTEROLAT/HIGH LAT LEADS BASELINE ARTIFACT- I, II, III, AVR, AVL, V1 ABNORMAL ECG COMPARED TO ECG 11/03/2022 14:56:58 SINUS RHYTHM NOW PRESENT LEFT-AXIS DEVIATION NOW PRESENT Electronically Signed On 11-04-2022 8:19:26 CDT by Joshua Bennett D.O.
--- NOTE | 2022-11-03 22:23 | ED.CHESTPAIN ---
HPI - Chest Pain General Chief Complaint: Chest Pain Stated Complaint: CP Time Seen by Provider: 11/03/22 19:47 History of Present Illness HPI narrative: 72-year-old female with history of multifocal atrial tachycardia presented emergency department for evaluation for chest pain that occurred earlier today during an episode of tachycardia. Patient states at noon she had approximately 1 hour of rapid heart rate. Patient reports during this time she did have some chest pain. Upon arrival to the ED patient states that chest pain and tachycardia has resolved. Patient reports she has had a prior ablation and does have history of coronary artery disease. In the ED patient denies any current complaints. Related Data Home Medications Medication Instructions Recorded Confirmed aspirin 81 mg tablet 81 mg PO DAILY 07/12/20 10/07/22 atorvastatin 20 mg tablet 20 mg PO DAILY 01/06/21 10/07/22 losartan 50 mg tablet 50 mg PO DAILY 01/06/21 10/07/22 metformin 500 mg tablet 500 mg PO BID 01/06/21 10/07/22 nitroglycerin 0.4 mg sublingual 0.4 mg sublingual Q5M PRN Chest 09/17/21 10/07/22 tablet Pain acetaminophen 325 mg tablet 325 mg PO Q6H PRN Pain 09/18/21 10/07/22 hydrocodone 5 mg-acetaminophen 325 1 tablet PO Q6-8H PRN Pain 09/18/21 10/07/22 mg tablet bumetanide 1 mg tablet 2 mg PO DAILY 05/28/22 10/07/22 isosorbide mononitrate 60 mg 60 mg PO DAILY 05/28/22 10/07/22 tablet,extended release 24 hr ondansetron 4 mg disintegrating 4 mg PO Q6H PRN Nausea 05/28/22 10/07/22 tablet potassium chloride 20 mEq oral 20 meq PO DAILY 05/28/22 10/07/22 packet (Klsusanne-Con) sertraline 100 mg tablet 50 mg PO DAILY 05/28/22 10/07/22 cetirizine 5 mg tablet 5 mg PO DAILY 06/17/22 10/07/22 levothyroxine 25 mcg tablet 25 mcg PO DAILY 06/17/22 10/07/22 magnesium 200 mg tablet 400 mg PO DAILY 06/17/22 10/07/22 roflumilast 500 mcg tablet 500 mcg PO DAILY 09/17/22 10/07/22 Allergies Allergy/AdvReac Type Severity Reaction Status Date / Time morphine Allergy Intermediate Itching Verified 10/07/22 13:08 pregabalin Allergy Intermediate Itching Verified 10/07/22 13:08 Review of Systems Review of Systems: All systems reviewed & are unremarkable except as noted in HPI and below PMFSH Past Medical History Medical History Abdominal aortic aneurysm Anxiety Arthritis Chronic anemia Chronic kidney disease, stage 3 Chronic obstructive pulmonary disease Chronic respiratory failure with hypoxia Chronically on oxygen at 4 - 5 L per nasal cannula. Closed intertrochanteric fracture of right hip (10/2019) Treated non operatively. Congestive heart failure Diastolic with most recent echocardiogram January 2019 demonstrating paradoxical septal motion consistent with right ventricular volume overload or elevated right ventricular end-diastolic pressure, EF 60-65%, mildly increased left ventricular wall thickness, grade 1 diastolic dysfunction, severely reduced right ventricular systolic function, severely enlarged right ventricular chamber, severely enlarged right atrial chamber, [id number] mitral valve regurgitation, trace tricuspid regurgitation, mild pulmonary hypertension with RVSP of 46 Coronary artery disease May 2017: stent x3 to the mid LAD, mid circumflex, and mid RCA. Deemed not to be an operable candidate due to severity of underlying lung disease. 06/2019: stent to the distal RCA, angioplasty to PDA. 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 Paroxysmal supraventricular tachycardia (02/2018) Status post cardiac ablation per Dr. Alvares. Peripheral arterial disease Extensive husam
[2022-11-03 22:58] VITALS: BP 188/78; PULSE 74; RESP 15; O2SAT 99
== END 2022-11-03 23:00 | disposition home or self-care (01) ==
PROVIDERS: Emergency Provider Emergency Medicine; PCP Family Medicine Sports Medicine
DX: I47.1 Supraventricular tachycardia (principal); R77.8 Other specified abnormalities of plasma proteins; I13.0 Hypertensive heart and chronic kidney disease with heart failure and stage 1 through stage 4 chronic kidney disease, or unspecified chronic kidney disease; E11.22 Type 2 diabetes mellitus with diabetic chronic kidney disease; N18.30 Chronic kidney disease, stage 3 unspecified; I50.9 Heart failure, unspecified; I25.10 Atherosclerotic heart disease of native coronary artery without angina pectoris; J96.11 Chronic respiratory failure with hypoxia; E78.5 Hyperlipidemia, unspecified; D64.9 Anemia, unspecified; E11.51 Type 2 diabetes mellitus with diabetic peripheral angiopathy without gangrene; I73.9 Peripheral vascular disease, unspecified; E11.42 Type 2 diabetes mellitus with diabetic polyneuropathy; K21.9 Gastro-esophageal reflux disease without esophagitis; M19.90 Unspecified osteoarthritis, unspecified site; M06.9 Rheumatoid arthritis, unspecified; G47.33 Obstructive sleep apnea (adult) (pediatric); F41.9 Anxiety disorder, unspecified; F32.A Depression, unspecified; K58.9 Irritable bowel syndrome, unspecified; Z95.5 Presence of coronary angioplasty implant and graft; Z87.442 Personal history of urinary calculi; Z86.711 Personal history of pulmonary embolism; Z87.891 Personal history of nicotine dependence; Z98.42 Cataract extraction status, left eye; Z98.41 Cataract extraction status, right eye; Z90.49 Acquired absence of other specified parts of digestive tract; Z90.710 Acquired absence of both cervix and uterus; Z79.82 Long term (current) use of aspirin; Z79.84 Long term (current) use of oral hypoglycemic drugs; I48.91 Unspecified atrial fibrillation; I49.1 Atrial premature depolarization; R94.31 Abnormal electrocardiogram [ECG] [EKG]
CPT/HCPCS: 36415; 71046; 80053; 83690; 84484; 85025; 85610; 85730; 93005; 99284

== ENCOUNTER 2022-11-17 11:10 | Outpatient (CLI) | payer MEDICARE, SELFPAY ==
[2022-11-17 11:56] LABS: Hematocrit 31.8 % (37.0-47.0); Hemoglobin 9.2 g/dL (12.0-15.0); Mean Corpuscular HGB Conc 28.9 g/dl (32-36); Mean Corpuscular Hemoglobin 23.9 pg (26-34); Mean Corpuscular Volume 82.6 fl (80-100); Mean Platelet Volume 10.3 fl (7.4-10.4); Platelet Count Result 195 k/mm3 (150-375); Red Blood Count 3.85 M/mm3 (4.2-5.4); Red Cell Distribution Width 18.3 % (11.5-14.5); White Blood Count 5.8 K/mm3 (4.5-10.0)
[2022-11-17 12:28] LABS: Alanine Aminotransferase 11 U/L (6-35); Albumin Level 3.6 g/dL (3.5-5.1); Alkaline Phosphatase 87 U/L (38-126); Anion Gap 5 mmol/L (8-16); Aspartate Amino Transferase 23 U/L (14-36); Bilirubin,Total 0.6 mg/dL (0.2-1.3); Blood Urea Nitrogen 35 mg/dL (7-17); Calcium 7.1 mg/dL (8.4-10.2); Carbon Dioxide 38 mmol/L (22-30); Chloride 96 mmol/L (98-107); Estimated Glomerular Filt Rate 26; Glucose 123 mg/dL (65-110); Lipase 48 U/L (23-300); Potassium 4.2 mmol/L (3.4-5.0); Sodium 139 mmol/L (137-145)
== END 2022-11-17 11:11 | disposition home or self-care (01) ==
PROVIDERS: PCP Family Medicine Sports Medicine; Visit Provider Nurse Practitioner
DX: J96.11 Chronic respiratory failure with hypoxia (principal); E87.6 Hypokalemia; R10.13 Epigastric pain; R11.2 Nausea with vomiting, unspecified; K92.1 Melena
CPT/HCPCS: 36415; 80053; 83690; 85027

== ENCOUNTER 2022-11-23 14:42 | Outpatient (CLI) | payer MEDICARE, SELFPAY ==
--- NOTE | ~2022-11-23 | CT_ITS ---
EXAMINATION: CT abdomen pelvis wo con DATE: 11/23/2022 15:37 INDICATION: Epigastric pain TECHNIQUE: Computed tomography (CT) of the abdomen and pelvis was performed without intravenous contr ast. The dose-length product was 218.29 mGy-cm. Automated exposure control and iterative reconstructi on technique were employed. COMPARISON: CT dated 12/12/2020. FINDINGS: Coarse interstitial changes are present peripherally consistent with interlobular septal th ickening. Findings suspicious for chronic interstitial lung disease. Heart size normal. No significan t pleural or pericardial effusion. There is suprarenal abdominal aortic aneurysm measuring 3.9 cm sta tus post cholecystectomy. There is extensive atherosclerosis of the upper abdominal arteries. The liver, adrenal glands are unremarkable. There is right renal atrophy. There is mild bilateral hyd ronephrosis. Status post cholecystectomy. There is splenomegaly. No free air or free fluid. Nonobstru ctive bowel gas pattern. No lymphadenopathy. IMPRESSION: 1. Moderate diffuse atherosclerosis with suprarenal abdominal aortic aneurysm measuring 3.9 cm. 2: Mild bilateral hydronephrosis. 3: Splenomegaly. 4: Coarse interstitial infiltrates of the lung bases, suggesting chronic interstitial fibrosis. Reviewed, dictated and finalized at location B. IMPRESSION: 1. Moderate diffuse atherosclerosis with suprarenal abdominal aortic aneurysm m easuring 3.9 cm. 2: Mild bilateral hydronephrosis. 3: Splenomegaly. 4: Coarse interstitial infiltrates of the lung bases, suggesting chronic inters titial fibrosis.
[2022-11-23 15:19] LABS: Estimated Glomerular Filt Rate 26
== END 2022-11-23 14:43 | disposition home or self-care (01) ==
PROVIDERS: PCP Family Medicine Sports Medicine; Visit Provider Nurse Practitioner
DX: I70.91 Generalized atherosclerosis (principal); I71.40 Abdominal aortic aneurysm, without rupture, unspecified; N13.30 Unspecified hydronephrosis
CPT/HCPCS: 74176

== ENCOUNTER 2022-11-26 07:50 | Outpatient (CLI) | payer MEDICARE, SELFPAY ==
--- NOTE | ~2022-11-26 | NM_ITS ---
EXAM: NM gastric emptying study DATE: 11/26/2022 12:37 INDICATION: Nausea with vomiting, unspecified. TECHNIQUE: A gastric emptying study was performed using the methodology of Yue HINES, et al. J Nucl Med 2007; 48:568-572. The patient was given a meal consisting of 2 scrambled eggs labeled with 0.977 mCi Tc-99m sulfur colloid, 2 slices of toast, two packages of jam, and approximately 120 mL of water . Simultaneous anterior and posterior 1-min images of the abdomen were obtained with the patient supi ne at multiple time points over a total period of 4 hours. The geometric mean of anterior and posteri or views was determined, and the percentage retention was calculated for each time point. COMPARISON: CT abdomen and pelvis 11/23/2022 FINDINGS: Gastric retention of the radiotracer-labeled meal was 62%, 37%, and 6% at the 1-hour, 2-ho ur, and 4-hour time points, respectively. With this technique, apparent rapid gastric emptying is sug gested by <30% gastric retention at 1 hour. Delayed gastric emptying is defined by gastric retention of >90% at 1 hour, >60% retention at 2 hours, or >10% retention at 4 hours. IMPRESSION: 1. Normal gastric emptying. Reviewed, dictated and finalized at location E. IMPRESSION: 1. Normal gastric emptying.
== END 2022-11-26 07:51 | disposition home or self-care (01) ==
LOC: ANHIMG 07:52
PROVIDERS: PCP Family Medicine Sports Medicine; Visit Provider Nurse Practitioner
DX: R11.2 Nausea with vomiting, unspecified (principal)
CPT/HCPCS: 78264; A9541

== ENCOUNTER 2022-12-08 01:23 | Day surgery (SDC) | payer MEDICARE, SELFPAY ==
[2022-11-29 15:50] VITALS: BMI 21.2
[2022-12-08 10:00] VITALS: BP 146/87; PULSE 74; RESP 18; TEMP 36.4; O2SAT 96; BMI 20.7
[2022-12-08] MEDS: LACTATED RINGERS 1,000 ML 150 ML IV CONT (10:42)
--- NOTE | 2022-12-08 10:51 | WPDANESEPPF ---
Anes - Initial Pre Proc Eval Procedure: Operation Date: 12/08/22 11:00 Proposed Procedures p Esophagogastroduodenoscopy - Felix Werner MD Date/Time: 12/08/22 10:51 Surgeon: Felix Werner MD Pre Op Diagnosis: epigastric pain, melena, nausea with vomiting unsp Patient Data Age: 72 Gender: F Height: 1.6 m Weight: 53.2 kg Last Vital Signs Temp 36.4 C 12/08/22 10:00 Pulse 74 12/08/22 10:00 Resp 18 12/08/22 10:00 BP 146/87 H 12/08/22 10:00 Pulse Ox 96 12/08/22 10:00 O2 Del Method Room Air 12/08/22 10:00 Allergies Allergy/AdvReac Type Severity Reaction Status Date / Time morphine Allergy Intermediate Itching Verified 12/08/22 10:16 pregabalin Allergy Intermediate Itching Verified 12/08/22 10:16 Home Medications Medication Instructions Recorded Confirmed Type aspirin 81 mg tablet 81 mg PO DAILY 07/12/20 12/08/22 History atorvastatin 20 mg tablet 20 mg PO DAILY 01/06/21 12/08/22 History losartan 50 mg tablet 50 mg PO DAILY 01/06/21 12/08/22 History metformin 500 mg tablet 500 mg PO BID 01/06/21 12/08/22 History nitroglycerin 0.4 mg sublingual 0.4 mg sublingual Q5M PRN Chest 09/17/21 12/08/22 History tablet Pain acetaminophen 325 mg tablet 325 mg PO Q6H PRN Pain 09/18/21 12/08/22 History hydrocodone 5 mg-acetaminophen 325 1 tablet PO Q6-8H PRN Pain 09/18/21 12/08/22 History mg tablet bumetanide 1 mg tablet 2 mg PO DAILY 05/28/22 12/08/22 History isosorbide mononitrate 60 mg 60 mg PO DAILY 05/28/22 12/08/22 History tablet,extended release 24 hr potassium chloride 20 mEq oral 20 meq PO DAILY 05/28/22 12/08/22 History packet (Klor-Con) sertraline 100 mg tablet 100 mg PO DAILY 05/28/22 12/08/22 History levothyroxine 25 mcg tablet 25 mcg PO DAILY 06/17/22 12/08/22 History magnesium 200 mg tablet 200 mg PO DAILY 06/17/22 12/08/22 History guaifenesin 600 mg tablet, 600 mg PO Q12HR #30 tabs 06/22/22 12/08/22 Rx extended release 12 hr (Mucus Relief ER) roflumilast 500 mcg tablet 500 mcg PO DAILY 09/17/22 12/08/22 History levalbuterol tartrate 45 1 - 2 puff inhalation Q6H PRN 09/30/22 12/08/22 Rx mcg/actuation aerosol inhaler shortness of breath or wheezing #15 grams prednisone 5 mg tablet See Rx Instructions .Route 09/30/22 12/08/22 Rx .COMPLEX #45 tabs ondansetron 4 mg disintegrating 4 mg PO Q6H PRN Nausea #30 tabs 11/17/22 12/08/22 Rx tablet sucralfate 1 gram tablet 1 g PO ACHS #120 tabs 11/17/22 12/08/22 Rx apixaban 5 mg tablet (Eliquis) 5 mg PO BID 11/29/22 12/08/22 History fluticasone fur. 100 mcg-umeclid 1 inh inhalation DAILY 11/29/22 12/08/22 History 62.5 mcg-vilant 25 mcg inhalat.powder (Trelegy Ellipta) metoprolol tartrate 25 mg tablet 25 mg PO DAILY 11/29/22 12/08/22 History pantoprazole 40 mg tablet,delayed 40 mg PO BID 11/29/22 12/08/22 History release Patient hx anesthesia problems: none Family hx anesthesia problems: none Results Review: All pre-operative results and documents have been reviewed as part of the pre-operative evaluation. [facility] Past Medical History Medical History Abdominal aortic aneurysm Abnormal kidney function study Anxiety Arthritis Bilateral hydronephrosis Chronic anemia Chronic kidney disease, stage 3 Chronic obstructive pulmonary disease Chronic respiratory failure with hypoxia Chronically on oxygen at 4 - 5 L per nasal cannula. Closed intertrochanteric fracture of right hip (10/2019) Treated non operatively. Congestive heart failure Diastolic with most recent echocardiogram January 2019 demonstrating paradoxical septal motion consistent with right ventricular volume overload or elevated right ventricular end-diastolic pressure, EF 60-65%, mildly increased left ventricular wall thickness, grade 1 diastolic dysfunction, severely reduced right ventricular systolic function, severely enlarged right ventricular chamber, severely enl
--- NOTE | 2022-12-08 11:12 | WPDHPUPDATE1 ---
History and Physical Update Update Date/Time: 12/08/22 11:12 History and Physical has been reviewed, including an updated exam of the patient. There are NO changes in the patient's condition. Risks, benefits, and alternatives have been discussed and questions answered. Patient agrees to proceed with procedure.
[2022-12-08 11:13] LABS: Glucose Point of Care 89 mg/dl (65-105)
[2022-12-08 11:27] VITALS: BP 125/63; PULSE 79; RESP 27; O2SAT 96
[2022-12-08 11:37] VITALS: BP 151/87; PULSE 77; RESP 25; O2SAT 100
[2022-12-08 11:47] VITALS: BP 169/89; PULSE 76; RESP 25; O2SAT 100
== END 2022-12-08 12:00 | disposition home or self-care (01) ==
PROVIDERS: PCP Family Medicine Sports Medicine; Visit Provider Internal Medicine Gastroenterology
PROC: 0DJ08ZZ Inspection of Upper Intestinal Tract, Via Natural or Artificial Opening Endoscopic (ICD-10-PCS; CPT 43235; principal; 2022-12-08 11:00)
DX: K29.50 Unspecified chronic gastritis without bleeding (principal); K21.9 Gastro-esophageal reflux disease without esophagitis; I12.9 Hypertensive chronic kidney disease with stage 1 through stage 4 chronic kidney disease, or unspecified chronic kidney disease; E11.22 Type 2 diabetes mellitus with diabetic chronic kidney disease; N18.30 Chronic kidney disease, stage 3 unspecified; F41.9 Anxiety disorder, unspecified; E87.6 Hypokalemia; K58.9 Irritable bowel syndrome, unspecified; R63.4 Abnormal weight loss; F32.A Depression, unspecified; E78.5 Hyperlipidemia, unspecified; J44.9 Chronic obstructive pulmonary disease, unspecified; J96.11 Chronic respiratory failure with hypoxia; I25.10 Atherosclerotic heart disease of native coronary artery without angina pectoris; G47.30 Sleep apnea, unspecified; K22.2 Esophageal obstruction; E11.42 Type 2 diabetes mellitus with diabetic polyneuropathy; M06.9 Rheumatoid arthritis, unspecified; K44.9 Diaphragmatic hernia without obstruction or gangrene; I71.40 Abdominal aortic aneurysm, without rupture, unspecified; D64.9 Anemia, unspecified; F12.90 Cannabis use, unspecified, uncomplicated; Z99.81 Dependence on supplemental oxygen; Z87.891 Personal history of nicotine dependence; Z95.5 Presence of coronary angioplasty implant and graft; Z79.82 Long term (current) use of aspirin; Z79.84 Long term (current) use of oral hypoglycemic drugs; Z79.891 Long term (current) use of opiate analgesic; Z79.51 Long term (current) use of inhaled steroids; Z79.01 Long term (current) use of anticoagulants; Z68.20 Body mass index [BMI] 20.0-20.9, adult
CPT/HCPCS: 43239; 82948; 88305; 88342; J2704; J7120

== ENCOUNTER 2022-12-17 12:56 | Emergency (ER) | payer MEDICARE, SELFPAY ==
[2022-12-17] VITALS (11 sets, daily range): BP systolic 156–193; BP diastolic 81–99; PULSE 78–99; RESP 12–24; TEMP 36.6; O2SAT 96–100
--- NOTE | ~2022-12-17 | XR_ITS ---
XR chest 2V 12/17/2022 13:24 Indication: Chest pain Procedure: 2 view chest Comparison: Comparison to multiple prior studies sequentially, with oldest reviewed study dated 06/19. Findings: Heart size normal. There is bibasilar airspace disease with peribronchial thickening. No si gnificant effusion. No pneumothorax. No acute osseous abnormality. Impression: 1: Bibasilar airspace disease may represent edema or pneumonia. Reviewed, dictated and finalized at location A. Impression: 1: Bibasilar airspace disease may represent edema or pneumonia.
--- NOTE | 2022-12-17 13:04 | ECG_ITS ---
Measurements Intervals [place] Rate: 93 P: 59 DC: 192 QRS: -43 QRSD: 105 T: 63 QT: 363 QTc: 454 Interpretive Statements SINUS RHYTHM LEFT ATRIAL ENLARGEMENT [-0.15mV P WAVE IN V1/V2] MARKED LEFT AXIS DEVIATION [QRS AXIS < -30] POSSIBLE ANTERIOR MYOCARDIAL INFARCTION [30 ms Q WAVE IN V3/V4, OR R < 0.2 mV IN V4], OF INDETERMINATE AGE INTERPRETATION BASED ON A DEFAULT AGE OF 40 YEARS COMPARED TO ECG 11/03/2022 22:00:02 NO SIGNIFICANT CHANGES Electronically Signed On 12-17-2022 13:37:22 CDT by Marine Willis MD
--- NOTE | 2022-12-17 13:16 | ED.ARRPALP ---
HPI - Arrhythmia/Palpitations General Chief Complaint: Arrhythmia/Palpitations Stated Complaint: SVT - self converted Time Seen by Provider: 12/17/22 13:14 History of Present Illness HPI narrative: Patient is a 72-year-old female with history of COPD, on 3 L O2 during the day, 4 L at night, CKD, HTN, HLD, SVT, DM here with chest pain. Patient states that she was doing some activities around the house when she began feeling a squeezing sensation in her mid chest associated with palpitations and a lightheaded feeling. She states that the symptoms persisted for about a half an hour with heart rates at home ranging between the 190s and low 200s. She gave herself 2 sublingual nitroglycerin without a change in her symptoms. Once EMS arrived she had a HR in the 190s-200s and then she self converted without medication. She notes she feels fatigued right now but otherwise asymptomatic. No chest pain currently. Related Data Home Medications Medication Instructions Recorded Confirmed aspirin 81 mg tablet 81 mg PO DAILY 07/12/20 12/08/22 atorvastatin 20 mg tablet 20 mg PO DAILY 01/06/21 12/08/22 losartan 50 mg tablet 50 mg PO DAILY 01/06/21 12/08/22 metformin 500 mg tablet 500 mg PO BID 01/06/21 12/08/22 nitroglycerin 0.4 mg sublingual 0.4 mg sublingual Q5M PRN Chest 09/17/21 12/08/22 tablet Pain acetaminophen 325 mg tablet 325 mg PO Q6H PRN Pain 09/18/21 12/08/22 hydrocodone 5 mg-acetaminophen 325 1 tablet PO Q6-8H PRN Pain 09/18/21 12/08/22 mg tablet bumetanide 1 mg tablet 2 mg PO DAILY 05/28/22 12/08/22 isosorbide mononitrate 60 mg 60 mg PO DAILY 05/28/22 12/08/22 tablet,extended release 24 hr potassium chloride 20 mEq oral 20 meq PO DAILY 05/28/22 12/08/22 packet (Klor-Con) sertraline 100 mg tablet 100 mg PO DAILY 05/28/22 12/08/22 levothyroxine 25 mcg tablet 25 mcg PO DAILY 06/17/22 12/08/22 magnesium 200 mg tablet 200 mg PO DAILY 06/17/22 12/08/22 roflumilast 500 mcg tablet 500 mcg PO DAILY 09/17/22 12/08/22 apixaban 5 mg tablet (Eliquis) 5 mg PO BID 11/29/22 12/08/22 fluticasone fur. 100 mcg-umeclid 1 inh inhalation DAILY 11/29/22 12/08/22 62.5 mcg-vilant 25 mcg inhalat.powder (Trelegy Ellipta) metoprolol tartrate 25 mg tablet 25 mg PO DAILY 11/29/22 12/08/22 pantoprazole 40 mg tablet,delayed 40 mg PO BID 11/29/22 12/08/22 release Allergies Allergy/AdvReac Type Severity Reaction Status Date / Time morphine Allergy Intermediate Itching Verified 12/08/22 10:16 pregabalin Allergy Intermediate Itching Verified 12/08/22 10:16 Review of Systems Review of Systems: CONSTITUTIONAL: Denies fever, chills, or sweats. EYES: Denies visual changes, redness, or discharge. ENT: Denies rhinorrhea, congestion, sore throat, or otalgia. CARDIOVASCULAR: chest pain, palpitations, No edema. RESPIRATORY: Denies cough or dyspnea. GASTROINTESTINAL: Denies abdominal pain, nausea, vomiting, or diarrhea. GENITOURINARY: Denies dysuria or hematuria. SKIN: Denies rash or itching. MUSCULOSKELETAL: Denies back pain, joint pain, or myalgia. NEUROLOGIC: Denies headache, numbness, or weakness. Generalized fatigue. PSYCHIATRIC: Denies anxiety or depression. [facility] Past Medical History Medical History (Updated 12/17/22 @ 15:44 by Carina Ruelas MD) Abdominal aortic aneurysm Abnormal kidney function study Anxiety Arthritis Bilateral hydronephrosis Chronic anemia Chronic kidney disease, stage 3 Chronic obstructive pulmonary disease Chronic respiratory failure with hypoxia Chronically on oxygen at 4 - 5 L per nasal cannula. Closed intertrochanteric fracture of right hip (10/2019) Treated non operatively. Congestive heart failure Diastolic with most recent echocardiogram January 2019 demonstrating paradoxical septal motion consistent with right ventricular volume overload or elevated right ventricular end-diastolic pressure, EF 60-65%, mildly increased left ventricular wall thickness, grade 1 diastolic dysfunction, severely reduced right baldomero
[2022-12-17 14:46] LABS: Hematocrit 32.3 % (37.0-47.0); Hemoglobin 9.5 g/dL (12.0-15.0); Mean Corpuscular HGB Conc 29.4 g/dl (32-36); Mean Corpuscular Hemoglobin 25.7 pg (26-34); Mean Corpuscular Volume 87.5 fl (80-100); Mean Platelet Volume 10.7 fl (7.4-10.4); Platelet Count Result 152 k/mm3 (150-375); Red Blood Count 3.69 M/mm3 (4.2-5.4); Red Cell Distribution Width 18.6 % (11.5-14.5); White Blood Count 5.6 K/mm3 (4.5-10.0)
[2022-12-17 14:56] LABS: Alanine Aminotransferase 11 U/L (6-35); Albumin Level 3.7 g/dL (3.5-5.1); Alkaline Phosphatase 96 U/L (38-126); Anion Gap 6 mmol/L (8-16); Aspartate Amino Transferase 22 U/L (14-36); Bilirubin,Total 0.5 mg/dL (0.2-1.3); Blood Urea Nitrogen 25 mg/dL (7-17); Calcium 7.9 mg/dL (8.4-10.2); Carbon Dioxide 31 mmol/L (22-30); Chloride 101 mmol/L (98-107); Estimated CRCL calculation 29 ml/min; Estimated Glomerular Filt Rate 40; Glucose 115 mg/dL (65-110); Lipase 41 U/L (23-300); Potassium 3.6 mmol/L (3.4-5.0); Sodium 138 mmol/L (137-145)
[2022-12-17 14:57] LABS: Magnesium 1.2 mg/dL (1.6-2.3)
[2022-12-17 15:00] LABS: INR 1.1; Partial Thromboplastin Time 29.7 SECONDS (22.3-36.8); Prothrombin Time 15.1 Seconds (11.1-14.7)
[2022-12-17 15:07] LABS: Troponin I 0.024 ng/mL (0.000-0.034)
[2022-12-17 15:12] LABS: Band Neutrophils Percent 1 % (0-6); Eosinophils Absolute Manual 1.17 K/mm3 (0.02-0.5); Eosinophils Percent Manual 21 % (0-4); Lymphocytes Absolute Manual 0.89 K/mm3 (1.1-4.5); Monocytes Absolute Manual 0.67 K/mm3 (0.1-0.90); Monocytes Percent Manual 12 % (3-9); Neutrophils Absolute Manual 2.85 K/mm3 (1.7-7.2); Neutrophils Percent Manual 50 % (46-73); Platelet Estimate Adequate (Adequate); Total Cells Counted 100
[2022-12-17 15:13] LABS: Anisocytosis 2+ (NORMAL); Hypochromasia 1+ (NORMAL); Schistocytes None Seen (NORMAL)
[2022-12-17] MEDS: MAGNESIUM SULF 2 GM/WATER 50ML 2 GM/50 ML BAG IVPB (16:02)
[2022-12-17 16:13] LABS: Free T4 Free Thyroxine Reflex 0.74 ng/dL (0.78-2.19)
[2022-12-17 17:58] LABS: Troponin I 0.038 ng/mL (0.000-0.034)
[2022-12-17] MEDS: HYDROcodone/acetaminophen (*CRX) 5-325 MG TABLET 1 TAB PO (20:33)
[2022-12-17 21:15] LABS: Troponin I 0.043 ng/mL (0.000-0.034)
== END 2022-12-17 22:19 | disposition home or self-care (01) ==
PROVIDERS: Emergency Medicine; Emergency Provider Student in an Organized Health Care Education/Training Program; PCP Family Medicine Sports Medicine
DX: I47.10 Supraventricular tachycardia, unspecified (principal); E83.42 Hypomagnesemia; R07.9 Chest pain, unspecified; J44.9 Chronic obstructive pulmonary disease, unspecified; I13.0 Hypertensive heart and chronic kidney disease with heart failure and stage 1 through stage 4 chronic kidney disease, or unspecified chronic kidney disease; E11.22 Type 2 diabetes mellitus with diabetic chronic kidney disease; N18.30 Chronic kidney disease, stage 3 unspecified; I50.9 Heart failure, unspecified; E78.5 Hyperlipidemia, unspecified; Z99.81 Dependence on supplemental oxygen; Z87.891 Personal history of nicotine dependence
CPT/HCPCS: 36415; 71046; 80053; 83690; 83735; 84439; 84443; 84484; 85025; 85610; 85730; 93005; 96365; 99284; A9270; J3475

== ENCOUNTER 2022-12-29 16:40 | Outpatient (CLI) | payer MEDICARE, SELFPAY ==
[2022-12-29 17:27] LABS: Hematocrit 33.6 % (37.0-47.0); Hemoglobin 9.8 g/dL (12.0-15.0); Mean Corpuscular HGB Conc 29.2 g/dl (32-36); Mean Corpuscular Hemoglobin 25.7 pg (26-34); Mean Corpuscular Volume 88.2 fl (80-100); Mean Platelet Volume 10.7 fl (7.4-10.4); Platelet Count Result 227 k/mm3 (150-375); Red Blood Count 3.81 M/mm3 (4.2-5.4); Red Cell Distribution Width 17.9 % (11.5-14.5)
[2022-12-29 17:40] LABS: Albumin Level 4.2 g/dL (3.5-5.1); Anion Gap 5 mmol/L (8-16); Blood Urea Nitrogen 44 mg/dL (7-17); Calcium 9.3 mg/dL (8.4-10.2); Carbon Dioxide 34 mmol/L (22-30); Chloride 99 mmol/L (98-107); Creatine Kinase 25 U/L (30-135); Estimated Glomerular Filt Rate 26; Glucose 122 mg/dL (65-110); Phosphorus 3.9 mg/dL (2.5-4.5); Potassium 4.3 mmol/L (3.4-5.0); Sodium 138 mmol/L (137-145)
[2022-12-29 18:16] LABS: Parathyroid Intact 270.7 pg/mL (7.5-53.5)
[2022-12-29 19:16] LABS: Erythrocyte Sedimentation Rate 41 mm/hr (0-20)
[2022-12-29 21:03] LABS: Complement C3 90 mg/dL (88-165)
[2022-12-31 19:32] LABS: Complement Total CH50 >60 U/mL (31-60)
[2023-01-06 05:25] LABS: Anti Nuclear Antibody Titer 1:40 (Negative)
== END 2022-12-29 16:41 | disposition home or self-care (01) ==
PROVIDERS: PCP Family Medicine Sports Medicine; Visit Provider Internal Medicine Nephrology
DX: E11.9 Type 2 diabetes mellitus without complications (principal); N18.32 Chronic kidney disease, stage 3b
CPT/HCPCS: 36415; 80069; 82550; 83970; 85027; 85652; 86038; 86039; 86160; 86162; 86334

== ENCOUNTER 2023-01-04 10:34 | Outpatient (NON) | payer MEDICARE, SELFPAY ==
[2023-01-04 11:39] LABS: Total Volume 24 Hour Urine 1350 ml
[2023-01-04 11:41] LABS: Total Volume 24 Hour Urine 1350 ml
[2023-01-04 11:46] LABS: Creatinine 24 Hour Urine 0.5 gm/24 (0.8-1.8); Creatinine Urine 39.7 mg/dL
[2023-01-04 12:01] LABS: Appearance Urine Clear (Clear); Bacteria Urine None Seen /hpf; Bilirubin Urine Negative (Negative); Blood Urine Negative (Negative); Color Urine Yellow (Yellow); Glucose Urine UA Negative (Negative); Hyaline Casts Urine Present /lpf; Ketones Urine Negative (Negative); Leukocyte Esterase Ur Negative LEU/UL (NEGATIVE); Need Manual Microscopic Reviewed; Nitrate Urine Negative (Negative); Protein Urine Trace mg/dL (Negative); RBC Urine 0-2 /hpf (0-2); Specific Grav Ur 1.017 (1.001-1.035); Squamous Epithelial Cell Urine Occasional /hpf (Few); Urobilinogen Urine 0.2 mg/dL (<2.0); WBC Urine 0-5 /hpf (0-3); pH Urine 5.5 (5.0-9.0)
[2023-01-04 12:04] LABS: Add Urine Microscopic? YES
[2023-01-04 12:15] LABS: Urea Nitrogen 24 Hour Urine 3.1 G/DAY (12-20)
== END 2023-01-04 10:35 | disposition home or self-care (01) ==
PROVIDERS: PCP Family Medicine Sports Medicine; Visit Provider Internal Medicine Nephrology
DX: N18.32 Chronic kidney disease, stage 3b (principal)
CPT/HCPCS: 81001; 81050; 82570; 84540; 86335

== ENCOUNTER 2023-01-18 10:59 | Outpatient (CLI) | payer MEDICARE, SELFPAY ==
[2023-01-18 12:00] LABS: Rheumatoid Factor 62.7 IU/ML (<12)
[2023-01-18 12:09] LABS: Erythrocyte Sedimentation Rate 33 mm/hr (0-20)
[2023-01-20 09:30] LABS: SM Antibody <1.0; SM/RNP Antibody <1.0; SS-A <1.0; SS-B <1.0
[2023-01-21 10:15] LABS: Anti Glomerular Basement Memb <1.0 AI (<1.0)
[2023-01-22 14:17] LABS: ANCA Screen Negative (Negative)
[2023-01-24 20:34] LABS: Cryoglobulin, QL Negative (Negative)
== END 2023-01-18 11:00 | disposition home or self-care (01) ==
PROVIDERS: PCP Family Medicine Sports Medicine; Visit Provider Internal Medicine Nephrology
DX: R76.0 Raised antibody titer (principal)
CPT/HCPCS: 36415; 82595; 83520; 85652; 86036; 86038; 86225; 86235; 86430